=== PATIENT | female | born 1945 | race Caucasian/White ===

== ENCOUNTER 2018-01-05 14:46 | Inpatient (IN) | payer OTHER ==
[~2018-01-05] VITALS: Ht 167.6 cm; Wt 100.5 kg
[~2018-01-05 14:46] MED LIST: AMLO-110 PO; CARV25TA2 PO; CLX20 PO; CMD5 PO; CRD200 PO; HYDC25 PO; LISI40TA PO; MGNO400 PO; POTA-639 PO; ZCR40 PO
[2018-01-05] MEDS ORDERED: MoRPHine SULFATE 4 MG/ML 1 ML CARP\\VIAL IV STA (15:12)
[2018-01-05] MEDS ORDERED: ONDANSETRON INJ 2 MG/ML 2 ML VIAL IV STA (15:12)
--- NOTE | 2018-01-05 15:23 | EMERGENCY ROOM VISIT NOTE ---
History Report prepared by Anthony: Rajinder Salazar Under the Supervision of: Dr. Mak Sylvester M.D. First contact with patient: 15:00 Chief Complaint: FALL Stated Complaint: FALL,HIT HEAD, BACK PAIN History of Present Illness The patient is a 72 year old white female with a past medical history of CVA, A- Fib, CHF, depression, dyslipidemia, GERD, HTN, cataract surgery, and migraines who presents to the ED with a cc of a sudden fall occurring an hour and a half ago. She hit the back of her head on concrete after losing her balance. Positive back pain that is worse with breathing that comes and goes. Negative abdominal pain and neck pain. She is on Coumadin for strokes and A-fib. Source of History: patient Onset: an hour and half ago Position: back, other (generalized) Timing: other (sudden) Modifying Factors (Worsening): breathing Associated Symptoms: + back pain, No neck pain, No abdominal pain Review of Systems See HPI for pertinent positives and negatives. A total of ten systems were reviewed and were otherwise negative. Past Medical & Surgical Medical Problems: (1) CHF exacerbation (2) Depression (3) Dyslipidemia (4) GERD (gastroesophageal reflux disease) (5) Hypertension (6) Hypoxia (7) Migraine headache Surgical Problems: (1) H/O total knee replacement Family History FH: coronary artery disease FH: diabetes mellitus FH: stroke Social History Smoking Status: Former Smoker Alcohol Use: occasionally Marital Status: Housing Status: lives with family Current/Historical Medications Scheduled Amiodarone HCl (Amiodarone HCl), 200 MG PO BID Amlodipine (Norvasc), 5 MG PO DAILY Carvedilol (Coreg), 1 TAB PO BID Citalopram Hydrobromide (Celexa), 20 MG PO DAILY Lisinopril (Zestril), 40 MG PO DAILY Magnesium Oxide (Magnesium-Oxide), 400 MG PO BID Potassium Chloride (Micro-K Ext Rel), 10 MEQ PO BID Simvastatin (Zocor), 80 MG PO QPM Warfarin Sod (Coumadin), 2.5 MG PO DAILY Allergies Coded Allergies: Penicillins (Verified Allergy, Unknown, unknown, 01/05/18) Sulfa Antibiotics (Verified Allergy, Unknown, UNKNOWN, 01/05/18) Physical Exam Vital Signs Date Time Temp Pulse Resp B/P (MAP) Pulse Ox O2 Delivery O2 Flow Rate FiO2 4/25/18 19:07 65 16 149/81 97 Room Air 01/05/18 18:19 97 Nasal Cannula 2.0 01/05/18 18:16 67 13 95 01/05/18 18:13 146/81 01/05/18 18:11 69 19 93 01/05/18 18:06 68 19 94 01/05/18 18:01 68 13 146/81 89 01/05/18 17:56 70 17 90 01/05/18 17:51 68 16 93 01/05/18 17:46 68 17 92 01/05/18 17:41 68 20 90 01/05/18 17:36 67 16 88 01/05/18 17:31 64 16 168/84 90 01/05/18 17:26 67 15 92 01/05/18 17:21 70 11 91 01/05/18 17:16 66 92 01/05/18 17:11 69 92 01/05/18 17:01 182/86 01/05/18 16:56 70 20 96 01/05/18 16:51 65 13 93 01/05/18 16:46 69 22 94 01/05/18 16:41 67 20 91 01/05/18 16:36 67 23 90 01/05/18 16:32 68 01/05/18 16:31 68 29 181/94 94 01/05/18 16:28 190/89 01/05/18 16:01 58 10 160/67 93 01/05/18 15:56 63 13 100 01/05/18 15:51 95 Room Air 01/05/18 15:51 64 15 95 01/05/18 15:46 64 13 93 01/05/18 15:41 61 16 97 01/05/18 15:39 145/75 01/05/18 15:31 170/79 01/05/18 14:50 36.4 57 20 172/79 97 Room Air Physical Exam GENERAL: Awake, alert, well-appearing, NAD HENT: Normocephalic. Mild posterior occipital head pain. Mild erythema. No bleeding. EYES: Normal conjunctiva. Sclera non-icteric. PERRL. No anisocoria. NECK: Supple. No nuchal rigidity. FROM. No midline C-spine TTP RESPIRATORY: CTAB, no rhonchi, wheezing, crackles CARDIAC: RRR, no MRG ABDOMEN: Soft, NTND, BS+ MSK: Some midline mid thoracic T-spine TTP. No step offs. Posterior left rib pain. No crepitus. No ecchymosis. No chest wall TTP, no LE edema. No BLE or BUE pain NEURO: GCS 15, CN 2-12 intact, moves all 4s on command SKIN: No rash or jaundice noted. Medical Decision & Procedures ER Provider Diagnostic Interpretation: Radiology results as stated below per my review and radiologist interpretation: CT HEAD WITHOUT CONTRAST (CT) CLINICAL HISTORY: Head pain status post trauma COMPARISON STUDY: No previous studies for comparison. TECHNIQUE: Axial CT of the brain is performed from the vertex to the skull base. IV contrast was not administered for this examination. A dose lowering technique was utilized adhering to the principles of ALARA. CT DOSE: 638.56 mGycm FINDINGS: No intra or extra-axial mass lesions are visualized. There is no CT evidence of acute cortical infarction. There is no evidence of midline shift. There is no acute hemorrhage. No calvarial fractures are visualized. There are patchy white matter hypodensities likely on a small vessel basis. There is a lacunar infarct within the right centrum semiovale. There is no evidence of pathologic ventricular dilatation. There is no evidence of acute sinusitis IMPRESSION: No acute intracranial findings Electronically signed by: Phan Henderson M.D. 01/05/2018 4:30 PM Dictated Date/Time: 01/05/2018 4:[address] OF THE CHEST WITH IV CONTRAST CLINICAL HISTORY: Fall. COMPARISON STUDY: Chest radiograph September 07, 2015. TECHNIQUE: Following IV administration of 93 mL of Optiray-320, helical axial images of the chest were obtained. Sagittal and coronal reconstructions were viewed as well as maximal intensity projections on an independent 3-D workstation. A dose lowering technique was utilized adhering to the principles of ALARA. CT DOSE: 557.51 mGycm FINDINGS: There is no evidence of traumatic injury to the thoracic aorta. The heart is moderately enlarged. There is no pericardial effusion. Stents of atherosclerotic plaque of the coronary arteries is noted. There is thinning of the left ventricular apex with bulging. No pneumothorax is noted. There are multifocal groundglass opacities throughout the lungs. There is no pleural effusion. No acute rib or thoracic spine fractures identified. Moderate bilateral renal cortical thinning is noted. 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 There is no thoracic lymphadenopathy. IMPRESSION: 1. No definite acute traumatic findings within the chest. 2. Multifocal groundglass opacities throughout the lungs. Multifocal pneumonia is favored. Pulmonary contusions could appear similar although are considered less likely. A follow-up chest CT in 3 months to ensure resolution is recommended to exclude the much less likely possibility of a neoplastic process. 3. Moderate cardiomegaly and extensive coronary artery calcification. Electronically signed by: Giovanni Dixon M.D. 01/05/2018 4:45 PM Dictated Date/Time: 01/05/2018 4:[address] OF THE CERVICAL SPINE CLINICAL HISTORY: Neck pain status post trauma COMPARISON STUDY: No previous studies for comparison. CT DOSE: 432.03 mGycm TECHNIQUE: CT scan of the cervical spine was performed from the skull base to the thoracic inlet. Images are reviewed in the axial, sagittal, and coronal planes. IV contrast was not administered for this examination. A dose lowering technique was utilized adhering to the principles of ALARA. FINDINGS: There is a left mastoid effusion. There is no evidence for an apical pneumothorax. There is a 7 x 3 mm right apical pulmonary nodule. The prevertebral soft tissues are normal. No fractures or subluxations are visualized. There are multilevel degenerative changes. There is a developmentally incomplete posterior C1 arch IMPRESSION: No evidence of acute fracture or traumatic subluxation. Electronically signed by: Phan Henderson M.D. 01/05/2018 4:35 PM Dictated Date/Time: 01/05/2018 4:31 PM Laboratory Results 01/05/18 15:20 Red Blood Count 4.07, Mean Corpuscular Volume 98.5, Mean Corpuscular Hemoglobin 32.4, Mean Corpuscular Hemoglobin Concent 32.9, Mean Platelet Volume 9.5 01/05/18 15:20 Test 01/05/18 15:20 White Blood Count 24.57 K/uL (4.8-10.8) Red Blood Count 4.07 M/uL (4.2-5.4) Hemoglobin 13.2 g/dL (12.0-16.0) Hematocrit 40.1 % (37-47) Mean Corpuscular Volume 98.5 fL (80-100) Mean Corpuscular Hemoglobin 32.4 pg (25-34) Mean Corpuscular Hemoglobin Concent 32.9 g/dl (32-36) Platelet Count 223 K/uL (130-400) Mean Platelet Volume 9.5 fL (7.4-10.4) RDW Standard Deviation 52.2 fL (36.4-46.3) RDW Coefficient of Variation 14.6 % (11.5-14.5) Neutrophils % (Manual) 15.0 % Lymphocytes % (Manual) 84.1 % Monocytes % (Manual) 0.9 % Neutrophils # (Manual) 3.69 K/uL (1.4-6.5) Total Absolute Neutrophils 3.69 K/uL (1.4-6.5) Lymphocytes # (Manual) 20.66 K/uL (1.2-3.4) Total Absolute Lymphocytes 20.66 K/uL (1.2-3.4) Monocytes # (Manual) 0.22 K/uL (0.11-0.59) Smudge Cells PRESENT Prothrombin Time 32.1 SECONDS (9.0-12.0) Prothromb Time International Ratio 3.1 (0.9-1.1) Activated Partial Thromboplast Time 39.1 SECONDS (21.0-31.0) Partial Thromboplastin Ratio 1.5 Anion Gap 5.0 mmol/L (3-11) Est Creatinine Clear Calc Drug Dose 62.0 ml/min Estimated GFR () 66.7 Estimated GFR (Non- 57.5 BUN/Creatinine Ratio 18.9 (10-20) Calcium Level 9.2 mg/dl (8.5-10.1) Total Bilirubin 0.7 mg/dl (0.2-1) Direct Bilirubin 0.2 mg/dl (0-0.2) Aspartate Amino Transf (AST/SGOT) 24 U/L (15-37) Alanine Aminotransferase (ALT/SGPT) 42 U/L (12-78) Alkaline Phosphatase 144 U/L (45-117) Total Protein 7.2 gm/dl (6.4-8.2) Albumin 3.5 gm/dl (3.4-5.0) Laboratory results reviewed by me Medications Administered Medications (Trade) Dose Ordered Sig/Kurt Route Start Time Stop Time Status Last Admin Dose Admin Ondansetron HCl (Zofran Inj) 4 mg NOW STAT IV 01/05/18 15:12 01/05/18 15:18 DC 01/05/18 15:37 4 MG Morphine Sulfate (MoRPHine SULFATE INJ) 4 mg NOW STAT IV 01/05/18 15:12 01/05/18 15:18 DC 01/05/18 15:38 4 MG Tramadol HCl (Ultram Tab) 50 mg NOW STAT PO 01/05/18 16:28 01/05/18 16:29 DC 01/05/18 16:52 50 MG Morphine Sulfate (MoRPHine SULFATE INJ) 8 mg NOW STAT IV 01/05/18 17:43 01/05/18 17:44 DC 01/05/18 18:08 8 MG Ceftriaxone Sodium (Rocephin Inj) 1 gm NOW STAT IV 01/05/18 18:19 01/05/18 18:21 DC 01/05/18 18:27 1 GM Doxycycline Hyclate (Vibramycin Cap) 100 mg NOW STAT PO 01/05/18 18:20 01/05/18 18:21 DC 01/05/18 18:28 100 MG Cyclobenzaprine HCl (Flexeril Tab) 5 mg ONE STAT PO 01/05/18 18:54 01/05/18 18:55 DC 01/05/18 19:05 5 MG ECG Per My Interpretation Indication: back/shoulder pain, other (fall) Rate (beats per minute): 65 Rhythm: normal sinus Findings: other (Prolonged QT, normal axis, no overt STS changes or TWI) ED Course 1500: The patient was evaluated in room B11. A complete history and physical exam was performed. 1603: I reevaluated the patient, and she was doing well. 1653: I reassessed the patient, and she told me that she has a history of chronic leukemia. 1743: The patient was in pain, and her family is concerned about her well being at home. We are going to try to ambulate her again, then if they are still concerned, then we will talk about hospitalist evaluation. 1843: Upon reexamination, the patient was doing okay. I discussed the test results and treatment plan with her. The patient will be evaluated for further management. 194: The patient notes that her pain has improved. 1950: Discussed the patient's case with Dr. Nadia Coreas [facility] Hospitalist. The patient will be evaluated for further treatment and disposition. Medical Decision Nursing notes reviewed. Ancillary studies and prior records reviewed. The patient is a 72 year old white female with a past medical history of CVA, A- Fib, CHF, depression, dyslipidemia, GERD, HTN, cataract surgery, CLL and migraines who presents to the ED with a cc of a sudden fall occurring an hour and a half ago. Differential diagnosis: Etiologies such as fracture, dislocation, intra-abdominal, pneumothorax, intrathoracic , intracranial, neurologic, as well as other traumatic pathologies were entertained. Patient was seen and evaluated the bedside. Patient reportedly had a mechanical fall approximately one half hours prior to arrival. It occurred around 1:30 PM. Patient fallen backward struck her head. Patient did complain of some midline thoracic as well as posterior rib pain. Patient does take Coumadin for history of A. fib and PE. Patient does have a history of prior stroke. Patient had blood work completed along with a CT of the head C-spine and chest. Patient CTs were negative for any acute traumatic injury. There was concern for possible pneumonia. Patient does have a white blood cell count greater than 20,000. It is lymphocytic predominant the patient does relate that she does have a history of CLL. Not currently being treated. Patient otherwise is fairly well-appearing. Pain is mildly improved. Patient was given some Levaquin given her pneumonia. Patient was informed of this finding and told to continue her medications and to follow-up as an outpatient. Patient was able to ambulate to the bathroom without difficulty. Patient has a curb 65 score of 1 given the patient's age. Also the white count may be more related to her CLL and infection. There was a comment that this may be related to pulmonary contusion but this was deemed less likely. Patient was having some persistent pain. She was given additional pain medications. There is a concern from family that she may not be safe for home or even at the daughter's house. Plan was to reassess her after her pain medication and see if she would be suitable for outpatient follow-up and treatment versus pain control and possible rehab. Patient did have some mild hypoxia. The patient's sat on room air was 88%. Given the patient's pneumonia and white count along with her intractable pain did page the hospitalist to further discuss the patient. Medication Reconcilliation Current Medication List: was personally reviewed by me Blood Pressure Screening Patient's blood pressure: Elevated blood pressure Monitored by the hospitalist Consults Time Called: 1914 Consulting Physician: Dr. Piper BECERRIL Hospitalist Returned Call: 1949 Discussed the patient's case with Dr. Nadia BECERRIL Hospitalist. The patient will be evaluated for further treatment and disposition. Impression Primary Impression: Fall Additional Impressions: Contusion of multiple sites PNA (pneumonia) Scribe Attestation The scribe's documentation has been prepared under my direction and personally reviewed by me in its entirety. I confirm that the note above accurately reflects all work, treatment, procedures, and medical decision making performed by me. Departure Information Dispostion Being Evaluated By Hospitalist Referrals Rigo Robison M.D. (PCP) Problem Qualifiers Primary Impression: Fall Encounter type: initial encounter Qualified Codes: W19.XXXA - Unspecified fall, initial encounter Additional Impressions: PNA (pneumonia) Pneumonia type: due to unspecified organism Laterality: left Lung location : lower lobe of lung Qualified Codes: J18.1 - Lobar pneumonia, unspecified organism
[2018-01-05 15:29] LABS: HEMATOCRIT 40.1 % (37-47); HEMOGLOBIN 13.2 g/dL (12.0-16.0); MEAN CELL VOLUME 98.5 fL (80-100); MEAN CORPUSCULAR HEMOGLOBIN 32.4 pg (25-34); MEAN CORPUSCULAR HGB CONC 32.9 g/dl (32-36); MEAN PLATELET VOLUME 9.5 fL (7.4-10.4); PLATELET COUNT 223 K/uL (130-400); RED CELL DISTRIBUTION WIDTH CV 14.6 % (11.5-14.5); RED CELL DISTRIBUTION WIDTH SD 52.2 fL (36.4-46.3); WHITE BLOOD COUNT 24.57 K/uL (4.8-10.8)
[2018-01-05] MEDS ORDERED: OPTIRAY 320 IV PRN (15:30)
[2018-01-05 15:45] LABS: INR 3.1 (0.9-1.1); PTT PATIENT 39.1 SECONDS (21.0-31.0)
[2018-01-05 15:52] LABS: ALBUMIN 3.5 gm/dl (3.4-5.0); CALCIUM 9.2 mg/dl (8.5-10.1); CREATININE 0.97 mg/dl (0.60-1.20)
[2018-01-05 15:54] LABS: TOTAL PROTEIN 7.2 gm/dl (6.4-8.2)
[2018-01-05] MEDS ORDERED: TRAMADOL HCL 50 MG TAB PO STA (16:28)
--- NOTE | 2018-01-05 16:31 | DIAGNOSTIC IMAGING REPORT ---
CT HEAD WITHOUT CONTRAST (CT) CLINICAL HISTORY: Head pain status post trauma COMPARISON STUDY: No previous studies for comparison. TECHNIQUE: Axial CT of the brain is performed from the vertex to the skull base. IV contrast was not administered for this examination. A dose lowering technique was utilized adhering to the principles of ALARA. CT DOSE: 638.56 mGycm FINDINGS: No intra or extra-axial mass lesions are visualized. There is no CT evidence of acute cortical infarction. There is no evidence of midline shift. There is no acute hemorrhage. No calvarial fractures are visualized. There are patchy white matter hypodensities likely on a small vessel basis. There is a lacunar infarct within the right centrum semiovale. There is no evidence of pathologic ventricular dilatation. There is no evidence of acute sinusitis IMPRESSION: No acute intracranial findings Electronically signed by: Phan Henderson M.D. 01/05/2018 4:30 PM Dictated Date/Time: 01/05/2018 4:26 PM
--- NOTE | 2018-01-05 16:36 | DIAGNOSTIC IMAGING REPORT ---
CT OF THE CERVICAL SPINE CLINICAL HISTORY: Neck pain status post trauma COMPARISON STUDY: No previous studies for comparison. CT DOSE: 432.03 mGycm TECHNIQUE: CT scan of the cervical spine was performed from the skull base to the thoracic inlet. Images are reviewed in the axial, sagittal, and coronal planes. IV contrast was not administered for this examination. A dose lowering technique was utilized adhering to the principles of ALARA. FINDINGS: There is a left mastoid effusion. There is no evidence for an apical pneumothorax. There is a 7 x 3 mm right apical pulmonary nodule. The prevertebral soft tissues are normal. No fractures or subluxations are visualized. There are multilevel degenerative changes. There is a developmentally incomplete posterior C1 arch IMPRESSION: No evidence of acute fracture or traumatic subluxation. Electronically signed by: Phan Henderson M.D. 01/05/2018 4:35 PM Dictated Date/Time: 01/05/2018 4:31 PM
--- NOTE | 2018-01-05 16:47 | DIAGNOSTIC IMAGING REPORT ---
CT OF THE CHEST WITH IV CONTRAST CLINICAL HISTORY: Fall. COMPARISON STUDY: Chest radiograph September 07, 2015. TECHNIQUE: Following IV administration of 93 mL of Optiray-320, helical axial images of the chest were obtained. Sagittal and coronal reconstructions were viewed as well as maximal intensity projections on an independent 3-D workstation. A dose lowering technique was utilized adhering to the principles of ALARA. CT DOSE: 557.51 mGycm FINDINGS: There is no evidence of traumatic injury to the thoracic aorta. The heart is moderately enlarged. There is no pericardial effusion. Stents of atherosclerotic plaque of the coronary arteries is noted. There is thinning of the left ventricular apex with bulging. No pneumothorax is noted. There are multifocal groundglass opacities throughout the lungs. There is no pleural effusion. No acute rib or thoracic spine fractures identified. Moderate bilateral renal cortical thinning is noted. 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 There is no thoracic lymphadenopathy. IMPRESSION: 1. No definite acute traumatic findings within the chest. 2. Multifocal groundglass opacities throughout the lungs. Multifocal pneumonia is favored. Pulmonary contusions could appear similar although are considered less likely. A follow-up chest CT in 3 months to ensure resolution is recommended to exclude the much less likely possibility of a neoplastic process. 3. Moderate cardiomegaly and extensive coronary artery calcification. Electronically signed by: Giovanni Dixon M.D. 01/05/2018 4:45 PM Dictated Date/Time: 01/05/2018 4:35 PM
[2018-01-05] MEDS ORDERED: LEVAQUIN 750MG / 150ML D5W IV ONE (17:15)
[2018-01-05] MEDS ORDERED: MoRPHine SULFATE 10 MG/ML CARP/VIAL IV STA (17:43)
[2018-01-05] MEDS ORDERED: SIMV80TA2 PO (17:59)
[2018-01-05] MEDS ORDERED: CITA20TA9 PO (17:59)
[2018-01-05] MEDS ORDERED: CMD/25 PO (17:59)
[2018-01-05] MEDS ORDERED: POTA10CA28 PO (17:59)
[2018-01-05] MEDS ORDERED: CEFTRIAXONE SOD INJ 1 GM ADDVIAL IV STA (18:19)
[2018-01-05] MEDS ORDERED: DOXYCYCLINE HYCLATE 100 MG CAP PO STA (18:20)
[2018-01-05] MEDS ORDERED: CYCLOBENZAPRINE HCL 5 MG TAB PO STA (18:54)
--- NOTE | 2018-01-05 19:32 | History and Physical ---
History & Physical Date & Time of Service: Jan 05, 2018 at 19:26 Chief Complaint: Fall,Hit Head, Back Pain Primary Care Physician: Mary Jane Cruz D.O. History of Present Illness Source: patient, family, hospital records 72 y/o F Hx CLL, PAF, CVA x 2, CAD/NE, HTN, HPL, obese, GERD, depression, combined CHF. She takes Coumadin for her AF and suffered a mechanical fall with trauma to her back and the back of her head. She primarily complained of lower thoracic back pain on arrival to the ER. It was noted that her oxygen saturation was in the mid to high 80s, although she had not complained of SOB, a cough or a fever. A skeletal survey and a head CT did not support any significant trauma. A CT of the chest however, was consistent with a BL pneumonia. Past Medical/Surgical History 1) Combined CHF - diastolic dysfunction, EF 40% - echo 2014 2) Paroxysmal AF 3) CAD - history of NE - ischemia in distribution of LAD suspected on echo 4) HTN 5) HPL 6) Obese 7) CLL - leukocytosis in mid 20s at baseline 8) GERD 9) Depression 10 History of CVA x 2 Family History FH: coronary artery disease FH: diabetes mellitus FH: stroke Social History Smoking Status: Former Smoker Marital Status: Immunizations History of Influenza Vaccine: Yes Influenza Vaccine Date: Jun 13, 2011 History of Tetanus Vaccine?: No History of Pneumococcal: Yes Pneumococcal Date: Jun 13, 2011 History of Hepatitis B Vaccine: No Allergies Coded Allergies: Penicillins (Verified Allergy, Unknown, unknown, 01/05/18) Sulfa Antibiotics (Verified Allergy, Unknown, UNKNOWN, 01/05/18) Home Medications Scheduled Amiodarone HCl (Amiodarone HCl), 200 MG PO BID Amlodipine (Norvasc), 5 MG PO DAILY Carvedilol (Coreg), 1 TAB PO BID Citalopram Hydrobromide (Celexa), 20 MG PO DAILY Lisinopril (Zestril), 40 MG PO DAILY Magnesium Oxide (Magnesium-Oxide), 400 MG PO BID Potassium Chloride (Micro-K Ext Rel), 10 MEQ PO BID Simvastatin (Zocor), 80 MG PO QPM Warfarin Sod (Coumadin), 2.5 MG PO DAILY Review of Systems Constitutional: No fever, No chills, No sweats Eyes: No worsening of vision ENT: No hearing loss, No nasal symptoms Respiratory: No cough, No sputum, No wheezing, No shortness of breath Cardiovascular: No chest pain, No orthopnea, No PND Abdomen: No pain Musculoskeletal: + problem reported (PAin in mid back after fall) Genitourinary - Female: No dysuria, No urinary frequency, No urinary urgency Neurologic: + balance problems (Chronic unsteady gate per daughter), No paralysis, No numbness/tingling, No vertigo Endocrine: No fatigue Hematologic / Lymphatic: No abnormal bleeding/bruising Integumentary: No rash Allergic / Immunologic: No environmental allergies Physical Exam Vital Signs Date Time Temp Pulse Resp B/P (MAP) Pulse Ox O2 Delivery O2 Flow Rate FiO2 01/05/18 19:07 65 16 149/81 97 Room Air 01/05/18 18:19 97 Nasal Cannula 2.0 01/05/18 18:16 67 13 95 01/05/18 18:13 146/81 01/05/18 18:11 69 19 93 01/05/18 18:06 68 19 94 01/05/18 18:01 68 13 146/81 89 01/05/18 17:56 70 17 90 01/05/18 17:51 68 16 93 01/05/18 17:46 68 17 92 01/05/18 17:41 68 20 90 01/05/18 17:36 67 16 88 01/05/18 17:31 64 16 168/84 90 01/05/18 17:26 67 15 92 01/05/18 17:21 70 11 91 01/05/18 17:16 66 92 01/05/18 17:11 69 92 01/05/18 17:01 182/86 01/05/18 16:56 70 20 96 01/05/18 16:51 65 13 93 01/05/18 16:46 69 22 94 01/05/18 16:41 67 20 91 01/05/18 16:36 67 23 90 01/05/18 16:32 68 01/05/18 16:31 68 29 181/94 94 01/05/18 16:28 190/89 01/05/18 16:01 58 10 160/67 93 01/05/18 15:56 63 13 100 01/05/18 15:51 95 Room Air 01/05/18 15:51 64 15 95 01/05/18 15:46 64 13 93 01/05/18 15:41 61 16 97 01/05/18 15:39 145/75 01/05/18 15:31 170/79 01/05/18 14:50 36.4 57 20 172/79 97 Room Air General Appearance: WD/WN, no apparent distress Head: normocephalic, + pertinent finding (Erythmea without significant hematoma at back of head) Eyes: normal inspection, EOMI ENT: normal ENT inspection, pharynx normal Neck: supple, no JVD Respiratory/Chest: chest non-tender, lungs clear, + pertinent finding (NO audible crackle or wheezing) Cardiovascular: regular rate, rhythm, + systolic murmur, + abnormal rhythm (LE edema - L > R due to previous fracture) Abdomen/GI: normal bowel sounds, non tender, soft Back: normal inspection, no CVA tenderness, + pertinent finding (There is some tenderness to palpation of the mid back) Extremities/Musculoskelatal: + pertinent finding (LE edema - L > R due to previous fracture) Neurologic/Psych: inside meter tester II-XII nml as tested, no motor/sensory deficits, alert Skin: normal color Diagnostics Laboratory Results Results Past 24 Hours Test 01/05/18 15:20 Range/Units White Blood Count 24.57 4.8-10.8 K/uL Red Blood Count 4.07 4.2-5.4 M/uL Hemoglobin 13.2 12.0-16.0 g/dL Hematocrit 40.1 37-47 % Mean Corpuscular Volume 98.5 80-100 fL Mean Corpuscular Hemoglobin 32.4 25-34 pg Mean Corpuscular Hemoglobin Concent 32.9 32-36 g/dl Platelet Count 223 130-400 K/uL Mean Platelet Volume 9.5 7.4-10.4 fL RDW Standard Deviation 52.2 36.4-46.3 fL RDW Coefficient of Variation 14.6 11.5-14.5 % Neutrophils % (Manual) 15.0 % Lymphocytes % (Manual) 84.1 % Monocytes % (Manual) 0.9 % Neutrophils # (Manual) 3.69 1.4-6.5 K/uL Total Absolute Neutrophils 3.69 1.4-6.5 K/uL Lymphocytes # (Manual) 20.66 1.2-3.4 K/uL Total Absolute Lymphocytes 20.66 1.2-3.4 K/uL Monocytes # (Manual) 0.22 0.11-0.59 K/uL Smudge Cells PRESENT Prothrombin Time 32.1 9.0-12.0 SECONDS Prothromb Time International Ratio 3.1 0.9-1.1 Activated Partial Thromboplast Time 39.1 21.0-31.0 SECONDS Partial Thromboplastin Ratio 1.5 Sodium Level 141 136-145 mmol/L Potassium Level 4.0 3.5-5.1 mmol/L Chloride Level 111 98-107 mmol/L Carbon Dioxide Level 25 21-32 mmol/L Anion Gap 5.0 3-11 mmol/L Blood Urea Nitrogen 18 7-18 mg/dl Creatinine 0.97 0.60-1.20 mg/dl Est Creatinine Clear Calc Drug Dose 62.0 ml/min Estimated GFR () 66.7 Estimated GFR (Non- 57.5 BUN/Creatinine Ratio 18.9 10-20 Random Glucose 117 70-99 mg/dl Calcium Level 9.2 8.5-10.1 mg/dl Total Bilirubin 0.7 0.2-1 mg/dl Direct Bilirubin 0.2 0-0.2 mg/dl Aspartate Amino Transf (AST/SGOT) 24 15-37 U/L Alanine Aminotransferase (ALT/SGPT) 42 12-78 U/L Alkaline Phosphatase 144 45-117 U/L Total Protein 7.2 6.4-8.2 gm/dl Albumin 3.5 3.4-5.0 gm/dl Diagnostic Radiology CT: 1. No definite acute traumatic findings within the chest. 2. Multifocal groundglass opacities throughout the lungs. Multifocal pneumonia is favored. Pulmonary contusions could appear similar although are considered less likely. A follow-up chest CT in 3 months to ensure resolution is recommended to exclude the much less likely possibility of a neoplastic process. 3. Moderate cardiomegaly and extensive coronary artery calcification. EKG Sinus - borderline QT at 500 Impression Assessment and Plan 72 y/o F Hx CLL, PAF, CVA x 2, CAD/NE, HTN, HPL, obese, GERD, depression, combined CHF. She takes Coumadin for her AF and suffered a mechanical fall with trauma to her back and the back of her head. She primarily complained of lower thoracic back pain on arrival to the ER. It was noted that her oxygen saturation was in the mid to high 80s, although she had not complained of SOB, a cough or a fever. A skeletal survey and a head CT did not support any significant trauma. A CT of the chest however, was consistent with a BL pneumonia. 1) Fall with head trauma on Coumadin - initial CT negative - nonfocal neuro exam - will repeat imaging AM - Coumadin held 2) PNM - clinical picture is unimpressive although her 02 was low and I suppose there may have been a degree of weakness which lead to her fall. It may be that her sat is chronically low due to obesity as well. We are treating largely due to the CT reading. She will be treated with BID Doxy as her QT is borderline and we would need atypical coverage. We will need to assess for 02 requirements AM. 3) Combined CHF - euvolemic at present - cont Lisinopril - does not normally need diuretics. 4) PAF - sinus at present - cont Amio - Coumadin held - IR is currently therapeutic. 5) HTN - cont Lisinopril, Norvasc 6) CAD - no evidence of ACS - cont Statin - does not take ASA or a B earl presently Full code - Prophylaxis held - INR is high Total time for this admit including review of labs, meds, imaging, records - discussion with pt, daughter, ER attending - 39 min' Resuscitation Status VTE Prophylaxis Will order VTE Prophylaxis: No Reason for no VTE drug order: Contraindicated Reason no Mechanical VTE Order: Contraindicated
[2018-01-05] MEDS ORDERED: ALBUT/IPRATROP 3MG/0.5MG NEB 3 ML VIAL INH PRN (19:45)
[2018-01-05] MEDS ORDERED: ALUMINUM/MAGNESIUM/SIMETH (MAALOX MAX) 30 ML UDC PO PRN (20:00)
[2018-01-05] MEDS ORDERED: POLYETHYLENE (MIRALAX) 17 GM PACK PO PRN (20:00)
[2018-01-05] MEDS ORDERED: MAGNESIUM HYDROXIDE SUSP 30 ML UDC PO PRN (20:00)
[2018-01-05] MEDS: SIMVASTATIN 80 MG TAB PO SCH (22:46)
[2018-01-05] MEDS: MAGNESIUM OXIDE 400 MG TAB PO SCH (22:47)
[2018-01-05] MEDS: POTASSIUM CHLORIDE 10 MEQ TABCR PO SCH (22:47)
[2018-01-05] MEDS: CARVEDILOL 25 MG TAB PO SCH (22:48)
[2018-01-05] MEDS: AMIODARONE 200 MG TAB PO SCH (22:49)
[2018-01-06] VITALS (7 sets, daily range): BP systolic 118–171; BP diastolic 65–81; PULSE 52–62; TEMP 36.4–36.7; O2SAT 91–97; Ht 167.6 cm; Wt 100.5 kg
[2018-01-06] MEDS: ACETAMINOPHEN 325 MG TAB PO PRN ×4 (03:48→22:05)
[2018-01-06] MEDS: DOXYCYCLINE IV 100 MG in DEXTROSE 5% 100ML 100 ML IV SCH ×2 (06:38→17:47)
[2018-01-06 07:34] LABS: HEMATOCRIT 39.1 % (37-47); HEMOGLOBIN 12.6 g/dL (12.0-16.0); MEAN CELL VOLUME 99.7 fL (80-100); MEAN CORPUSCULAR HEMOGLOBIN 32.1 pg (25-34); MEAN CORPUSCULAR HGB CONC 32.2 g/dl (32-36); MEAN PLATELET VOLUME 9.7 fL (7.4-10.4); PLATELET COUNT 217 K/uL (130-400); RED CELL DISTRIBUTION WIDTH CV 14.7 % (11.5-14.5); RED CELL DISTRIBUTION WIDTH SD 53.4 fL (36.4-46.3); WHITE BLOOD COUNT 21.49 K/uL (4.8-10.8)
[2018-01-06] MEDS: CARVEDILOL 25 MG TAB PO SCH ×2 (07:55→21:27)
[2018-01-06] MEDS: CITALOPRAM 20 MG TAB PO SCH (07:55)
[2018-01-06] MEDS: AMIODARONE 200 MG TAB PO SCH ×2 (07:55→21:26)
[2018-01-06] MEDS: AMLODIPINE BESYLATE 5 MG TAB PO SCH (07:56)
[2018-01-06] MEDS: MAGNESIUM OXIDE 400 MG TAB PO SCH ×2 (07:56→21:27)
[2018-01-06] MEDS: LISINOPRIL 40 MG TAB PO SCH (07:56)
[2018-01-06] MEDS: POTASSIUM CHLORIDE 10 MEQ TABCR PO SCH ×2 (07:56→21:27)
[2018-01-06 08:13] LABS: CALCIUM 8.7 mg/dl (8.5-10.1); CREATININE 0.67 mg/dl (0.60-1.20)
[2018-01-06 09:00] LABS: INR 2.8 (0.9-1.1)
[2018-01-06 09:11] LABS: POTASSIUM 3.9 mmol/L (3.5-5.1)
[2018-01-06] MEDS ORDERED: FUROSEMIDE 20 MG TAB PO STA (14:17)
--- NOTE | 2018-01-06 17:05 | Family Medicine Progress Note ---
Progress Note Date of Service Jan 06, 2018. Subjective Pt evaluation today including: conversation w/ patient, physical exam, chart review, lab review Pain: mild back pain PO Intake: tolerating Voiding: no voiding problems Pt reports falling backwards while on the porch step and hitting back of her head and her back on the sidewalk after losing balance as her R knee gave out ( needs knee replacement). Also broke L ankle 12 weeks ago which is still healing. Her scalp and back are sore. No BORJAS/dizziness, sob, cp. Lives with her . Last BM was yesterday Constitutional: No fever Respiratory: No shortness of breath Cardiovascular: No chest pain Abdomen: No pain, No nausea, No vomiting Musculoskeletal: + problem reported (thoracic back pain) Female : No dysuria Medications Current Inpatient Medications Medications (Trade) Dose Ordered Sig/Kurt Route Start Time Stop Time Status Last Admin Dose Admin Ioversol (Optiray 320) 100 ml UD PRN IV 01/05/18 15:30 01/09/18 15:29 Amiodarone HCl (Cordarone Tab) 200 mg BID PO 01/05/18 21:00 02/04/18 20:59 01/06/18 07:55 200 MG Amlodipine Besylate (Norvasc Tab) 5 mg DAILY PO 01/06/18 08:00 02/05/18 08:59 01/06/18 07:56 5 MG Carvedilol (Coreg Tab) 25 mg BID PO 01/05/18 21:00 02/04/18 20:59 01/06/18 07:55 25 MG Citalopram Hydrobromide (celeXA TAB) 20 mg DAILY PO 01/06/18 08:00 02/05/18 08:59 01/06/18 07:55 20 MG Lisinopril (Zestril Tab) 40 mg DAILY PO 01/06/18 08:00 02/05/18 08:59 01/06/18 07:56 40 MG Magnesium Oxide (Mag-Ox Tab) 400 mg BID PO 01/05/18 21:00 02/04/18 20:59 01/06/18 07:56 400 MG Potassium Chloride (Klor-Con M10) 10 meq BID PO 01/05/18 21:00 02/04/18 20:59 01/06/18 07:56 10 MEQ Simvastatin (Zocor Tab) 80 mg QPM PO 01/05/18 21:00 02/04/18 20:59 01/05/18 22:46 80 MG Albuterol/ Ipratropium (Duoneb) 3 ml Q6H PRN INH 01/05/18 19:45 02/04/18 19:44 Doxycycline Hyclate 100 mg/ Dextrose 110 ml @ 50 mls/hr Q12H IV 01/06/18 06:00 01/13/18 05:59 01/06/18 06:38 50 MLS/HR Acetaminophen (Tylenol Tab) 650 mg Q4H PRN PO 01/05/18 20:00 02/04/18 19:59 01/06/18 16:34 650 MG Al Hydrox/Mg Hydrox/Simethicone (Maalox Max Susp) 15 ml Q4H PRN PO 01/05/18 20:00 02/04/18 19:59 Magnesium Hydroxide (Milk Of Magnesia Susp) 30 ml Q6H PRN PO 01/05/18 20:00 02/04/18 19:59 Polyethylene (Miralax Powder Packet) 17 gm DAILY PRN PO 01/05/18 20:00 02/04/18 19:59 Furosemide (Lasix Tab) 20 mg QAM PO 01/07/18 08:00 02/06/18 07:59 Objective Vital Signs Date Time Temp Pulse Resp B/P (MAP) Pulse Ox O2 Delivery O2 Flow Rate FiO2 01/06/18 16:04 Room Air 01/06/18 15:21 52 97 01/06/18 08:30 91 Nasal Cannula 2.0 01/06/18 08:00 36.4 57 16 171/68 (102) 91 Nasal Cannula 2.0 01/06/18 03:49 36.4 18 168/81 Nasal Cannula 2.0 01/05/18 20:47 63 18 143/71 96 Nasal Cannula 2.5 01/05/18 20:42 63 01/05/18 19:07 65 16 149/81 97 Room Air 01/05/18 18:19 97 Nasal Cannula 2.0 01/05/18 18:16 67 13 95 01/05/18 18:13 146/81 01/05/18 18:11 69 19 93 01/05/18 18:06 68 19 94 01/05/18 18:01 68 13 146/81 89 01/05/18 17:56 70 17 90 01/05/18 17:51 68 16 93 01/05/18 17:46 68 17 92 01/05/18 17:41 68 20 90 01/05/18 17:36 67 16 88 01/05/18 17:31 64 16 168/84 90 01/05/18 17:26 67 15 92 01/05/18 17:21 70 11 91 01/05/18 17:16 66 92 01/05/18 17:11 69 92 01/05/18 17:01 182/86 01/05/18 16:56 70 20 96 01/05/18 16:51 65 13 93 Physical Exam General Appearance: no apparent distress Eyes: normal inspection Neck: supple Respiratory/Chest: lungs clear, normal breath sounds, + pertinent finding (no crackles or wheezing appreciated; mildly decreased BS likely due to body habitus ) Cardiovascular: regular rate, rhythm, no murmur Abdomen: normal bowel sounds, non tender, soft Extremities: + swelling (2+ b/l LE edema), + pertinent finding (L ankle wrapped ) Skin: + pertinent finding (bruise on posterior scalp region) Notes: Back: thoracic region mild TTP with L paraspinal TTP Laboratory Results 01/06/18 06:59 01/06/18 06:59 01/06/18 08:39 Test 01/06/18 06:59 01/06/18 08:39 Red Blood Count 3.92 M/uL (4.2-5.4) Mean Corpuscular Volume 99.7 fL (80-100) Mean Corpuscular Hemoglobin 32.1 pg (25-34) Mean Corpuscular Hemoglobin Concent 32.2 g/dl (32-36) RDW Standard Deviation 53.4 fL (36.4-46.3) RDW Coefficient of Variation 14.7 % (11.5-14.5) Mean Platelet Volume 9.7 fL (7.4-10.4) Anion Gap 3.0 mmol/L (3-11) Est Creatinine Clear Calc Drug Dose 87.4 ml/min Estimated GFR () 100.4 Estimated GFR (Non- 86.6 BUN/Creatinine Ratio 21.0 (10-20) Calcium Level 8.7 mg/dl (8.5-10.1) Prothrombin Time 28.4 SECONDS (9.0-12.0) Prothromb Time International Ratio 2.8 (0.9-1.1) Magnesium Level 2.0 mg/dl (1.8-2.4) Assessment and Plan 72 y/o F Hx CLL, PAF, CVA x 2, CAD/MD, HTN, HLD, obesity, GERD, depression, combined CHF. Was on Coumadin for her AF and suffered a mechanical fall with trauma to her back and posterior head. Presented wth lower thoracic back pain to the ED. Her oxygen saturation was found to be in the mid to high 80s, but she did not complain of SOB, cough or fever. Skeletal survey and head CT ruled out significant trauma. CT chest however was concerning for bilateral pneumonia. Fall/Trauma on Coumadin - Initial and repeat head CT negative - no acute IC pathology - C-spine CT - no fracture, or traumatic subluxation - nonfocal neuro exam - received Flexeril 5mg and morphine 8mg once for pain - Continue Tylenol 650mg Q4H PRN for pain B/l Pneumonia based on CT with unimpressive clinical picture except low O2 sat and weakness leading to fall - CT chest - multifocal ground glass opacities consistent with multifocal pneumonia vs. pulmonary contusions which is less likely - f/u in 3 months to ensure resolved - Supplemental O2 for Sat > 92% - wean as tolerated - On Doxycycline 100mg IV BID given QT borderline for atypical coverage Combined CHF - Euvolemic at present - Continue Lasix 20mg daily - Continue Lisinopril 40mg daily PAD - sinus at present - Continue Amiodarone 200mg BID - Held Coumadin IR - therapeutic today 2.8 HTN - Continue Lisinopril 40mg daily - Continue Norvac 5mg daily CAD - no evidence of ACS - continue Simvastatin 80mg QPM CLL - baseline WBC is in the 20s Full code DVT Prophylaxis: Coumadin held for elevated INR Resident Physician Supervision Note: I was present with Dr. Goddard during the history and exam. I discussed the case with the resident and agree with the findings and plan as documented in the note. Any exceptions or clarifications are listed here: Clinically, she looks well this afternoon. Her CT findings do not fit with pneumonia clinically (she is afebrile, no real cough). She notes some fatigue, although it does not sound as if it was profound enough to be associated with an illness nor cause her fall. Her elevated WBC is attributable to her underlying CLL. Doxycycline is reasonable, since it will cover atypicals, and will not prolong her QT (like Zithromax). I'd avoid Levaquin given her recent orthopedic injuries. PLAN 1) CXR in AM 2) Wean O2. 3) Likely discharge in AM. Will need to follow up with PCP regarding chest CT abnormalities. Documented By: Peyman Lyles Resident Involvement: Resident Care Provided Care Provided: Adult Hospital Medicine
[2018-01-06] MEDS: SIMVASTATIN 80 MG TAB PO SCH (21:27)
[2018-01-07] MEDS: ACETAMINOPHEN 325 MG TAB PO PRN (05:21)
[2018-01-07] MEDS: DOXYCYCLINE IV 100 MG in DEXTROSE 5% 100ML 100 ML IV SCH (05:21)
[2018-01-07 06:14] LABS: HEMOGLOBIN 11.4 g/dL (12.0-16.0); MEAN CORPUSCULAR HEMOGLOBIN 32.6 pg (25-34); MEAN CORPUSCULAR HGB CONC 32.6 g/dl (32-36); MEAN PLATELET VOLUME 9.3 fL (7.4-10.4); PLATELET COUNT 186 K/uL (130-400); RED CELL DISTRIBUTION WIDTH CV 14.7 % (11.5-14.5); RED CELL DISTRIBUTION WIDTH SD 53.2 fL (36.4-46.3); WHITE BLOOD COUNT 16.85 K/uL (4.8-10.8)
[2018-01-07 06:33] LABS: INR 2.7 (0.9-1.1)
[2018-01-07 06:49] LABS: ALBUMIN 2.7 gm/dl (3.4-5.0); CALCIUM 8.6 mg/dl (8.5-10.1); CREATININE 0.8 mg/dl (0.60-1.20); POTASSIUM 4.1 mmol/L (3.5-5.1)
[2018-01-07 06:58] LABS: TOTAL PROTEIN 5.9 gm/dl (6.4-8.2)
--- NOTE | 2018-01-07 07:38 | DIAGNOSTIC IMAGING REPORT ---
CT HEAD WITHOUT CONTRAST (CT) CLINICAL HISTORY: Head trauma. Patient on Coumadin. COMPARISON STUDY: 01/05/2018 TECHNIQUE: Axial CT of the brain is performed from the vertex to the skull base. IV contrast was not administered for this examination. A dose lowering technique was utilized adhering to the principles of ALARA. CT DOSE: 690.05 mGycm FINDINGS: No intra or extra-axial mass lesions are visualized. There is no CT evidence of acute cortical infarction. There is no evidence of midline shift. There is no acute hemorrhage. No calvarial fractures are visualized. There are patchy white matter hypodensities likely on a small vessel basis. There is a lacunar infarct in the right centrum semiovale There is no evidence of pathologic ventricular dilatation. There is no evidence of acute sinusitis IMPRESSION: No acute intracranial findings Electronically signed by: Phan Henderson M.D. 01/06/2018 8:12 AM Dictated Date/Time: 01/06/2018 8:11 AM
[2018-01-07 07:40] LABS: BASO % 0.2 %; BASO ABS # 0.03 K/uL (0-0.2); EOS % 1.4 %; EOS ABS # 0.24 K/uL (0-0.5); IG# 0.04 K/uL (0.00-0.02); LYMPH ABS # 10.45 K/uL (1.2-3.4); MONO % 5.2 %; MONO ABS # 0.88 K/uL (0.11-0.59); NEUT ABS # 5.21 K/uL (1.4-6.5)
[2018-01-07 07:55] VITALS: BP 148/77; PULSE 57; TEMP 36.8; O2SAT 94
--- NOTE | 2018-01-07 08:11 | Discharge Instructions ---
Discharge Instructions Date of Service Jan 07, 2018. Admission Reason for Admission: Fall, Pna Discharge Discharge Diagnosis / Problem: Pneumonia Discharge Goals Goal(s): Decrease discomfort, Diagnostic testing, Therapeutic intervention Activity Recommendations Activity Limitations: resume your previous activity . Instructions / Follow-Up Instructions / Follow-Up Ms. Diaz you presented after a fall. We obtained images of your head, and neck which were reassuring. We also got pictures of your lung because you were short of breath and you were found to have pneumonia. We treated you with an antibiotic called doxycycline which we are sending you home with as well. You were discharged once you were doing better and off the oxygen. Please follow the following instructions. -Please take Doxycycline twice a day for another 8 days -Please take Tylenol as needed for back pain -Please continue your remaining home medications as prescribed -Please follow up with your doctor in 3-4 days -Please go to your doctor or to the nearest emergency room if you are feeling short of breath, having chest pain, headache, dizziness or worsening back pain Current Hospital Diet Patient's current hospital diet: AHA Diet (Heart Healthy) Discharge Diet Recommended Diet: AHA Diet (Heart Healthy) Pending Studies Studies pending at discharge: no Medical Emergencies . Who to Call and When: Medical Emergencies: If at any time you feel your situation is an emergency, please call 911 immediately. . Non-Emergent Contact Non-Emergency issues call your: Primary Care Provider Call Non-Emergent contact if: temperature is above 101 . . "Provider Documentation" section prepared by Martinez Goddard. .
--- NOTE | 2018-01-07 08:47 | DIAGNOSTIC IMAGING REPORT ---
CHEST ONE VIEW PORTABLE CLINICAL HISTORY: Pneumonia. Shortness of breath. COMPARISON STUDY: Chest CT January 05, 2018 FINDINGS: There is no pneumothorax or pleural effusion. Moderate cardiomegaly is noted. There is pulmonary vascular congestion without overt edema. Mild bilateral airspace opacities are noted. IMPRESSION: 1. No significant change in mild interstitial thickening and scattered bilateral airspace opacities since prior chest CT. 2. Moderate cardiomegaly. Electronically signed by: Giovanni Dixon M.D. 01/07/2018 8:45 AM Dictated Date/Time: 01/07/2018 8:38 AM
[2018-01-07] MEDS: MAGNESIUM OXIDE 400 MG TAB PO SCH (09:00)
[2018-01-07] MEDS: CARVEDILOL 25 MG TAB PO SCH (09:00)
[2018-01-07] MEDS: FUROSEMIDE 20 MG TAB PO SCH ×2 (09:00→09:08)
[2018-01-07] MEDS: POTASSIUM CHLORIDE 10 MEQ TABCR PO SCH (09:00)
[2018-01-07] MEDS: AMLODIPINE BESYLATE 5 MG TAB PO SCH (09:00)
[2018-01-07] MEDS: CITALOPRAM 20 MG TAB PO SCH (09:00)
[2018-01-07] MEDS: AMIODARONE 200 MG TAB PO SCH (09:01)
[2018-01-07] MEDS: LISINOPRIL 40 MG TAB PO SCH (09:01)
[2018-01-07 09:43] VITALS: PULSE 64
[2018-01-07] MEDS ORDERED: DOXY100C76 PO (11:55)
[2018-01-07 13:03] VITALS: BP 148/77; PULSE 64; TEMP 36.8; O2SAT 94
[2018-01-07] MEDS ORDERED: WARFARIN SOD 2.5 MG TAB PO SCH (16:00)
--- NOTE | 2018-01-07 17:04 | Discharge Summary ---
Discharge Summary Date of Service Jan 07, 2018. Discharge Summary Admission Date: Jan 05, 2018 at 20:21 Discharge Date: Jan 07, 2018 Principal Diagnosis: Bilateral pneumonia Problems/Secondary Diagnoses: Back pain and scalp ecchymosis 2/2 mechanical fall CLL Combined CHF PAF HTN CAD/ND CVAx2 HTN HLD GERD depression obesity (1) H/O total knee replacement Status: Chronic Immunizations: Have You Had Influenza Vaccine: Yes Influenza Vaccine Date: Jun 13, 2011 History of Tetanus Vaccine?: No History of Pneumococcal: Yes Pneumococcal Date: Jun 13, 2011 History of Hepatitis B Vaccine: No Procedures: CT HEAD WITHOUT CONTRAST (CT) CLINICAL HISTORY: Head trauma. Patient on Coumadin. COMPARISON STUDY: 01/05/2018 TECHNIQUE: Axial CT of the brain is performed from the vertex to the skull base. IV contrast was not administered for this examination. A dose lowering technique was utilized adhering to the principles of ALARA. CT DOSE: 690.05 mGycm FINDINGS: No intra or extra-axial mass lesions are visualized. There is no CT evidence of acute cortical infarction. There is no evidence of midline shift. There is no acute hemorrhage. No calvarial fractures are visualized. There are patchy white matter hypodensities likely on a small vessel basis. There is a lacunar infarct in the right centrum semiovale There is no evidence of pathologic ventricular dilatation. There is no evidence of acute sinusitis IMPRESSION: No acute intracranial findings CT OF THE CERVICAL SPINE CLINICAL HISTORY: Neck pain status post trauma COMPARISON STUDY: No previous studies for comparison. CT DOSE: 432.03 mGycm TECHNIQUE: CT scan of the cervical spine was performed from the skull base to the thoracic inlet. Images are reviewed in the axial, sagittal, and coronal planes. IV contrast was not administered for this examination. A dose lowering technique was utilized adhering to the principles of ALARA. FINDINGS: There is a left mastoid effusion. There is no evidence for an apical pneumothorax. There is a 7 x 3 mm right apical pulmonary nodule. The prevertebral soft tissues are normal. No fractures or subluxations are visualized. There are multilevel degenerative changes. There is a developmentally incomplete posterior C1 arch IMPRESSION: No evidence of acute fracture or traumatic subluxation. CT OF THE CHEST WITH IV CONTRAST CLINICAL HISTORY: Fall. COMPARISON STUDY: Chest radiograph September 07, 2015. TECHNIQUE: Following IV administration of 93 mL of Optiray-320, helical axial images of the chest were obtained. Sagittal and coronal reconstructions were viewed as well as maximal intensity projections on an independent 3-D workstation. A dose lowering technique was utilized adhering to the principles of ALARA. CT DOSE: 557.51 mGycm FINDINGS: There is no evidence of traumatic injury to the thoracic aorta. The heart is moderately enlarged. There is no pericardial effusion. Stents of atherosclerotic plaque of the coronary arteries is noted. There is thinning of the left ventricular apex with bulging. No pneumothorax is noted. There are multifocal groundglass opacities throughout the lungs. There is no pleural effusion. No acute rib or thoracic spine fractures identified. Moderate bilateral renal cortical thinning is noted. 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 There is no thoracic lymphadenopathy. IMPRESSION: 1. No definite acute traumatic findings within the chest. 2. Multifocal groundglass opacities throughout the lungs. Multifocal pneumonia is favored. Pulmonary contusions could appear similar although are considered less likely. A follow-up chest CT in 3 months to ensure resolution is recommended to exclude the much less likely possibility of a neoplastic process. 3. Moderate cardiomegaly and extensive coronary artery calcification. CHEST ONE VIEW PORTABLE CLINICAL HISTORY: Pneumonia. Shortness of breath. COMPARISON STUDY: Chest CT January 05, 2018 FINDINGS: There is no pneumothorax or pleural effusion. Moderate cardiomegaly is noted. There is pulmonary vascular congestion without overt edema. Mild bilateral airspace opacities are noted. IMPRESSION: 1. No significant change in mild interstitial thickening and scattered bilateral airspace opacities since prior chest CT. 2. Moderate cardiomegaly. Consultations: none Medication Reconciliation New Medications: Doxycycline Monohydrate (Monodox) 100 Mg Cap 100 MG PO BID for 8 Days, #17 CAP Continued Medications: Amiodarone HCl (Amiodarone HCl) 200 Mg Tab 200 MG PO BID for 30 Days, TAB Amlodipine (Norvasc) 5 Mg Tab 5 MG PO DAILY, TAB Carvedilol (Coreg) 25 Mg Tab 1 TAB PO BID for 90 Days, #180 TAB 1 Refill Citalopram Hydrobromide (Celexa) 20 Mg Tab 20 MG PO DAILY Lisinopril (Zestril) 40 Mg Tab 40 MG PO DAILY, TAB Magnesium Oxide (Magnesium-Oxide) 400 Mg Tab 400 MG PO BID for 7 Days, TAB Potassium Chloride (Micro-K Ext Rel) 10 Meq Capcr 10 MEQ PO BID Simvastatin (Zocor) 80 Mg Tab 80 MG PO QPM Warfarin Sod (Coumadin) 2.5 Mg Tab 2.5 MG PO DAILY Discharge Exam Back R sided thoracic region ecchymosis without TTP; thoracic region L sided paraspinal TTP Review of Systems: Constitutional: No fever Respiratory: No shortness of breath Cardiovascular: No chest pain Abdomen: No pain, No nausea, No vomiting Musculoskeletal: + problem reported (Back pain mild ) Genitourinary - Female: No dysuria Neurologic: No weakness, No numbness/tingling Physical Exam: General Appearance: no apparent distress Eyes: normal inspection Neck: supple Respiratory/Chest: lungs clear, normal breath sounds Cardiovascular: regular rate, rhythm, no murmur Abdomen / GI: normal bowel sounds, non tender, soft Extremities: no calf tenderness, + swelling (1+ b/l LE edema), + pertinent finding (L ankle wrapped (recent fracture)) Neurologic/Psychiatric: alert, oriented x 3 Skin: + pertinent finding (scalp healing ecchymosis ) Hospital Course 72 y/o F Hx CLL, PAF, CVA x 2, CAD/ND, HTN, HLD, obesity, GERD, depression, combined CHF. Was on Coumadin for her AF and suffered a mechanical fall with trauma to her back and posterior head. Presented with lower thoracic back pain to the ED. Her oxygen saturation was found to be in the mid to high 80s, but she did not complain of SOB, cough or fever. Skeletal survey and head CT ruled out significant trauma. CT chest however was concerning for bilateral pneumonia. Received doxycycline IV, and supplemental O2 which was weaned off > 12hrs prior to discharge. Repeat CXR was unchanged prior to discharge home with an additional 8 day course of doxycycline. Fall/Trauma on Coumadin - Initial and repeat head CT negative - no acute IC pathology - C-spine CT - no fracture, or traumatic subluxation - nonfocal findings on neuro exam - received Flexeril 5mg and morphine 8mg once for pain - Received Tylenol 650mg Q4H PRN for pain B/l Pneumonia based on CT with unimpressive clinical picture except low O2 sat and weakness leading to fall - CT chest - multifocal ground glass opacities consistent with multifocal pneumonia vs. pulmonary contusions which is less likely - f/u in 3 months to ensure resolved - Supplemental O2 for Sat > 92% - weaned off prior to discharge - Received Doxycycline 100mg IV BID given QT borderline for atypical coverage; levofloxacin avoided given recent orthopedic injury - discharged with remaining 8.5 day course of doxycycline 100mg BID to complete 10 day treatment course Combined CHF - Remained Euvolemic - Continued Lasix 20mg daily - Continued Lisinopril 40mg daily PAD - Remained sinus - Continued Amiodarone 200mg BID - Continued Coumadin IR - therapeutic today 2.7 HTN - Continued Lisinopril 40mg daily - Continued Norvac 5mg daily CAD - no evidence of ACS - continued Simvastatin 80mg QPM CLL - baseline WBC is in the 20s - WBC 24.6 initially downtrended to 16.8 Full code DVT Prophylaxis: Coumadin Total Time Spent: Less than 30 minutes This includes examination of the patient, discharge planning, medication reconciliation, and communication with other providers. Discharge Instructions Please refer to the electronic Patient Visit Report (Discharge Instructions) for additional information. Additional Copies To Mary Jane Cruz D.O. Assessment/Plan Resident Physician Supervision Note: I was present with Dr. Goddard during the history and exam. I discussed the case with the resident and agree with the findings and plan as documented in the note. Any exceptions or clarifications are listed here: Pt resting comfortably in bed on examination without overt pain in the head/neck. Neurological examination without atypical findings at present. Lungs are CTAB - would complete course of treatment for doxycycline and follow closely with primary care physician.
== END 2018-01-07 13:39 | disposition home or self-care (01) | DRG 913 ==
LOC: C.EDB 14:48 → C.4E 20:21 → ENRESERV 20:45
PROVIDERS: ADMIT Internal Medicine; ATTEND Family Medicine
DX: S09.90XA Unspecified injury of head, initial encounter (principal); J18.9 Pneumonia, unspecified organism; I50.40 Unspecified combined systolic (congestive) and diastolic (congestive) heart failure; C91.90 Lymphoid leukemia, unspecified not having achieved remission; S20.221A Contusion of right back wall of thorax, initial encounter; S20.222A Contusion of left back wall of thorax, initial encounter; W17.89XA Other fall from one level to another, initial encounter; S82.892D Other fracture of left lower leg, subsequent encounter for closed fracture with routine healing; X58.XXXD Exposure to other specified factors, subsequent encounter; I48.0 Paroxysmal atrial fibrillation; I11.0 Hypertensive heart disease with heart failure; I73.9 Peripheral vascular disease, unspecified; I25.10 Atherosclerotic heart disease of native coronary artery without angina pectoris; E78.5 Hyperlipidemia, unspecified; K21.9 Gastro-esophageal reflux disease without esophagitis; F32.9 Major depressive disorder, single episode, unspecified; E66.9 Obesity, unspecified; Z68.35 Body mass index [BMI] 35.0-35.9, adult; Y92.008 Other place in unspecified non-institutional (private) residence as the place of occurrence of the external cause; Z86.73 Personal history of transient ischemic attack (TIA), and cerebral infarction without residual deficits; I25.2 Old myocardial infarction; Z87.891 Personal history of nicotine dependence; Z79.01 Long term (current) use of anticoagulants; Z79.899 Other long term (current) drug therapy; Z88.0 Allergy status to penicillin; Z88.2 Allergy status to sulfonamides; Z82.49 Family history of ischemic heart disease and other diseases of the circulatory system; Z83.3 Family history of diabetes mellitus; Z82.3 Family history of stroke

== ENCOUNTER 2019-05-12 18:00 | Inpatient (IN) ==
[2019-05-12] MEDS ORDERED: NITROGLYCERIN SL 0.4 MG/TAB TAB SL PRN (20:39)
[2019-05-12] MEDS ORDERED: LORazepam 1 MG TAB PO PRN (20:39)
[2019-05-12] MEDS ORDERED: ALBUTEROL HFA 8 GM INHALER INH PRN (20:39)
[2019-05-12] MEDS ORDERED: ACETAMINOPHEN 325 MG TAB PO PRN (20:39)
--- NOTE | 2019-05-12 20:40 | History & Physical Report ---
Date of Service May 12, 2019 Assessment & Plan (1) Acute respiratory failure: Admit to ICU, telemetry Vital signs per ICU team BiPAP as needed Lasix drip Continue heparin drip started a [place] [facility] Hold warfarin CBC, CMP every 6, troponin every 6--> trend down troponins, , EKG every 6, BMP, blood cultures, PTT Consult family helper Consult cardiology Dr. Robison Keep n.p.o. except for ice chips and sips Replenish potassium as needed Duo nebs every 4 as needed ABGs Continue ceftriaxone 2 g IV daily (premedicate with Benadryl 25 IV to prevent allergic reaction)And doxycycline 100 mg IV twice daily Solu-Medrol 40 IV twice daily Aspirin 381 Full code Present on Admission?: Yes (2) CHF exacerbation: Continue home medicine carvedilol 25 mg p.o. twice daily hold if blood pressure less than 120/80 and if heart rate less than 60. Continue amiodarone 200 mg p.o. every morning Continue telmisartan 160 mg p.o. every morning, hold if blood pressure less than 120/80 Present on Admission?: Yes (3) Pneumonia: Duo nebs every 4 as needed Solu-Medrol 40 twice daily IV Breo Ellipta twice daily Ceftriaxone 2 g IV, doxycycline 100 mg IV twice daily Follow-up blood cultures Follow sputum cultures Lactic acidosis- repeat lactic acid ABGs BiPAP as needed Present on Admission?: Yes (4) Dyslipidemia: Continue atorvastatin 80 mg p.o. daily. Check lipid panel in a.m. Present on Admission?: Yes (5) Hypertension: As the above, hold home agents if blood pressure was 120/80 Present on Admission?: Yes History of Present Illness Chief Complaint: Shortness of breath Primary Care Provider: Mary Jane Cruz DO Patient is a 73 years old female with past medical history of hypertension, dyslipidemia, coronary artery disease ,congestive heart failure, COPD, GERD, dep ression, migraine headache who was directly admitted transferred from the emergency room at [facility] to [facility] ICU, for elevated troponin of 0.95, shortness of breath and needs to use BiPAP, lactic acidosis with lactic acid of 3.7, elevated white blood cell count 38,700. Inderal came in the ER EKG showed sinus rhythm 90 bpm. There is nonspecific anterior ventricular conduction delay. Poor R wave progression across the precordial leads suggestive of old anterior wall IN. Diffuse ST segment depression seen in lateral precordial and inferior leads abnormal tracing compared to previous tracing on April 22, 2019. ST segment depression is new. EKG repeated 2 hours later again showed normal sinus rhythm and rate of 67. Sinus rhythm with occasional PACs. Nonspecific ventricular conduction delay. Previously seen ST segment depression in a.m. and lateral inferior leads is now resolved. Abnormal tracing improved from tracing performed earlier today. Chest x-ray showed diffuse cephalization of pulmonary vessels. There is a right lower lobe infiltrate and possible left lower lobe infiltrate suggesting pneumonia. Cardiomegaly and extensive interstitial edema has developed since previous exam 07/01. Urine analysis negative. At [facility] ER patient was given aspirin 81 mg p.o., IV bolus 500 mils over 30 minutes, nitroglycerin paste 1 inch, Lopressor 2.5 mg IV, albuterol 10 mg neb, Lasix 40 mg IV, another normal saline bolus of thousand, Rocephin 1 g, another bolus of normal saline 500 mils, vancomycin 1 g, heparin 4000 units IVP, albuterol Atrovent dose, heparin drip 12 units/mg/kg, potassium chloride 40 mg p.o. patient needed to be on BiPAP which improved her breathing and when she left [place] when ER she was on 4 L of nasal cannula oxygen. On physical exam patient denies fever chills, headache, reports some congestion in her chest but denies chest pain, denies abdominal pain frequency urgency hematuria hemoptysis melena. Patient speaks in full voice she is alert and oriented x3. Patient arrived in critical condition and accepted to the intensive care unit for further evaluation and treatment. Allergies Allergy/AdvReac Type Severity Reaction Status Date / Time bee venom protein (honey bee) Allergy Severe Anaphylaxis Verified 05/11/19 12:26 Penicillins Allergy Mild Rash Verified 05/11/19 12:26 Sulfa (Sulfonamide Allergy Mild Rash Verified 05/11/19 12:26 Antibiotics) Home Medications Home Medications Medication Instructions Recorded Confirmed Type albuterol sulfate 1 puff INHALATION Q6H PRN 03/10/19 05/11/19 History amiodarone 200 mg PO QAM 03/10/19 05/11/19 History atorvastatin [Lipitor] 80 mg PO HS 03/10/19 05/11/19 History citalopram 10 mg PO QAM 03/10/19 05/11/19 History metformin 500 mg PO QAM 03/10/19 05/11/19 History potassium chloride 10 meq PO BID 03/10/19 05/11/19 History telmisartan 160 mg PO QAM 03/10/19 05/11/19 History torsemide 20 mg PO QAM 03/10/19 05/11/19 History warfarin [Coumadin] 2.5 mg PO QPM 03/10/19 05/11/19 History Past Med/Surg History Medical History Anxiety Asthma inhaler daily/prn Atrial fibrillation Depression Diabetes mellitus, type 2 Hearing deficit History of colon polyps Hyperlipidemia Hypertension Leukemia just monitoring Myocardial Infarction 2010 Nausea and vomiting after administration of anesthetic agent On anticoagulant therapy coumadin daily Osteoarthritis Spinal stenosis Stroke x3 ?----no neurologist, left arm weakness, uses cane to ambulate Surgical History History of bilateral breast reduction surgery History of colonoscopy History of dilatation and curettage x3 History of laparoscopy History of phacoemulsification of cataract of both eyes with intraocular lens implantation History of right breast biopsy x3--benign History of total left knee replacement (TKR) Family History Mother Family history of diabetes mellitus Family/Other Family history of diabetes mellitus cousin Other No family history of adverse response to anesthesia Social History Preferred Language: Mexican Communication Ability: Effective Optimization Engineer Required: No Beliefs That Will Affect Care: None Current Living Situation: Spouse Other Information That Helps Us Care for You: No Feels Safe at Home: Yes Safety Concerns: Feels Safe At This Time Smoking Status: Current some day smoker Second Hand Exposure: No ; Tobacco Cessation Education Requested by Patient: No Hx Alcohol Use: Yes Alcohol type: wine Hx Substance Use: No Review of Systems Review of Systems: All systems reviewed & are unremarkable except as noted in HPI & below Physical Exam Constitutional: WD/WN, vitals as above well developed, + ill appearing and + obese Eyes: PERRL, conjunctivae normal, anicteric sclerae ENMT: external ear and nose normal, oropharynx normal Neck: trachea midline, no thyromegaly Respiratory: + respiratory distress, + dullness to percussion, + cough, able to speak in complete sentences and + prolonged expiratory phase Auscultation: + crackles and + wheezes Cardiovascular: Heart Sounds: normal S1, normal S2 and + murmur Palpation: + palpable S3 Vessels: + JVD Extremities: normal capillary refill and + edema (1+ bilateral edema lower extremities nonpitting) Chest (Breasts): normal inspection/palpation of breasts Gastrointestinal (Abdomen): normal bowel sounds, soft, nontender, no hepatosplenomegaly Musculoskeletal: no cyanosis or clubbing, extremities motor strength 5/5 Skin: + dry skin Neurologic: patellar DTR's 2+ bilat, sensation intact Psychiatric: A+Ox3, euthymic affect Genitourinary: no vaginal lesions, no adnexal mass Lymphatic: no cervical or axillary lymphadenopathy Code Status & VTE Plan Code Status Full code VTE Prophylaxis Plan VTE Prophylaxis will be ordered: Yes PG Care Time/CCT Total # of Minutes Spent Total Time Spent with Patient: Total time spent is greater than 50% in coordination of care (as documented) at patient's floor/unit and/or counseling patient:
[2019-05-12] MEDS ORDERED: ALBUT/IPRATROP 3MG/0.5MG NEB 3 ML VIAL NEB PRN (20:58)
[2019-05-12] MEDS ORDERED: CARVEDILOL 25 MG TAB PO SCH (21:00)
[2019-05-12] MEDS ORDERED: GLUCOSE 40% GEL 15 GM TUBE PO PRN (21:07)
[2019-05-12] MEDS ORDERED: DC ALL PREVIOUSLY ORDERED DIABETES MEDS ONE (21:07)
[2019-05-12] MEDS ORDERED: GLUCOSE 10 TABS/TUBE PO PRN (21:07)
[2019-05-12] MEDS ORDERED: DEXTROSE 50% 50 ML SYRINGE IV PRN (21:07)
[2019-05-12] MEDS ORDERED: CARBOHYDRATES FOR HYPOGLYCEMIA PO PRN (21:07)
[2019-05-12] MEDS ORDERED: GLUCAGON FOR INJ 1 MG VIAL SQ PRN (21:07)
[2019-05-12] MEDS ORDERED: PHARMACY GLYCEMIC MGMT CONSULT PRN (21:13)
[2019-05-12 21:18] LABS: Hematocrit (blood only) 34.9 % (37-47); Hemoglobin 11.3 g/dL (12.0-16.0); Mean Corpuscular Hemoglobin 32.9 pg (25-34); Mean Corpuscular Hgb Conc 32.4 g/dL (32-36); Mean Corpuscular Volume 101.7 fL (80-100); Mean Platelet Volume 9.8 fL (7.4-10.4); Platelet Count 237 K/uL (130-400); RDW Coefficient of Variation 14.5 % (11.5-14.5); RDW Standard Deviation 53.3 fL (36.4-46.3); Red Blood Count 3.43 M/uL (4.2-5.4); White Blood Count 29.01 K/uL (4.8-10.8)
[2019-05-12] MEDS ORDERED: FUROSEMIDE 100 MG in DEXTROSE 5% 90 ML IV SCH (21:30)
[2019-05-12] MEDS: HEPARIN SODIUM/DEXTROSE 25,000 UNITS/500 ML BAG IV SCH (21:30)
[2019-05-12] MEDS: DOXYCYCLINE HYCLATE 100 MG CAP PO SCH (21:31)
[2019-05-12] MEDS: ATORVASTATIN 40 MG TAB PO SCH (21:31)
[2019-05-12 21:37] LABS: Albumin Level 3.2 gm/dl (3.4-5.0); BUN Creatinine Ratio 20.5 (10-20); Calcium 8.9 mg/dl (8.5-10.1); Creatinine Clr Calc Pharmacy 62.1 ml/min; Est GFR (African American) 69.7; Est GFR (Non-African American) 60.1; Potassium 3.9 mmol/L (3.5-5.1)
[2019-05-12 21:47] LABS: Albumin Globulin Ratio 0.9 (0.9-2); Bilirubin,Total 0.8 mg/dl (0.2-1); Globulin 3.5 gm/dl (2.5-4.0); Total Protein 6.7 gm/dl (6.4-8.2); Troponin I 5.03 ng/ml (0-0.045)
[2019-05-12] MEDS: methylPREDNISolone 30 MG in SYRINGE 0 ML IV SCH (21:52)
[2019-05-12] MEDS: INSULIN ASPART 100 UNITS/ML 3 ML PEN SC SCH (21:54)
[2019-05-12 21:57] LABS: Basophils # (auto) 0.02 K/uL (0-0.2); Basophils % (auto) 0.1 %; Immature Granulocytes % (auto) 0.3 %; Lymphocytes % (auto) 54.1 %; Monocytes # (auto) 0.21 K/uL (0.11-0.59); Monocytes % (auto) 0.7 %; Neutrophils # (auto) 12.98 K/uL (1.4-6.5); Neutrophils % (auto) 44.8 %
[2019-05-12 22:37] LABS: Partial Thromboplastin Ratio 1.3; Partial Thromboplastin Time 34.9 Seconds (21.0-31.0)
[2019-05-12 22:47] LABS: iSTAT Allen Test Pass; iSTAT Art Bld Gas pCO2 Correct 35 mmHg (35-46); iSTAT Art Bld Gas pH Corrected 7.411 (7.35-7.45); iSTAT Arterial Blood Gas HCO3 22 meg/L (19-24); iSTAT Arterial Blood Gas pCO2 35 mmHg (35-46); iSTAT Arterial Blood Gas pH 7.41 (7.35-7.45); iSTAT Arterial Blood Gas pO2 95 mmHg (80-95); iSTAT Arterial Blood Gas pO2 C 94; iSTAT Carbon Dioxide 23 mEq/l (24-31); iSTAT FiO2 40 %; iSTAT Site L Radial
[2019-05-12] MEDS ORDERED: HEPARIN IV BOLUS 6,000 UNITS in SYRINGE 0 ML IV ONE (23:15)
[2019-05-13] MEDS ORDERED: ASPIRIN 81 MG CHEW PO STA (00:12)
[2019-05-13] MEDS: INSULIN ASPART 100 UNITS/ML 3 ML PEN SC SCH ×6 (01:10→20:17)
[2019-05-13 03:19] LABS: Calcium 8.2 mg/dl (8.5-10.1); Creatinine Clr Calc Pharmacy 68.7 ml/min; Est GFR (African American) 78.8; Potassium 3.6 mmol/L (3.5-5.1)
[2019-05-13 03:26] LABS: Bilirubin,Total 0.7 mg/dl (0.2-1); Globulin 2.9 gm/dl (2.5-4.0); Total Protein 5.9 gm/dl (6.4-8.2); Troponin I 6.46 ng/ml (0-0.045)
[2019-05-13 04:44] LABS: Hematocrit (blood only) 31.8 % (37-47); Hemoglobin 10.4 g/dL (12.0-16.0); Mean Corpuscular Hemoglobin 32.9 pg (25-34); Mean Corpuscular Hgb Conc 32.7 g/dL (32-36); Mean Corpuscular Volume 100.6 fL (80-100); Mean Platelet Volume 9.9 fL (7.4-10.4); Platelet Count 206 K/uL (130-400); RDW Coefficient of Variation 14.3 % (11.5-14.5); RDW Standard Deviation 52.4 fL (36.4-46.3); Red Blood Count 3.16 M/uL (4.2-5.4); White Blood Count 29.26 K/uL (4.8-10.8)
[2019-05-13 06:08] LABS: INR 1.5 (0.9-1.1); Prothrombin Time 14.5 Seconds (9.0-12.0)
[2019-05-13 06:15] LABS: Partial Thromboplastin Ratio > 5.1
[2019-05-13 06:16] LABS: Partial Thromboplastin Time > 139.0 Seconds (21.0-31.0)
[2019-05-13 06:29] LABS: Basophils # (auto) 0.01 K/uL (0-0.2); Immature Granulocytes % (auto) 0.3 %; Lymphocytes # (auto) 15.27 K/uL (1.2-3.4); Lymphocytes % (auto) 52.2 %; Monocytes # (auto) 0.38 K/uL (0.11-0.59); Monocytes % (auto) 1.3 %; Neutrophils % (auto) 46.2 %
[2019-05-13 07:00] LABS: Estimated Average Glucose 120 mg/dl; Hemoglobin A1C 5.8 % (4.5-5.6)
--- NOTE | 2019-05-13 07:09 | XRay Report ---
XR chest 1V portable CLINICAL HISTORY: 73 years-old Female presenting with PNA, AHRF. TECHNIQUE: Portable upright AP view of the chest was obtained. COMPARISON: 01/07/2018. FINDINGS: Atherosclerosis of the aortic arch. Cardiac silhouette enlarged. Pulmonary vascular prominence and in terlobular septal thickening. Lungs may be hyperinflated. Added density of the lungs primarily in the mid to lower zones right greater than left. Trace right pleural effusion may be present. No large pn eumothorax. Degenerative changes of the left glenohumeral joint. Upper abdomen normal. IMPRESSION: 1. Cardiomegaly with volume overload, congestive change, and mild pulmonary edema. 2. Slight asymmetry of infiltrates greater in the right lung makes exclusion of an underlying pneumo lisa difficult. PA and lateral views are recommended for better assessment. Electronically signed by: Aaron Mooney M.D. 05/13/2019 7:08 AM
[2019-05-13 07:50] LABS: Partial Thromboplastin Ratio > 5.1
[2019-05-13 07:53] LABS: Partial Thromboplastin Time > 139.0 Seconds (21.0-31.0)
[2019-05-13] MEDS: DiphenhydrAMINE HCL 50 MG/ML VIAL IV SCH (08:16)
[2019-05-13] MEDS: CITALOPRAM 20 MG TAB PO SCH (08:30)
[2019-05-13] MEDS: CARVEDILOL 25 MG TAB PO SCH ×2 (08:30→20:16)
[2019-05-13] MEDS: DOXYCYCLINE HYCLATE 100 MG CAP PO SCH ×2 (08:30→20:16)
[2019-05-13] MEDS: AMIODARONE 200 MG TAB PO SCH (08:30)
--- NOTE | 2019-05-13 08:35 | Critical Care Consultation ---
Date of Consultation May 13, 2019 Assessment & Plan (1) Acute respiratory failure with hypoxia: Reason Critically Ill: Kaylie is a 73-year-old female with a past medical history of hypertension, Afib on Amiodarone and warfarin, T2DM, CHF, COPD, GERD, CLL, migraine, and depression who presented to [facility] with acute hypoxic respiratory failure secondary to right lower lobe pneumonia and he was transferred to [facility] for an increased level of care. Neuro - [facility] ICU: Negative Depression Continue citalopram 20 mg p.o. daily Analgesia: Pain well controlled at this time Cardiac - Type II myocardial infarction She has a history of congestive heart failure was found to have a elevated BNP on admission Reportedly with ST depressions in leads II, III, aVF on admission to [facility] which resolved with BiPAP and nebulizer treatments Troponin increased to 5.0 on admission, up trended to 6.4 overnight with repeat pending. Heparin GTT - Cardiology consulted Acute on chronic congestive heart failure - BNP 18K on admit Continue Lasix diuresis with 100 mg IV every 24 hours, holding torsemide at this time Continue GEOLOGY TECHNICIAN telmisartan Cardiology consulted as above. Atrial fibrillation Rate and rhythm adequately controlled at time of visit Continue amiodarone 200 mg p.o. every morning Continue carvedilol 6.25 mg p.o. 3 times daily GEOLOGY TECHNICIAN warfarin held in the setting of heparin GTT Respiratory - Acute hypoxic respiratory failure 2/2 right lower lobe pneumonia and acute on chronic CHF Sputum sent for culture Chest x-ray shows cardiomegaly with volume overload, congestive change in pulmonary edema, and a greater density of infiltrates on the right lower compared to the left lower lung ABG on admit with pH 7.4, CO2 35, O2 95, HCO3 22 Continue Lasix diuresis On revisit has weaned from BiPAP to nasal cannula and is tolerating well without increased work of breathing or hypoxia History of COPD Continue oxygen support as above Albuterol nebulizer every 4 hours as needed Adequate bedside swallow Started clear liquid diet, advance diet as tolerated RENAL/LYTES - Creatinine normal, no sodium or potassium derangements BMP daily Replace electrolyte as indicated by ICU protocol - No concerns at this time. ENDO - Type 2 diabetes mellitus Hold GEOLOGY TECHNICIAN metformin ICU hyperglycemia protocol HEME - CLL Stable, in remission per patient. She reports she has never been on a chemotherapeutic agent. Leukocytosis to 29.26 today. Difficult to interpret this as background CLL versus in the setting of acute pneumonia, however she is responding well to antibiotic therapy and respiratory support as above. Macrocytic anemia Hemoglobin stable 10.4 Recommend folate/B12 levels and supplementation Clinically stable at this time ID - Right lower lobe pneumonia On Rocephin 2 g IV every 24 hours plus doxycycline 100 mg p.o. twice daily Continue antibiotics above for total course of 7 days Added one-time additional loading dose of doxycycline 100 mg p.o. Continue to trend fever curve INTEGUMENTARY - No acute concerns LINES/IV ACCESS - PIVs intact. DVT PROPHYLAXIS - Heparin GTT as above CODE STATUS: Full code Thank you for allowing us to be part of this patient's care. Please refer to Dr. Ford's documentation for any further recommendations. (2) Acute respiratory failure: (3) Pneumonia: (4) CHF exacerbation: (5) Dyslipidemia: (6) GERD (gastroesophageal reflux disease): (7) Hypoxia: (8) Hypertension: (9) Depression: (10) Admitted to intensive care unit: Supervising Physician Co-Signing Physician Notes Dr. Santillan was resident physician during care of patient. I separately evaluated patient for martin portions of the history and the exam. I was present during the critical portion of medical decision making, and I discussed the case with the resident. I generally agree with the findings and plan. Patient improved from reported condition at admission. Continued aggressive diuresis, Continue antibiotics for possible community-acquired pneumonia, there is not appear to be aspects of sepsis at this time procalcitonin not profoundly elevated I think this is cardiogenic in origin.Supplemental potassium given aggressive diuresis.Patient does not have oxygen requirement at baseline.Repeat echocardiogram ordered, proceeding with doxycycline for atypical coverage as patient's QTC is greater than 500. Patient reports that she feels she took extra fluid for a colonoscopy prep however she also admits to adding salt to some foods such as eggs and she does eat soups, for several days she felt increasing swelling in her ankle which was previously injured. She started wearing her 's oxygen, she is not prescribed oxygen as well as using his nebulizer. I advised that is not the best thing to do and it is better to call the office immediately when she feels short of breath as this likely decreased her functional reserve. Patient is stable for downgrade out of the ICU. History of Present Illness Reason for Consultation: Sepsis, lactic acidosis, NSTEMI, CHF Requesting Physician: Christen Christian MD Attending Physician: Christen Christian MD History of Present Illness Kaylie Castro is a 73-year-old female with a past medical history of CLL in remission and never on chemotherapy per patient, CHF, COPD not on home oxygen, GERD, depression, migraine who presented to [facility] emergency department with severe shortness of breath limiting her ability to speak. At [facility] her O2 sats were found to be in the 70s and improved with DuoNeb, methylprednisolone, and BiPAP 18/8. Her chest x-ray showed right lower lung pneumonia, she is noted to have an increased BNP, and EKG showed ST depressions in 2, 3, aVF with a troponin of 0.95. She had a endoscopy at our facility 2 days ago. She had no creatinine elevation and no history of kidney disease. She is found to have a lactic acid of 3.7 and a white blood cell count of 38,000 in the setting of CLL. Following BiPAP and DuoNeb treatments at [facility] her EKG changes and ST depressions resolved prior to time of transfer. She received aspirin 81 mg, IV fluid boluses totaling 2 L crystalloid, vancomycin, heparin IV push followed by heparin drip, potassium supplementation, and DuoNeb/albuterol as noted above she is able to be weaned to 4 L nasal cannula around time of transfer. On exam this morning patient is resting comfortably in bed breathing on BiPAP 18/8 with O2 sats greater than 95%. She reports she feels "a ton "better than when she arrived yesterday. She reports she could barely speak, and felt func tionally at approximately 50% when she arrived to [facility]. This morning she says she feels close to 100% of her normal healthy baseline. She denies chest pain, chest pressure, lightheadedness, dizziness, fatigue, nausea, abdominal pain, diarrhea, constipation, palpitations, lightheadedness, dizziness. She endorses a feeling of phlegm in her throat and a cough productive for white/yellow sputum. She is hungry this morning. She endorses chronic back, and right knee pain at her normal baseline today. Tolerable to her at this time. She reports that she has CLL, but has never been on chemotherapy. She has been told by her oncologist she is in remission, and has a follow-up appointment next month. She is aware that her white blood cell count is normally high at baseline. Social history: Former social smoker, no consistent use but was around heavy smokers with secondhand smoke frequently. No recent tobacco use. Occasional drinker, wine a few times a month not regularly no more than 1-2 and a setting. 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 Reports she is occasionally limited move around the house by right knee pain and arthritis, but has not passed out or had cardiac symptoms. Family history: She reports an extensive family history of coronary artery disease and stroke. She reports her father had heart surgery, and ID. She reports her mother had a stroke and had carotid surgery. Denies family history of diabetes. Allergies Allergy/AdvReac Type Severity Reaction Status Date / Time bee venom protein (honey bee) Allergy Severe Anaphylaxis Verified 05/11/19 12:26 Penicillins Allergy Mild Rash Verified 05/11/19 12:26 Sulfa (Sulfonamide Allergy Mild Rash Verified 05/11/19 12:26 Antibiotics) Home Medications Home Medications Medication Instructions Recorded Confirmed Type albuterol sulfate 1 puff INHALATION Q6H PRN 03/10/19 05/12/19 History amiodarone 200 mg PO QAM 03/10/19 05/12/19 History atorvastatin [Lipitor] 80 mg PO HS 03/10/19 05/12/19 History potassium chloride 10 meq PO BID 03/10/19 05/12/19 History telmisartan 80 mg PO QAM 03/10/19 05/12/19 History torsemide 20 mg PO QAM 03/10/19 05/12/19 History Breo Ellipta 1 inh INHALATION DAILY 05/12/19 05/12/19 History carvedilol 6.25 mg PO TID 05/12/19 05/12/19 History citalopram 20 mg PO DAILY 05/12/19 05/12/19 History fluticasone propionate 1 spray INTRANASAL DAILY 05/12/19 05/12/19 History lorazepam 0.5 mg BUCCAL BID PRN 05/12/19 05/12/19 History metformin 500 mg PO QAM 05/12/19 05/12/19 History warfarin [Jantoven] 2.5 mg PO DAILY 05/12/19 05/12/19 History Patient History Medical History Anxiety Asthma inhaler daily/prn Atrial fibrillation Depression Diabetes mellitus, type 2 Hearing deficit History of colon polyps Hyperlipidemia Hypertension Leukemia just monitoring Myocardial Infarction 2010 Nausea and vomiting after administration of anesthetic agent On anticoagulant therapy coumadin daily Osteoarthritis Spinal stenosis Stroke x3 ?----no neurologist, left arm weakness, uses cane to ambulate Surgical History History of bilateral breast reduction surgery History of colonoscopy History of dilatation and curettage x3 History of laparoscopy History of phacoemulsification of cataract of both eyes with intraocular lens implantation History of right breast biopsy x3--benign History of total left knee replacement (TKR) Family History Mother Family history of diabetes mellitus Family/Other Family history of diabetes mellitus cousin Other No family history of adverse response to anesthesia Social History Preferred Language: Serbian Communication Ability: Effective Sports Internship Required: No Beliefs That Will Affect Care: None Current Living Situation: Spouse Other Information That Helps Us Care for You: No Feels Safe at Home: Yes Safety Concerns: Feels Safe At This Time Smoking Status: Current some day smoker Second Hand Exposure: No ; Tobacco Cessation Education Requested by Patient: No Hx Alcohol Use: Yes Alcohol type: wine Hx Substance Use: No Review of Systems Review of Systems: Constitutional: Denies fever, chills, malaise this morning Eyes: Denies double vision, vision change, eye pain ENT: Denies ear pain, sore throat, sinus pain Cardiovascular: Denies Chest pain, chest pressure, palpitations, extremity swelling Respiratory: Denies shortness of breath, difficulty breathing. Endorses cough with clear/white/light yellow mucus production. Gastrointestinal: Denies abdominal pain, nausea, vomiting, constipation, diarrhea this morning Genitourinary: Denies pain with urination, urinary urgency, urinary frequency Musculoskeletal: Denies weakness. Endorses chronic low back pain and right knee pain at baseline. Otherwise denies pain. Integumentary:Denies rash, lesions, bruising Neurological: Denies headache, numbness, tingling, focal weakness Physical Exam Physical Exam: General: A&Ox3. NAD. Cooperative. On BiPAP at time of visit, on recheck has been converted to 4 L nasal cannula and is breathing comfortably. No respiratory distress. HEENT: Atraumatic, normocephalic. Mucous membranes moist. Pulm: Bilateral rales, right greater than the left and dependent lobes. Upper lung mustafa clear. Symmetrical chest rise. No increased work of breathing. No respiratory distress. Cardiac: RRR, -mrg. Radial pulses intact and symmetrical. Abdominal: Nontender, nondistended, soft. BS present. Extremities: Warm, dry. Radial and PT pulses intact and symmetrical bilatera lly. Physician Specialist strength, finger flexion/extension, elbow flexion/extension, shoulder internal rotation/external rotation, hip flexion, ankle dorsiflexion/plantar flexion 5 out of 5 with mild knee and back discomfort on right knee flexion and hip flexion. Sensation intact in all extremities without deficit or asymmetry. Results & Data Vital Signs (Past 12 Hours) Vital Signs Temp Pulse Resp BP BP Pulse Ox 05/13/19 05:30 59 L 20 95 05/13/19 05:00 59 L 16 139/71 95 05/13/19 04:53 58 L 16 145/76 H 95 05/13/19 04:30 64 17 98 05/13/19 04:00 37.8 C H 61 16 148/74 H 95 05/13/19 03:30 58 L 22 141/70 H 95 05/13/19 03:00 61 17 163/93 H 98 05/13/19 02:30 60 19 149/77 H 96 05/13/19 02:00 61 17 143/77 H 96 05/13/19 01:30 60 19 157/87 H 97 05/13/19 01:00 65 21 119/97 98 05/13/19 00:30 36.8 C 60 15 147/73 H 95 05/13/19 00:00 61 16 140/73 95 05/12/19 23:30 63 18 157/89 H 98 05/12/19 23:00 64 18 161/100 H 96 05/12/19 22:47 68 16 99 05/12/19 22:24 71 05/12/19 22:00 71 24 161/90 H 96 05/12/19 21:30 70 20 160/89 H 97 05/12/19 21:23 71 20 163/87 H 97 05/12/19 21:00 72 98 05/12/19 20:50 72 18 98 05/12/19 20:40 74 17 97 05/12/19 20:38 71 21 98 05/12/19 20:35 36.8 C 22 163/87 H 98 05/12/19 20:30 37.3 C 69 18 163/87 H 98 05/12/19 20:25 74 18 98 PG Care Time/CCT Total # of Minutes Spent Total Time Spent with Patient: Total time spent is greater than 50% in coordination of care (as documented) at patient's floor/unit and/or counseling patient: Resident Activity Tracking Resident Involvement: Resident Care Provided Care Provided: Adult Hospital Medicine
[2019-05-13] MEDS: TELMISARTAN 40 MG TAB PO SCH (08:36)
[2019-05-13] MEDS ORDERED: cefTRIAXone SODIUM 2,000 MG in DEXTROSE 5% 50 ML IV SCH (09:00)
[2019-05-13] MEDS ORDERED: POTASSIUM CHLORIDE 20 MEQ TABCR PO SCH (09:00)
[2019-05-13 09:10] LABS: Partial Thromboplastin Ratio 3.5
[2019-05-13 09:13] LABS: Partial Thromboplastin Time 94.2 Seconds (21.0-31.0)
[2019-05-13] MEDS ORDERED: DOXYCYCLINE HYCLATE 100 MG CAP PO STA (09:22)
[2019-05-13] MEDS: FUROSEMIDE 100 MG in DEXTROSE 5% 90 ML IV SCH ×2 (10:09→16:48)
[2019-05-13] MEDS: methylPREDNISolone 30 MG in SYRINGE 0 ML IV SCH ×2 (10:09→22:09)
[2019-05-13] MEDS ORDERED: DICLOFENAC SOD 1% GEL 100 GM TUBE EXT PRN (10:19)
--- NOTE | 2019-05-13 10:41 | Pharmacy Report ---
Glycemic Control Consultation - Date of Service May 13, 2019 - Scope Scope: Glycemic Pharmacist consulted by Dr Christian on 05/12/19 for glycemic control and to write orders per [facility] inpatient glycemic control protocol - Objective Weight: 106 kg Accuchecks BSG (last 24hrs): 05/12/19 05/12/19 05/13/19 21:08 21:20 01:00 Glucose 186 H POC Glucose 187 H 192 H 05/13/19 05/13/19 05/13/19 02:51 04:14 07:48 Glucose 180 H POC Glucose 176 H 168 H Laboratory Data (last 24hrs): 05/12/19 05/13/19 21:08 02:51 Potassium 3.9 3.6 Carbon Dioxide 27 25 Anion Gap 5.0 8.0 Creatinine 0.93 0.84 Est Cr Clr Drug Dosing 62.1 68.7 HbA1c: Hemoglobin A1c 5.8 % (4.5-5.6) H 05/13/19 04:30 - Recent Pertinent Medications Outpatient Anti-diabetic Regimen: * metformin 500 mg po qAM * A1c = 5.8 % 05/13/19 The patient is currently receiving: * Basal insulin: none * Correctional Insulin: Novolog Correction per scale ACHS Goal Range: Low 140 mg/dL - High 180 mg/dL Correction Factor: 15 mg/dL/unit * Prandial insulin: none * Oral Agents: on hold Risk Factors for Insulin Resistance: * Steroids: solu medrol 30 mg IV q12 * Infection: pneumonia -> doxycycline + ceftriaxone * IVF: heparin infusion, furosemide drip * Diet: clear liquids/T2DM - Assessment & Plan Assessment & Plan: ASSESSMENT: * Jere is a 73 yr old T2DM female admitted to the ICU for acute respiratory failure with hypoxia secondary to right lower lobe pneumonia * A1c indicates good outpatient glycemic control managed with metformin * BSG elevation is likely due to infection and administration of IV steroids * Pt had decent glycemic control overnight with an elevated fasting BSG. Low dose Lantus will be initiated today. * She was started on a clear liquid diet this morning, therefore a carb ratio will be added to her novolog. PLAN FOR INPATIENT GLYCEMIC CONTROL: * Holding outpatient oral diabetes medications * Basal insulin * Lantus per scale SQ BID * 0 units for BSG less than 140 mg/dL * 5 units for BSG 140 - 180 mg/dL * 10 units for BSG greater than 180 mg/dL * Bolus insulin * NovoLog per scale ACHS or Q6hrs while NPO * Goal Range: Low 120 mg/dL - High 160 mg/dL * Correction Factor: 25 mg/dL/unit * Nutritional / Prandial insulin per carb ratio of 1 unit per 12 grams CHO consumed * Please note that the plan above was derived based on current level of insulin resistance and hospital stress. These recommendations are appropriate for inpatient admission only. Plan of care upon discharge will need to be reassessed to avoid potential outpatient hypo/hyperglycemia. Thank you.
[2019-05-13] MEDS: INSULIN GLARGINE SOLOSTAR 100 UNITS/ML 3 ML PEN SC SCH ×2 (12:41→20:17)
[2019-05-13] MEDS: POTASSIUM CHLORIDE 10 MEQ TABCR PO SCH ×2 (13:40→20:16)
[2019-05-13] MEDS ORDERED: PERFLUTREN LIPID MICROSPHERE (DEFINITY) IV ONE (14:19)
[2019-05-13 15:43] LABS: Partial Thromboplastin Ratio 1.9
[2019-05-13 15:46] LABS: Partial Thromboplastin Time 50.6 Seconds (21.0-31.0)
[2019-05-13] MEDS: HEPARIN SODIUM/DEXTROSE 25,000 UNITS/500 ML BAG IV SCH (16:51)
--- NOTE | 2019-05-13 18:19 | Cardiology Consultation ---
Date of Consultation May 13, 2019 Assessment & Plan (1) NSTEMI (non-ST elevated myocardial infarction): Suspect the patient experienced iatrogenic hypervolemia which may have precipitated her non ST elevation UT. Would likely discontinue heparin tomorrow. Continue carvedilol and telmisartan. She may eventually require an implantable defibrillator. (2) Acute on chronic systolic (congestive) heart failure: The patient is responding well to intravenous diuretics. Continue carvedilol and telmisartan. (3) Ischemic cardiomyopathy: Unfortunately, her ejection fraction is now down to 30-35 percent. She has significant wall motion abnormalities. As above, she may eventually require an implantable defibrillator. (4) PAF (paroxysmal atrial fibrillation): It appears that her warfarin has been placed on hold. We could consider change to 1 of the newer agents. History of Present Illness Attending Physician: Tello Brooks History of Present Illness Mrs. Diaz is a 73-year-old female transferred from [facility] to our institution yesterday because of decompensated CHF and an elevated troponin level. Of note, patient is well known to me from the outpatient setting. Patient was in her usual state of health until last Wednesday. She started preparation for both an upper and lower endoscopy. She underwent her procedure on and received intravenous hydration. After returning home on following the procedure, the patient began to note some exertional dyspnea. She experience PND and orthopnea that evening, and then presented to [facility] emergency room on Wednesday. She was noted to be in decompensated CHF and her troponin was mildly elevated at 0.9. The patient was transferred to our institution for further care. On arrival here, the patient received diuretics and oxygen via a BiPAP mask. She improved rapidly.Her troponin increased to 7.99. The patient's cardiac history began in June 2011 when she suffered an anteroapical myocardial infarction. She developed an ischemic cardiomyopathy with an ejection fraction of 40%. Unfortunately, she has not been compliant with office visits. Currently, patient is resting comfortably in bed without complaints. Past medical and surgical history 1. Coronary artery disease 2. Anteroapical UT-June 2011 3. Ischemic cardiomyopathy-40 percent, anteroapical wall motion abnormality 4. Chronic systolic CHF 5. Hypertension 6. Hypercholesterolemia 7. Paroxysmal atrial fibrillation 8. cerebral artery occlusion Social history and lives with her No tobacco Social alcohol Family history Noncontributory Review of systems A 10 point review of systems was negative except for that described above. Allergies Allergy/AdvReac Type Severity Reaction Status Date / Time bee venom protein (honey bee) Allergy Severe Anaphylaxis Verified 05/11/19 12:26 Penicillins Allergy Mild Rash Verified 05/11/19 12:26 Sulfa (Sulfonamide Allergy Mild Rash Verified 05/11/19 12:26 Antibiotics) Home Medications Home Medications Medication Instructions Recorded Confirmed Type albuterol sulfate 1 puff INHALATION Q6H PRN 03/10/19 05/12/19 History amiodarone 200 mg PO QAM 03/10/19 05/12/19 History atorvastatin [Lipitor] 80 mg PO HS 03/10/19 05/12/19 History potassium chloride 10 meq PO BID 03/10/19 05/12/19 History telmisartan 80 mg PO QAM 03/10/19 05/12/19 History torsemide 20 mg PO QAM 03/10/19 05/12/19 History Breo Ellipta 1 inh INHALATION DAILY 05/12/19 05/12/19 History carvedilol 6.25 mg PO TID 05/12/19 05/12/19 History citalopram 20 mg PO DAILY 05/12/19 05/12/19 History fluticasone propionate 1 spray INTRANASAL DAILY 05/12/19 05/12/19 History lorazepam 0.5 mg BUCCAL BID PRN 05/12/19 05/12/19 History metformin 500 mg PO QAM 05/12/19 05/12/19 History warfarin [Jantoven] 2.5 mg PO DAILY 05/12/19 05/12/19 History Patient History Medical History Anxiety Asthma inhaler daily/prn Atrial fibrillation Depression Diabetes mellitus, type 2 Hearing deficit History of colon polyps Hyperlipidemia Hypertension Leukemia just monitoring Myocardial Infarction 2010 Nausea and vomiting after administration of anesthetic agent On anticoagulant therapy coumadin daily Osteoarthritis Spinal stenosis Stroke x3 ?----no neurologist, left arm weakness, uses cane to ambulate Surgical History History of bilateral breast reduction surgery History of colonoscopy History of dilatation and curettage x3 History of laparoscopy History of phacoemulsification of cataract of both eyes with intraocular lens implantation History of right breast biopsy x3--benign History of total left knee replacement (TKR) Family History Mother Family history of diabetes mellitus Family/Other Family history of diabetes mellitus cousin Other No family history of adverse response to anesthesia Social History Preferred Language: Irish Communication Ability: Effective Client Evaluator Required: No Beliefs That Will Affect Care: None Current Living Situation: Spouse Other Information That Helps Us Care for You: No Feels Safe at Home: Yes Safety Concerns: Feels Safe At This Time Smoking Status: Current some day smoker Second Hand Exposure: No ; Tobacco Cessation Education Requested by Patient: No Hx Alcohol Use: Yes Alcohol type: wine Hx Substance Use: No Physical Exam 2 Physical Exam: In general is well-developed well-nourished white female no acute distress. HEENT exam is negative. Neck is supple with full carotid upstrokes. No carotid bruits. Jugular is pressure is flat at 90 degrees. No thyromegaly. Cardiovascular exam reveals a regular rhythm with distant heart sounds. No obvious murmurs. No S3. Lungs no decreased breath sounds at the bases but no rales. Abdomen is obese without bruits. Extremities reveal intact radial artery pulses bilaterally. Trace pretibial edema is noted. Results & Data Vital Signs (Past 12 Hours) Vital Signs Temp Pulse Pulse Resp BP BP Pulse Ox 05/13/19 14:51 36.5 C 62 18 142/73 H 96 05/13/19 13:43 36.5 C 64 22 137/85 95 05/13/19 11:00 67 18 145/81 H 96 05/13/19 10:00 76 24 160/80 H 94 05/13/19 09:38 73 15 143/80 H 96 05/13/19 09:00 69 18 165/104 H 94 05/13/19 08:00 36.7 C 66 15 149/82 H 95 05/13/19 07:00 61 15 158/83 H 97 05/13/19 06:30 60 16 141/72 H 95 Laboratory Results CBC notes a hemoglobin of 10.4, crit 31.8, white count 29.26, platelet count of [id number].Noted sodium 143, potassium 3.6, chloride 110, bicarb 25, BUN 17, creatinine 0.84, and a glucose of 180. Troponin was 5.03 with follow-up values of 6.46, 6.5, and 7.99. Diagnostic Findings EKG notes normal sinus rhythm with a nonspecific ST and T-wave abnormality. Echocardiogram notes moderately reduced left ventricular systolic performance with ejection fraction of 30 35 percent. The apex is akinetic and aneurysmal. The inferior wall is akinetic. PG Care Time/CCT Total # of Minutes Spent Total Time Spent with Patient: Total time spent is greater than 50% in coordination of care (as documented) at patient's floor/unit and/or counseling patient:
[2019-05-13] MEDS: ATORVASTATIN 40 MG TAB PO SCH (20:16)
[2019-05-13] MEDS ORDERED: Nursing to Pharmacy Communication ONE (22:13)
--- NOTE | 2019-05-13 23:44 | Hospitalist Progress Note ---
Date of Service May 13, 2019 Assessment & Plan (1) Acute respiratory failure: Admitted to ICU, telemetry Will transfer patient out of ICU as patient no longer requires BIPAP And responded to diuretics. D/W slot tag inserter, and appears problem is mainly fluid and not infection Continue heparin drip started a [facility] Hold warfarin Replenish potassium as needed Duo nebs every 4 as needed ABGs Continue ceftriaxone and doxy Solu-Medrol 40 IV twice daily Full code (2) CHF exacerbation: Continue home medicine carvedilol 25 mg p.o. twice daily hold if blood pressure less than 120/80 and if heart rate less than 60. Continue amiodarone 200 mg p.o. every morning Continue telmisartan 160 mg p.o. every morning, hold if blood pressure less than 120/80 (3) Pneumonia: as noted above. will continue ceftriaxone and doxy, however likely main culprit is fluid overload. (4) Dyslipidemia: Continue atorvastatin 80 mg p.o. daily. Check lipid panel in a.m. (5) Hypertension: As the above, hold home agents if blood pressure was 120/80 spent 35 min in management of patient Subjective 73 yo female reports feeling better today as compared to when she was admitted. She reports her SOB at rest has improved. She denies any fever, chills, nausea, vomiting. Review of Systems Review of Systems: All systems reviewed & are unremarkable except as noted in HPI & below Physical Exam Physical Exam: Constitutional: WD/WN, vitals as above well developed, + ill appearing and + obese Eyes: PERRL, conjunctivae normal, anicteric sclerae ENMT: external ear and nose normal, oropharynx normal Neck: trachea midline, no thyromegaly Respiratory: no wheezing, mild bibasilar rales heard Cardiovascular: Heart Sounds: normal S1, normal S2 and + murmur Palpation: + palpable S3 Vessels: + JVD Extremities: normal capillary refill and + edema (1+ bilateral edema lower extremities nonpitting) Chest (Breasts): normal inspection/palpation of breasts Gastrointestinal (Abdomen): normal bowel sounds, soft, nontender, no hepatosplenomegaly Musculoskeletal: no cyanosis or clubbing, extremities motor strength 5/5 Skin: + dry skin Neurologic: patellar DTR's 2+ bilat, sensation intact Psychiatric: A+Ox3, euthymic affect Genitourinary: no vaginal lesions, no adnexal mass Lymphatic: no cervical or axillary lymphadenopathy Results & Data Vital Signs (Past 12 Hours) Vital Signs Temp Pulse Resp BP Pulse Ox 05/13/19 23:12 36.9 C 99 H 18 142/92 H 98 05/13/19 22:18 65 16 97 05/13/19 19:00 36.6 C 65 18 146/71 H 96 05/13/19 14:51 36.5 C 62 18 142/73 H 96 05/13/19 13:43 36.5 C 64 22 137/85 95 PG Care Time/CCT Total # of Minutes Spent Total Time Spent with Patient: Total time spent is greater than 50% in coordination of care (as documented) at patient's floor/unit and/or counseling patient:
[2019-05-13] MEDS ORDERED: METOPROLOL TARTRATE 1 MG/ML VIAL IV STA (23:48)
[2019-05-14 00:02] LABS: BUN Creatinine Ratio 22.5 (10-20); Calcium 8.6 mg/dl (8.5-10.1); Creatinine Clr Calc Pharmacy 51.1 ml/min; Est GFR (African American) 55.1; Est GFR (Non-African American) 47.5; Magnesium 1.8 mg/dl (1.8-2.4); Potassium 3.8 mmol/L (3.5-5.1)
[2019-05-14] MEDS: INSULIN ASPART 100 UNITS/ML 3 ML PEN SC SCH ×6 (00:16→20:23)
[2019-05-14] MEDS ORDERED: MAGNESIUM SULFATE / D5W 1 GM/100 ML BAG IV ONE (00:30)
[2019-05-14] MEDS: POTASSIUM CHLORIDE / WTR 10 MEQ/100 ML PLCT IV SCH ×2 (00:50→02:19)
[2019-05-14] MEDS: FUROSEMIDE 100 MG in DEXTROSE 5% 90 ML IV SCH ×2 (02:16→12:02)
[2019-05-14 06:03] LABS: Hematocrit (blood only) 31.8 % (37-47); Hemoglobin 10.4 g/dL (12.0-16.0); Mean Corpuscular Hgb Conc 32.7 g/dL (32-36); Mean Platelet Volume 10.2 fL (7.4-10.4); Platelet Count 215 K/uL (130-400); RDW Coefficient of Variation 14.8 % (11.5-14.5); RDW Standard Deviation 53.3 fL (36.4-46.3); Red Blood Count 3.15 M/uL (4.2-5.4)
--- NOTE | 2019-05-14 06:06 | Progress Note ---
Date of Service May 14, 2019 Subjective pt had episode of Afib with RVR at midnight with HR in 120s BMP checked K and Mag repleted/optimized Given lopressor 5mg IV x 1 Results & Data Vital Signs (Past 12 Hours) Vital Signs Temp Pulse Pulse Resp BP BP Pulse Ox 05/14/19 03:03 36.4 C L 64 16 131/64 96 05/14/19 00:03 120 H 142/92 H 05/13/19 23:12 36.9 C 99 H 18 142/92 H 98 05/13/19 22:18 65 16 97 05/13/19 20:00 70 05/13/19 19:00 36.6 C 65 18 146/71 H 96 PG Care Time/CCT Total # of Minutes Spent Total Time Spent with Patient: Total time spent is greater than 50% in coordination of care (as documented) at patient's floor/unit and/or counseling patient:
[2019-05-14 06:21] LABS: Albumin Level 2.9 gm/dl (3.4-5.0); BUN Creatinine Ratio 25.3 (10-20); Calcium 8.5 mg/dl (8.5-10.1); Est GFR (African American) 61.6; Est GFR (Non-African American) 53.1; Potassium 3.8 mmol/L (3.5-5.1)
[2019-05-14 06:22] LABS: INR 1.6 (0.9-1.1); Partial Thromboplastin Ratio 3.6; Prothrombin Time 15.6 Seconds (9.0-12.0)
[2019-05-14 06:27] LABS: Albumin Globulin Ratio 0.9 (0.9-2); Bilirubin,Total 0.6 mg/dl (0.2-1); Globulin 3.1 gm/dl (2.5-4.0)
[2019-05-14 06:31] LABS: Partial Thromboplastin Time 96.3 Seconds (21.0-31.0)
[2019-05-14 06:37] LABS: Basophils # (auto) 0.02 K/uL (0-0.2); Basophils % (auto) 0.1 %; Immature Granulocytes # (auto) 0.13 K/uL (0.00-0.02); Immature Granulocytes % (auto) 0.4 %; Lymphocytes % (auto) 47.9 %; Neutrophils # (auto) 15.65 K/uL (1.4-6.5); Neutrophils % (auto) 47.6 %; RBC Morphology Unremarkable
[2019-05-14] MEDS: INSULIN GLARGINE SOLOSTAR 100 UNITS/ML 3 ML PEN SC SCH ×2 (07:36→20:23)
[2019-05-14] MEDS: CITALOPRAM 20 MG TAB PO SCH (09:15)
[2019-05-14] MEDS: TELMISARTAN 40 MG TAB PO SCH (09:15)
[2019-05-14] MEDS: AMIODARONE 200 MG TAB PO SCH (09:15)
[2019-05-14] MEDS: methylPREDNISolone 30 MG in SYRINGE 0 ML IV SCH ×2 (09:15→22:14)
[2019-05-14] MEDS: POTASSIUM CHLORIDE 10 MEQ TABCR PO SCH ×3 (09:15→19:58)
[2019-05-14] MEDS: DOXYCYCLINE HYCLATE 100 MG CAP PO SCH ×2 (09:16→19:59)
[2019-05-14] MEDS: CARVEDILOL 25 MG TAB PO SCH ×2 (09:16→19:58)
[2019-05-14] MEDS: DiphenhydrAMINE HCL 50 MG/ML VIAL IV SCH (09:17)
[2019-05-14] MEDS: cefTRIAXone SODIUM 2,000 MG in DEXTROSE 5% 50 ML IV SCH (09:27)
[2019-05-14] MEDS: HEPARIN SODIUM/DEXTROSE 25,000 UNITS/500 ML BAG IV SCH (12:00)
--- NOTE | 2019-05-14 13:33 | Pharmacy Report ---
Pharmacy Glycemic Short Note 2 - Date of Service May 14, 2019 - Glycemic Short BSG Results (Last 24 hours): 05/13/19 05/13/19 05/13/19 16:20 20:09 23:29 Glucose 174 H POC Glucose 184 H 185 H 05/14/19 05/14/19 05/14/19 05:30 06:58 11:06 Glucose 155 H POC Glucose 163 H 140 H Outpatient Anti-diabetic Regimen: * metformin 500 mg po qAM * A1c = 5.8 % 05/13/19 The patient is currently receiving: * Basal insulin: Lantus 5-10 units SQ BID * Correctional Insulin: Novolog Correction per scale ACHS Goal Range: Low 140 mg/dL - High 180 mg/dL Correction Factor: 20 mg/dL/unit * Prandial insulin: 1 unit for every 6 grams CHO * Oral Agents: on hold Risk Factors for Insulin Resistance: * Steroids: solu medrol 30 mg IV q12 * Infection: pneumonia -> doxycycline + ceftriaxone * IVF: heparin infusion, furosemide drip * Diet: T2DM ASSESSMENT: 05/14 * Jere received 35 units of insulin yesterday (20 units of basal and 15 units of bolus). * Pt remains on solu medrol 30 mg IV q12h. * BSGs have greatly improved but majority of post prandials remain above 185 mg/dL , therefore novolog parameters have been tightened. I will also increase basal insulin scale for fasting BSG of 163 mg/dL. 05/13: * Jere is a 73 yr old T2DM female admitted to the ICU for acute respiratory failure with hypoxia secondary to right lower lobe pneumonia * A1c indicates good outpatient glycemic control managed with metformin * BSG elevation is likely due to infection and administration of IV steroids * Pt had decent glycemic control overnight with an elevated fasting BSG. Low dose Lantus will be initiated today. * She was started on a clear liquid diet this morning, therefore a carb ratio will be added to her novolog. PLAN FOR INPATIENT GLYCEMIC CONTROL: * Holding outpatient oral diabetes medications * Basal insulin - increase * Lantus per scale SQ BID * 0 units for BSG less than 140 mg/dL * 8 units for BSG 140 - 180 mg/dL * 15 units for BSG greater than 180 mg/dL * Bolus insulin - tighten * NovoLog per scale ACHS or Q6hrs while NPO * Goal Range: Low 120 mg/dL - High 160 mg/dL * Correction Factor: 20 mg/dL/unit * Nutritional / Prandial insulin per carb ratio of 1 unit per 6 grams CHO consumed PLAN FOR DISCHARGE: * A1c of 5.8% from 05/13/19 indicates excellent glycemic control * Recommend continuation of home regimen, metformin 500 mg po daily, on d ischarge. * Please note that the plan above was derived based on current level of insulin resistance and hospital stress. These recommendations are appropriate for inpatient admission only. Plan of care upon discharge will need to be reassessed to avoid potential outpatient hypo/hyperglycemia. Thank you.
--- NOTE | 2019-05-14 14:05 | Cardiology Progress Note ---
Date of Service May 14, 2019 Assessment & Plan (1) NSTEMI (non-ST elevated myocardial infarction): Suspect iatrogenic hypervolemia which may have precipitated her non ST elevation [place]. Would discontinue heparin today. Continue carvedilol and telmisartan. She may eventually require an implantable defibrillator. (2) Acute on chronic systolic (congestive) heart failure: Would continue intravenous diuretics, carvedilol, and telmisartan. (3) Ischemic cardiomyopathy: Ejection fraction is down to 30-35% with inferior and apical wall motion abnormalities. She may eventually require an implantable defibrillator. (4) PAF (paroxysmal atrial fibrillation): Warfarin has been placed on hold. We could consider change to one of the newer agents prior to discharge. Subjective The patient is resting comfortably in bed without complaints of chest pain, dyspnea, or palpitations. She did note palpitations at the time of atrial fibrillation last evening. Physical Exam Physical Exam: In general is well-developed well-nourished white female no acute distress. HEENT exam is negative. Neck is supple with full carotid upstrokes. No carotid bruits. Jugular is pressure is flat at 90 degrees. No thyromegaly. Cardiovascular exam reveals a regular rhythm with distant heart sounds. No obvious murmurs. No S3. Lungs no decreased breath sounds at the bases but no rales. Abdomen is obese without bruits. Extremities reveal intact radial artery pulses bilaterally. Trace pretibial edema is noted. Results & Data Vital Signs (Past 12 Hours) Vital Signs Temp Pulse Pulse Resp BP BP Pulse Ox 05/14/19 11:00 36.6 C 53 L 16 125/75 97 05/14/19 07:26 55 L 05/14/19 07:00 36.5 C 57 L 16 132/72 97 05/14/19 03:03 36.4 C L 64 16 131/64 96 Diagnostic Findings Echocardiogram performed yesterday noted moderate left ventricular dysfunction with an ejection fraction of 30-35%. There was inferior akinesis and apical akinesis with aneurysmal formation. Moderate mitral regurgitation seen. balloon artist notes paroxysms of atrial fibrillation in several brief episodes of nonsustained ventricular tachycardia. PG Care Time/CCT Total # of Minutes Spent Total Time Spent with Patient: Total time spent is greater than 50% in coordination of care (as documented) at patient's floor/unit and/or counseling patient:
[2019-05-14 14:51] LABS: Partial Thromboplastin Ratio 2.4
[2019-05-14 14:58] LABS: Partial Thromboplastin Time 64.1 Seconds (21.0-31.0)
[2019-05-14] MEDS: ATORVASTATIN 40 MG TAB PO SCH (19:58)
[2019-05-14] MEDS: APIXABAN 5 MG TABLET PO SCH (19:58)
--- NOTE | 2019-05-14 23:07 | Hospitalist Progress Note ---
Date of Service May 14, 2019 Assessment & Plan (1) Acute respiratory failure: Admitted to ICU, telemetry Will transfer patient out of ICU as patient no longer requires BIPAP And responded to diuretics. will switch from drip to twice daily dose. D/W paper grader, and appears problem is mainly fluid and not infection Cardio stopped heparin. Hold warfarin Replenish potassium as needed Duo nebs every 4 as needed ABGs Continue ceftriaxone and doxy Solu-Medrol 40 IV twice daily Full code (2) CHF exacerbation: Continue home medicine carvedilol 25 mg p.o. twice daily hold if blood pressure less than 120/80 and if heart rate less than 60. Continue amiodarone 200 mg p.o. every morning Continue telmisartan 160 mg p.o. every morning, hold if blood pressure less than 120/80 (3) Pneumonia: as noted above. will continue ceftriaxone and doxy, however likely main culprit is fluid overload. (4) Dyslipidemia: Continue atorvastatin 80 mg p.o. daily. Check lipid panel in a.m. (5) Hypertension: As the above, hold home agents if blood pressure was 120/80 (6) NSTEMI (non-ST elevated myocardial infarction): was on heparin. This was stopped today. Trop increased to 9, pending. Echo shows worsening EF. (7) Acute on chronic systolic (congestive) heart failure: As noted above. EF is 35% Will continue ramiro inhibitor and diuretic Updated family. Spent 60 minutes in management of patient. Subjective Patient reports being back to her baseline. She states she wants to be discharge. Family feels patient is not rerady for discharge. Patient denies any SOB, nausea, vomting chest pain. She reports swelling has improved. Review of Systems Review of Systems: All systems reviewed & are unremarkable except as noted in HPI & below Physical Exam Physical Exam: Constitutional: WD/WN, vitals as above well developed, + ill appearing and + obese Eyes: PERRL, conjunctivae normal, anicteric sclerae ENMT: external ear and nose normal, oropharynx normal Neck: trachea midline, no thyromegaly Respiratory: no wheezing, mild bibasilar rales heard Cardiovascular: Heart Sounds: normal S1, normal S2 and + murmur Palpation: + palpable S3 Extremities: normal capillary refill and + edema (decreased bilateral edema lower extremities nonpitting) Chest (Breasts): normal inspection/palpation of breasts Gastrointestinal (Abdomen): normal bowel sounds, soft, nontender, no hepatosplenomegaly Musculoskeletal: no cyanosis or clubbing, extremities motor strength 5/5 Skin: + dry skin Neurologic: patellar DTR's 2+ bilat, sensation intact Psychiatric: A+Ox3, euthymic affect Lymphatic: no cervical or axillary lymphadenopathy Results & Data Vital Signs (Past 12 Hours) Vital Signs Temp Pulse Pulse Resp BP Pulse Ox 05/14/19 18:55 36.6 C 59 L 18 131/74 94 05/14/19 15:05 36.6 C 56 L 18 122/52 L 98 05/14/19 15:01 52 L PG Care Time/CCT Total # of Minutes Spent Total Time Spent with Patient: Total time spent is greater than 50% in coordination of care (as documented) at patient's floor/unit and/or counseling patient:
[2019-05-15 06:38] LABS: Hematocrit (blood only) 31.9 % (37-47); Hemoglobin 10.3 g/dL (12.0-16.0); Mean Corpuscular Hemoglobin 32.8 pg (25-34); Mean Corpuscular Hgb Conc 32.3 g/dL (32-36); Mean Corpuscular Volume 101.6 fL (80-100); Mean Platelet Volume 10.1 fL (7.4-10.4); Platelet Count 215 K/uL (130-400); RDW Coefficient of Variation 14.7 % (11.5-14.5); Red Blood Count 3.14 M/uL (4.2-5.4); White Blood Count 27.01 K/uL (4.8-10.8)
[2019-05-15 06:51] LABS: INR 1.4 (0.9-1.1); Partial Thromboplastin Ratio 0.9; Partial Thromboplastin Time 24.4 Seconds (21.0-31.0); Prothrombin Time 13.8 Seconds (9.0-12.0)
[2019-05-15 07:40] LABS: Basophils # (auto) 0.02 K/uL (0-0.2); Basophils % (auto) 0.1 %; Immature Granulocytes # (auto) 0.07 K/uL (0.00-0.02); Immature Granulocytes % (auto) 0.3 %; Lymphocytes # (auto) 14.45 K/uL (1.2-3.4); Lymphocytes % (auto) 53.5 %; Monocytes % (auto) 1.9 %; Neutrophils # (auto) 11.97 K/uL (1.4-6.5); Neutrophils % (auto) 44.2 %; Smudge Cells Present
[2019-05-15] MEDS: CARVEDILOL 25 MG TAB PO SCH ×2 (07:49→20:36)
[2019-05-15] MEDS: CITALOPRAM 20 MG TAB PO SCH (07:49)
[2019-05-15] MEDS: DOXYCYCLINE HYCLATE 100 MG CAP PO SCH ×2 (07:50→20:35)
[2019-05-15] MEDS: APIXABAN 5 MG TABLET PO SCH ×2 (07:50→20:35)
[2019-05-15] MEDS: AMIODARONE 200 MG TAB PO SCH (07:50)
[2019-05-15] MEDS: TELMISARTAN 40 MG TAB PO SCH (07:50)
[2019-05-15] MEDS: INSULIN GLARGINE SOLOSTAR 100 UNITS/ML 3 ML PEN SC SCH ×2 (07:51→21:10)
[2019-05-15] MEDS: FUROSEMIDE 40 MG in SYRINGE 0 ML IV SCH ×2 (07:51→20:35)
[2019-05-15 07:53] LABS: Albumin Globulin Ratio 0.9 (0.9-2); Albumin Level 2.7 gm/dl (3.4-5.0); BUN Creatinine Ratio 31.5 (10-20); Bilirubin,Total 0.4 mg/dl (0.2-1); Calcium 9.3 mg/dl (8.5-10.1); Creatinine Clr Calc Pharmacy 48.1 ml/min; Est GFR (African American) 54.5; Globulin 3.2 gm/dl (2.5-4.0); Total Protein 5.9 gm/dl (6.4-8.2)
[2019-05-15] MEDS: POTASSIUM CHLORIDE 10 MEQ TABCR PO SCH ×3 (07:53→20:35)
[2019-05-15] MEDS: DiphenhydrAMINE HCL 50 MG/ML VIAL IV SCH (07:57)
[2019-05-15] MEDS: INSULIN ASPART 100 UNITS/ML 3 ML PEN SC SCH ×4 (07:58→21:10)
[2019-05-15] MEDS: cefTRIAXone SODIUM 2,000 MG in DEXTROSE 5% 50 ML IV SCH (08:09)
[2019-05-15 08:12] LABS: Potassium 4.4 mmol/L (3.5-5.1)
[2019-05-15] MEDS: methylPREDNISolone 30 MG in SYRINGE 0 ML IV SCH ×2 (10:52→21:13)
--- NOTE | 2019-05-15 13:23 | Cardiology Progress Note ---
Date of Service May 15, 2019 Assessment & Plan (1) NSTEMI (non-ST elevated myocardial infarction): Suspect iatrogenic hypervolemia may have precipitated her NSTEMI. Continue carvedilol and telmisartan. She may eventually require an implantable defibrillator. (2) Acute on chronic systolic (congestive) heart failure: Would continue intravenous diuretics, carvedilol, and telmisartan. (3) Ischemic cardiomyopathy: Ejection fraction is down to 30-35% with inferior and apical wall motion abnormalities. Will recheck an echocardiogram in 2-3 months. She may eventually require an implantable defibrillator. (4) PAF (paroxysmal atrial fibrillation): Warfarin has been discontinued. We could consider a change to Eliquis prior to discharge. Subjective The patient is resting comfortably in bed without complaints of chest pain or dyspnea. Her daughter is at the bedside. Physical Exam Physical Exam: In general is well-developed well-nourished white female no acute distress. HEENT exam is negative. Neck is supple with full carotid upstrokes. No carotid bruits. Jugular is pressure is flat at 90 degrees. No thyromegaly. Cardiovascular exam reveals a regular rhythm with distant heart sounds. No obvious murmurs. No S3. Lungs no decreased breath sounds at the bases but no rales. Abdomen is obese without bruits. Extremities reveal intact radial artery pulses bilaterally. Trace pretibial edema is noted. Results & Data Vital Signs (Past 12 Hours) Vital Signs Temp Pulse Pulse Resp BP BP Pulse Ox 05/15/19 11:54 36.5 C 60 18 94/77 L 94 05/15/19 09:43 55 L 05/15/19 07:00 36.4 C L 57 L 16 154/81 H 95 05/15/19 03:41 36.5 C 56 L 16 158/99 H 97 Diagnostic Findings hall monitor notes sinus rhythm with occasional PACs and PVCs. No atrial fibrillation. PG Care Time/CCT Total # of Minutes Spent Total Time Spent with Patient: Total time spent is greater than 50% in coordination of care (as documented) at patient's floor/unit and/or counseling patient:
--- NOTE | 2019-05-15 15:28 | Hospitalist Progress Note ---
Date of Service May 15, 2019 Assessment & Plan (1) Acute respiratory failure: Continue PCU on telemetry, patient transfer from the ICU Patient does not longer requires BIPAP Responding well to diuretics. Continue diuretics twice a day. Cardio stopped heparin and she was started yesterday By Dr. Brooks on Apixaban 5 mg BID for Afibs Warfarin discontinued before arrival to the ICU due to elevated troponin and need for heparin gtt. Replenish potassium as needed Duo nebs every 4 as needed Continue ceftriaxone and doxy Solu-Medrol 30 IV twice daily. Pt is still on 4 L, consider tapering down in 1-2 days. DVT ppx -Apixaban Appreciate cardiac recommendations: For NSTEMI due to volume overload continue carvedilol and telmisartan for now patient will require implantable defibrillator. Continue IV diuretics carvedilol and telmisartan.. Repeat echocardiogram in 2 to 3 months. Cardiology recommended to start Eliquis prior to discharge. Full code (2) CHF exacerbation: Continue home medicine carvedilol 25 mg p.o. twice daily hold if blood pressure less than 120/80 and if heart rate less than 60. Continue amiodarone 200 mg p.o. every morning Continue telmisartan 160 mg p.o. every morning, hold if blood pressure less than 120/80 (3) Pneumonia: as noted above. will continue ceftriaxone and doxy, however likely main culprit is fluid overload. (4) Dyslipidemia: Continue atorvastatin 80 mg p.o. daily. Lipid panel:pending (5) Hypertension: As the above, hold home agents if blood pressure was 120/80 (6) NSTEMI (non-ST elevated myocardial infarction): resolved (7) Acute on chronic systolic (congestive) heart failure: As noted above. EF is 35% Will continue ramiro inhibitor and diuretic Meet with family , all questions answered. Spent 60 minutes in management of patient. Subjective Seen and examined at the bedside. No acute event overnight. Slowly improving she is still on 4 L of oxygen. Patient is afebrile. Denies fever chills chest pain shortness of breath abdominal pain frequency urgency hematemesis hematuria dysuria. P.o. intake slowly improving. Review of Systems Review of Systems: All systems reviewed & are unremarkable except as noted in HPI & below Physical Exam Constitutional: WD/WN, vitals as above well developed, + ill appearing and + obese Eyes: PERRL, conjunctivae normal, anicteric sclerae ENMT: external ear and nose normal, oropharynx normal Neck: trachea midline, no thyromegaly Respiratory: + respiratory distress, + dullness to percussion, + cough, able to speak in complete sentences and + prolonged expiratory phase Auscultation: + crackles and + wheezes Cardiovascular: Heart Sounds: normal S1, normal S2 and + murmur Palpation: + palpable S3 Vessels: + JVD Extremities: normal capillary refill and + edema (1+ bilateral edema lower extremities nonpitting) Chest (Breasts): normal inspection/palpation of breasts Gastrointestinal (Abdomen): normal bowel sounds, soft, nontender, no hepatosplenomegaly Musculoskeletal: no cyanosis or clubbing, extremities motor strength 5/5 Skin: + dry skin Neurologic: patellar DTR's 2+ bilat, sensation intact Psychiatric: A+Ox3, euthymic affect Genitourinary: no vaginal lesions, no adnexal mass Lymphatic: no cervical or axillary lymphadenopathy Results & Data Vital Signs (Past 12 Hours) Vital Signs Temp Pulse Pulse Resp BP BP Pulse Ox 05/15/19 14:46 36.6 C 59 L 18 136/71 94 05/15/19 11:54 36.5 C 60 18 94/77 L 94 05/15/19 09:43 55 L 05/15/19 07:00 36.4 C L 57 L 16 154/81 H 95 05/15/19 03:41 36.5 C 56 L 16 158/99 H 97 PG Care Time/CCT Total # of Minutes Spent Total Time Spent with Patient: Total time spent is greater than 50% in coordination of care (as documented) at patient's floor/unit and/or counseling patient:
[2019-05-15] MEDS: ATORVASTATIN 40 MG TAB PO SCH (20:36)
[2019-05-16 06:06] LABS: INR 1.3 (0.9-1.1); Partial Thromboplastin Ratio 0.9; Partial Thromboplastin Time 23.9 Seconds (21.0-31.0); Prothrombin Time 12.7 Seconds (9.0-12.0)
[2019-05-16 06:15] LABS: Albumin Level 2.7 gm/dl (3.4-5.0); BUN Creatinine Ratio 33.8 (10-20); Calcium 9.1 mg/dl (8.5-10.1); Creatinine Clr Calc Pharmacy 45.7 ml/min; Est GFR (African American) 51.2; Est GFR (Non-African American) 44.2; Potassium 4.4 mmol/L (3.5-5.1)
[2019-05-16 06:19] LABS: Albumin Globulin Ratio 0.9 (0.9-2); Bilirubin,Total 0.3 mg/dl (0.2-1); Globulin 3.1 gm/dl (2.5-4.0); Total Protein 5.8 gm/dl (6.4-8.2)
[2019-05-16 06:34] LABS: Hematocrit (blood only) 33.4 % (37-47); Hemoglobin 10.7 g/dL (12.0-16.0); Mean Corpuscular Hemoglobin 32.4 pg (25-34); Mean Corpuscular Volume 101.2 fL (80-100); Mean Platelet Volume 10.2 fL (7.4-10.4); Platelet Count 223 K/uL (130-400); RDW Coefficient of Variation 14.3 % (11.5-14.5); RDW Standard Deviation 52.6 fL (36.4-46.3)
[2019-05-16 07:00] LABS: Basophils # (auto) 0.02 K/uL (0-0.2); Basophils % (auto) 0.1 %; Immature Granulocytes % (auto) 0.3 %; Monocytes # (auto) 0.92 K/uL (0.11-0.59); Monocytes % (auto) 2.8 %; Neutrophils # (auto) 11.26 K/uL (1.4-6.5); Neutrophils % (auto) 34.8 %; Smudge Cells Present
[2019-05-16] MEDS ORDERED: INSULIN GLARGINE SOLOSTAR 100 UNITS/ML 3 ML PEN SC SCH (09:00)
[2019-05-16] MEDS: FUROSEMIDE 40 MG in SYRINGE 0 ML IV SCH (09:28)
[2019-05-16] MEDS: INSULIN ASPART 100 UNITS/ML 3 ML PEN SC SCH ×2 (09:29→12:00)
[2019-05-16] MEDS: TELMISARTAN 40 MG TAB PO SCH (09:31)
[2019-05-16] MEDS: methylPREDNISolone 30 MG in SYRINGE 0 ML IV SCH (09:31)
[2019-05-16] MEDS: CITALOPRAM 20 MG TAB PO SCH (09:31)
[2019-05-16] MEDS: DOXYCYCLINE HYCLATE 100 MG CAP PO SCH (09:31)
[2019-05-16] MEDS: POTASSIUM CHLORIDE 10 MEQ TABCR PO SCH ×2 (09:32→14:19)
[2019-05-16] MEDS: APIXABAN 5 MG TABLET PO SCH (09:32)
[2019-05-16] MEDS: CARVEDILOL 25 MG TAB PO SCH (09:32)
[2019-05-16] MEDS: AMIODARONE 200 MG TAB PO SCH (09:32)
[2019-05-16] MEDS: DiphenhydrAMINE HCL 50 MG/ML VIAL IV SCH (09:37)
[2019-05-16] MEDS: cefTRIAXone SODIUM 2,000 MG in DEXTROSE 5% 50 ML IV SCH (10:08)
--- NOTE | 2019-05-16 10:11 | Cardiology Progress Note ---
Date of Service May 16, 2019 Assessment & Plan (1) NSTEMI (non-ST elevated myocardial infarction): Suspect iatrogenic hypervolemia precipitated her NSTEMI. Continue carvedilol and telmisartan. Would discharge on the daily dose of furosemide 40 mg. She may eventually require an implantable defibrillator. (2) Acute on chronic systolic (congestive) heart failure: Would continue furosemide, carvedilol, and telmisartan. (3) Ischemic cardiomyopathy: Ejection fraction is 30-35% with inferior and apical wall motion abnormalities. Will recheck an echocardiogram in 2-3 months. She may eventually require an implantable defibrillator. (4) PAF (paroxysmal atrial fibrillation): Tolerating Eliquis 5 mg b.i.d.. Subjective The patient is resting comfortably in bed without complaints of chest pain or dyspnea. She is anxious for hospital discharge. Physical Exam Physical Exam: In general is well-developed well-nourished white female no acute distress. HEENT exam is negative. Neck is supple with full carotid u pstrokes. No carotid bruits. Jugular is pressure is flat at 90 degrees. No thyromegaly. Cardiovascular exam reveals a regular rhythm with distant heart sounds. No obvious murmurs. No S3. Lungs no decreased breath sounds at the bases but no rales. Abdomen is obese without bruits. Extremities reveal intact radial artery pulses bilaterally. Trace pretibial edema is noted. Results & Data Vital Signs (Past 12 Hours) Vital Signs Temp Pulse Pulse Resp BP BP Pulse Ox 05/16/19 08:00 57 L 14 05/16/19 07:36 36.5 C 56 L 18 155/86 H 96 05/16/19 03:13 36.5 C 60 19 130/76 96 05/15/19 23:38 62 05/15/19 23:08 36.7 C 64 18 147/79 H 96 PG Care Time/CCT Total # of Minutes Spent Total Time Spent with Patient: Total time spent is greater than 50% in coord ination of care (as documented) at patient's floor/unit and/or counseling patient:
--- NOTE | 2019-05-16 12:53 | Pharmacy Report ---
Pharmacy Glycemic Short Note 2 - Date of Service May 16, 2019 - Glycemic Short BSG Results (Last 24 hours): 05/15/19 05/15/19 05/16/19 16:15 20:46 05:24 Glucose 156 H POC Glucose 163 H 192 H 05/16/19 05/16/19 07:32 11:26 Glucose POC Glucose 140 H 144 H Outpatient Anti-diabetic Regimen: * metformin 500 mg po qAM * A1c = 5.8 % 05/13/19 The patient is currently receiving: * Basal insulin: Lantus 5-10 units SQ BID * Correctional Insulin: Novolog Correction per scale ACHS Goal Range: Low 140 mg/dL - High 180 mg/dL Correction Factor: 20 mg/dL/unit * Prandial insulin: 1 unit for every 6 grams CHO * Oral Agents: on hold Risk Factors for Insulin Resistance: * Steroids: solu medrol 30 mg IV q12 * Infection: pneumonia -> doxycycline + ceftriaxone * IVF: heparin infusion, furosemide drip * Diet: T2DM ASSESSMENT: 05/16 * Jere received 46 units of insulin yesterday (23 units of basal;23 units of bolus) * Pt reamins on solu-medrol 30 mg q12H * BSGs adequately controlled, did have 1 bsg >180 yesterday at bedtime- will continue current novolog parameters, split lantus to 12 units BID 05/14 * Jere received 35 units of insulin yesterday (20 units of basal and 15 units of bolus). * Pt remains on solu medrol 30 mg IV q12h. * BSGs have greatly improved but majority of post prandials remain above 185 mg/dL , therefore novolog parameters have been tightened. I will also increase basal insulin scale for fasting BSG of 163 mg/dL. 05/13: * Jere is a 73 yr old T2DM female admitted to the ICU for acute respiratory failure with hypoxia secondary to right lower lobe pneumonia * A1c indicates good outpatient glycemic control managed with metformin * BSG elevation is likely due to infection and administration of IV steroids * Pt had decent glycemic control overnight with an elevated fasting BSG. Low dose Lantus will be initiated today. * She was started on a clear liquid diet this morning, therefore a carb ratio will be added to her novolog. PLAN FOR INPATIENT GLYCEMIC CONTROL: * Holding outpatient oral diabetes medications * Basal insulin - * Lantus 12 units SQ BID * * Bolus insulin - no change * NovoLog per scale ACHS or Q6hrs while NPO * Goal Range: Low 120 mg/dL - High 160 mg/dL * Correction Factor: 20 mg/dL/unit * Nutritional / Prandial insulin per carb ratio of 1 unit per 6 grams CHO consumed PLAN FOR DISCHARGE: * A1c of 5.8% from 05/13/19 indicates excellent glycemic control * Recommend continuation of home regimen, metformin 500 mg po daily, on discharge. * Please note that the plan above was derived based on current level of insulin resistance and hospital stress. These recommendations are appropriate for inpatient admission only. Plan of care upon discharge will need to be reassessed to avoid potential outpatient hypo/hyperglycemia. Thank you.
--- NOTE | 2019-05-16 15:16 | Med Student Discharge Summary ---
Date of Service May 16, 2019 Admission HPI Per Admitting Provider Patient is a 73 years old female with past medical history of hypertension, dyslipidemia, coronary artery disease ,congestive heart failure, COPD, GERD, depression, migraine headache who was directly admitted transferred from the emergency room at [facility] to [facility] ICU, for elevated troponin of 0.95, shortness of breath and needs to use BiPAP, lactic acidosis with lactic acid of 3.7, elevated white blood cell count 38,700. Inderal came in the ER EKG showed sinus rhythm 90 bpm. There is nonspecific anterior ventricular conduction delay. Poor R wave progression across the precordial l garrett suggestive of old anterior wall NC. Diffuse ST segment depression seen in lateral precordial and inferior leads abnormal tracing compared to previous tracing on April 22, 2019. ST segment depression is new. EKG repeated 2 hours later again showed normal sinus rhythm and rate of 67. Sinus rhythm with occasional PACs. Nonspecific ventricular conduction delay. Previously seen ST segment depression in a.m. and lateral inferior leads is now resolved. Abnormal tracing improved from tracing performed earlier today. Chest x-ray showed diffuse cephalization of pulmonary vessels. There is a right lower lobe infiltrate and possible left lower lobe infiltrate suggesting pneumonia. Cardiomegaly and extensive interstitial edema has developed since previous exam 07/01. Urine analysis negative. At [facility] ER patient was given aspirin 81 mg p.o., IV bolus 500 mils over 30 minutes, nitroglycerin paste 1 inch, Lopressor 2.5 mg IV, albuterol 10 mg neb, Lasix 40 mg IV, another normal saline bolus of thousand, Rocephin 1 g, another bolus of normal saline 500 mils, vancomycin 1 g, heparin 4000 units IVP, albuterol Atrovent dose, heparin drip 12 units/mg/kg, potassium chloride 40 mg p.o. patient needed to be on BiPAP which improved her breathing and when she left okay when ER she was on 4 L of nasal cannula oxygen. On physical exam patient denies fever chills, headache, reports some congestion in her chest but denies chest pain, denies abdominal pain frequency urgency hematuria hemoptysis melena. Patient speaks in full voice she is alert and oriented x3. Patient arrived in critical condition and accepted to the intensive care unit for further evaluation and treatment. Admission Exam (Per Admitting) Constitutional WD/WN, vitals as above well developed, well nourished, + morbidly obese and comfortable; no acute distress Eyes PERRL, conjunctivae normal, anicteric sclerae no fundoscopic abnormality and no optic disc abnormality Respiratory normal respiratory effort, lungs clear to auscultation + dullness to percussion, able to speak in complete sentences and + prolonged expiratory phase Auscultation: lungs clear to auscultation bilaterally; no egophony Cardiovascular RRR, no murmur, no edema Vessels: no JVD and no carotid bruit Extremities: normal capillary refill; no pedal edema and no edema Gastrointestinal (Abdomen) normal bowel sounds, soft, nontender, no hepatosplenomegaly Percussion/Palpation: abdomen nontender and no hepatosplenomegaly Musculoskeletal Head/Neck/Chest: normocephalic and head atraumatic Extremities: no cyanosis and no clubbing Skin no rashes, warm and dry Neurologic patellar DTR's 2+ bilat, sensation intact and PERRL, EOMI, accommodation nl, no face palsy, no dysarthria Psychiatric A+Ox3, euthymic affect Discharge Data Consultations 05/12/19 20:39 Consult Cardiology Routine Consult Digital Assistant Routine Patient is a 73 y/o female who presented to the [facility] ER on May 12 via [facility] ER for complaints of shortness of breath. She required BiPAP to sustain breathing and had a lactic acidosis (lactic acid: 3.7) upon admission. Her WBC was elevated at 38.7K. Urinalysis was negative and EKG initially showed ST depressions in the lateral inferior leads, which then resolved. Two hours later, she was in sinus rhythm with some PACs. Chest X-ray showed right lower lobe infiltrate, indicating pneumonia, and also showed cardiomegaly and interstitial edema. On May 16, the patient appears well enough for discharge. She is no longer short of breath, able to speak in complete sentences, her PO intake and appetite is close to baseline, and states, "I am 100% better." The patient was assessed for the following throughout her stay: 1. Acute Respiratory Failure Patient no longer requires BiPap and has been responding well to diuretics. She will be discharged with furosemide 40 mg PO BID and KCl 10 mEq PO BID. Repeat BMP should be completed in 1 week. Patient was also taking DuoNeb as needed. She will be discharged with advisement to use her home inhalers, Albuterol Sulfate and Breo Ellipta, as indicated. Coumadin was discontinued and patient was started on Apixaban (Eliquis) 5 mg BID for atrial fibrillation. Solumedrol will be tapered down upon discharge. Patient should take 40 mg (Day 1), then 30 mg (Day 2), then 20 mg (Day 3), then 10 mg (Day 4), then 5 mg (Day 5 - final dose). 2. CHF Exacerbation Lungs were clear to auscultation, there was no JVD, pedal or calf edema present bilaterally. Patient's heart had regular rate and rhythm, no rubs, murmurs, or gallops upon auscultation. No carotid bruits were auscultated. Discharged with carvedilol (25 mg PO BID), amiodarone (200 mg PO qAM), and telmisartan (40 mg PO qAM). 3. Community-Acquired Pneumonia Patient is no longer short of breath and her lungs were clear to auscultation with no rales, wheezes, rhonchi, or stridor. No egophony or whispered pectroliloquy were present. Tactile fremitus was normal. There was slight dullness to percussion in the right lower lobe and a slightly prolonged expiratory phase. Discharged with Cefnidir (300 mg PO BID) for 5 days and Doxycycline (100 mg PO BID) for 4 days. She will also be prescribed a probiotic, Lactobacillus Acidophilus (2 capsules PO QID), to be taken for 60 days. 4. Hyperlipidemia Patient's lipid profile is well managed. Continue atorvastatin 80 mg PO. 5. Hypertension Patient will be discharged with carvedilol and telmisartan (see #2 above for dosing). 6. NSTEMI This has resolved and was likely due to fluid overload. Follow-up with outpatient cardiology and repeat echocardiogram is recommended in 2-3 months. Continue carvedilol and telmisartan. Patient may eventually require an implantable defibrillator. 7. Acute/Chronic Systolic Congestive Heart Failure Patient's ejection fraction is 30-35% with inferior and apical wall motion abnormalities. Continue with furoseminde, carvedilol, and telmisartan. Patient will also be discharged with the following medications: -Nitroglycerin [Nitrostat] 0.4 mg tablet, sublingual, PRN - chest pain; -Diclofenac sodium [Voltaren] 1% gel QID PRN - pain; -Citalopram [Celexa] 20 mg tablet PO daily; -Lorazepam [Ativan] 0.5 tablet PO BID PRN; -Fluticasone propionate 1 spray intranasal daily; -Metformin 500 mg tablet PO qAM The following medications are discontinued and should not be taken: -Torsemide 20 mg PO qAM -Telmisartan 80 mg PO qAM -Carvedilol 6.25 mg PO TID -Warfarin 2.5 mg PO Discharge Plan Discharge Items Patient Disposition: Home - Self-Care Reason For Visit: PNEUMONIA,CLL,CHF Discharge Diagnosis: Acute shortness of breath with hypoxemia below Community-acquired pneumonia Acute on chronic systolic congestive heart failure, resolved Suspected obstructive sleep apnea COPD exacerbation Condition: Good Discharge Goals: Decrease discomfort and Improve function Activity: Resume your previous activity Lifting: Gradually increase as tolerated Bathing: No limitations Sexual Activity: When tolerated Exercise/Sports: Wait until after follow-up appointment Driving/Machine Use: Resume 3 days after discharge Weightbearing: Full weightbearing Non-emergency contact: Primary Care Provider Call non-emergency contact if: you have any medication questions, your symptoms worsen and your temperature is above 100.5 Follow-up/Referrals: Tatiana Ch PA-C [Physician Thread Spooler] - 05/19/19 10:30 am (Please, follow up at [facility] Cardiology Office / CHF Clinic with Kortney Ch PA-C on WednesdayMay 19 at 10:30 am. *The office is located in [address] of [facility] [address] [facility]. This is the big building next to this [facility]. If you need to change this appointment, call the office at [phone].) Mary Jane Cruz DO [Primary Care Provider] - 05/22/19 11:20 am (Persistent leukocytosis, consider follow-up with heating technician Please, follow up with Dr. Mary Jane Cruz on WednesdayMay 22 at 11:20 am. *If you need to change this appointment, call the office at [phone].) Diet: Low Sodium (2gm) Fluids: 1500ml (6 cups) Addtl Provider Instructions: You have suspected obstructive sleep apnea Please do sleep study as an outpatient Follow-up with your heating technician on your elevated white blood cell count as it is slightly higher than baseline. Prescriptions: New carvedilol 25 mg Tablet 25 mg PO BID Qty: 60 RF: 1 doxycycline hyclate 100 mg Capsule 100 mg PO BID 4 Days Qty: 8 RF: 0 telmisartan 40 mg Tablet 40 mg PO QAM Qty: 30 RF: 1 nitroglycerin [Nitrostat] 0.4 mg Tablet, Sublingual 0.4 mg sublingual UD PRN (Reason: Chest Pain) Qty: 25 RF: 0 diclofenac sodium [Voltaren] 1 % Gel 1 applic topical QID PRN (Reason: Pain) 10 Days Qty: 60 RF: 0 Eliquis 5 mg Tablet 5 mg PO BID Qty: 60 RF: 2 furosemide 40 mg tablet 40 mg PO BID PRN (Reason: edema) Qty: 60 RF: 0 cefdinir 250 mg/5 mL suspension for reconstitution 300 mg PO BID 5 Days Qty: 60 RF: 0 Lactobacillus acidophilus capsule 2 cap PO QID Qty: 60 RF: 0 prednisone 10 mg tablet 10 mg PO DIRECTED Qty: 11 RF: 0 Continued atorvastatin [Lipitor] 80 mg Tablet 80 mg PO HS RF: 0 amiodarone 200 mg Tablet 200 mg PO QAM RF: 0 potassium chloride 10 mEq Tablet Extended Release 10 meq PO BID RF: 0 albuterol sulfate 90 mcg/actuation Hfa Aerosol Inhaler 1 puff INHALATION Q6H PRN (Reason: Shortness Of Breath) RF: 0 Breo Ellipta inhaler 1 inh inhalation DAILY RF: 0 citalopram 20 mg Tablet 20 mg PO DAILY RF: 0 lorazepam 0.5 mg Tablet 0.5 mg BUCCAL BID PRN (Reason: Anxiety) RF: 0 fluticasone propionate 50 mcg/actuation spray,suspension 1 spray intranasal DAILY RF: 0 metformin 500 mg tablet extended release 24 hr 500 mg PO QAM RF: 0 Discontinued torsemide 20 mg Tablet 20 mg PO QAM RF: 0 telmisartan 80 mg Tablet 80 mg PO QAM RF: 0 carvedilol 6.25 mg Tablet 6.25 mg PO TID RF: 0 warfarin [Jantoven] 2.5 mg tablet 2.5 mg PO DAILY RF: 0 Stand-Alone Forms: My [facility] Discharge Orders: Discharge Order (Routine); Ordered 05/16/19 Ordered By: Constance Hart Admission Data Admit Date/Time: 05/12/19 20:13 Attending Provider: Constance Marshall Admit Provider: Christen Christian Primary Care Provider: Mary Jane Cruz Other Providers: Rigo Robison ; Jarod Ford Service: Intensive Care Unit Other Interventions: Discharge Summary Assessment (RN) Last Done: 05/16/19 15:31 DC Date/Time DO NOT enter until pt leaves facility: 05/16/19 16:23 Supervising Attestation I personally interviewed and examined the patient. I agree with history of present illness and physical exam mentioned above, I also performed my own history taking and examination. Past medical history and review of system has been obtained by myself I reviewed all pertinent labs and studies Reviewed current medications I discussed and formulated of the assessment and plan mentioned above. Please refer to the Summary mentioned below. History of present illness and admission, as above Final discharge diagnoses Acute respiratory failure with hypoxemia secondary to below Systolic CHF acute on chronic exacerbation Community-acquired pneumonia Atrial fibrillation with adequate rate control, discharged on Eliquis Dyslipidemia Essential hypertension Morbid obesity CLL with white blood cell count slightly above baseline Non-STEMI Clinically suspected obstructive sleep apnea Review of system Constitutional: No fever / no chills / no sweats / no weakness / no fatigue Eyes: no blurring of vision / no eye pain / no discharge / no redness ENT: no hearing loss / no epistaxis /no swallowing problems Respiratory: no cough / no wheezing / no SOB / no hemoptysis Cardiovascular: no Chest pain / no lower extremity edema / no palpitation Abdomen: no pain / no nausea / no vomiting / no constipation Musculoskeletal: no joint pain / no muscle pain / no joint swelling Genitourinary: no dysuria / no incontinence / no urinary retention Neurologic: no focal weakness / no numbness/tingling / no ataxia Psychiatric: no depression symptoms / no anxiety / no insomnia Endocrine: no excessive thirst / no excessive urination Hematologic: no abnormal bleeding / no bruising / no LN swelling Skin: No rash / no pallor General Appearance: not in acute distress Eyes: normal Sclerae, extraocular muscle intact ENT: hearing grossly normal Neck: supple Respiratory/Chest: normal air entry bilateral ,no respiratory distress, no accessory muscle use Cardiovascular: regular rate, rhythm, no murmur Abdomen: non tender, soft, no masses Extremities: no edema musculoskeletal: no significant swelling or inflammation in any joint Neurologic/Psychiatric: Awake alert oriented times place and person moves all extremities sensation intact cranial nerves II-12 appear to be intact Skin: normal color, warm/dry, no rash Hospital course Patient presented to the ED on 05/12/2019 with severe shortness of breath, she was found to have hypoxemia required BiPAP machine support, initially admitted to ICU, patient shortness of breath and hypoxemia was attributed to acute chronic systolic congestive heart failure, ejection fraction was 30 to 35%, four corner former machine operator consult appreciated, patient was started on Lasix 40 mg IV twice daily, slowly improved and Lasix was switched to oral 40 mg p.o. twice daily, patient will follow up with four corner former machine operator and primary care physician as an outpatient, during this time her carvedilol dose was increased from 6.5 twice daily to 25 mg p.o. twice daily, her her telmisartan dose was also changed, it was decreased from 80 mg p.o. daily to 40 mg p.o. daily, Patient also was found to have community-acquired pneumonia contributing to her hypoxemia, she was started on ceftriaxone IV that was switched to cefdinir upon discharge to continue 7 days total, also was started on doxycycline to cover atypical bacteria that was continued for 7 days total. W patient also was prescribed lactobacillus to prevent C. difficile upon discharge. Patient also was treated with nebulizer bronchodilators, and IV steroids that was switched to short 4 days tapering dose of oral prednisone. Patient warfarin was discontinued, she was started on Eliquis instead and tolerated it well. Her heart rate was controlled S with amiodarone and carvedilol. a her hemoglobin A1c was 5.8, hence her metformin upon discharge was restarted 500 mg p.o. daily without change. Patient with above-mentioned management significantly improve, today she is on room air, able to speak full sentences without shortness of breath, patient was walked by nursing staff and her O2 sat did not drop without any oxygen support. Patient was instructed to have sleep study as an outpatient Also instructed to follow-up with heating technician as her white blood cell count slightly higher than her baseline, although it could be attributed to her current stress, infection, steroids. Kelsey Hart MD, [facility]
[2019-05-16 15:22] VITALS: BP 160/75; PULSE 60; TEMP 97.9; O2SAT 96
--- NOTE | 2019-05-19 08:39 | Discharge Summary ---
Date of Service May 16, 2019 This note was placed for billing purposes, it is an extension to my previous note. Please refer to the full note that was generated by me and the medical student for the same day for clinical information. Admission HPI Per Admitting Provider Patient is a 73 years old female with past medical history of hypertension, dyslipidemia, coronary artery disease ,congestive heart failure, COPD, GERD, depression, migraine headache who was directly admitted transferred from the emergency room at [facility] to [facility], for elevated troponin of 0.95, shortness of breath and needs to use BiPAP, lactic acidosis with lactic acid of 3.7, elevated white blood cell count 38,700. Inderal came in the ER EKG showed sinus rhythm 90 bpm. There is nonspecific anterior ventricular conduction delay. Poor R wave progression across the precordial leads suggestive of old anterior wall [place]. Diffuse ST segment depression seen in lateral precordial and inferior leads abnormal tracing compared to previous tracing on April 22, 2019. ST segment depression is new. EKG repeated 2 hours later again showed normal sinus rhythm and rate of 67. Sinus rhythm with occasional PACs. Nonspecific ventricular conduction delay. Previously seen ST segment depression in a.m. and lateral inferior leads is now resolved. Abnormal tracing improved from tracing performed earlier today. Chest x-ray showed diffuse cephalization of pulmonary vessels. There is a right lower lobe infiltrate and possible left lower lobe infiltrate suggesting pneumonia. Cardiomegaly and extensive interstitial edema has developed since previous exam 07/01. Urine analysis negative. At [facility] ER patient was given aspirin 81 mg p.o., IV bolus 500 mils over 30 minutes, nitroglycerin paste 1 inch, Lopressor 2.5 mg IV, albuterol 10 mg neb, Lasix 40 mg IV, another normal saline bolus of thousand, Rocephin 1 g, another bolus of normal saline 500 mils, vancomycin 1 g, heparin 4000 units IVP, albuterol Atrovent dose, heparin drip 12 units/mg/kg, potassium chloride 40 mg p.o. patient needed to be on BiPAP which improved her breathing and when she left okay when ER she was on 4 L of nasal cannula oxygen. On physical exam patient denies fever chills, headache, reports some congestion in her chest but denies chest pain, denies abdominal pain frequency urgency hematuria hemoptysis melena. Patient speaks in full voice she is alert and oriented x3. Patient arrived in critical condition and accepted to the intensive care unit for further evaluation and treatment. Principal Diagnosis This note was placed for billing purposes, it is an extension to my previous note. Please refer to the full note that was generated by me and the medical student for the same day for clinical information. Discharge Data Allergies Allergy/AdvReac Type Severity Reaction Status Date / Time bee venom protein (honey bee) Allergy Severe Anaphylaxis Verified 05/11/19 12:26 Penicillins Allergy Mild Rash Verified 05/11/19 12:26 Sulfa (Sulfonamide Allergy Mild Rash Verified 05/11/19 12:26 Antibiotics) Consultations 05/12/19 20:39 Consult Cardiology Routine Consult Draw String Knotter Routine Hospital Course (1) Acute respiratory failure: Continue PCU on telemetry, patient transfer from the ICU Patient does not longer requires BIPAP Responding well to diuretics. Continue diuretics twice a day. Cardio stopped heparin and she was started yesterday By Dr. [facility] on Apixaban 5 mg BID for Afibs Warfarin discontinued before arrival to the ICU due to elevated troponin and need for heparin gtt. Replenish potassium as needed Duo nebs every 4 as needed Continue ceftriaxone and doxy Solu-Medrol 30 IV twice daily. Pt is still on 4 L, consider tapering down in 1-2 days. DVT ppx -Apixaban Appreciate cardiac recommendations: For NSTEMI due to volume overload continue carvedilol and telmisartan for now patient will require implantable defibrillator. Continue IV diuretics carvedilol and telmisartan.. Repeat echocardiogram in 2 to 3 months. Cardiology recommended to start Eliquis prior to discharge. Full code (2) CHF exacerbation: Continue home medicine carvedilol 25 mg p.o. twice daily hold if blood pressure less than 120/80 and if heart rate less than 60. Continue amiodarone 200 mg p.o. every morning Continue telmisartan 160 mg p.o. every morning, hold if blood pressure less than 120/80 (3) Pneumonia: as noted above. will continue ceftriaxone and doxy, however likely main culprit is fluid overload. (4) Dyslipidemia: Continue atorvastatin 80 mg p.o. daily. Lipid panel:pending (5) Hypertension: As the above, hold home agents if blood pressure was 120/80 (6) NSTEMI (non-ST elevated myocardial infarction): resolved (7) Acute on chronic systolic (congestive) heart failure: As noted above. EF is 35% Will continue ramiro inhibitor and diuretic Meet with family , all questions answered. Spent 60 minutes in management of patient. Total Time Total Time Spent Total Time Spent (In Minutes): 35 minutes total time spent is greater than 50% in coordination of care (as documented) at patient's floor/unit and/or counseling patient/family discussion of care with nursing staff Discharge Plan Discharge Items Patient Disposition: Home - Self-Care Reason For Visit: PNEUMONIA,CLL,CHF Discharge Diagnosis: Acute shortness of breath with hypoxemia below Community-acquired pneumonia Acute on chronic systolic congestive heart failure, resolved Suspected obstructive sleep apnea COPD exacerbation Condition: Good Discharge Goals: Decrease discomfort and Improve function Activity: Resume your previous activity Lifting: Gradually increase as tolerated Bathing: No limitations Sexual Activity: When tolerated Exercise/Sports: Wait until after follow-up appointment Driving/Machine Use: Resume 3 days after discharge Weightbearing: Full weightbearing Non-emergency contact: Primary Care Provider Call non-emergency contact if: you have any medication questions, your symptoms worsen and your temperature is above 100.5 Follow-up/Referrals: Tatiana Ch PA-C [Physician Steam Press Tender] - 05/19/19 10:30 am (Please, follow up at [facility] Cardiology Office / CHF Clinic with Kortney Ch PA-C on WednesdayMay 19 at 10:30 am. *The office is located in [address] of [facility]. This is the big [facility]. If you need to change this appointment, call the office at [phone].) Mary Jane Cruz DO [Primary Care Provider] - 05/22/19 11:20 am (Persistent leukocytosis, consider follow-up with vehicle body sander Please, follow up with Dr. Mary Jane Cruz on WednesdayMay 22 at 11:20 am. *If you need to change this appointment, call the office at [phone].) Diet: Low Sodium (2gm) Fluids: 1500ml (6 cups) Addtl Provider Instructions: You have suspected obstructive sleep apnea Please do sleep study as an outpatient Follow-up with your vehicle body sander on your elevated white blood cell count as it is slightly higher than baseline. Prescriptions: New carvedilol 25 mg Tablet 25 mg PO BID Qty: 60 RF: 1 doxycycline hyclate 100 mg Capsule 100 mg PO BID 4 Days Qty: 8 RF: 0 telmisartan 40 mg Tablet 40 mg PO QAM Qty: 30 RF: 1 nitroglycerin [Nitrostat] 0.4 mg Tablet, Sublingual 0.4 mg sublingual UD PRN (Reason: Chest Pain) Qty: 25 RF: 0 diclofenac sodium [Voltaren] 1 % Gel 1 applic topical QID PRN (Reason: Pain) 10 Days Qty: 60 RF: 0 Eliquis 5 mg Tablet 5 mg PO BID Qty: 60 RF: 2 furosemide 40 mg tablet 40 mg PO BID PRN (Reason: edema) Qty: 60 RF: 0 cefdinir 250 mg/5 mL suspension for reconstitution 300 mg PO BID 5 Days Qty: 60 RF: 0 Lactobacillus acidophilus capsule 2 cap PO QID Qty: 60 RF: 0 prednisone 10 mg tablet 10 mg PO DIRECTED Qty: 11 RF: 0 Continued atorvastatin [Lipitor] 80 mg Tablet 80 mg PO HS RF: 0 amiodarone 200 mg Tablet 200 mg PO QAM RF: 0 potassium chloride 10 mEq Tablet Extended Release 10 meq PO BID RF: 0 albuterol sulfate 90 mcg/actuation Hfa Aerosol Inhaler 1 puff INHALATION Q6H PRN (Reason: Shortness Of Breath) RF: 0 Breo Ellipta inhaler 1 inh inhalation DAILY RF: 0 citalopram 20 mg Tablet 20 mg PO DAILY RF: 0 lorazepam 0.5 mg Tablet 0.5 mg BUCCAL BID PRN (Reason: Anxiety) RF: 0 fluticasone propionate 50 mcg/actuation spray,suspension 1 spray intranasal DAILY RF: 0 metformin 500 mg tablet extended release 24 hr 500 mg PO QAM RF: 0 Discontinued torsemide 20 mg Tablet 20 mg PO QAM RF: 0 telmisartan 80 mg Tablet 80 mg PO QAM RF: 0 carvedilol 6.25 mg Tablet 6.25 mg PO TID RF: 0 warfarin [Jantoven] 2.5 mg tablet 2.5 mg PO DAILY RF: 0 Stand-Alone Forms: [facility] Discharge Orders: Discharge Order (Routine); Ordered 05/16/19 Ordered By: Constance Hart Admission Data Admit Date/Time: 05/12/19 20:13 Attending Provider: Constance Marshall Admit Provider: Christen Christian Primary Care Provider: Mary Jane Cruz Other Providers: Rigo Robison ; Jarod Ford Service: Intensive Care Unit Other Interventions: Discharge Summary Assessment (RN) Last Done: 05/16/19 15:31 DC Date/Time DO NOT enter until pt leaves facility: 05/16/19 16:23
== END 2019-05-16 16:23 | disposition home or self-care (01) | DRG 280 ==
LOC: SUATTDRO 20:13 → 1E 20:13 → 2E 05-13 14:02

== ENCOUNTER 2019-05-23 09:09 | Inpatient (IN) ==
[2019-05-23 10:04] LABS: INR 1.2 (0.9-1.1); Prothrombin Time 11.8 Seconds (9.0-12.0)
[2019-05-23 10:06] LABS: Hematocrit (blood only) 33.5 % (37-47); Hemoglobin 10.4 g/dL (12.0-16.0); Mean Platelet Volume 10.9 fL (7.4-10.4); Platelet Count 255 K/uL (130-400); RDW Coefficient of Variation 14.5 % (11.5-14.5); Red Blood Count 3.22 M/uL (4.2-5.4); White Blood Count 48.02 K/uL (4.8-10.8)
[2019-05-23 10:08] LABS: Albumin Level 3.1 gm/dl (3.4-5.0); BUN Creatinine Ratio 20.4 (10-20); Bilirubin Direct 0.2 mg/dl (0-0.2); Calcium 8.6 mg/dl (8.5-10.1); Creatinine Clr Calc Pharmacy 51.7 ml/min; Est GFR (African American) 54.5; Magnesium 1.8 mg/dl (1.8-2.4); Potassium 3.6 mmol/L (3.5-5.1)
[2019-05-23 10:20] LABS: Albumin Globulin Ratio 0.9 (0.9-2); Bilirubin,Total 1.1 mg/dl (0.2-1); Globulin 3.5 gm/dl (2.5-4.0); Phosphorus 2.9 mg/dl (2.5-4.9); Total Protein 6.6 gm/dl (6.4-8.2); Troponin I 0.185 ng/ml (0-0.045)
--- NOTE | 2019-05-23 10:37 | XRay Report ---
XR chest 1V portable CLINICAL HISTORY: Chest pain. COMPARISON STUDY: Chest CT January 05, 2018. Chest radiograph May 13, 2019. FINDINGS: Severe osteoarthritis of the left glenohumeral joint is incidentally noted. There is no pne umothorax. Bibasilar opacities are noted. There is interstitial thickening. Cardiomegaly is unchanged . No definite pleural effusion is identified. IMPRESSION: 1. Interstitial thickening suggestive of mild pulmonary edema. 2. Hazy bibasilar opacities which may reflect pneumonia, atelectasis or overlying soft tissue artifac t. Radiographic follow up is recommended. Electronically signed by: Giovanni Dixon M.D. 05/23/2019 10:36 AM
[2019-05-23] MEDS ORDERED: FUROSEMIDE 40 MG/4 ML VIAL IV STA (10:57)
[2019-05-23] MEDS ORDERED: POTASSIUM CHLORIDE 20 MEQ TABCR PO STA (10:57)
[2019-05-23 11:16] LABS: Basophils # (auto) 0.05 K/uL (0-0.2); Basophils % (auto) 0.1 %; Eosinophils # (auto) 0.21 K/uL (0-0.5); Eosinophils % (auto) 0.4 %; Immature Granulocytes # (auto) 0.21 K/uL (0.00-0.02); Immature Granulocytes % (auto) 0.4 %; Lymphocytes # (auto) 33.42 K/uL (1.2-3.4); Lymphocytes % (auto) 69.6 %; Monocytes # (auto) 1.25 K/uL (0.11-0.59); Monocytes % (auto) 2.6 %; Neutrophils # (auto) 12.88 K/uL (1.4-6.5); Neutrophils % (auto) 26.9 %; Smudge Cells Present
[2019-05-23 12:12] LABS: Appearance Urine Clear (Clear); Bacteria Urine Automated Negative (Negative); Bilirubin Urine Negative (Negative); Blood Urine Negative (Negative); Color Urine Yellow; Glucose Urine UA Negative (Negative); Ketones Urine Negative (Negative); Leukocyte Esterase Urine Trace (Negative); Nitrite Urine Negative (Negative); Protein Urine Negative (Negative); RBC Urine Automated 0-4 /hpf (0-4); Specific Gravity Urine 1.017 (1.000-1.030); Urobilinogen Urine Negative (Negative)
--- NOTE | 2019-05-23 14:51 | History & Physical Report ---
Date of Service May 23, 2019 Assessment & Plan (1) Acute on chronic systolic (congestive) heart failure: -Admit to PCU -IV Lasix administered in the ER, 40 mg IV, will re-dose with a second 40 mg IV at 2000 -Strict I's and O's, daily weights, place echeverria catheter, fluid restriction of 1500 mL -Likely secondary to increased water consumption with taking doxycycline QID and drinking 16 oz water with each dose. -Last echo completed during previous admission with EF of 30% -Deconditioning likely adding to her hypoxia from the previous hospital stay -PT/OT consults (2) Ischemic cardiomyopathy: -Continue telmisartan 40 mg QAM, carvedilol 25 mg BID, atorvastatin 80 mg HS, amiodarone 200 mg QAM (3) PAF (paroxysmal atrial fibrillation): - Cont Eliquis 5 mg BID (4) NSTEMI (non-ST elevated myocardial infarction): - hx of such during last admission - continue medical management - Outpt echo to be obtained in 2-3 months for continued management - follows with [facility] cardiology (5) Acute respiratory failure with hypoxia: - Secondary to acute CHF exacerbation - O2 sats drop at bedside with speaking, actively diuresing (6) Pneumonia: - Continue doxycycline IV for now as pt reports still has 2-3 days of this left at home - Continue probiotic - Recently finished cefdinir and prednisone taper. - Unlikely the cause of her hypoxia at this time, as likely fluid overload as she has diuresed well since getting initial dose of IV lasix. (7) Hypertension: - BP stable, continue antihypertensives as above. (8) Dyslipidemia: - Cont statin therapy (9) GERD (gastroesophageal reflux disease): - Continue (10) Migraine headache: - Stable (11) Depression: - Continue citalopram (12) CLL (chronic lymphocytic leukemia): - Chronic, diagnosed 8 years ago - Follows with [facility] - continue as outpatient - This would explain elevated WBC of 48K and increased lymphocytes on cbc diff. - Pt was on prednisone taper recently for pna which may have elevated this slightly as well. Monitor with cbc (13) DVT prophylaxis: - teds, eliquis Dispo: From home, PT.OT, likely to be in the hospital for 1-2 days. History of Present Illness Primary Care Provider: Mary Jane L Nancy, DO This is a 73 yo F with PMHx of HTN, HLD, CAD, A. fib on Eliquis, acute on chronic systolic CHF, history of NSTEMI, COPD, GERD, depression, migraine headache who was recently admitted to our facility from 05/12/2019 to 05/16/19 as a direct transfer from [facility] for acute on chronic CHF exacerbation, pneumonia and developed an NSTEMI secondary to those during her stay. Patient notes that she has been at home for approximately 1 week. She has been taking all her medications as instructed. Patient states that she has been taking doxycycline and Cefdinir to finish course of antibiotic for pneumonia, however requires drinking 16 ounces of water for each dose of doxycycline which is 4 times daily. She has been taking her Lasix 40 mg daily as prescribed. Patient notes this morning she developed worsening shortness of breath with speaking, progressive orthopnea although she never lies flat to sleep and uses a recliner, and dyspnea with minimal exertion. She admits to having intermittent chills but denies fevers. She states that because her keeps the air conditioner on all the time. She also notes that she had diarrhea for the past 3 days, but got a yogurt with probiotic in it and reports this seems to help things. Otherwise patient denies any acute complaints. Her daughter and grandson are present at bedside. Allergies Allergy/AdvReac Type Severity Reaction Status Date / Time bee venom protein (honey bee) Allergy Severe Anaphylaxis Verified 05/23/19 09:44 Penicillins Allergy Mild Rash Verified 05/23/19 09:44 Sulfa (Sulfonamide Allergy Mild Rash Verified 05/23/19 09:44 Antibiotics) Home Medications Home Medications Medication Instructions Recorded Confirmed Type albuterol sulfate 1 puff INHALATION Q6H PRN 03/10/19 05/23/19 History amiodarone 200 mg PO QAM 03/10/19 05/23/19 History atorvastatin [Lipitor] 80 mg PO HS 03/10/19 05/23/19 History potassium chloride 10 meq PO BID 03/10/19 05/23/19 History citalopram 20 mg PO QAM 05/12/19 05/23/19 History fluticasone propionate 1 spray INTRANASAL QAM 05/12/19 05/23/19 History lorazepam 0.5 mg BUCCAL BID PRN 05/12/19 05/23/19 History metformin 500 mg PO QAM 05/12/19 05/23/19 History Lactobacillus acidophilus 2 cap PO QID #60 cap 05/16/19 05/23/19 Rx apixaban [Eliquis] 5 mg PO BID #60 tab 05/16/19 05/23/19 Rx carvedilol 25 mg PO BID #60 tab 05/16/19 05/23/19 Rx furosemide 40 mg PO BID PRN #60 tab 05/16/19 05/23/19 Rx nitroglycerin [Nitrostat] 0.4 mg SUBLINGUAL UD PRN #25 tab 05/16/19 05/23/19 Rx telmisartan 40 mg PO QAM #30 tab 05/16/19 05/23/19 Rx fluticasone furoate-vilanterol 1 inh INHALATION DAILY 05/23/19 05/23/19 History [Codey Bermeo] Past Med/Surg History Medical History Anxiety Asthma inhaler daily/prn Atrial fibrillation Depression Diabetes mellitus, type 2 Hearing deficit History of colon polyps Hyperlipidemia Hypertension Leukemia just monitoring Myocardial Infarction 2010 Nausea and vomiting after administration of anesthetic agent On anticoagulant therapy coumadin daily Osteoarthritis Spinal stenosis Stroke x3 ?----no neurologist, left arm weakness, uses cane to ambulate Surgical History History of bilateral breast reduction surgery History of colonoscopy History of dilatation and curettage x3 History of laparoscopy History of phacoemulsification of cataract of both eyes with intraocular lens implantation History of right breast biopsy x3--benign History of total left knee replacement (TKR) Family History Mother Family history of diabetes mellitus Family/Other Family history of diabetes mellitus cousin Other No family history of adverse response to anesthesia Social History Preferred Language: Martiniquais Communication Ability: Effective Waste Machine Tender Required: No Beliefs That Will Affect Care: None Current Living Situation: Spouse Current Living Situation Comment: house Feels Safe at Home: No Is there a partner from a previous relationship who is making you feel unsafe now?: No Any Concerns about Your Family Situation: Yes Would You Like to Speak to Someone About Your Situation: No Safety Concerns: Feels Safe At This Time Smoking Status: Unknown if ever smoked Hx Alcohol Use: Yes Alcohol type: wine Hx Substance Use: No Review of Systems Review of Systems: Constitutional: No fever, sweats or chills Eyes: No diplopia, no worsening or blurred vision ENT: normal hearing, no trouble swallowing Respiratory: As per HPI. + minimal dry cough, no sputum. Cardiovascular: No chest pain, tightness. Patient admits to palpitations upon walking in the ER. Abdomen: No pain, +nausea ealier today but now resolve, no constipation Musculoskeletal: No joint pain, calf pain, swelling Neurologic: + generalized weakness, numbness/tingling, or balance problems Psychiatric: No anxiety or depression Skin: No rash or itch Physical Exam Physical Exam: General: awake, alert, no apparent distress, + obese Head: Normocephalic, atraumatic ENT: PERRL, EOMI, no pharyngeal exudate, mucous membranes moist Chest: Diffuse crackles at bases, working to breathe with long sentences, O2 sats dropped to 90% while speaking on room air, no wheeze Cardiac: Regular rate and rhythm, soft DEBRA, no JVD, normal peripheral pulses, good capillary refill Abdominal: NABS x 4 quadrants, soft, nontender to palpation, no rebound, guarding or tenderness Extremities: + Peripheral edema BLE 1+ up to the middle of the shins bilaterally, + chronic venous stasis changes, no erythema, calfs nontender to palpation Psych: Normal mood and affect Neuro: AAO x 3, no motor deficits, speech is clear Results & Data Vital Signs (Past 12 Hours) Vital Signs Temp Pulse Resp Resp BP BP Pulse Ox 05/23/19 14:06 24 05/23/19 12:00 100 H 23 98 05/23/19 11:54 73 25 H 94 05/23/19 11:40 62 21 98 05/23/19 11:30 61 20 141/77 H 98 05/23/19 11:20 67 26 H 96 05/23/19 11:10 69 20 97 05/23/19 11:00 60 18 136/73 98 05/23/19 10:50 60 17 96 05/23/19 10:40 60 21 97 05/23/19 10:30 66 17 136/91 96 05/23/19 10:20 57 L 27 H 97 05/23/19 10:13 98 05/23/19 10:11 26 H 130/60 98 05/23/19 10:10 57 L 19 98 05/23/19 10:00 57 L 18 130/66 100 05/23/19 09:50 57 L 23 97 05/23/19 09:40 57 L 23 96 05/23/19 09:30 57 L 21 118/64 98 05/23/19 09:21 37.3 C 67 24 115/66 92 05/23/19 09:20 66 23 98 05/23/19 09:18 74 26 H 115/66 97 Pulse Ox 05/23/19 14:06 98 05/23/19 12:00 05/23/19 11:54 05/23/19 11:40 05/23/19 11:30 05/23/19 11:20 05/23/19 11:10 05/23/19 11:00 05/23/19 10:50 05/23/19 10:40 05/23/19 10:30 05/23/19 10:20 05/23/19 10:13 05/23/19 10:11 05/23/19 10:10 05/23/19 10:00 05/23/19 09:50 05/23/19 09:40 05/23/19 09:30 05/23/19 09:21 05/23/19 09:20 05/23/19 09:18 Diagnostic Findings XR chest 1V portable CLINICAL HISTORY: Chest pain. COMPARISON STUDY: Chest CT January 05, 2018. Chest radiograph May 13, 2019. FINDINGS: Severe osteoarthritis of the left glenohumeral joint is incidentally noted. There is no pneumothorax. Bibasilar opacities are noted. There is interstitial thickening. Cardiomegaly is unchanged. No definite pleural effusion is identified. IMPRESSION: 1. Interstitial thickening suggestive of mild pulmonary edema. 2. Hazy bibasilar opacities which may reflect pneumonia, atelectasis or ove rlying soft tissue artifact. Radiographic follow up is recommended. ECG Additional Comments: 23-MAY-2019 09:17:10 [facility]-EDSTAT ROUTINE RETRIEVAL Poor data quality, interpretation may be adversely affected Normal sinus rhythm ST & T wave abnormality, consider lateral ischemia Abnormal ECG Confirmed by Edgardo Sanders ([id number]) on 05/23/2019 1:55:05 PM 25mm/s 10mm/mV 150Hz 9.0.9 12SL 241 TABITHA: 13 Confirmed By: Edgardo Sanders Vent. rate 60 BPM VT interval 186 ms QRS duration 106 ms QT/QTc 444/444 ms P-R-T axes 38 27 145 Code Status & VTE Plan Code Status Full code-discussed with patient and family at bedside Supervising Physician Co-Signing Physician Notes Patient seen and examined, chart reviewed, case discussed with CARRIE Romero and I agree with her assessment and plan as documented above. Briefly, patient is a 73yo C female presenting with SOB, weight gain 213# --> 217#. Patient with known CHF, last EF of 35%. Patient was recently hospitalized with PNA and NSTEMI. She was sent home on antibiotics which she has been taking as prescribed. She has increased her fluid intake recently with her new medications. On exam she is afebrile, HD stable, NAD. Mildly tachypneic with conversational dyspnea HEENT - NC/AT, PERRL, EOMI, MMM, neck supple Heart - +S1/S2, regular Lungs - diminished in bases, faint crackles Abd - +BS, soft, NT/ND Ext - warm, 1+ pitting edema with chronic venous stasis skin changes present Assessment/Plan: 73yo C female presenting with SOB, weight gain, presumed exacerbation of CHF -Lasix 40mg IV given in ER. Will closely monitor I/Os, redose if needed. Goal negative 1.5L -Remainder of plan as above PG Care Time/CCT Total # of Minutes Spent Total Time Spent with Patient: Total time spent is greater than 50% in coordination of care (as documented) at patient's floor/unit and/or counseling patient:
[2019-05-23] MEDS ORDERED: ACETAMINOPHEN 325 MG TAB PO PRN (15:18)
[2019-05-23] MEDS ORDERED: ONDANSETRON INJ 2 MG/ML 2 ML VIAL IV PRN (15:18)
--- NOTE | 2019-05-23 16:25 | Emergency Department Note ---
Entered by Renato Cruz acting as a scribe for History of Present Illness General Chief complaint: Shortness of Breath/Dyspnea Stated complaint: sob Time Seen by Provider: 05/23/19 09:39 Source: patient History of Present Illness Provider complaint: shortness of breath Onset (ago): hour(s) 3 Location: chest Pain Consistency: + intermittent Maximum Pain Intensity: 4 Relieved By: + none Exacerbated By: + movement Associated symptoms: + denies other symptoms The patient is a 73 y/o female with a history of heart attack, CHF, and pneumonia,, who presents to the emergency department for evaluation of an intermittent shortness of breath that began three hours ago. The patient states that she does not usually use oxygen though she has been using her husbands oxygen at home. She states that she was not feeling well last night but this morning began the breathing issues. The patient reports that she was released from the hospital one week ago for a heart attack, pneumonia, and CHF. She denies any other symptoms. Home Medications Home Medications Medication Instructions Recorded Confirmed Type albuterol sulfate 1 puff INHALATION Q6H PRN 03/10/19 05/23/19 History amiodarone 200 mg PO QAM 03/10/19 05/23/19 History atorvastatin [Lipitor] 80 mg PO HS 03/10/19 05/23/19 History potassium chloride 10 meq PO BID 03/10/19 05/23/19 History citalopram 20 mg PO QAM 05/12/19 05/23/19 History fluticasone propionate 1 spray INTRANASAL QAM 05/12/19 05/23/19 History lorazepam 0.5 mg BUCCAL BID PRN 05/12/19 05/23/19 History metformin 500 mg PO QAM 05/12/19 05/23/19 History Lactobacillus acidophilus 2 cap PO QID #60 cap 05/16/19 05/23/19 Rx apixaban [Eliquis] 5 mg PO BID #60 tab 05/16/19 05/23/19 Rx carvedilol 25 mg PO BID #60 tab 05/16/19 05/23/19 Rx furosemide 40 mg PO BID PRN #60 tab 05/16/19 05/23/19 Rx nitroglycerin [Nitrostat] 0.4 mg SUBLINGUAL UD PRN #25 tab 05/16/19 05/23/19 Rx telmisartan 40 mg PO QAM #30 tab 05/16/19 05/23/19 Rx fluticasone furoate-vilanterol 1 inh INHALATION DAILY 05/23/19 05/23/19 History [Breo Najmata] Allergies Allergy/AdvReac Type Severity Reaction Status Date / Time bee venom protein (honey bee) Allergy Severe Anaphylaxis Verified 05/23/19 09:44 Penicillins Allergy Mild Rash Verified 05/23/19 09:44 Sulfa (Sulfonamide Allergy Mild Rash Verified 05/23/19 09:44 Antibiotics) Past Med/Surg History Medical History Anxiety Asthma inhaler daily/prn Atrial fibrillation Depression Diabetes mellitus, type 2 Hearing deficit History of colon polyps Hyperlipidemia Hypertension Leukemia just monitoring Myocardial Infarction 2010 Nausea and vomiting after administration of anesthetic agent On anticoagulant therapy coumadin daily Osteoarthritis Spinal stenosis Stroke x3 ?--2010/2011--no neurologist, left arm weakness, uses cane to ambulate Surgical History History of bilateral breast reduction surgery History of colonoscopy History of dilatation and curettage x3 History of laparoscopy History of phacoemulsification of cataract of both eyes with intraocular lens implantation History of right breast biopsy x3--benign History of total left knee replacement (TKR) Family History Mother Family history of diabetes mellitus Family/Other Family history of diabetes mellitus cousin Other No family history of adverse response to anesthesia Social History Preferred Language: Guinean Communication Ability: Effective 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 and A total of 10 systems reviewed and were otherwise negative Physical Exam Vital Signs Vital Signs - 24 hr 05/23/19 09:18 05/23/19 09:20 05/23/19 09:21 Temperature 37.3 C Temperature Source Oral Sepsis Recent Fever Within 48 Hours No Sepsis Action Taken by Nursing No Action Required Pulse Rate 74 66 67 Pulse Rate from SpO2 Sensor 63 61 Pulse Rhythm Regular Respiratory Rate 26 H 23 24 Respiratory Rate [Exercises] Respiratory Effort / Characteristics Non-Labored Respiratory Depth Normal Blood Pressure 115/66 115/66 Blood Pressure [Right Arm] Blood Pressure Mean 82 82 Blood Pressure Mean [Right Arm] Pulse Oximetry 97 98 92 Pulse Oximetry [Exercises] Oxygen Delivery Method Room Air Oxygen Flow Rate 05/23/19 09:30 05/23/19 09:40 05/23/19 09:50 Temperature Temperature Source Sepsis Recent Fever Within 48 Hours Sepsis Action Taken by Nursing Pulse Rate 57 L 57 L 57 L Pulse Rate from SpO2 Sensor 57 L 57 L 57 L Pulse Rhythm Respiratory Rate 21 23 23 Respiratory Rate [Exercises] Respiratory Effort / Characteristics Respiratory Depth Blood Pressure 118/64 Blood Pressure [Right Arm] Blood Pressure Mean 82 Blood Pressure Mean [Right Arm] Pulse Oximetry 98 96 97 Pulse Oximetry [Exercises] Oxygen Delivery Method Nasal Cannula Oxygen Flow Rate 2 05/23/19 10:00 05/23/19 10:10 05/23/19 10:11 Temperature Temperature Source Sepsis Recent Fever Within 48 Hours Sepsis Action Taken by Nursing Pulse Rate 57 L 57 L Pulse Rate from SpO2 Sensor 57 L 57 L Pulse Rhythm Respiratory Rate 18 19 26 H Respiratory Rate [Exercises] Respiratory Effort / Characteristics Respiratory Depth Normal Blood Pressure 130/66 Blood Pressure [Right Arm] 130/60 Blood Pressure Mean 87 Blood Pressure Mean [Right Arm] 83 Pulse Oximetry 100 98 98 Pulse Oximetry [Exercises] Oxygen Delivery Method Nasal Cannula Oxygen Flow Rate 2 05/23/19 10:13 05/23/19 10:20 05/23/19 10:30 Temperature Temperature Source Sepsis Recent Fever Within 48 Hours Sepsis Action Taken by Nursing Pulse Rate 57 L 66 Pulse Rate from SpO2 Sensor 57 L 58 L Pulse Rhythm Respiratory Rate 27 H 17 Respiratory Rate [Exercises] Respiratory Effort / Characteristics Respiratory Depth Blood Pressure 136/91 Blood Pressure [Right Arm] Blood Pressure Mean 106 Blood Pressure Mean [Right Arm] Pulse Oximetry 98 97 96 Pulse Oximetry [Exercises] Oxygen Delivery Method Nasal Cannula Oxygen Flow Rate 2 05/23/19 10:40 05/23/19 10:50 05/23/19 11:00 Temperature Temperature Source Sepsis Recent Fever Within 48 Hours Sepsis Action Taken by Nursing Pulse Rate 60 60 60 Pulse Rate from SpO2 Sensor 60 59 L 59 L Pulse Rhythm Respiratory Rate 21 17 18 Respiratory Rate [Exercises] Respiratory Effort / Characteristics Respiratory Depth Blood Pressure 136/73 Blood Pressure [Right Arm] Blood Pressure Mean 94 Blood Pressure Mean [Right Arm] Pulse Oximetry 97 96 98 Pulse Oximetry [Exercises] Oxygen Delivery Method Oxygen Flow Rate 05/23/19 11:10 05/23/19 11:20 05/23/19 11:30 Temperature Temperature Source Sepsis Recent Fever Within 48 Hours Sepsis Action Taken by Nursing Pulse Rate 69 67 61 Pulse Rate from SpO2 Sensor 70 67 60 Pulse Rhythm Respiratory Rate 20 26 H 20 Respiratory Rate [Exercises] Respiratory Effort / Characteristics Respiratory Depth Blood Pressure 141/77 H Blood Pressure [Right Arm] Blood Pressure Mean 98 Blood Pressure Mean [Right Arm] Pulse Oximetry 97 96 98 Pulse Oximetry [Exercises] Oxygen Delivery Method Oxygen Flow Rate 05/23/19 11:40 05/23/19 11:54 05/23/19 12:00 Temperature Temperature Source Sepsis Recent Fever Within 48 Hours Sepsis Action Taken by Nursing Pulse Rate 62 73 100 H Pulse Rate from SpO2 Sensor 61 73 106 H Pulse Rhythm Respiratory Rate 21 25 H 23 Respiratory Rate [Exercises] Respiratory Effort / Characteristics Respiratory Depth Blood Pressure Blood Pressure [Right Arm] Blood Pressure Mean Blood Pressure Mean [Right Arm] Pulse Oximetry 98 94 98 Pulse Oximetry [Exercises] Oxygen Delivery Method Oxygen Flow Rate 05/23/19 14:06 Temperature Temperature Source Sepsis Recent Fever Within 48 Hours Sepsis Action Taken by Nursing Pulse Rate Pulse Rate from SpO2 Sensor Pulse Rhythm Respiratory Rate Respiratory Rate [Exercises] 24 Respiratory Effort / Characteristics Respiratory Depth Blood Pressure Blood Pressure [Right Arm] Blood Pressure Mean Blood Pressure Mean [Right Arm] Pulse Oximetry Pulse Oximetry [Exercises] 98 Oxygen Delivery Method Room Air Oxygen Flow Rate GENERAL: Awake, alert, chronically ill appearing, in no distress HENT: Normocephalic, atraumatic. Oropharynx with dry mucous membranes and otherwise unremarkable. EYES: Normal conjunctiva. Sclera non-icteric. NECK: Supple. No nuchal rigidity. FROM. Mild JVD. RESPIRATORY: Diminished breath sounds at base with intermittent wheeze, otherwise clear. CARDIAC: Regular rate, normal rhythm. Extremities warm and well perfused. Pulses equal. ABDOMEN: Soft, non-distended. No tenderness to palpation. No rebound or guarding. No masses. RECTAL: Deferred. MUSCULOSKELETAL: Chest examination reveals no tenderness. The back is symmetrical on inspection without obvious abnormality. There is no CVA tenderness to palpation. No joint edema. LOWER EXTREMITIES: Calves are equal size bilaterally and non-tender. 1+ bilat eral edema. No discoloration. NEURO: Normal sensorium. No sensory or motor deficits noted. SKIN: No rash or jaundice noted. Course 0950: Past medical records reviewed. The patient was evaluated in room B03. A complete history and physical exam was performed. 1151: I checked on the patient. 1428: I checked on the patient and she states that she is weak and is not feeling very well. 1435: [facility] She will evaluate for further management. Administered Medications Apixaban (Eliquis) 5 mg PO BID VINAYAK Stop: 06/22/19 20:59 Last Admin: 05/23/19 20:38 Dose: 5 mg Documented by: [id number] Atorvastatin Calcium (Lipitor) 80 mg PO HS VINAYAK Stop: 06/22/19 20:59 Last Admin: 05/23/19 20:38 Dose: 80 mg Documented by: [id number] Carvedilol (Coreg) 25 mg PO BID VINAYAK Stop: 06/22/19 20:59 Last Admin: 05/23/19 20:38 Dose: 25 mg Documented by: [id number] Doxycycline Hyclate 100 mg/ (Dextrose) 110 mls @ 50 mls/hr IV BID VINAYAK; Protocol Stop: 05/30/19 20:59 Last Infusion: 05/23/19 22:50 Dose: 0 mls/hr Documented by: [id number] Admin: 05/23/19 20:38 Dose: 50 mls/hr Documented by: [id number] Insulin Aspart (Novolog Flexpen) 0 units SC ACHS VINAYAK Stop: 06/22/19 20:59 Last Admin: 05/23/19 20:57 Dose: 4 units Documented by: [id number] Cosigned by: [id number] Insulin Glargine (Lantus Solostar Pen) 7 units SC BID VINAYAK Stop: 06/22/19 20:59 Last Admin: 05/23/19 20:58 Dose: 7 units Documented by: [id number] Cosigned by: [id number] Lorazepam (Ativan) 0.5 mg SL BID PRN PRN Reason: Anxiety Stop: 06/22/19 17:15 Last Admin: 05/23/19 21:01 Dose: 0.5 mg Documented by: [id number] Miscellaneous (Order Awaiting Action) 1 ea N/A QS VINAYAK Stop: 06/23/19 00:00 Last Admin: 05/24/19 00:19 Dose: Not Given Documented by: [id number] Potassium Chloride (Klor-Con M10) 10 meq PO BID VINAYAK Stop: 06/22/19 20:59 Last Admin: 05/23/19 20:38 Dose: 10 meq Documented by: [id number] Discontinued Medications Furosemide (Lasix) 40 mg IV NOW STA Stop: 05/23/19 10:58 Last Admin: 05/23/19 11:02 Dose: 40 mg Documented by: [id number] Furosemide 40 mg/ Syringe 4 mls @ 4 mls/min IV ONE ONE Stop: 05/23/19 20:01 Last Admin: 05/23/19 20:34 Dose: 4 mls/min Documented by: [id number] Potassium Chloride (Klor-Con M20) 40 meq PO NOW STA Stop: 05/23/19 10:58 Last Admin: 05/23/19 11:02 Dose: 40 meq Documented by: [id number] Medical Decision Making Differential Diagnosis Differential diagnosis: Etiologies such as infections, reactive airway disease, COPD, pneumonia, pleural effusion, pulmonary edema, ARDS, pneumothorax, CHF, cardiac ischemia, cardiac tamponade, dysrhythmia, anemia, pulmonary embolism, musculoskeletal, gastrointestinal process, as well as others were entertained. Medical Records Attestation: I reviewed the patient's medical records. Home Medications Current Medication List: was personally reviewed by me Laboratory Data Attestation: I reviewed the patient's lab results. Result diagrams: 05/23/19 09:10 05/23/19 09:10 Lab Results 05/23/19 05/23/19 05/23/19 Range/Units 09: 09: 09:10 WBC 48.02 H* (4.8-10.8) K/uL RBC 3.22 L (4.2-5.4) M/uL Hgb 10.4 L (12.0-16.0) g/dL Hct 33.5 L (37-47) % MCV 104.0 H (80-100) fL MCH 32.3 (25-34) pg MCHC 31.0 L (32-36) g/dL RDW Std Deviation 55.0 H (36.4-46.3) fL RDW Coeff of Nino 14.5 (11.5-14.5) % Plt Count 255 (130-400) K/uL MPV 10.9 H (7.4-10.4) fL Immature Gran % (Auto) 0.4 % Neut % (Auto) 26.9 % Lymph % (Auto) 69.6 % Sumner % (Auto) 2.6 % Eos % (Auto) 0.4 % Baso % (Auto) 0.1 % Immature Gran # (Auto) 0.21 H (0.00-0.02) K/uL Neut # (Auto) 12.88 H (1.4-6.5) K/uL Lymph # (Auto) 33.42 H (1.2-3.4) K/uL Sumner # (Auto) 1.25 H (0.11-0.59) K/uL Eos # (Auto) 0.21 (0-0.5) K/uL Baso # (Auto) 0.05 (0-0.2) K/uL Smudge Cells Present PT 11.8 (9.0-12.0) Seconds INR 1.2 H (0.9-1.1) Sodium 141 (136-145) mmol/L Potassium 3.6 (3.5-5.1) mmol/L Chloride 105 (98-107) mmol/L Carbon Dioxide 27 (21-32) mmol/L Anion Gap 9.0 (3-11) BUN 23 H (7-18) mg/dl Creatinine 1.14 (0.6-1.2) mg/dl Est Cr Clr Drug Dosing 51.7 ml/min Est GFR ( Amer) 54.5 Est GFR (Non-Af Amer) 47.0 BUN/Creatinine Ratio 20.4 H (10-20) Glucose 211 H (70-99) mg/dl Calcium 8.6 (8.5-10.1) mg/dl Phosphorus 2.9 (2.5-4.9) mg/dl Magnesium 1.8 (1.8-2.4) mg/dl Total Bilirubin 1.1 H (0.2-1) mg/dl Direct Bilirubin 0.2 (0-0.2) mg/dl AST 17 (15-37) U/L ALT 54 (12-78) U/L Alkaline Phosphatase 100 (45-117) U/L Troponin I 0.185 H* (0-0.045) ng/ml NT-Pro-B Natriuret Pep 9502 H (0-900) pg/ml Total Protein 6.6 (6.4-8.2) gm/dl Albumin 3.1 L (3.4-5.0) gm/dl Globulin 3.5 (2.5-4.0) gm/dl Albumin/Globulin Ratio 0.9 (0.9-2) Lipase 224 (73-393) U/L TSH 2.250 (0.300-4.500) uIu/ml Urine Color Urine Appearance (Clear) Urine pH (4.5-7.5) Ur Specific [place] (1.000-1.030) Urine Protein (Negative) Urine Glucose (UA) (Negative) Urine Ketones (Negative) Urine Blood (Negative) Urine Nitrite (Negative) Urine Bilirubin (Negative) Urine Urobilinogen (Negative) Ur Leukocyte Esterase (Negative) Urine WBC (Auto) (0-5) /hpf Urine RBC (Auto) (0-4) /hpf U Hyaline Cast (Auto) (0-5) /lpf U Epithel Cells (Auto) (0-5) /lpf Urine Bacteria (Auto) (Negative) 05/23/19 05/23/19 Range/Units 11:50 11:55 WBC (4.8-10.8) K/uL RBC (4.2-5.4) M/uL Hgb (12.0-16.0) g/dL Hct (37-47) % MCV (80-100) fL MCH (25-34) pg MCHC (32-36) g/dL RDW Std Deviation (36.4-46.3) fL RDW Coeff of Nino (11.5-14.5) % Plt Count (130-400) K/uL MPV (7.4-10.4) fL Immature Gran % (Auto) % Neut % (Auto) % Lymph % (Auto) % Sumner % (Auto) % Eos % (Auto) % Baso % (Auto) % Immature Gran # (Auto) (0.00-0.02) K/uL Neut # (Auto) (1.4-6.5) K/uL Lymph # (Auto) (1.2-3.4) K/uL Sumner # (Auto) (0.11-0.59) K/uL Eos # (Auto) (0-0.5) K/uL Baso # (Auto) (0-0.2) K/uL Smudge Cells PT (9.0-12.0) Seconds INR (0.9-1.1) Sodium (136-145) mmol/L Potassium (3.5-5.1) mmol/L Chloride (98-107) mmol/L Carbon Dioxide (21-32) mmol/L Anion Gap (3-11) BUN (7-18) mg/dl Creatinine (0.6-1.2) mg/dl Est Cr Clr Drug Dosing ml/min Est GFR ( Amer) Est GFR (Non-Af Amer) BUN/Creatinine Ratio (10-20) Glucose (70-99) mg/dl Calcium (8.5-10.1) mg/dl Phosphorus (2.5-4.9) mg/dl Magnesium (1.8-2.4) mg/dl Total Bilirubin (0.2-1) mg/dl Direct Bilirubin (0-0.2) mg/dl AST (15-37) U/L ALT (12-78) U/L Alkaline Phosphatase (45-117) U/L Troponin I 0.194 H* (0-0.045) ng/ml NT-Pro-B Natriuret Pep (0-900) pg/ml Total Protein (6.4-8.2) gm/dl Albumin (3.4-5.0) gm/dl Globulin (2.5-4.0) gm/dl Albumin/Globulin Ratio (0.9-2) Lipase (73-393) U/L TSH (0.300-4.500) uIu/ml Urine Color Yellow Urine Appearance Clear (Clear) Urine pH 5.0 (4.5-7.5) Ur Specific [place] 1.017 (1.000-1.030) Urine Protein Negative (Negative) Urine Glucose (UA) Negative (Negative) Urine Ketones Negative (Negative) Urine Blood Negative (Negative) Urine Nitrite Negative (Negative) Urine Bilirubin Negative (Negative) Urine Urobilinogen Negative (Negative) Ur Leukocyte Esterase Trace H (Negative) Urine WBC (Auto) 1-5 (0-5) /hpf Urine RBC (Auto) 0-4 (0-4) /hpf U Hyaline Cast (Auto) 1-5 (0-5) /lpf U Epithel Cells (Auto) 10-20 H (0-5) /lpf Urine Bacteria (Auto) Negative (Negative) Imaging Data Radiologist's Impression: Radiology results as stated below per my review and the radiologist's interpretation: XR chest 1V portable CLINICAL HISTORY: Chest pain. COMPARISON STUDY: Chest CT January 05, 2018. Chest radiograph May 13, 2019. FINDINGS: Severe osteoarthritis of the left glenohumeral joint is incidentally noted. There is no pneumothorax. Bibasilar opacities are noted. There is interstitial thickening. Cardiomegaly is unchanged. No definite pleural effusion is identified. IMPRESSION: 1. Interstitial thickening suggestive of mild pulmonary edema. 2. Hazy bibasilar opacities which may reflect pneumonia, atelectasis or overlying soft tissue artifact. Radiographic follow up is recommended. Electronically signed by: Giovanni Dixon M.D. 05/23/2019 10:36 AM ECG Data Attestation: I personally reviewed and interpreted this ECG as follows: Indication: SOB/dyspnea Rate (beats per minute): 60 Rhythm: sinus rhythm Findings: + other (normal axis, nonspecific ST and T wave abnormalities laterally); no acute ischemic change (laterally) Blood Pressure Blood Pressure Findings: Elevated blood pressure Blood Pressure Disposition: Referred to patients primary care provider BARBARA Lama The pateint is a pleasant 73-year-old woman with a past medical history of CLL, recent NSTEMI with associated systolic ischemic cardiomyopathy, paroxysmal A. fib who presents emergency department approximately a week after her discharge with worsening shortness of breath in the setting of increased weight gain and fluid retention per hpi. On arrival patient is chronically ill-appearing but in no acute distress, afebrile with stable vital signs. EKG without overt acute ischemia. Chest x-ray demonstrates mild pulmonary edema. WBC is elevated at 48K however in the setting of the patient's CLL and similarly recent values likely increased in the setting of recent course of steroids. H/H 10.4/33.5 similar to prior values. Platelets within normal limits. Chemistry without acidosis. Initial troponin 0 0.185 which is decreased from her prior values. Delta 3-hour troponin essentially unchanged at 0.194. BNP elevated at 9k which is increased from 1 week ago at 6K though patient was as high as 18K during her last admission. She was given 40 mg of IV Lasix with subsequent diuresis and improvement in her symptoms. However upon amatory trial with pulse ox while she did not desaturate she did become weak and dyspneic which the patient and family report was worse than when she was discharged. Thus, given the patient's fluid overload and continued symptoms reasonable to admit the patient for further management. Case was discussed with Dr. Baires, [facility] hospitalist, who will evaluate the patient for admission. Impression & Plan CHF (congestive heart failure), Volume overload, Elevated troponin Discharge Plan Visit Data *Final* Discharge Date/Time: 05/23/19 15:48 Chief Complaint: Shortness of Breath/Dyspnea Stated Complaint: sob ED Provider: Joshua Dumont Discharge Problem: CHF (congestive heart failure), Volume overload, Elevated troponin Patient Disposition: Admitted As Inpatient Discharge Instructions Interventions: ED Discharge Assessment Last Done: 05/23/19 15:48 Discharge Problem: CHF (congestive heart failure) Qualifiers: Heart failure type: systolic Heart failure chronicity: acute on chronic Qualified Code(s): I50.23 - Acute on chronic systolic (congestive) heart failure The scribe's documentation has been prepared under my direction and personally reviewed by me in its entirety. I confirm that the note above accurately reflects all work, treatment, procedures, and medical decision making performed by me.
[2019-05-23] MEDS ORDERED: LACTOBACILLUS ACIDOPHILUS PO SCH (17:16)
[2019-05-23] MEDS ORDERED: ALBUTEROL HFA 8 GM INHALER INH PRN (17:16)
[2019-05-23] MEDS ORDERED: LORazepam 0.5 MG TAB SL PRN (17:16)
[2019-05-23] MEDS ORDERED: predniSONE 10 MG TABLET PO SCH (17:16)
[2019-05-23] MEDS ORDERED: DEXTROSE 50% 50 ML SYRINGE IV PRN (19:01)
[2019-05-23] MEDS ORDERED: GLUCOSE 10 TABS/TUBE PO PRN (19:01)
[2019-05-23] MEDS ORDERED: GLUCOSE 40% GEL 15 GM TUBE PO PRN (19:01)
[2019-05-23] MEDS ORDERED: CARBOHYDRATES FOR HYPOGLYCEMIA PO PRN (19:01)
[2019-05-23] MEDS ORDERED: GLUCAGON FOR INJ 1 MG VIAL SQ PRN (19:01)
[2019-05-23] MEDS ORDERED: FUROSEMIDE 40 MG in SYRINGE 0 ML IV ONE (20:00)
[2019-05-23] MEDS: POTASSIUM CHLORIDE 10 MEQ TABCR PO SCH (20:38)
[2019-05-23] MEDS: CARVEDILOL 25 MG TAB PO SCH (20:38)
[2019-05-23] MEDS: ATORVASTATIN 40 MG TAB PO SCH (20:38)
[2019-05-23] MEDS: APIXABAN 5 MG TABLET PO SCH (20:38)
[2019-05-23] MEDS: DOXYCYCLINE HYCLATE 100 MG in DEXTROSE 5% 100 ML IV SCH (20:38)
[2019-05-23] MEDS: INSULIN ASPART 100 UNITS/ML 3 ML PEN SC SCH (20:57)
[2019-05-23] MEDS: INSULIN GLARGINE SOLOSTAR 100 UNITS/ML 3 ML PEN SC SCH (20:58)
[2019-05-24] MEDS: BREO ELLIPTA: ORDER AWAITING ACTION SCH ×4 (00:19→23:24)
[2019-05-24 05:19] LABS: Hematocrit (blood only) 30.2 % (37-47); Hemoglobin 9.5 g/dL (12.0-16.0); Mean Corpuscular Hgb Conc 31.5 g/dL (32-36); Mean Platelet Volume 10.3 fL (7.4-10.4); Platelet Count 200 K/uL (130-400); RDW Coefficient of Variation 14.2 % (11.5-14.5); RDW Standard Deviation 52.7 fL (36.4-46.3); Red Blood Count 2.96 M/uL (4.2-5.4); White Blood Count 40.68 K/uL (4.8-10.8)
[2019-05-24 05:28] LABS: Albumin Globulin Ratio 0.9 (0.9-2); Albumin Level 2.8 gm/dl (3.4-5.0); BUN Creatinine Ratio 20.6 (10-20); Bilirubin,Total 0.8 mg/dl (0.2-1); Calcium 8.9 mg/dl (8.5-10.1); Creatinine Clr Calc Pharmacy 46.3 ml/min; Est GFR (African American) 52.2; Est GFR (Non-African American) 45.1; Globulin 3.1 gm/dl (2.5-4.0); Potassium 4.3 mmol/L (3.5-5.1); Total Protein 5.9 gm/dl (6.4-8.2)
[2019-05-24] MEDS: INSULIN ASPART 100 UNITS/ML 3 ML PEN SC SCH ×4 (08:04→20:49)
[2019-05-24] MEDS: INSULIN GLARGINE SOLOSTAR 100 UNITS/ML 3 ML PEN SC SCH ×2 (08:05→20:49)
[2019-05-24] MEDS: POTASSIUM CHLORIDE 10 MEQ TABCR PO SCH ×2 (08:08→20:48)
[2019-05-24] MEDS: TELMISARTAN 40 MG TAB PO SCH (08:08)
[2019-05-24] MEDS: AMIODARONE 200 MG TAB PO SCH ×2 (08:08→09:26)
[2019-05-24] MEDS: CARVEDILOL 25 MG TAB PO SCH ×2 (08:08→20:47)
[2019-05-24] MEDS: APIXABAN 5 MG TABLET PO SCH ×2 (08:08→20:48)
[2019-05-24] MEDS: CITALOPRAM 20 MG TAB PO SCH (08:08)
[2019-05-24] MEDS: FLUTICASONE PROPIONATE NA SPR 16 GM BTL SCH (08:09)
[2019-05-24] MEDS: DOXYCYCLINE HYCLATE 100 MG in DEXTROSE 5% 100 ML IV SCH ×2 (08:18→21:46)
[2019-05-24] MEDS ORDERED: FUROSEMIDE 40 MG in SYRINGE 0 ML IV SCH (17:00)
[2019-05-24] MEDS: ATORVASTATIN 40 MG TAB PO SCH (20:47)
--- NOTE | 2019-05-24 22:35 | Hospitalist Progress Note ---
Date of Service May 24, 2019 Assessment & Plan (1) Acute on chronic systolic (congestive) heart failure: Presented with increased SOB, orthopnea, weight is up slightly. Was drinking excessive amounts of water since previous discharge Now diuresing, clinically much improved, weaned of O2 -continue IV lasix 40mg bid through this evening and then convert to lasix 40mg po bid tomorrow -Strict I's and O's, daily weights, fluid restriction of 1500 mL -Last echo completed during previous admission with EF of 30% -dc Jeong in the AM -follow BMP, Mg in AM Cardiology consulted -needs CHF clinic follow up (2) Ischemic cardiomyopathy: EF 30-35% on recent ECHO -Continue telmisartan 40 mg QAM, carvedilol 25 mg BID -diuresis as above (3) PAF (paroxysmal atrial fibrillation): Is in NSR here - Cont Eliquis 5 mg BID, amiodarone, Coreg for rate control (4) NSTEMI (non-ST elevated myocardial infarction): NSTEMI on 05/13/19 NSTEMI occurring within the past four weeks. - hx of such during last admission - continue medical management - Outpt echo to be obtained in 2-3 months for continued management - follows with [facility] cardiology -continue Eliquis, statin, Coreg (5) Acute respiratory failure with hypoxia: - Secondary to acute CHF exacerbation Now resolved, weaned off supplemental O2 (6) Pneumonia: Diagnosed during previous admission -finishing last day of doxycycline, already finished Cefdinir at home -should follow CXR to resolution as outpt (7) Hypertension: - BP stable, continue antihypertensives as above. (8) Dyslipidemia: - Cont statin therapy (9) Depression: - Continue citalopram (10) CLL (chronic lymphocytic leukemia): - Chronic, diagnosed 8 years ago - Follows with [facility] - continue as outpatient - This would explain elevated WBC of 48K and increased lymphocytes on cbc diff. - Pt was on prednisone taper recently for pna which may have elevated this slightly as well. Monitor with cbc WBC count down to baseline Anemia stable (11) DVT prophylaxis: - kamilah salmon Dispo: From home, PT.OT, hopeful for dc to home tomorrow Subjective Pt feeling much improved, is asking when she can be discharged. SOB is significantly improved, is weaned off O2. Denies any chest pain. She is making plenty of urine. No nausea or abd pain. Tele with NSR, SB rates 50s-60s Review of Systems Review of Systems: All systems reviewed & are unremarkable except as noted in HPI & below Physical Exam Constitutional: WD/WN, vitals as above Eyes: + anicteric sclerae Neck: trachea midline, no thyromegaly Respiratory: normal respiratory effort, lungs clear to auscultation Cardiovascular: Rate/Rhythm: regular rate and regular rhythm Heart Sounds: no murmur Extremities: + pedal edema (trace bilat) Gastrointestinal (Abdomen): normal bowel sounds, soft, nontender, no hep atosplenomegaly Musculoskeletal: Extremities: extremities normal to inspection; no cyanosis and no clubbing Skin: no rashes, warm and dry Neurologic: moves all extremities and awake; no focal motor deficits Psychiatric: A+Ox3, euthymic affect Results & Data Vital Signs (Past 12 Hours) Vital Signs Temp Pulse Resp BP Pulse Ox 05/24/19 19:34 36.5 C 59 L 19 131/79 98 05/24/19 15:32 36.4 C L 57 L 18 121/78 97 05/24/19 11:47 36.3 C L 60 19 119/69 96 Laboratory Results 05/24/19 05/24/19 05/24/19 Range/Units 20:49 16:15 11:15 WBC (4.8-10.8) K/uL RBC (4.2-5.4) M/uL Hgb (12.0-16.0) g/dL Hct (37-47) % MCV (80-100) fL MCH (25-34) pg MCHC (32-36) g/dL RDW Std Deviation (36.4-46.3) fL RDW Coeff of Nino (11.5-14.5) % Plt Count (130-400) K/uL MPV (7.4-10.4) fL Sodium (136-145) mmol/L Potassium (3.5-5.1) mmol/L Chloride (98-107) mmol/L Carbon Dioxide (21-32) mmol/L Anion Gap (3-11) BUN (7-18) mg/dl Creatinine (0.6-1.2) mg/dl Est Cr Clr Drug Dosing ml/min Est GFR ( Amer) Est GFR (Non-Af Amer) BUN/Creatinine Ratio (10-20) Glucose (70-99) mg/dl POC Glucose 132 H 146 H 157 H (70-99) Calcium (8.5-10.1) mg/dl Total Bilirubin (0.2-1) mg/dl AST (15-37) U/L ALT (12-78) U/L Alkaline Phosphatase (45-117) U/L Total Protein (6.4-8.2) gm/dl Albumin (3.4-5.0) gm/dl Globulin (2.5-4.0) gm/dl Albumin/Globulin Ratio (0.9-2) 05/24/19 05/24/19 05/24/19 Range/Units 07:22 04:38 04:38 WBC 40.68 H* (4.8-10.8) K/uL RBC 2.96 L (4.2-5.4) M/uL Hgb 9.5 L (12.0-16.0) g/dL Hct 30.2 L (37-47) % MCV 102.0 H (80-100) fL MCH 32.1 (25-34) pg MCHC 31.5 L (32-36) g/dL RDW Std Deviation 52.7 H (36.4-46.3) fL RDW Coeff of Nino 14.2 (11.5-14.5) % Plt Count 200 (130-400) K/uL MPV 10.3 (7.4-10.4) fL Sodium 142 (136-145) mmol/L Potassium 4.3 D (3.5-5.1) mmol/L Chloride 107 (98-107) mmol/L Carbon Dioxide 31 (21-32) mmol/L Anion Gap 4.0 (3-11) BUN 24 H (7-18) mg/dl Creatinine 1.18 (0.6-1.2) mg/dl Est Cr Clr Drug Dosing 46.3 ml/min Est GFR ( Amer) 52.2 Est GFR (Non-Af Amer) 45.1 BUN/Creatinine Ratio 20.6 H (10-20) Glucose 171 H (70-99) mg/dl POC Glucose 162 H (70-99) Calcium 8.9 (8.5-10.1) mg/dl Total Bilirubin 0.8 (0.2-1) mg/dl AST 11 L (15-37) U/L ALT 42 (12-78) U/L Alkaline Phosphatase 89 (45-117) U/L Total Protein 5.9 L (6.4-8.2) gm/dl Albumin 2.8 L (3.4-5.0) gm/dl Globulin 3.1 (2.5-4.0) gm/dl Albumin/Globulin Ratio 0.9 (0.9-2) Diagnostic Findings 05/24/19 05/24/19 05/24/19 Range/Units 20:49 16:15 11:15 WBC (4.8-10.8) K/uL RBC (4.2-5.4) M/uL Hgb (12.0-16.0) g/dL Hct (37-47) % MCV (80-100) fL MCH (25-34) pg MCHC (32-36) g/dL RDW Std Deviation (36.4-46.3) fL RDW Coeff of Nino (11.5-14.5) % Plt Count (130-400) K/uL MPV (7.4-10.4) fL Sodium (136-145) mmol/L Potassium (3.5-5.1) mmol/L Chloride (98-107) mmol/L Carbon Dioxide (21-32) mmol/L Anion Gap (3-11) BUN (7-18) mg/dl Creatinine (0.6-1.2) mg/dl Est Cr Clr Drug Dosing ml/min Est GFR ( Amer) Est GFR (Non-Af Amer) BUN/Creatinine Ratio (10-20) Glucose (70-99) mg/dl POC Glucose 132 H 146 H 157 H (70-99) Calcium (8.5-10.1) mg/dl Total Bilirubin (0.2-1) mg/dl AST (15-37) U/L ALT (12-78) U/L Alkaline Phosphatase (45-117) U/L Total Protein (6.4-8.2) gm/dl Albumin (3.4-5.0) gm/dl Globulin (2.5-4.0) gm/dl Albumin/Globulin Ratio (0.9-2) 09/08/0105/24/19 05/24/19 Range/Units 07:22 04:38 04:38 WBC 40.68 H* (4.8-10.8) K/uL RBC 2.96 L (4.2-5.4) M/uL Hgb 9.5 L (12.0-16.0) g/dL Hct 30.2 L (37-47) % MCV 102.0 H (80-100) fL MCH 32.1 (25-34) pg MCHC 31.5 L (32-36) g/dL RDW Std Deviation 52.7 H (36.4-46.3) fL RDW Coeff of Nino 14.2 (11.5-14.5) % Plt Count 200 (130-400) K/uL MPV 10.3 (7.4-10.4) fL Sodium 142 (136-145) mmol/L Potassium 4.3 D (3.5-5.1) mmol/L Chloride 107 (98-107) mmol/L Carbon Dioxide 31 (21-32) mmol/L Anion Gap 4.0 (3-11) BUN 24 H (7-18) mg/dl Creatinine 1.18 (0.6-1.2) mg/dl Est Cr Clr Drug Dosing 46.3 ml/min Est GFR ( Amer) 52.2 Est GFR (Non-Af Amer) 45.1 BUN/Creatinine Ratio 20.6 H (10-20) Glucose 171 H (70-99) mg/dl POC Glucose 162 H (70-99) Calcium 8.9 (8.5-10.1) mg/dl Total Bilirubin 0.8 (0.2-1) mg/dl AST 11 L (15-37) U/L ALT 42 (12-78) U/L Alkaline Phosphatase 89 (45-117) U/L Total Protein 5.9 L (6.4-8.2) gm/dl Albumin 2.8 L (3.4-5.0) gm/dl Globulin 3.1 (2.5-4.0) gm/dl Albumin/Globulin Ratio 0.9 (0.9-2) PG Care Time/CCT Total # of Minutes Spent Total Time Spent with Patient: Total time spent is greater than 50% in coordination of care (as documented) at patient's floor/unit and/or counseling patient:
[2019-05-25 07:54] LABS: Hematocrit (blood only) 29.9 % (37-47); Hemoglobin 9.6 g/dL (12.0-16.0); Mean Corpuscular Hgb Conc 32.1 g/dL (32-36); Mean Corpuscular Volume 102.4 fL (80-100); Mean Platelet Volume 9.9 fL (7.4-10.4); Platelet Count 201 K/uL (130-400); RDW Coefficient of Variation 14.5 % (11.5-14.5); RDW Standard Deviation 53.6 fL (36.4-46.3); Red Blood Count 2.92 M/uL (4.2-5.4); White Blood Count 31.85 K/uL (4.8-10.8)
[2019-05-25] MEDS: APIXABAN 5 MG TABLET PO SCH (08:06)
[2019-05-25] MEDS: CARVEDILOL 25 MG TAB PO SCH (08:07)
[2019-05-25] MEDS: CITALOPRAM 20 MG TAB PO SCH (08:07)
[2019-05-25] MEDS: TELMISARTAN 40 MG TAB PO SCH (08:07)
[2019-05-25] MEDS: INSULIN ASPART 100 UNITS/ML 3 ML PEN SC SCH ×2 (08:10→12:46)
[2019-05-25] MEDS: AMIODARONE 200 MG TAB PO SCH (08:11)
[2019-05-25] MEDS: POTASSIUM CHLORIDE 10 MEQ TABCR PO SCH (08:11)
[2019-05-25] MEDS: FLUTICASONE PROPIONATE NA SPR 16 GM BTL SCH (08:11)
[2019-05-25] MEDS: INSULIN GLARGINE SOLOSTAR 100 UNITS/ML 3 ML PEN SC SCH (08:16)
[2019-05-25 08:18] LABS: Albumin Level 2.6 gm/dl (3.4-5.0); BUN Creatinine Ratio 29.1 (10-20); Creatinine Clr Calc Pharmacy 45.3 ml/min; Est GFR (African American) 50.7; Est GFR (Non-African American) 43.7; Magnesium 2.2 mg/dl (1.8-2.4); Potassium 4.1 mmol/L (3.5-5.1)
[2019-05-25 08:21] LABS: Albumin Globulin Ratio 0.8 (0.9-2); Bilirubin,Total 0.5 mg/dl (0.2-1); Globulin 3.2 gm/dl (2.5-4.0); Total Protein 5.8 gm/dl (6.4-8.2)
[2019-05-25] MEDS ORDERED: FUROSEMIDE 40 MG TAB PO SCH (09:00)
[2019-05-25] MEDS: BREO ELLIPTA: ORDER AWAITING ACTION SCH (12:46)
--- NOTE | 2019-05-25 13:04 | Cardiology Progress Note ---
Date of Service May 25, 2019 Assessment & Plan (1) Acute on chronic systolic (congestive) heart failure: Suspect her decompensation was related to dietary indiscretion with salt along with excessive hydration related to her antibiotic administration. Her BUN and creatinine have increased today suggesting she is likely down to her dry weight. She knows to use tomorrow morning's weight at home as her dry weight. She will take Lasix 40 mg daily as an outpatient. She notes admi nistered an additional 40 mg should she gain 3 or more lb. We have again discussed importance of a salt and fluid restricted diet. (2) Ischemic cardiomyopathy: Echocardiogram performed May 13 noted an ejection fraction of 30-35% with an akinetic an aneurysmal apex, and inferior wall akinesis. Continue carvedilol and telmisartan. (3) PAF (paroxysmal atrial fibrillation): Remains in normal sinus rhythm on amiodarone. Tolerating Eliquis as her anticoagulant. (4) Hypertension: Adequate control on current regimen. (5) Dyslipidemia: Continue atorvastatin. Subjective The patient is resting comfortably in bed without complaints of chest pain or dyspnea. She has axis rests with discharge. We have had a long discussion regarding importance of daily weights, sliding-scale diuretics, fluid restriction, and a low-salt diet. Physical Exam Physical Exam: In general is well-developed well-nourished white female no acute distress. HEENT exam is negative. Neck is supple with full carotid upstrokes. No carotid bruits. Jugular is pressure is flat at 90 degrees. No thyromegaly. Cardiovascular exam reveals a regular rhythm with distant heart sounds. No obvious murmurs. No S3. Lungs no decreased breath sounds at the bases but no rales. Abdomen is obese without bruits. Extremities reveal intact radial artery pulses bilaterally. Trace pretibial edema is noted. Results & Data Vital Signs (Past 12 Hours) Vital Signs Temp Pulse Resp BP Pulse Ox 05/25/19 11:50 36.6 C 84 20 129/73 92 05/25/19 07:06 36.5 C 52 L 18 124/77 95 05/25/19 04:20 36.7 C 55 L 18 132/69 96 Laboratory Results BUN and creatinine are increasing. Diagnostic Findings surveillance system monitor notes sinus rhythm. PG Care Time/CCT Total # of Minutes Spent Total Time Spent with Patient: Total time spent is greater than 50% in coordination of care (as documented) at patient's floor/unit and/or counseling patient:
--- NOTE | 2019-05-25 13:54 | Heart Failure Progress Note ---
Date of Service May 25, 2019 Assessment & Plan (1) Acute on chronic systolic (congestive) heart failure: (2) Ischemic cardiomyopathy: Patient appears near euvolemic today. Anticipate Lasix 40 mg daily with an extra 40 mg as needed for symptoms or weight gain. Patient has a scale at home and is agreeable to daily weights. She was instructed to notify the CHF team for 2+ lb weight gain overnight or 5+ lb weight gain in 1 week. We discussed fluid restriction, less than 1500 mL per day. We discussed low-sodium diet, less than 2000 mg per day. We discussed other reasons to call the Heart failure program including worsening shortness of breath, swelling, or orthopnea. Patient has been scheduled to follow up on 06/01 at 2:00 p.m. Subjective Patient initially referred to the CHF program following her previous discharge. Follow up on 05/19/19 was cancelled and rescheduled for 05/23/19 but she was admitted instead. She reports today she is feeling improved. Her breathing has returned to baseline. Her weight was 211 this am, which she reports is her dry weight at home. Her lower extremity edema has resolved. She has no other complaints and is anxious for discharge. Results & Data Vital Signs (Past 12 Hours) Vital Signs Temp Pulse Resp BP Pulse Ox 05/25/19 11:50 97.9 F 84 20 129/73 92 05/25/19 07:06 97.7 F 52 L 18 124/77 95 05/25/19 04:20 98.1 F 55 L 18 132/69 96
--- NOTE | 2019-05-25 14:32 | Discharge Summary ---
Date of Service May 25, 2019 Admission HPI Per Admitting Provider This is a 73 yo F with PMHx of HTN, HLD, CAD, A. fib on Eliquis, acute on chronic systolic CHF, history of NSTEMI, COPD, GERD, depression, migraine headache who was recently admitted to our facility from 05/12/2019 to 05/16/19 as a direct transfer from [facility] for acute on chronic CHF exacerbation, pneumonia and developed an NSTEMI secondary to those during her stay. Patient notes that she has been at home for approximately 1 week. She has been taking all her medications as instructed. Patient states that she has been taking doxycycline and Cefdinir to finish course of antibiotic for pneumonia, however requires drinking 16 ounces of water for each dose of doxycycline which is 4 times daily. She has been taking her Lasix 40 mg daily as prescribed. Patient notes this morning she developed worsening shortness of breath with speaking, progressive orthopnea although she never lies flat to sleep and uses a recliner, and dyspnea with minimal exertion. She admits to having intermittent chills but denies fevers. She states that because her keeps the air conditioner on all the time. She also notes that she had diarrhea for the past 3 days, but got a yogurt with probiotic in it and reports this seems to help things. Otherwise patient denies any acute complaints. Her daughter and grandson are present at bedside. Principal Diagnosis Acute on chronic systolic CHF Discharge Exam Constitutional WD/WN, vitals as above Eyes + anicteric sclerae Neck trachea midline, no thyromegaly Respiratory normal respiratory effort, lungs clear to auscultation Cardiovascular Rate/Rhythm: regular rate and regular rhythm Heart Sounds: + murmur (2/6 DEBRA at LLSB) Gastrointestinal (Abdomen) normal bowel sounds, soft, nontender, no hepatosplenomegaly Musculoskeletal Extremities: extremities normal to inspection; no cyanosis and no clubbing Skin no rashes, warm and dry Neurologic moves all extremities and awake; no focal motor deficits Psychiatric A+Ox3, euthymic affect Discharge Data Allergies Allergy/AdvReac Type Severity Reaction Status Date / Time bee venom protein (honey bee) Allergy Severe Anaphylaxis Verified 05/23/19 09:44 Penicillins Allergy Mild Rash Verified 05/23/19 09:44 Sulfa (Sulfonamide Allergy Mild Rash Verified 05/23/19 09:44 Antibiotics) Consultations 05/23/19 14:31 ED Decision to Admit Stat 05/23/19 15:19 Consult Case Management - Discharge Planning Routine 05/24/19 10:32 Consult Cardiology Routine 05/24/19 22:44 [facility] CHF Program Referral Routine Ordered Studies CXR Hospital Course (1) Acute on chronic systolic (congestive) heart failure: Presented with increased SOB, orthopnea, weight is up slightly. Was drinking excessive amounts of water since previous discharge Now diuresing, clinically much improved, weaned off O2 No further dyspnea -received IV lasix 40mg bid then converted to lasix 40mg po daily with a prn dose in the afternoon upon discharge -discussed daily weights, fluid restriction of 1800 mL -Last echo completed during previous admission with EF of 30-35%, with [facility] Cardiology consulted -appreciate recommendations -needs CHF clinic follow up -continue Coreg 25 bid -continue telmisartan and will likely be switched to Entresto with Cardio as outpt (2) Ischemic cardiomyopathy: EF 30-35% on recent ECHO -Continue telmisartan 40 mg QAM, carvedilol 25 mg BID -diuresis as above (3) PAF (paroxysmal atrial fibrillation): Is in NSR here - Cont Eliquis 5 mg BID, amiodarone, Coreg for rate control (4) NSTEMI (non-ST elevated myocardial infarction): NSTEMI on 05/13/19 NSTEMI occurring within the past four weeks. - hx of such during last admission - continue medical management - Outpt echo to be obtained in 2-3 months for continued management - follows with [facility] cardiology -continue Eliquis, statin, Coreg (5) Acute respiratory failure with hypoxia: - Secondary to acute CHF exacerbation Now resolved, weaned off supplemental O2 (6) Pneumonia: Diagnosed during previous admission -finished last day of doxycycline, already finished Cefdinir at home -should follow CXR to resolution as outpt (7) Hypertension: - BP stable, continue antihypertensives as above. (8) Dyslipidemia: - Cont statin therapy (9) Depression: - Continue citalopram (10) CLL (chronic lymphocytic leukemia): - Chronic, diagnosed 8 years ago - Follows with [facility] - continue as outpatient - This would explain elevated WBC of 48K and increased lymphocytes on cbc diff. - Pt was on prednisone taper recently for pna which may have elevated this slightly as well. Monitor with cbc WBC count down to baseline Anemia stable (11) DVT prophylaxis: - kamilah salmon Dispo: stable for dc to home Total Time Total Time Spent Total Time Spent (In Minutes): >30 min Total Time Includes: Examination of the Patient, Discharge Planning and Medication Reconciliation Discharge Plan Discharge Items Patient Disposition: Home - Self-Care Reason For Visit: SOB Discharge Diagnosis: Acute systolic CHF exacerbation Condition on Discharge: Good Activity: Resume your previous activity Bathing: No limitations Driving/Machine Use: No limitations Non-emergency contact: Primary Care Provider and Associate Account Executive Call non-emergency contact if: you have any medication questions and your symptoms worsen Follow-up/Referrals: Tatiana Ch PA-C [Physician Desizing Pad Operator] - 06/01/19 2:00 pm (Please, follow up at [facility] Cardiology Office with Kortney Ch PA-C on June 01 at 2:00 pm. *The office is located in [address] of [facility]. This is the big building next to the [facility]. If you need to change this appointment, call the office at [phone].) Mary Jane Cruz DO [Primary Care Provider] - 05/30/19 11:20 am (Please, follow up with Dr. Cruz on WednesdayMay 30 at 11:20 am. *If you need to change this appointment, call the office at [phone].) Diet: Low Sodium (2gm) Fluids: 1800ml (7 cups) Addtl Attending Provider Instructions: Call your Primary Care doctor if any of the following symptoms or problems start or get worse: * Shortness of breath or difficulty breathing * Wake up at night short of breath * Chest pain * Cough * Swelling of your hands, feet, or legs * More fatigued or tired with your normal activity * Palpitations - sudden fast heart beats WEIGHT * Weigh yourself every morning after using the bathroom. * Use the same scale. * Wear the same amount of clothing. * Write your weight down on a chart. * Call your Primary Care doctor if you gain more than 2-3 pounds in 1-2 days. MEDICATIONS * Use this discharge instruction sheet for medication instructions. * Take your medications at the time your doctor ordered. * Do not skip a dose of your medicines. * If you miss a dose of medicine, take it as soon as possible, but DO NOT DOUBLE A DOSE. * Read your medicine information when you get home. * Know all of the side effects of your medicine. If in doubt, ask your pharmacist * Call your Primary Care doctor's office if you have any side effects. * Be sure all of your doctors know what medicine and herbs you take (including cold, flu, and herbal medicine). Take the following with you to your follow-up doctor appointments: * Weight Chart * Medication List * List of questions Do not drink excessive alcohol, beer or wine. Pending Studies at Discharge: No Stand-Alone Forms: My [facility] Medications and DC Order Prescriptions: Continued atorvastatin [Lipitor] 80 mg Tablet 80 mg PO HS RF: 0 amiodarone 200 mg Tablet 200 mg PO QAM RF: 0 potassium chloride 10 mEq Tablet Extended Release 10 meq PO BID RF: 0 albuterol sulfate 90 mcg/actuation Hfa Aerosol Inhaler 1 puff INHALATION Q6H PRN (Reason: Shortness Of Breath) RF: 0 Breo Ellipta 100-25 mcg/dose Blister With Device 1 inh INHALATION DAILY RF: 0 citalopram 20 mg Tablet 20 mg PO QAM RF: 0 lorazepam 0.5 mg Tablet 0.5 mg BUCCAL BID PRN (Reason: Anxiety) RF: 0 fluticasone propionate 50 mcg/actuation spray,suspension 1 spray intranasal QAM RF: 0 metformin 500 mg tablet extended release 24 hr 500 mg PO QAM RF: 0 carvedilol 25 mg Tablet 25 mg PO BID Qty: 60 RF: 1 telmisartan 40 mg Tablet 40 mg PO QAM Qty: 30 RF: 1 nitroglycerin [Nitrostat] 0.4 mg Tablet, Sublingual 0.4 mg sublingual UD PRN (Reason: Chest Pain) Qty: 25 RF: 0 Eliquis 5 mg Tablet 5 mg PO BID Qty: 60 RF: 2 Changed furosemide 40 mg tablet 40 mg PO QAM Qty: 60 RF: 0 Discontinued Lactobacillus acidophilus capsule 2 cap PO QID Qty: 60 RF: 0 Discharge Orders: Discharge Order (Routine); Ordered 05/25/19 Ordered By: Danielle Huitron Admission Data Admit Date/Time: 05/23/19 15:32 Attending Provider: Danielle Huitron Admit Provider: Nikki Baires Primary Care Provider: Mary Jane Cruz Other Providers: Rigo Robison ; Nikki Baires ; Tatiana Ch
== END 2019-05-25 16:30 | disposition home or self-care (01) | DRG 280 ==
LOC: ED 09:09 → 2S 15:32 → SUATTDRO 15:32 → 2S 15:48
DX: G43.909 Migraine, unspecified, not intractable, without status migrainosus; C91.11 Chronic lymphocytic leukemia of B-cell type in remission; F32.9 Major depressive disorder, single episode, unspecified; Z88.0 Allergy status to penicillin; Z79.84 Long term (current) use of oral hypoglycemic drugs; Z91.030 Bee allergy status; I11.0 Hypertensive heart disease with heart failure; J96.01 Acute respiratory failure with hypoxia; I50.23 Acute on chronic systolic (congestive) heart failure; E78.5 Hyperlipidemia, unspecified; I25.5 Ischemic cardiomyopathy; J18.9 Pneumonia, unspecified organism; K21.9 Gastro-esophageal reflux disease without esophagitis; I25.2 Old myocardial infarction; Z88.2 Allergy status to sulfonamides; I48.0 Paroxysmal atrial fibrillation; I21.4 Non-ST elevation (NSTEMI) myocardial infarction; Z83.3 Family history of diabetes mellitus; Z96.652 Presence of left artificial knee joint

== ENCOUNTER 2019-06-18 13:33 | Inpatient (IN) ==
--- NOTE | 2019-06-18 15:49 | History & Physical Report ---
Date of Service June 18, 2019 Assessment & Plan (1) CHF (congestive heart failure): Admit patient to [facility] on telemetry for acute exacerbation of systolic congestive heart failure, pulmonary edema with right pleural effusion and hospital-acquired pneumonia. Patient is a transfer from [facility] for cardiac catheterization in a.m. by Dr. Driver Primary painter apprentice Dr. Robison Vital signs every 4 hours Hold morning of apixaban for the procedure per recommendation of Dr. Driver Continue IV Lasix 40 mg p.o. twice daily Continue carvedilol 25 mg p.o. twice daily and hold if blood pressure Continue Entresto 24 mg26 oral tablet 1 tablet daily. Strict in and out Daily weight Monitor potassium and replenish as needed P.o. free water restriction to 1200 mils Low-sodium diet TTE pending Full code Present on Admission?: Yes (2) Ischemic cardiomyopathy: As the above Present on Admission?: Yes (3) PAF (paroxysmal atrial fibrillation): Hold apixaban in the morning 2.5 mg twice daily for the cardiac cath. Continue apixaban thereafter catheterization as per schedule for paroxysmal A. fib's. Present on Admission?: Yes (4) Depression: Stable, continue citalopram 20 mg p.o. every morning Present on Admission?: Yes (5) Dyslipidemia: Continue atorvastatin 80 mg nightly Present on Admission?: Yes (6) Diabetes mellitus type 2 in obese: Hold metformin while patient kidney function is decreased. Consider starting another agent less toxic to kidneys. Sliding scale insulin before meals and at bedtime. Glycemic control per pharmacy Present on Admission?: Yes (7) COPD (chronic obstructive pulmonary disease): Stable now, continue Breo Ellipta 1 puff once a day, continue fluticasone 0.05% 1 puff once a day, continue duo nebs every 6 hours. (8) Pulmonary edema: Continued diuresis with furosemide 40 mg IV twice daily Monitor closely potassium and magnesium. Present on Admission?: Yes (9) Pneumonia: Continue cefepime for hospital-acquired pneumonia and vancomycin switched to a nasal lead since patient has kidney failure. Present on Admission?: Yes (10) Hypertension: Monitor closely blood pressure for hypotension. Present on Admission?: Yes (11) CLL (chronic lymphocytic leukemia): Chronic continue-monitoring, white blood cell count stable 12.06. Present on Admission?: Yes History of Present Illness Chief Complaint: Acute CHF exacerbation and pneumonia Primary Care Provider: Mary Jane Cruz DO Patient is a 73 years old female with past medical history of chronic systolic congestive heart failure, chronic lymphocytic leukemia, ischemic cardiomyopathy, paroxysmal atrial fibrillation on Apixaban, hypertension, depression, GERD, dyslipidemia, COPD, history of CVA, hypertension, diabetes mellitus type 2 who is direct admit from [facility] per painter apprentice Dr. Robison for acute CHF exacerbation, pulmonary edema, pneumonia and to have cardiac catheterization tomorrow by Dr. Edgardo Driver-cardiology. Patient was admitted to [facility] since June for 2019. On arrival to [facility] patient is in stable condition, oxygenating 97% on room air. Transferred note of Dr. Richie Rodas MD reviewed and pertinent for hospital diagnosis of acute pulmonary edema with acute CHF, acute hypoxemic respiratory failure as well as possible underlining pneumonia. Patient was treated with IV Lasix 40 mg twice a day. For pneumonia patient was treated with IV vancomycin managed by pharmacy and IV cefepime 2 g every 12 hours. Patient potassium level was monitored closely. Patient was taken off supplemental oxygen because her oxygenation was 97% on room air. Patient was continued on Eliquis 2.5 twice daily for paroxysmal A. fib's and for DVT prophylaxis. For hyperlipidemia patient was treated with atorvastatin 80 mg daily. For diabetes mellitus patient was treated with Metformin 500 mg twice a day, carb controlled diet and Accu-Cheks with sliding scale coverage. For atrial fibrillation patient was treated with Eliquis 2.5 mg twice a day, amiodarone 200 mg twice daily and Coreg 25 mg daily. For COPD patient was treated with Breo 1puff twice a day, duo nebs every 6 hours. There was a concern that patient needs cardiac catheterization because of her history of coronary artery disease and recent non-ST elevation myocardial infarction and recent admission to the hospital with acute congestive heart failure history of hypertension, diabetic diabetes mellitus, cardiomyopathy with ejection fraction 35 to 40% and chronic kidney disease stage III as well as hyperlipidemia. Patient remained in the sinus rhythm on telemetry. He is directly admitted to [facility] telemetry for acute exacerbation of congestive heart failure, pulmonary edema, IV diuresis, pneumonia, IV antibiotics and cardiac catheterization in a.m. Labs reviewed:WBC 12.06, hemoglobin 9.7, hematocrit 31, platelet 214, PT 11.2, INR 1.1, APTT 30.2, sodium 141, potassium 4, chloride 107, anion gap 8 BUN 27, creatinine 1.4 GFR 36.7,Glucose 134, lactate 1.3, calcium 8.9, magnesium pending, BNP 8350, troponin 0.0 37. Procalcitonin pending, TSH 2.87, urine trace leukocyte esterase otherwise negative. Chest x-rays show interval improvement in the pulmonary edema and trace right pleural effusion. Allergies Allergy/AdvReac Type Severity Reaction Status Date / Time bee venom protein (honey bee) Allergy Severe Anaphylaxis Verified 06/07/19 13:40 Penicillins Allergy Mild Rash Verified 06/07/19 13:40 Sulfa (Sulfonamide Allergy Mild Rash Verified 06/07/19 13:40 Antibiotics) Home Medications Home Medications Medication Instructions Recorded Confirmed Type albuterol sulfate 1 puff INHALATION Q6H PRN 03/10/19 06/07/19 History amiodarone 200 mg PO QAM 03/10/19 06/07/19 History atorvastatin [Lipitor] 80 mg PO HS 03/10/19 06/07/19 History potassium chloride 10 meq PO BID 03/10/19 06/07/19 History citalopram 20 mg PO QAM 05/12/19 06/07/19 History fluticasone propionate 1 spray INTRANASAL QAM 05/12/19 06/07/19 History lorazepam 0.5 mg BUCCAL BID PRN 05/12/19 06/07/19 History metformin 500 mg PO QAM 05/12/19 06/07/19 History Eliquis 5 mg PO BID #60 tab 05/16/19 06/07/19 Rx carvedilol 25 mg PO BID #60 tab 05/16/19 06/07/19 Rx nitroglycerin [Nitrostat] 0.4 mg SUBLINGUAL UD PRN #25 tab 05/16/19 06/07/19 Rx Breo Ellipta 1 inh INHALATION DAILY 05/23/19 06/07/19 History furosemide 40 mg PO QAM #60 tab 05/25/19 06/07/19 Rx sacubitril 24 mg-valsartan 26 mg 1 tab PO BID #60 tab 06/07/19 06/07/19 Rx tablet Past Med/Surg History Medical History Anxiety Asthma inhaler daily/prn Atrial fibrillation Depression Diabetes mellitus, type 2 Hearing deficit History of colon polyps Hyperlipidemia Hypertension Leukemia just monitoring Myocardial Infarction 2010 Nausea and vomiting after administration of anesthetic agent On anticoagulant therapy coumadin daily Osteoarthritis Spinal stenosis Stroke x3 ?----no neurologist, left arm weakness, uses cane to ambulate Surgical History History of bilateral breast reduction surgery History of colonoscopy History of dilatation and curettage x3 History of laparoscopy History of phacoemulsification of cataract of both eyes with intraocular lens implantation History of right breast biopsy x3--benign History of total left knee replacement (TKR) Family History Mother Family history of diabetes mellitus Family/Other Family history of diabetes mellitus cousin Other No family history of adverse response to anesthesia Social History Preferred Language: [place] Communication Ability: Effective Rough Rounder Required: No Beliefs That Will Affect Care: None marital status: Current Living Situation: Spouse Current Living Situation Comment: house Feels Safe at Home: Yes Safety Concerns: Feels Safe At This Time Smoking Status: Never smoker Second Hand Exposure: No ; Hx Alcohol Use: Yes Alcohol type: wine Hx Substance Use: No Review of Systems Review of Systems: All systems reviewed & are unremarkable except as noted in HPI & below Physical Exam Constitutional: WD/WN, vitals as above well developed and + frail appearing Eyes: PERRL, conjunctivae normal, anicteric sclerae ENMT: external ear and nose normal, oropharynx normal Neck: trachea midline, no thyromegaly Respiratory: Auscultation: + wheezes and + bronchovesicular breath sounds (On the right) Cardiovascular: Heart Sounds: normal S1 and normal S2 Palpation: + palpable S3 Vessels: + JVD and dorsalis pedis pulses present Extremities: + pedal edema (Trace pedal edema, bilateral) Gastrointestinal (Abdomen): normal bowel sounds, soft, nontender, no hepatosplenomegaly Musculoskeletal: no cyanosis or clubbing, extremities motor strength 5/5 Skin: no rashes, warm and dry Neurologic: patellar DTR's 2+ bilat, sensation intact Psychiatric: A+Ox3, euthymic affect Lymphatic: no cervical or axillary lymphadenopathy Code Status & VTE Plan Code Status Full code VTE Prophylaxis Plan VTE Prophylaxis will be ordered: Yes PG Care Time/CCT Total # of Minutes Spent Total Time Spent with Patient: Total time spent is greater than 50% in coordination of care (as documented) at patient's floor/unit and/or counseling patient: (1) CHF (congestive heart failure) Heart failure chronicity: acute on chronic Heart failure type: systolic Qualified Code(s): I50.23 - Acute on chronic systolic (congestive) heart failure
--- NOTE | 2019-06-18 16:04 | XRay Report ---
XR chest 1V portable HISTORY: Shortness of breath. Congestive heart failure. COMPARISON: Chest 05/23/2019. FINDINGS: The heart remains enlarged. Mild interstitial pulmonary edema and a trace right pleural eff usion have improved. No pneumothorax. No new focal lung consolidations. IMPRESSION: Interval improvement in the pulmonary edema and trace right pleural effusion. Electronically signed by: Arnel Cortés M.D. 06/18/2019 4:03 PM
[2019-06-18 16:20] LABS: Hemoglobin 9.7 g/dL (12.0-16.0); Mean Corpuscular Hemoglobin 31.3 pg (25-34); Mean Platelet Volume 9.9 fL (7.4-10.4); Platelet Count 214 K/uL (130-400); RDW Standard Deviation 54.3 fL (36.4-46.3); White Blood Count 12.06 K/uL (4.8-10.8)
[2019-06-18] MEDS ORDERED: GLUCOSE 10 TABS/TUBE PO PRN (16:28)
[2019-06-18] MEDS ORDERED: POLYETHYLENE (MIRALAX) 17 GM PACK PO PRN (16:28)
[2019-06-18] MEDS ORDERED: ALBUTEROL HFA 8 GM INHALER INH PRN (16:28)
[2019-06-18] MEDS ORDERED: NON-FORMULARY MEDICATION (Fluticasone Furoate-Vilanterol [Breo Ellipta] 1 PUFFS) INH SCH (16:28)
[2019-06-18] MEDS ORDERED: DEXTROSE 50% 50 ML SYRINGE IV PRN (16:28)
[2019-06-18] MEDS ORDERED: MAGNESIUM HYDROXIDE SUSP 30 ML UDC PO PRN (16:28)
[2019-06-18] MEDS ORDERED: GLUCOSE 40% GEL 15 GM TUBE PO PRN (16:28)
[2019-06-18] MEDS ORDERED: CARBOHYDRATES FOR HYPOGLYCEMIA PO PRN (16:28)
[2019-06-18] MEDS ORDERED: ALUMINUM/MAGNESIUM SUSP 30 ML UDC PO PRN (16:28)
[2019-06-18] MEDS ORDERED: NITROGLYCERIN SL 0.4 MG/TAB TAB SL PRN (16:28)
[2019-06-18] MEDS ORDERED: GLUCAGON FOR INJ 1 MG VIAL SQ PRN (16:28)
[2019-06-18] MEDS ORDERED: ZOLPIDEM TARTRATE 5 MG TAB PO PRN (16:28)
[2019-06-18 16:37] LABS: Albumin Level 2.7 gm/dl (3.4-5.0); BUN Creatinine Ratio 19.6 (10-20); Calcium 8.9 mg/dl (8.5-10.1); Creatinine Clr Calc Pharmacy 38.8 ml/min; Est GFR (African American) 42.5; Est GFR (Non-African American) 36.7
[2019-06-18] MEDS ORDERED: PHARMACY GLYCEMIC MGMT CONSULT PRN (16:39)
[2019-06-18 16:42] LABS: INR 1.1 (0.9-1.1); Partial Thromboplastin Ratio 1.1; Partial Thromboplastin Time 30.2 Seconds (21.0-31.0); Prothrombin Time 11.2 Seconds (9.0-12.0)
[2019-06-18 16:48] LABS: Albumin Globulin Ratio 0.8 (0.9-2); Bilirubin,Total 0.8 mg/dl (0.2-1); Globulin 3.4 gm/dl (2.5-4.0); Thyroid Stimulating Hormone 2.87 uIu/ml (0.300-4.500); Total Protein 6.1 gm/dl (6.4-8.2); Troponin I 0.037 ng/ml (0-0.045)
[2019-06-18 17:14] LABS: ALC (manual) 6.62 K/uL (1.2-3.4); Basophils # (manual) 0.11 K/uL (0-0.2); Basophils % (manual) 0.9 %; Eosinophils # (manual) 0.42 K/uL (0-0.5); Eosinophils % (manual) 3.5 %; Lymphocytes # (manual) 6.62 K/uL (1.2-3.4); Lymphocytes % (manual) 54.9 %; Mean Corpuscular Hgb Conc 31.3 g/dL (32-36); Monocytes # (manual) 0.11 K/uL (0.11-0.59); Monocytes % (manual) 0.9 %; Neutrophils % (manual) 39.8 %; RBC Morphology Unremarkable
[2019-06-18] MEDS ORDERED: DiphenhydrAMINE HCL 50 MG/ML VIAL IV PRN (17:45)
[2019-06-18] MEDS: ACETAMINOPHEN 325 MG TAB PO PRN ×2 (17:53→22:34)
[2019-06-18] MEDS: INSULIN ASPART 100 UNITS/ML 3 ML PEN SC SCH ×2 (18:13→20:20)
[2019-06-18] MEDS: LORazepam 0.5 MG TAB PO PRN (20:15)
[2019-06-18] MEDS: LINEZOLID 600 MG TAB PO SCH (20:18)
--- NOTE | 2019-06-18 20:18 | Pharmacy Report ---
Glycemic Control Consultation - Date of Service June 18, 2019 - Scope Scope: Glycemic Pharmacist consulted by Dr. Christian on 06/18/19 for glycemic control and to write orders per [facility] inpatient glycemic control protocol - Objective Weight: 95.1 kg Accuchecks BSG (last 24hrs): 06/18/19 06/18/19 16:09 16:51 Glucose 134 H POC Glucose 134 H Laboratory Data (last 24hrs): 06/18/19 16:09 Potassium 4.0 Carbon Dioxide 26 Anion Gap 8.0 Creatinine 1.40 H Est Cr Clr Drug Dosing 38.8 HbA1c: - Ordered with AM labs for 06/19/19 - Most recent A1c = 5.8% on 05/13/19 - Recent Pertinent Medications Outpatient Anti-diabetic Regimen: * Metformin 500 mg PO QAM * A1c = 5.8 % (05/13/19) The patient is currently receiving: * No antihyperglycemic medications have been ordered prior to consult Risk Factors for Insulin Resistance: * Infection: Possible pneumonia - Cefepime 2 g IV every 12 hours, Linezolid 600 mg PO BID * Upcoming Surgery: Patient scheduled for cardiac catheterization on morning of 06/19/19 * Diet: Heart Healthy, Low Na (Will be NPO on 06/19/19 @ 0000 for surgery) - Assessment & Plan Assessment & Plan: ASSESSMENT: * 73 year old F who is a direct admit from [facility] to undergo cardiac catheterization on the morning of 06/19/19 * Type 2 Diabetes Mellitus is well-controlled at home on low-dose Metformin PLAN FOR INPATIENT GLYCEMIC CONTROL: * Holding outpatient oral diabetes medications * Basal Insulin * None given well controlled diabetes with oral metformin alone * Bolus insulin * NovoLog per scale ACHS or Q6hrs while NPO * Goal Range: Low 120 mg/dL - High 160 mg/dL given patient's age and well- controlled diabetes * Correction Factor: 25 mg/dL/unit * No carb ratio for now as patient will be NPO after midnight for her surgery * Please note that the plan above was derived based on current level of insulin resistance and hospital stress. These recommendations are appropriate for inpatient admission only. Plan of care upon discharge will need to be reassessed to avoid potential outpatient hypo/hyperglycemia. Thank you.
[2019-06-18] MEDS: ATORVASTATIN 40 MG TAB PO SCH (20:19)
[2019-06-18] MEDS: carvediloL 25 MG TAB PO SCH (20:20)
[2019-06-18] MEDS: SACUBITRIL-VALSARTAN 24-26 MG TAB PO SCH (20:21)
[2019-06-18] MEDS: CEFEPIME 2,000 MG in SYRINGE 7.5 ML IV SCH (20:22)
[2019-06-18] MEDS ORDERED: APIXABAN 5 MG TABLET PO SCH ×2 (21:00)
[2019-06-18] MEDS ORDERED: INSULIN ASPART 100 UNITS/ML 3 ML PEN SC SCH (21:00)
[2019-06-19 06:32] LABS: Basophils # (auto) 0.04 K/uL (0-0.2); Basophils % (auto) 0.4 %; Eosinophils # (auto) 0.23 K/uL (0-0.5); Eosinophils % (auto) 2.2 %; Hematocrit (blood only) 28.7 % (37-47); Hemoglobin 9.1 g/dL (12.0-16.0); Immature Granulocytes # (auto) 0.04 K/uL (0.00-0.02); Immature Granulocytes % (auto) 0.4 %; Lymphocytes # (auto) 4.31 K/uL (1.2-3.4); Lymphocytes % (auto) 40.6 %; Mean Corpuscular Hemoglobin 31.4 pg (25-34); Mean Corpuscular Hgb Conc 31.7 g/dL (32-36); Monocytes # (auto) 0.86 K/uL (0.11-0.59); Monocytes % (auto) 8.1 %; Neutrophils # (auto) 5.14 K/uL (1.4-6.5); Neutrophils % (auto) 48.3 %; Platelet Count 203 K/uL (130-400); RDW Coefficient of Variation 14.8 % (11.5-14.5); RDW Standard Deviation 53.8 fL (36.4-46.3); White Blood Count 10.62 K/uL (4.8-10.8)
[2019-06-19 06:58] LABS: Albumin Level 2.3 gm/dl (3.4-5.0); BUN Creatinine Ratio 21.6 (10-20); Calcium 8.8 mg/dl (8.5-10.1); Creatinine Clr Calc Pharmacy 41.7 ml/min; Est GFR (African American) 46.5; Est GFR (Non-African American) 40.1; Potassium 4.1 mmol/L (3.5-5.1)
[2019-06-19 06:59] LABS: Estimated Average Glucose 120 mg/dl; Hemoglobin A1C 5.8 % (4.5-5.6)
[2019-06-19 07:00] LABS: Albumin Globulin Ratio 0.7 (0.9-2); Bilirubin,Total 0.9 mg/dl (0.2-1); Globulin 3.2 gm/dl (2.5-4.0); Total Protein 5.5 gm/dl (6.4-8.2)
[2019-06-19] MEDS ORDERED: PERFLUTREN LIPID MICROSPHERE (DEFINITY) IV ONE (07:04)
[2019-06-19] MEDS: LINEZOLID 600 MG TAB PO SCH ×2 (07:42→20:26)
[2019-06-19] MEDS: FLUTICASONE PROPIONATE NA SPR 16 GM BTL NAE SCH (07:43)
[2019-06-19] MEDS: SACUBITRIL-VALSARTAN 24-26 MG TAB PO SCH ×2 (07:43→20:25)
[2019-06-19] MEDS: carvediloL 25 MG TAB PO SCH ×2 (07:44→20:25)
[2019-06-19] MEDS: AMIODARONE 200 MG TAB PO SCH (07:46)
[2019-06-19] MEDS: CEFEPIME 2,000 MG in SYRINGE 7.5 ML IV SCH ×2 (07:54→20:28)
[2019-06-19] MEDS: FLUTICASONE/VILANTEROL INHALER INH SCH (07:54)
[2019-06-19] MEDS ORDERED: MIDAZOLAM HCL 1 MG/ML 2ML VIAL ONE (08:51)
[2019-06-19] MEDS ORDERED: NiCARDipine HCL INJ 2.5 MG/ML 10 ML AMP ONE (08:51)
[2019-06-19] MEDS ORDERED: fentaNYL citrate 100 MCG/2 ML VIAL ONE (08:51)
[2019-06-19] MEDS ORDERED: HEPARIN (PORCINE) 1000 UNIT/ML 10 ML (CATH LAB USE ONLY) ONE (08:51)
[2019-06-19] MEDS ORDERED: NITROGLYCERIN/D5W 100MCG/ML 20ML SYR ONE (08:52)
[2019-06-19] MEDS: INSULIN ASPART 100 UNITS/ML 3 ML PEN SC SCH ×4 (08:54→20:51)
[2019-06-19] MEDS ORDERED: CITALOPRAM 20 MG TAB PO SCH (09:00)
--- NOTE | 2019-06-19 09:24 | Pre Anesthesia Assessment ---
Date of Service June 19, 2019 Pre Sedation Assessment Vital Signs Temp Pulse Resp BP Pulse Ox 06/19/19 07:30 36.3 C L 56 L 20 138/74 96 06/19/19 03:03 36.7 C 76 18 138/75 93 06/18/19 23:14 36.7 C 77 20 133/72 94 06/18/19 20:19 36.7 C 75 20 153/85 H 93 06/18/19 16:30 36.6 C 16 122/74 93 Cardiovascular + regular rate Respiratory + respiratory effort normal Pre-Sedation Airway Assessment Smoking Status: Never smoker Hx Sleep Apnea: No Hx Difficult Intubation: No Short, Thick Neck: No Thyromental Distance: > or= 3.5 Finger Breadths Oral Cavity: + WNL Mallampati Class: III ASA: ASA3 Procedure Planning Contraindications for Sedation: none Current Medications Reviewed: Yes Notes The planned sedation has been discussed with the patient. Informed Consent was obtained. I have identified the patient, determined the appropriateness of sedation and have assessed the patient immediately prior to the procedure. All medicine(s) and interventions are by my order.
--- NOTE | 2019-06-19 09:28 | Cardiology Progress Note ---
Date of Service June 19, 2019 Assessment & Plan (1) CHF (congestive heart failure): The patient presented to [facility] with acute on chronic systolic CHF and pneumonia. She has done well with intravenous diuretics and now appears euvolemic. This hospitalization represents her 3rd episode of CHF in less than 6 weeks. Proceed with a cardiac catheterization to rule out myocardial ischemia as a cause of her decompensation. (2) Ischemic cardiomyopathy: Echocardiogram performed during her last hospitalization noted an ejection fraction 30-35% with an akinetic and aneurysmal apex, and akinesis of the inferior wall. Continue carvedilol and Entresto. (3) PAF (paroxysmal atrial fibrillation): Remains in sinus rhythm on oral amiodarone. Zaina remains on hold for her cardiac catheterization. (4) Hypertension: Adequate control on current regimen. (5) Dyslipidemia: Continue atorvastatin. Subjective The patient is resting comfortably in bed without complaints of chest pain or dyspnea. Her daughter and son are at the bedside. We have had a long d iscussion regarding the need for cardiac catheterization. The patient voices an understanding and agrees to proceed. Physical Exam Physical Exam: In general is well-developed well-nourished white female no acute distress. HEENT exam is negative. Neck is supple with full carotid upstrokes. No carotid bruits. Jugular is pressure is flat at 90 degrees. No thyromegaly. Cardiovascular exam reveals a regular rhythm with distant heart sounds. No obvious murmurs. No S3. Lungs are clear without rales, rhonchi, or wheezes.. Abdomen is obese without bruits. Extremities reveal intact radial artery pulses bilaterally. Trace pretibial edema is noted. Results & Data Vital Signs (Past 12 Hours) Vital Signs Temp Pulse Resp BP Pulse Ox 06/19/19 07:30 36.3 C L 56 L 20 138/74 96 06/19/19 03:03 36.7 C 76 18 138/75 93 06/18/19 23:14 36.7 C 77 20 133/72 94 Laboratory Results CBC notes hemoglobin 9.1, hematocrit 28.7, white count 10.6, platelet count of [id number].Electrolytes note sodium 141, potassium 4.1, chloride 109, bicarb 24, BUN 20, creatinine 1.3, glucose of 124. Diagnostic Findings EKG notes sinus rhythm with occasional PVCs. There is an old anteroseptal OR pattern. ekg monitor tech is benign. PG Care Time/CCT Total # of Minutes Spent Total Time Spent with Patient: Total time spent is greater than 50% in coordination of care (as documented) at patient's floor/unit and/or counseling patient: (1) CHF (congestive heart failure) Heart failure chronicity: acute on chronic Heart failure type: systolic Qualified Code(s): I50.23 - Acute on chronic systolic (congestive) heart failure
--- NOTE | 2019-06-19 09:55 | Post Operative Brief Note ---
Cardiology Brief Post Op Date of Surgery June 19, 2019 Pre & Post Diagnosis Operation Date: 06/19/19 09:00 <No data on this case meets the specified criteria> Procedure LHC, coronaries Chronic total LAD and RCA, ostial Lcx and D1 Elevated LVEDP Plan: CABG Carton Gluing Machine Operator Edgardo Sanders MD Branding Machine Operator none Estimated Blood Loss 5 Findings See Below [facility] Cardiac Procedure Charge CV Invasive Imaging Procedure 1: CV Invasive Monitoring: Cath Placement Coronary Artery W/Left
[2019-06-19] MEDS ORDERED: ONDANSETRON INJ 2 MG/ML 2 ML VIAL IV PRN (11:24)
--- NOTE | 2019-06-19 11:32 | Pharmacy Report ---
Pharmacy Glycemic Sign Off Nt - Date of Service June 19, 2019 - Assessment & Plan ASSESSMENT: * Excellent outpatient control (HbA1c remains 5.8% on 06/19/19) on metformin monotherapy * BSG's ranged 109-134 mg/dL thus far with no insulin administered * Novolog parameters at weight-based moderate stress estimate * CHO ratio active for when patient is ordered a diet * No Lantus ordered/needed as AM fasting BSG 124 mg/dL * Dr. Edwards is aware and on board with pharmacy signing off glycemic management at this time PLAN FOR INPATIENT GLYCEMIC CONTROL: * Continue NovoLog per scale ACHS/Q6hrs while NPO * Goal range = 110-140 mg/dl * CF = 25 mg/dl/unit * CR = 1 unit for ever 8 g CHO consumed * Pharmacy is signing off of glycemic consult and will no longer be making adjustments to inpatient regimen. Please feel free to re-consult if needed. Thank you. DISCHARGE RECOMMENDATIONS: * Resume home metformin
[2019-06-19] MEDS ORDERED: FUROSEMIDE 40 MG TAB PO SCH (14:45)
[2019-06-19] MEDS: ATORVASTATIN 40 MG TAB PO SCH (20:26)
[2019-06-19] MEDS: ACETAMINOPHEN 325 MG TAB PO PRN (20:30)
[2019-06-19] MEDS: LORazepam 0.5 MG TAB PO PRN (20:30)
--- NOTE | 2019-06-19 20:46 | Hospitalist Progress Note ---
Date of Service June 19, 2019 Assessment & Plan (1) Acute on chronic systolic heart failure: Volume status improving. Echo today with EF 30-35%; EF unchanged from prior echo. s/p diuresis at [facility] and here at [facility] During heart cath today her LVEDP was elevated at 30. Will continue diuresis with lasix and repeat labs in am. Cont coreg BID, entresto, I's and O's, daily weights, etc. Systolic CHF is due to ischemic cardiomyopathy. (2) CAD (coronary artery disease): Triple-vessel as seen on heart cath today by Dr Sanders. Consideration for CABG advised. Patient opting to transfer to [place] for CT surgery evaluation. Troponin mildly elevated at [facility] prior to transfer here. Troponin normalized here on 06/18. No ischemic symptoms today. Cont statin (LDL was low 100s in May). Consider adding zetia. Cont beta earl. Add aspirin 81mg daily. (3) Ischemic cardiomyopathy: See systolic CHF above Echo w/ multiple wall motion abnormalities c/w her heart cath results today (4) PAF (paroxysmal atrial fibrillation): Cont amiodarone. Cont eliquis. Cont coreg. Tele stable; NSR. (5) Depression: Cont SSRI (6) Dyslipidemia: Continue atorvastatin 80 mg nightly Consider zetia as LDL is not at goal and in light of severe CAD (7) Diabetes mellitus type 2 in obese: Glycemic control per pharmacy but since control is excellent they will sign off. Last a1c 5.8% c/w pre-DM state rather than full-blown T2DM. (8) COPD (chronic obstructive pulmonary disease): No exacerbation at this time. Cough is likely due to pulm edema rather than COPD. Continue Breo Ellipta 1 puff once a day. Continue combivent prn. (9) Pneumonia: Currently on cefepime/zyvox. Received Rx for hospital-acquired pneumonia at [place]. I am not convinced her pulmonary symptoms are due to pneumonia. This all may be due to pulmonary edema. Strongly consider d/c of abx. (10) Hypertension: Controlled on current regimen of meds (11) CLL (chronic lymphocytic leukemia): Stable CBC acceptable (12) Chronic kidney disease, stage 3a: Cr stable today BMP am (13) DVT prophylaxis: was on systemic heparin drip this has been d/c family updated at bedside today will make arrangements for transfer to [place] in am (Dr Sanders to assist with such) Subjective patient is s/p heart cath today by Dr Sanders. this demonstrated severe triple-vessel CAD and he is recommending transferring to tertiary care for consideration of CABG. I saw the patient post-cath and she was resting comfortably. She complained of cough with sputum production but no dyspnea or orthopnea. She and her family were busy trying to decide where to transfer to have the CABG done. She was leaning towards [facility] since it is close to her home. Tele stable overnight. Review of Systems Constitutional: no fever and no chills Respiratory: + cough and + sputum production Cardiovascular: no chest pain, no orthopnea, no paroxysmal nocturnal dyspnea and no edema Gastrointestinal: no abdominal pain, no nausea and no vomiting Physical Exam Constitutional: + obese and comfortable; no acute distress and no altered mental status ENMT: external ear and nose normal, oropharynx normal Respiratory: no respiratory distress Auscultation: + diminished lung sounds (bases) and + rales (bases); no wheezes Cardiovascular: Rate/Rhythm: regular rate and regular rhythm Heart Sounds: normal S1 and normal S2; no murmur Vessels: + JVD (mild), posterior tibial pulses present and dorsalis pedis pulses present Extremities: no edema Gastrointestinal (Abdomen): normal bowel sounds, soft, nontender, no hepatosplenomegaly Skin: cath site right wrist w/o hematoma Psychiatric: A+Ox3, euthymic affect Results & Data Vital Signs (Past 12 Hours) Vital Signs Temp Pulse Pulse Resp BP Pulse Ox 06/19/19 18:58 36.6 C 66 18 122/72 91 06/19/19 15:34 36.5 C 61 20 119/64 96 06/19/19 14:36 59 L 127/68 100 06/19/19 13:36 58 L 112/61 91 06/19/19 12:36 57 L 127/68 93 06/19/19 12:06 57 L 125/64 90 06/19/19 11:36 57 L 135/68 90 06/19/19 11:06 58 L 143/75 H 88 L 06/19/19 10:51 59 L 143/75 H 91 06/19/19 10:36 58 L 126/74 92 10/07/19 10:28 59 L 06/19/19 10:25 36.3 C L 58 L 17 125/71 92 06/19/19 10:18 36.7 C 59 L 17 122/70 92 Laboratory Results Laboratory Results - last 24 hr 06/19/19 06/19/19 06/19/19 06:17 06:17 06:17 WBC 10.62 RBC 2.90 L Hgb 9.1 L Hct 28.7 L MCV 99.0 MCH 31.4 MCHC 31.7 L RDW Std Deviation 53.8 H RDW Coeff of Nino 14.8 H Plt Count 203 MPV 10.0 Immature Gran % (Auto) 0.4 Neut % (Auto) 48.3 Lymph % (Auto) 40.6 [place] % (Auto) 8.1 Eos % (Auto) 2.2 Baso % (Auto) 0.4 Immature Gran # (Auto) 0.04 H Neut # (Auto) 5.14 Lymph # (Auto) 4.31 H [place] # (Auto) 0.86 H Eos # (Auto) 0.23 Baso # (Auto) 0.04 Sodium 141 Potassium 4.1 Chloride 109 H Carbon Dioxide 24 Anion Gap 8.0 BUN 28 H Creatinine 1.30 H Est Cr Clr Drug Dosing 41.7 Est GFR ( Amer) 46.5 Est GFR (Non-Af Amer) 40.1 BUN/Creatinine Ratio 21.6 H Glucose 124 H POC Glucose Estimat Average Glucose 120 Hemoglobin A1c 5.8 H Calcium 8.8 Total Bilirubin 0.9 AST 18 ALT 22 Alkaline Phosphatase 85 Total Protein 5.5 L Albumin 2.3 L Globulin 3.2 Albumin/Globulin Ratio 0.7 L 06/19/19 06/19/19 06/19/19 07:52 10:53 16:48 WBC RBC Hgb Hct MCV MCH MCHC RDW Std Deviation RDW Coeff of Nino Plt Count MPV Immature Gran % (Auto) Neut % (Auto) Lymph % (Auto) [place] % (Auto) Eos % (Auto) Baso % (Auto) Immature Gran # (Auto) Neut # (Auto) Lymph # (Auto) [place] # (Auto) Eos # (Auto) Baso # (Auto) Sodium Potassium Chloride Carbon Dioxide Anion Gap BUN Creatinine Est Cr Clr Drug Dosing Est GFR ( Amer) Est GFR (Non-Af Amer) BUN/Creatinine Ratio Glucose POC Glucose 124 H 130 H 107 H Estimat Average Glucose Hemoglobin A1c Calcium Total Bilirubin AST ALT Alkaline Phosphatase Total Protein Albumin Globulin Albumin/Globulin Ratio 06/19/19 20:32 WBC RBC Hgb Hct MCV MCH MCHC RDW Std Deviation RDW Coeff of Nino Plt Count MPV Immature Gran % (Auto) Neut % (Auto) Lymph % (Auto) [place] % (Auto) Eos % (Auto) Baso % (Auto) Immature Gran # (Auto) Neut # (Auto) Lymph # (Auto) [place] # (Auto) Eos # (Auto) Baso # (Auto) Sodium Potassium Chloride Carbon Dioxide Anion Gap BUN Creatinine Est Cr Clr Drug Dosing Est GFR ( Amer) Est GFR (Non-Af Amer) BUN/Creatinine Ratio Glucose POC Glucose 122 H Estimat Average Glucose Hemoglobin A1c Calcium Total Bilirubin AST ALT Alkaline Phosphatase Total Protein Albumin Globulin Albumin/Globulin Ratio PG Care Time/CCT Total # of Minutes Spent Total Time Spent with Patient: Total time spent is greater than 50% in coordination of care (as documented) at patient's floor/unit and/or counseling patient: (1) Depression Depression Type: other depression Qualified Code(s): F32.89 - Other specified depressive episodes (2) COPD (chronic obstructive pulmonary disease) COPD type: unspecified COPD Qualified Code(s): J44.9 - Chronic obstructive pulmonary disease, unspecified (3) Pneumonia Pneumonia type: due to unspecified organism Laterality: bilateral Lung location: lower lobe of lung Qualified Code(s): J18.1 - Lobar pneumonia, unspecified organism (4) Hypertension Hypertension type: essential hypertension Qualified Code(s): I10 - Essential (primary) hypertension (5) CAD (coronary artery disease) Coronary Disease-Associated Artery/Lesion type: [place] artery [place] vs. transplanted heart: [place] heart Associated angina: without angina Qualified Code(s): I25.10 - Atherosclerotic heart disease of [place] coronary artery without angina pectoris
[2019-06-19] MEDS ORDERED: APIXABAN 5 MG TABLET PO SCH (21:00)
--- NOTE | 2019-06-19 21:01 | Post Anesthesia Assessment ---
Date of Service June 19, 2019 Post Sedation Assessment Vital Signs Temp Pulse Pulse Resp BP Pulse Ox 06/19/19 18:58 36.6 C 66 18 122/72 91 06/19/19 15:34 36.5 C 61 20 119/64 96 06/19/19 14:36 59 L 127/68 100 06/19/19 13:36 58 L 112/61 91 06/19/19 12:36 57 L 127/68 93 06/19/19 12:06 57 L 125/64 90 06/19/19 11:36 57 L 135/68 90 06/19/19 11:06 58 L 143/75 H 88 L 06/19/19 10:51 59 L 143/75 H 91 06/19/19 10:36 58 L 126/74 92 06/19/19 10:28 59 L 06/19/19 10:25 36.3 C L 58 L 17 125/71 92 06/19/19 10:18 36.7 C 59 L 17 122/70 92 06/19/19 07:30 36.3 C L 56 L 20 138/74 96 06/19/19 03:03 36.7 C 76 18 138/75 93 06/18/19 23:14 36.7 C 77 20 133/72 94 Recovery Score Activity: Moves 4 extremities Respiration: Deep Breath/Cough Circulation: +/-20% PreAnes Value Consciousness: Fully Awake Oxygen Saturation: > 92% On Room Air Post Sedation Plan On clinical assessment, the patient appears to have tolerated the sedation without complications. Patient is recovering as anticipated. Patient will continue to be monitored by nursing and may be discharged when sedation discharge criteria are met per below protocol. Upon Completions of procedure and additional 15 minutes continue every 5 minute vital signs and the P.A.R. score; then discharge to a Phase I or Fast Track to Phase II per the following guidelines: * Discharge Patient to appropriate Phase II area if PAR is 8 or greater or return to pre- procedure baseline. The post - procedure orders will be as directed. * If PAR score is less than 8 or not return to pre-procedure baseline then patient will follow Phase I monitoring till PAR is reached for Phase II. The Phase I may be done in procedure room or may call to secure a Phase I area. * If naloxone or flumazenil are used for reversal, hold in Phase I for continued monitoring from when last reversal dose was given for a minimum of 60 minutes or longer pending the nurse and/or physician discretion of patient condition before discharge to Phase II. Please call the Sedation Physician to re-evaluate and complete post-note for discharge to Phase II area. Do NOT discharge from procedure sedation or Phase 1 until post- sedation evaluation note is complete by procedure /sedation MD Sedation Discharge Instructions to be given to the patient at discharge to home.
--- NOTE | 2019-06-19 21:06 | Cardiac Catheterization ---
ACC Data: Cloud Architect Cardiac Status Clinical evaluation leading to the procedure CAD Presenation: Non STEMI Diagnostic Physicians Name: Edgardo Sanders MD Closure Device Recommendations: CABG Cardiac Cath Procedure Full Procedure Date June 19, 2019 Pre-Procedure Diagnosis Pre-Procedure Diagnosis: CHF AUC Score AUC Score: 7 Post-Procedure Diagnosis Post-Procedure Diagnosis: Severe CAD Procedure(s) Performed Procedure(s) Performed: Coronary Angiography and Left Heart Cath Production Operator Edgardo Sanders MD Glass Grinder(s) none Estimated Blood Loss Estimated Blood Loss: 5cc Medication(s) Medication(s): Fentanyl, Heparin, Nicardipine, Nitroglycerin and Versed Summary of Findings Coronaries: Left Main: Normal in size. Bifurcates into the LAD and Circumflex Left anterior descending: Large, transapical. Sub-total occlusion in the mid vessel after D1. Minimal flow to distal vessel. D1 is large with a 99% ostial stenosis. Left circumflex: Non-dominant. 99% ostial stenosis with additional 70% stenosis in the mid-vessel of a large 1st OM Right coronary: Dominant. Subtotal occlusion with some distal filling from left- right collaterals. Multiple severe stenosis throughout the course of the proximal vessel without filling of the distal segments antegrade. Hemodynamics Rest Ao:: 124/64 mmHg Final Ao: 138/59 mmHg LV: 135/13 mmHg LVEDP 30 mmHg Recommendations Recommendations: CABG Radiation Exposure (mGy) q Contrast (mls) q I attest to the content of the Intraoperative Record and any orders documented therein. Any exceptions are noted below.
[2019-06-20 06:03] LABS: Hematocrit (blood only) 30.2 % (37-47); Hemoglobin 9.7 g/dL (12.0-16.0); Mean Corpuscular Hemoglobin 31.4 pg (25-34); Mean Corpuscular Hgb Conc 32.1 g/dL (32-36); Mean Corpuscular Volume 97.7 fL (80-100); Mean Platelet Volume 9.8 fL (7.4-10.4); Platelet Count 211 K/uL (130-400); RDW Coefficient of Variation 14.6 % (11.5-14.5); RDW Standard Deviation 52.2 fL (36.4-46.3); Red Blood Count 3.09 M/uL (4.2-5.4); White Blood Count 10.23 K/uL (4.8-10.8)
[2019-06-20 06:36] LABS: Albumin Level 2.4 gm/dl (3.4-5.0); BUN Creatinine Ratio 21.1 (10-20); Calcium 9.1 mg/dl (8.5-10.1); Creatinine Clr Calc Pharmacy 48.8 ml/min; Est GFR (African American) 55.6
[2019-06-20 06:39] LABS: Albumin Globulin Ratio 0.7 (0.9-2); Bilirubin,Total 0.7 mg/dl (0.2-1); Globulin 3.3 gm/dl (2.5-4.0); Total Protein 5.7 gm/dl (6.4-8.2)
[2019-06-20 06:46] LABS: Appearance Urine Cloudy (Clear); Bilirubin Urine Negative (Negative); Blood Urine Negative (Negative); Color Urine Yellow; Epithelial Cell Urine Auto >30 /lpf (0-5); Glucose Urine UA Negative (Negative); Ketones Urine Trace (Negative); Leukocyte Esterase Urine 2+ (Negative); Nitrite Urine Negative (Negative); Protein Urine 1+ (Negative); Specific Gravity Urine 1.032 (1.000-1.030); Urobilinogen Urine Negative (Negative); WBC Urine Automated >30 /hpf (0-5)
[2019-06-20 07:02] LABS: Basophils # (auto) 0.04 K/uL (0-0.2); Basophils % (auto) 0.4 %; Eosinophils # (auto) 0.27 K/uL (0-0.5); Eosinophils % (auto) 2.6 %; Immature Granulocytes # (auto) 0.04 K/uL (0.00-0.02); Immature Granulocytes % (auto) 0.4 %; Lymphocytes # (auto) 5.17 K/uL (1.2-3.4); Lymphocytes % (auto) 50.5 %; Monocytes # (auto) 0.93 K/uL (0.11-0.59); Monocytes % (auto) 9.1 %; Neutrophils # (auto) 3.78 K/uL (1.4-6.5); Smudge Cells Present
[2019-06-20 07:04] LABS: RBC Urine Automated 0-4 /hpf (0-4)
[2019-06-20 07:05] LABS: Bacteria Urine Automated 1+ (Negative)
[2019-06-20] MEDS: carvediloL 25 MG TAB PO SCH (08:02)
[2019-06-20] MEDS: FLUTICASONE/VILANTEROL INHALER INH SCH (08:04)
[2019-06-20] MEDS: SACUBITRIL-VALSARTAN 24-26 MG TAB PO SCH (08:04)
[2019-06-20] MEDS: AMIODARONE 200 MG TAB PO SCH (08:04)
[2019-06-20] MEDS: FLUTICASONE PROPIONATE NA SPR 16 GM BTL NAE SCH (08:05)
[2019-06-20] MEDS ORDERED: APIXABAN 5 MG TABLET PO SCH (09:00)
[2019-06-20] MEDS ORDERED: ASPIRIN 81 MG ECTAB PO SCH (09:00)
[2019-06-20] MEDS ORDERED: FUROSEMIDE 40 MG TAB PO SCH (09:00)
[2019-06-20] MEDS: LORazepam 0.5 MG TAB PO PRN ×2 (09:12→14:16)
[2019-06-20] MEDS: INSULIN ASPART 100 UNITS/ML 3 ML PEN SC SCH ×2 (09:13→12:00)
--- NOTE | 2019-06-20 11:04 | Cardiology Progress Note ---
Date of Service June 20, 2019 Assessment & Plan (1) CAD (coronary artery disease): Cardiac catheterization performed yesterday noted a subtotaled mid LAD stenosis, a 99% D1 stenosis, 99% ostial LCx, and a subtotaled proximal RCA. Dr. Driver reviewed the films with Dr. Pike and they both agreed that bypass surgery would be the best approach. The patient has chosen [place] for her surgery. I discussed the case with Dr. Morales, a actuarial technician in [place], and left a message for Dr. Alarcon, a CT surgeon at that same institution. (2) Ischemic cardiomyopathy: Echocardiogram notes an ejection fraction 30-35% with a dyskinetic apex, and akinesis of the inferoposterior wall. Continue carvedilol and Entresto. (3) CHF (congestive heart failure): The patient presented to [facility] with acute on chronic systolic CHF and pneumonia. She has done well with intravenous diuretics and is now euvolemic. This hospitalization represents her 3rd episode of CHF in less than 5 weeks. Suspect her severe coronary artery disease is the etiology of her recent events. (4) PAF (paroxysmal atrial fibrillation): Remains in sinus rhythm on oral amiodarone. Eliquis on hold for her cardiac surgery. (5) Hypertension: Adequate control. (6) Dyslipidemia: Continue atorvastatin. Subjective The patient is resting comfortably in bed without complaints of chest pain or dyspnea. Her daughter is at the bedside. Decision has been made to proceed with bypass surgery at [facility]. Physical Exam Physical Exam: In general is well-developed well-nourished white female no acute distress. HEENT exam is negative. Neck is supple with full carotid upstrokes. No carotid bruits. Jugular is pressure is flat at 90 degrees. No thyromegaly. Cardiovascular exam reveals a regular rhythm with distant heart sounds. No obvious murmurs. No S3. Lungs are clear without rales, rhonchi, or wheezes.. Abdomen is obese without bruits. Extremities reveal a try dressing across the right radial artery. Trace pretibial edema is noted. Results & Data Vital Signs (Past 12 Hours) Vital Signs Temp Pulse Pulse Resp BP Pulse Ox 06/20/19 07:33 36.6 C 57 L 18 134/73 94 06/20/19 03:41 36.7 C 57 L 18 130/69 93 06/20/19 00:02 55 L 06/19/19 23:40 36.5 C 55 L 18 105/57 L 92 PG Care Time/CCT Total # of Minutes Spent Total Time Spent with Patient: Total time spent is greater than 50% in coordination of care (as documented) at patient's floor/unit and/or counseling patient: (1) CAD (coronary artery disease) Associated angina: without angina Coronary Disease-Associated Artery/Lesion type: [place] artery [place] vs. transplanted heart: [place] heart Qualified Code(s): I25.10 - Atherosclerotic heart disease of [place] coronary artery without angina pectoris (2) CHF (congestive heart failure) Heart failure chronicity: acute on chronic Heart failure type: systolic Qualified Code(s): I50.23 - Acute on chronic systolic (congestive) heart failure (3) Hypertension Hypertension type: essential hypertension Qualified Code(s): I10 - Essential (primary) hypertension
--- NOTE | 2019-06-20 11:21 | Discharge Summary ---
Date of Service date of admission: June 18, 2019 date of discharge: June 20, 2019 Admission HPI Per Admitting Provider Patient is a 73 year old female with past medical history of chronic systolic congestive heart failure, chronic lymphocytic leukemia, ischemic cardiomyopathy, paroxysmal atrial fibrillation on Apixaban and amiodarone, hypertension, depression, GERD, dyslipidemia, COPD, history of CVA, hypertension, diabetes mellitus type 2 who is a direct admit from [facility] per system admin Dr. Robison for acute CHF exacerbation and possible pneumonia. She had a minimal NSTEMI at [place] with mild troponin elevation. She was also transferred for consideration of cardiac catheterization tomorrow by [facility] cardiology. Patient was admitted to [facility] on 06/16/2019. Per records she was treated for acute/chronic systolic CHF as well as possible underlining pneumonia (RUL/RLL per CT chest report from [place]). Patient was treated with IV Lasix 40 mg twice a day. For pneumonia patient was treated with IV vancomycin and IV cefepime 2 g every 12 hours. She clinically improved while at [facility] and upon transfer to [facility] had stable O2 sats in room air. Of note - patient was admitted to [facility] from 05/12/19 to 05/16/19 for suspected pneumonia and acute/chronic systolic CHF. Unfortunately she was readmitted on 05/23 to 05/25 for recurrent decompensated CHF as well. Principal Diagnosis acute/chronic systolic CHF severe, triple-vessel CAD Discharge Exam Constitutional + obese and comfortable; no acute distress and no altered mental status ENMT external ear and nose normal, oropharynx normal Respiratory no respiratory distress Auscultation: + diminished lung sounds (bases); no crackles and no wheezes Cardiovascular Rate/Rhythm: regular rate and regular rhythm Heart Sounds: normal S1 and normal S2; no murmur Vessels: posterior tibial pulses present and dorsalis pedis pulses present; no JVD Extremities: no edema Gastrointestinal (Abdomen) normal bowel sounds, soft, nontender, no hepatosplenomegaly Skin right wrist without hematoma (former cath site) Psychiatric A+Ox3, euthymic affect Discharge Data Allergies Allergy/AdvReac Type Severity Reaction Status Date / Time bee venom protein (honey bee) Allergy Severe Anaphylaxis Verified 06/07/19 13:40 Penicillins Allergy Mild Rash Verified 06/07/19 13:40 Sulfa (Sulfonamide Allergy Mild Rash Verified 06/07/19 13:40 Antibiotics) Consultations [facility] Cardiology - Edgardo Sanders MD Procedures Performed Operation Date: 06/19/19 09:00 Left Heart Catheterization - Edgardo Sanders MD Summary of Findings Coronaries: Left Main: Normal in size. Bifurcates into the LAD and Circumflex Left anterior descending: Large, transapical. Sub-total occlusion in the mid vessel after D1. Minimal flow to distal vessel. D1 is large with a 99% ostial stenosis. Left circumflex: Non-dominant. 99% ostial stenosis with additional 70% stenosis in the mid-vessel. Right coronary: Dominant. Subtotal occlusion with some distal filling from left- right collaterals. Multiple areas of severe stenosis throughout the course of the proximal vessel without filling of the distal segments antegrade. Hemodynamics: Rest Ao:: 124/64 mmHg Final Ao: 138/59 mmHg LV: 135/13 mmHg LVEDP 30 mmHg Ordered Studies Echocardiogram: * EF 30-35% * mild MR * aortic sclerosis without aortic stenosis * apical dyskinesis with akinesis of mid-distal inferior and posterior clarke * remaining segments with mild hypokinesis Chest x-ray: IMPRESSION: Interval improvement in the pulmonary edema and trace right pleural effusion. Hospital Course (1) Acute on chronic systolic heart failure: The patient's volume status was already improving upon transfer from [facility] to [facility]. By report she had been in acute hypoxic respiratory failure requiring BIPAP upon initial presentation to [place]. With aggressive diuresis her pulmonary symptoms improved and her O2 requirement was weaned off. She was given additional IV diuresis and then transitioned back to oral lasix while here at [facility]. Repeat Echo on 06/19/19 demonstrated an EF 30-35%; EF was unchanged from prior echo dated 05/13/19. She was maintained on coreg BID, entresto, and her diuretics. Systolic CHF is due to ischemic cardiomyopathy. [facility] her volume status was significantly improved/approaching euvolemia. (2) CAD (coronary artery disease): By history the patient had an anterior wall GA in June 2011. She was treated medically at that time. Exact details of that event are otherwise not known. Records indicate, however, that over the last 5-10 years there has been compliance issues. The patient underwent diagnostic heart catheterization on 06/19/[address] Edgardo Sanders. Triple-vessel CAD was found. See full report above. Consideration for CABG was advised. Patient requested transfer to [facility] for CT surgery evaluation. Troponin was mildly elevated at [facility] prior to transfer here. Troponin was normal at [facility] on 06/18/19. She has not reported ischemic symptoms during this stay. She remains on statin agent (LDL was low 100s in May 2019 -- consider adding zetia to her lipitor). Cont beta earl. Added aspirin 81mg daily during this admission. On 06/20/19 I spoke with CARRIE Lamb, CT surgery at [facility], who accepted Mrs Diaz in transfer on behalf of surgeon Dr Jon Suero. In light of the severe CAD found it is highly suspected that the patient has had ongoing ischemia which has contributed significantly to her bcilgxzko-vs-epnfxce systolic CHF and her ongoing pulmonary symptoms. (3) Ischemic cardiomyopathy: See systolic CHF above Echo w/ multiple wall motion abnormalities c/w her heart cath results. (4) PAF (paroxysmal atrial fibrillation): Cont amiodarone. Eliquis has been continued during her hospitalization at [facility]. Cont coreg. Tele stable while hospitalized; remained in NSR her entire stay. (5) Depression: Cont SSRI (6) Dyslipidemia: Continue atorvastatin 80 mg nightly Consider zetia as LDL is not at goal and in light of severe CAD (7) Diabetes mellitus type 2 in obese: Last a1c 5.8% c/w pre-DM state rather than full-blown T2DM. She was taking metformin at home prior to admission. This has been held in light of contrast use, etc. (8) COPD (chronic obstructive pulmonary disease): No exacerbation during the hospital stay. Cough is likely due to pulmonary edema rather than COPD. Continue Breo Ellipta 1 puff once a day. Continue combivent prn. (9) Pneumonia: Was initiated on broad-spectrum IV antibiotics on 06/16/19 at [facility] for suspected right-sided multifocal pneumonia. It is uncertain if the CT findings at [place] represented pulmonary edema vs pulmonary edema w/ concomitant pneumonia. She was continued on IV antibiotics at [facility] as a precautionary measure. She received, in total, about 5 days of IV antibiotics between [facility] and [facility]. The antibiotics were discontinued on the AM of 06/20/19. At time of transfer to [facility] she has little in the way of symptoms/signs of pneumonia. She had no fever during her stay. (10) Hypertension: Controlled on current regimen of meds (11) CLL (chronic lymphocytic leukemia): Stable with acceptable CBCs while hospitalized (12) Chronic kidney disease, stage 3a: Cr stable at 1.1 to 1.4 while at [facility] I would like to thank CARRIE Flowers, and Dr Jon Suero at [facility] for accepting Mrs Diaz in transfer for ongoing care. Total Time Total Time Spent Total Time Spent (In Minutes): 60 Total Time Includes: Examination of the Patient, Discharge Planning, Medication Reconciliation and Communication With Other Providers Discharge Plan Discharge Items Patient Disposition: Transfer Acute Care Hospital Reason For Visit: ACUTE ON CHRONIC HEART FAILURE Discharge Diagnosis: 1. acute/chronic systolic CHF 2. severe, triple-vessel CAD - in need of consideration of CABG Goals: 1. relieve pulmonary congestion/shortness of breath 2. diagnose and treat coronary disease Activity: Per Instructions section Bathing: Keep incision dry Bathing Comment: right wrist Non-emergency contact: Primary Care Provider and Industrial Editor Call non-emergency contact if: you have any medication questions, your symptoms worsen, your pain is not controlled and you have a fever Follow-up/Referrals: Mary Jane Cruz, [Primary Care Provider] - Diet: Carb Consistent or DM2 and Heart Healthy Fluids: 1500ml (6 cups) Addtl Attending Provider Instructions: You were treated for congestive heart failure +/- question of pneumonia. You received diuretics for the congestive heart and antibiotics. Dr Edgardo Sanders performed your heart catheterization on 06/19/19 and this revealed severe, triple-vessel coronary artery disease. The best plan of action per Dr Sanders was to transfer to a larger hospital with CT surgery to be evaluated for potential open heart surgery ("CABG", or bypass). Dr Jon Suero and CARRIE Hunt at [facility] have graciously accepted you in transfer to the CT surgery service. New medications - aspirin 81mg daily (started because of the coronary artery disease). Follow-up -- will be determined after your stay at [facility] [place] Pending Studies at Discharge: No Stand-Alone Forms: My [facility] Skilled Items Patient informed of condition?: Yes DNR: No Discharge Level of Care: Other Communicable Disease: No Discharge Prognosis: Stable Lines: Peripheral IV Urinary Catheter: No Medications and DC Order Prescriptions: New aspirin [Ecotrin Low Strength] 81 mg Tablet,Delayed Release (Dr/Ec) 81 mg PO QAM Qty: 90 RF: 3 Continued Entresto 24-26 mg tablet 1 tab PO BID Qty: 60 RF: 0 atorvastatin [Lipitor] 80 mg Tablet 80 mg PO HS RF: 0 amiodarone 200 mg Tablet 200 mg PO QAM RF: 0 potassium chloride 10 mEq Tablet Extended Release 10 meq PO BID RF: 0 albuterol sulfate 90 mcg/actuation Hfa Aerosol Inhaler 1 puff INHALATION Q6H PRN (Reason: Shortness Of Breath) RF: 0 Breo Ellipta 100-25 mcg/dose Blister With Device 1 inh INHALATION DAILY RF: 0 furosemide 40 mg tablet 40 mg PO QAM Qty: 60 RF: 0 citalopram 20 mg Tablet 20 mg PO QAM RF: 0 lorazepam 0.5 mg Tablet 0.5 mg BUCCAL BID PRN (Reason: Anxiety) RF: 0 fluticasone propionate 50 mcg/actuation spray,suspension 1 spray intranasal QAM RF: 0 carvedilol 25 mg Tablet 25 mg PO BID Qty: 60 RF: 1 nitroglycerin [Nitrostat] 0.4 mg Tablet, Sublingual 0.4 mg sublingual UD PRN (Reason: Chest Pain) Qty: 25 RF: 0 Eliquis 5 mg Tablet 5 mg PO BID Qty: 60 RF: 2 Discontinued metformin 500 mg tablet extended release 24 hr 500 mg PO QAM RF: 0 Discharge Orders: Discharge Order (Routine); Ordered 06/20/19 Ordered By: José Edwards Admission Data Admit Date/Time: 06/18/19 15:24 Attending Provider: José Edwards Admit Provider: Christen Christian Primary Care Provider: Mary Jane Cruz Other Providers: Adelfo Driver
[2019-06-20] MEDS ORDERED: NYSTATIN SUSP 500,000 U/5 ML UDC PO SCH (13:00)
== END 2019-06-20 14:34 | disposition short-term general hospital (02) | DRG 286 ==
LOC: SUATTDRO 15:24 → 2N 15:24 → 2S 06-19 10:44

== ENCOUNTER 2023-12-13 09:53 | Observation (INO) ==
--- NOTE | 2023-12-13 11:18 | Emergency Department Note ---
Impression & Plan Acute pain of left lower extremity, 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 custodial 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 ED Provider Note Provider: Theodore Garrett MD DATE OF SERVICE: 12/13/2023 CHIEF COMPLAINT: Leg pain HISTORY OF PRESENT ILLNESS: Patient is a 78-year-old female history of CKD, hypertension, lumbar compression fractures, diabetes, CLL, CAD and CHF presenting here today via ambulance from home. Utilizes walker and wheelchair frequently at home and lives with daughter. Daughter present at bedside. Reports she has had long issues with arthritis in the shoulders, right knee, and left hip. Was able to get up and shower this morning and then made back to her bedroom. Was sitting on the bed putting on her pants when she felt something pull or pop in her left hip and had severe pain here. Was able to ambulate out to eat and complained of the severe pain. Utilizes Tylenol regularly with minimal effect for her chronic pain. Does report chronic ongoing issues in her right knee and right shoulder but no falls. No significant new numbness or tingling reported. States she has had injections in joints before without real improvement and was talking with her doctor about a pain management referral. Cannot have surgery to replace her right knee due to risk factors for surgery. Did have her morning meds according to daughter. Has had constipation issues with narcotics in the past but no allergic reactions. Denies significant abdominal pain at this time. Again denies any trauma or falls. PAST MEDICAL HISTORY: As noted above MEDICATIONS: Reviewed home medication list SOCIAL HISTORY: Lives at home with daughter generally uses wheeled walker PHYSICAL EXAM: GENERAL: alert and oriented in no acute distress Head: normocephalic and atraumatic EYES: No injection, discharge or icterus. NECK: Trachea midline. ENT: Mucous membranes pink and moist. LUNGS: Airway patent. No retractions. Breath sounds clear with good air entry bilaterally. HEART: Regular rate and rhythm. No chest wall tenderness ABDOMEN: Soft and non-tender, without guarding or rebound. SKIN: Acyanotic, warm, dry, without rashes EXTREMITIES: Without swelling, tenderness or deformity all of her chronic pain with movement of the right shoulder as well as some to the right knee. No significant swelling appreciated here with trace 1+ bilateral lower extremity edema. Patient with significant pain with flexion or extension of the left hip laterally in the left greater trochanteric area. NEUROLOGICAL: No focal deficits. No aphasia. No facial droop or slurred speech. Sensation to gross touch normal. PDMP was checked without noted issue. Patient's imaging reviewed. Differential includes Fracture, dislocation, neurovascular compromise, compartment syndrome, soft tissue injury, as well as other pathologies. IMPRESSION/MEDICAL DECISION MAKING: Patient with chronic joint musculoskeletal issues exacerbated today after a movement. Pain primarily in the left hip and lateral hip region. Denying significant abdominal or new significant right knee or shoulder pain. No trauma or falls reported. Anticoagulated doubt DVT. No significant pain noted in the left knee lower leg or foot. No significant numbness or weakness newly appreciated/reported. Given oxycodone here and discussed bowel regimen given her history of constipation with the use that she is exhausted options given her history of CKD and already use of Tylenol. Discussed precautions with her and her daughter regarding fall risk. Will obtain x-rays of the left hip and pelvic region to look for possible orthopedic injury such as occult fracture but seems less likely given the minimal mechanism. Does not appear significantly shortened and doubt dislocation. Again has had some chronic worsening with issues and has open referral to pain management being worked on by daughter. Patient's pain doing a bit better but patient's daughter as well as the patient have concerns about her to function at home and complete ADLs basically bathroom with her Lasix use and pain and in light of her long-term 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 usage. In shared decision-making with the patient she was to stay in the hospital for her safety and pain control. Hospitalist team was contacted. DIAGNOSIS: Left hip pain, long-term 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 DISPOSITION: Hospitalist will evaluate Patient was agreeable with this plan. Past Med/Surg History Medical History (Updated 12/13/23 @ 14:21 by Theodore Garrett M.D.) CKD (chronic kidney disease) stage 3, GFR 30-59 ml/min Seasonal allergies Cerebral artery occlusion History of CHF (congestive heart failure) Osteoarthritis of right knee GEL SHOT, MOST RECENT INJECTION FEBRUARY 2021 DM2 (diabetes mellitus, type 2) History of colon polyps Nausea and vomiting after administration of anesthetic agent Osteoarthritis Leukemia just monitoring On anticoagulant therapy Hearing deficit Depression Anxiety Spinal stenosis Stroke x3 ?----no neurologist, left arm weakness, uses cane to ambulate Hypertension Hyperlipidemia Atrial fibrillation DX 2018 ? DR KENNEDY - NO HX CARDIOVERSION Myocardial Infarction 2010 & 2019...STENT X 1 Asthma LAST USE LAST WEEK Surgical History Hx of cataract surgery B/L H/O heart artery stent HX [place] , STENT X1 2019 History of phacoemulsification of cataract of both eyes with intraocular lens implantation History of dilatation and curettage x3 History of total left knee replacement (TKR) History of right breast biopsy x3--benign History of laparoscopy History of bilateral breast reduction surgery History of colonoscopy Family History Mother Family history of diabetes mellitus Myocardial infarction Family/Other Family history of diabetes mellitus cousin Aunt Breast cancer Father Myocardial infarction Stroke Other No family history of adverse response to anesthesia Denies family history of Ovarian cancer Prostate cancer Colorectal cancer Uterine cancer Social History Smoking Status: Former smoker Tobacco Type: Cigarettes Age Started Using Tobacco: 53; Age Quit Using Tobacco: 62; Cigarettes Per Day: HX OCCASSIONAL CIGARETTE 15 YRS AGO; Smoking End Date: "Years ago"; Second Hand Exposure: No; Do You Dip or Chew Tobacco: No; Tobacco Cessation Education Requested by Patient: No Hx Alcohol Use: Yes Alcohol type: wine Alcohol Intake Frequency: 2-4 x/Month Hx Substance Use: No Preferred Language: Niuean Communication Ability: Effective Visual Impairment: No Limitations Hearing Ability: Use of Hearing Aid Review Nurse Required: No Beliefs That Will Affect Care: Anglican Anglican Beliefs: RESTORATIONISM marital status: / Current Living Situation: Other Current Living Situation Comment: Lives with daughter, Lita Prater. current occupational status: retired current occupation: worked for [employer] Other Information That Helps Us Care for You: No Feels Safe at Home: Yes Safety Concerns: Feels Safe At This Time Childhood Exposure to Second-Hand Smoke: Yes Diet: low salt Diet Comment: low sodium Dental Care, Regularly: Yes Physical Activity Frequency: Does not Exercise Seatbelt Use: always Sunscreen Use: No Assistive Devices: Walker Allergies Allergies Allergy/AdvReac Type Severity Reaction Status Date / Time bee venom protein (honey bee) Allergy Severe Anaphylaxis Verified 11/29/23 13:01 Penicillins Allergy Severe Rash, Verified 11/29/23 13:01 anaphylaxis Sulfa (Sulfonamide Allergy Severe Rash, Verified 11/29/23 13:01 Antibiotics) anaphylaxis Home Meds Home Medications Medication Instructions Recorded Confirmed guaifenesin 600 mg tablet, 600 mg PO UD PRN Congestion 07/29/21 12/13/23 extended release 12 hr (Mucinex) abaloparatide (Tymlos) 80 mcg subcut QAM 06/19/23 12/13/23 Previous Rx's Medication Instructions Recorded albuterol sulfate 90 mcg/actuation 1 puff inhalation Q6H PRN 08/25/23 aerosol inhaler Shortness Of Breath #8.5 grams amiodarone 200 mg tablet 200 mg PO QAM #90 tabs 08/25/23 apixaban 5 mg tablet (Eliquis) 5 mg PO BID #180 tabs 08/25/23 atorvastatin 80 mg tablet (Lipitor) 80 mg PO HS #90 tabs 08/25/23 carvedilol 6.25 mg tablet 6.25 mg PO BID #180 tabs 08/25/23 cholecalciferol (vitamin D3) 50 2,000 unit PO QAM #90 tabs 08/25/23 mcg (2,000 unit) tablet clopidogrel 75 mg tablet 75 mg PO DAILY #90 tabs 08/25/23 folic acid 1 mg tablet 1 mg PO DAILY #90 tabs 08/25/23 lancets 31 gauge (Comfort Touch #100 ea 08/25/23 Ultra Thin Lancets) nitroglycerin 0.4 mg sublingual 0.4 mg sublingual UD PRN Chest 08/25/23 tablet (Nitrostat) Pain #25 tabs sacubitril 97 mg-valsartan 103 mg 1 tab PO BID #120 tabs 08/25/23 tablet (Entresto) sertraline 100 mg tablet (Zoloft) 100 mg PO DAILY #90 tabs 08/25/23 spironolactone 25 mg tablet 25 mg PO DAILY #90 tabs 08/25/23 blood sugar diagnostic (OneTouch #100 ea 09/01/23 Verio test strips) ferrous sulfate 325 mg (65 mg 325 mg PO Q OTHER DAY #45 tabs 10/06/23 iron) tablet furosemide 20 mg tablet 20 mg PO QAM #90 tabs 11/10/23 mecobalamin (vitamin B12) 1,000 1,000 mcg PO DAILY #90 tabs 11/12/23 mcg chewable tablet pregabalin 75 mg capsule 75 mg PO Q12H #60 caps 11/12/23 fexofenadine 180 mg tablet 180 mg PO Q24H #90 tabs 11/24/23 fluticasone propionate 50 1 spray intranasal QAM #48 mL 12/02/23 mcg/actuation nasal spray,suspension Results & Data (ED) Vital Signs Vital Signs - 24 hr 12/13/23 09:41 12/13/23 10:08 Temperature 36.5 C Temperature Source Oral Pulse Rate 67 70 Pulse Rhythm Regular Pulse Strength Normal Respiratory Rate 20 Respiratory Effort / Characteristics Non-Labored Spontaneous Respiratory Depth Normal Respiratory Pattern Regular Blood Pressure 165/83 H Blood Pressure Mean 110 Blood Pressure Position Sitting Pulse Oximetry 99 Oxygen Delivery Method Room Air Sepsis Recent Fever Within 48 Hours No Sepsis New/Unexplained Change in Mental Status No Sepsis Action Taken by Nursing No Action Required Laboratory Data 12/13/23 Unknown 12/13/23 Unknown Administered Medications Acetaminophen (Acetaminophen 325 Mg Tab) 650 mg PO Q6H [facility] Stop: 01/12/24 15:59 Last Admin: 12/13/23 15:18 Dose: 650 mg Documented By: NACHO Hydromorphone HCl (Hydromorphone Inj 0.5 Mg/0.5 Ml Syr) 0.5 mg IV Q6H PRN PRN Reason: Pain(6+) Stop: 12/27/23 18:23 Last Admin: 12/13/23 18:31 Dose: 0.5 mg Documented By: MARCIN Insulin Aspart (Insulin Aspart Per Unit Charge) 0 units SC ACHS [facility] Stop: 01/12/24 16:29 Last Admin: 12/13/23 17:13 Dose: Not Given Documented By: MARCIN Discontinued Medications Cyclobenzaprine HCl (Cyclobenzaprine Hcl 5 Mg Tab) 5 mg PO NOW STA Stop: 12/13/23 13:52 Last Admin: 12/13/23 14:50 Dose: 5 mg Documented By: LUIS MANUEL Lidocaine (Lidocaine 5% 1 Patch) 1 patch TD NOW STA Stop: 12/13/23 13:54 Last Admin: 12/13/23 15:18 Dose: 1 patch Documented By: NACHO Oxycodone/Acetaminophen (Oxycodone/Acetaminophen 5mg/325mg Tab) 1 tab PO NOW STA Stop: 12/13/23 11:01 Last Admin: 12/13/23 11:37 Dose: 1 tab Documented By: LUIS MANUEL Imaging Data Radiologist's Impression: Hip/Pelvis X-Ray 12/13/23 11:00 XR hip LT 2V w pelvis CLINICAL HISTORY: pain TECHNIQUE: 2 views of the left hip and single frontal view of the pelvis were obtained. Comparison: None available at the time of this dictation. FINDINGS: There is no evidence of an acute fracture. Degenerative changes are seen in the hip joint. Vascular calcifications are noted. IMPRESSION: Degenerative changes without evidence of acute abnormality. ACT 112: Negative or not required by law. Electronically signed by: Emre Dennis M.D. 12/13/2023 12:17 PM Discharge Plan Visit Data Chief Complaint: Leg Injury/Pain ED Provider: Theodore Garrett Discharge Problem: Acute pain of left lower extremity, 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 custodial 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 Patient Disposition: Admitted As Inpatient Discharge Instructions Interventions: ED Discharge Assessment Last Done: 12/13/23 16:50
[2023-12-13] MEDS: oxyCODONE/ACETAMINOPHEN 5mg/325mg TAB PO STA (11:37)
--- NOTE | 2023-12-13 12:18 | XRay Report ---
XR hip LT 2V w pelvis CLINICAL HISTORY: pain TECHNIQUE: 2 views of the left hip and single frontal view of the pelvis were obtained. Comparison: None available at the time of this dictation. FINDINGS: There is no evidence of an acute fracture. Degenerative changes are seen in the hip joint. Vascular c alcifications are noted. IMPRESSION: Degenerative changes without evidence of acute abnormality. ACT 112: Negative or not required by law. Electronically signed by: Emre Dennis M.D. 12/13/2023 12:17 PM
--- NOTE | 2023-12-13 13:36 | History & Physical Report ---
Date of Service December 13, 2023 Assessment & Plan (1) Radicular low back pain: Plan: -Admit to med/surge -Currently stable with pain under control at rest -At this time it appears that the patient's low back pain with radiation down the lateral left LE is most likely due to possible lumbar disc herniation causing nerve root compression and muscle spasms -Symptoms first occurred while patient was seated and bending forward to put her pants on yesterday -Denies red flag symptoms or paresthesias, symmetrical strength and reflexes in the BL LE's -Xrap of the pelvis was negative for trauma -S/P one dose of 5 mg Oxycodone/325 mg Tylenol without improvement in symptoms -We will obtain stat CT of the lumbar spine wo con first -If needed will obtain MRI of the lumbar spine -Will give 5 mg PO Flexeril now to see if this improves her symptoms more than oxy/tylenol -Start lidocaine patch and heat -Continue home Lyrica -Will follow CBC and BMP ordered on admission -PT/OT consults -Fall/aspiration precautions -Home Eliquis for DVT PPX -HH/DMII diet with 2gm sodium and 1800 mL fluid restriction -AM CBC, BMP, mag, PT/INR (2) Acute pain of left lower extremity: Plan: -See radicular low back pain (3) Hypertension: Plan: -Stable -Continue Carvedilol, (4) Depression: Plan: -Continue sertraline (5) Diabetes mellitus, type 2: Plan: -Has been diet controlled -Will start BSG checks ACHS with goal of 110-160 -Start CF 50 ACHS for now -Adjust regimen as needed (6) PAF (paroxysmal atrial fibrillation): Plan: -Continue Elqiuis -Continue amiodarone, Carvedilol, (7) Ischemic cardiomyopathy: Plan: -Currently euvolemic on exam -Continue Entresto, lasix, and spironolactone (8) CLL (chronic lymphocytic leukemia): Plan: -Will follow CBC ordered on admission Plan The patient was discussed with Dr. Santillan at the time of the admission History of Present Illness Chief Complaint: Low back pain with radiation into LLE Primary Care Provider: Arlen Frederick MD Jere Diaz is a 78yo female with PMH of chronic low back pain, HFpEF, CAD s/p anteroapical MS in 2010, HTN, paroxysmal a fib, Diet controlled T2DM, CKD, CLL, anxiety, and severe OA of the left hip and right knee, who presented to the [facility] ED on 12/13/23 with complaints of low back pain with radiation into the LLE. She remained stable in the ED. Labs were not obtained prior to the time of admission. Xray of the pelvis was negative for acute findings. Her pain was mildly improved with a dose of Oxycodone/Acetaminophen in the ED. We were asked to admit to the patient for ongoing pain control and possible placement. At the time of the exam the patient was lying in bed in no acute distress with her Daughter/POA bedside, history was obtained from both. Patient has been living with her Daughter due to chronic OA of the BL LE and low back pain which causes baseline ambulatory dysfunction. She had been in her normal state of health until yesterday afternoon. She was sitting on her bed after getting a shower. She bent forward to put her pants on and had a sudden onset of severe low back pain with radiation down the lateral LLE. The patient is usually tolerable at rest but significant exacerbated with any movement. States it feels like sharp/stabbing pain with associated muscle cramps; 10/10 at it's most severe. Is currently unable to safely ambulate due to her pain. Denies saddle anesthesia, loss of bowel or bladder function, or recent falls. Denies new paresthesias in the BL LE since the incident yesterday. Denies recent fever, chills, chest pain, SOB, cough, nausea, vomiting, abd pain, dysuria, hematuria, melena, and LE swelling. She is a full code and her Daughter is her POA. Please refer to Dr. Santillan's attestation for any changes to the treatment plan Allergies Allergy/AdvReac Type Severity Reaction Status Date / Time bee venom protein (honey bee) Allergy Severe Anaphylaxis Verified 11/29/23 13:01 Penicillins Allergy Severe Rash, Verified 11/29/23 13:01 anaphylaxis Sulfa (Sulfonamide Allergy Severe Rash, Verified 11/29/23 13:01 Antibiotics) anaphylaxis Home Medications Medication Instructions Recorded Confirmed Type guaifenesin 600 mg tablet, 600 mg PO UD PRN Congestion 07/29/21 12/13/23 History extended release 12 hr (Mucinex) abaloparatide (Tymlos) 80 mcg subcut QAM 06/19/23 12/13/23 History albuterol sulfate 90 mcg/actuation 1 puff inhalation Q6H PRN 08/25/23 12/13/23 Rx aerosol inhaler Shortness Of Breath #8.5 grams amiodarone 200 mg tablet 200 mg PO QAM #90 tabs 08/25/23 12/13/23 Rx apixaban 5 mg tablet (Eliquis) 5 mg PO BID #180 tabs 08/25/23 12/13/23 Rx atorvastatin 80 mg tablet (Lipitor) 80 mg PO HS #90 tabs 08/25/23 12/13/23 Rx carvedilol 6.25 mg tablet 6.25 mg PO BID #180 tabs 08/25/23 12/13/23 Rx cholecalciferol (vitamin D3) 50 2,000 unit PO QAM #90 tabs 08/25/23 12/13/23 Rx mcg (2,000 unit) tablet clopidogrel 75 mg tablet 75 mg PO DAILY #90 tabs 08/25/23 12/13/23 Rx folic acid 1 mg tablet 1 mg PO DAILY #90 tabs 08/25/23 12/13/23 Rx lancets 31 gauge (Comfort Touch #100 ea 08/25/23 11/29/23 Rx Ultra Thin Lancets) nitroglycerin 0.4 mg sublingual 0.4 mg sublingual UD PRN Chest 08/25/23 12/13/23 Rx tablet (Nitrostat) Pain #25 tabs sacubitril 97 mg-valsartan 103 mg 1 tab PO BID #120 tabs 08/25/23 12/13/23 Rx tablet (Entresto) sertraline 100 mg tablet (Zoloft) 100 mg PO DAILY #90 tabs 08/25/23 12/13/23 Rx spironolactone 25 mg tablet 25 mg PO DAILY #90 tabs 08/25/23 12/13/23 Rx blood sugar diagnostic (OneTouch #100 ea 09/01/23 11/29/23 Rx Verio test strips) ferrous sulfate 325 mg (65 mg 325 mg PO Q OTHER DAY #45 tabs 10/06/23 12/13/23 Rx iron) tablet furosemide 20 mg tablet 20 mg PO QAM #90 tabs 11/10/23 12/13/23 Rx mecobalamin (vitamin B12) 1,000 1,000 mcg PO DAILY #90 tabs 11/12/23 12/13/23 Rx mcg chewable tablet pregabalin 75 mg capsule 75 mg PO Q12H #60 caps 11/12/23 12/13/23 Rx fexofenadine 180 mg tablet 180 mg PO Q24H #90 tabs 11/24/23 12/13/23 Rx fluticasone propionate 50 1 spray intranasal QAM #48 mL 12/02/23 12/13/23 Rx mcg/actuation nasal spray,suspension Past Med/Surg History Medical History (Updated 12/13/23 @ 14:21 by Theodore Garrett M.D.) CKD (chronic kidney disease) stage 3, GFR 30-59 ml/min Seasonal allergies Cerebral artery occlusion History of CHF (congestive heart failure) Osteoarthritis of right knee GEL SHOT, MOST RECENT INJECTION FEBRUARY 2021 DM2 (diabetes mellitus, type 2) History of colon polyps Nausea and vomiting after administration of anesthetic agent Osteoarthritis Leukemia just monitoring On anticoagulant therapy Hearing deficit Depression Anxiety Spinal stenosis Stroke x3 ?--2010/2011--no neurologist, left arm weakness, uses cane to ambulate Hypertension Hyperlipidemia Atrial fibrillation DX 2018 ? DR KENNEDY - NO HX CARDIOVERSION Myocardial Infarction 2010 & 2019...STENT X 1 Asthma LAST USE LAST WEEK Surgical History Hx of cataract surgery B/L H/O heart artery stent HX MS , STENT X1 2019 History of phacoemulsification of cataract of both eyes with intraocular lens implantation History of dilatation and curettage x3 History of total left knee replacement (TKR) History of right breast biopsy x3--benign History of laparoscopy History of bilateral breast reduction surgery History of colonoscopy Family History Mother Family history of diabetes mellitus Myocardial infarction Family/Other Family history of diabetes mellitus cousin Aunt Breast cancer Father Myocardial infarction Stroke Other No family history of adverse response to anesthesia Denies family history of Ovarian cancer Prostate cancer Colorectal cancer Uterine cancer Social History Smoking Status: Former smoker Tobacco Type: Cigarettes Age Started Using Tobacco: 53; Age Quit Using Tobacco: 62; Cigarettes Per Day: HX OCCASSIONAL CIGARETTE 15 YRS AGO; Smoking End Date: "Years ago"; Second Hand Exposure: No; Do You Dip or Chew Tobacco: No; Tobacco Cessation Education Requested by Patient: No Hx Alcohol Use: Yes Alcohol type: wine Alcohol Intake Frequency: 2-4 x/Month Hx Substance Use: No Preferred Language: Iraqi Communication Ability: Effective Visual Impairment: No Limitations Hearing Ability: Use of Hearing Aid Trailer Chief Required: No Beliefs That Will Affect Care: Mormonism Mormonism Beliefs: [employer] marital status: / Current Living Situation: Other Current Living Situation Comment: Lives with daughter, Lita Prater. current occupational status: retired current occupation: worked for [employer] Other Information That Helps Us Care for You: No Feels Safe at Home: Yes Safety Concerns: Feels Safe At This Time Childhood Exposure to Second-Hand Smoke: Yes Diet: low salt Diet Comment: low sodium Dental Care, Regularly: Yes Physical Activity Frequency: Does not Exercise Seatbelt Use: always Sunscreen Use: No Assistive Devices: Walker Physical Exam Physical Exam: Physical Exam: General: In no acute distress, stated age, well-nourished, good hygiene HEENT: Normocephalic, atraumatic, no scleral icterus, pupils around round, symmetrical, and reactive to light, moist mucus membranes, trachea midline, no thyromegaly Chest/Pulm: No respiratory distress, symmetrical chest expansion, clear breath sounds throughout Cardiac: RRR, no murmurs noted Abdomen: Negative for ascites and bruising, normoactive bowel sounds, soft, non-tender to palpation throughout Musculoskeletal: Patient without signs of acute trauma on inspection, patient with muscle spasms and tenderness to palpation of the lateral left thigh and lower lumbar spine, no crepitus or step off's noted, no acute trauma on palpation or active ROM of the RLE, patient with increased pain in the lower back and LLE on straight leg raise of the LLE Extremities: Radial, dorsalis pedis, and posterior tibial pulses are intact and symmetrical, no edema noted in the BL LE's Skin: Warm, dry, no rashes , lesions, or scars noted Neuro: Alert and oriented to person, place, month, year, and president, no focal defects, intact sensation and symmetrical strength in the BL LE's, 2+ patellar and Achilles reflex in the BL LE's, no tremors noted Psych: No acute distress at rest, calm and cooperative during the exam Results & Data Results & Data Vital Signs (Past 12 Hours) Vital Signs Temp Pulse Resp BP Pulse Ox O2 Del Method 12/13/23 10:08 70 12/13/23 09:41 36.5 C 67 20 165/83 H 99 Room Air Diagnostic Findings Hip/Pelvis X-Ray 12/13/23 11:00 XR hip LT 2V w pelvis CLINICAL HISTORY: pain TECHNIQUE: 2 views of the left hip and single frontal view of the pelvis were obtained. Comparison: None available at the time of this dictation. FINDINGS: There is no evidence of an acute fracture. Degenerative changes are seen in the hip joint. Vascular calcifications are noted. IMPRESSION: Degenerative changes without evidence of acute abnormality. ACT 112: Negative or not required by law. Electronically signed by: Emre Dennis M.D. 12/13/2023 12:17 PM ECG Additional Comments: Will obtain at the time of admission Code Status & VTE Plan Code Status Full code VTE Prophylaxis Plan VTE Prophylaxis will be ordered: Yes Supervising Physician Co-Signing Physician Notes Patient seen and examined, chart reviewed, case discussed with Osvaldo Conroy PA-C and I agree with the assessment and plan as above except as otherwise noted Labs and images reviewed Seen briefly in the ER prior to transfer. Significant pain of the lower back after bending 1 day prior, radiates into the lower extremity 10/10 in intensity. No focal weakness or sensory loss. No signs of cauda equina. CT of the lumbar spine degenerative change without fracture. Agree with multimodal symptom control as above. Due to severity of pain with radicular symptoms and inability to ambulate due to symptoms, lumbar MRI has been ordered to R/O critical compression. Agree with assessment plan as above PG Care Time/CCT Total # of Minutes Spent Total Time Spent with Patient: Total time spent is greater than 50% in coordination of care (as documented) at patient's floor/unit and/or counseling patient: Coding [place] [address] INT INP/OBS CARE 3/75MIN Patient Type Established Medical Decision Making High Complexity Diagnoses Radicular low back pain M54.10 Acute pain of left lower extremity M79.605 Essential hypertension I10 Hypertension type: essential hypertension Other depression F32.89 Depression Type: other depression Diabetes mellitus, type 2 E11.9 PAF (paroxysmal atrial fibrillation) I48.0 Ischemic cardiomyopathy I25.5 CLL (chronic lymphocytic leukemia) C91.90 (3) Hypertension Hypertension type: essential hypertension Qualified Code(s): I10 - Essential (primary) hypertension (4) Depression Depression Type: other depression Qualified Code(s): F32.89 - Other specified depressive episodes
[2023-12-13] MEDS ORDERED: GLUCOSE 40% GEL 15 GM TUBE PO PRN (13:37)
[2023-12-13] MEDS ORDERED: GLUCAGON FOR INJ 1 MG VIAL SQ PRN (13:37)
[2023-12-13] MEDS ORDERED: DEXTROSE 50% 50 ML SYRINGE IV PRN (13:37)
[2023-12-13] MEDS ORDERED: CARBOHYDRATES FOR HYPOGLYCEMIA PO PRN (13:37)
[2023-12-13] MEDS ORDERED: GLUCOSE 10 TAB/TUBE PO PRN (13:37)
[2023-12-13] MEDS: CYCLOBENZAPRINE HCL 5 MG TAB PO STA (14:50)
[2023-12-13] MEDS: ACETAMINOPHEN 325 MG TAB PO SCH (15:18)
[2023-12-13] MEDS: LIDOCAINE 5% 1 PATCH TD STA (15:18)
[2023-12-13 15:19] LABS: Hematocrit (blood only) 35.7 % (37.0-47.0); Hemoglobin 11.6 g/dl (12.0-16.0); Mean Corpuscular Hemoglobin 32.3 pg (25.0-34.0); Mean Corpuscular Hgb Conc 32.5 g/dL (32.0-36.0); Mean Corpuscular Volume 99.4 fL (80.0-100.0); Mean Platelet Volume 10.1 fL (9.4-12.4); Platelet Count 228 K/uL (130-400); RDW Coefficient of Variation 13.5 % (11.5-14.5); RDW Standard Deviation 49.6 fL (36.4-46.3); Red Blood Count 3.59 M/uL (4.20-5.40); White Blood Count 25.23 K/ul (4.8-10.8)
[2023-12-13 15:39] LABS: BUN Creatinine Ratio 26.5 (10-20); Calcium 9.4 mg/dl (8.6-10.3); Creatinine Clr Calc Pharmacy 33.3 ml/min; Est GFR (African American) 36.3 ml/min; Est GFR (Non-African American) 31.3 ml/min; Potassium 4.3 mmol/L (3.5-5.1)
[2023-12-13 16:00] LABS: Appearance Urine Clear (Clear); Bilirubin Urine Negative (Negative); Blood Urine Negative (Negative); Color Urine Yellow; Glucose Urine UA Negative (Negative); Ketones Urine Negative (Negative); Leukocyte Esterase Urine Negative (Negative); Nitrite Urine Negative (Negative); Protein Urine Negative (Negative); Specific Gravity Urine 1.023 (1.000-1.030); Urobilinogen Urine Negative (Negative); pH Urine 6.5 (4.5-7.5)
[2023-12-13 16:23] LABS: Basophils # (auto) 0.08 K/uL (0.00-0.20); Basophils % (auto) 0.3 %; Eosinophils % (auto) 1.2 %; Immature Granulocytes # (auto) 0.09 K/uL (0.01-0.20); Immature Granulocytes % (auto) 0.4 %; Monocytes # (auto) 0.91 K/uL (0.11-0.59); Monocytes % (auto) 3.6 %; Neutrophils # (auto) 8.45 K/uL (1.40-6.50); Neutrophils % (auto) 33.5 %; Smudge Cells Present
[2023-12-13] MEDS ORDERED: ALBUTEROL HFA 8 GM INHALER INH PRN (16:33)
--- NOTE | 2023-12-13 16:47 | CT Scan Report ---
CT lumbar spine wo con CLINICAL HISTORY: severe low back pain w/radiation to LLE TECHNIQUE: Multidetector row helical CT of the lumbar spine was performed without administration of i ntravenous contrast. Coronal and sagittal reformations were obtained. Automated dose lowering techniq ues and/or adjustment according to patient size were utilized for this exam. CT DOSE: 1407.08 mGy.cm Comparison: Comparison is made to lumbar spine radiographs 06/18/2022 FINDINGS: For counting purposes, the last complete intervertebral disc space is considered L5-S1. No acute fractures are identified. Degenerative changes are noted in the visualized spine. Stable los s of height at L3. Vertebral body alignment is within normal limits. Aortic calcifications are seen. IMPRESSION: Degenerative changes without evidence of acute bony injury. ACT 112: Negative or not required by law. Electronically signed by: Emre Dennis M.D. 12/13/2023 4:46 PM
[2023-12-13] MEDS: INSULIN ASPART PER UNIT CHARGE SC SCH (17:13)
[2023-12-13] MEDS: HYDROmorphone INJ 0.5 MG/0.5 ML SYR IV PRN (18:31)
[2023-12-13] MEDS: ATORVASTATIN 40 MG TAB PO SCH (21:40)
[2023-12-13] MEDS: APIXABAN 5 MG TABLET PO SCH (21:40)
[2023-12-13] MEDS: carvediloL 6.25 MG TAB PO SCH (21:41)
[2023-12-13] MEDS: CYCLOBENZAPRINE HCL 5 MG TAB PO SCH (21:43)
[2023-12-13] MEDS: DOCUSATE SODIUM SYRUP 100 MG/10 ML UDC PO SCH (21:44)
[2023-12-13] MEDS: VALSARTAN/SACUBITRIL 103/97MG TAB PO SCH (21:44)
[2023-12-13] MEDS: PREGABALIN 75 MG CAP PO SCH (21:47)
--- NOTE | 2023-12-14 00:33 | Magnetic Resonance Report ---
Exam(s): MRI L SPINE Without Contrast EXAM: MR Lumbar Spine Without Intravenous Contrast CLINICAL HISTORY: Reason for exam: radicular low back pain. TECHNIQUE: Magnetic resonance images of the lumbar spine without intravenous contrast in multiple planes. COMPARISON: CT 12/13/2023 FINDINGS: No acute fracture. Chronic superior endplate compression deformity at L2. The conus terminates at L1-L2. There is partial ankylosis at L5-S1. No epidural collection. No discitis osteomyelitis. Multilevel disc desiccation with endplate degenerative related marrow signal abnormalities. Paraspinous soft tissues are unremarkable. T12-L1: Diffuse disc bulge. Mild canal stenosis. Mild to moderate bilateral foraminal stenosis. L1-L2: Trace diffuse disc bulge and facet arthropathy. Mild canal stenosis. Moderate right and mild left foraminal stenosis. L2-L3: Diffuse disc bulge. Facet arthropathy. Moderate canal stenosis. Severe right and mild to moderate left foraminal stenosis. L3-L4: Disc osteophyte with facet arthropathy. Mild canal stenosis. Moderate right and moderate left foraminal stenosis. L4-L5: Trace anterolisthesis with disc osteophyte and facet arthropathy. Mild canal stenosis. Mild right and severe left foraminal stenosis. L5-S1: No canal stenosis. Facet arthropathy. Mild right and mild left foraminal stenosis. IMPRESSION: No acute abnormality. Degenerative spondylosis as described. Electronically signed by: Reynaldo Ferro MD 12/14/23 00:32 AM
--- NOTE | 2023-12-14 07:20 | XRay Report ---
XR chest 1V portable CLINICAL HISTORY: elevated WBC TECHNIQUE: Single frontal radiograph of the chest was obtained. Comparison: Comparison is made to chest radiograph 06/21/2023 FINDINGS: No lines and tubes are seen. Cardiomegaly is noted. The aortic arch is calcified. The lungs are clear . No evidence of pleural effusion or pneumothorax. IMPRESSION: No acute chest disease. Cardiomegaly is noted. ACT 112: Negative or not required by law. Electronically signed by: Emre Dennis M.D. 12/14/2023 7:19 AM
[2023-12-14 07:43] LABS: Hematocrit (blood only) 33.5 % (37.0-47.0); Hemoglobin 10.7 g/dl (12.0-16.0); Mean Corpuscular Hemoglobin 32.4 pg (25.0-34.0); Mean Corpuscular Hgb Conc 31.9 g/dL (32.0-36.0); Mean Corpuscular Volume 101.5 fL (80.0-100.0); Mean Platelet Volume 10.1 fL (9.4-12.4); Platelet Count 197 K/uL (130-400); RDW Coefficient of Variation 13.7 % (11.5-14.5); RDW Standard Deviation 50.9 fL (36.4-46.3); White Blood Count 24.13 K/ul (4.8-10.8)
[2023-12-14 07:59] LABS: INR 1.1 (0.9-1.1); Prothrombin Time 11.9 Seconds (9.0-12.0)
[2023-12-14 08:29] LABS: BUN Creatinine Ratio 24.8 (10-20); Creatinine Clr Calc Pharmacy 32.1 ml/min; Est GFR (African American) 35.7 ml/min; Est GFR (Non-African American) 30.8 ml/min; Potassium 4.6 mmol/L (3.5-5.1)
[2023-12-14] MEDS ORDERED: methylPREDNISolone 10 mg/mL (For Ped Dose < 7mg) IV SCH (08:30)
[2023-12-14] MEDS: AMIODARONE 200 MG TAB PO SCH (09:46)
[2023-12-14] MEDS: CLOPIDOGREL BISULFATE 75 MG TAB PO SCH (09:48)
[2023-12-14] MEDS: FUROSEMIDE 20 MG TAB PO SCH (09:49)
[2023-12-14] MEDS: FOLIC ACID 1 MG TAB PO SCH (09:49)
[2023-12-14] MEDS: FERROUS SULFATE 325 MG TAB PO SCH (09:49)
[2023-12-14] MEDS: SPIRONOLACTONE 25 MG TAB PO SCH (09:49)
[2023-12-14] MEDS: SERTRALINE HCL 100 MG TABLET PO SCH (09:49)
[2023-12-14] MEDS: methylPREDNISolone 40 MG in SYRINGE 0 ML IV SCH (10:35)
--- NOTE | 2023-12-14 13:43 | Hospitalist Progress Note ---
Date of Service December 14, 2023 Assessment & Plan (1) Radicular low back pain: Plan: Parenteral steroid therapy. Lyrica has been discontinued due to side effects. Supportive care. Multilevel foraminal stenosis noted on lumbar CT scan and MRI (2) Hypertension: Plan: Stable. Continue Carvedilol, (3) Depression: Plan: Stable. Continue sertraline (4) Diabetes mellitus, type 2: Plan: ADA diet. Sliding scale coverage. Parenteral steroid therapy will likely cause hyperglycemia. (5) PAF (paroxysmal atrial fibrillation): Plan: Stable. Continue Elqiuis, amiodarone, Carvedilol, (6) Ischemic cardiomyopathy: Plan: Stable. Continue current medical management (7) CLL (chronic lymphocytic leukemia): Plan: Leukocytosis noted as expected. Serial labs Plan Hopeful discharge to home soon on a prednisone tapering dose Admission and Anticipated Discharge Date Admission Date: December 13, 2023 Subjective Somewhat lethargic probably from Lyrica given on admission which she does not take at home. This medication has been discontinued. She is now on parenteral steroid therapy. This probably will make her glucose jump up at we can deal with that with insulin as needed. I informed her daughter, Lita Prater, by phone. Will obtain OT and PT assessments when appropriate. Review of Systems 2 Review of Systems: Constitutional-no fever or chills. Lethargy developed after Lyrica dosage ENT-no blurred vision, no double vision, no epistaxis, no sore throat Respiratory-no cough, no wheezing, no shortness of breath Cardiac-no palpitations, no chest pain, no syncope GI-no nausea, vomiting, diarrhea, melena, hematochezia -no urinary retention, no urinary incontinence, no dysuria, no hematuria Musculoskeletal-lumbar discomfort radiating to the left leg, no muscle tenderness Skin-no bruising, no rashes, no pruritus Neuro-no isolated weakness, no paresthesia Psych-no depression, no anxiety Physical Exam 2 Physical Exam: General-somewhat lethargic and mildly dysarthric from medication side effect. No fever, no chills HEENT-head atraumatic and normocephalic, pupils equal and reactive to light, extraocular muscles intact Neck-no lymphadenopathy or thyromegaly, trachea midline Chest-clear to auscultation. No rales, wheezing or rhonchi Cardiac-regular rate and rhythm, normal S1 and S2 Abdomen-normal bowel sounds, nontender, no hepatosplenomegaly Extremities-no cyanosis, clubbing, or edema Neuro-cranial nerves II through XII intact, motor and sensory function within normal limits, strength symmetrical, no focal deficits Psych-normal affect, normal mood Results & Data Results & Data Vital Signs (Past 12 Hours) Vital Signs Temp Pulse Resp BP Pulse Ox O2 Del Method 12/14/23 07:15 36.5 C 59 L 16 117/66 93 Room Air Laboratory Results 12/14/23 06:35 12/14/23 06:35 PG Care Time/CCT Total # of Minutes Spent Total Time Spent with Patient: Total time spent is greater than 50% in coordination of care (as documented) at patient's floor/unit and/or counseling patient: Coding Level of Care Code 55634 SUB INP/OBS CARE 3/50MIN Diagnoses Radicular low back pain M54.10 Essential hypertension I10 Hypertension type: essential hypertension Other depression F32.89 Depression Type: other depression Diabetes mellitus, type 2 E11.9 PAF (paroxysmal atrial fibrillation) I48.0 Ischemic cardiomyopathy I25.5 CLL (chronic lymphocytic leukemia) C91.90 (2) Hypertension Hypertension type: essential hypertension Qualified Code(s): I10 - Essential (primary) hypertension (3) Depression Depression Type: other depression Qualified Code(s): F32.89 - Other specified depressive episodes
[2023-12-14] MEDS: TYMLOS SC SCH (15:24)
[2023-12-14] MEDS: bisacodyL 5 MG TABEC PO ONE (16:16)
[2023-12-14] MEDS: CALCIUM CARBONATE 500 MG CHEWABLE TAB PO PRN (16:16)
[2023-12-15 06:41] LABS: INR 1.1 (0.9-1.1); Prothrombin Time 11.7 Seconds (9.0-12.0)
[2023-12-15 06:50] LABS: Hematocrit (blood only) 34.5 % (37.0-47.0); Hemoglobin 11.5 g/dl (12.0-16.0); Mean Corpuscular Hemoglobin 32.8 pg (25.0-34.0); Mean Corpuscular Hgb Conc 33.3 g/dL (32.0-36.0); Mean Corpuscular Volume 98.3 fL (80.0-100.0); Mean Platelet Volume 10.1 fL (9.4-12.4); Platelet Count 254 K/uL (130-400); RDW Coefficient of Variation 13.5 % (11.5-14.5); Red Blood Count 3.51 M/uL (4.20-5.40); White Blood Count 44.11 K/ul (4.8-10.8)
[2023-12-15 07:15] LABS: BUN Creatinine Ratio 24.9 (10-20); Calcium 9.5 mg/dl (8.6-10.3); Creatinine Clr Calc Pharmacy 24.6 ml/min; Est GFR (African American) 25.9 ml/min; Est GFR (Non-African American) 22.3 ml/min; Potassium 4.8 mmol/L (3.5-5.1)
--- NOTE | 2023-12-15 12:16 | Hospitalist Progress Note ---
Date of Service December 15, 2023 Assessment & Plan (1) Radicular low back pain: Plan: Parenteral steroid therapy has helped considerably. She states her back pain is at least 50% better. She will be switched to a short course of oral prednisone taper at discharge. Lyrica has been discontinued due to side effects. Supportive care. Multilevel foraminal stenosis noted on lumbar CT scan and MRI (2) Hypertension: Plan: Stable. Continue Carvedilol, Entresto (3) Depression: Plan: Stable. Continue sertraline (4) Diabetes mellitus, type 2: Plan: ADA diet. Sliding scale coverage. Parenteral steroid therapy has caused mild hyperglycemia. Will follow. (5) PAF (paroxysmal atrial fibrillation): Plan: Stable. Continue Elqiuis, amiodarone, Carvedilol (6) Ischemic cardiomyopathy: Plan: Stable. Continue current medical management (7) CLL (chronic lymphocytic leukemia): Plan: Leukocytosis noted as expected. White blood cell count has risen with steroid therapy as expected. Serial labs Plan Hopeful discharge to home tomorrow, December 15, on a prednisone tapering dose Admission and Anticipated Discharge Date Admission Date: December 13, 2023 Subjective Much improved today, December 14. Mental status has improved to baseline once the Lyrica was discontinued. She states her back is at least 50% better with the parenteral steroid therapy. Glucose has risen to 197 with parenteral steroids as expected. She will be switched to a short course of prednisone taper at discharge. Her daughter, Lita cárdenas has been updated and understands she probably will go home tomorrow, December 15. The patient is able to ambulate independently now. Creatinine is up slightly to 2.0 but she does not appear to have any volume depletion and this will be repeated tomorrow. Her baseline white blood cell count is elevated due to CLL and has gone slightly higher due to steroid therapy. This will eventually return to her baseline. Review of Systems 2 Review of Systems: Constitutional-no fever or chills. Lethargy has resolved ENT-no blurred vision, no double vision, no epistaxis, no sore throat Respiratory-no cough, no wheezing, no shortness of breath Cardiac-no palpitations, no chest pain, no syncope GI-no nausea, vomiting, diarrhea, melena, hematochezia -no urinary retention, no urinary incontinence, no dysuria, no hematuria Musculoskeletal-lumbar discomfort radiating to the left leg, no muscle tenderness Skin-no bruising, no rashes, no pruritus Neuro-no isolated weakness, no paresthesia Psych-no depression, no anxiety Physical Exam 2 Physical Exam: General-alert and oriented. No fever, no chills HEENT-head atraumatic and normocephalic, pupils equal and reactive to light, extraocular muscles intact Neck-no lymphadenopathy or thyromegaly, trachea midline Chest-clear to auscultation. No rales, wheezing or rhonchi Cardiac-regular rate and rhythm, normal S1 and S2 Abdomen-normal bowel sounds, nontender, no hepatosplenomegaly Extremities-no cyanosis, clubbing, or edema Neuro-cranial nerves II through XII intact, motor and sensory function within normal limits, strength symmetrical, no focal deficits Psych-normal affect, normal mood Results & Data Results & Data Vital Signs (Past 12 Hours) Vital Signs Temp Pulse Resp BP Pulse Ox O2 Del Method 12/15/23 07:43 36.8 C 71 16 123/74 94 Room Air Laboratory Results 12/15/23 06:05 12/15/23 06:05 PG Care Time/CCT Total # of Minutes Spent Total Time Spent with Patient: Total time spent is greater than 50% in coordination of care (as documented) at patient's floor/unit and/or counseling patient: Coding Level of Care Code 50891 SUB INP/OBS CARE 2/35MIN Diagnoses Radicular low back pain M54.10 Essential hypertension I10 Hypertension type: essential hypertension Other depression F32.89 Depression Type: other depression Diabetes mellitus, type 2 E11.9 PAF (paroxysmal atrial fibrillation) I48.0 Ischemic cardiomyopathy I25.5 CLL (chronic lymphocytic leukemia) C91.90 (2) Hypertension Hypertension type: essential hypertension Qualified Code(s): I10 - Essential (primary) hypertension (3) Depression Depression Type: other depression Qualified Code(s): F32.89 - Other specified depressive episodes
[2023-12-15] MEDS ORDERED: Nursing to Pharmacy Communication SCH (23:15)
--- NOTE | 2023-12-16 07:07 | Electrocardiogram Report ---
Test Reason : Blood Pressure : / mmHG Vent. Rate : 058 BPM Atrial Rate : 058 BPM P-R Int : 226 ms QRS Dur : 106 ms QT Int : 478 ms P-R-T Axes : 061 011 094 degrees QTc Int : 469 ms Sinus bradycardia with 1st degree A-V block Left ventricular hypertrophy with repolarization abnormality Possible Inferior infarct , age undetermined Abnormal ECG When compared with ECG of 19-JUN-2023 07:46, Criteria for Anteroseptal infarct are no longer Present Borderline criteria for Inferior infarct are now Present Confirmed by Joseph Mims ([id number]) on 12/16/2023 7:07:34 AM Referred By: REFERRED SELF Confirmed By:Joseph Mims
[2023-12-16 10:42] LABS: BUN Creatinine Ratio 36.9 (10-20); Calcium 9.3 mg/dl (8.6-10.3); Creatinine Clr Calc Pharmacy 24.9 ml/min; Est GFR (African American) 26.2 ml/min; Est GFR (Non-African American) 22.6 ml/min; Potassium 4.8 mmol/L (3.5-5.1)
[2023-12-16 10:45] LABS: INR 1.1 (0.9-1.1); Prothrombin Time 11.8 Seconds (9.0-12.0)
[2023-12-16 10:49] LABS: Hematocrit (blood only) 33.9 % (37.0-47.0); Hemoglobin 11.2 g/dl (12.0-16.0); Mean Corpuscular Hemoglobin 32.8 pg (25.0-34.0); Mean Corpuscular Volume 99.4 fL (80.0-100.0); Mean Platelet Volume 10.5 fL (9.4-12.4); Platelet Count 258 K/uL (130-400); RDW Coefficient of Variation 13.5 % (11.5-14.5); RDW Standard Deviation 49.5 fL (36.4-46.3); Red Blood Count 3.41 M/uL (4.20-5.40); White Blood Count 44.63 K/ul (4.8-10.8)
--- NOTE | 2023-12-16 12:01 | Discharge Summary ---
Date of Service December 16, 2023 Admission HPI Per Admitting Provider Jere Diaz is a 78yo female with PMH of chronic low back pain, HFpEF, CAD s/p anteroapical CT in 2010, HTN, paroxysmal a fib, Diet controlled T2DM, CKD, CLL, anxiety, and severe OA of the left hip and right knee, who presented to the [facility] ED on 12/13/23 with complaints of low back pain with radiation into the LLE. She remained stable in the ED. Labs were not obtained prior to the time of admission. Xray of the pelvis was negative for acute findings. Her pain was mildly improved with a dose of Oxycodone/Acetaminophen in the ED. We were asked to admit to the patient for ongoing pain control and possible placement. At the time of the exam the patient was lying in bed in no acute distress with her Daughter/POA bedside, history was obtained from both. Patient has been living with her Daughter due to chronic OA of the BL LE and low back pain which causes baseline ambulatory dysfunction. She had been in her normal state of health until yesterday afternoon. She was sitting on her bed after getting a shower. She bent forward to put her pants on and had a sudden onset of severe low back pain with radiation down the lateral LLE. The patient is usually tolerable at rest but significant exacerbated with any movement. States it feels like sharp/stabbing pain with associated muscle cramps; 10/10 at it's most severe. Is currently unable to safely ambulate due to her pain. Denies saddle anesthesia, loss of bowel or bladder function, or recent falls. Denies new paresthesias in the BL LE since the incident yesterday. Denies recent fever, chills, chest pain, SOB, cough, nausea, vomiting, abd pain, dysuria, hematuria, melena, and LE swelling. She is a full code and her Daughter is her POA. Please refer to Dr. Santillan's attestation for any changes to the treatment plan Principal Diagnosis Left lumbar radiculopathy, lumbar foraminal stenosis, acute toxic encephalopathy due to Lyrica Discharge Exam General-alert and oriented. No fever, no chills HEENT-head atraumatic and normocephalic, pupils equal and reactive to light, extraocular muscles intact Neck-no lymphadenopathy or thyromegaly, trachea midline Chest-clear to auscultation. No rales, wheezing or rhonchi Cardiac-regular rate and rhythm, normal S1 and S2 Abdomen-normal bowel sounds, nontender, no hepatosplenomegaly Extremities-no cyanosis, clubbing, or edema Neuro-cranial nerves II through XII intact, motor and sensory function within normal limits, strength symmetrical, no focal deficits Psych-normal affect, normal mood Discharge Data Allergies Allergy/AdvReac Type Severity Reaction Status Date / Time bee venom protein (honey bee) Allergy Severe Anaphylaxis Verified 11/29/23 13:01 Penicillins Allergy Severe Rash, Verified 11/29/23 13:01 anaphylaxis Sulfa (Sulfonamide Allergy Severe Rash, Verified 11/29/23 13:01 Antibiotics) anaphylaxis Consultations 12/13/23 13:35 ED Decision to Admit Stat Ordered Studies 12/13/23 15:45 CT lumbar spine wo con Stat 12/13/23 17:58 MRI Lumbar Spine [MR lumbar spine wo con] Urgent Hospital Course (1) Radicular low back pain: Parenteral steroid therapy has helped considerably. She states her back pain is at least 50% better. She will be switched to a short course of oral prednisone taper at discharge. Lyrica has been discontinued due to side effects. Supportive care. Multilevel foraminal stenosis noted on lumbar CT scan and MRI (2) Hypertension: Stable. Continue Carvedilol, Entresto (3) Depression: Stable. Continue sertraline (4) Diabetes mellitus, type 2: ADA diet. Sliding scale coverage. Parenteral steroid therapy has caused mild hyperglycemia. Will follow. (5) PAF (paroxysmal atrial fibrillation): Stable. Continue Elqiuis, amiodarone, Carvedilol (6) Ischemic cardiomyopathy: Stable. Continue current medical management (7) CLL (chronic lymphocytic leukemia): Leukocytosis noted as expected. White blood cell count has risen with steroid therapy as expected. Serial labs (8) Toxic encephalopathy: Due to Lyrica which has been discontinued. Now resolved Plan Home today, December 15, on prednisone tapering dose Total Time Total Time Spent Total Time Spent (In Minutes): 45-minute Discharge Plan Discharge Items Patient Disposition: Home - Home Health Services Reason For Visit: BL LE PAIN, AMBULATORY DYSFUNCTION Discharge Diagnosis: Lumbar foraminal stenosis with left lumbar radiculopathy, acute toxic encephalopathy Activity: Resume your previous activity Non-emergency contact: Primary Care Provider Call non-emergency contact if: your symptoms worsen Follow-up/Referrals: Arlen Frederick MD [Primary Care Provider] - Diet: Carb Consistent or DM2 and Heart Healthy Addtl Attending Provider Instructions: Take prednisone in a tapering dose fashion as directed. All other medications remain the same Pending Studies at Discharge: No Stand-Alone Forms: My [facility] [place], Smoking Cessation Medications and DC Order Prescriptions: New prednisone 10 mg Tablet See Rx Instructions .ROUTE .COMPLEX Qty: 12 0RF Rx Instructions: 10 mg orally 3 times a day for 2 days, then 10 mg twice a day for 2 days, then 10 mg once a day for 2 days, then stop Continued Eliquis 5 mg tablet 5 mg PO BID Qty: 180 1RF Rx Instructions: TAKE 1 TABLET BY MOUTH TWICE A DAY Entresto 97-103 mg tablet 1 tab PO BID Qty: 120 3RF albuterol sulfate 90 mcg/actuation HFA aerosol inhaler 1 puff inhalation Q6H PRN (Reason: Shortness Of Breath) Qty: 8.5 1RF Rx Instructions: INHALE 1 PUFF BY MOUTH EVERY 6 HOURS NEEDED FOR SHORTNESS OF BREATH amiodarone 200 mg tablet 200 mg PO QAM Qty: 90 1RF atorvastatin [Lipitor] 80 mg tablet 80 mg PO HS Qty: 90 3RF carvedilol 6.25 mg tablet 6.25 mg PO BID Qty: 180 3RF cholecalciferol (vitamin D3) 50 mcg (2,000 unit) tablet 2,000 unit PO QAM Qty: 90 0RF clopidogrel 75 mg tablet 75 mg PO DAILY Qty: 90 3RF folic acid 1 mg tablet 1 mg PO DAILY Qty: 90 0RF (DME) Comfort Touch Ult Thin Lancets 31 gauge misc See Rx Instructions .Route Qty: 100 3RF Rx Instructions: pt tests every other day nitroglycerin [Nitrostat] 0.4 mg tablet, sublingual 0.4 mg sublingual UD PRN (Reason: Chest Pain) Qty: 25 1RF sertraline [Zoloft] 100 mg tablet 100 mg PO DAILY Qty: 90 1RF spironolactone 25 mg tablet 25 mg PO DAILY Qty: 90 0RF Rx Instructions: TAKE 1 TABLET BY MOUTH EVERY DAY (DME) OneTouch Verio test strips Strip See Rx Instructions .ROUTE .MEDSUPPLY Qty: 100 1RF Rx Instructions: check once daily Dx code: E11.9 furosemide 20 mg tablet 20 mg PO QAM Qty: 90 3RF Rx Instructions: Can take and additional 20mg tablet as needed for weight gain, swelling or edema. fexofenadine 180 mg tablet 180 mg PO Q24H Qty: 90 3RF fluticasone propionate 50 mcg/actuation spray,suspension 1 spray intranasal QAM Qty: 48 1RF mecobalamin (vitamin B12) 1,000 mcg tablet,chewable 1,000 mcg PO DAILY Qty: 90 1RF guaifenesin [Mucinex] 600 mg Tablet Extended Release 12hr 600 mg PO UD PRN (Reason: Congestion) Tymlos 80 mcg (3,120 mcg/1.56 mL) pen injector 80 mcg SUBCUT QAM Patient Comments: Daughter wants to know if she needs to bring the medication in Discharge Orders: Discharge Order (Routine); Ordered 12/16/23 Ordered By: Emeterio Dacosta Admission Data Admit Date/Time: 12/13/23 13:36 Attending Provider: Emeterio Dacosta Admit Provider: Aaron Santillan Primary Care Provider: Arlen Frederick Other Providers: Aaron Santillan; [facility] Fax Coding Level of Care Code 36878 INP/OBS DISCH >30 MIN Diagnoses Radicular low back pain M54.10 Essential hypertension I10 Hypertension type: essential hypertension Other depression F32.89 Depression Type: other depression Diabetes mellitus, type 2 E11.9 PAF (paroxysmal atrial fibrillation) I48.0 Ischemic cardiomyopathy I25.5 CLL (chronic lymphocytic leukemia) C91.90 Toxic encephalopathy G92.9
[2023-12-16] MEDS: predniSONE 10 MG TABLET PO SCH (13:43)
== END 2023-12-16 14:00 | disposition home health service (06) | DRG 551 ==
LOC: ED 09:53 → SUATTDRO 13:36 → INTOOBSV 13:36 → 3N 13:36

== ENCOUNTER 2023-12-27 08:49 | Observation (INO) ==
--- NOTE | 2023-12-27 09:00 | Emergency Department Note ---
Impression & Plan CHF (congestive heart failure), Elevated troponin I level ED Provider Note NAME: WALE POLLARD AGE: 78 SEX: F : 1945 ARRIVES VIA: Ambulance INFORMANT: Patient, ED PROVIDER(S): Rigo Holden DO CHIEF COMPLAINT: Shortness of breath HPI: The patient is an 78-year-old female who presented to the emergency department for shortness of breath. The patient has a history of CHF. She states that she has been compliant with her outpatient medication except this morning she did not take her fluid pill. She been having problems over the course of the last 3 to 4 months. She has been in our facility multiple times with similar complaints. The patient states that she has been using her inhaler as well. The patient had a recent back injury. She has not been as active. She called her family doctor this morning to be seen today because of ongoing symptoms but did not get a return call so she called 911. The patient denies having any chest pain. She denies having any abdominal pain or fever. ROS: See above HPI for pertinent positives & negatives. A total of 10 systems reviewed and were otherwise negative. PAST MEDICAL HISTORY: See Below PAST SURGICAL HISTORY: See Below FAMILY HISTORY: See Below SOCIAL HISTORY: See Below HOME MEDICATIONS: See Below ALLERGIES: See Below VITALS: See Below PHYSICAL EXAMINATION: GENERAL: Patient is awake alert in no acute distress patient is resting comfortably and showing no signs of anxiety EYES: The conjunctivae are clear. The pupils are round and reactive. EARS, NOSE, MOUTH AND THROAT: The nose is without any evidence of any deformity. NECK: The neck is nontender and supple. RESPIRATORY: Diminished breath sounds are noted throughout. There were rales in both lower lung mustafa. Slight wheezing was noted in the upper lung mustafa. There is no tachypnea or conversational dyspnea. CARDIOVASCULAR: Regular rate and rhythm noted there no murmurs rubs or gallops normal S1 normal S2. GASTROINTESTINAL: The abdomen is soft. Abdomen is nontender. MUSCULOSKELETAL/EXTREMITIES: There is no evidence of gross deformity full range of motion is noted in the hips and shoulders. SKIN: There is no obvious evidence of any rash. There are no petechiae, pallor or cyanosis noted. NEUROLOGIC: Patient is awake alert and oriented x3 MEDICAL DECISION MAKING: The patient is an 78-year-old female who has a history of congestive heart failure who presented to the emergency department for an evaluation of difficulty breathing. The patient's history and physical exam appear to be consistent with pulmonary edema CHF. The patient was also found have an elevated troponin. EKG shows no specific change compared to previous tracing. I discussed the patient's laboratory and radiographic studies with her and her daughter. Given her elevated troponin I did discuss her condition with the on- call hospitalist team. They have agreed to evaluate the patient in the emergency department for further management and disposition. The patient was treated with aspirin and Lasix. Triage Nursing notes reviewed. Prior medical records reviewed Vital Signs: reviewed and remarkable for bradycardia and elevated blood pressure. Differential diagnosis: Reactive airway disease, pneumonia, pneumothorax, COPD, CHF, infections, cardiac ischemia, pulmonary embolism, musculoskeletal, gastrointestinal, as well as other pathologies. ER treatment provided: See below Diagnostics interpreted by me: ECG: EKG was obtained in the emergency department. My interpretation is normal sinus rhythm at 61 bpm. There is no ectopy. Inferior Q waves were noted. LVH was noted by voltage criteria. There was lateral ST segment depressions noted. This was compared to a tracing from December 13, 2023. No specific changes were noted. A prehospital EKG was evaluated. My interpretation is poor baseline, sinus rhythm at 67 bpm. PACs were noted. ST segment abnormalities were noted in the lateral leads. This compares similar to the EKG obtained in the emergency department. Cardiac Monitoring: An order was placed for continuous cardiac monitoring. The monitor shows a rate of 56 bpm with sinus bradycardia. Laboratory studies: As stated above and show below. Imaging studies: See below. Radiographic imaging was reviewed by myself Consultation(s): I discussed this case with Dr. Cardona who is on-call for the [facility] hospitalist group. Past Med/Surg History Medical History CKD (chronic kidney disease) stage 3, GFR 30-59 ml/min Seasonal allergies Cerebral artery occlusion History of CHF (congestive heart failure) Osteoarthritis of right knee GEL SHOT, MOST RECENT INJECTION FEBRUARY 2021 DM2 (diabetes mellitus, type 2) History of colon polyps Nausea and vomiting after administration of anesthetic agent Osteoarthritis Leukemia just monitoring On anticoagulant therapy Hearing deficit Depression Anxiety Spinal stenosis Stroke x3 ?----no neurologist, left arm weakness, uses cane to ambulate Hypertension Hyperlipidemia Atrial fibrillation DX 2018 ? DR KENNEDY - NO HX CARDIOVERSION Myocardial Infarction 2011 & 2019...STENT X 1 Asthma LAST USE LAST WEEK Surgical History Hx of cataract surgery B/L H/O heart artery stent HX MD , STENT X1 2019 History of phacoemulsification of cataract of both eyes with intraocular lens implantation History of dilatation and curettage x3 History of total left knee replacement (TKR) History of right breast biopsy x3--benign History of laparoscopy History of bilateral breast reduction surgery History of colonoscopy Family History Mother Family history of diabetes mellitus Myocardial infarction Family/Other Family history of diabetes mellitus cousin Aunt Breast cancer Father Myocardial infarction Stroke Other No family history of adverse response to anesthesia Denies family history of Ovarian cancer Prostate cancer Colorectal cancer Uterine cancer Social History Smoking Status: Never smoker Tobacco Type: Cigarettes Age Started Using Tobacco: 53; Age Quit Using Tobacco: 62; Cigarettes Per Day: HX OCCASSIONAL CIGARETTE 15 YRS AGO; Second Hand Exposure: No; Do You Dip or Chew Tobacco: No; Hx Alcohol Use: Yes Alcohol type: wine Alcohol Intake Frequency: 2-4 x/Month Hx Substance Use: No Preferred Language: Frisian Communication Ability: Effective Visual Impairment: No Limitations Hearing Ability: Use of Hearing Aid Die Maintenance Technician Required: No Beliefs That Will Affect Care: Jew Jew Beliefs: FAITH marital status: / Current Living Situation: Other Current Living Situation Comment: Lives with daughter, Lita Prater. current occupational status: retired current occupation: worked for [employer] Feels Safe at Home: Yes Childhood Exposure to Second-Hand Smoke: Yes Diet: low salt Diet Comment: low sodium Dental Care, Regularly: Yes Physical Activity Frequency: Does not Exercise Seatbelt Use: always Sunscreen Use: No Assistive Devices: Cane, Walker, Wheelchair and Other Allergies Allergies Allergy/AdvReac Type Severity Reaction Status Date / Time bee venom protein (honey bee) Allergy Severe Anaphylaxis Verified 12/20/23 09:57 Penicillins Allergy Severe Rash, Verified 12/20/23 09:57 anaphylaxis Sulfa (Sulfonamide Allergy Severe Rash, Verified 12/20/23 09:57 Antibiotics) anaphylaxis Home Meds Home Medications Medication Instructions Recorded Confirmed abaloparatide (Tymlos) 80 mcg subcut QAM 06/19/23 12/27/23 Previous Rx's Medication Instructions Recorded albuterol sulfate 90 mcg/actuation 1 puff inhalation Q6H PRN 08/25/23 aerosol inhaler Shortness Of Breath #8.5 grams amiodarone 200 mg tablet 200 mg PO QAM #90 tabs 08/25/23 apixaban 5 mg tablet (Eliquis) 5 mg PO BID #180 tabs 08/25/23 atorvastatin 80 mg tablet (Lipitor) 80 mg PO HS #90 tabs 08/25/23 carvedilol 6.25 mg tablet 6.25 mg PO BID #180 tabs 08/25/23 cholecalciferol (vitamin D3) 50 2,000 unit PO QAM #90 tabs 08/25/23 mcg (2,000 unit) tablet clopidogrel 75 mg tablet 75 mg PO DAILY #90 tabs 08/25/23 folic acid 1 mg tablet 1 mg PO DAILY #90 tabs 08/25/23 lancets 31 gauge (Comfort Touch #100 ea 08/25/23 Ultra Thin Lancets) nitroglycerin 0.4 mg sublingual 0.4 mg sublingual UD PRN Chest 08/25/23 tablet (Nitrostat) Pain #25 tabs sacubitril 97 mg-valsartan 103 mg 1 tab PO BID #120 tabs 08/25/23 tablet (Entresto) sertraline 100 mg tablet (Zoloft) 100 mg PO DAILY #90 tabs 08/25/23 spironolactone 25 mg tablet 25 mg PO DAILY #90 tabs 08/25/23 blood sugar diagnostic (OneTouch #100 ea 09/01/23 Verio test strips) furosemide 20 mg tablet 20 mg PO QAM #90 tabs 11/10/23 mecobalamin (vitamin B12) 1,000 1,000 mcg PO DAILY #90 tabs 11/12/23 mcg chewable tablet fexofenadine 180 mg tablet 180 mg PO Q24H #90 tabs 11/24/23 fluticasone propionate 50 1 spray intranasal QAM #48 mL 12/02/23 mcg/actuation nasal spray,suspension polyethylene glycol 3350 17 17 g PO DAILY #119 grams 12/20/23 gram/dose oral powder (Miralax) tramadol 50 mg tablet 50 mg PO BID PRN pain #60 tabs 12/20/23 Results & Data (ED) Vital Signs Vital Signs - 24 hr 12/27/23 08:55 12/27/23 08:57 12/27/23 09:01 Temperature 37.0 C Temperature Source Oral Pulse Rate 62 Respiratory Rate 18 Respiratory Effort / Characteristics Non-Labored Spontaneous Respiratory Depth Normal Respiratory Pattern Blood Pressure 150/72 H Blood Pressure Mean 98 Pulse Oximetry 99 Oxygen Delivery Method Room Air Room Air Room Air Sepsis Recent Fever Within 48 Hours No Sepsis New/Unexplained Change in Mental Status No Sepsis Action Taken by Nursing No Action Required 12/27/23 09:02 12/27/23 09:16 Temperature Temperature Source Pulse Rate 56 L Respiratory Rate Respiratory Effort / Characteristics Respiratory Depth Normal Respiratory Pattern Regular Blood Pressure Blood Pressure Mean Pulse Oximetry Oxygen Delivery Method Sepsis Recent Fever Within 48 Hours Sepsis New/Unexplained Change in Mental Status Sepsis Action Taken by Longterm Medications Current Medication List: was personally reviewed by me Laboratory Data Attestation: I reviewed the patient's lab results. 12/27/23 08:12 12/27/23 08:12 Lab Results 12/27/23 12/27/23 Range/Units 08:12 08:18 WBC 30.41 H* (4.8-10.8) K/ul RBC 3.25 L (4.20-5.40) M/uL Hgb 10.4 L (12.0-16.0) g/dl Hct 33.4 L (37.0-47.0) % MCV 102.8 H (80.0-100.0) fL MCH 32.0 (25.0-34.0) pg MCHC 31.1 L (32.0-36.0) g/dL RDW Std Deviation 54.0 H (36.4-46.3) fL RDW Coeff of Nino 14.3 (11.5-14.5) % Plt Count 218 (130-400) K/uL MPV 10.0 (9.4-12.4) fL PT 12.3 H (9.0-12.0) Seconds INR 1.1 (0.9-1.1) APTT 34 H (21-31) Seconds PTT Ratio 1.2 Sodium 137 (136-145) mmol/L Potassium 4.8 (3.5-5.1) mmol/L Chloride 107 (98-107) mmol/L Carbon Dioxide 22 (21-32) mmol/L Anion Gap 8 (3-11) BUN 34 H (6-23) mg/dl Creatinine 1.42 H (0.6-1.2) mg/dl Est Cr Clr Drug Dosing 37.0 ml/min Est GFR ( Amer) 40.3 ml/min Est GFR (Non-Af Amer) 34.8 ml/min BUN/Creatinine Ratio 23.9 H (10-20) Glucose 167 H (70-99(Fasting)) mg/dl Calcium 9.3 (8.6-10.3) mg/dl Magnesium 1.9 (1.7-2.4) mg/dl Total Bilirubin 0.6 (0.2-1.0) mg/dl AST 13 (13-39) U/L ALT 16 (7-52) U/L Alkaline Phosphatase 85 (34-104) U/L Troponin I High Sens 70.7 H* (0-14) pg/ml B-Natriuretic Peptide 1303 H (0-100) pg/ml Total Protein 6.2 (6.0-8.3) gm/dl Albumin 3.5 (3.4-5.0) gm/dl Globulin 2.7 (2.5-4.0) gm/dl Albumin/Globulin Ratio 1.3 (0.9-2) SARS-CoV-2 (PCR) NEGATIVE (Negative) Influenza Type A (PCR) Negative (Neg) Influenza Type B (PCR) Negative (Neg) RSV (RT-PCR) Negative (Neg) Imaging Data Attestation: I personally reviewed and interpreted this imaging study as follows: My Impression: 1 view chest x-ray was obtained in the emergency department. My interpretation is atelectasis at the right base, no definite filtrate, final report below Radiologist's Impression: Chest X-Ray 12/27/23 08:57 XR chest 1V portable HISTORY: Dyspnea COMPARISON: Chest 12/13/2023. FINDINGS: No pneumothorax. No pleural effusions. The cardiac silhouette remains mildly enlarged. Mild interstitial thickening again noted. This is likely chronic. No new focal lung consolidations to suggest a pneumonia. No evidence for pulmonary edema. There are calcifications within the aortic knob. Scoliosis, unchanged. Degenerative changes within the shoulders most pronounced on the left. IMPRESSION: No significant change compared to the prior study. No acute process. ACT 112: Negative or not required by law. Electronically signed by: Arnel Cortés M.D. 12/27/2023 10:25 AM Discharge Plan Visit Data Chief Complaint: Shortness of Breath/Dyspnea ED Provider: Rigo Holden Discharge Problem: CHF (congestive heart failure), Elevated troponin I level Patient Disposition: Being Evaluated by Hospitalist Forms Stand Alone Forms: My [facility] Prescriptions Prescriptions: No Action Eliquis 5 mg tablet 5 mg PO BID Qty: 180 1RF Rx Instructions: TAKE 1 TABLET BY MOUTH TWICE A DAY Entresto 97-103 mg tablet 1 tab PO BID Qty: 120 3RF albuterol sulfate 90 mcg/actuation HFA aerosol inhaler 1 puff inhalation Q6H PRN (Reason: Shortness Of Breath) Qty: 8.5 1RF Rx Instructions: INHALE 1 PUFF BY MOUTH EVERY 6 HOURS NEEDED FOR SHORTNESS OF BREATH amiodarone 200 mg tablet 200 mg PO QAM Qty: 90 1RF atorvastatin [Lipitor] 80 mg tablet 80 mg PO HS Qty: 90 3RF carvedilol 6.25 mg tablet 6.25 mg PO BID Qty: 180 3RF cholecalciferol (vitamin D3) 50 mcg (2,000 unit) tablet 2,000 unit PO QAM Qty: 90 0RF clopidogrel 75 mg tablet 75 mg PO DAILY Qty: 90 3RF folic acid 1 mg tablet 1 mg PO DAILY Qty: 90 0RF (DME) Comfort Touch Ult Thin Lancets 31 gauge misc See Rx Instructions .Route Qty: 100 3RF Rx Instructions: pt tests every other day nitroglycerin [Nitrostat] 0.4 mg tablet, sublingual 0.4 mg sublingual UD PRN (Reason: Chest Pain) Qty: 25 1RF sertraline [Zoloft] 100 mg tablet 100 mg PO DAILY Qty: 90 1RF spironolactone 25 mg tablet 25 mg PO DAILY Qty: 90 0RF Rx Instructions: TAKE 1 TABLET BY MOUTH EVERY DAY (DME) OneTouch Verio test strips Strip See Rx Instructions .ROUTE .MEDSUPPLY Qty: 100 1RF Rx Instructions: check once daily Dx code: E11.9 furosemide 20 mg tablet 20 mg PO QAM Qty: 90 3RF Rx Instructions: Can take and additional 20mg tablet as needed for weight gain, swelling or edema. fexofenadine 180 mg tablet 180 mg PO Q24H Qty: 90 3RF fluticasone propionate 50 mcg/actuation spray,suspension 1 spray intranasal QAM Qty: 48 1RF mecobalamin (vitamin B12) 1,000 mcg tablet,chewable 1,000 mcg PO DAILY Qty: 90 1RF tramadol 50 mg tablet 50 mg PO BID PRN (Reason: pain) Qty: 60 0RF polyethylene glycol 3350 [Miralax] 17 gram/dose powder 17 g PO DAILY Qty: 119 5RF Tymlos 80 mcg (3,120 mcg/1.56 mL) pen injector 80 mcg SUBCUT QAM Patient Comments: Daughter wants to know if she needs to bring the medication in Referrals Referrals: Arlen Frederick MD [Primary Care Provider] - Discharge Problem: CHF (congestive heart failure) Qualifiers: Heart failure type: unspecified Heart failure chronicity: acute on chronic Q ualified Code(s): I50.9 - Heart failure, unspecified
--- NOTE | 2023-12-27 09:02 | Electrocardiogram Report ---
Test Reason : Blood Pressure : / mmHG Vent. Rate : 061 BPM Atrial Rate : 061 BPM P-R Int : 192 ms QRS Dur : 096 ms QT Int : 424 ms P-R-T Axes : 051 030 065 degrees QTc Int : 426 ms Normal sinus rhythm Left ventricular hypertrophy with repolarization abnormality Anterior infarct , age undetermined Abnormal ECG When compared with ECG of 13-DEC-2023 18:05, [place] interval has decreased Anterior infarct is now Present Borderline criteria for Inferior infarct are no longer Present Nonspecific T wave abnormality now evident in Inferior leads T wave inversion no longer evident in Lateral leads Confirmed by Edgardo Sanders ([id number]) on 12/27/2023 9:02:06 AM Referred By: Confirmed By:Michael Sanders
[2023-12-27 09:44] LABS: Hematocrit (blood only) 33.4 % (37.0-47.0); Hemoglobin 10.4 g/dl (12.0-16.0); Mean Corpuscular Hgb Conc 31.1 g/dL (32.0-36.0); Mean Corpuscular Volume 102.8 fL (80.0-100.0); Platelet Count 218 K/uL (130-400); RDW Coefficient of Variation 14.3 % (11.5-14.5); Red Blood Count 3.25 M/uL (4.20-5.40); White Blood Count 30.41 K/ul (4.8-10.8)
[2023-12-27 10:01] LABS: Albumin Globulin Ratio 1.3 (0.9-2); Albumin Level 3.5 gm/dl (3.4-5.0); BUN Creatinine Ratio 23.9 (10-20); Bilirubin,Total 0.6 mg/dl (0.2-1.0); Calcium 9.3 mg/dl (8.6-10.3); Est GFR (African American) 40.3 ml/min; Est GFR (Non-African American) 34.8 ml/min; Globulin 2.7 gm/dl (2.5-4.0); Magnesium 1.9 mg/dl (1.7-2.4); Potassium 4.8 mmol/L (3.5-5.1); Total Protein 6.2 gm/dl (6.0-8.3)
[2023-12-27 10:07] LABS: Troponin I High Sensitivity 70.7 pg/ml (0-14)
[2023-12-27 10:08] LABS: INR 1.1 (0.9-1.1); Partial Thromboplastin Ratio 1.2; Partial Thromboplastin Time 34 Seconds (21-31); Prothrombin Time 12.3 Seconds (9.0-12.0)
[2023-12-27 10:20] LABS: Influenza A virus by PCR Negative (Neg); Influenza B virus by PCR Negative (Neg); RSV by PCR Negative (Neg); SARS CoV2 RNA(COVID-19) Ceph NEGATIVE (Negative)
--- NOTE | 2023-12-27 10:26 | XRay Report ---
XR chest 1V portable HISTORY: Dyspnea COMPARISON: Chest 12/13/2023. FINDINGS: No pneumothorax. No pleural effusions. The cardiac silhouette remains mildly enlarged. Mild interstitial thickening again noted. This is likely chronic. No new focal lung consolidations to sug gest a pneumonia. No evidence for pulmonary edema. There are calcifications within the aortic knob. S coliosis, unchanged. Degenerative changes within the shoulders most pronounced on the left. IMPRESSION: No significant change compared to the prior study. No acute process. ACT 112: Negative or not required by law. Electronically signed by: Arnel Cortés M.D. 12/27/2023 10:25 AM
[2023-12-27] MEDS: FUROSEMIDE 40 MG/4 ML VIAL IV ONE (10:29)
[2023-12-27 10:31] LABS: Basophils # (auto) 0.09 K/uL (0.00-0.20); Basophils % (auto) 0.3 %; Eosinophils # (auto) 0.33 K/uL (0.00-0.50); Eosinophils % (auto) 1.1 %; Immature Granulocytes # (auto) 0.14 K/uL (0.01-0.20); Immature Granulocytes % (auto) 0.5 %; Lymphocytes # (auto) 18.72 K/uL (1.20-3.40); Lymphocytes % (auto) 61.6 %; Monocytes # (auto) 0.97 K/uL (0.11-0.59); Monocytes % (auto) 3.2 %; Neutrophils # (auto) 10.16 K/uL (1.40-6.50); Neutrophils % (auto) 33.3 %; Polychromasia 1+; Smudge Cells Present
[2023-12-27] MEDS: ASPIRIN CHEW 324 MG PO STA (10:48)
[2023-12-27] MEDS: NITROGLYCERIN 2% OINTMENT 30GM TUBE EXT SCH (10:48)
--- NOTE | 2023-12-27 10:56 | History & Physical Report ---
Date of Service December 27, 2023 Assessment & Plan (1) Chronic combined systolic and diastolic CHF (congestive heart failure): Plan: Shortness of breath, suspect acute on chronic CHF 45-50%. DDx includes viral URI Chart review shows recent dry weight of around 93-94 kg; admitting weight 103.6 kg Chest x-ray: Similar to prior no acute pulmonary edema? Small right pleural effusion BNP elevated to 1303, last 790 on 07/18 Baseline EKG sinus bradycardia with first-degree AV block, EKG on admission sinus rhythm without territorial ST changes. V3 T wave inversion is present compared to prior Patient denies significant leg swelling, orthopnea. Does have some JVD about 2 cm above the clavicle with HJR up to the mandible Missed her morning Lasix dose. She is not severely and overtly fluid overloaded, however shows some signs of mild CHF. Will convert to IV 40 mg daily. Her dyspnea may due to this, or multifactorial with superimposed URI especially given sputum change and that her daughter had a viral URI last week Her white count is markedly elevated in the setting of CLL and this is not a reliable marker, she has not had fever/sweats/chills/night sweats; although has had a cough with change in sputum production from green-yellow. No signs of lobar pneumonia on chest x-ray. Procalcitonin added. Antibiotics not indicated at time of admission. He is not septic at time of admission Daughter did recently have a viral URI which was negative on flu/RSV/COVID testing. Panel expanded to Endorse. No indication for antibiotics at time of admission; will follow fever curve. If clinically worsening obtain CTchest. Patient is anticoagulated and compliant with her Eliquis, low suspicion for PE Chest pain Single episode of chest pain 2 days ago which resolved after couple of minutes with 1 nitro tab. No chest pain since. No acute ischemic EKG changes. Patient with recent Trop elevation of around 29/35 baseline; admitting Trop 70.7. Repeat troponin pending Suspect demand ischemia Follow on medical telemetry, chest pain-free on admission. If chest pain develops will give nitro tab and start 1 inch of Nitropaste, repeat EKG (2) CKD (chronic kidney disease) stage 3, GFR 30-59 ml/min: Plan: - baseline cr ~1.55 - Admit Cr 1.42, no ALLAN - BMP daily (3) CLL (chronic lymphocytic leukemia): Plan: History of CLL Follows with [facility] hematology oncology; has not received CLL treatment thus far Admitting leukocyte count 30.41, last on 12/14 and 12/15 were 44 No fevers, chills. No weight loss. (4) Diabetes mellitus, type 2: Plan: Last A1c 6.5% Goal BSG [id number] DM 2, heart healthy, low-salt, fluid restricted diet Basal bolus insulin while admitted 9 units twice daily, CF 40, carb ratio 15 (5) PAF (paroxysmal atrial fibrillation): Plan: Admitting EKG NSR, amiodarone, carvedilol, Eliquis continued (6) Radicular low back pain: Plan: Radicular low back pain And improved with prior admission with IV steroids and was discharged on prednisone taper. Limited treatment options, and patient did not tolerate Lyrica Unable to tolerate NSAIDs due to 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 Is on tramadol as outpatient, pending follow-up with pain management Plan DVT prophylaxis: Anticoagulated Diet: Heart healthy, low-salt, fluid restricted, DM2 Disposition: Medical telemetry CODE STATUS: Full code History of Present Illness Primary Care Provider: Arlen Frederick MD Kaylie is an 78-year-old female with past medical history of ischemic CHF with systolic and diastolic heart failure, type II DM, GERD, hypertension, dep ression, CKD 3, A-fib on apixaban and amiodarone recently discharged 12/13/23- 12/16/23 after an admission for radicular back pain improved on IV steroids and discharged to home on a prednisone taper who presents with shortness of breath. Patient was seen with her daughter at bedside. She reports that she actually was doing well after getting out of the hospital and her back pain improved and remains adequately controlled. Unfortunately she has become progressively short of breath over the last few days. She was last normal on , approximately 5 days ago. 4 days ago she had an increased cough and green sputum production. She had progressive shortness of breath over the next 2 days and had a brief episode of chest pain in the center of her chest which resolved with 1 dose of nitro and has had no chest pain since. She notes she has a history of GERD and bad reflux and takes a significant number of Tums which usually help, did not help on Wednesday but the nitro did. She does feel her reflux-like symptoms have been worse and is not sure if these are associated with dyspnea. She denies shortness of breath, chest pain, chest pressure, GERD, and sternal burning at time of admission. She does endorse continued cough with green sputum production. She denies lower extremity swelling and orthopnea, is not sure if she has gained weight as she has not weighed herself. Denies salt indiscretion. She has been taking her Lasix as directed except for this morning, took all medications other than Lasix this morning. She endorses that she has been wheezing in the last 2 to 3 days, and does not have a history of asthma or COPD. Denies tobacco use. Her daughter had a viral URI last week. Medical History: Reviewed Medications: Reviewed Surgical History: Reviewed Family history: Reviewed Allergies: Reviewed Social History: Reviewed Code Status: Full Allergies Allergy/AdvReac Type Severity Reaction Status Date / Time bee venom protein (honey bee) Allergy Severe Anaphylaxis Verified 12/20/23 09:57 Penicillins Allergy Severe Rash, Verified 12/20/23 09:57 anaphylaxis Sulfa (Sulfonamide Allergy Severe Rash, Verified 12/20/23 09:57 Antibiotics) anaphylaxis Home Medications Medication Instructions Recorded Confirmed Type abaloparatide (Tymlos) 80 mcg subcut QAM 06/19/23 12/27/23 History albuterol sulfate 90 mcg/actuation 1 puff inhalation Q6H PRN 08/25/23 12/27/23 Rx aerosol inhaler Shortness Of Breath #8.5 grams amiodarone 200 mg tablet 200 mg PO QAM #90 tabs 08/25/23 12/27/23 Rx apixaban 5 mg tablet (Eliquis) 5 mg PO BID #180 tabs 08/25/23 12/27/23 Rx atorvastatin 80 mg tablet (Lipitor) 80 mg PO HS #90 tabs 08/25/23 12/27/23 Rx carvedilol 6.25 mg tablet 6.25 mg PO BID #180 tabs 08/25/23 12/27/23 Rx cholecalciferol (vitamin D3) 50 2,000 unit PO QAM #90 tabs 08/25/23 12/27/23 Rx mcg (2,000 unit) tablet clopidogrel 75 mg tablet 75 mg PO DAILY #90 tabs 08/25/23 12/27/23 Rx folic acid 1 mg tablet 1 mg PO DAILY #90 tabs 08/25/23 12/27/23 Rx lancets 31 gauge (Comfort Touch #100 ea 08/25/23 12/20/23 Rx Ultra Thin Lancets) nitroglycerin 0.4 mg sublingual 0.4 mg sublingual UD PRN Chest 08/25/23 12/27/23 Rx tablet (Nitrostat) Pain #25 tabs sacubitril 97 mg-valsartan 103 mg 1 tab PO BID #120 tabs 08/25/23 12/27/23 Rx tablet (Entresto) sertraline 100 mg tablet (Zoloft) 100 mg PO DAILY #90 tabs 08/25/23 12/27/23 Rx spironolactone 25 mg tablet 25 mg PO DAILY #90 tabs 08/25/23 12/27/23 Rx blood sugar diagnostic (OneTouch #100 ea 09/01/23 12/20/23 Rx Verio test strips) furosemide 20 mg tablet 20 mg PO QAM #90 tabs 11/10/23 12/27/23 Rx mecobalamin (vitamin B12) 1,000 1,000 mcg PO DAILY #90 tabs 11/12/23 12/27/23 Rx mcg chewable tablet fexofenadine 180 mg tablet 180 mg PO Q24H #90 tabs 11/24/23 12/27/23 Rx fluticasone propionate 50 1 spray intranasal QAM #48 mL 12/02/23 12/27/23 Rx mcg/actuation nasal spray,suspension polyethylene glycol 3350 17 17 g PO DAILY #119 grams 12/20/23 12/27/23 Rx gram/dose oral powder (Miralax) tramadol 50 mg tablet 50 mg PO BID PRN pain #60 tabs 12/20/23 12/27/23 Rx Past Med/Surg History Medical History CKD (chronic kidney disease) stage 3, GFR 30-59 ml/min Seasonal allergies Cerebral artery occlusion History of CHF (congestive heart failure) Osteoarthritis of right knee GEL SHOT, MOST RECENT INJECTION FEBRUARY 2021 DM2 (diabetes mellitus, type 2) History of colon polyps Nausea and vomiting after administration of anesthetic agent Osteoarthritis Leukemia just monitoring On anticoagulant therapy Hearing deficit Depression Anxiety Spinal stenosis Stroke x3 ?--2010/2011--no neurologist, left arm weakness, uses cane to ambulate Hypertension Hyperlipidemia Atrial fibrillation DX 2018 ? DR KENNEDY - NO HX CARDIOVERSION Myocardial Infarction 2010 & 2019...STENT X 1 Asthma LAST USE LAST WEEK Surgical History Hx of cataract surgery B/L H/O heart artery stent HX [place] , STENT X1 2019 History of phacoemulsification of cataract of both eyes with intraocular lens implantation History of dilatation and curettage x3 History of total left knee replacement (TKR) History of right breast biopsy x3--benign History of laparoscopy History of bilateral breast reduction surgery History of colonoscopy Family History Mother Family history of diabetes mellitus Myocardial infarction Family/Other Family history of diabetes mellitus cousin Aunt Breast cancer Father Myocardial infarction Stroke Other No family history of adverse response to anesthesia Denies family history of Ovarian cancer Prostate cancer Colorectal cancer Uterine cancer Social History Smoking Status: Never smoker Tobacco Type: Cigarettes Age Started Using Tobacco: 53; Age Quit Using Tobacco: 62; Cigarettes Per Day: HX OCCASSIONAL CIGARETTE 15 YRS AGO; Second Hand Exposure: No; Do You Dip or Chew Tobacco: No; Hx Alcohol Use: Yes Alcohol type: wine Alcohol Intake Frequency: 2-4 x/Month Hx Substance Use: No Preferred Language: Australian Communication Ability: Effective Visual Impairment: No Limitations Hearing Ability: Use of Hearing Aid Drophammer Operator Required: No Beliefs That Will Affect Care: Episcopalian Episcopalian Beliefs: SABIANIST marital status: / Current Living Situation: Other Current Living Situation Comment: Lives with daughter, Lita Prater. current occupational status: retired current occupation: worked for [employer] Feels Safe at Home: Yes Childhood Exposure to Second-Hand Smoke: Yes Diet: low salt Diet Comment: low sodium Dental Care, Regularly: Yes Physical Activity Frequency: Does not Exercise Seatbelt Use: always Sunscreen Use: No Assistive Devices: Cane, Walker, Wheelchair and Other Results & Data Results & Data Vital Signs (Past 12 Hours) Vital Signs Temp Pulse Resp BP Pulse Ox O2 Del Method 12/27/23 09:16 56 L 04/15/24 09:01 Room Air 12/27/23 08:57 Room Air 12/27/23 08:55 37.0 C 62 18 150/72 H 99 Room Air PG Care Time/CCT Total # of Minutes Spent Total Time Spent with Patient: Total time spent is greater than 50% in coordination of care (as documented) at patient's floor/unit and/or counseling patient: Coding Level of Care Code 58236 INT INP/OBS CARE 3/75MIN Diagnoses Chronic combined systolic and diastolic CHF (congestive heart failure) I50.42 CKD (chronic kidney disease) stage 3, GFR 30-59 ml/min N18.30 CLL (chronic lymphocytic leukemia) C91.90 Diabetes mellitus, type 2 E11.9 PAF (paroxysmal atrial fibrillation) I48.0 Radicular low back pain M54.10
--- OUTSIDE RECORDS SUMMARY | 2023-12-27 11:01 | External Medical Summary | Continuity of Care Document ---
Author Name Unknown Organization [id number] Address [address] [place] [id number] Care Team Providers Care Batch Trucker Name Role Phone Arlen Frederick Primary Care Physician [phone] Encounter [facility] [id number] Date(s): 12/22/23 - 12/22/23 [facility] [address] [place], [place] [id number] [facility] Medicine [address] [place] [id number] Encounter Diagnosis Callus(Discharge Diagnosis) - 12/22/23 Diabetes(Discharge Diagnosis) - 12/22/23 Hallux valgus of left foot(Discharge Diagnosis) - 12/22/23 Tinea unguium(Discharge Diagnosis) - 12/22/23 Discharge Disposition: Home or Self Care Attending Physician: JOSEPHINE Carlin Christina L Referring Physician: MD Frederick Tania S Allergies, Adverse Reactions, Alerts Substance Reaction Severity Status amlodipine unknown Active pseudoephedrine N&V Active penicillins Swelling Active sulfa drugs unknown Active Bee sting unknown Active Assessment and Plan Extracted from: Title:Follow Up Visit Author:JOSEPHINE Carlin, Brenton Gao Date:12/22/23 1.Callus Area debrided with #15 blade to tolerance, no bleeding or cellulitis noted verbal consent obtained for debridement Recommend moisturizing lotion to feet daily Recommend offloading pads over the area for pressure relief 2.Diabetes 3.Hallux valgus of left foot 4.Tinea unguium -Patient unable to provide self care to toenails due todiabetes - verbal consent obtained for debridement -Recommend toenail debridement -Patient had toenails of bilateral digits 1-5 debrided using nail nippers to tolerance, no bleeding noted -Patient instructed to use emery board to nails once per week -Patient had no ingrown toenails or infection noted -Patient is to follow up in4-5 months for treatment if needed in the future Medications acetaminophen-HYDROcodone 300 mg-5 mg oral tablet Start: 06/23/22 11:04:00 EDT, 1 tab, PO, q8h, Disp# 90 tab, Refills: 0, Hold for sedation, PRN: as needed for pain, Pharmacy: [facility]/pharmacy #[id number] Start Date: 06/23/22 Stop Date: 07/23/22 Status: Ordered amiodarone 200 mg oral tablet TAKE 1 TABLET BY MOUTH EVERY DAY Start Date: 11/25/20 Status: Ordered atorvastatin 80 mg oral tablet Start: 05/19/23 15:00:00 EDT, 1 tab, PO, Daily Start Date: 05/19/23 Status: Ordered carvedilol 6.25 mg oral tablet Start: 11/25/20 11:15:00 EDT, 1 tab, PO, bid Start Date: 11/25/20 Status: Ordered citalopram 20 mg oral tablet Start: 11/25/20 11:15:00 EDT, 1 tab, PO, Daily Start Date: 11/25/20 Status: Ordered clopidogrel 75 mg oral tablet TAKE 1 TABLET BY MOUTH EVERY DAY Start Date: 11/25/20 Status: Ordered [facility] VIT B-12 TR 1,000 MCG TAB TAKE 1 TABLET BY MOUTH EVERY DAY Start Date: 11/25/20 Status: Ordered Eliquis 5 mg oral tablet TAKE 1 TABLET BY MOUTH TWICE A DAY Start Date: 11/25/20 Status: Ordered Entresto 97 mg-103 mg oral tablet Start: 11/25/20 11:14:00 EDT, 1 tab, PO, bid Start Date: 11/25/20 Status: Ordered Euflexxa 10 mg/mL intra-articular solution Start: 05/27/22 16:02:00 EDT, 20 mg =, intra-articular, q7days, Disp# 6 mL, Refills: 0, R knee DJD M17.11 Please ship to physician's office: Kim Garza. [address] [place] [address], Note to Pharmacy: 3 syringes for R knee, Pharmacy: [facility]... Start Date: 05/27/22 Stop Date: 06/17/22 Status: Ordered ferrous sulfate 325 mg (65 mg elemental iron) oral tablet TAKE 1 TABLET BY MOUTH EVERY OTHER DAY Start Date: 11/25/20 Status: Ordered folic acid 1 mg oral tablet TAKE 1 TABLET BY MOUTH EVERY DAY Start Date: 11/25/20 Status: Ordered Monovisc 88 mg/4 mL intra-articular solution Start: 12/23/20 14:25:00 EDT, 88 mg =, intra-articular, ONCE, Disp# 4 mL, Right knee Start Date: 12/23/20 Status: Ordered pantoprazole 40 mg oral delayed release tablet TAKE 1 TABLET BY MOUTH EVERY DAY Start Date: 11/25/20 Status: Ordered sertraline 100 mg oral tablet Start: 11/20/22 13:56:00 EST Start Date: 11/20/22 Status: Ordered spironolactone 25 mg oral tablet Start: 11/25/20 11:14:00 EDT, 1 tab, PO, Daily Start Date: 11/25/20 Status: Ordered Tymlos Pen 3120 mcg/1.56 mL SQ solution Start: 08/21/22 15:43:00 EST, See Instructions, mL, INJECT 80 MCG UNDER THE SKIN EVERY DAY. PEN GOOD FOR 30 DAYS. Start Date: 08/21/22 Status: Ordered Mental Status 12/22/23 Barriers to Learning one year None evide nt Mandatory Health Literacy Documentation Yes Health Literacy Communication Barriers N ever Primary Language Romansh Problem List Condition Confirmation Course Effective Dates Status H ealth Status Informant Arthritis Confirmed Active Atrial fibrillation Confirmed Active Benign neoplasm of skin Confirmed Active Bursitis Confirmed Active Olecranon bursitis of right elbow Confirmed Active Callus Confirmed Active Chronic leukemia Confirmed Active Diabetes Confirmed Active Ex-smoker Confirmed Active Gout Confirmed Active H/O: CVA Confirmed Active Hallux valgus of left foot Confirmed Active Hallux valgus Confirmed Active History of - myocardial infarction Confirmed Active Inflamed seborrheic keratosis Confirmed Active Intertrigo Confirmed Active Right knee pain Confirmed Active Androgenetic alopecia Confirmed Active Milia Confirmed Active Tinea unguium Confirmed Active Right knee DJD Confirmed Active Peripheral vascular disease Confirmed Active Physical deconditioning Confirmed Active Seborrhea Confirmed Active Keratosis, seborrheic Confirmed Active Lumbar spinal stenosis Confirmed Active Foot ulcer, left Confirmed Active Diagnosis Diagnosis Type Effective Dates Health Status Cl inical Service Informant Callus Discharge Diagnosis 12/22/23 Diabetes Discharge Diagnosis 12/22/23 Hallux valgus of left foot Discharge Diagnosis 12/22/23 Tinea unguium Discharge Diagnosis 12/22/23 Procedures Procedure Date Related Diagnosis Body Site Status Colonoscopy 1, 2 05/11/19 Complete d Upper GI endoscopy 3 05/11/19 Comp leted Breast biopsy sample 2011 Comp leted Upper GI endoscopy 05/13/10 Comple luz maria Colonoscopy 10/10/09 Completed Arthroscopy of knee--left 07/18/08 Completed Breast reduction, bilateral 1980 Completed Cataract surgery Complete d Procedure--multiple lumbar s pine surgeries Completed 1Pathology: Colon, Ascending, polypectomy: Tubular adenoma 2Repeat in 5 years. 3Z-line regular, 38 cm from the incisors. Non-obstructing Schatzki ring. Normal stomach. Normal examined duodenum. No specimens collected. Social History Social History Type Response Smoking Status Never smoked cigaret jessica Sex Female Ortho Outpt Note * JOSEPHINE Carlin, Jacki Gao: PERFORM Event Display: Ortho Outpt Note Authored Date: [id number] Chief Complaint nail care Primary Care Provider MD Otoniel, Arlen Singh Subjective Patient is a very pleasant 78-year-old female presenting today for carelast seen August 20, 2023,moderate risk diabetic history of previous ulcersecondary to hallux valgus deformity which has remained healed -All ulcers remain healed patient is stablehas bilateralcallus present third toe Review of Systems High blood pressure heart disease heart attack stroke diabetes canceratrial fibrillation chronic leukemiahistory of a CVA history of myocardial infarct Objective Physical Exam Problem focusedbilateral feet: Dorsalis pedis pulse isnot readily palpablehistory ofstrokevaricosities present posterior tibial pulse nonpalpablepedal hair is noted to be absent skin turgor is good to distal extremitiescapillary refill time is less than 3 secondsABI showed normal circulation Gross sensation intact all digits of both feet. Hallux valgus deformity left foot history of an ulcer at the medial aspect of the first metatarsal head that has remained healed no callus tissueno open wound to measure. History of gout,stable DEIDRA previously and show normal circulation X-rays 3 views left foot: Taken at April 01, 2021 visit MRI reviewed today and shows no osteomyelitis Toenails of digits 1 through 5 of bilateral feet with elongation, thickening greater than 1 mm, dystrophy, subungual bleeding, pain recommend treatment Callus present right foot third toe recommend debridement Callus presentleft foot third toe recommend debridement Assessment/Plan 1.Callus Area debrided with #15 blade to tolerance, no bleeding or cellulitis noted verbal consent obtained for debridement Recommend moisturizing lotion to feet daily Recommend offloading pads over the area for pressure relief 2.Diabetes 3.Hallux valgus of left foot 4.Tinea unguium -Patient unable to provide self care to toenails due todiabetes - verbal consent obtained for debridement -Recommend toenail debridement -Patient had toenails of bilateral digits 1-5 debrided using nail nippers to tolerance, no bleedingnoted -Patient instructed to use emery board to nails once per week -Patient had no ingrown toenails or infection noted -Patient is to follow up in4-5 months for treatment if needed in the future Electronic Signature on File Electronically Reviewed/Signed by: Jacki Carlin DPM Author Signature Dt/Tm:12/22/2023 02:46 PM Division of Sports Medicine CLR Patient Care team information Care Team Personnel Name: JOSEPHINE Carlin, Jacki Gao Position: Physician - Podiatry Member Role: Lifetime Relationship Address: Address: [address] [place] [id number] [place] Name: MD Otoniel, Arlen Singh Position: Referring Member Role: Primary Care Provider Address: Address: [address] [place] [address] Care Team Related Persons Name: LATRICE KIAH Address: home [address] [place], [place] [id number] Name: LEVI VERDUZCO
[2023-12-27] MEDS ORDERED: GLUCAGON FOR INJ 1 MG VIAL SQ PRN (11:04)
[2023-12-27] MEDS ORDERED: GLUCOSE 10 TAB/TUBE PO PRN (11:04)
[2023-12-27] MEDS ORDERED: DEXTROSE 50% 50 ML SYRINGE IV PRN (11:04)
[2023-12-27] MEDS ORDERED: GLUCOSE 40% GEL 15 GM TUBE PO PRN (11:04)
[2023-12-27] MEDS ORDERED: CARBOHYDRATES FOR HYPOGLYCEMIA PO PRN (11:04)
[2023-12-27 11:46] LABS: Adenovirus PCR Not Detected (NotDetected); Bordetella parapertussis PCR Not Detected (NotDetected); Bordetella pertussis PCR Not Detected (NotDetected); Chlamydia pneumoniae PCR Not Detected (NotDetected); Coronavirus 229E PCR Not Detected (NotDetected); Coronavirus CoV-2 (COVID19)PCR Not Detected (NotDetected); Coronavirus HKU1 PCR Not Detected (NotDetected); Coronavirus NL63 PCR Not Detected (NotDetected); Coronavirus OC43PCR Not Detected (NotDetected); Human Metapneumovirus PCR Not Detected (NotDetected); Influenza A PCR Not Detected (NotDetected); Influenza B PCR Not Detected (NotDetected); Mycoplasma pneumoniae PCR Not Detected (NotDetected); Parainfluenza Virus 1 PCR Not Detected (NotDetected); Parainfluenza Virus 2 PCR Not Detected (NotDetected); Parainfluenza Virus 3 PCR DETECTED (NotDetected); Parainfluenza Virus 4 PCR Not Detected (NotDetected); Respiratory Syncytial VirusPCR Not Detected (NotDetected); Rhinovirus/Enterovirus PCR Not Detected (NotDetected)
[2023-12-27] MEDS: INSULIN ASPART PER UNIT CHARGE SC SCH (14:49)
[2023-12-27] MEDS ORDERED: ALBUTEROL HFA 8 GM INHALER INH PRN (15:14)
[2023-12-27] MEDS ORDERED: NITROGLYCERIN SL 0.4 MG/TAB TAB SL PRN (15:14)
[2023-12-27 15:22] LABS: Appearance Urine Clear (Clear); Bilirubin Urine Negative (Negative); Blood Urine Negative (Negative); Color Urine Yellow; Glucose Urine UA Negative (Negative); Ketones Urine Negative (Negative); Leukocyte Esterase Urine Negative (Negative); Nitrite Urine Negative (Negative); Protein Urine Negative (Negative); Specific Gravity Urine 1.008 (1.000-1.030); Urobilinogen Urine Negative (Negative)
[2023-12-27] MEDS: traMADol HCL 50 MG TABLET PO PRN (16:19)
[2023-12-27] MEDS: carvediloL 6.25 MG TAB PO SCH (16:23)
[2023-12-27] MEDS: FEXOFENADINE HCL 180 MG TAB PO SCH (16:23)
[2023-12-27] MEDS: LANTUS PER UNIT CHARGE SQ SCH (20:21)
[2023-12-27] MEDS: ATORVASTATIN 40 MG TAB PO SCH (20:23)
[2023-12-27] MEDS: APIXABAN 5 MG TABLET PO SCH (20:23)
[2023-12-27] MEDS: ACETAMINOPHEN 325 MG TAB PO PRN (20:23)
[2023-12-27] MEDS: VALSARTAN/SACUBITRIL 103/97MG TAB PO SCH (20:23)
[2023-12-28 07:58] LABS: Hematocrit (blood only) 33.2 % (37.0-47.0); Hemoglobin 10.4 g/dl (12.0-16.0); Mean Corpuscular Hemoglobin 31.7 pg (25.0-34.0); Mean Corpuscular Hgb Conc 31.3 g/dL (32.0-36.0); Mean Corpuscular Volume 101.2 fL (80.0-100.0); Mean Platelet Volume 10.2 fL (9.4-12.4); Platelet Count 195 K/uL (130-400); RDW Coefficient of Variation 14.2 % (11.5-14.5); Red Blood Count 3.28 M/uL (4.20-5.40); White Blood Count 26.63 K/ul (4.8-10.8)
[2023-12-28] MEDS: CHOLECALCIFEROL 25 MCG (1000 UNITS) TAB PO SCH (08:15)
[2023-12-28] MEDS: FOLIC ACID 1 MG TAB PO SCH (08:15)
[2023-12-28] MEDS: AMIODARONE 200 MG TAB PO SCH (08:15)
[2023-12-28] MEDS: CLOPIDOGREL BISULFATE 75 MG TAB PO SCH (08:15)
[2023-12-28] MEDS: SERTRALINE HCL 100 MG TABLET PO SCH (08:15)
[2023-12-28] MEDS: SPIRONOLACTONE 25 MG TAB PO SCH (08:15)
[2023-12-28 08:16] LABS: BUN Creatinine Ratio 19.9 (10-20); Calcium 8.9 mg/dl (8.6-10.3); Creatinine Clr Calc Pharmacy 29.9 ml/min; Est GFR (African American) 31.1 ml/min; Est GFR (Non-African American) 26.8 ml/min; Potassium 4.6 mmol/L (3.5-5.1)
[2023-12-28] MEDS: CYANOCOBALAMIN (B-12) 500 MCG TABLET PO SCH (08:16)
[2023-12-28] MEDS: FUROSEMIDE 40 MG/4 ML VIAL IV SCH (08:16)
[2023-12-28] MEDS: POLYETHYLENE (MIRALAX) 17 GM PACK PO SCH (08:16)
[2023-12-28 09:23] LABS: Basophils # (auto) 0.08 K/uL (0.00-0.20); Basophils % (auto) 0.3 %; Eosinophils % (auto) 1.5 %; Immature Granulocytes # (auto) 0.12 K/uL (0.01-0.20); Immature Granulocytes % (auto) 0.5 %; Lymphocytes # (auto) 16.01 K/uL (1.20-3.40); Lymphocytes % (auto) 60.1 %; Monocytes # (auto) 1.26 K/uL (0.11-0.59); Monocytes % (auto) 4.7 %; Neutrophils # (auto) 8.76 K/uL (1.40-6.50); Neutrophils % (auto) 32.9 %; Polychromasia 1+; Smudge Cells Present
[2023-12-28] MEDS: CIPROFLOXACIN / D5W 400 MG/200 ML BAG IV SCH (12:51)
--- NOTE | 2023-12-28 13:45 | Electrocardiogram Report ---
Test Reason : Blood Pressure : / mmHG Vent. Rate : 060 BPM Atrial Rate : 060 BPM P-R Int : 200 ms QRS Dur : 100 ms QT Int : 486 ms P-R-T Axes : 053 030 089 degrees QTc Int : 486 ms Normal sinus rhythm Possible Inferior infarct , age undetermined Abnormal ECG When compared with ECG of 27-DEC-2023 08:54, Criteria for Anterior infarct are no longer Present Borderline criteria for Inferior infarct are now Present Nonspecific T wave abnormality no longer evident in Inferior leads QT has lengthened Confirmed by Edgardo Sanders ([id number]) on 12/28/2023 1:45:40 PM Referred By: REFERRED SELF Confirmed By:Michael Sanders
--- NOTE | 2023-12-28 14:32 | Hospitalist Progress Note ---
Date of Service December 28, 2023 Assessment & Plan (1) Acute bronchitis: Plan: Sputum culture requested. Ciprofloxacin started. (2) Chronic combined systolic and diastolic CHF (congestive heart failure): Plan: Stable. No current evidence of CHF on clinical exam or chest x-ray. Monitor intake and output. Most recent cardiac echo reveals ejection fraction of 45 to 50%. (3) CKD (chronic kidney disease) stage 3, GFR 30-59 ml/min: Plan: Monitor intake and output. Serial labs. Stable (4) CLL (chronic lymphocytic leukemia): Plan: This accounts for her chronic leukocytosis. Serial labs. No intervention necessary at this time. (5) Diabetes mellitus, type 2: Plan: ADA diet. Sliding scale coverage. Basal insulin for now (6) PAF (paroxysmal atrial fibrillation): Plan: Stable. Currently in normal sinus rhythm. Continue amiodarone, carvedilol, Eliquis (7) Radicular low back pain: Plan: Chronic. Pain control measures. Supportive care. Plan Hopeful discharge tomorrow, December 28, on oral antibiotic Admission and Anticipated Discharge Date Admission Date: December 27, 2023 Subjective Alert and oriented. No distress. Chest x-ray is negative for CHF or pneumonia. She does have a productive cough and I suspect she has some acute bronchitis. She is on room air. Sputum culture has been requested and intravenous Cipro started, day 1. I spoke to her daughter Lita by phone. Hopefully she can go home tomorrow, December 28, on oral ciprofloxacin. Repeat EKG is negative for any acute changes and troponin is mildly elevated but not trending. Creatinine 1.7 with baseline 2.0. White blood cell count is elevated chronically due to CLL. Review of Systems 2 Review of Systems: Constitutional-no fever or chills ENT-no blurred vision, no double vision, no epistaxis, no sore throat Respiratory-productive cough. Shortness of breath. No wheezing. No hemoptysis Cardiac-no palpitations, no chest pain, no syncope GI-no nausea, vomiting, diarrhea, melena, hematochezia -no urinary retention, no urinary incontinence, no dysuria, no hematuria Musculoskeletal-no joint pain, no muscle tenderness Skin-no bruising, no rashes, no pruritus Neuro-no isolated weakness, no paresthesia, no weakness Psych-no depression, no anxiety Physical Exam 2 Physical Exam: General-alert and oriented x3, no fevers, no chills HEENT-head atraumatic and normocephalic, pupils equal and reactive to light, extraocular muscles intact Neck-no lymphadenopathy or thyromegaly, trachea midline Chest-midline rhonchi audible with forced coughing. No inspiratory rales. No wheezing. No dullness to percussion. Cardiac-regular rate and rhythm, normal S1 and S2 Abdomen-normal bowel sounds, nontender, no hepatosplenomegaly Extremities-no cyanosis, clubbing, or edema Neuro-cranial nerves II through XII intact, motor and sensory function within normal limits, strength symmetrical, no focal deficits Psych-normal affect, normal mood Results & Data Results & Data Vital Signs (Past 12 Hours) Vital Signs Temp Pulse Pulse Resp BP Pulse Ox O2 Del Method 12/28/23 10:39 59 L 12/28/23 08:06 Room Air 12/28/23 07:55 36.5 C 62 18 152/83 H 93 Room Air 12/28/23 03:56 36.6 C 62 18 152/89 H 92 Room Air Laboratory Results 12/28/23 06:53 12/28/23 06:53 PG Care Time/CCT Total # of Minutes Spent Total Time Spent with Patient: Total time spent is greater than 50% in coordination of care (as documented) at patient's floor/unit and/or counseling patient: Coding Level of Care Code 82542 SUB INP/OBS CARE 3/50MIN Diagnoses Acute bronchitis J20.9 Chronic combined systolic and diastolic CHF (congestive heart failure) I50.42 CKD (chronic kidney disease) stage 3, GFR 30-59 ml/min N18.30 CLL (chronic lymphocytic leukemia) C91.90 Diabetes mellitus, type 2 E11.9 PAF (paroxysmal atrial fibrillation) I48.0 Radicular low back pain M54.10
[2023-12-29 06:37] LABS: Hemoglobin 10.9 g/dl (12.0-16.0); Mean Corpuscular Hemoglobin 32.5 pg (25.0-34.0); Mean Corpuscular Volume 98.5 fL (80.0-100.0); Mean Platelet Volume 10.1 fL (9.4-12.4); Platelet Count 207 K/uL (130-400); RDW Coefficient of Variation 14.1 % (11.5-14.5); RDW Standard Deviation 50.4 fL (36.4-46.3); Red Blood Count 3.35 M/uL (4.20-5.40)
[2023-12-29 06:43] LABS: Potassium 4.4 mmol/L (3.5-5.1)
[2023-12-29 06:49] LABS: Creatinine Clr Calc Pharmacy 24.5 ml/min; Est GFR (African American) 25.9 ml/min; Est GFR (Non-African American) 22.3 ml/min
[2023-12-29 07:58] LABS: Basophils # (auto) 0.09 K/uL (0.00-0.20); Basophils % (auto) 0.3 %; Eosinophils # (auto) 0.45 K/uL (0.00-0.50); Eosinophils % (auto) 1.6 %; Immature Granulocytes # (auto) 0.09 K/uL (0.01-0.20); Immature Granulocytes % (auto) 0.3 %; Lymphocytes # (auto) 18.13 K/uL (1.20-3.40); Lymphocytes % (auto) 66.4 %; Monocytes # (auto) 1.37 K/uL (0.11-0.59); Neutrophils # (auto) 7.17 K/uL (1.40-6.50); Neutrophils % (auto) 26.4 %; Polychromasia 1+; Smudge Cells Present
--- NOTE | 2023-12-29 10:41 | Discharge Summary ---
Date of Service December 29, 2023 Admission HPI Per Admitting Provider Kaylie is an 78-year-old female with past medical history of ischemic CHF with systolic and diastolic heart failure, type II DM, GERD, hypertension, depression, CKD 3, A-fib on apixaban and amiodarone recently discharged 12/13/23- 12/16/23 after an admission for radicular back pain improved on IV steroids and discharged to home on a prednisone taper who presents with shortness of breath. Patient was seen with her daughter at bedside. She reports that she actually was doing well after getting out of the hospital and her back pain improved and remains adequately controlled. Unfortunately she has become progressively short of breath over the last few days. She was last normal on , approximately 5 days ago. 4 days ago she had an increased cough and green sputum production. She had progressive shortness of breath over the next 2 days and had a brief episode of chest pain in the center of her chest which resolved with 1 dose of nitro and has had no chest pain since. She notes she has a history of GERD and bad reflux and takes a significant number of Tums which usually help, did not help on Wednesday but the nitro did. She does feel her reflux-like symptoms have been worse and is not sure if these are associated with dyspnea. She denies shortness of breath, chest pain, chest pressure, GERD, and sternal burning at time of admission. She does endorse continued cough with green sputum production. She denies lower extremity swelling and orthopnea, is not sure if she has gained weight as she has not weighed herself. Denies salt indiscretion. She has been taking her Lasix as directed except for this morning, took all medications other than Lasix this morning. She endorses that she has been wheezing in the last 2 to 3 days, and does not have a history of asthma or COPD. Denies tobacco use. Her daughter had a viral URI last week. Medical History: Reviewed Medications: Reviewed Surgical History: Reviewed Family history: Reviewed Allergies: Reviewed Social History: Reviewed Code Status: Full Principal Diagnosis Acute bronchitis with shortness of breath, elevated troponin without acute coronary syndrome Discharge Exam General-alert and oriented x3, no fevers, no chills HEENT-head atraumatic and normocephalic, pupils equal and reactive to light, extraocular muscles intact Neck-no lymphadenopathy or thyromegaly, trachea midline Chest-midline rhonchi audible with forced coughing. No inspiratory rales. No wheezing. No dullness to percussion. Cardiac-regular rate and rhythm, normal S1 and S2 Abdomen-normal bowel sounds, nontender, no hepatosplenomegaly Extremities-no cyanosis, clubbing, or edema Neuro-cranial nerves II through XII intact, motor and sensory function within normal limits, strength symmetrical, no focal deficits Psych-normal affect, normal mood Discharge Data Allergies Allergy/AdvReac Type Severity Reaction Status Date / Time bee venom protein (honey bee) Allergy Severe Anaphylaxis Verified 12/20/23 09:57 Penicillins Allergy Severe Rash, Verified 12/20/23 09:57 anaphylaxis Sulfa (Sulfonamide Allergy Severe Rash, Verified 12/20/23 09:57 Antibiotics) anaphylaxis Consultations 12/27/23 10:27 ED Decision to Admit Stat Hospital Course (1) Acute bronchitis: Sputum culture nondiagnostic. Cipro day 2. She will be discharged home on a short course of oral ciprofloxacin. Will also discharge on a short course of prednisone taper (2) Chronic combined systolic and diastolic CHF (congestive heart failure): Stable. No current evidence of CHF on clinical exam or chest x-ray. Monitor intake and output. Most recent cardiac echo reveals ejection fraction of 45 to 50%. (3) CKD (chronic kidney disease) stage 3, GFR 30-59 ml/min: Monitor intake and output. Serial labs. Stable (4) CLL (chronic lymphocytic leukemia): This accounts for her chronic leukocytosis. Serial labs. No intervention necessary at this time. (5) Diabetes mellitus, type 2: ADA diet. Sliding scale coverage. Basal insulin for now (6) PAF (paroxysmal atrial fibrillation): Stable. Currently in normal sinus rhythm. Continue amiodarone, carvedilol, Eliquis (7) Radicular low back pain: Chronic. Pain control measures. Supportive care. Plan Home today, December 28, on ciprofloxacin and a prednisone tapering dose Total Time Total Time Spent Total Time Spent (In Minutes): 45-minute Discharge Plan Discharge Items Patient Disposition: Home - Self-Care Reason For Visit: DYSPNEA Discharge Diagnosis: Acute bronchitis with shortness of breath, elevated troponin without acute coronary syndrome Activity: Resume your previous activity Non-emergency contact: Primary Care Provider Call non-emergency contact if: you have any medication questions and your symptoms worsen Follow-up/Referrals: Arlen Frederick MD [Primary Care Provider] - Diet: Regular and Heart Healthy Addtl Attending Provider Instructions: Take Cipro antibiotic for 5 more days. Take prednisone in a tapering dose fashion as directed Pending Studies at Discharge: No Stand-Alone Forms: My [facility], Smoking Cessation Medications and DC Order Prescriptions: New ciprofloxacin HCl [Cipro] 500 mg tablet 500 mg PO BID Qty: 10 0RF prednisone 10 mg tablet See Rx Instructions .ROUTE .COMPLEX Qty: 12 0RF Rx Instructions: 10 mg orally 3 times a day for 2 days, then 10 mg twice a day for 2 days, then 10 mg once a day for 2 days, then stop Continued Eliquis 5 mg tablet 5 mg PO BID Qty: 180 1RF Rx Instructions: TAKE 1 TABLET BY MOUTH TWICE A DAY Entresto 97-103 mg tablet 1 tab PO BID Qty: 120 3RF albuterol sulfate 90 mcg/actuation HFA aerosol inhaler 1 puff inhalation Q6H PRN (Reason: Shortness Of Breath) Qty: 8.5 1RF Rx Instructions: INHALE 1 PUFF BY MOUTH EVERY 6 HOURS NEEDED FOR SHORTNESS OF BREATH amiodarone 200 mg tablet 200 mg PO QAM Qty: 90 1RF atorvastatin [Lipitor] 80 mg tablet 80 mg PO HS Qty: 90 3RF carvedilol 6.25 mg tablet 6.25 mg PO BID Qty: 180 3RF cholecalciferol (vitamin D3) 50 mcg (2,000 unit) tablet 2,000 unit PO QAM Qty: 90 0RF clopidogrel 75 mg tablet 75 mg PO DAILY Qty: 90 3RF folic acid 1 mg tablet 1 mg PO DAILY Qty: 90 0RF (DME) Comfort Touch Ult Thin Lancets 31 gauge misc See Rx Instructions .Route Qty: 100 3RF Rx Instructions: pt tests every other day nitroglycerin [Nitrostat] 0.4 mg tablet, sublingual 0.4 mg sublingual UD PRN (Reason: Chest Pain) Qty: 25 1RF sertraline [Zoloft] 100 mg tablet 100 mg PO DAILY Qty: 90 1RF spironolactone 25 mg tablet 25 mg PO DAILY Qty: 90 0RF Rx Instructions: TAKE 1 TABLET BY MOUTH EVERY DAY (DME) OneTouch Verio test strips Strip See Rx Instructions .ROUTE .MEDSUPPLY Qty: 100 1RF Rx Instructions: check once daily Dx code: E11.9 furosemide 20 mg tablet 20 mg PO QAM Qty: 90 3RF Rx Instructions: Can take and additional 20mg tablet as needed for weight gain, swelling or edema. fexofenadine 180 mg tablet 180 mg PO Q24H Qty: 90 3RF fluticasone propionate 50 mcg/actuation spray,suspension 1 spray intranasal QAM Qty: 48 1RF mecobalamin (vitamin B12) 1,000 mcg tablet,chewable 1,000 mcg PO DAILY Qty: 90 1RF tramadol 50 mg tablet 50 mg PO BID PRN (Reason: pain) Qty: 60 0RF polyethylene glycol 3350 [Miralax] 17 gram/dose powder 17 g PO DAILY Qty: 119 5RF Tymlos 80 mcg (3,120 mcg/1.56 mL) pen injector 80 mcg SUBCUT QAM Patient Comments: Daughter wants to know if she needs to bring the medication in Discharge Orders: Discharge Order (Routine); Ordered 12/29/23 Ordered By: Emeterio Dacosta Admission Data Admit Date/Time: 12/27/23 11:00 Attending Provider: Emeterio Dacosta Admit Provider: Aaron Santillan Primary Care Provider: Arlen Frederick Other Providers: Aaron Santillan Coding Level of Care Code 09729 INP/OBS DISCH >30 MIN Diagnoses Acute bronchitis J20.9 Chronic combined systolic and diastolic CHF (congestive heart failure) I50.42 CKD (chronic kidney disease) stage 3, GFR 30-59 ml/min N18.30 CLL (chronic lymphocytic leukemia) C91.90 Diabetes mellitus, type 2 E11.9 PAF (paroxysmal atrial fibrillation) I48.0 Radicular low back pain M54.10
== END 2023-12-29 11:30 | disposition home health service (06) ==
LOC: ED 08:49 → EDINP 08:49 → SUATTDRO 11:00 → 2W 14:39

== ENCOUNTER 2024-05-02 10:04 | Inpatient (IN) ==
--- NOTE | 2024-05-02 10:39 | Emergency Department Note ---
History of Present Illness General Chief complaint: Illness Stated complaint: ILLNESS Time Seen by Provider: 05/02/24 10:25 Source: patient, family (Daughter who is at the bedside), RN notes reviewed, old records reviewed (04/21/2024-discharge summary for CHF) and other (Caregiver who is at the bedside) Mode of arrival: ambulatory Limitations: no limitations History of Present Illness Maximum Pain Intensity: 3 This patient 78-year-old female who comes in after not feeling well for several days to week. She is tells me this is her fifth visit this year she does have history of CHF. She has been feeling weak over about the last week although on Wednesday into Wednesday she had nausea she had diarrhea yesterday without blood or melena she felt a little dizzy. She has had a chronic cough for 3-1/2 years has been unchanged. CHF her weights been stable and she does have chronic CLL as well and had labs done 2 days ago. Denies any fall or trauma recently show most fell today because she was weak she has had no focal numbness or weakness .no abdominal pain at present or any shortness of breath. Home Medications Medication Instructions Recorded Confirmed Type abaloparatide (Tymlos) 80 mcg subcut QAM 06/19/23 05/02/24 History apixaban 5 mg tablet (Eliquis) 5 mg PO BID #180 tabs 08/25/23 05/02/24 Rx atorvastatin 80 mg tablet (Lipitor) 80 mg PO HS #90 tabs 08/25/23 05/02/24 Rx clopidogrel 75 mg tablet 75 mg PO DAILY #90 tabs 08/25/23 05/02/24 Rx folic acid 1 mg tablet 1 mg PO DAILY #90 tabs 08/25/23 05/02/24 Rx lancets 31 gauge (Comfort Touch #100 ea 08/25/23 04/27/24 Rx Ultra Thin Lancets) nitroglycerin 0.4 mg sublingual 0.4 mg sublingual UD PRN Chest 08/25/23 05/02/24 Rx tablet (Nitrostat) Pain #25 tabs sacubitril 97 mg-valsartan 103 mg 1 tab PO BID #120 tabs 08/25/23 05/02/24 Rx tablet (Entresto) sertraline 100 mg tablet (Zoloft) 100 mg PO DAILY #90 tabs 08/25/23 05/02/24 Rx blood sugar diagnostic (OneTouch #100 ea 09/01/23 04/27/24 Rx Verio test strips) furosemide 20 mg tablet 20 mg PO QAM #90 tabs 11/10/23 05/02/24 Rx fexofenadine 180 mg tablet 180 mg PO Q24H #90 tabs 11/24/23 05/02/24 Rx fluticasone propionate 50 1 spray intranasal QAM #48 mL 12/02/23 05/02/24 Rx mcg/actuation nasal spray,suspension polyethylene glycol 3350 17 17 g PO DAILY #119 grams 12/20/23 05/02/24 Rx gram/dose oral powder (Miralax) pantoprazole 40 mg tablet,delayed 40 mg PO DAILY #90 tabs 01/18/24 05/02/24 Rx release amiodarone 200 mg tablet 200 mg PO QAM #90 tabs 03/07/24 05/02/24 Rx spironolactone 25 mg tablet 25 mg PO DAILY #90 tabs 03/07/24 05/02/24 Rx mecobalamin (vitamin B12) 1,000 1,000 mcg sublingual DAILY #90 tabs 03/10/24 05/02/24 Rx mcg disintegrating tablet,sublingual albuterol sulfate 90 mcg/actuation 1 puff inhalation Q6H PRN 03/21/24 05/02/24 Rx aerosol inhaler Shortness Of Breath #8.5 grams cholecalciferol (vitamin D3) 50 2,000 unit PO QAM #90 tabs 03/27/24 05/02/24 Rx mcg (2,000 unit) tablet triamcinolone acetonide 0.5 % 1 applic topical BID #15 grams 04/21/24 05/02/24 Rx topical ointment carvedilol 6.25 mg tablet 3.125 mg (1/2 x 6.25 mg) PO BID 04/27/24 05/02/24 Rx #180 tabs prednisone 10 mg tablet 10 mg PO UD 05/02/24 05/02/24 History Allergies Allergy/AdvReac Type Severity Reaction Status Date / Time bee venom protein (honey bee) Allergy Severe Anaphylaxis Verified 04/27/24 15:19 Penicillins Allergy Severe Rash, Verified 04/27/24 15:19 anaphylaxis Sulfa (Sulfonamide Allergy Severe Rash, Verified 04/27/24 15:19 Antibiotics) anaphylaxis Past Med/Surg History Problem List (Updated 05/02/24 @ 15:00 by Jarod Han MD) Nausea (Acute) Diarrhea (Acute) Chronic kidney insufficiency (Acute) CHF (congestive heart failure) (Acute) Weakness (Acute) Cough PND (post-nasal drip) DNS (deviated nasal septum) Otalgia of both ears Acute bronchitis Toxic encephalopathy Radicular low back pain Spinal stenosis Pulmonary edema (Acute) Anxiety Chronic cough Physician orders for life-sustaining treatment (POLST) form indicates patient wish for full code resuscitation status CKD (chronic kidney disease) stage 3, GFR 30-59 ml/min Compression fracture GERD (gastroesophageal reflux disease) (Chronic) Dyslipidemia (Chronic) CAD (coronary artery disease) Chronic combined systolic and diastolic CHF (congestive heart failure) Left ventricular dysfunction Medical History 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 halfway 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 CLL (chronic lymphocytic leukemia) Ischemic cardiomyopathy PAF (paroxysmal atrial fibrillation) Diabetes mellitus, type 2 Depression Hypertension Seasonal allergies Cerebral artery occlusion History of CHF (congestive heart failure) Osteoarthritis of right knee GEL SHOT, MOST RECENT INJECTION FEBRUARY 2021 DM2 (diabetes mellitus, type 2) History of colon polyps Nausea and vomiting after administration of anesthetic agent Osteoarthritis Leukemia just monitoring On anticoagulant therapy Hearing deficit Stroke x3 ?--2010/2011--no neurologist, left arm weakness, uses cane to ambulate Hyperlipidemia Atrial fibrillation DX 2018 ? DR KENNEDY - NO HX CARDIOVERSION Myocardial Infarction 2010 & 2019...STENT X 1 Asthma LAST USE LAST WEEK Surgical History Hx of cataract surgery B/L H/O heart artery stent HX [place] , STENT X1 2019 History of phacoemulsification of cataract of both eyes with intraocular lens implantation History of dilatation and curettage x3 History of total left knee replacement (TKR) History of right breast biopsy x3--benign History of laparoscopy History of bilateral breast reduction surgery History of colonoscopy Family History Mother Family history of diabetes mellitus Myocardial infarction Family/Other Family history of diabetes mellitus cousin Aunt Breast cancer Father Myocardial infarction Stroke Other No family history of adverse response to anesthesia Denies family history of Ovarian cancer Prostate cancer Colorectal cancer Uterine cancer Social History Smoking Status: Never smoker Tobacco Type: Cigarettes Age Started Using Tobacco: 53; Age Quit Using Tobacco: 62; Cigarettes Per Day: HX OCCASSIONAL CIGARETTE 15 YRS AGO; Second Hand Exposure: No; Do You Dip or Chew Tobacco: No; Hx Alcohol Use: No Hx Substance Use: No Preferred Language: Vietnamese Communication Ability: Effective Visual Impairment: No Limitations Hearing Ability: Use of Hearing Aid Gang Boss Required: No Beliefs That Will Affect Care: None marital status: / Current Living Situation: Family Current Living Situation Comment: lives with daughter current occupational status: retired current occupation: worked for [employer] Feels Safe at Home: Yes Childhood Exposure to Second-Hand Smoke: Yes Diet: low salt Diet Comment: low sodium Dental Care, Regularly: Yes Physical Activity Frequency: Does not Exercise Seatbelt Use: always Sunscreen Use: No Assistive Devices: Cane, Walker and Wheelchair Review of Systems A total of 10 systems reviewed and were otherwise negative Physical Exam Vital Signs Vital Signs - 24 hr 05/02/24 10:00 05/02/24 10:08 05/02/24 10:08 Temperature 36.5 C Temperature Source Oral Pulse Rate 77 Pulse Rate [Apical] Pulse Rate from SpO2 Sensor Respiratory Rate 24 Respiratory Effort / Characteristics Non-Labored Spontaneous Respiratory Depth Normal Blood Pressure 115/70 115/70 115/70 Blood Pressure [Right Arm] Blood Pressure Mean 85 85 85 Blood Pressure Mean [Right Arm] Blood Pressure Position [Right Arm] Pulse Oximetry 91 Oxygen Delivery Method Room Air Oxygen Flow Rate Sepsis Recent Fever Within 48 Hours No Sepsis New/Unexplained Change in Mental Status No Sepsis Action Taken by Nursing No Action Required 05/02/24 10:12 05/02/24 10:13 05/02/24 10:27 Temperature Temperature Source Pulse Rate 73 72 68 Pulse Rate [Apical] Pulse Rate from SpO2 Sensor 71 68 Respiratory Rate 20 24 Respiratory Effort / Characteristics Respiratory Depth Blood Pressure Blood Pressure [Right Arm] Blood Pressure Mean Blood Pressure Mean [Right Arm] Blood Pressure Position [Right Arm] Pulse Oximetry 92 91 Oxygen Delivery Method Oxygen Flow Rate Sepsis Recent Fever Within 48 Hours Sepsis New/Unexplained Change in Mental Status Sepsis Action Taken by Nursing 05/02/24 10:33 05/02/24 10:42 05/02/24 11:01 Temperature Temperature Source Pulse Rate 70 67 Pulse Rate [Apical] 66 Pulse Rate from SpO2 Sensor 70 67 Respiratory Rate 22 29 H 21 Respiratory Effort / Characteristics Respiratory Depth Blood Pressure Blood Pressure [Right Arm] 115/70 Blood Pressure Mean Blood Pressure Mean [Right Arm] 85 Blood Pressure Position [Right Arm] Semi-fowlers Pulse Oximetry 90 93 93 Oxygen Delivery Method Room Air Oxygen Flow Rate Sepsis Recent Fever Within 48 Hours Sepsis New/Unexplained Change in Mental Status Sepsis Action Taken by Nursing 05/02/24 11:01 05/02/24 11:06 05/02/24 11:18 Temperature Temperature Source Pulse Rate 64 59 L 62 Pulse Rate [Apical] Pulse Rate from SpO2 Sensor 61 62 Respiratory Rate 21 20 29 H Respiratory Effort / Characteristics Respiratory Depth Blood Pressure Blood Pressure [Right Arm] Blood Pressure Mean Blood Pressure Mean [Right Arm] Blood Pressure Position [Right Arm] Pulse Oximetry 93 95 96 Oxygen Delivery Method Room Air Oxygen Flow Rate Sepsis Recent Fever Within 48 Hours Sepsis New/Unexplained Change in Mental Status Sepsis Action Taken by Nursing 05/02/24 11:33 05/02/24 11:51 05/02/24 12:18 Temperature Temperature Source Pulse Rate 58 L 58 L 63 Pulse Rate [Apical] Pulse Rate from SpO2 Sensor 58 L 59 L 63 Respiratory Rate 15 23 20 Respiratory Effort / Characteristics Respiratory Depth Blood Pressure Blood Pressure [Right Arm] Blood Pressure Mean Blood Pressure Mean [Right Arm] Blood Pressure Position [Right Arm] Pulse Oximetry 99 97 98 Oxygen Delivery Method Oxygen Flow Rate Sepsis Recent Fever Within 48 Hours Sepsis New/Unexplained Change in Mental Status Sepsis Action Taken by Nursing 05/02/24 12:42 05/02/24 13:12 05/02/24 13:31 Temperature Temperature Source Pulse Rate 63 67 Pulse Rate [Apical] 78 Pulse Rate from SpO2 Sensor 64 67 Respiratory Rate 17 29 H 20 Respiratory Effort / Characteristics Respiratory Depth Blood Pressure Blood Pressure [Right Arm] 164/129 H Blood Pressure Mean Blood Pressure Mean [Right Arm] 140 Blood Pressure Position [Right Arm] Pulse Oximetry 95 99 94 Oxygen Delivery Method Nasal Cannula Oxygen Flow Rate Sepsis Recent Fever Within 48 Hours Sepsis New/Unexplained Change in Mental Status Sepsis Action Taken by Nursing 05/02/24 14:36 Temperature Temperature Source Pulse Rate Pulse Rate [Apical] 61 Pulse Rate from SpO2 Sensor Respiratory Rate 20 Respiratory Effort / Characteristics Respiratory Depth Blood Pressure Blood Pressure [Right Arm] 141/80 H Blood Pressure Mean Blood Pressure Mean [Right Arm] 100 Blood Pressure Position [Right Arm] Pulse Oximetry 93 Oxygen Delivery Method Nasal Cannula Oxygen Flow Rate 2 Sepsis Recent Fever Within 48 Hours Sepsis New/Unexplained Change in Mental Status Sepsis Action Taken by Nursing General: Well developed well nourished older female who is mildly hard of hearing but answers all questions appropriately and appears in no acute distress, breathing comfortably on room air. Normal speech HEENT: Normal cephalic atraumatic. Pupils are equal round and reactive to light. Extraocular movements are intact. Oropharynx is pink with moist mucous membranes. No swelling of the mouth lips or tongue. There are some mild asymmetry and swelling left upper eyelid above the eye. It is not red or warm Neck: Supple with a midline trachea. No meningeal signs or stiffness, no JVD or bruits. No Stridor. Chest: Clear to auscultation bilaterally. No wheezes or rhonchi. No increased work of breathing. Heart: Regular rate and rhythm without murmurs or gallops. Abdomen: Soft nontender, nondistended without rebound guarding or rigidity. Extremities: No cyanosis clubbing or edema. No calf tenderness or assymetry Spine/Back. Non tender to palpation. No CVA tenderness Skin: Good turgor without rashes. Neurologic exam: Cranial nerves two through 12 are intact. Motor and sensation are intact and symmetrical throughout. No tremor Course Administered Medications Discontinued Medications Furosemide (Furosemide Inj 20 Mg/2 Ml Vial) 20 mg IV ONE ONE Stop: 05/02/24 13:13 Last Admin: 05/02/24 14:36 Dose: 20 mg Documented By: ML Ondansetron HCl (Ondansetron Inj 2 Mg/Ml 2 Ml Vial) 4 mg IV NOW STA Stop: 05/02/24 10:52 Last Admin: 05/02/24 11:04 Dose: 4 mg Documented By: MMF Medical Decision Making Differential Diagnosis Weakness, dehydration, CHF, electrolyte or metabolic abnormality, infection, cardiac disease, pulmonary disease, anemia, complication related to leukemia Medical Records Attestation: I reviewed the patient's medical records. Home Medications Current Medication List: was personally reviewed by me Laboratory Data Attestation: I reviewed the patient's lab results. 05/02/24 10:21 05/02/24 10:21 Lab Results 05/02/24 05/02/2405/02/24 Range/Units 10:21 10:24 12:37 WBC 14.05 H (4.8-10.8) K/ul RBC 3.08 L (4.20-5.40) M/uL Hgb 9.5 L (12.0-16.0) g/dl Hct 30.4 L (37.0-47.0) % MCV 98.7 (80.0-100.0) fL MCH 30.8 (25.0-34.0) pg MCHC 31.3 L (32.0-36.0) g/dL RDW Std Deviation 54.4 H (36.4-46.3) fL RDW Coeff of Nino 15.1 H (11.5-14.5) % Plt Count 248 (130-400) K/uL MPV 9.7 (9.4-12.4) fL Immature Gran % (Auto) 0.5 % Neut % (Auto) 66.4 % Lymph % (Auto) 26.0 % [place] % (Auto) 5.6 % Eos % (Auto) 1.0 % Baso % (Auto) 0.5 % Neut # (Auto) 9.33 H (1.40-6.50) K/uL Lymph # (Auto) 3.65 H (1.20-3.40) K/uL [place] # (Auto) 0.79 H (0.11-0.59) K/uL Eos # (Auto) 0.14 (0.00-0.50) K/uL Baso # (Auto) 0.07 (0.00-0.20) K/uL Immature Gran # (Auto) 0.07 (0.01-0.20) K/uL Sodium 139 (136-145) mmol/L Potassium 4.4 (3.5-5.1) mmol/L Chloride 111 H (98-107) mmol/L Carbon Dioxide 19 L (21-32) mmol/L Anion Gap 9 (3-11) BUN 51 H (6-23) mg/dl Creatinine 1.76 H (0.6-1.2) mg/dl Est Cr Clr Drug Dosing 29.3 ml/min Est GFR ( Amer) 31.1 ml/min Est GFR (Non-Af Amer) 26.8 ml/min BUN/Creatinine Ratio 29.0 H (10-20) Glucose 167 H (70-99(Fasting)) mg/dl POC Glucose (70-99) mg/dl Calcium 9.6 (8.6-10.3) mg/dl Phosphorus (2.5-4.9) mg/dl Magnesium (1.7-2.4) mg/dl Iron (35-150) mcg/dl TIBC (250-450) mcg/dl Unsaturated IBC (155-355) mcg/dl Transferrin % Sat (15-50) % Total Bilirubin 0.7 (0.2-1.0) mg/dl AST 14 (13-39) U/L ALT 18 (7-52) U/L Alkaline Phosphatase 109 H (34-104) U/L Troponin I High Sens 28.2 H (0-14) pg/ml B-Natriuretic Peptide > 4700 H (0-100) pg/ml Total Protein 6.4 (6.0-8.3) gm/dl Albumin 4.1 (3.4-5.0) gm/dl Globulin 2.3 L (2.5-4.0) gm/dl Albumin/Globulin Ratio 1.8 (0.9-2) Procalcitonin (0-0.5) ng/ml TSH 5.937 H (0.300-4.500) uIu/ml Free T4 1.35 (0.61-1.60) ng/dl Urine Color Yellow Urine Appearance Clear (Clear) Urine pH 5.0 (4.5-7.5) Ur Specific [place] 1.012 (1.000-1.030) Urine Protein Negative (Negative) Urine Glucose (UA) Negative (Negative) Urine Ketones Negative (Negative) Urine Blood Negative (Negative) Urine Nitrite Negative (Negative) Urine Bilirubin Negative (Negative) Urine Urobilinogen Negative (Negative) Ur Leukocyte Esterase Negative (Negative) Adenovirus (PCR) Not Detected (NotDetected) B. pertussis DNA (PCR) Not Detected (NotDetected) B.parapertussis DNA PCR Not Detected (NotDetected) C. pneumoniae DNA (PCR) Not Detected (NotDetected) Coronavirus OC43 (PCR) Not Detected (NotDetected) Coronavirus HKU1 (PCR) Not Detected (NotDetected) Coronavirus 229E (PCR) Not Detected (NotDetected) SARS-CoV-2 (PCR) Not Detected (NotDetected) Coronavirus NL63 (PCR) Not Detected (NotDetected) Human Metapneumovir PCR Not Detected (NotDetected) Influenza Type A (PCR) Not Detected (NotDetected) Influenza Type B (PCR) Not Detected (NotDetected) M. pneumoniae (PCR) Not Detected (NotDetected) Parainfluenza 1 (PCR) Not Detected (NotDetected) Parainfluenza 2 (PCR) Not Detected (NotDetected) Parainfluenza 3 (PCR) Not Detected (NotDetected) Parainfluenza 4 (PCR) Not Detected (NotDetected) RSV (PCR) Not Detected (NotDetected) Entero/Rhino (PCR) Not Detected (NotDetected) 05/02/24 05/02/24 05/02/24 Range/Units 12:40 13:20 14:01 WBC (4.8-10.8) K/ul RBC (4.20-5.40) M/uL Hgb (12.0-16.0) g/dl Hct (37.0-47.0) % MCV (80.0-100.0) fL MCH (25.0-34.0) pg MCHC (32.0-36.0) g/dL RDW Std Deviation (36.4-46.3) fL RDW Coeff of Nino (11.5-14.5) % Plt Count (130-400) K/uL MPV (9.4-12.4) fL Immature Gran % (Auto) % Neut % (Auto) % Lymph % (Auto) % [place] % (Auto) % Eos % (Auto) % Baso % (Auto) % Neut # (Auto) (1.40-6.50) K/uL Lymph # (Auto) (1.20-3.40) K/uL [place] # (Auto) (0.11-0.59) K/uL Eos # (Auto) (0.00-0.50) K/uL Baso # (Auto) (0.00-0.20) K/uL Immature Gran # (Auto) (0.01-0.20) K/uL Sodium (136-145) mmol/L Potassium (3.5-5.1) mmol/L Chloride (98-107) mmol/L Carbon Dioxide (21-32) mmol/L Anion Gap (3-11) BUN (6-23) mg/dl Creatinine (0.6-1.2) mg/dl Est Cr Clr Drug Dosing ml/min Est GFR ( Amer) ml/min Est GFR (Non-Af Amer) ml/min BUN/Creatinine Ratio (10-20) Glucose (70-99(Fasting)) mg/dl POC Glucose 142 H (70-99) mg/dl Calcium (8.6-10.3) mg/dl Phosphorus 3.9 (2.5-4.9) mg/dl Magnesium 2.1 (1.7-2.4) mg/dl Iron 31 L (35-150) mcg/dl TIBC 429 (250-450) mcg/dl Unsaturated IBC 398 H (155-355) mcg/dl Transferrin % Sat 7 L (15-50) % Total Bilirubin (0.2-1.0) mg/dl AST (13-39) U/L ALT (7-52) U/L Alkaline Phosphatase (34-104) U/L Troponin I High Sens 31.6 H (0-14) pg/ml B-Natriuretic Peptide (0-100) pg/ml Total Protein (6.0-8.3) gm/dl Albumin (3.4-5.0) gm/dl Globulin (2.5-4.0) gm/dl Albumin/Globulin Ratio (0.9-2) Procalcitonin 0.18 (0-0.5) ng/ml TSH (0.300-4.500) uIu/ml Free T4 (0.61-1.60) ng/dl Urine Color Urine Appearance (Clear) Urine pH (4.5-7.5) Ur Specific [place] (1.000-1.030) Urine Protein (Negative) Urine Glucose (UA) (Negative) Urine Ketones (Negative) Urine Blood (Negative) Urine Nitrite (Negative) Urine Bilirubin (Negative) Urine Urobilinogen (Negative) Ur Leukocyte Esterase (Negative) Adenovirus (PCR) (NotDetected) B. pertussis DNA (PCR) (NotDetected) B.parapertussis DNA PCR (NotDetected) C. pneumoniae DNA (PCR) (NotDetected) Coronavirus OC43 (PCR) (NotDetected) Coronavirus HKU1 (PCR) (NotDetected) Coronavirus 229E (PCR) (NotDetected) SARS-CoV-2 (PCR) (NotDetected) Coronavirus NL63 (PCR) (NotDetected) Human Metapneumovir PCR (NotDetected) Influenza Type A (PCR) (NotDetected) Influenza Type B (PCR) (NotDetected) M. pneumoniae (PCR) (NotDetected) Parainfluenza 1 (PCR) (NotDetected) Parainfluenza 2 (PCR) (NotDetected) Parainfluenza 3 (PCR) (NotDetected) Parainfluenza 4 (PCR) (NotDetected) RSV (PCR) (NotDetected) Entero/Rhino (PCR) (NotDetected) Imaging Data Attestation: I personally reviewed and interpreted this imaging study as follows: My Impression: Chest x-raycardiomegaly with congestive changes. Radiologist's Impression: Chest X-Ray 05/02/24 10:35 XR chest 1V portable HISTORY: weakness COMPARISON: Chest 12/27/2023. FINDINGS: Scoliosis again noted. Degenerative changes within the left shoulder, unchanged. No pneumothorax. No pleural effusions. The heart remains enlarged. Diffuse interstitial thickening which is likely chronic. No evidence for pulmonary edema. Patchy densities at the right lung base have slightly progressed. This favors subsegmental atelectasis. A pneumonia would be difficult to exclude by imaging. Emphysema is noted. IMPRESSION: 1. Patchy right basilar densities have progressed and favor subsegmental atelectasis. A pneumonia would be difficult to exclude by imaging. 2. Cardiomegaly and chronic interstitial thickening again noted. ACT 112: Negative or not required by law. Electronically signed by: Arnel Cortés M.D. 05/02/2024 11:[address] 05/02/24 12:14 CT SCAN OF THE BRAIN WITHOUT IV CONTRAST CLINICAL HISTORY: Generalized weakness COMPARISON STUDY: CT of the brain dated 02/12/2024. MRI of the brain dated 06/12/2011. TECHNIQUE: Unenhanced axial CT scan of the brain is performed from the vertex to the skull base. A dose lowering technique was utilized adhering to the principles of ALARA. CT DOSE: 625.8 mGy.cm FINDINGS: Brain parenchyma: There is age-related involutional change noting moderate subcortical and periventricular microangiopathic disease. There is no hemorrhage, mass effect, or evidence of acute territorial ischemia by CT criteria. There is a 1.8 cm extra-axial nodule along the left convexity seen on axial image #24. Ott-white matter differentiation is preserved. No extra-axial fluid collection is seen. Ventricles, sulci, cisterns: Prominent secondary to involutional change. Intracranial vasculature: There is atherosclerotic calcification of the cavernous carotid and vertebral arteries. Calvarium: Unremarkable. Sinuses and mastoids: The paranasal sinuses are clear. The mastoid air cells are well pneumatized. Orbits: The bony orbits are grossly intact. There are bilateral ocular lens implants. IMPRESSION: 1. There is no hemorrhage, mass effect, or evidence of acute territorial ischemia by CT criteria. 2. There is a 1.8 cm extra-axial lesion along the left convexity, which is typical for a meningioma. There is no associated mass effect. A nonemergent contrast-enhanced MRI of the brain is recommended for further assessment. ACT 112: Negative or not required by law. Electronically signed by: Piter Joy M.D. 05/02/2024 1:24 PM ECG Data Attestation: I personally reviewed and interpreted this ECG as follows: Indication: + weakness Rate (beats per minute): 73 Rhythm: + normal sinus ECG Intervals/blocks: + First degree AV block, + Normal QRS and + Normal QT ECG [place]: + Normal ECG ST segments: + Normal ST segments ECG Findings: no PACs or no PVCs Comparison ECG Date: from (12/28/2023) Change: no significant change MDM Narrative This patient comes in as described above. She was placed in room A4 she has a complex medical history with CHF she has been feeling generally weak and had GI symptoms for the last several days her abdomen is nontender on my exam clinically her lungs are clear and she has no weight gain at home or lower extremity edema and does not appear to be fluid overloaded significantly. EKG was obtained and shows no ischemic changes. IV access was established. chest x- ray and blood work were ordered as well as COVID testing. she was reassessed frequently. Chest x-ray does suggest CHF and she has elevated BNP. She has chronic renal insufficiency. She has chronic elevation of white count however down compared to baseline. She has chronic anemia. Urinalysis was unremarkable. She has been feeling weak and I do think needs to come in it may be multifactorial at this point it could be related to CHF among other medical issues. I have discussed the case with Dr. Celestin, the [facility] hospitalist, in consultation and they will see her in the ER for admission/observation. Continuous cardiac monitoring: Orders placed in EMR for continuous property assessment monitor: Upon my evaluation patient noted to be normal sinus rhythm rate of rate of 60 Impression & Plan Weakness, CHF (congestive heart failure), Chronic kidney insufficiency, Diarrhea, Nausea Discharge Plan Visit Data Chief Complaint: Illness Stated Complaint: ILLNESS ED Provider: Jarod Han Discharge Problem: Weakness, CHF (congestive heart failure), Chronic kidney insufficiency, Diarrhea, Nausea Patient Disposition: Admitted As Inpatient Discharge Instructions Interventions: ED Discharge Assessment Last Done: 05/02/24 14:39 Forms Stand Alone Forms: My [facility] Prescriptions Prescriptions: No Action Eliquis 5 mg tablet 5 mg PO BID Qty: 180 1RF Rx Instructions: TAKE 1 TABLET BY MOUTH TWICE A DAY Entresto 97-103 mg tablet 1 tab PO BID Qty: 120 3RF atorvastatin [Lipitor] 80 mg tablet 80 mg PO HS Qty: 90 3RF clopidogrel 75 mg tablet 75 mg PO DAILY Qty: 90 3RF folic acid 1 mg tablet 1 mg PO DAILY Qty: 90 0RF (DME) Comfort Touch Ult Thin Lancets 31 gauge misc See Rx Instructions .Route Qty: 100 3RF Rx Instructions: pt tests every other day nitroglycerin [Nitrostat] 0.4 mg tablet, sublingual 0.4 mg sublingual UD PRN (Reason: Chest Pain) Qty: 25 1RF sertraline [Zoloft] 100 mg tablet 100 mg PO DAILY Qty: 90 1RF (DME) OneTouch Verio test strips Strip See Rx Instructions .ROUTE .MEDSUPPLY Qty: 100 1RF Rx Instructions: check once daily Dx code: E11.9 furosemide 20 mg tablet 20 mg PO QAM Qty: 90 3RF Rx Instructions: Can take and additional 20mg tablet as needed for weight gain, swelling or edema. fexofenadine 180 mg tablet 180 mg PO Q24H Qty: 90 3RF fluticasone propionate 50 mcg/actuation spray,suspension 1 spray intranasal QAM Qty: 48 1RF pantoprazole 40 mg tablet,delayed release (DR/EC) 40 mg PO DAILY Qty: 90 3RF amiodarone 200 mg tablet 200 mg PO QAM Qty: 90 1RF spironolactone 25 mg tablet 25 mg PO DAILY Qty: 90 0RF Rx Instructions: TAKE 1 TABLET BY MOUTH EVERY DAY mecobalamin (vitamin B12) 1,000 mcg tablet,disintegrating 1,000 mcg sublingual DAILY Qty: 90 1RF Rx Instructions: place tablet under tongue and allow to dissolve for at least30 secs before swallowing albuterol sulfate 90 mcg/actuation HFA aerosol inhaler 1 puff inhalation Q6H PRN (Reason: Shortness Of Breath) Qty: 8.5 1RF Rx Instructions: INHALE 1 PUFF BY MOUTH EVERY 6 HOURS NEEDED FOR SHORTNESS OF BREATH cholecalciferol (vitamin D3) 50 mcg (2,000 unit) tablet 2,000 unit PO QAM Qty: 90 3RF polyethylene glycol 3350 [Miralax] 17 gram/dose powder 17 g PO DAILY Qty: 119 5RF triamcinolone acetonide 0.5 % ointment 1 applic topical BID Qty: 15 0RF carvedilol 6.25 mg tablet 3.125 mg PO BID Qty: 180 3RF Tymlos 80 mcg (3,120 mcg/1.56 mL) pen injector 80 mcg SUBCUT QAM prednisone 10 mg tablet 10 mg PO UD Rx Instructions: tapering end date around 3 PO daily x 3 d, then 2 PO daily x 3 d, then 1 PO DAILY; Referrals Referrals: Arlen Frederick MD [Primary Care Provider] - Discharge Problem: CHF (congestive heart failure) Qualifiers: Heart failure type: unspecified Heart failure chronicity: unspecified Qualified Code(s): I50.9 - Heart failure, unspecified Chronic kidney insufficiency Qualifiers: Chronic kidney disease stage: unspecified stage Qualified Code(s): N18.9 - Chronic kidney disease, unspecified Diarrhea Qualifiers: Diarrhea type: unspecified type Qualified Code(s): R19.7 - Diarrhea, unspecified
[2024-05-02 11:01] LABS: Basophils # (auto) 0.07 K/uL (0.00-0.20); Basophils % (auto) 0.5 %; Eosinophils # (auto) 0.14 K/uL (0.00-0.50); Hematocrit (blood only) 30.4 % (37.0-47.0); Hemoglobin 9.5 g/dl (12.0-16.0); Immature Granulocytes # (auto) 0.07 K/uL (0.01-0.20); Immature Granulocytes % (auto) 0.5 %; Lymphocytes # (auto) 3.65 K/uL (1.20-3.40); Mean Corpuscular Hemoglobin 30.8 pg (25.0-34.0); Mean Corpuscular Hgb Conc 31.3 g/dL (32.0-36.0); Mean Corpuscular Volume 98.7 fL (80.0-100.0); Mean Platelet Volume 9.7 fL (9.4-12.4); Monocytes # (auto) 0.79 K/uL (0.11-0.59); Monocytes % (auto) 5.6 %; Neutrophils # (auto) 9.33 K/uL (1.40-6.50); Neutrophils % (auto) 66.4 %; Platelet Count 248 K/uL (130-400); RDW Coefficient of Variation 15.1 % (11.5-14.5); RDW Standard Deviation 54.4 fL (36.4-46.3); Red Blood Count 3.08 M/uL (4.20-5.40); White Blood Count 14.05 K/ul (4.8-10.8)
--- NOTE | 2024-05-02 11:03 | XRay Report ---
XR chest 1V portable HISTORY: weakness COMPARISON: Chest 12/27/2023. FINDINGS: Scoliosis again noted. Degenerative changes within the left shoulder, unchanged. No pneumot horax. No pleural effusions. The heart remains enlarged. Diffuse interstitial thickening which is lik nicko chronic. No evidence for pulmonary edema. Patchy densities at the right lung base have slightly p rogressed. This favors subsegmental atelectasis. A pneumonia would be difficult to exclude by imaging . Emphysema is noted. IMPRESSION: 1. Patchy right basilar densities have progressed and favor subsegmental atelectasis. A pneumonia wou ld be difficult to exclude by imaging. 2. Cardiomegaly and chronic interstitial thickening again noted. ACT 112: Negative or not required by law. Electronically signed by: Arnel Cortés M.D. 05/02/2024 11:02 AM
[2024-05-02] MEDS: ONDANSETRON INJ 2 MG/ML 2 ML VIAL IV STA (11:04)
[2024-05-02 11:16] LABS: Albumin Globulin Ratio 1.8 (0.9-2); Albumin Level 4.1 gm/dl (3.4-5.0); Bilirubin,Total 0.7 mg/dl (0.2-1.0); Calcium 9.6 mg/dl (8.6-10.3); Creatinine Clr Calc Pharmacy 29.3 ml/min; Est GFR (African American) 31.1 ml/min; Est GFR (Non-African American) 26.8 ml/min; Globulin 2.3 gm/dl (2.5-4.0); Potassium 4.4 mmol/L (3.5-5.1); Total Protein 6.4 gm/dl (6.0-8.3)
[2024-05-02 11:23] LABS: Troponin I High Sensitivity 28.2 pg/ml (0-14)
[2024-05-02 11:32] LABS: Thyroid Stimulating Hormone 5.937 uIu/ml (0.300-4.500)
[2024-05-02 11:52] LABS: Adenovirus PCR Not Detected (NotDetected); Bordetella parapertussis PCR Not Detected (NotDetected); Bordetella pertussis PCR Not Detected (NotDetected); Chlamydia pneumoniae PCR Not Detected (NotDetected); Coronavirus 229E PCR Not Detected (NotDetected); Coronavirus CoV-2 (COVID19)PCR Not Detected (NotDetected); Coronavirus HKU1 PCR Not Detected (NotDetected); Coronavirus NL63 PCR Not Detected (NotDetected); Coronavirus OC43PCR Not Detected (NotDetected); Human Metapneumovirus PCR Not Detected (NotDetected); Influenza A PCR Not Detected (NotDetected); Influenza B PCR Not Detected (NotDetected); Mycoplasma pneumoniae PCR Not Detected (NotDetected); Parainfluenza Virus 1 PCR Not Detected (NotDetected); Parainfluenza Virus 2 PCR Not Detected (NotDetected); Parainfluenza Virus 3 PCR Not Detected (NotDetected); Parainfluenza Virus 4 PCR Not Detected (NotDetected); Respiratory Syncytial VirusPCR Not Detected (NotDetected); Rhinovirus/Enterovirus PCR Not Detected (NotDetected)
[2024-05-02 12:10] LABS: T4 Free Thyroxine 1.35 ng/dl (0.61-1.60)
--- NOTE | 2024-05-02 12:23 | History & Physical Report ---
Date of Service May 02, 2024 Assessment & Plan (1) Weakness: Plan: Admit to med/tele on pulse oximetry Currently stable and nontoxic-appearing Presented to the ED today with family due to concerns for progressive generalized weakness, poor oral intake, and multiple episodes of nausea with nonbloody emesis and nonbloody diarrhea 04/30/2024 Patient has had a steady clinical decline over the past 6 months requiring multiple hospitalizations Her chronic leukocytosis is improving compared to previous admission, will add on Pro-Garrett and follow-up with UA to monitor for possible infection Will obtain mag and Phos levels along with anemia labs A component of patient's weakness is likely due to deconditioning as rehab has been recommended on the last few admissions but patient has been reluctant and has chose to go home with family instead Will follow-up CT of the head and brain without contrast which was ordered in the ED but not yet obtained at the time of the admission Fall/aspiration precautions PT/OT consults Heart healthy/DM type II diet with 2 g sodium 1800 mL fluid restriction AM CBC, CMP, mag, PT/INR (2) Cough: Plan: Patient has had a nonproductive cough over the past few weeks Has a known history of heart failure with moderately reduced ejection fraction with LVEF of 45-50% Was recently seen by Tatiana Ch in the CHF clinic, dry weight should be around 208 LB's, currently 212 LBS today Compared to previous chest x-ray. Chest x-ray today shows increased pulmonary vascular congestion Patient likely has a component of acute heart failure with reduced ejection fraction Will add on procalcitonin rule out possible pneumonia For now we will give 20 mg IV Lasix and continue with 20 mg IV twice daily Monitor intake output every shift, daily weights, Will obtain repeat echocardiogram to monitor for changes (3) CAD (coronary artery disease): Plan: Initial high-sensitivity troponin was mildly elevated at 28 Patient denies recent chest pain, no concerning ST segment or T wave changes on ECG today Mild troponin elevation likely due to demand from volume overload, will follow-up with repeat 2-hour high-sensitivity troponin currently in process Follow echocardiogram ordered on admission Continue monitor on telemetry for now Continue statin (4) CLL (chronic lymphocytic leukemia): Plan: Chronic leukocytosis continues to improve, currently 14 today (down from 18 as of 03/30/2024) [facility] on [facility] (5) Diabetes mellitus, type 2: Plan: Monitor BSG ACHS, goal is [id number] Will start conservative management due to poor oral intake recently with holding basal insulin Start CF of 50 and CR of 15 ACHS for now - Adjust regimen as needed (6) PAF (paroxysmal atrial fibrillation): Plan: Currently stable Continue Eliquis, amiodarone, carvedilol (7) Ischemic cardiomyopathy: Plan: Follow echocardiogram ordered on admission Continue Entresto Will hold spironolactone for now while on IV Lasix to avoid overdiuresis Plan That the patient was discussed with Dr. Santillan at the time of the admission History of Present Illness Chief Complaint: Generalized weakness, nausea, vomiting Primary Care Provider: Arlen Frederick MD Jere Diaz is an 78yo female with PMH of chronic low back pain, HFrEF (LVEF of 45-50%), CAD s/p anteroapical [place] in 2010, HTN, paroxysmal a fib, Diet controlled T2DM, CKD, CLL, and anxiety who presented to the [facility] ED on 05/02/2024 with multiple complaints including generalized weakness, nausea with nonbloody emesis, and diarrhea. She remained stable in the ED. Labs were significant for an improving white blood cell count of 14, with neutrophil predominance of 9, hemoglobin of 9.5 (down from 10 as of 03/30/2024), stable renal function with bicarb of 19 and anion gap within normal limits, initial high-sensitivity troponin 28 with BNP greater than 4700, and full respiratory BioFire negative. Chest x-ray was read as patchy right basilar densities have progressed in favor of subsegmental atelectasis. The superior imposed pneumonia would be difficult to exclude by imaging. Cardiomegaly and chronic interstitial thickening again noted. ECG shows sinus rhythm with first- degree AV block. Prior to admission the patient was given 4 mg IV Zofran. We are asked to admit the patient for generalized weakness and possible rehab placement. Patient was sitting in bed in no acute distress at time of exam with her daughter at bedside, history is obtained from both. Patient has been experiencing progressive generalized weakness over the past few weeks with associated dyspnea on exertion causing limited mobility. Diet has been poor as she has little appetite at this time. Has been having a nonproductive cough throughout the day. No recent urinary symptoms. Started develop nausea with nonbloody emesis and nonbloody diarrhea after eating hotdogs for dinner on 04/30/2024 however the symptoms have essentially resolved. Denies any diarrhea today has had mild nausea with dry heaves but no emesis. Has been taking her medications as prescribed. Almost had another fall today but likely family was there to stabilize her before she actually fell to the ground. Family is concerned she is getting too weak for them to safely care for her and she may need rehab and/or SNF placement. We discussed CODE STATUS, at this time the patient wishes to be a conditional code. She would not want CPR or defibrillation in the event of cardiac arrest. In the event of respiratory failure she would want a trial of intubation and mechanical ventilation but wo uld not want to be on a ventilator permanently. She would want her daughter to make medical decisions for her if she cannot make them herself. Please refer to Dr. Santillan's attestation for any changes to treatment plan Allergies Allergy/AdvReac Type Severity Reaction Status Date / Time bee venom protein (honey bee) Allergy Severe Anaphylaxis Verified 04/27/24 15:19 Penicillins Allergy Severe Rash, Verified 04/27/24 15:19 anaphylaxis Sulfa (Sulfonamide Allergy Severe Rash, Verified 04/27/24 15:19 Antibiotics) anaphylaxis Home Medications Medication Instructions Recorded Confirmed Type abaloparatide (Tymlos) 80 mcg subcut QAM 06/19/23 04/27/24 History apixaban 5 mg tablet (Eliquis) 5 mg PO BID #180 tabs 08/25/23 04/27/24 Rx atorvastatin 80 mg tablet (Lipitor) 80 mg PO HS #90 tabs 08/25/23 04/27/24 Rx clopidogrel 75 mg tablet 75 mg PO DAILY #90 tabs 08/25/23 04/27/24 Rx folic acid 1 mg tablet 1 mg PO DAILY #90 tabs 08/25/23 04/27/24 Rx lancets 31 gauge (Comfort Touch #100 ea 08/25/23 04/27/24 Rx Ultra Thin Lancets) nitroglycerin 0.4 mg sublingual 0.4 mg sublingual UD PRN Chest 08/25/23 04/27/24 Rx tablet (Nitrostat) Pain #25 tabs sacubitril 97 mg-valsartan 103 mg 1 tab PO BID #120 tabs 08/25/23 04/27/24 Rx tablet (Entresto) sertraline 100 mg tablet (Zoloft) 100 mg PO DAILY #90 tabs 08/25/23 04/27/24 Rx blood sugar diagnostic (OneTouch #100 ea 09/01/23 04/27/24 Rx Verio test strips) furosemide 20 mg tablet 20 mg PO QAM #90 tabs 11/10/23 04/27/24 Rx fexofenadine 180 mg tablet 180 mg PO Q24H #90 tabs 11/24/23 04/27/24 Rx fluticasone propionate 50 1 spray intranasal QAM #48 mL 12/02/23 04/27/24 Rx mcg/actuation nasal spray,suspension polyethylene glycol 3350 17 17 g PO DAILY #119 grams 12/20/23 04/27/24 Rx gram/dose oral powder (Miralax) pantoprazole 40 mg tablet,delayed 40 mg PO DAILY #90 tabs 01/18/24 04/27/24 Rx release amiodarone 200 mg tablet 200 mg PO QAM #90 tabs 03/07/24 04/27/24 Rx spironolactone 25 mg tablet 25 mg PO DAILY #90 tabs 03/07/24 04/27/24 Rx mecobalamin (vitamin B12) 1,000 1,000 mcg sublingual DAILY #90 tabs 03/10/24 04/27/24 Rx mcg disintegrating tablet,sublingual albuterol sulfate 90 mcg/actuation 1 puff inhalation Q6H PRN 03/21/24 04/27/24 Rx aerosol inhaler Shortness Of Breath #8.5 grams cholecalciferol (vitamin D3) 50 2,000 unit PO QAM #90 tabs 03/27/24 04/27/24 Rx mcg (2,000 unit) tablet prednisone 10 mg tablet See Rx Instructions PO DAILY #18 04/21/24 04/27/24 Rx tabs triamcinolone acetonide 0.5 % 1 applic topical BID #15 grams 04/21/24 04/27/24 Rx topical ointment carvedilol 6.25 mg tablet 3.125 mg (1/2 x 6.25 mg) PO BID 04/27/24 04/27/24 Rx #180 tabs Past Med/Surg History Problem List (Updated 05/02/24 @ 10:51 by Jarod Han MD) Weakness (Acute) Cough PND (post-nasal drip) DNS (deviated nasal septum) Otalgia of both ears Acute bronchitis Toxic encephalopathy Radicular low back pain Spinal stenosis Pulmonary edema (Acute) Anxiety Chronic cough Physician orders for life-sustaining treatment (POLST) form indicates patient wish for full code resuscitation status CKD (chronic kidney disease) stage 3, GFR 30-59 ml/min Compression fracture GERD (gastroesophageal reflux disease) (Chronic) Dyslipidemia (Chronic) CAD (coronary artery disease) Chronic combined systolic and diastolic CHF (congestive heart failure) Left ventricular dysfunction Medical History 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 [facility] 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 CLL (chronic lymphocytic leukemia) Ischemic cardiomyopathy PAF (paroxysmal atrial fibrillation) Diabetes mellitus, type 2 Depression Hypertension Seasonal allergies Cerebral artery occlusion History of CHF (congestive heart failure) Osteoarthritis of right knee GEL SHOT, MOST RECENT INJECTION FEBRUARY 2021 DM2 (diabetes mellitus, type 2) History of colon polyps Nausea and vomiting after administration of anesthetic agent Osteoarthritis Leukemia just monitoring On anticoagulant therapy Hearing deficit Stroke x3 ?--2010/2011--no neurologist, left arm weakness, uses cane to ambulate Hyperlipidemia Atrial fibrillation DX 2018 ? DR KENNEDY - NO HX CARDIOVERSION Myocardial Infarction 2010 & 2019...STENT X 1 Asthma LAST USE LAST WEEK Surgical History Hx of cataract surgery B/L H/O heart artery stent HX [place] , STENT X1 2019 History of phacoemulsification of cataract of both eyes with intraocular lens implantation History of dilatation and curettage x3 History of total left knee replacement (TKR) History of right breast biopsy x3--benign History of laparoscopy History of bilateral breast reduction surgery History of colonoscopy Family History Mother Family history of diabetes mellitus Myocardial infarction Family/Other Family history of diabetes mellitus cousin Aunt Breast cancer Father Myocardial infarction Stroke Other No family history of adverse response to anesthesia Denies family history of Ovarian cancer Prostate cancer Colorectal cancer Uterine cancer Social History Smoking Status: Never smoker Tobacco Type: Cigarettes Age Started Using Tobacco: 53; Age Quit Using Tobacco: 62; Cigarettes Per Day: HX OCCASSIONAL CIGARETTE 15 YRS AGO; Second Hand Exposure: No; Do You Dip or Chew Tobacco: No; Hx Alcohol Use: No Hx Substance Use: No Preferred Language: Macedonian Communication Ability: Effective Visual Impairment: No Limitations Hearing Ability: Use of Hearing Aid Digital Strategy Manager Required: No Beliefs That Will Affect Care: None marital status: / Current Living Situation: Family Current Living Situation Comment: lives with daughter current occupational status: retired current occupation: worked for [employer] Feels Safe at Home: Yes Childhood Exposure to Second-Hand Smoke: Yes Diet: low salt Diet Comment: low sodium Dental Care, Regularly: Yes Physical Activity Frequency: Does not Exercise Seatbelt Use: always Sunscreen Use: No Assistive Devices: Cane, Walker and Wheelchair Physical Exam Physical Exam: Physical Exam: General: In no acute distress, stated age, chronically ill-appearing but nontoxic HEENT: Normocephalic, atraumatic, no scleral icterus, pupils around round, symmetrical, and reactive to light, moist mucus membranes, no significant JVD, trachea midline, no thyromegaly Chest/Pulm: No respiratory distress, symmetrical chest expansion, scattered crackles in the bilateral lower mid lung mustafa Cardiac: RRR, 3/6 murmur noted Abdomen: Negative for ascites and bruising, normoactive bowel sounds, soft, non-tender to palpation throughout Musculoskeletal: Symmetrical and without signs of acute trauma, upper and lower extremities with full ROM, no atrophy, spasticity, or flaccidity Extremities: Radial, dorsalis pedis, and posterior tibial pulses are intact and symmetrical, 1+ edema noted in the BL LE's Skin: Warm, dry, no rashes , lesions, or scars noted Neuro: Alert and oriented to person, place, month, year, and president, no focal defects, no tremors noted Psych: No acute distress, calm and cooperative during the exam Results & Data Results & Data Vital Signs (Past 12 Hours) Vital Signs Temp Pulse Pulse Resp BP BP Pulse Ox 05/02/24 11:01 64 21 93 05/02/24 11:01 66 21 115/70 93 05/02/24 10:13 72 05/02/24 10:00 36.5 C 77 24 115/70 91 O2 Del Method 05/02/24 11:01 Room Air 05/02/24 11:01 Room Air 05/02/24 10:13 05/02/24 10:00 Room Air Laboratory Results Abnormal lab results 05/02/24 Range/Units 10:21 WBC 14.05 H (4.8-10.8) K/ul RBC 3.08 L (4.20-5.40) M/uL Hgb 9.5 L (12.0-16.0) g/dl Hct 30.4 L (37.0-47.0) % MCHC 31.3 L (32.0-36.0) g/dL RDW Std Deviation 54.4 H (36.4-46.3) fL RDW Coeff of Nino 15.1 H (11.5-14.5) % Neut # (Auto) 9.33 H (1.40-6.50) K/uL Lymph # (Auto) 3.65 H (1.20-3.40) K/uL Mccracken # (Auto) 0.79 H (0.11-0.59) K/uL Chloride 111 H (98-107) mmol/L Carbon Dioxide 19 L (21-32) mmol/L BUN 51 H (6-23) mg/dl Creatinine 1.76 H (0.6-1.2) mg/dl BUN/Creatinine Ratio 29.0 H (10-20) Glucose 167 H (70-99(Fasting)) mg/dl Alkaline Phosphatase 109 H (34-104) U/L Troponin I High Sens 28.2 H (0-14) pg/ml B-Natriuretic Peptide > 4700 H (0-100) pg/ml Globulin 2.3 L (2.5-4.0) gm/dl TSH 5.937 H (0.300-4.500) uIu/ml Diagnostic Findings Chest X-Ray 05/02/24 10:35 XR chest 1V portable HISTORY: weakness COMPARISON: Chest 12/27/2023. FINDINGS: Scoliosis again noted. Degenerative changes within the left shoulder, unchanged. No pneumothorax. No pleural effusions. The heart remains enlarged. Diffuse interstitial thickening which is likely chronic. No evidence for pulmonary edema. Patchy densities at the right lung base have slightly progressed. This favors subsegmental atelectasis. A pneumonia would be difficult to exclude by imaging. Emphysema is noted. IMPRESSION: 1. Patchy right basilar densities have progressed and favor subsegmental atelectasis. A pneumonia would be difficult to exclude by imaging. 2. Cardiomegaly and chronic interstitial thickening again noted. ACT 112: Negative or not required by law. Electronically signed by: Arnel Cortés M.D. 05/02/2024 11:02 AM Code Status & VTE Plan Code Status Conditional code, see HPI VTE Prophylaxis Plan VTE Prophylaxis will be ordered: Yes Supervising Physician Co-Signing Physician Notes Patient seen and examined, chart reviewed, case discussed with Osvaldo oCnroy PA-C and I agree with the assessment and plan as above except as otherwise noted Labs and images reviewed Patient is an 78-year-old female with a past medical history of heart failure with EF 45 to 50%, CAD, hypertension, paroxysmal A-fib, type II DM, CLL, CKD, anxiety presents with worsening generalized weakness, nausea, diarrhea. Chest x-ray shows right basilar densities? Atelectasis versus pneumonia. BNP is markedly elevated above the limits of detection greater than 4700. She is with lower extremity edema. Increased weakness and would also like placement. She has follow-up heart failure clinic and is noted of multifactorial weakness including deconditioning. She has been on Lasix 20 with spironolactone. Dry weight approximately 208 pounds. Currently to 212 pounds on admission. Agree with admission, diuresis, PT OT, strict ins and outs, low-sodium/fluid restricted diet. She is normotensive, she is not tachycardic, oxygen levels are lower limits of normal on room air 9093. Agree with above PG Care Time/CCT Total # of Minutes Spent Total Time Spent with Patient: Total time spent is greater than 50% in coordination of care (as documented) at patient's floor/unit and/or counseling patient: [place]oding [place] [id number] INT INP/OBS CARE 2/55MIN Patient Type Established History Comprehensive Exam Comprehensive Medical Decision Making Moderate Complexity Diagnoses Weakness R53.1 Chronic cough R05.3 Cough type: chronic CAD (coronary artery disease) I25.10 CLL (chronic lymphocytic leukemia) C91.90 Diabetes mellitus, type 2 E11.9 PAF (paroxysmal atrial fibrillation) I48.0 Ischemic cardiomyopathy I25.5 (2) Cough Cough type: chronic Qualified Code(s): R05.3 - Chronic cough
[2024-05-02] MEDS ORDERED: CARBOHYDRATES FOR HYPOGLYCEMIA PO PRN (12:58)
[2024-05-02] MEDS ORDERED: GLUCAGON FOR INJ 1 MG VIAL SQ PRN (12:58)
[2024-05-02] MEDS ORDERED: DEXTROSE 50% 50 ML SYRINGE IV PRN (12:58)
[2024-05-02] MEDS ORDERED: GLUCOSE 10 TAB/TUBE PO PRN (12:58)
[2024-05-02] MEDS ORDERED: GLUCOSE 40% GEL 15 GM TUBE PO PRN (12:58)
[2024-05-02 13:22] LABS: Appearance Urine Clear (Clear); Bilirubin Urine Negative (Negative); Blood Urine Negative (Negative); Color Urine Yellow; Glucose Urine UA Negative (Negative); Ketones Urine Negative (Negative); Leukocyte Esterase Urine Negative (Negative); Nitrite Urine Negative (Negative); Protein Urine Negative (Negative); Specific Gravity Urine 1.012 (1.000-1.030); Urobilinogen Urine Negative (Negative)
[2024-05-02 13:25] LABS: Magnesium 2.1 mg/dl (1.7-2.4); Phosphorus 3.9 mg/dl (2.5-4.9)
--- NOTE | 2024-05-02 13:26 | CT Scan Report ---
CT SCAN OF THE BRAIN WITHOUT IV CONTRAST CLINICAL HISTORY: Generalized weakness COMPARISON STUDY: CT of the brain dated 02/12/2024. MRI of the brain dated 06/12/2011. TECHNIQUE: Unenhanced axial CT scan of the brain is performed from the vertex to the skull base. A do se lowering technique was utilized adhering to the principles of ALARA. CT DOSE: 625.8 mGy.cm FINDINGS: Brain parenchyma: There is age-related involutional change noting moderate subcortical and periventri cular microangiopathic disease. There is no hemorrhage, mass effect, or evidence of acute territorial ischemia by CT criteria. There is a 1.8 cm extra-axial nodule along the left convexity seen on axial image #24. Ott-white matter differentiation is preserved. No extra-axial fluid collection is seen. Ventricles, sulci, cisterns: Prominent secondary to involutional change. Intracranial vasculature: There is atherosclerotic calcification of the cavernous carotid and vertebr al arteries. Calvarium: Unremarkable. Sinuses and mastoids: The paranasal sinuses are clear. The mastoid air cells are well pneumatized. Orbits: The bony orbits are grossly intact. There are bilateral ocular lens implants. IMPRESSION: 1. There is no hemorrhage, mass effect, or evidence of acute territorial ischemia by CT criteria. 2. There is a 1.8 cm extra-axial lesion along the left convexity, which is typical for a meningioma. There is no associated mass effect. A nonemergent contrast-enhanced MRI of the brain is recommended f or further assessment. ACT 112: Negative or not required by law. Electronically signed by: Piter Joy M.D. 05/02/2024 1:24 PM
[2024-05-02 13:30] LABS: Troponin I High Sensitivity 31.6 pg/ml (0-14)
[2024-05-02] MEDS ORDERED: ALBUTEROL HFA 8 GM INHALER INH PRN (14:01)
--- OUTSIDE RECORDS SUMMARY | 2024-05-02 14:15 | External Medical Summary | Summary of Care ---
Author Name Unknown Organization [facility] Address [address] [place] [address] Phone [phone] Care Team Providers Care Broadcasting Equipment Mechanic Name Role Phone Arlen Frederick MD Primary Care Provider Reason for Visit * Reason Onset Date Comments Information 05/01/2024 Encounter Details Date Type Department Care Team (Late st Contact Info) Description 05/01/2024 Telephone Hematology/Oncology Treatment, [place] [address] [place] [address] Bo Castillo MD [address] [place] [address] Information Allergies Active Allergy Reactions Criticality Noted Date Comments Amlodipine Besylate 11/05/2004 palpitation, headache Bee Venom 04/09/2004 Penicillins 10/19/2001 Pseudoephedrine 03/25/2001 Sulfa Antibiotics 03/25/2001 documented as of this encounter (statuses as of 05/01/2024) Medications Medication Sig Dispensed Refills Start Date End Date Status FLONASE 50 MCG/ACT NA SUSPIndications:Chano rgic purpura (HCC) Two sprays each nostril once daily 1 Bottle 11 05/12/2012 Active nitroglycerin (NITROSTAT) 0.4 MG SUBL 0.4 mg every 5 minutes as needed for Pain, Chest. 05/16/2019 Active amiodarone (CORDARONE) 200 MG Tablet Take 1 Tab by mouth 2 times a day. 60 Tab 07/14/2019 Active apixaban (ELIQUIS) 5 MG Tablet Take 1 Tab by mouth 2 times a day. 60 Tab 07/14/2019 Active atorvaSTATin (LIPITOR) 80 MG Tablet Take 1 Tab by mouth daily. 30 Tab 07/14/2019 Active fluticasone furoate-vilanterol (BREO ELLIPTA) 100-25 MCG/INH AEPB Inhale 1 Puff by mouth daily. 1 Each 07/14/2019 Active carvedilol (COREG) 6.25 MG Tablet Take 1 Tab by mouth 2 times a day. 60 Tab 07/14/2019 Active citalopram (CELEXA) 20 MG Tablet Take 1 Tab by mouth daily. 30 Tab 07/14/2019 Active Additional Information Patient not taking.Reported on 11/05/2021 sacubitril-valsartan 24-26 mg per tab (ENTRESTO) 24-26 MG TABS Take 1 Tab by mouth 2 times a day. 60 Tab 07/14/2019 Active furosemide (LASIX) 40 MG Tablet Take 1 Tab by mouth daily. 30 Tab 07/14/2019 Active pantoprazole (PROTONIX) 40 MG TBEC Take 1 Tab by mouth daily. 30 Tab 07/14/2019 Active potassium chloride ER 10 MEQ CPCR Take 1 Cap by mouth daily. 30 Cap 07/14/2019 Active spironolactone (ALDACTONE) 25 MG Tablet Take 1 Tab by mouth daily. 30 Tab 07/14/2019 Active Clopidogrel Bisulfate 75 MG Oral Tablet (pLAVix) Take 75 mg by mouth daily. Active metFORMIN HCl ER (MOD) 500 MG Oral Tablet Extended Release 24 Hour Take 500 mg by mouth daily with dinner. Active Ferrous Sulfate 325 (65 Fe) MG Oral Tablet (Feosol)Indications: Other iron deficiency anemia 1 tablet every other day 15 Tab 11 10/08/2020 Active Sertraline HCl 100 MG Oral Tablet (Zoloft) Take by mouth 100 mg in the morning. Active Tymlos 3120 MCG/1.56ML Subcutaneous Solution Pen-injector (Abaloparatide) Inject 80 mcg under the skin in the morning. Active [facility] Vitamin B12 1000 MCG Oral Tablet Extended Release (Cyanocobalamin ER)Indications:B12 deficiency TAKE 1 TABLET BY MOUTH EVERY DAY IN THE MORNING 90 Tablet 3 08/19/2023 Active Albuterol Sulfate HFA 108 (90 Base) MCG/ACT Inhalation Aerosol Solution 2 puff(s) (of 108 (90 base) mcg/act) Aerosol, solution Inhalation daily Active Folic Acid 1 MG Oral TabletIndications:Fo lic acid deficiency,Encounter for long-term (current) use of medications,Other iron deficiency anemia TAKE 1 TABLET BY MOUTH EVERY DAY IN THE MORNING 90 Tablet 2 01/02/2024 Active documented as of this encounter (statuses as of 05/01/2024) Active Problems Problem Noted Date Diagnosed Date Other iron deficiency anemias 11/05/2021 Type 2 diabetes mellitus wit h stage 3 chronic kidney disease, without long-term current use of insulin 07/08/2019 CLL (chronic lymphocytic leukemia) 06/16/2012 Hemiplegia, post-stroke 07/03/2011 Cerebrovascular disease, arteriosclerotic, post- stroke 07/01/2011 BMI 35-39 ISOLATED (SEE ACTUAL BMI) 02/24/2010 Overview: Per Obesity Protocol, #19 DYSLIPIDEMIA, GOAL TO BE DETERMINED 08/27/2009 Overview: Per Lipid Taxonomy. Menopause 04/13/2006 Overview: 1994 ADVANCE DIRECTIVE INFORMATION 06/08/2005 Overview: No, Advance Directive brochure given to patient at prior appointment. ABN FIND-STOOL CONTENTS 12/31/2003 Palpitations 07/05/2002 HTN, goal below 140/90 Anxiety state Other allergic rhinitis Overview: ICD-10 update of inactive term Reflux esophagitis Major depressive disorder Overview: 10/19/01 ICD-10 update of inactive term Aortic valve disorder Overview: ECHO 02/14, needs pre-op ABx prophylasis documented as of this encounter (statuses as of 05/01/2024) Resolved Problems Problem Noted Date Diagnosed Date Resolved Date Syncope and collapse 07/05/2002 006 Hemoptysis 06/20/2002 04/13/2006 Overview: ICD-10 update of inactive term PURE HYPERCHOLESTEROLEM 08/13 Overview: Per Lipid Taxonomy. documented as of this encounter (statuses as of 05/01/2024) Immunizations Name Administration Dates Next Due H1N1 2009 Influenza, IM 09/24/2009 Influenza, Whole Virus 07/26/2001 Pneumococcal Conjugate Vacci ne, 7 Valent 01/17/2003 Pneumococcal Polysaccharide PPV23 (Pneumovax) 06/03/2009 Seasonal Influenza, Quadriva lent Hd (Fluzone Hd) 05/14/2023 Seasonal Influenza, Split, I IV3, With Preserve, Inj 06/07/2012,06/11/2011,06/04/2010,06/03,07/09/2008,07/08/2007,06/23/2006 ,06/23/2004,06/26/2003 TDAP, Age 7 and older, IM (Adacel) 05/05/2007 documented as of this encounter Social History Tobacco Use Types Packs/Day Years Used Date Smoking Tobacco: Former Cigarettes Q uit: 09/13/1961 Smokeless Tobacco: Never Alcohol Use Standard Drinks/Week Comments Yes 0 (1 standard drink = 0.6 oz pur e alcohol) Occasional Sex and Gender Information Value Date Recorded Sex Assigned at Not on file Gender Identity Female 11/12/2023 8:19 AM EST Sexual Orientation Not on file Job Start Date Occupation Industry Not on file Not on file Not on file documented as of this encounter Miscellaneous Notes * Telephone Encounter - Giselle Ryan OSA - 05/01/2024 12:27 PM EDT Apt is scheduled for Wednesday as pt stated that she now has diarrhea * Telephone Encounter - Arnel Emerson RN - 05/01/2024 11:56 AM EDT Scheduling- Vikt[facility]ya has a 3P opening today if we would like to offer this to the patient's daughter. If they can't do this she can be seen by Kaylie on Wednesday. * Telephone Encounter - Bo Castillo MD - 05/01/2024 11:27 AM EDT She should be seen in the clinic soon. Viktoriya can see her. * Telephone Encounter - Arnel Emerson RN - 05/01/2024 10:52 AM EDT Pt daughter also sent the following [employer] message: "I spoke with Melani this morning regarding my mothers symptoms but thought it may help if I sent a message as well. She is extremely tired to the point that she is falling asleep sitting up. I was just talking to her and she drifted off. She isn't sleeping well at night, out of breath walking less than 50 feet, ulcer on her tongue, colder than normal with her blood thinners, she has been nauseous for weeks, and doesn't have much of an appetite. Our appointment is a little over a month away and I was hoping that we can do something in the meantime. We have been to her tie carrier and heart failure doctor twice now, have contacted her PCP. Other than her consistent problems, they cannot find anything wrong. After seeing her labs I thought maybe the low iron was the contributing factor. I look forward to hearing from you soon. Lita Prater [phone] " * Telephone Encounter - Melani Hanna RN - 05/01/2024 9:13 AM EDT Received call from Lita. She states that for about 6 weeks now her mom has been extremely exhausted, can't stay awake, weak, cold, SOB, nauseous. She has taken her to PCP and tie carrier several times and they cannot figure out what is causing it. She saw her mom's lab results on portal and is wondering if this can be contributing. Advised her that we will review with Dr Castillo and follow up with her. Dr Castillo: please review/ advise. Thanks! documented in this encounter Plan of Treatment Upcoming Encounters Date Type Department Care Team (Late st Contact Info) Description 05/03/2024 3:30 PM EDT Office Visit Hematology/Oncology [facility] [address] [facility] [place] [phone] Kaylie Nicole CRNP [address] [place] [address] 06/06/2024 4:00 PM EDT Office Visit Hematology/Oncology [facility] [address] [facility] [place] [address] Viktoriya Sosa CRNP [address] [place] [address] Health Maintenance Due Date Last Done Comments Depression Monitoring 1955 Albumin/Creatinine Ratio 1961 Diabetic Eye Exam 1961 Diabetic Foot Exam 1961 Zoster Vaccines (1 of 2) 04/17/2010 02/20/2010, 11/2009 Colonoscopy 2012 2009, 11/2005, 02/19/2005 DTaP,Tdap,and Td Vaccines (2 - Td or Tdap) 05/05/2017 05/05/2007 CKD PHOS USE SMARTSET 94704 06/20/2020 06/20/2019 HbA1c 12/02/2020 06/04/2020, 10/14, 06/21/2019, Additional history exists COVID-19 Vaccine ( season) 2023 06/05/2022, 06/19/2021, 12/06/2020, Additional history exists Influenza Vaccine (FLU shot) (#1) 2024 05/14/2023, 04/13/2022, 06/13/2020, Additional history exists DXA Scan 07/29/2024 07/29/2017, 08/14, 05/07/2009, Additional history exists GFR 10/29/2024 04/28/2024, 10/14, 05/05/2023, Additional history exists CKD HGB USE SMARTSET 84072 04/28/202504/28, 04/28/2024, 10/28/2023, Additional history exists Pneumococcal Vaccine: 65+ Years Completed 06/29/2019, 09/14/2014, 06/03/2009, Additional history exists HPV (Gardasil) Vaccine Aged Out No lo nger eligible based on patient's age to complete this topic Hepatitis B Vaccine Aged Out No longe r eligible based on patient's age to complete this topic MENINGOCOCCAL (MENACTRA/MENVEO) Aged Out No longer eligible based on patient's age to complete this topic documented as of this encounter Medical Devices Not on filedocumented as of this encounter Care Teams Broadcasting Equipment Mechanic Relationship Specialty Start Date End Date Arlen Frederick MD [address] [place] [address] PCP - General Family Medicine 01/24/21 documented as of this encounter
--- OUTSIDE RECORDS SUMMARY | 2024-05-02 14:16 | External Medical Summary ---
Author Name Unknown Address Unknown Organization K09:[facility] [place] [address] Laboratory Report Ordering Provider Test Date Status KO VERMA 04/28/2024 12:55:52 Final Observation Date Value Abnormality Reference (Units ) Status SYNC LEUKOCYTES IN BLOOD BY AUTOMATED COUNT 04/28/2024 12:55:52 12.44 Above high normal 4.00-10.80 (K/uL) Final Segs 04/28/2024 12:55:52 52.0 40.0-75.0 (%) Final Lymphs % 04/28/2024 12:55:52 39.3 18.0-42.0 (%) Final Monos 04/28/2024 12:55:52 5.9 1.0-11.0 (%) Final Eosinophils 04/28/2024 12:55:52 2.6 0.0-6.0 (%) Final Basos 04/28/2024 12:55:52 0.2 0.0-2.0 (%) Final Absolute Segs 04/28/2024 12:55:52 6.48 1.80-7.70 (K/uL) Final Lymphs, absolute 04/28/2024 12:55:52 4.89 Above high normal 1.00-4.80 (K/ul) Final Monos, Abs 04/28/2024 12:55:52 0.73 0.00-1.10 (K/uL) Final Eos, Abs 04/28/2024 12:55:52 0.32 0.00-0.70 (K/uL) Final Basos, Abs 04/28/2024 12:55:52 0.02 0.00-0.20 (K/uL) Final Performing Location [facility] [place] [address]
--- OUTSIDE RECORDS SUMMARY | 2024-05-02 14:16 | External Medical Summary ---
Author Name Unknown Address Unknown Organization K01[facility] [place] [address] [place] [address] Laboratory Report Ordering Provider Test Date Status KO VERMA 04/28/2024 12:55:52 Final Observation Date Value Abnormality Reference (Units ) Status Vitamin B12 04/28/2024 12:55:52 1631 Above high normal 232-1245 (pg/mL) Final Performing Location [facility] - [address] [place] [address]
--- OUTSIDE RECORDS SUMMARY | 2024-05-02 14:16 | External Medical Summary | Summary of Care ---
Author Name Unknown Organization [facility] Address [address] [place] [address] Phone [phone] Care Team Providers Care Co Founder And Director Name Role Phone Arlen Frederick MD Primary Care Provider Reason for Visit * Reason Onset Date Comments Information 05/01/2024 Encounter Details Date Type Department Care Team (Late st Contact Info) Description 05/01/2024 Telephone Hematology/Oncology Treatment, [place] [address] [place] [address] Bo Castillo MD [address] [place] [address] Information Allergies Active Allergy Reactions Criticality Noted [...] encounter Miscellaneous Notes * Telephone Encounter - Bo Castillo MD - 05/01/2024 11:27 AM EDT She should be seen in the clinic soon. Viktoriya can see her. * Telephone Encounter - Arnel Emerson RN - 05/01/2024 10:52 AM EDT Pt daughter also sent the following [employer] message: "I spoke with Melani this morning [...] the meantime. We have been to her station inspector and heart failure doctor twice now, have contacted her PCP. Other than her consistent problems, they cannot find anything wrong. After seeing her labs I thought maybe the low iron was the contributing factor. I look forward to hearing from you soon. Lita Prater [phone] " * Telephone Encounter - Melani Hanna RN - 05/01/2024 9:13 AM EDT Received call from Lita. She states that for about 6 weeks now her mom has been extremely exhausted, can't stay awake, weak, cold, SOB, nauseous. She has taken her to PCP and station inspector several times and they cannot figure out [...] Care Team (Late st Contact Info) Description 06/06/2024 4:00 PM EDT Office Visit Hematology/Oncology [place] [address] [place] [phone] Viktoriya Sosa CRNP [address] [place] [address] Health Maintenance Due Date Last Done Comments Depression Monitoring 1955 Albumin/Creatinine Ratio 1961 Diabetic Eye Exam 1961 Diabetic Foot Exam 1961 Zoster Vaccines (1 of 2) 04/17/2010 02/20/2010, 11/2009 Colonoscopy 2012 2009, 11/2005, 02/19/2005 DTaP,Tdap,and Td Vaccines (2 - Td or Tdap) 05/05/2017 05/05/2007 CKD PHOS USE SMARTSET 20540 06/20/2020 06/20/2019 HbA1c 12/02/2020 06/04/2020, 10/14, 06/21/2019, Additional history exists COVID-19 Vaccine ( season) 2023 06/05/2022, 06/19/2021, 12/06/2020, Additional history exists Influenza Vaccine (FLU shot) (#1) 2024 05/14/2023, 04/13/2022, 06/13/2020, Additional history exists DXA Scan 07/29/2024 07/29/2017, 08/14, 05/07/2009, Additional history exists GFR 10/29/2024 04/28/2024, 10/14, 05/05/2023, Additional history exists CKD HGB USE SMARTSET 80472 04/28/202504/28, 04/28/2024, 10/28/2023, Additional history exists Pneumococcal [...] filedocumented as of this encounter Care Teams Co Founder And Director Relationship Specialty Start Date End Date Alren Frederick MD [address] [place] [address] PCP - General Family Medicine 01/24/21 documented as of this encounter
--- OUTSIDE RECORDS SUMMARY | 2024-05-02 14:16 | External Medical Summary | Summary of Care ---
Author Name Unknown Organization [facility] Address [address] [place] [address] Phone [phone] Care Team Providers Care Internal Medicine Nurse Practitioner Name Role Phone Arlen Frederick MD Primary Care Provider Reason for Visit * Reason Onset Date Comments Information 05/01/2024 Encounter Details Date Type Department Care Team (Late st Contact Info) Description 05/01/2024 Telephone Hematology/Oncology Treatment, [place] [address] [place] [address] Bo Castillo MD [address] [place] [address] Information Allergies Active Allergy Reactions Criticality Noted [...] encounter Miscellaneous Notes * Telephone Encounter - Arnel Emerson RN [...] EDT Pt daughter also sent the following [employer] message: "I spoke with Melani this morning [...] the meantime. We have been to her boxer operator and heart failure doctor twice now, have contacted her PCP. Other than her consistent problems, they cannot find anything wrong. After seeing her labs I thought maybe the low iron was the contributing factor. I look forward to hearing from you soon. Lita Moi [phone] " * Telephone Encounter - Melani Hanna RN - 05/01/2024 9:13 AM EDT Received call from Lita. She states that for about 6 weeks now her mom has been extremely exhausted, can't stay awake, weak, cold, SOB, nauseous. She has taken her to PCP and boxer operator several times and they cannot figure out [...] Office Visit Hematology/Oncology [place] [address] [facility] [place] [address] Viktoriya Sosa CRNP [address] [place] [address] Health Maintenance Due Date Last Done Comments Depression Monitoring 1955 Albumin/Creatinine Ratio 1961 Diabetic Eye Exam 1961 Diabetic Foot Exam 1961 Zoster Vaccines (1 of 2) 04/17/2010 02/20/2010, 11/2009 Colonoscopy 2012 2009, 11/2005, 02/19/2005 DTaP,Tdap,and Td Vaccines (2 - Td or Tdap) 05/05/2017 05/05/2007 CKD PHOS USE SMARTSET 51465 06/20/2020 06/20/2019 HbA1c 12/02/2020 06/04/2020, 10/14, 06/21/2019, Additional history exists COVID-19 Vaccine ( season) 2023 06/05/2022, 06/19/2021, 12/06/2020, Additional history exists Influenza Vaccine (FLU shot) (#1) 2024 05/14/2023, 04/13/2022, 06/13/2020, Additional history exists DXA Scan 07/29/2024 07/29/2017, 08/14, 05/07/2009, Additional history exists GFR 10/29/2024 04/28/2024, 10/14, 05/05/2023, Additional history exists CKD HGB USE SMARTSET 44223 04/28/202504/28, 04/28/2024, 10/28/2023, Additional history exists Pneumococcal [...] filedocumented as of this encounter Care Teams Internal Medicine Nurse Practitioner Relationship Specialty Start Date End Date Arlen Frederick MD [address] [place] [address] PCP - General Family Medicine 01/24/21 documented as of this encounter
--- OUTSIDE RECORDS SUMMARY | 2024-05-02 14:16 | External Medical Summary | Summary of Care ---
Author Name Unknown Organization [facility] Address [address] [place] [address] Phone [phone] Care Team Providers Care Cadmium Burner Name Role Phone Arlen Frederick MD Primary Care Provider Reason for Visit * Reason Onset Date Comments Information 05/01/2024 Encounter Details Date Type Department Care Team (Late st Contact Info) Description 05/01/2024 Telephone Hematology/Oncology Treatment, [place] [address] [place] [address] Bo Castillo MD [address] [place] [address] Information Allergies Active Allergy Reactions Criticality Noted [...] EDT Pt daughter also sent the following [employer] message: "I spoke with Melani this morning [...] the meantime. We have been to her management liaison and heart failure doctor twice now, have contacted her PCP. Other than her consistent problems, they cannot find anything wrong. After seeing her labs I thought maybe the low iron was the contributing factor. I look forward to hearing from you soon. Lita Prater [phone] " * Telephone Encounter - Melani Hanna RN - 05/01/2024 9:13 AM EDT Received call from Lita. She states that for about 6 weeks now her mom has been extremely exhausted, can't stay awake, weak, cold, SOB, nauseous. She has taken her to PCP and management liaison several times and they cannot figure out [...] 06/06/2024 4:00 PM EDT Office Visit Hematology/Oncology [facility] [place] [address] [facility] [place] [address] Viktoriya Sosa CRNP [address] [facility] [place] [address] Health Maintenance Due Date Last Done Comments Depression Monitoring 1955 Albumin/Creatinine Ratio 1961 Diabetic Eye Exam 1961 Diabetic Foot Exam 1961 Zoster Vaccines (1 of 2) 04/17/2010 02/20/2010, 11/2009 Colonoscopy 2012 2009, 11/2005, 02/19/2005 DTaP,Tdap,and Td Vaccines (2 - Td or Tdap) 05/05/2017 05/05/2007 CKD PHOS USE SMARTSET 07545 06/20/2020 06/20/2019 HbA1c 12/02/2020 06/04/2020, 10/14, 06/21/2019, Additional history exists COVID-19 Vaccine (2022- season) 2023 06/05/2022, 06/19/2021, 12/06/2020, Additional history exists Influenza Vaccine (FLU shot) (#1) 2024 05/14/2023, 04/13/2022, 06/13/2020, Additional history exists DXA Scan 07/29/2024 07/29/2017, 08/14, 05/07/2009, Additional history exists GFR 10/29/2024 04/28/2024, 10/14, 05/05/2023, Additional history exists CKD HGB USE SMARTSET 78087 04/28/202504/28, 04/28/2024, 10/28/2023, Additional history exists Pneumococcal [...] filedocumented as of this encounter Care Teams Cadmium Burner Relationship Specialty Start Date End Date Arlen Frederick MD [address] [place] [address] PCP - General Family Medicine 01/24/21 documented as of this encounter
--- OUTSIDE RECORDS SUMMARY | 2024-05-02 14:16 | External Medical Summary ---
Author Name Unknown Address Unknown Organization K01:[facility] - [address] [facility] [address] Laboratory Report Ordering Provider Test Date Status KO VERMA 04/28/2024 12:55:52 Final Observation Date Value Abnormality Reference (Units ) Status Ferritin 04/28/2024 12:55:52 62 13-150 (ng /mL) Final Postmenopausal women have hi gher ferritin levels than pre-menopausal women. The above reference interval is based on pre-menopausal women. Performing Location [facility] - [address] [place] [address]
--- OUTSIDE RECORDS SUMMARY | 2024-05-02 14:16 | External Medical Summary | Summary of Care ---
Author Name Unknown Organization [facility] Address [address] [place] [address] Phone [phone] Care Team Providers Care Enzyme Chemist Name Role Phone Arlen Frederick MD Primary Care Provider Reason for Visit * Reason Onset Date Comments Information 05/01/2024 Encounter Details Date Type Department Care Team (Late st Contact Info) Description 05/01/2024 Telephone Hematology/Oncology Treatment, [place] [address] [place] [address] Bo Castillo MD [address] [place] [address] Information Allergies Active Allergy Reactions Criticality Noted [...] EDT Pt daughter also sent the following [employer] message: "I spoke with Melani this morning [...] the meantime. We have been to her power electronics engineer and heart failure doctor twice now, have contacted her PCP. Other than her consistent problems, they cannot find anything wrong. After seeing her labs I thought maybe the low iron was the contributing factor. I look forward to hearing from you soon. Lita Prater [phone] " * Telephone Encounter - Melani Hanna RN - 05/01/2024 9:13 AM EDT Received call from Lita. She states that for about 6 weeks now her mom has been extremely exhausted, can't stay awake, weak, cold, SOB, nauseous. She has taken her to PCP and power electronics engineer several times and they cannot figure out [...] 05/03/2024 3:30 PM EDT Office Visit Hematology/Oncology [facility] 200 [facility] [place] [phone] Kaylie Nicole CRNP [address] [place] [address] 06/06/2024 4:00 PM EDT Office Visit Hematology/Oncology [facility] [address] [facility] [place] [address] Viktoriya Sosa CRNP [address] [place] [address] Health Maintenance Due Date Last Done Comments Depression Monitoring 1955 Albumin/Creatinine Ratio 1961 Diabetic Eye Exam 1961 Diabetic Foot Exam 1961 Zoster Vaccines (1 of 2) 04/17/2010 02/20/2010, 11/2009 Colonoscopy 2012 2009, 11/2005, 02/19/2005 DTaP,Tdap,and Td Vaccines (2 - Td or Tdap) 05/05/2017 05/05/2007 CKD PHOS USE SMARTSET 27930 06/20/2020 06/20/2019 HbA1c 12/02/2020 06/04/2020, 10/14, 06/21/2019, Additional history exists COVID-19 Vaccine ( season) 2023 06/05/2022, 06/19/2021, 12/06/2020, Additional history exists Influenza Vaccine (FLU shot) (#1) 2024 05/14/2023, 04/13/2022, 06/13/2020, Additional history exists DXA Scan 07/29/2024 07/29/2017, 08/14, 05/07/2009, Additional history exists GFR 10/29/2024 04/28/2024, 10/14, 05/05/2023, Additional history exists CKD HGB USE SMARTSET 40475 04/28/202504/28, 04/28/2024, 10/28/2023, Additional history exists Pneumococcal [...] filedocumented as of this encounter Care Teams Enzyme Chemist Relationship Specialty Start Date End Date Arlen Frederick MD [address] [place] [address] PCP - General Family Medicine 01/24/21 documented as of this encounter
--- OUTSIDE RECORDS SUMMARY | 2024-05-02 14:16 | External Medical Summary | Summary of Care ---
Author Name Unknown Organization [facility] Address [address] [place] [address] Phone [phone] Care Team Providers Care Php Lamp Developer Name Role Phone Arlen Frederick MD Primary Care Provider Reason for Visit * Reason Onset Date Comments Information 05/01/2024 Encounter Details Date Type Department Care Team (Late st Contact Info) Description 05/01/2024 Telephone Hematology/Oncology Treatment, [place] [address] [place] [address] Bo Castillo MD [address] [place] [address] Information Allergies Active Allergy Reactions Criticality Noted [...] 05/01/2024 12:27 PM EDT Apt is scheduled * Telephone Encounter - Arnel Emerson RN [...] EDT Pt daughter also sent the following [employer] message: "I spoke with Melani this morning [...] the meantime. We have been to her tap out operator and heart failure doctor twice now, have contacted her PCP. Other than her consistent problems, they cannot find anything wrong. After seeing her labs I thought maybe the low iron was the contributing factor. I look forward to hearing from you soon. Lita Prater [phone] " * Telephone Encounter - Melani Hanna RN - 05/01/2024 9:13 AM EDT Received call from Lita. She states that for about 6 weeks now her mom has been extremely exhausted, can't stay awake, weak, cold, SOB, nauseous. She has taken her to PCP and tap out operator several times and they cannot figure [...] 05/03/2024 3:30 PM EDT Office Visit Hematology/Oncology [facility] [address] [facility] [place] [phone] Kaylie Nicole CRNP [address] [place] [id number] 06/06/2024 4:00 PM EDT Office Visit Hematology/Oncology [facility] [address] [facility] [place] [phone] Viktoriya Sosa CRNP [address] [place] [address] Health Maintenance Due Date Last Done Comments Depression Monitoring 1955 Albumin/Creatinine Ratio 1961 Diabetic Eye Exam 1961 Diabetic Foot Exam 1961 Zoster Vaccines (1 of 2) 04/17/2010 02/20/2010, 11/2009 Colonoscopy 2012 2009, 11/2005, 02/19/2005 DTaP,Tdap,and Td Vaccines (2 - Td or Tdap) 05/05/2017 05/05/2007 CKD PHOS USE SMARTSET 15867 06/20/2020 06/20/2019 HbA1c 12/02/2020 06/04/2020, 10/14, 06/21/2019, Additional history exists COVID-19 Vaccine (2022- season) 2023 06/05/2022, 06/19/2021, 12/06/2020, Additional history exists Influenza Vaccine (FLU shot) (#1) 2024 05/14/2023, 04/13/2022, 06/13/2020, Additional history exists DXA Scan 07/29/2024 07/29/2017, 08/14, 05/07/2009, Additional history exists GFR 10/29/2024 04/28/2024, 10/14, 05/05/2023, Additional history exists CKD HGB USE SMARTSET 97816 04/28/202504/28, 04/28/2024, 10/28/2023, Additional history exists Pneumococcal [...] filedocumented as of this encounter Care Teams Php Lamp Developer Relationship Specialty Start Date End Date Arlen Frederick MD [facility] [place] [address] PCP - General Family Medicine 01/24/21 documented as of this encounter
--- OUTSIDE RECORDS SUMMARY | 2024-05-02 14:16 | External Medical Summary | Summary of Care ---
Author Name Unknown Organization [facility] Address [address] [place] [address] Phone [phone] Care Team Providers Care Power Plant Assistant Name Role Phone Arlen Frederick MD Primary Care Provider Reason for Visit * Reason Onset Date Comments Information 05/01/2024 Encounter Details Date Type Department Care Team (Late st Contact Info) Description 05/01/2024 Telephone Hematology/Oncology Treatment, [place] [address] [place] [address] Bo Castillo MD [address] [place] [address] Information Allergies Active Allergy Reactions Criticality Noted [...] Next Due H1N1 2009 Influenza, IM 09/24/2009 Pneumococcal Polysaccharide PPV23 (Pneumovax) 06/03/2009 Seasonal Influenza, Quadriva lent Hd (Fluzone Hd) 05/14/2023 Seasonal Influenza, Split, I IV3, With Preserve, Inj 06/07/2012,06/11/2011,06/04/2010,06/03,07/09/2008,07/08/2007,06/23/2006 TDAP, Age 7 and older, IM (Adacel) [...] encounter Miscellaneous Notes * Telephone Encounter - Melani Hanna RN - 05/01/2024 9:13 AM EDT Received call from Lita. She states that for about 6 weeks now her mom has been extremely exhausted, can't stay awake, weak, cold, SOB, nauseous. She has taken her to PCP and processing spec several times and they cannot figure out [...] Office Visit Hematology/Oncology [place] [address] [place] [address] Viktoriya Sosa, FAB [address] [place] [address] Health Maintenance Due Date Last Done Comments Depression Monitoring 1955 Albumin/Creatinine Ratio 1961 Diabetic Eye Exam 1961 Diabetic Foot Exam 1961 Zoster Vaccines (1 of 2) 04/17/2010 02/20/2010, 11/2009 Colonoscopy 2012 2009, 11/2005, 02/19/2005 DTaP,Tdap,and Td Vaccines (2 - Td or Tdap) 05/05/2017 05/05/2007 CKD PHOS USE SMARTSET 35457 06/20/2020 06/20/2019 HbA1c 12/02/2020 06/04/2020, 10/14, 06/21/2019, Additional history exists COVID-19 Vaccine ( season) 2023 06/05/2022, 06/19/2021, 12/06/2020, Additional history exists Influenza Vaccine (FLU shot) (#1) 2024 05/14/2023, 04/13/2022, 06/13/2020, Additional history exists DXA Scan 07/29/2024 07/29/2017, 08/14, 05/07/2009, Additional history exists GFR 10/29/2024 04/28/2024, 10/14, 05/05/2023, Additional history exists CKD HGB USE SMARTSET 37486 04/28/202504/28, 04/28/2024, 10/28/2023, Additional history exists Pneumococcal [...] filedocumented as of this encounter Care Teams Power Plant Assistant Relationship Specialty Start Date End Date Arlen Frederick MD [address] [facility] [address] [facility] [place] [address] PCP - General Family Medicine 01/24/21 documented as of this encounter
--- OUTSIDE RECORDS SUMMARY | 2024-05-02 14:16 | External Medical Summary ---
Author Name Unknown Address Unknown Organization K[facility] [address] [place] [address] Laboratory Report Ordering Provider Test Date Status KO VERMA 04/28/2024 12:55:52 Final Observation Date Value Abnormality Reference (Units ) Status Iron 04/28/2024 12:55:52 26 Below low normal 33-151 (ug/dL) Final Iron-binding capacity 04/28/2024 12:55:52 416 250-425 (ug/dL) Final Transferrin Sat % 04/28/2024 12:55:52 6 Below low normal 15-55 (%) Final Performing Location [facility] [address] [place] [address]
--- OUTSIDE RECORDS SUMMARY | 2024-05-02 14:16 | External Medical Summary ---
Author Name Unknown Address Unknown Organization K09[facility]- - [address] [place] [address] Laboratory Report Ordering Provider Test Date Status KO VERMA 04/28/2024 12:55:52 Final Observation Date Value Abnormality Reference (Units ) Status BUN 04/28/2024 12:55:52 65 Above high normal 6-20 (mg/dL) Final Creatinine 04/28/2024 12:55:52 1.8 Above high normal 0.5-1.0 (mg/dL) Final Glomerular filtration rate/1.73 sq M.predicted [Volume Rate/Area] in Serum, Plasma or Blood by Creatinine-based formula (CKD-EPI) 04/28/2024 12:55:52 28 Below low normal >=60 (mL/min) Final eGFR is calculated based on the CKD-EPI 2020 equation. Sodium 04/28/2024 12:55:52 143 135-146 (m mol/L) Final Potassium 04/28/2024 12:55:52 4.7 3.5-5.1 (m mol/L) Final Cl 04/28/2024 12:55:52 109 Above high normal 98 -107 (mmol/L) Final CO2 04/28/2024 12:55:52 19 Below low normal 22- 32 (mmol/L) Final Anion gap 04/28/2024 12:55:52 15 7-15 (mmol /L) Final Glucose 04/28/2024 12:55:52 142 Above high normal 70 -120 (mg/dL) Final Albumin 04/28/2024 12:55:52 4.0 3.8-5.0 (g /dL) Final AST (Aspartate aminotransferase) 04/28/2024 12:55:52 11 10-35 (U/L) Fin al Alk Phos 04/28/2024 12:55:52 110 35-130 (U/ L) Final Bilirubin, Total 04/28/2024 12:55:52 0.4 <=1 .2 (mg/dL) Final Calcium 04/28/2024 12:55:52 9.6 8.4-10.2 ( mg/dL) Final Protein 04/28/2024 12:55:52 6.3 6.0-8.3 (g /dL) Final ALT (Alanine aminotransferase) 04/28/2024 12:55:52 22 10-35 (U/L) Lobito goss Performing Location [facility] [address] [place] [address]
--- OUTSIDE RECORDS SUMMARY | 2024-05-02 14:16 | External Medical Summary | Summary of Care ---
Author Name Unknown Organization [facility] Address [address] [place] [address] Phone [phone] Care Team Providers Care Building Principal Name Role Phone Arlen Frederick MD Primary Care Provider Reason for Visit * Reason Comments Outpatient Testing Encounter Details Date Type Department Care Team (Late st Contact Info) Description 04/28/2024 12:50 PM EDT Laboratory Laboratory [facility] [place] [address] [place] [phone] [place], [facility] [address] [place] [address] B12 deficiency; CLL (chronic lymphocytic leukemia) ([facility]) Allergies Active Allergy Reactions Criticality Noted Date Comments Amlodipine Besylate 11/05/2004 palpitation, headache Bee Venom 04/09/2004 Penicillins 10/19/2001 Pseudoephedrine 03/25/2001 Sulfa Antibiotics 03/25/2001 documented as of this encounter (statuses as of 04/28/2024) Medications Medication Sig Dispensed Refills Start Date [...] as of this encounter (statuses as of 04/28/2024) Active Problems Problem Noted Date Diagnosed Date [...] as of this encounter (statuses as of 04/28/2024) Resolved Problems Problem Noted Date Diagnosed Date Resolved Date Syncope and collapse 07/05/2002 006 Hemoptysis 06/20/2002 04/13/2006 Overview: ICD-10 update of inactive term PURE HYPERCHOLESTEROLEM 08/13 Overview: Per Lipid Taxonomy. documented as of this encounter (statuses as of 04/28/2024) Immunizations Name Administration Dates Next Due H1N1 [...] on file documented as of this encounter Plan of Treatment Upcoming Encounters Date Type Department Care Team (Late st Contact Info) Description 06/06/2024 4:00 PM EDT Office Visit Hematology/Oncology [facility] [address] [facility] [place] [address] Viktoriya Sosa CRNP [address] [place] [address] [place] [address] Pending Results Name Type Priority Associated Diagnoses Date /Time IRON SCREEN, INCLUDING TIBC Lab Routine B12 deficiency CLL (chronic lymphocytic leukemia) ([facility]) 04/28/2024 12:55 PM EDT VITAMIN B12 Lab Routine B12 deficiency CLL (chronic lymphocytic leukemia) ([facility]) 04/28/2024 12:55 PM EDT FERRITIN Lab Routine B12 deficiency CLL (chronic lymphocytic leukemia) ([facility]) 04/28/2024 12:55 PM EDT Health Maintenance Due Date Last Done Comments Depression Monitoring 1955 Albumin/Creatinine Ratio 1961 Diabetic Eye Exam 1961 Diabetic Foot Exam 1961 Zoster Vaccines (1 of 2) 04/17/2010 02/20/2010, 11/2009 Colonoscopy 2012 2009, 11/2005, 02/19/2005 DTaP,Tdap,and Td Vaccines (2 - Td or Tdap) 05/05/2017 05/05/2007 CKD PHOS USE SMARTSET 89403 06/20/2020 06/20/2019 HbA1c 12/02/2020 06/04/2020, 10/14, 06/21/2019, Additional history exists COVID-19 Vaccine ( season) 2023 06/05/2022, 06/19/2021, 12/06/2020, Additional history exists GFR 04/27/2024 10/28/2023, 04/14, 11/05/2022, Additional history exists Influenza Vaccine (FLU shot) (#1) 2024 05/14/2023, 04/13/2022, 06/13/2020, Additional history exists DXA Scan 07/29/2024 07/29/2017, 08/14, 05/07/2009, Additional history exists CKD HGB USE SMARTSET 90107 04/28/202504/28, 04/28/2024, 10/28/2023, Additional history exists Pneumococcal [...] Not on filedocumented as of this encounter Procedures Procedure Name Priority Date/Time Associated Diagnosis Comments DIFFERENTIAL, AUTOMATED STAT 04/28/2024 12:55 PM EDT B12 deficiency CLL (chronic lymphocytic leukemia) (HCC) CBC STAT 04/28/2024 12:55 PM EDT B12 deficiency CLL (chronic lymphocytic leukemia) (HCC) CBC STAT 04/28/2024 12:55 PM EDT B12 deficiency CLL (chronic lymphocytic leukemia) (HCC) documented in this encounter Results * (ABNORMAL) DIFFERENTIAL, AUTOMATED (04/28/2024 12:55 PM EDT) WBC 12.44(H) 4.00 - 10.80 K/uL 04/28/2024 1:00 PM EDT [facility] 56-02 Neutrophils % 52.0 40.0 - 75.0 % 04/28/2024 1:00 PM EDT [facility] 56-02 Lymphocytes % 39.3 18.0 - 42.0 % 04/28/2024 1:00 PM EDT [facility] 56-02 Monocytes % 5.9 1.0 - 11.0 % 04/28/2024 1:00 PM EDT [facility] 56-02 Eosinophils % 2.6 0.0 - 6.0 % 04/28/2024 1:00 PM EDT [facility] 56-02 Basophils % 0.2 0.0 - 2.0 % 04/28/2024 1:00 PM EDT [facility] 56-02 Absolute Neutrophils 6.48 1.80 - 7.70 K/uL 04/28/2024 1:00 PM EDT [facility] 56-02 Absolute Lymphocytes 4.89(H) 1.00 - 4.80 K/ul 04/28/2024 1:00 PM EDT [facility] 56-02 Absolute Monocytes 0.73 0.00 - 1.10 K/uL 04/28/2024 1:00 PM EDT [facility] 56-02 Absolute Eosinophils 0.32 0.00 - 0.70 K/uL 04/28/2024 1:00 PM EDT [facility] 56-02 Absolute Basophils 0.02 0.00 - 0.20 K/uL 04/28/2024 1:00 PM EDT [facility] 56-02 Blood Venous blood specimen / Unknown Venipuncture / Unknown 04/28/2024 12:55 PM EDT 04/28/2024 12:55 PM EDT Bo Castillo MD LAB BLOOD ORDERABLES [facility] [address] [place] [address] * (ABNORMAL) CBC (04/28/2024 12:55 PM EDT) WBC 12.44(H) 4.00 - 10.80 K/uL 04/28/2024 1:00 PM EDT [facility] 56 RBC 3.07 3.85 - 5.15 M/uL 04/28/2024 1:00 PM EDT [facility] HGB 9.7(L) 12.0 - 15.3 g/dL 04/28/2024 1:00 PM EDT [facility] 56 HCT 31.5(L) 36.0 - 45.2 % 04/28/2024 1:00 PM EDT [facility] 56 MCV 102.6 81.5 - 97.5 fL 04/28/2024 1:00 PM EDT [facility] 56 MCH 31.6 27.0 - 34.0 pg 04/28/2024 1:00 PM EDT [facility] 56 MCHC 30.8 32.0 - 36.0 g/dL 04/28/2024 1:00 PM EDT [facility] 56 RDW 15.2 11.5 - 15.5 % 04/28/2024 1:00 PM EDT [facility] 56 PLT 232 140 - 400 K/uL 04/28/2024 1:00 PM EDT [facility] 56 MPV 8.8 6.6 - 11.1 fL 04/28/2024 1:00 PM EDT [facility] 56 Blood Venous blood specimen / Unknown Venipuncture / Unknown 04/28/2024 12:55 PM EDT 04/28/2024 12:55 PM EDT Bo Castillo MD LAB BLOOD ORDERABLES [facility] [address] [place] [address] documented in this encounter Visit Diagnoses Diagnosis B12 deficiency Other B-complex deficiencies CLL (chronic lymphocytic leukemia) (HCC) Chronic lymphoid leukemia, without mention of having achieved remission documented in this encounter Care Teams Building Principal Relationship Specialty Start Date End Date Arlen Frederick MD [address] [facility] [place] [address] PCP - General Family Medicine 01/24/21 documented as of this encounter
--- OUTSIDE RECORDS SUMMARY | 2024-05-02 14:16 | External Medical Summary ---
Author Name Unknown Address Unknown Organization K09:[facility] [place] [address] Laboratory Report Ordering Provider Test Date Status KO VERMA 04/28/2024 12:55:52 Final Observation Date Value Abnormality Reference (Units ) Status WBC, Total 04/28/2024 12:55:52 12.44 Above high normal 4 .00-10.80 (K/uL) Final RBC 04/28/2024 12:55:52 3.07 3.85-5.15 (M/uL) Final Hemoglobin 04/28/2024 12:55:52 9.7 Below low normal 12 .0-15.3 (g/dL) Final HCT 04/28/2024 12:55:52 31.5 Below low normal 36. 0-45.2 (%) Final MCV 04/28/2024 12:55:52 102.6 81.5-97.5 (fL) Final MCH 04/28/2024 12:55:52 31.6 27.0-34.0 (pg) Final MCHC 04/28/2024 12:55:52 30.8 32.0-36.0 (g/dL) Final RDW 04/28/2024 12:55:52 15.2 11.5-15.5 (%) Final Platelets 04/28/2024 12:55:52 232 140-400 (K /uL) Final MPV 04/28/2024 12:55:52 8.8 6.6-11.1 ( fL) Final Performing Location [facility] [place] [address]
[2024-05-02] MEDS: FUROSEMIDE INJ 20 MG/2 ML VIAL IV ONE (14:36)
--- NOTE | 2024-05-02 14:45 | Electrocardiogram Report ---
Test Reason : Blood Pressure : */* mmHG Vent. Rate : 73 BPM Atrial Rate : 73 BPM P-R Int : 244 ms QRS Dur : 100 ms QT Int : 434 ms P-R-T Axes : 57 61 57 degrees QTcB Int : 478 ms Sinus rhythm with 1st degree A-V block Left atrial enlargement Possible Anterior infarct , age undetermined Abnormal ECG When compared with ECG of 12-Feb-2024 11:56, Criteria for Inferior infarct no longer present Criteria for Anterior infarct now present Confirmed by Khai Truong ([id number]) on 05/02/2024 2:45:15 PM Referred By: REFERRED SELF Confirmed By: Khai Truong
[2024-05-02 14:54] LABS: Ferritin 36.4 ng/ml (8-388)
[2024-05-02 15:00] LABS: Folate (Folic Acid),Ser orPlas > 22.30 ng/ml (>5.38)
[2024-05-02 15:01] LABS: Vitamin B12 1232 pg/ml (180-914)
--- NOTE | 2024-05-02 16:48 | XCELERA ---
[id number] \\[id number]\[id number]
[2024-05-02] MEDS: carvediloL 3.125 MG TAB PO SCH (17:09)
[2024-05-02] MEDS: FEXOFENADINE HCL 180 MG TAB PO SCH (17:09)
[2024-05-02] MEDS: FUROSEMIDE INJ 20 MG/2 ML VIAL IV SCH (17:59)
[2024-05-02] MEDS: INSULIN ASPART PER UNIT CHARGE SC SCH (18:04)
[2024-05-02] MEDS: APIXABAN 2.5 MG TAB PO SCH (20:55)
[2024-05-02] MEDS: VALSARTAN/SACUBITRIL 103/97MG TAB PO SCH (20:55)
[2024-05-02] MEDS: ATORVASTATIN 40 MG TAB PO SCH (20:55)
[2024-05-02] MEDS ORDERED: HEPARIN SOD 5,000 UNIT/0.5 ML VIAL SQ SCH (21:00)
--- NOTE | 2024-05-03 01:35 | Magnetic Resonance Report ---
Exam(s): MRI HEAD Without Contrast EXAM: MR Head Without Intravenous Contrast CLINICAL HISTORY: Reason for exam: 1.8 cm extra-axial lesion along the left convexity. TECHNIQUE: Magnetic resonance images of the head/brain without intravenous contrast in multiple planes. COMPARISON: 05/02/2024 FINDINGS: Brain: Focal area of restricted diffusion overlying the high left frontal lobe best appreciated on axial image 18 series 4 T2/flair signal hyperintensity consistent with moderate ischemic microangiopathy. No hemorrhage. Ventricles: Unremarkable. No ventriculomegaly. Bones/joints: Unremarkable. No acute fracture. Sinuses: Unremarkable as visualized. No acute sinusitis. Mastoid air cells: Unremarkable as visualized. No mastoid effusion. Orbits: Unremarkable as visualized. IMPRESSION: No acute infarct Left frontal lobe meningioma Electronically signed by: Jairon Randall MD 05/03/24 01:35 AM
[2024-05-03 06:44] LABS: Basophils # (auto) 0.05 K/uL (0.00-0.20); Basophils % (auto) 0.4 %; Eosinophils # (auto) 0.31 K/uL (0.00-0.50); Eosinophils % (auto) 2.8 %; Hematocrit (blood only) 28.5 % (37.0-47.0); Hemoglobin 8.9 g/dl (12.0-16.0); Immature Granulocytes # (auto) 0.03 K/uL (0.01-0.20); Immature Granulocytes % (auto) 0.3 %; Lymphocytes # (auto) 4.17 K/uL (1.20-3.40); Lymphocytes % (auto) 37.4 %; Mean Corpuscular Hemoglobin 30.7 pg (25.0-34.0); Mean Corpuscular Hgb Conc 31.2 g/dL (32.0-36.0); Mean Corpuscular Volume 98.3 fL (80.0-100.0); Monocytes # (auto) 0.81 K/uL (0.11-0.59); Monocytes % (auto) 7.3 %; Neutrophils # (auto) 5.79 K/uL (1.40-6.50); Neutrophils % (auto) 51.8 %; Platelet Count 217 K/uL (130-400); RDW Coefficient of Variation 14.8 % (11.5-14.5); RDW Standard Deviation 54.2 fL (36.4-46.3); White Blood Count 11.16 K/ul (4.8-10.8)
[2024-05-03 06:53] LABS: Albumin Globulin Ratio 1.6 (0.9-2); Albumin Level 3.7 gm/dl (3.4-5.0); Bilirubin,Total 0.6 mg/dl (0.2-1.0); Calcium 8.9 mg/dl (8.6-10.3); Creatinine Clr Calc Pharmacy 27.4 ml/min; Est GFR (African American) 29.1 ml/min; Est GFR (Non-African American) 25.1 ml/min; Globulin 2.3 gm/dl (2.5-4.0); Potassium 4.9 mmol/L (3.5-5.1)
[2024-05-03 07:08] LABS: INR 1.2 (0.9-1.1); Prothrombin Time 12.4 Seconds (9.0-12.0)
[2024-05-03] MEDS: SERTRALINE HCL 100 MG TABLET PO SCH (09:07)
[2024-05-03] MEDS: CLOPIDOGREL BISULFATE 75 MG TAB PO SCH (09:07)
[2024-05-03] MEDS: PANTOprazole 40 MG TAB PO SCH (09:07)
[2024-05-03] MEDS: AMIODARONE 200 MG TAB PO SCH (09:08)
[2024-05-03] MEDS: IRON SUCROSE 200 MG in 0.9 % SODIUM CHLORIDE 100 ML IV ONE (10:01)
[2024-05-03] MEDS: FUROSEMIDE 40 MG/4 ML VIAL IV SCH (10:11)
--- NOTE | 2024-05-03 14:58 | Hospitalist Progress Note ---
Date of Service May 03, 2024 Assessment & Plan (1) Acute on chronic systolic (congestive) heart failure: Plan: Telemetry. Parenteral Lasix diuresis. Monitor intake and output. Serial chest x-ray (2) Demand ischemia: Plan: Troponin mildly elevated without chest pain or acute EKG changes. No evidence of acute coronary syndrome (3) Weakness: Plan: OT and PT while hospitalized. Treat underlying CHF Admit to med/tele on pulse oximetry (4) CAD (coronary artery disease): Plan: Stable. Continue current medical manage. No evidence of acute coronary syndrome (5) CLL (chronic lymphocytic leukemia): Plan: Stable. Serial labs. Outpatient oncology follow-up as scheduled (6) Diabetes mellitus, type 2: Plan: ADA diet. Sliding scale coverage. No basal insulin at this time (7) PAF (paroxysmal atrial fibrillation): Plan: Currently in normal sinus rhythm. Continue current medical management with Eliquis, amiodarone, carvedilol (8) Ischemic cardiomyopathy: Plan: Stable. Continue current medical management. Hold spironolactone while on IV Lasix Plan Hopeful discharge to SNF or rehab within the next 48 to 72 hours Admission and Anticipated Discharge Date Admission Date: May 02, 2024 Subjective Alert. She appears to have acute on chronic systolic congestive heart failure again and is now on intravenous Lasix. She also has evidence of iron deficiency anemia and intravenous Venofer has been started. She is requiring supplemental oxygen at 3 L/min per nasal cannula for acute hypoxic respiratory failure. Troponin is mildly elevated but no evidence of acute coronary syndrome. I spoke to her daughter, Lita Prater, by phone. It appears that she will need placement at the time of discharge. Her daughter states that the patient is now agreeable to placement Review of Systems 2 Review of Systems: Constitutionalno fever or chills ENTno blurred vision, no double vision, no epistaxis, no sore throat Respiratoryno cough, no wheezing. Shortness of breath with minimal exertion Cardiacno palpitations, no chest pain, no syncope Humble nausea, vomiting, diarrhea, melena, hematochezia GUno urinary retention, no urinary incontinence, no dysuria, no hematuria Musculoskeletalno joint pain, no muscle tenderness Skinno bruising, no rashes, no pruritus Neurono isolated weakness, no paresthesia. Generalized weakness with frequent falls Psychno depression, no anxiety Physical Exam 2 Physical Exam: General-alert. No fever HEENT-head atraumatic and normocephalic, pupils equal and reactive to light, extraocular muscles intact Neck-no lymphadenopathy or thyromegaly, trachea midline Chest-bibasilar inspiratory rales. No wheezing. No rhonchi Cardiac-regular rate and rhythm, normal S1 and S2 Abdomen-normal bowel sounds, no hepatosplenomegaly [id number]-4-6+ pitting edema bilateral lower extremities below the knees Neuro-cranial nerves II through XII intact, motor and sensory function within normal limits, strength symmetrical with generalized weakness, no focal deficits Psych-normal affect, normal mood Results & Data Results & Data Vital Signs (Past 12 Hours) Vital Signs Temp Pulse Pulse Resp BP Pulse Ox O2 Del Method 05/03/24 12:09 36.3 C L 62 16 132/77 98 Nasal Cannula 05/03/24 08:12 36.8 C 73 18 139/87 98 Nasal Cannula 05/03/24 07:41 55 L 05/03/24 02:57 36.4 C L 59 L 16 125/81 99 Nasal Cannula O2 Flow Rate 05/03/24 12:09 3 05/03/24 08:12 3 05/03/24 07:41 05/03/24 02:57 2 Laboratory Results 05/03/24 05:32 05/03/24 05:32 PG Care Time/CCT Total # of Minutes Spent Total Time Spent with Patient: Total time spent is greater than 50% in coordination of care (as documented) at patient's floor/unit and/or counseling patient: Coding Level of Care Code 13970 SUB INP/OBS CARE 3/50MIN Diagnoses Acute on chronic systolic (congestive) heart failure I50.23 Demand ischemia I24.89 Weakness R53.1 CAD (coronary artery disease) I25.10 CLL (chronic lymphocytic leukemia) C91.90 Diabetes mellitus, type 2 E11.9 PAF (paroxysmal atrial fibrillation) I48.0 Ischemic cardiomyopathy I25.5
[2024-05-03] MEDS: FUROSEMIDE INJ 20 MG/2 ML VIAL IV SCH (18:54)
[2024-05-04 06:23] LABS: Hematocrit (blood only) 28.1 % (37.0-47.0); Mean Corpuscular Hemoglobin 30.9 pg (25.0-34.0); Mean Corpuscular Volume 96.6 fL (80.0-100.0); Mean Platelet Volume 9.5 fL (9.4-12.4); Platelet Count 228 K/uL (130-400); RDW Coefficient of Variation 14.7 % (11.5-14.5); RDW Standard Deviation 52.8 fL (36.4-46.3); Red Blood Count 2.91 M/uL (4.20-5.40); White Blood Count 12.36 K/ul (4.8-10.8)
[2024-05-04 06:43] LABS: BUN Creatinine Ratio 29.3 (10-20); Calcium 8.7 mg/dl (8.6-10.3); Creatinine Clr Calc Pharmacy 24.9 ml/min; Est GFR (African American) 25.9 ml/min; Est GFR (Non-African American) 22.3 ml/min; Potassium 4.6 mmol/L (3.5-5.1)
[2024-05-04 07:18] LABS: Basophils # (auto) 0.07 K/uL (0.00-0.20); Basophils % (auto) 0.6 %; Eosinophils # (auto) 0.44 K/uL (0.00-0.50); Eosinophils % (auto) 3.6 %; Immature Granulocytes # (auto) 0.04 K/uL (0.01-0.20); Immature Granulocytes % (auto) 0.3 %; Lymphocytes % (auto) 42.9 %; Monocytes # (auto) 0.86 K/uL (0.11-0.59); Neutrophils # (auto) 5.65 K/uL (1.40-6.50); Neutrophils % (auto) 45.6 %
--- NOTE | 2024-05-04 07:30 | XRay Report ---
XR chest 1V portable CLINICAL HISTORY: CHF TECHNIQUE: Single frontal radiograph of the chest was obtained. Comparison: Comparison is made to chest radiograph 05/02/2024 FINDINGS: No lines and tubes are seen. Cardiomegaly is noted. The aortic arch is calcified. Prominence and ceph alization of the vasculature is seen. Small bilateral pleural effusions are seen. IMPRESSION: 1. Cardiomegaly and mild pulmonary edema. 2. Small bilateral pleural effusions. ACT 112: Negative or not required by law. Electronically signed by: Emre Dennis M.D. 05/04/2024 7:29 AM
[2024-05-04] MEDS: CALCIUM CARBONATE 500 MG CHEWABLE TAB PO PRN (10:30)
[2024-05-04] MEDS: FUROSEMIDE 40 MG/4 ML VIAL IV SCH (10:30)
[2024-05-04] MEDS: ACETAMINOPHEN 500 MG TAB PO PRN (10:41)
[2024-05-04] MEDS: metOLazone 5 MG TABLET PO ONE (10:42)
[2024-05-04] MEDS: IRON SUCROSE 200 MG in 0.9 % SODIUM CHLORIDE 100 ML IV ONE (14:53)
--- NOTE | 2024-05-04 15:00 | Hospitalist Progress Note ---
Date of Service May 04, 2024 Assessment & Plan (1) Acute on chronic systolic (congestive) heart failure: Plan: Telemetry. Parenteral Lasix dosage was uptitrated today, May 04. Metolazone x 1 today. Monitor intake and output. Chest x-ray done today, May 04, looked about the same (2) Demand ischemia: Plan: Troponin mildly elevated without chest pain or acute EKG changes. No evidence of acute coronary syndrome (3) Weakness: Plan: OT and PT while hospitalized. Treat underlying CHF (4) CAD (coronary artery disease): Plan: Stable. Continue current medical manage. No evidence of acute coronary syndrome (5) CLL (chronic lymphocytic leukemia): Plan: Stable. Serial labs. Outpatient oncology follow-up as scheduled (6) Diabetes mellitus, type 2: Plan: ADA diet. Sliding scale coverage. No basal insulin at this time (7) PAF (paroxysmal atrial fibrillation): Plan: Currently in normal sinus rhythm. Continue current medical management with Eliquis, amiodarone, carvedilol (8) Ischemic cardiomyopathy: Plan: Stable. Continue current medical management. Hold spironolactone while on IV Lasix Plan [facility]ful discharge to [facility] within the next 48 to 72 hours Admission and Anticipated Discharge Date Admission Date: May 02, 2024 Subjective Awake and alert. No significant diuresis yesterday. Lasix dosage uptitrated and will administer 1 dose of metolazone today, May 04. Day 2 of parenteral Venofer therapy for iron deficiency. Hopefully she will be discharged to [facility] within the next 48 to 72 hours. She needs to participate with physical therapy so evaluations can be turned in to insurance for SNF approval. Review of Systems 2 Review of Systems: Constitutionalno fever or chills ENTno blurred vision, no double vision, no epistaxis, no sore throat Respiratoryno cough, no wheezing. Shortness of breath with minimal exertion Cardiacno palpitations, no chest pain, no syncope Humble nausea, vomiting, diarrhea, melena, hematochezia GUno urinary retention, no urinary incontinence, no dysuria, no hematuria Musculoskeletalno joint pain, no muscle tenderness Skinno bruising, no rashes, no pruritus Neurono isolated weakness, no paresthesia. Generalized weakness with frequent falls Psychno depression, no anxiety Physical Exam 2 Physical Exam: General-alert. No fever HEENT-head atraumatic and normocephalic, pupils equal and reactive to light, extraocular muscles intact Neck-no lymphadenopathy or thyromegaly, trachea midline Chest-bibasilar inspiratory rales. No wheezing. No rhonchi Cardiac-regular rate and rhythm, normal S1 and S2 Abdomen-normal bowel sounds, no hepatosplenomegaly Zyldwlqcmev-7-7+ pitting edema bilateral lower extremities below the knees Neuro-cranial nerves II through XII intact, motor and sensory function within normal limits, strength symmetrical with generalized weakness, no focal deficits Psych-normal affect, normal mood Results & Data Results & Data Vital Signs (Past 12 Hours) Vital Signs Temp Pulse Pulse Resp BP Pulse Ox O2 Del Method 05/04/24 12:03 36.5 C 99 H 16 101/61 100 Nasal Cannula 05/04/24 10:30 Nasal Cannula 05/04/24 08:00 52 L 05/04/24 08:00 36.4 C L 55 L 18 109/71 95 Nasal Cannula 05/04/24 03:26 36.6 C 57 L 18 120/66 99 Nasal Cannula O2 Flow Rate 05/04/24 12:03 3.5 05/04/24 10:30 3.5 05/04/24 08:00 05/04/24 08:00 3.5 05/04/24 03:26 2 Laboratory Results 05/04/24 06:00 05/04/24 06:00 PG Care Time/CCT Total # of Minutes Spent Total Time Spent with Patient: Total time spent is greater than 50% in coordination of care (as documented) at patient's floor/unit and/or counseling patient: Coding Level of Care Code 09101 SUB INP/OBS CARE 3/50MIN Diagnoses Acute on chronic systolic (congestive) heart failure I50.23 Demand ischemia I24.89 Weakness R53.1 CAD (coronary artery disease) I25.10 CLL (chronic lymphocytic leukemia) C91.90 Diabetes mellitus, type 2 E11.9 PAF (paroxysmal atrial fibrillation) I48.0 Ischemic cardiomyopathy I25.5
[2024-05-04] MEDS: bisacodyL 5 MG TABEC PO PRN (17:51)
[2024-05-05 06:24] LABS: Basophils # (auto) 0.06 K/uL (0.00-0.20); Basophils % (auto) 0.4 %; Eosinophils # (auto) 0.47 K/uL (0.00-0.50); Eosinophils % (auto) 3.5 %; Hematocrit (blood only) 31.4 % (37.0-47.0); Hemoglobin 9.9 g/dl (12.0-16.0); Immature Granulocytes # (auto) 0.06 K/uL (0.01-0.20); Immature Granulocytes % (auto) 0.4 %; Lymphocytes # (auto) 4.83 K/uL (1.20-3.40); Lymphocytes % (auto) 35.7 %; Mean Corpuscular Hemoglobin 30.4 pg (25.0-34.0); Mean Corpuscular Hgb Conc 31.5 g/dL (32.0-36.0); Mean Corpuscular Volume 96.3 fL (80.0-100.0); Mean Platelet Volume 9.8 fL (9.4-12.4); Monocytes # (auto) 1.04 K/uL (0.11-0.59); Monocytes % (auto) 7.7 %; Neutrophils # (auto) 7.06 K/uL (1.40-6.50); Neutrophils % (auto) 52.3 %; Platelet Count 240 K/uL (130-400); RDW Coefficient of Variation 14.7 % (11.5-14.5); RDW Standard Deviation 51.2 fL (36.4-46.3); Red Blood Count 3.26 M/uL (4.20-5.40); White Blood Count 13.52 K/ul (4.8-10.8)
[2024-05-05 06:58] LABS: Calcium 8.9 mg/dl (8.6-10.3); Potassium 4.3 mmol/L (3.5-5.1)
[2024-05-05 07:03] LABS: BUN Creatinine Ratio 28.9 (10-20); Est GFR (African American) 20.1 ml/min; Est GFR (Non-African American) 17.3 ml/min
[2024-05-05] MEDS: VALSARTAN/SACUBITRIL 51/49 MG TAB PO SCH (09:19)
[2024-05-05] MEDS: IRON SUCROSE 200 MG in 0.9 % SODIUM CHLORIDE 100 ML IV ONE (11:46)
--- NOTE | 2024-05-05 14:38 | Hospitalist Progress Note ---
Date of Service May 05, 2024 Assessment & Plan (1) Acute on chronic systolic (congestive) heart failure: Plan: Telemetry. Parenteral Lasix dosage was uptitrated on May 04. Metolazone was also administered on May 04. Brisk diuresis ensued. Monitor intake and output. Chest x-ray done on May 04 looked about the same. Will repeat chest x-ray again tomorrow, May 06 (2) Demand ischemia: Plan: Troponin mildly elevated without chest pain or acute EKG changes. No evidence of acute coronary syndrome (3) Weakness: Plan: OT and PT while hospitalized. Treat underlying CHF (4) CAD (coronary artery disease): Plan: Stable. Continue current medical manage. No evidence of acute coronary syndrome (5) CLL (chronic lymphocytic leukemia): Plan: Stable. Serial labs. Outpatient oncology follow-up as scheduled. She is receiving parenteral iron replacement while hospitalized. Currently Venofer day 3 of 3 (6) Diabetes mellitus, type 2: Plan: ADA diet. Sliding scale coverage. No basal insulin at this time (7) PAF (paroxysmal atrial fibrillation): Plan: Currently in normal sinus rhythm. Continue current medical management with Eliquis, amiodarone, carvedilol (8) Ischemic cardiomyopathy: Plan: Stable. Continue current medical management. Hold spironolactone while on IV Lasix (9) Chronic kidney disease, stage IV (severe): Plan: Unfortunately, creatinine is rising with diuresis. Currently 2.5. Entresto may need to be discontinued due to ARB component. Entresto dosage was down titrated on May 04. Plan [facility]ful discharge to [facility] on Wednesday. Admission and Anticipated Discharge Date Admission Date: May 02, 2024 Subjective She is feeling weak and washed out from diuresis. However she is alert and without complaint. She feels weak but only physical therapy will resolved and her strength returning. She remains on parenteral iron replacement, day 3. Will repeat chest x-ray again tomorrow, May 06. Unfortunately, her creatinine is increasing with diuresis as expected. Now up to 2.5. Will follow. Entresto dosage decreased yesterday, May 04, due to low blood pressure. She is now on room air. Review of Systems 2 Review of Systems: Constitutionalno fever or chills. Feeling weak and washed out ENTno blurred vision, no double vision, no epistaxis, no sore throat Respiratoryno cough, no wheezing. Shortness of breath with minimal exertion Cardiacno palpitations, no chest pain, no syncope Humble nausea, vomiting, diarrhea, melena, hematochezia GUno urinary retention, no urinary incontinence, no dysuria, no hematuria Musculoskeletalno joint pain, no muscle tenderness Skinno bruising, no rashes, no pruritus. She looks pale Neurono isolated weakness, no paresthesia. Generalized weakness with frequent falls Psychno depression, no anxiety Physical Exam 2 Physical Exam: General-alert. Oriented. No fever HEENT-head atraumatic and normocephalic, pupils equal and reactive to light, extraocular muscles intact Neck-no lymphadenopathy or thyromegaly, trachea midline Chest-bibasilar inspiratory rales. No wheezing. No rhonchi Cardiac-regular rate and rhythm, normal S1 and S2 Abdomen-normal bowel sounds, no hepatosplenomegaly Qfbcvevnidv-0-1+ pitting edema bilateral lower extremities below the knees has lessened Neuro-cranial nerves II through XII intact, motor and sensory function within normal limits, strength symmetrical with generalized weakness, no focal deficits Psych-normal affect, normal mood Results & Data Results & Data Vital Signs (Past 12 Hours) Vital Signs Temp Pulse Resp BP Pulse Ox O2 Del Method 05/05/24 07:20 36.4 C L 113 H 18 120/75 90 Room Air 05/05/24 03:38 72 18 119/72 94 Room Air 05/05/24 03:04 36.5 C 111 H 18 94/64 L 92 Room Air Laboratory Results 05/05/24 05:44 05/05/24 05:44 PG Care Time/CCT Total # of Minutes Spent Total Time Spent with Patient: Total time spent is greater than 50% in coordination of care (as documented) at patient's floor/unit and/or counseling patient: Coding Level of Care Code 76028 SUB INP/OBS CARE 3/50MIN Diagnoses Acute on chronic systolic (congestive) heart failure I50.23 Demand ischemia I24.89 Weakness R53.1 CAD (coronary artery disease) I25.10 CLL (chronic lymphocytic leukemia) C91.90 Diabetes mellitus, type 2 E11.9 PAF (paroxysmal atrial fibrillation) I48.0 Ischemic cardiomyopathy I25.5 Chronic kidney disease, stage IV (severe) N18.4
[2024-05-06 06:02] LABS: Creatinine Clr Calc Pharmacy 17.5 ml/min; Est GFR (Non-African American) 14.7 ml/min; Potassium 3.8 mmol/L (3.5-5.1)
--- NOTE | 2024-05-06 07:39 | XRay Report ---
SINGLE VIEW CHEST CLINICAL HISTORY: Congestive heart failure FINDINGS: An AP, portable, upright chest radiograph is compared to study dated 05/04/2024 and correlat ed with chest CT dated 02/12/2024. The heart is enlarged noting atherosclerotic calcification of the th oracic aorta. The pulmonary vasculature is noncongested. Chronic interstitial thickening is similar t o previous. Scarring/atelectasis is noted at the lung bases. No airspace consolidation or large pleur al effusion is identified. No pneumothorax is seen. The skeletal structures are osteopenic. The bony thorax is grossly intact. Severe arthritic changes seen in the left shoulder. Degenerative change and scoliosis is seen in the spine. IMPRESSION: 1. Cardiomegaly without radiographic evidence of congestive failure. 2. Chronic interstitial thickening with no airspace consolidation or large pleural effusion identifie d. ACT 112: Negative or not required by law. Electronically signed by: Piter Joy M.D. 05/06/2024 7:37 AM
[2024-05-06] MEDS: FUROSEMIDE 80 MG TAB PO SCH (10:18)
[2024-05-06] MEDS: SPIRONOLACTONE 25 MG TAB PO SCH (10:18)
--- NOTE | 2024-05-06 12:24 | Hospitalist Progress Note ---
Date of Service May 06, 2024 Assessment & Plan (1) Acute on chronic systolic (congestive) heart failure: Plan: Telemetry. Parenteral Lasix has been switched back to oral dosing today, May 06, at 80 mg daily. She was only taking 20 mg daily previously which is obviously not enough considering her chronic kidney disease. Metolazone was also administered once on May 04. Brisk diuresis ensued. Monitor intake and output. Chest x-ray done on again today, May 06, looks better to me. (2) Demand ischemia: Plan: Troponin mildly elevated without chest pain or acute EKG changes. No evidence of acute coronary syndrome (3) Weakness: Plan: OT and PT while hospitalized. Treat underlying CHF (4) CAD (coronary artery disease): Plan: Stable. Continue current medical manage. No evidence of acute coronary syndrome (5) CLL (chronic lymphocytic leukemia): Plan: Stable. Serial labs. Outpatient oncology follow-up as scheduled. She is receiving parenteral iron replacement while hospitalized. Currently Venofer day 3 of 3 (6) Diabetes mellitus, type 2: Plan: ADA diet. Sliding scale coverage. No basal insulin at this time (7) PAF (paroxysmal atrial fibrillation): Plan: Currently in normal sinus rhythm. Continue current medical management with Eliquis, amiodarone, carvedilol (8) Ischemic cardiomyopathy: Plan: Stable. Continue current medical management. Hold spironolactone while on IV Lasix (9) Chronic kidney disease, stage IV (severe): Plan: Unfortunately, creatinine has risen with diuresis. Now up to 2.9. Entresto has been discontinued to eliminate the ARB. The dosage was previously down titrated on May 04 but will be discontinued today, May 06. Spironolactone has been restarted. Potassium and renal function will need to be monitored closely Plan [facility]ful discharge to [facility] on Wednesday. Admission and Anticipated Discharge Date Admission Date: May 02, 2024 Subjective Alert and oriented. I explained to her the need to stop the Entresto due to her chronic kidney disease. She understands. Spironolactone has been restarted. Intravenous Lasix has been switched to oral dosing at a higher dose than her usual 20 mg daily. Her chest x-ray done today, May 06, looks better to me. Creatinine has continued to trend upward to 2.9. She has completed her parenteral Venofer series of 3 days. Intake and output is negative for another 800 cc. Hopefully she can go to [facility] on May 08. I will try to reach her daughter, Lita would today, and bring her up-to-date Review of Systems 2 Review of Systems: Constitutionalno fever or chills. Feeling weak and washed out ENTno blurred vision, no double vision, no epistaxis, no sore throat Respiratoryno cough, no wheezing. Shortness of breath with minimal exertion Cardiacno palpitations, no chest pain, no syncope Humble nausea, vomiting, diarrhea, melena, hematochezia GUno urinary retention, no urinary incontinence, no dysuria, no hematuria Musculoskeletalno joint pain, no muscle tenderness Skinno bruising, no rashes, no pruritus. She looks pale Neurono isolated weakness, no paresthesia. Generalized weakness with frequent falls Psychno depression, no anxiety Physical Exam 2 Physical Exam: General-alert. Oriented. No fever HEENT-head atraumatic and normocephalic, pupils equal and reactive to light, extraocular muscles intact Neck-no lymphadenopathy or thyromegaly, trachea midline Chest-bibasilar inspiratory rales. No wheezing. No rhonchi Cardiac-regular rate and rhythm, normal S1 and S2 Abdomen-normal bowel sounds, no hepatosplenomegaly Hzvniktwwru-1-3+ pitting edema bilateral lower extremities below the knees has lessened Neuro-cranial nerves II through XII intact, motor and sensory function within normal limits, strength symmetrical with generalized weakness, no focal deficits Psych-normal affect, normal mood Results & Data Results & Data Vital Signs (Past 12 Hours) Vital Signs Temp Pulse Pulse Resp BP Pulse Ox Pulse Ox 05/06/24 10:09 05/06/24 09:56 92 05/06/24 07:58 36.7 C 98 H 18 108/83 92 05/06/24 05:45 107 H 05/06/24 03:11 36.4 C L 99 H 20 96/64 L 95 O2 Del Method O2 Del Method 05/06/24 10:09 Room Air 05/06/24 09:56 Room Air 05/06/24 07:58 Room Air 05/06/24 05:45 05/06/24 03:11 Room Air Laboratory Results 05/05/24 05:44 05/06/24 05:17 PG Care Time/CCT Total # of Minutes Spent Total Time Spent with Patient: Total time spent is greater than 50% in coordination of care (as documented) at patient's floor/unit and/or counseling patient: Coding Level of Care Code 31873 SUB INP/OBS CARE 3/50MIN Diagnoses Acute on chronic systolic (congestive) heart failure I50.23 Demand ischemia I24.89 Weakness R53.1 CAD (coronary artery disease) I25.10 CLL (chronic lymphocytic leukemia) C91.90 Diabetes mellitus, type 2 E11.9 PAF (paroxysmal atrial fibrillation) I48.0 Ischemic cardiomyopathy I25.5 Chronic kidney disease, stage IV (severe) N18.4
[2024-05-07 10:57] LABS: BUN Creatinine Ratio 33.3 (10-20); Calcium 9.2 mg/dl (8.6-10.3); Creatinine Clr Calc Pharmacy 18.6 ml/min; Est GFR (African American) 18.5 ml/min; Potassium 3.5 mmol/L (3.5-5.1)
--- NOTE | 2024-05-07 15:02 | Hospitalist Progress Note ---
Date of Service May 07, 2024 Assessment & Plan (1) Acute on chronic systolic (congestive) heart failure: Plan: Telemetry. Parenteral Lasix has been switched back to oral dosing on May 06 at 80 mg daily. She was only taking 20 mg daily previously which is obviously not enough considering her chronic kidney disease. Metolazone was also administered once on May 04. Brisk diuresis ensued. Monitor intake and output. Chest x-ray will be repeated again tomorrow, May 08 (2) Demand ischemia: Plan: Troponin mildly elevated without chest pain or acute EKG changes. No evidence of acute coronary syndrome (3) Weakness: Plan: OT and PT while hospitalized. Treat underlying CHF (4) CAD (coronary artery disease): Plan: Stable. Continue current medical manage. No evidence of acute coronary syndrome (5) CLL (chronic lymphocytic leukemia): Plan: Stable. Serial labs. Outpatient oncology follow-up as scheduled. She is receiving parenteral iron replacement while hospitalized. She received 3 days of parenteral Venofer iron replacement therapy. (6) Diabetes mellitus, type 2: Plan: ADA diet. Sliding scale coverage. No basal insulin at this time (7) PAF (paroxysmal atrial fibrillation): Plan: Currently in normal sinus rhythm. Continue current medical management with Eliquis, amiodarone, carvedilol (8) Ischemic cardiomyopathy: Plan: Stable. Continue current medical management. She is now on oral Lasix and spironolactone has been restarted. (9) Chronic kidney disease, stage IV (severe): Plan: Creatinine is now downtrending to 2.7 since Entresto was discontinued. Entresto has been discontinued to eliminate the ARB. May 06. Spironolactone has been restarted. Potassium and renal function will need to be monitored closely Plan Hopeful discharge to [facility] on Wednesday. I spoke to her daughter, Lita Prater, by phone today, May 07 Admission and Anticipated Discharge Date Admission Date: May 02, 2024 Subjective Alert and oriented. Creatinine has improved from 2.9 down to 2.7 since Entresto was discontinued. She remains on room air. Hopefully the higher dose of Lasix at 80 mg daily will prevent recurrence of overt systolic CHF. Only time will tell. Will repeat chest x-ray again tomorrow, May 08. Hopefully she can go to [facility] tomorrow, May 08. Review of Systems 2 Review of Systems: Constitutionalno fever or chills. Feeling weak and washed out ENTno blurred vision, no double vision, no epistaxis, no sore throat Respiratoryno cough, no wheezing. Shortness of breath with minimal exertion Cardiacno palpitations, no chest pain, no syncope Humble nausea, vomiting, diarrhea, melena, hematochezia GUno urinary retention, no urinary incontinence, no dysuria, no hematuria Musculoskeletalno joint pain, no muscle tenderness Skinno bruising, no rashes, no pruritus. She looks pale Neurono isolated weakness, no paresthesia. Generalized weakness with frequent falls Psychno depression, no anxiety Physical Exam 2 Physical Exam: General-alert. Oriented. No fever HEENT-head atraumatic and normocephalic, pupils equal and reactive to light, extraocular muscles intact Neck-no lymphadenopathy or thyromegaly, trachea midline Chest-bibasilar inspiratory rales. No wheezing. No rhonchi Cardiac-regular rate and rhythm, normal S1 and S2 Abdomen-normal bowel sounds, no hepatosplenomegaly Gmffnhtavve-5-6+ pitting edema bilateral lower extremities below the knees has lessened Neuro-cranial nerves II through XII intact, motor and sensory function within normal limits, strength symmetrical with generalized weakness, no focal deficits Psych-normal affect, normal mood Results & Data Results & Data Vital Signs (Past 12 Hours) Vital Signs Temp Pulse Pulse Resp BP Pulse Ox Pulse Ox 05/07/24 11:22 36.4 C L 102 H 19 96/62 L 97 05/07/24 08:07 05/07/24 08:03 93 05/07/24 07:59 36.7 C 109 H 19 101/68 95 05/07/24 07:33 105 H 05/07/24 07:30 36.6 C 114 H 18 117/82 93 O2 Del Method O2 Del Method 05/07/24 11:22 Room Air 05/07/24 08:07 Room Air 05/07/24 08:03 Room Air 05/07/24 07:59 Room Air 05/07/24 07:33 05/07/24 07:30 Room Air Laboratory Results 05/05/24 05:44 05/07/24 10:13 PG Care Time/CCT Total # of Minutes Spent Total Time Spent with Patient: Total time spent is greater than 50% in coordination of care (as documented) at patient's floor/unit and/or counseling patient: Coding Level of Care Code 83337 SUB INP/OBS CARE 50MIN Diagnoses Acute on chronic systolic (congestive) heart failure I50.23 Demand ischemia I24.89 Weakness R53.1 CAD (coronary artery disease) I25.10 CLL (chronic lymphocytic leukemia) C91.90 Diabetes mellitus, type 2 E11.9 PAF (paroxysmal atrial fibrillation) I48.0 Ischemic cardiomyopathy I25.5 Chronic kidney disease, stage IV (severe) N18.4
[2024-05-08 06:32] LABS: BUN Creatinine Ratio 35.1 (10-20); Calcium 8.8 mg/dl (8.6-10.3); Est GFR (African American) 19.2 ml/min; Est GFR (Non-African American) 16.6 ml/min; Magnesium 2.1 mg/dl (1.7-2.4); Potassium 3.4 mmol/L (3.5-5.1)
--- NOTE | 2024-05-08 07:57 | XRay Report ---
XR chest 1V portable HISTORY: CHF COMPARISON: Chest 05/06/2024. FINDINGS: No pneumothorax. No pleural effusions. The heart remains enlarged. There is diffuse interst itial/vascular thickening suggestive of mild pulmonary edema. Bibasilar linear densities favor subseg mental atelectasis. Degenerative changes noted within the shoulders. IMPRESSION: Cardiomegaly with mild interstitial pulmonary edema. ACT 112: Negative or not required by law. Electronically signed by: Arnel Cortés M.D. 05/08/2024 7:56 AM
[2024-05-08] MEDS: POTASSIUM CHLORIDE CRTAB 20 MEQ TABCR PO STA (08:28)
[2024-05-08] MEDS: CHLORASEPTIC (PHENOL) 1.4% SOLN 180 ML BTL MT PRN (09:28)
[2024-05-08] MEDS: POTASSIUM CHLORIDE / WTR 10 MEQ/100 ML PLCT IV SCH (10:34)
--- NOTE | 2024-05-08 11:51 | Nephrology Consultation ---
Date of Consultation May 08, 2024 Assessment & Plan (1) Acute kidney injury: * ALLAN/CKD due to CHF. Patient is symptomatically improved following diuresis * Entresto has been held due to relative hypotension, creatinine is now trending down * 05/02/24 urinalysis was negative for blood or protein * Consider renal US if renal recovery stalls * If transferred to [facility] recommend that BMP be monitored weekly until kidney function recovers * Defer outpatient follow up to long term MD and CHF clinic (2) Chronic kidney disease, stage IV (severe): * CKD stage G4 (advanced impairment). Baseline Cr has been 1.8-2.0 w/ EGFR 26 cc/min (3) CHF (congestive heart failure): * 05/06 echocardiogram: LVEF 30-35% * Entresto being held due to relative hypotension * Recommend reducing Furosemide back to 20 mg po daily * Monitor daily weight, BP, volume status * Will need close outpatient follow up w/ [facility] CHF clinic History of Present Illness Reason for Consultation: ALLAN/CKD Attending Physician: Michele Fuentes DO History of Present Illness Ms. Diaz is an 78 year old white female who is seen at the request of the [facility] hospitalist service for evaluation of ALLAN/CKD. Information for the HPI is obtained from direct patient interview and review of the EMR. HPI is summarized as follows: Ms. Diaz has CKD stage G4 (advanced impairment). Baseline Cr has been 1.8-2.0 w/ EGFR 26 cc/min. She has not undergone nephrology evaluation in the past. Her medical history is significant for ASCVD status post a AMI 2010, CHF, hypertension, paroxysmal atrial fibrillation, AODM, CLL and anxiety. Ms. Diaz presented to [facility] 05/02/24 for evaluation of generalized weakness, CHF req uiring O2 therapy. Echocardiogram revealed that LVEF has dropped to 30-35%. Since admission she has diuresed 5 L, weight is down 6 kg, peripheral edema has resolved. Creatinine peaked at 2.9 and patient has become relatively hypotensive w/ SBP in the 's. Primary service has held Entresto. Creatinine is now improved to 2.6. Ms. Diaz informs me that she is to be transferred to [facility] this afternoon. Allergies Allergy/AdvReac Type Severity Reaction Status Date / Time bee venom protein (honey bee) Allergy Severe Anaphylaxis Verified 04/27/24 15:19 Penicillins Allergy Severe Rash, Verified 04/27/24 15:19 anaphylaxis Sulfa (Sulfonamide Allergy Severe Rash, Verified 04/27/24 15:19 Antibiotics) anaphylaxis Home Medications Medication Instructions Recorded Confirmed Type abaloparatide (Tymlos) 80 mcg subcut QAM 06/19/23 05/02/24 History apixaban 5 mg tablet (Eliquis) 5 mg PO BID #180 tabs 08/25/23 05/02/24 Rx atorvastatin 80 mg tablet (Lipitor) 80 mg PO HS #90 tabs 08/25/23 05/02/24 Rx clopidogrel 75 mg tablet 75 mg PO DAILY #90 tabs 08/25/23 05/02/24 Rx folic acid 1 mg tablet 1 mg PO DAILY #90 tabs 08/25/23 05/02/24 Rx lancets 31 gauge (Comfort Touch #100 ea 08/25/23 04/27/24 Rx Ultra Thin Lancets) nitroglycerin 0.4 mg sublingual 0.4 mg sublingual UD PRN Chest 08/25/23 05/02/24 Rx tablet (Nitrostat) Pain #25 tabs sacubitril 97 mg-valsartan 103 mg 1 tab PO BID #120 tabs 08/25/23 05/02/24 Rx tablet (Entresto) sertraline 100 mg tablet (Zoloft) 100 mg PO DAILY #90 tabs 08/25/23 05/02/24 Rx blood sugar diagnostic (OneTouch #100 ea 09/01/23 04/27/24 Rx Verio test strips) furosemide 20 mg tablet 20 mg PO QAM #90 tabs 11/10/23 05/02/24 Rx fexofenadine 180 mg tablet 180 mg PO Q24H #90 tabs 11/24/23 05/02/24 Rx fluticasone propionate 50 1 spray intranasal QAM #48 mL 12/02/23 05/02/24 Rx mcg/actuation nasal spray,suspension polyethylene glycol 3350 17 17 g PO DAILY #119 grams 12/20/23 05/02/24 Rx gram/dose oral powder (Miralax) pantoprazole 40 mg tablet,delayed 40 mg PO DAILY #90 tabs 01/18/24 05/02/24 Rx release amiodarone 200 mg tablet 200 mg PO QAM #90 tabs 03/07/24 05/02/24 Rx spironolactone 25 mg tablet 25 mg PO DAILY #90 tabs 03/07/24 05/02/24 Rx mecobalamin (vitamin B12) 1,000 1,000 mcg sublingual DAILY #90 tabs 03/10/24 05/02/24 Rx mcg disintegrating tablet,sublingual albuterol sulfate 90 mcg/actuation 1 puff inhalation Q6H PRN 03/21/24 05/02/24 Rx aerosol inhaler Shortness Of Breath #8.5 grams cholecalciferol (vitamin D3) 50 2,000 unit PO QAM #90 tabs 03/27/24 05/02/24 Rx mcg (2,000 unit) tablet triamcinolone acetonide 0.5 % 1 applic topical BID #15 grams 04/21/24 05/02/24 Rx topical ointment carvedilol 6.25 mg tablet 3.125 mg (1/2 x 6.25 mg) PO BID 04/27/24 05/02/24 Rx #180 tabs prednisone 10 mg tablet 10 mg PO UD 05/02/24 05/02/24 History Patient History Medical History 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 CLL (chronic lymphocytic leukemia) Ischemic cardiomyopathy PAF (paroxysmal atrial fibrillation) Diabetes mellitus, type 2 Depression Hypertension Seasonal allergies Cerebral artery occlusion History of CHF (congestive heart failure) Osteoarthritis of right knee GEL SHOT, MOST RECENT INJECTION FEBRUARY 2021 DM2 (diabetes mellitus, type 2) History of colon polyps Nausea and vomiting after administration of anesthetic agent Osteoarthritis Leukemia just monitoring On anticoagulant therapy Hearing deficit Stroke x3 ?--2010/2011--no neurologist, left arm weakness, uses cane to ambulate Hyperlipidemia Atrial fibrillation DX 2018 ? DR KENNEDY - NO HX CARDIOVERSION Myocardial Infarction 2010 & 2019...STENT X 1 Asthma LAST USE LAST WEEK Surgical History Hx of cataract surgery B/L H/O heart artery stent HX NH , STENT X1 2019 History of phacoemulsification of cataract of both eyes with intraocular lens implantation History of dilatation and curettage x3 History of total left knee replacement (TKR) History of right breast biopsy x3--benign History of laparoscopy History of bilateral breast reduction surgery History of colonoscopy Family History Mother Family history of diabetes mellitus Myocardial infarction Family/Other Family history of diabetes mellitus cousin Aunt Breast cancer Father Myocardial infarction Stroke Other No family history of adverse response to anesthesia Denies family history of Ovarian cancer Prostate cancer Colorectal cancer Uterine cancer Social History Smoking Status: Never smoker Tobacco Type: Cigarettes Age Started Using Tobacco: 53; Age Quit Using Tobacco: 62; Cigarettes Per Day: HX OCCASSIONAL CIGARETTE 15 YRS AGO; Second Hand Exposure: No; Do You Dip or Chew Tobacco: No; Hx Alcohol Use: No Hx Substance Use: Yes (MEDICAL MARIJUANA) Preferred Language: Mohawk Communication Ability: Effective Visual Impairment: No Limitations Hearing Ability: Use of Hearing Aid New Client Banking Services Clerk Required: No Beliefs That Will Affect Care: None marital status: / Current Living Situation: Family Current Living Situation Comment: lives with daughter current occupational status: retired current occupation: worked for [employer] Feels Safe at Home: Yes Safety Concerns: Feels Safe At This Time Childhood Exposure to Second-Hand Smoke: Yes Diet: low salt Diet Comment: low sodium Dental Care, Regularly: Yes Physical Activity Frequency: Does not Exercise Seatbelt Use: always Sunscreen Use: No Assistive Devices: Walker and Wheelchair Review of Systems Constitutional: no fever Eyes: no problem reported Ear, Nose, Mouth, Throat: no problem reported Respiratory: no cough and no dyspnea Cardiovascular: no chest pain Gastrointestinal: no abdominal pain, no nausea, no vomiting and no diarrhea/loose stools Genitourinary: no dysuria Integumentary: no rash Physical Exam Constitutional: not in distress Eyes: PERRL, conjunctivae normal, anicteric sclerae ENMT: external ear and nose normal, oropharynx normal Neck: trachea midline, no thyromegaly Respiratory: normal respiratory effort, lungs clear to auscultation Cardiovascular: Rate/Rhythm: + tachycardic Gastrointestinal (Abdomen): normal bowel sounds, soft, nontender, no hepatosplenomegaly Skin: no rashes, warm and dry Neurologic: Speech / Cognition: normal speech and normal cognition Results & Data Vital Signs (Past 12 Hours) Vital Signs Temp Pulse Resp BP Pulse Ox O2 Del Method 05/08/24 08:21 36.6 C 107 H 18 96/65 L 95 Room Air 05/08/24 03:46 36.3 C L 102 H 20 90/64 L 97 Room Air 05/07/24 23:45 Room Air Laboratory Results Laboratory Results WBC 13.52 K/ul (4.8-10.8) H 05/05/24 05:44 RBC 3.26 M/uL (4.20-5.40) L 05/05/24 05:44 Hgb 9.9 g/dl (12.0-16.0) L 05/05/24 05:44 Hct 31.4 % (37.0-47.0) L 05/05/24 05:44 MCV 96.3 fL (80.0-100.0) 05/05/24 05:44 MCH 30.4 pg (25.0-34.0) 05/05/24 05:44 MCHC 31.5 g/dL (32.0-36.0) L 05/05/24 05:44 RDW Std Deviation 51.2 fL (36.4-46.3) H 05/05/24 05:44 RDW Coeff of Nino 14.7 % (11.5-14.5) H 05/05/24 05:44 Plt Count 240 K/uL (130-400) 05/05/24 05:44 MPV 9.8 fL (9.4-12.4) 05/05/24 05:44 Immature Gran % (Auto) 0.4 % 05/05/24 05:44 Neut % (Auto) 52.3 % 05/05/24 05:44 Lymph % (Auto) 35.7 % 05/05/24 05:44 Stewart % (Auto) 7.7 % 05/05/24 05:44 Eos % (Auto) 3.5 % 05/05/24 05:44 Baso % (Auto) 0.4 % 05/05/24 05:44 Neut # (Auto) 7.06 K/uL (1.40-6.50) H 05/05/24 05:44 Lymph # (Auto) 4.83 K/uL (1.20-3.40) H 05/05/24 05:44 Stewart # (Auto) 1.04 K/uL (0.11-0.59) H 05/05/24 05:44 Eos # (Auto) 0.47 K/uL (0.00-0.50) 05/05/24 05:44 Baso # (Auto) 0.06 K/uL (0.00-0.20) 05/05/24 05:44 Immature Gran # (Auto) 0.06 K/uL (0.01-0.20) 05/05/24 05:44 PT 12.4 Seconds (9.0-12.0) H 05/03/24 05:32 INR 1.2 (0.9-1.1) H 05/03/24 05:32 Sodium 135 mmol/L (136-145) L 05/08/24 05:23 Potassium 3.4 mmol/L (3.5-5.1) L 05/08/24 05:23 Chloride 99 mmol/L (98-107) 05/08/24 05:23 Carbon Dioxide 26 mmol/L (21-32) 05/08/24 05:23 Anion Gap 10 (3-11) 05/08/24 05:23 BUN 92 mg/dl (6-23) H 05/08/24 05:23 Creatinine 2.62 mg/dl (0.6-1.2) H 05/08/24 05:23 Est Cr Clr Drug Dosing 19.0 ml/min 05/08/24 05:23 Est GFR ( Amer) 19.2 ml/min 05/08/24 05:23 Est GFR (Non-Af Amer) 16.6 ml/min 05/08/24 05:23 BUN/Creatinine Ratio 35.1 (10-20) H 05/08/24 05:23 Glucose 139 mg/dl (70-99(Fasting)) H 05/08/24 05:23 POC Glucose 139 mg/dl (70-99) H 05/03/24 11:59 Calcium 8.8 mg/dl (8.6-10.3) 05/08/24 05:23 Phosphorus 3.9 mg/dl (2.5-4.9) 05/02/24 12:40 Magnesium 2.1 mg/dl (1.7-2.4) 05/08/24 05:23 Iron 31 mcg/dl (35-150) L 05/02/24 14:01 TIBC 429 mcg/dl (250-450) 05/02/24 14:01 Unsaturated IBC 398 mcg/dl (155-355) H 05/02/24 14:01 Transferrin % Sat 7 % (15-50) L 05/02/24 14:01 Ferritin 36.4 ng/ml (8-388) 05/02/24 14:01 Total Bilirubin 0.6 mg/dl (0.2-1.0) 05/03/24 05:32 AST 11 U/L (13-39) L 05/03/24 05:32 ALT 16 U/L (7-52) 05/03/24 05:32 Alkaline Phosphatase 90 U/L (34-104) 05/03/24 05:32 Troponin I High Sens 31.6 pg/ml (0-14) H 05/02/24 12:40 B-Natriuretic Peptide > 4700 pg/ml (0-100) H 05/02/24 10:21 Total Protein 6.0 gm/dl (6.0-8.3) 05/03/24 05:32 Albumin 3.7 gm/dl (3.4-5.0) 05/03/24 05:32 Globulin 2.3 gm/dl (2.5-4.0) L 05/03/24 05:32 Albumin/Globulin Ratio 1.6 (0.9-2) 05/03/24 05:32 Vitamin B12 1232 pg/ml (180-914) H 05/02/24 14:01 Folate > 22.30 ng/ml (>5.38) 05/02/24 14:01 Procalcitonin 0.18 ng/ml (0-0.5) 05/02/24 12:40 TSH 5.937 uIu/ml (0.300-4.500) H 05/02/24 10:21 Free T4 1.35 ng/dl (0.61-1.60) 05/02/24 10:21 Urine Color Yellow 05/02/24 12:37 Urine Appearance Clear (Clear) 05/02/24 12:37 Urine pH 5.0 (4.5-7.5) 05/02/24 12:37 Ur Specific [place] 1.012 (1.000-1.030) 05/02/24 12:37 Urine Protein Negative (Negative) 05/02/24 12:37 Urine Glucose (UA) Negative (Negative) 05/02/24 12:37 Urine Ketones Negative (Negative) 05/02/24 12:37 Urine Blood Negative (Negative) 05/02/24 12:37 Urine Nitrite Negative (Negative) 05/02/24 12:37 Urine Bilirubin Negative (Negative) 05/02/24 12:37 Urine Urobilinogen Negative (Negative) 05/02/24 12:37 Ur Leukocyte Esterase Negative (Negative) 05/02/24 12:37 Adenovirus (PCR) Not Detected (NotDetected) 05/02/24 10:24 B. pertussis DNA (PCR) Not Detected (NotDetected) 05/02/24 10:24 B.parapertussis DNA PCR Not Detected (NotDetected) 05/02/24 10:24 C. pneumoniae DNA (PCR) Not Detected (NotDetected) 05/02/24 10:24 Coronavirus OC43 (PCR) Not Detected (NotDetected) 05/02/24 10:24 Coronavirus HKU1 (PCR) Not Detected (NotDetected) 05/02/24 10:24 Coronavirus 229E (PCR) Not Detected (NotDetected) 05/02/24 10:24 SARS-CoV-2 (PCR) Not Detected (NotDetected) 05/02/24 10:24 Coronavirus NL63 (PCR) Not Detected (NotDetected) 05/02/24 10:24 Human Metapneumovir PCR Not Detected (NotDetected) 05/02/24 10:24 Influenza Type A (PCR) Not Detected (NotDetected) 05/02/24 10:24 Influenza Type B (PCR) Not Detected (NotDetected) 05/02/24 10:24 M. pneumoniae (PCR) Not Detected (NotDetected) 05/02/24 10:24 Parainfluenza 1 (PCR) Not Detected (NotDetected) 05/02/24 10:24 Parainfluenza 2 (PCR) Not Detected (NotDetected) 05/02/24 10:24 Parainfluenza 3 (PCR) Not Detected (NotDetected) 05/02/24 10:24 Parainfluenza 4 (PCR) Not Detected (NotDetected) 05/02/24 10:24 RSV (PCR) Not Detected (NotDetected) 05/02/24 10:24 Entero/Rhino (PCR) Not Detected (NotDetected) 05/02/24 10:[address] 05/02/24 12:14 CT SCAN OF THE BRAIN WITHOUT IV CONTRAST CLINICAL HISTORY: Generalized weakness COMPARISON STUDY: CT of the brain dated 02/12/2024. MRI of the brain dated 06/12/2011. TECHNIQUE: Unenhanced axial CT scan of the brain is performed from the vertex to the skull base. A dose lowering technique was utilized adhering to the principles of ALARA. CT DOSE: 625.8 mGy.cm FINDINGS: Brain parenchyma: There is age-related involutional change noting moderate subcortical and periventricular microangiopathic disease. There is no hemorrhage, mass effect, or evidence of acute territorial ischemia by CT criteria. There is a 1.8 cm extra-axial nodule along the left convexity seen on axial image #24. Ott-white matter differentiation is preserved. No extra-axial fluid collection is seen. Ventricles, sulci, cisterns: Prominent secondary to involutional change. Intracranial vasculature: There is atherosclerotic calcification of the cavernous carotid and vertebral arteries. Calvarium: Unremarkable. Sinuses and mastoids: The paranasal sinuses are clear. The mastoid air cells are well pneumatized. Orbits: The bony orbits are grossly intact. There are bilateral ocular lens implants. IMPRESSION: 1. There is no hemorrhage, mass effect, or evidence of acute territorial ischemia by CT criteria. 2. There is a 1.8 cm extra-axial lesion along the left convexity, which is typical for a meningioma. There is no associated mass effect. A nonemergent contrast-enhanced MRI of the brain is recommended for further assessment. ACT 112: Negative or not required by law. Electronically signed by: Piter Joy M.D. 05/02/2024 1:24 PM Brain MRI 05/03/24 00:14 Exam(s): MRI HEAD Without Contrast EXAM: MR Head Without Intravenous Contrast CLINICAL HISTORY: Reason for exam: 1.8 cm extra-axial lesion along the left convexity. TECHNIQUE: Magnetic resonance images of the head/brain without intravenous contrast in multiple planes. COMPARISON: 05/02/2024 FINDINGS: Brain: Focal area of restricted diffusion overlying the high left frontal lobe best appreciated on axial image 18 series 4 T2/flair signal hyperintensity consistent with moderate ischemic microangiopathy. No hemorrhage. Ventricles: Unremarkable. No ventriculomegaly. Bones/joints: Unremarkable. No acute fracture. Sinuses: Unremarkable as visualized. No acute sinusitis. Mastoid air cells: Unremarkable as visualized. No mastoid effusion. Orbits: Unremarkable as visualized. IMPRESSION: No acute infarct Left frontal lobe meningioma Electronically signed by: Jairon Randall MD 05/03/24 01:35 AM Chest X-Ray 05/08/24 07:30 XR chest 1V portable HISTORY: CHF COMPARISON: Chest 05/06/2024. FINDINGS: No pneumothorax. No pleural effusions. The heart remains enlarged. There is diffuse interstitial/vascular thickening suggestive of mild pulmonary edema. Bibasilar linear densities favor subsegmental atelectasis. Degenerative changes noted within the shoulders. IMPRESSION: Cardiomegaly with mild interstitial pulmonary edema. ACT 112: Negative or not required by law. Electronically signed by: Arnel Cortés M.D. 05/08/2024 7:56 AM PG Care Time/CCT Total # of Minutes Spent Total Time Spent with Patient: Total time spent is greater than 50% in coordination of care (as documented) at patient's floor/unit and/or counseling patient: Coding Level of Care Code 88234 IN/OBS CONSULT LVL 5,80M Diagnoses Acute kidney injury N17.9 Chronic kidney disease, stage IV (severe) N18.4 CHF (congestive heart failure) I50.9 Heart failure chronicity: unspecified Heart failure type: unspecified (3) CHF (congestive heart failure) Heart failure chronicity: unspecified Heart failure type: unspecified Qualified Code(s): I50.9 - Heart failure, unspecified
--- NOTE | 2024-05-08 15:24 | Hospitalist Progress Note ---
Date of Service May 08, 2024 Assessment & Plan (1) Acute on chronic systolic (congestive) heart failure: Plan: -Patient's lasix dosing was increased initially to 80 mg daily- this is now to be decreased back to 20 mg daily per nephrology recommendations -Cardiology consulted:Follow up recommendations -Monitor daily weights -Monitor strict I's and O's -CXR 05/08: mild interstitial pulmonary edema -Of note: Metolazone was also administered once on May 04. Brisk diuresis ensued. -Echo 05/02: LVEF decreased to 30-35% -Will obtain cardiology evaluation (2) Demand ischemia: Plan: -Troponin mildly elevated on admission without chest pain or acute EKG changes. -Cardiology consulted: Follow up recommendations (3) PAF (paroxysmal atrial fibrillation): Plan: -Currently in normal sinus rhythm. -At times noted tachycardia <110- patient anxious at time of exam -Continue current medical management with Eliquis, amiodarone, carvedilol -May need to switch carvedilol to metoprolol for permissive BP purposes to better control HR if persists -Cardiology consulted (4) Weakness: Plan: -OT and PT while hospitalized. Rehab recommended- working on auth (5) CAD (coronary artery disease): Plan: -Continue current regimen -Cardiology consulted for further evaluation -Reduced EF noted on echo but without focal regional wall abnormalities (6) CLL (chronic lymphocytic leukemia): Plan: -Stable. Serial labs. -Outpatient oncology follow-up as scheduled. -She is receiving parenteral iron replacement while hospitalized. -She received 3 days of parenteral Venofer iron replacement therapy. (7) Diabetes mellitus, type 2: Plan: -Pre-dm- patient and family declined insulin -Educated on diet and lifestyle modifications (8) Chronic kidney disease, stage IV (severe): Plan: -Creatinine is now downtrending -Nephro consulted -Entresto on hold- will discuss with nephrology and cardiology -Per prior team Entresto has been discontinued to eliminate the ARB. Spironolactone has been restarted. -Monitor renal function closely Plan Called and updated daughter over the phone Admission and Anticipated Discharge Date Admission Date: May 02, 2024 Subjective Patient seen and evaluated bedside Patient is currently in NAD Cr continues to slowly improve since Entresto was held Patient does not want to take insulin- we discussed pre-DM status and explained risks and benefits Daughter was updated over the phone Patient and family are aware that a prior authorization is required prior to rehab Review of Systems Review of Systems: As per HPI Physical Exam Physical Exam: General-alert. Oriented. No fever HEENT-head atraumatic and normocephalic, extraocular muscles intact Neck-no lymphadenopathy or thyromegaly, trachea midline Chest-bibasilar inspiratory rales. No wheezing. No rhonchi Cardiac-regular rate and rhythm, normal S1 and S2 Abdomen-normal bowel sounds, no hepatosplenomegaly [id number]+ pitting edema bilateral lower extremities below the knees has lessened Neuro-cranial nerves II through XII intact, motor and sensory function within normal limits, strength symmetrical with generalized weakness, no focal deficits Psych-normal affect, normal mood Results & Data Results & Data Vital Signs (Past 12 Hours) Vital Signs Temp Pulse Resp BP Pulse Ox O2 Del Method 05/08/24 11:49 36.7 C 116 H 18 116/79 93 Room Air 05/08/24 08:21 36.6 C 107 H 18 96/65 L 95 Room Air 05/08/24 08:00 Room Air 05/08/24 03:46 36.3 C L 102 H 20 90/64 L 97 Room Air PG Care Time/CCT Total # of Minutes Spent Total Time Spent with Patient: Total time spent is greater than 50% in coordination of care (as documented) at patient's floor/unit and/or counseling patient: Coding Level of Care Code 85156 SUB INP/OBS CARE 2/35MIN Diagnoses Acute on chronic systolic (congestive) heart failure I50.23 Demand ischemia I24.89 PAF (paroxysmal atrial fibrillation) I48.0 Weakness R53.1 CAD (coronary artery disease) I25.10 CLL (chronic lymphocytic leukemia) C91.90 Diabetes mellitus, type 2 E11.9 Chronic kidney disease, stage IV (severe) N18.4
--- NOTE | 2024-05-08 21:41 | Cardiology Consultation ---
Date of Consultation May 08, 2024 Assessment & Plan (1) HFrEF (heart failure with reduced ejection fraction): (2) Aortic stenosis: (3) Mitral regurgitation: (4) PAF (paroxysmal atrial fibrillation): (5) CAD (coronary artery disease): (6) Hyperlipidemia: (7) Ischemic cardiomyopathy: (8) S/P coronary artery stent placement: (9) Paroxysmal ventricular tachycardia: Plan ASSESSMENT/PLAN: 1. Aortic stenosis: Appears severe on echo imaging but likely lower gradient gi annie reduced LV systolic function. Peak velocity on personal review near 3.3 m/s and aortic valve area of approximately 0.8 cm. Discussed diagnosis with patient at the bedside and then via telephone with her daughter as per patient request. Already deemed not to be a surgical candidate in 2019 for multivessel CAD. Consider TAVR evaluation if patient agreeable. Dr. Robison, her primary lead nitrate processor, can have ongoing conversations as he will assume her care tomorrow. 2. Paroxysmal atrial fibrillation: Has been in atrial fibrillation since 05/04/24 AM, mostly with rapid ventricular response. Seems to be asymptomatic. Increase amiodarone to 200 mg twice daily for now. Will try to reestablish sinus rhythm, especially in light of her aortic stenosis and heart failure. Continue 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 for stroke risk reduction. Monitor CBC. 3. Mitral regurgitation: Appeared to be nonsevere on echo during this hospital stay. Continue to monitor. 4. CAD s/p OM PCI (2019): Had residual diagonal and circumflex severe CAD with subtotaled RCA in 2019 and was not felt to be surgical candidate at outside facility. No angina. Continue medical therapy, including antiplatelet therapy, beta-earl, high intensity statin therapy. 5. Heart failure with reduced EF: Chronic issue. She appears euvolemic on exam and based on labs, likely hypovolemic during this hospital stay with more aggre ssive diuretic. Agree with reduction in diuretic. Has received Lasix 80 mg daily for the past 3 days and metolazone approximately 4 days ago. Can resume out patient Lasix dose of 20 mg daily for now with close monitoring of her renal function and electrolytes. Entresto currently held but would resume Entresto when renal function near baseline. Continue carvedilol for which titration was limited by relative bradycardia according to records. Continue spironolactone. If renal function remains stable, consider SGLT2 inhibitor. No SGLT2 inhibitor currently given acute on chronic renal insufficiency. Given otherwise optimal therapy, would qualify for ICD for primary prevention. Recommend EP evaluation after conversation with her primary lead nitrate processor, Dr. Robison, if patient/daughter agreeable. 6. Elevated troponin: Likely demand ischemia given known underlying multivessel CAD, significant aortic stenosis. 7. Cardiomyopathy: Consider ICD for primary prevention if patient/family ag reeable as noted above. Medical therapy as noted. 8. Ventricular tachycardia: Nonsustained runs of ventricular tachycardia. Increasing amiodarone as above to hopefully reestablish sinus rhythm. While on amiodarone, monitor transaminase levels and TSH, with periodic monitoring of QT. 9. Disposition: Dr. Robison, her primary lead nitrate processor, will resume her cardiology care tomorrow. He was made aware of her hospitalization. Continue to follow in the heart failure program. As per patient request, contacted her daughter, Lita, via telephone earlier this evening where we discussed her atrial fibrillation and aortic stenosis. Highly complex medical issues. Thank you for allowing me to participate in the care of your patient. Please call for any other questions or concerns. Sincerely, Brian Roach M.D. History of Present Illness Reason for Consultation: Heart failure Requesting Physician: Michele Fuentes DO Attending Physician: Michele Fuentes DO History of Present Illness Ms. Diaz is a pleasant 78-year-old female with a history significant for heart failure with improved EF, ischemic cardiomyopathy, multivessel CAD s/p OM PCI (2.5 x 38 Resolute FRANKO EFFIE), anteroapical ME (2010), paroxysmal atrial fibrillation, aortic stenosis, mitral regurgitation, hypertension, dyslipidemia, CLL, stroke, and CKD. Her primary lead nitrate processor is Dr. Robison. She is also followed in the heart failure program with Tatiana Ch PA-C. In April 2019, she was noted to have an LV EF of 30 to 35% with inferior wall akinesis and akinetic/aneurysmal apex, after presenting with NSTEMI and heart failure symptoms. She was hospitalized in June 2019 and underwent cardiac catheterization, demonstrating severe multivessel CAD including large D1 ostial 99%, ostial circumflex 99%, large OM1 mid 70% and subtotal dominant RCA with [id number] collaterals. She was referred for CT surgery but deemed not to be surgical candidate according to records and underwent OM PCI. Outside echo on 06/21/2019 reported LVEF of 25 to 30%. Over time her LV systolic function reportedly improved and she has been followed in the heart failure program, most recently on 04/27/2024 at which point carvedilol was reduced to 3.125 mg due to fatigue. Beta-earl was not further titrated due to concerns of bradycardia. She was hospitalized on 05/02/2024 with weakness, nausea, and vomiting. She was reportedly 4 pounds above her baseline weight and hospitalist service administered intravenous diuretics for concern of heart failure. Her creatinine on presentation was 1.76 but ty to 2.9 on 05/06/2024. In addition to intravenous diuretic, she received metolazone on 05/04/2024. She apparently had significant diuresis and at the time of this consult on 05/08/2024, her net negative fluid balance is -5 L. Lasix was changed to 80 milligrams on 05/06/2024 p.o. and has been continued for the past 3 days. She denies shortness of breath, orthopnea, edema, or chest pain. She still feels nauseated. She has occasional palpitations. She denies melena, hematochezia, or hematuria. Review of systems: As above. Review of systems otherwise negative/unremarkable. Family history: Father had CAD. Social history: She denies tobacco abuse. Occasional alcohol. She lives with her daughter, Lita. She has 1 son, Jon, in [place]. She was alone in her hospital room. Allergies Allergy/AdvReac Type Severity Reaction Status Date / Time bee venom protein (honey bee) Allergy Severe Anaphylaxis Verified 04/27/24 15:19 Penicillins Allergy Severe Rash, Verified 04/27/24 15:19 anaphylaxis Sulfa (Sulfonamide Allergy Severe Rash, Verified 04/27/24 15:19 Antibiotics) anaphylaxis Home Medications Medication Instructions Recorded Confirmed Type abaloparatide (Tymlos) 80 mcg subcut QAM 06/19/23 05/02/24 History apixaban 5 mg tablet (Eliquis) 5 mg PO BID #180 tabs 08/25/23 05/02/24 Rx atorvastatin 80 mg tablet (Lipitor) 80 mg PO HS #90 tabs 12/13/23 08/20/24 Rx clopidogrel 75 mg tablet 75 mg PO DAILY #90 tabs 08/25/23 05/02/24 Rx folic acid 1 mg tablet 1 mg PO DAILY #90 tabs 08/25/23 05/02/24 Rx lancets 31 gauge (Comfort Touch #100 ea 08/25/23 04/27/24 Rx Ultra Thin Lancets) nitroglycerin 0.4 mg sublingual 0.4 mg sublingual UD PRN Chest 08/25/23 05/02/24 Rx tablet (Nitrostat) Pain #25 tabs sacubitril 97 mg-valsartan 103 mg 1 tab PO BID #120 tabs 08/25/23 05/02/24 Rx tablet (Entresto) sertraline 100 mg tablet (Zoloft) 100 mg PO DAILY #90 tabs 08/25/23 05/02/24 Rx blood sugar diagnostic (OneTouch #100 ea 09/01/23 04/27/24 Rx Verio test strips) furosemide 20 mg tablet 20 mg PO QAM #90 tabs 11/10/23 05/02/24 Rx fexofenadine 180 mg tablet 180 mg PO Q24H #90 tabs 11/24/23 05/02/24 Rx fluticasone propionate 50 1 spray intranasal QAM #48 mL 12/02/23 05/02/24 Rx mcg/actuation nasal spray,suspension polyethylene glycol 3350 17 17 g PO DAILY #119 grams 12/20/23 05/02/24 Rx gram/dose oral powder (Miralax) pantoprazole 40 mg tablet,delayed 40 mg PO DAILY #90 tabs 01/18/24 05/02/24 Rx release amiodarone 200 mg tablet 200 mg PO QAM #90 tabs 03/07/24 05/02/24 Rx spironolactone 25 mg tablet 25 mg PO DAILY #90 tabs 03/07/24 05/02/24 Rx mecobalamin (vitamin B12) 1,000 1,000 mcg sublingual DAILY #90 tabs 03/10/24 05/02/24 Rx mcg disintegrating tablet,sublingual albuterol sulfate 90 mcg/actuation 1 puff inhalation Q6H PRN 03/21/24 05/02/24 Rx aerosol inhaler Shortness Of Breath #8.5 grams cholecalciferol (vitamin D3) 50 2,000 unit PO QAM #90 tabs 03/27/24 05/02/24 Rx mcg (2,000 unit) tablet triamcinolone acetonide 0.5 % 1 applic topical BID #15 grams 04/21/24 05/02/24 Rx topical ointment carvedilol 6.25 mg tablet 3.125 mg (1/2 x 6.25 mg) PO BID 04/27/24 05/02/24 Rx #180 tabs prednisone 10 mg tablet 10 mg PO UD 05/02/24 05/02/24 History Problem List (Updated 05/08/24 @ 21:57 by Zack Roach MD) Paroxysmal ventricular tachycardia S/P coronary artery stent placement Mitral regurgitation Aortic stenosis HFrEF (heart failure with reduced ejection fraction) Acute kidney injury Chronic kidney disease, stage IV (severe) Demand ischemia Acute on chronic systolic (congestive) heart failure Nausea (Acute) Diarrhea (Acute) Chronic kidney insufficiency (Acute) CHF (congestive heart failure) (Acute) Weakness (Acute) Cough PND (post-nasal drip) DNS (deviated nasal septum) Otalgia of both ears Acute bronchitis Toxic encephalopathy Radicular low back pain Spinal stenosis Pulmonary edema (Acute) Anxiety Chronic cough Physician orders for life-sustaining treatment (POLST) form indicates patient wish for full code resuscitation status CKD (chronic kidney disease) stage 3, GFR 30-59 ml/min Compression fracture GERD (gastroesophageal reflux disease) (Chronic) Dyslipidemia (Chronic) CAD (coronary artery disease) Chronic combined systolic and diastolic CHF (congestive heart failure) Left ventricular dysfunction Patient History Medical History 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 fpc 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 CLL (chronic lymphocytic leukemia) Ischemic cardiomyopathy PAF (paroxysmal atrial fibrillation) Diabetes mellitus, type 2 Depression Hypertension Seasonal allergies Cerebral artery occlusion History of CHF (congestive heart failure) Osteoarthritis of right knee GEL SHOT, MOST RECENT INJECTION FEBRUARY 2021 DM2 (diabetes mellitus, type 2) History of colon polyps Nausea and vomiting after administration of anesthetic agent Osteoarthritis Leukemia just monitoring On anticoagulant therapy Hearing deficit Stroke x3 ?----no neurologist, left arm weakness, uses cane to ambulate Hyperlipidemia Atrial fibrillation DX 2018 ? DR ROBISON - NO HX CARDIOVERSION Myocardial Infarction 2010 & 2019...STENT X 1 Asthma LAST USE LAST WEEK Surgical History Hx of cataract surgery B/L H/O heart artery stent HX ME , STENT X1 2019 History of phacoemulsification of cataract of both eyes with intraocular lens implantation History of dilatation and curettage x3 History of total left knee replacement (TKR) History of right breast biopsy x3--benign History of laparoscopy History of bilateral breast reduction surgery History of colonoscopy Family History Mother Family history of diabetes mellitus Myocardial infarction Family/Other Family history of diabetes mellitus cousin Aunt Breast cancer Father Myocardial infarction Stroke Other No family history of adverse response to anesthesia Denies family history of Ovarian cancer Prostate cancer Colorectal cancer Uterine cancer Social History Smoking Status: Never smoker Tobacco Type: Cigarettes Age Started Using Tobacco: 53; Age Quit Using Tobacco: 62; Cigarettes Per Day: HX OCCASSIONAL CIGARETTE 15 YRS AGO; Second Hand Exposure: No; Do You Dip or Chew Tobacco: No; Hx Alcohol Use: No Hx Substance Use: Yes (MEDICAL MARIJUANA) Preferred Language: Serbian Communication Ability: Effective Visual Impairment: No Limitations Hearing Ability: Use of Hearing Aid Travel Journalist Required: No Beliefs That Will Affect Care: None marital status: / Current Living Situation: Family Current Living Situation Comment: lives with daughter current occupational status: retired current occupation: worked for [employer] Feels Safe at Home: Yes Safety Concerns: Feels Safe At This Time Childhood Exposure to Second-Hand Smoke: Yes Diet: low salt Diet Comment: low sodium Dental Care, Regularly: Yes Physical Activity Frequency: Does not Exercise Seatbelt Use: always Sunscreen Use: No Assistive Devices: Walker and Wheelchair Physical Exam Physical Exam: Gen.: No acute distress. Alert. HEENT: Anicteric sclera. Neck: No JVD. No hepatojugular reflux. Normal carotid upstrokes bilaterally. Cardiac: Irregularly irregular. Tachycardic. Normal S1-S2. 2/6 mid-to-late peaking systolic ejection murmur. Pulmonary: Clear to auscultation bilaterally without wheezes, rales, or rhonchi. Abdomen: Soft, nontender, nondistended, with normoactive bowel sounds. No bruits noted. Extremities: 2+ radial pulses bilaterally. 1+ posterior tibialis pulses bilaterally. No edema or cyanosis. Results & Data Vital Signs (Past 12 Hours) Vital Signs Temp Pulse Resp BP Pulse Ox O2 Del Method 05/08/24 19:39 36.6 C 113 H 18 107/71 95 Room Air 05/08/24 16:26 36.7 C 112 H 17 106/67 93 Room Air 05/08/24 11:49 36.7 C 116 H 18 116/79 93 Room Air Laboratory Results Laboratory Results - last 24 hr 05/08/24 05:23 Sodium 135 L Potassium 3.4 L Chloride 99 Carbon Dioxide 26 Anion Gap 10 BUN 92 H Creatinine 2.62 H Est Cr Clr Drug Dosing 19.0 Est GFR ( Amer) 19.2 Est GFR (Non-Af Amer) 16.6 BUN/Creatinine Ratio 35.1 H Glucose 139 H Calcium 8.8 Magnesium 2.1 Diagnostic Findings Labs reviewed and notable for elevated BNP on 05/02/2024, elevated high- sensitivity troponin (31), abnormal renal function trending down, hypokalemia, mild hyponatremia, nonelevated transaminase levels, stable but chronically abnormal TSH, chronic anemia, chronic leukocytosis. Outside cardiac catheterization report reviewed from 2019 as summarized in HPI. Cardiac cath 06/19/2019 report reviewed as noted above in HPI. Echo images personally reviewed from 05/02/2024, demonstrating reduced LV systolic function with EF <35%. RCA and anteroseptal wall motion abnormalities otherwise, global hypokinesis. Moderate MR. Significant aortic stenosis with aortic valve area of approximately 0.8 cm and peak velocity on personal review of approximately 3.3 m/s. Dimensionless index < 0.25. ECG 05/07/2024 personally reviewed: Atrial fibrillation 93 bpm. Inferior infarct. Anteroseptal infarct. PVC versus aberrantly conducted complexes. RBBB. History and physical report reviewed. Nephrology note reviewed. Heart failure clinic notes reviewed. Chest x-ray 05/08/2024: Diffuse interstitial/vascular thickening per radiology. Telemetry personally reviewed: Initially sinus rhythm which converted to atrial fibrillation on 05/04/2024 at 8:18 AM. Mostly A-fib with RVR since then with very brief nonsustained ventricular tachycardia episodes. Medications Administered Current Inpatient Medications Acetaminophen (Acetaminophen 500 Mg Tab) 1,000 mg PO Q8H PRN PRN Reason: Pain Stop: 06/03/24 10:13 Last Admin: 05/08/24 08:28 Dose: 1,000 mg Albuterol (Albuterol Hfa 8 Gm Inhaler) 1 puffs INH Q6R PRN PRN Reason: Shortness Of Breath Stop: 06/01/24 14:00 Amiodarone HCl (Amiodarone 200 Mg Tab) 200 mg PO BIDM [facility] Stop: 06/07/24 18:59 Apixaban (Apixaban 2.5 Mg Tab) 2.5 mg PO BID VINAYAK Stop: 06/01/24 20:59 Last Admin: 05/08/24 08:29 Dose: 2.5 mg Atorvastatin Calcium (Atorvastatin 40 Mg Tab) 80 mg PO HS [facility] Stop: 06/01/24 20:59 Last Admin: 05/07/24 19:56 Dose: 80 mg Bisacodyl (Bisacodyl 5 Mg Tabec) 5 mg PO DAILY PRN PRN Reason: Constipation Stop: 06/03/24 14:59 Last Admin: 05/05/24 09:19 Dose: 5 mg Calcium Carbonate (Calcium Carbonate 500 Mg Chewable Tab) 1,000 mg PO TID PRN PRN Reason: Indigestion Stop: 06/03/24 10:10 Last Admin: 05/04/24 10:30 Dose: 1,000 mg Carvedilol (Carvedilol 3.125 Mg Tab) 3.125 mg PO BIDM [facility] Stop: 06/01/24 16:59 Last Admin: 05/08/24 17:49 Dose: 3.125 mg Clopidogrel Bisulfate (Clopidogrel Bisulfate 75 Mg Tab) 75 mg PO DAILY [facility] Stop: 06/02/24 08:59 Last Admin: 05/08/24 08:30 Dose: 75 mg Dextrose (Dextrose 50% 50 Ml Syringe) 25 - 50 ml IV UD PRN; Protocol PRN Reason: Hypoglycemia Protocol Stop: 06/01/24 12:57 Fexofenadine HCl (Fexofenadine Hcl 180 Mg Tab) 180 mg PO DAILY [facility] Stop: 06/01/24 16:14 Last Admin: 05/08/24 08:30 Dose: 180 mg Furosemide (Furosemide 20 Mg Tab) 20 mg PO QAM [facility] Stop: 06/08/24 08:59 Glucagon (Glucagon For Inj 1 Mg Vial) 1 mg SQ UD PRN; Protocol PRN Reason: Hypoglycemia Protocol Stop: 06/01/24 12:57 Glucose (Glucose 40% Gel 15 Gm Tube) 15 - 30 gm PO UD PRN; Protocol PRN Reason: Hypoglycemia Protocol Stop: 06/01/24 12:57 Glucose (Glucose 10 Tab/Tube) 4 - 8 tab PO UD PRN; Protocol PRN Reason: Hypoglycemia Treatment Stop: 06/01/24 12:57 Miscellaneous (Carbohydrates For Hypoglycemia ) 15 - 30 gm PO UD PRN PRN Reason: Hypoglycemia Protocol Stop: 06/01/24 12:57 Ondansetron HCl (Ondansetron Inj 2 Mg/Ml 2 Ml Vial) 4 mg IV Q6H PRN PRN Reason: Nausea Stop: 06/07/24 16:49 Pantoprazole Sodium (Pantoprazole 40 Mg Tab) 40 mg PO DAILY [facility] Stop: 06/02/24 08:59 Last Admin: 05/08/24 08:31 Dose: 40 mg Phenol (Chloraseptic (Phenol) 1.4% Soln 180 Ml Btl) 1 sprays MT Q3HWA PRN PRN Reason: Sore Throat Stop: 05/24/24 10:07 Last Admin: 05/08/24 09:28 Dose: 1 sprays Sertraline HCl (Sertraline Hcl 100 Mg Tablet) 100 mg PO DAILY [facility] Stop: 06/02/24 08:59 Last Admin: 05/08/24 08:31 Dose: 100 mg Spironolactone (Spironolactone 25 Mg Tab) 25 mg PO QAM [facility]INAYAK Stop: 06/05/24 09:59 Last Admin: 05/08/24 08:31 Dose: 25 mg PG Care Time/CCT Total # of Minutes Spent Total Time Spent with Patient: Total time spent is greater than 50% in coordination of care (as documented) at patient's floor/unit and/or counseling patient: Coding Level of Care Code 98731 INT INP/OBS CARE 3/75MIN Diagnoses HFrEF (heart failure with reduced ejection fraction) I50.20 Aortic stenosis I35.0 Mitral regurgitation I34.0 PAF (paroxysmal atrial fibrillation) I48.0 CAD (coronary artery disease) I25.10 Hyperlipidemia E78.5 Ischemic cardiomyopathy I25.5 S/P coronary artery stent placement Z95.5 Paroxysmal ventricular tachycardia I47.29
[2024-05-08] MEDS: AMIODARONE 200 MG TAB PO SCH (22:01)
--- NOTE | 2024-05-09 05:52 | Electrocardiogram Report ---
Test Reason : Blood Pressure : */* mmHG Vent. Rate : 93 BPM Atrial Rate : 163 BPM P-R Int : * ms QRS Dur : 128 ms QT Int : 384 ms P-R-T Axes : * 82 267 degrees QTcB Int : 477 ms Atrial fibrillation with premature ventricular or aberrantly conducted complexes Right bundle branch block Moderate voltage criteria for LVH, may be normal variant Inferior infarct , age undetermined Anteroseptal infarct (cited on or before 13-May-2019) When compared with ECG of 02-May-2024 10:14, Atrial fibrillation has replaced Sinus rhythm Right bundle branch block is now Present Inferior infarct is now Present Anteroseptal infarct is now Present Confirmed by Zack Roach ([id number]) on 05/09/2024 5:51:37 AM Referred By: REFERRED SELF Confirmed By: Zack Roach
[2024-05-09 08:28] LABS: BUN Creatinine Ratio 38.5 (10-20); Calcium 9.1 mg/dl (8.6-10.3); Creatinine Clr Calc Pharmacy 19.6 ml/min; Est GFR (African American) 20.2 ml/min; Est GFR (Non-African American) 17.4 ml/min; Magnesium 2.1 mg/dl (1.7-2.4); Potassium 3.5 mmol/L (3.5-5.1)
--- NOTE | 2024-05-09 08:53 | Nephrology Progress Note ---
Date of Service May 09, 2024 Assessment & Plan (1) Acute kidney injury: Plan: * ALLAN/CKD due to CHF. Patient is symptomatically improved following diuresis * Entresto has been held due to relative hypotension, creatinine is now trending down (2.5 today) * 05/02/24 urinalysis was negative for blood or protein * Consider renal US if renal recovery stalls * If transferred to [facility] recommend that BMP be monitored weekly until kidney function recovers * Defer outpatient follow up to fpc MD and CHF clinic (2) Chronic kidney disease, stage IV (severe): Plan: * CKD stage G4 (advanced impairment). Baseline Cr has been 1.8-2.0 w/ EGFR 26 cc/min (3) CHF (congestive heart failure): Plan: * 05/06 echocardiogram: LVEF 30-35% * Entresto being held due to relative hypotension * Continue Furosemide 20 mg po daily * Monitor daily weight, BP, volume status * Will need close outpatient follow up w/ [facility] CHF clinic. May need repeat echo once HR controlled. Continue discussions regarding possible AICD, TAVR. Admission and Anticipated Discharge Date Admission Date: May 02, 2024 Subjective Ms. Diaz was evaluated in her hospital room this morning. She denied dyspnea, angina or uremic symptoms. She hopes to transfer to [facility] soon Review of Systems Constitutional: no fever Eyes: no problem reported Ear, Nose, Mouth, Throat: no problem reported Respiratory: no cough and no dyspnea Cardiovascular: no chest pain Gastrointestinal: no abdominal pain, no nausea, no vomiting and no diarrhea/loose stools Genitourinary: no dysuria Integumentary: no rash Physical Exam Constitutional: not in distress Eyes: PERRL, conjunctivae normal, anicteric sclerae ENMT: external ear and nose normal, oropharynx normal Neck: trachea midline, no thyromegaly Respiratory: normal respiratory effort, lungs clear to auscultation Cardiovascular: Rate/Rhythm: + tachycardic Gastrointestinal (Abdomen): normal bowel sounds, soft, nontender, no hepatosplenomegaly Skin: no rashes, warm and dry Neurologic: Speech / Cognition: normal speech and normal cognition Results & Data Vital Signs (Past 12 Hours) Vital Signs Temp Pulse Pulse Resp BP Pulse Ox O2 Del Method 05/09/24 08:27 36.5 C 105 H 17 107/74 95 Room Air 05/09/24 07:29 110 H 05/09/24 02:57 36.5 C 111 H 18 114/79 97 Room Air 05/08/24 22:10 106 H 18 116/75 95 Room Air 05/08/24 21:59 107 H Laboratory Results Laboratory Results - last 24 hr 05/09/24 07:17 Sodium 135 L Potassium 3.5 Chloride 101 Carbon Dioxide 22 Anion Gap 12 H BUN 97 H Creatinine 2.52 H Est Cr Clr Drug Dosing 19.6 Est GFR ( Amer) 20.2 Est GFR (Non-Af Amer) 17.4 BUN/Creatinine Ratio 38.5 H Glucose 167 H Calcium 9.1 Magnesium 2.1 PG Care Time/CCT Total # of Minutes Spent Total Time Spent with Patient: Total time spent is greater than 50% in coordination of care (as documented) at patient's floor/unit and/or counseling patient: Coding Level of Care Code 23651 SUB INP/OBS CARE 3/50MIN Diagnoses Acute kidney injury N17.9 Chronic kidney disease, stage IV (severe) N18.4 CHF (congestive heart failure) I50.9 Heart failure chronicity: unspecified Heart failure type: unspecified (3) CHF (congestive heart failure) Heart failure chronicity: unspecified Heart failure type: unspecified Qualified Code(s): I50.9 - Heart failure, unspecified
[2024-05-09] MEDS: FUROSEMIDE 20 MG TAB PO SCH (08:59)
--- NOTE | 2024-05-09 10:01 | Cardiology Progress Note ---
Date of Service May 09, 2024 Assessment & Plan (1) HFrEF (heart failure with reduced ejection fraction): Plan: -Seems euvolemic and compensated at this time. -Back on Lasix 20 mg daily -Continue spironolactone and carvedilol. -Entresto on hold due to acute on chronic renal failure. (2) Aortic stenosis: Plan: -Likely severe. -Will consider TAVR as an outpatient. (3) PAF (paroxysmal atrial fibrillation): Plan: -Amiodarone has been increased to 200 mg twice daily. -Ventricular sponsor at rest approxione 100 bpm. -Could consider dose of intravenous digoxin, however, would hold at this time realizing her renal dysfunction. -Continue adjusted dose Eliquis. (4) CAD (coronary artery disease): Plan: -Quiescent on medical management. -Deemed inoperable when [facility], June 2019. (5) Ischemic cardiomyopathy: Plan: -LVEF currently 30 to 35%. -Question if reduced systolic function related to rapid ventricular response. -Will reassess systolic function once ventricular response controlled, or if she obtains sinus rhythm. -Will continue discussions regarding a possible ICD. (6) Paroxysmal ventricular tachycardia: Plan: -Brief episodes noted on telemetry. Admission and Anticipated Discharge Date Admission Date: May 02, 2024 Subjective The patient is resting comfortably in bed without complaints of chest pain, dyspnea, or palpitations. We have reviewed her left ventricular dysfunction, CHF, aortic stenosis, and atrial fibrillation. Her daughter, Lita, was u pdated by telephone. Physical Exam Physical Exam: In general this is a well-developed, well-nourished, white female no acute distress. HEENT is negative. Neck is supple with delayed carotid upstrokes. There are no carotid bruits. No jugular venous distention. There is no thyromegaly. Cardiovascular exam reveals an irregular rhythm with distant heart sounds. A 2/6 basal systolic murmur is noted. No S3 or S4. Lungs are clear without rales, rhonchi, or wheezes. Abdomen is soft without bruits. Extremities reveal intact radial artery pulses bilaterally. There is no peripheral edema. Results & Data Vital Signs (Past 12 Hours) Vital Signs Temp Pulse Pulse Resp BP Pulse Ox O2 Del Method 05/09/24 09:02 Room Air 05/09/24 08:27 36.5 C 105 H 17 107/74 95 Room Air 08/27/24 07:29 110 H 05/09/24 02:57 36.5 C 111 H 18 114/79 97 Room Air 05/08/24 22:10 106 H 18 116/75 95 Room Air 05/08/24 21:59 107 H Diagnostic Findings athletic monitor notes atrial fibrillation with a ventricular sponsor of approximately 100 bpm. Ventricular response increases with activity. PG Care Time/CCT Total # of Minutes Spent Total Time Spent with Patient: Total time spent is greater than 50% in coordination of care (as documented) at patient's floor/unit and/or counseling patient: Coding Level of Care Code 45675 SUB INP/OBS CARE 3/50MIN Diagnoses HFrEF (heart failure with reduced ejection fraction) I50.20 Aortic stenosis I35.0 PAF (paroxysmal atrial fibrillation) I48.0 CAD (coronary artery disease) I25.10 Ischemic cardiomyopathy I25.5 Paroxysmal ventricular tachycardia I47.29
[2024-05-09] MEDS: POTASSIUM CHLORIDE CRTAB 20 MEQ TABCR PO STA (12:37)
--- NOTE | 2024-05-09 16:01 | Hospitalist Progress Note ---
Date of Service May 09, 2024 Assessment & Plan (1) Acute on chronic systolic (congestive) heart failure: Plan: -Patient's Lasix dosing was increased initially to 80 mg daily- now decreased back to 20 mg daily per nephrology/Cardio recommendations -Cardiology consulted:Recommendations appreciated -Monitor daily weights -Monitor strict I's and O's -CXR 05/08: mild interstitial pulmonary edema -Of note: Metolazone was also administered once on May 04. Brisk diuresis ensued. -Echo 05/02: LVEF decreased to 30-35% -HR control with plans to reevaluate EF once tachycardia improves (2) Demand ischemia: Plan: -Troponin mildly elevated on admission without chest pain or acute EKG changes. -Cardiology consulted: Continuing to improve HR and reevaluate EF. May need ICD eval if persistent (3) PAF (paroxysmal atrial fibrillation): Plan: -Currently in a fib -Noted tachycardia <110 -Cardiology consulted: Increased amiodarone to BID dosing with hopes of converting to sinus -Continue Carvedilol- dose limited by BP and weakness outpatient. Will discuss possible switching to metoprolol. -AC: Continue Eliquis (4) Weakness: Plan: -OT and PT while hospitalized. Rehab recommended upon DC (5) CAD (coronary artery disease): Plan: -Continue current regimen -Cardiology consulted: Recommendations appreciated- will try to slow heart rate down to better evaluate EF. -Reduced EF noted on echo- will try to slow heart rate down to better evaluate. -May need ICD in the future (6) CLL (chronic lymphocytic leukemia): Plan: -Stable. Serial labs. -Outpatient oncology follow-up as scheduled. -She is receiving parenteral iron replacement while hospitalized. -She received 3 days of parenteral Venofer iron replacement therapy. (7) Diabetes mellitus, type 2: Plan: -Pre-dm- patient and family declined insulin -Educated on diet and lifestyle modifications (8) Chronic kidney disease, stage IV (severe): Plan: -Creatinine is now downtrending -Nephro consulted: recommendations appreciated -Entresto on hold- continue to hold per nephrology and cardiology- add back when indicated -Per prior team Entresto has been discontinued to eliminate the ARB. Spironolactone has been restarted. -Monitor renal function closely Plan Called and updated daughter over the phone Admission and Anticipated Discharge Date Admission Date: May 02, 2024 Subjective Patient seen and evaluated bedside Patient is currently in NAD HR still remains slightly elevated- afib rate around 100 Denies any acute complaints at present Review of Systems Review of Systems: As indicated in HPI Physical Exam Physical Exam: General-alert. Oriented. No fever HEENT-head atraumatic and normocephalic, extraocular muscles intact Neck-no lymphadenopathy or thyromegaly, trachea midline Chest-bibasilar inspiratory rales. No wheezing. No rhonchi Cardiac-regular rate and rhythm, normal S1 and S2 Abdomen-normal bowel sounds, no hepatosplenomegaly Tqvwvyohwoh-5-3+ pitting edema bilateral lower extremities below the knees has lessened Neuro-cranial nerves II through XII intact, motor and sensory function within normal limits, strength symmetrical with generalized weakness, no focal deficits Psych-normal affect, normal mood Results & Data Results & Data Vital Signs (Past 12 Hours) Vital Signs Temp Pulse Pulse Resp BP BP Pulse Ox 05/09/24 14:04 102 H 05/09/24 11:41 36.3 C L 90 17 102/70 95 05/09/24 09:02 05/09/24 08:27 36.5 C 105 H 17 107/74 95 05/09/24 07:29 110 H O2 Del Method 05/09/24 14:04 05/09/24 11:41 Room Air 05/09/24 09:02 Room Air 05/09/24 08:27 Room Air 05/09/24 07:29 PG Care Time/CCT Total # of Minutes Spent Total Time Spent with Patient: Total time spent is greater than 50% in coordination of care (as documented) at patient's floor/unit and/or counseling patient: Coding Level of Care Code 87312 SUB INP/OBS CARE 2/35MIN Diagnoses Acute on chronic systolic (congestive) heart failure I50.23 Demand ischemia I24.89 PAF (paroxysmal atrial fibrillation) I48.0 Weakness R53.1 CAD (coronary artery disease) I25.10 CLL (chronic lymphocytic leukemia) C91.90 Diabetes mellitus, type 2 E11.9 Chronic kidney disease, stage IV (severe) N18.4
[2024-05-10 07:15] LABS: BUN Creatinine Ratio 41.4 (10-20); Calcium 9.3 mg/dl (8.6-10.3); Est GFR (African American) 23.5 ml/min; Est GFR (Non-African American) 20.3 ml/min; Potassium 3.4 mmol/L (3.5-5.1)
[2024-05-10] MEDS: POTASSIUM CHLORIDE CRTAB 20 MEQ TABCR PO STA ×2 (08:40→18:14)
--- NOTE | 2024-05-10 09:00 | Nephrology Progress Note ---
Date of Service May 10, 2024 Assessment & Plan (1) Acute kidney injury: Plan: * ALLAN/CKD due to CHF. Patient is symptomatically improved following diuresis * Entresto has been held due to relative hypotension, creatinine is now trending down (2.2 today) * 05/02/24 urinalysis was negative for blood or protein * If transferred to [facility] recommend that BMP be monitored weekly until kidney function recovers * Def[facility] outpatient follow up [facility]F [facility] * No further nephrology evaluation indicated at this time. Will sign off. Please call if further assistance is needed (2) Chronic kidney disease, stage IV (severe): Plan: * CKD stage G4 (advanced impairment). Baseline Cr has been 1.8-2.0 w/ EGFR 26 cc/min (3) CHF (congestive heart failure): Plan: * 05/06 echocardiogram: LVEF 30-35% * Entresto being held due to relative hypotension * Continue Furosemide 20 mg po daily * Monitor daily weight, BP, volume status * Will need close outpatient follow up w/ [facility] CHF clinic. May need repeat echo once HR controlled. Cardiology will continue discussions regarding possible AICD, TAVR as outpatient. Admission and Anticipated Discharge Date Admission Date: May 02, 2024 Subjective Ms. Diaz was evaluated in her hospital room this morning. She denied dyspnea, angina or uremic symptoms. She hopes to transfer to [facility] soon Review of Systems Constitutional: no fever Eyes: no problem reported Ear, Nose, Mouth, Throat: no problem reported Respiratory: no cough and no dyspnea Cardiovascular: no chest pain Gastrointestinal: no abdominal pain, no nausea, no vomiting and no diarrhea/loose stools Genitourinary: no dysuria Integumentary: no rash Physical Exam Constitutional: not in distress Eyes: PERRL, conjunctivae normal, anicteric sclerae ENMT: external ear and nose normal, oropharynx normal Neck: trachea midline, no thyromegaly Respiratory: normal respiratory effort, lungs clear to auscultation Cardiovascular: Rate/Rhythm: + tachycardic Gastrointestinal (Abdomen): normal bowel sounds, soft, nontender, no hepatosplenomegaly Skin: no rashes, warm and dry Neurologic: Speech / Cognition: normal speech and normal cognition Results & Data Vital Signs (Past 12 Hours) Vital Signs Temp Pulse Pulse Resp BP Pulse Ox O2 Del Method 05/10/24 07:57 108 H 08/28/24 07:51 36.4 C L 133 H 16 110/70 94 Room Air 05/10/24 07:34 106 H 05/10/24 02:38 36.4 C L 109 H 18 109/68 94 Room Air 05/09/24 23:10 36.5 C 99 H 16 98/67 L 95 Room Air 05/09/24 21:46 103 H Laboratory Results Laboratory Results - last 24 hr 05/10/24 05:27 Sodium 137 Potassium 3.4 L Chloride 102 Carbon Dioxide 24 Anion Gap 11 BUN 92 H Creatinine 2.22 H D Est Cr Clr Drug Dosing 22.0 Est GFR ( Amer) 23.5 Est GFR (Non-Af Amer) 20.3 BUN/Creatinine Ratio 41.4 H Glucose 133 H Calcium 9.3 PG Care Time/CCT Total # of Minutes Spent Total Time Spent with Patient: Total time spent is greater than 50% in coordination of care (as documented) at patient's floor/unit and/or counseling patient: Coding Level of Care Code 55994 SUB INP/OBS CARE 3/50MIN Diagnoses Acute kidney injury N17.9 Chronic kidney disease, stage IV (severe) N18.4 CHF (congestive heart failure) I50.9 Heart failure chronicity: unspecified Heart failure type: unspecified (3) CHF (congestive heart failure) Heart failure chronicity: unspecified Heart failure type: unspecified Qualified Code(s): I50.9 - Heart failure, unspecified
--- NOTE | 2024-05-10 10:00 | Cardiology Progress Note ---
Date of Service May 10, 2024 Assessment & Plan (1) HFrEF (heart failure with reduced ejection fraction): Plan: -Euvolemic and compensated at this time. -Continue Lasix 20 mg daily. -Continue spironolactone and carvedilol. -Entresto on hold due to acute on chronic renal failure. (2) Aortic stenosis: Plan: -Likely severe. -Will consider TAVR as an outpatient. (3) PAF (paroxysmal atrial fibrillation): Plan: -Amiodarone has been increased to 200 mg twice daily. -Ventricular response still elevated. -Would try IV digoxin 0.125 mg this morning, repeat x 1 in 4 hours if necessary. -Continue adjusted dose Eliquis. (4) CAD (coronary artery disease): Plan: -Quiescent on medical management. -Deemed inoperable when [facility], June 2019. (5) Ischemic cardiomyopathy: Plan: -LVEF currently 30 to 35%. -Question if reduced systolic function related to rapid ventricular response. -Will reassess systolic function once ventricular response controlled, or if she obtains sinus rhythm. -Will continue discussions regarding a possible ICD. (6) Paroxysmal ventricular tachycardia: Plan: -Brief episodes noted on telemetry. Admission and Anticipated Discharge Date Admission Date: May 02, 2024 Subjective The patient is resting comfortably in the bedside chair without complaints of chest pain, dyspnea, or palpitations. Physical Exam Physical Exam: In general this is a well-developed, well-nourished, white female no acute distress. HEENT is negative. Neck is supple with delayed carotid upstrokes. There are no carotid bruits. No jugular venous distention. There is no thyrome amrit. Cardiovascular exam reveals an irregular rhythm with distant heart sounds. A 2/6 basal systolic murmur is noted. No S3 or S4. Lungs are clear without rales, rhonchi, or wheezes. Abdomen is soft without bruits. Extremities reveal intact radial artery pulses bilaterally. There is no peripheral edema. 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
[2024-05-10] MEDS: DIGOXIN 125 MCG in SYRINGE 9.5 ML IV ONE ×2 (10:04→16:26)
--- NOTE | 2024-05-10 16:49 | Hospitalist Progress Note ---
Date of Service May 10, 2024 Assessment & Plan (1) Acute on chronic systolic (congestive) heart failure: Plan: -Patient's Lasix dosing was increased initially to 80 mg daily- now decreased back to 20 mg daily per nephrology/Cardio recommendations -Cardiology consulted:Recommendations appreciated -Monitor daily weights -Monitor strict I's and O's -CXR 05/08: mild interstitial pulmonary edema -Of note: Metolazone was also administered once on May 04. Brisk diuresis ensued. -Echo 05/02: LVEF decreased to 30-35% -HR control with plans to reevaluate EF once tachycardia improves- trialing IV digoxin today for better rate control (2) PAF (paroxysmal atrial fibrillation): Plan: -Currently in a fib -Noted tachycardia -Cardiology consulted: Cardiology increased amiodarone to BID dosing with hopes of converting to sinus -Discussed with Cardiology- Trial dose of IV digoxin 0.125 mcg- will repeat dose after 4 hours if needed -Continue Carvedilol- dose limited by BP and weakness outpatient. May consider switching to Metoprolol due to BP constraints if digoxin fails and further heart rate control needed. -AC: Continue Eliquis (3) Demand ischemia: Plan: -Troponin mildly elevated on admission without chest pain or acute EKG changes. -Cardiology consulted: Continuing to improve HR and reevaluate EF. May need ICD eval if persistent (4) Weakness: Plan: -OT and PT while hospitalized. Rehab recommended upon DC (5) CAD (coronary artery disease): Plan: -Continue current regimen -Cardiology consulted: Recommendations appreciated- will try to slow heart rate down to better evaluate EF. -Reduced EF noted on echo- will try to slow heart rate down to better evaluate. -May need ICD in the future (6) CLL (chronic lymphocytic leukemia): Plan: -Stable. Serial labs. -Outpatient oncology follow-up as scheduled. -She is receiving parenteral iron replacement while hospitalized. -She received 3 days of parenteral Venofer iron replacement therapy. (7) Diabetes mellitus, type 2: Plan: -Pre-dm- patient and family declined insulin -Educated on diet and lifestyle modifications (8) Chronic kidney disease, stage IV (severe): Plan: -Creatinine is now downtrending- continues to improve -Nephro consulted: recommendations appreciated -Entresto on hold- continue to hold per nephrology and cardiology- add back when indicated -Spironolactone has been restarted. -Monitor renal function closely Plan Addendum: In the afternoon had a run of 73 beats of V tach- discussed with cardiology STAT. Plan to switch po amiodarone to IV infusion, Transfer orders to PCU. On examination remains hemodynamically stable -Discussed with RN close hemodynamic monitoring Admission and Anticipated Discharge Date Admission Date: May 02, 2024 Subjective Patient seen and evaluated bedside Patient is currently in NAD HR still tachycardic this AM Denies chest pain, palpitations, SOB, fevers, chills, nausea or vomiting Review of Systems Review of Systems: As indicated in HPI Physical Exam Physical Exam: General-alert. Oriented. No fever HEENT-head atraumatic and normocephalic, extraocular muscles intact Neck-no lymphadenopathy or thyromegaly, trachea midline Chest-bibasilar inspiratory rales. No wheezing. No rhonchi Cardiac-tachycardic rate, and irregular rhythm, normal S1 and S2 Abdomen-normal bowel sounds, no hepatosplenomegaly [id number]-[id number]+ pitting edema bilateral lower extremities below the knees has lessened Neuro-cranial nerves II through XII intact, motor and sensory function within normal limits, strength symmetrical with generalized weakness, no focal deficits Psych-normal affect, normal mood Results & Data Results & Data Vital Signs (Past 12 Hours) Vital Signs Temp Pulse Pulse Resp BP Pulse Ox O2 Del Method 05/10/24 16:26 111 H 05/10/24 16:24 111 H 112/75 05/10/24 15:38 36.5 C 97 H 16 96/68 L 94 Room Air 05/10/24 15:22 120 H 05/10/24 14:10 Room Air 05/10/24 10:04 109 H 05/10/24 07:57 108 H 05/10/24 07:51 36.4 C L 133 H 16 110/70 94 Room Air 05/10/24 07:34 106 H PG Care Time/CCT Total # of Minutes Spent Total Time Spent with Patient: Total time spent is greater than 50% in coordination of care (as documented) at patient's floor/unit and/or counseling patient: Coding Level of Care Code 81006 SUB INP/OBS CARE 2/35MIN Diagnoses Acute on chronic systolic (congestive) heart failure I50.23 PAF (paroxysmal atrial fibrillation) I48.0 Demand ischemia I24.89 Weakness R53.1 CAD (coronary artery disease) I25.10 CLL (chronic lymphocytic leukemia) C91.90 Diabetes mellitus, type 2 E11.9 Chronic kidney disease, stage IV (severe) N18.4
[2024-05-10] MEDS ORDERED: 0.2 MICRON FILTER SET 1 EACH IV ONE (19:01)
[2024-05-10] MEDS: AMIODARONE / D5W 360 MG/200 ML BAG IV SCH (19:34)
[2024-05-11] MEDS: ONDANSETRON INJ 2 MG/ML 2 ML VIAL IV PRN (09:11)
--- NOTE | 2024-05-11 09:41 | Hospitalist Progress Note ---
Date of Service May 11, 2024 Assessment & Plan (1) HFrEF (heart failure with reduced ejection fraction): Plan: Presented with acute on chronic HFrEF and a gradual decline in weakness. Chest x-ray on admission with patchy right basilar densities favoring subsegmental atelectasis. Subsequent chest x-ray with small bilateral pleural effusions and pulmonary edema with cardiomegaly. Was diuresed aggressively initially with higher doses of Lasix and 1 dose of metolazone, with rising creatinine/ALLAN Lasix now decreased back to 20 mg p.o. daily per nephrology/Cardio recommendations Echocardiogram now with severe aortic stenosis, moderate to severe MR, EF 30- 35%, positive wall motion abnormalities. Has a known history of CAD and was not a candidate for CABG when evaluated several years ago Now with V. tach/torsades on amiodarone drip Cardiology consulted:Recommendations appreciated Monitor daily weights-weight is down 8 kg Monitor strict I's and O's-net -6.9 L Continue rate control of A-fib-was given 1 dose of IV digoxin, continues on carvedilol. Entresto has been held for renal function and continues on spironolactone. Not a candidate for SGLT2 due to renal function HR control with plans to reevaluate EF once tachycardia improves- trialing IV digoxin today for better rate control (2) Paroxysmal ventricular tachycardia: Plan: With an episode of 78 beats of V. tach/torsades on 05/10, now on amiodarone drip Appreciate cardiology consultation-plan for ICD placement tomorrow Keep electrolytes replete (3) Aortic stenosis: Plan: Moderate to severe but more severe likely due to low flow from poor EF as per cardiology Needs outpatient evaluation for TAVR which will be arranged by her primary manager of environmental services Avoid overdiuresis (4) Chronic kidney disease, stage IV (severe): Plan: -Creatinine baseline over the last year has been 1.4-2.0, with acute kidney injury here now improving with creatinine back to 2.1 -Nephro consulted: recommendations appreciated -Continue to hold Entresto but remains on low-dose Lasix and spironolactone -Monitor renal function closely (5) PAF (paroxysmal atrial fibrillation): Plan: -With ongoing atrial fibrillation while hospitalized with uncontrolled rates -Cardiology consulted: Cardiology increased amiodarone to BID dosing with hopes of converting to sinus and now on amiodarone drip due to torsades Received 1 dose of IV digoxin on 05/10 -Continue Carvedilol- dose limited by BP and weakness outpatient. May consider switching to Metoprolol due to BP constraints if digoxin fails and further heart rate control needed. -AC: Continue Eliquis but placed on hold for ICD placement tomorrow (6) Demand ischemia: Plan: -Troponin mildly elevated on admission without chest pain or acute EKG changes. Has a known history of CAD with stents and was referred for CABG eval but deemed not a candidate several years ago at [facility] -Cardiology consulted Continue Plavix, Eliquis, carvedilol (7) Weakness: Plan: -OT and PT while hospitalized. Rehab recommended upon DC (8) CAD (coronary artery disease): Plan: As noted above (9) CLL (chronic lymphocytic leukemia): Plan: -Stable. Serial labs. -Outpatient oncology follow-up as scheduled. -She received parenteral iron replacement while hospitalized. For anemia, check B12, folate, iron studies in the morning (10) Diabetes mellitus, type 2: Plan: -Pre-dm- patient and family declined insulin -Educated on diet and lifestyle modifications (11) Stroke: Plan: With a history of such Continue Plavix, Eliquis Plan Anemia-stable at 9-10, received IV iron Allergies-continue Sho GERD-continue PPI Anxiety/depression-add on lorazepam as needed for anxiety, continue sertraline Meningioma-noted on brain MRI-chronic and follow as an outpatient Abnormal TSH-TSH recently elevated at 5, is on amiodarone-follow as an outpatient DVT prophylaxis-Eliquis Disposition-continued stay in PCU, with eventual discharge to rehab after ICD placement and recovery Admission and Anticipated Discharge Date Admission Date: May 02, 2024 Subjective Patient feels tired and weak but denies chest pains or shortness of breath. I discussed her care with cardiology. The patient later in the day was feeling anxious about having a procedure and requested something for anxiety. Telemetry with atrial fibrillation and PVCs with rates in the 90s to 100s, no further torsades or V. tach Physical Exam Constitutional: WD/WN, vitals as above Respiratory: normal respiratory effort, lungs clear to auscultation Cardiovascular: Rate/Rhythm: regular rate and + irregularly irregular Heart Sounds: + murmur (3/6 DEBRA at the RUSB) Extremities: no edema Gastrointestinal (Abdomen): normal bowel sounds, soft, nontender, no hepatosplenomegaly Psychiatric: A+Ox3, euthymic affect Results & Data Results & Data Vital Signs (Past 12 Hours) Vital Signs Temp Pulse Resp BP Pulse Ox O2 Del Method 05/11/24 08:09 36.7 C 105 H 18 112/70 95 Room Air 05/11/24 04:19 36.7 C 101 H 18 110/82 97 Room Air 05/10/24 23:57 36.8 C 110 H 18 133/97 96 Room Air Laboratory Results CBC, BMP, magnesium reviewed PG Care Time/CCT Total # of Minutes Spent Total Time Spent with Patient: Total time spent is greater than 50% in coordination of care (as documented) at patient's floor/unit and/or counseling patient: Coding Level of Care Code 51467 SUB INP/OBS CARE 3/50MIN Diagnoses HFrEF (heart failure with reduced ejection fraction) I50.20 Paroxysmal ventricular tachycardia I47.29 Aortic stenosis I35.0 Chronic kidney disease, stage IV (severe) N18.4 PAF (paroxysmal atrial fibrillation) I48.0 Demand ischemia I24.89 Weakness R53.1 CAD (coronary artery disease) I25.10 CLL (chronic lymphocytic leukemia) C91.90 Diabetes mellitus, type 2 E11.9 Stroke I63.9
[2024-05-11 09:46] LABS: Basophils # (auto) 0.05 K/uL (0.00-0.20); Basophils % (auto) 0.4 %; Eosinophils # (auto) 0.39 K/uL (0.00-0.50); Eosinophils % (auto) 3.2 %; Hematocrit (blood only) 31.5 % (37.0-47.0); Immature Granulocytes # (auto) 0.03 K/uL (0.01-0.20); Immature Granulocytes % (auto) 0.2 %; Lymphocytes % (auto) 32.8 %; Mean Corpuscular Hemoglobin 30.4 pg (25.0-34.0); Mean Corpuscular Hgb Conc 31.7 g/dL (32.0-36.0); Mean Corpuscular Volume 95.7 fL (80.0-100.0); Mean Platelet Volume 10.2 fL (9.4-12.4); Monocytes # (auto) 0.83 K/uL (0.11-0.59); Monocytes % (auto) 6.8 %; Neutrophils # (auto) 6.88 K/uL (1.40-6.50); Neutrophils % (auto) 56.6 %; Platelet Count 254 K/uL (130-400); RDW Coefficient of Variation 15.3 % (11.5-14.5); RDW Standard Deviation 53.5 fL (36.4-46.3); Red Blood Count 3.29 M/uL (4.20-5.40); White Blood Count 12.18 K/ul (4.8-10.8)
[2024-05-11 10:36] LABS: BUN Creatinine Ratio 40.6 (10-20); Calcium 9.5 mg/dl (8.6-10.3); Creatinine Clr Calc Pharmacy 22.5 ml/min; Est GFR (African American) 24.2 ml/min; Est GFR (Non-African American) 20.8 ml/min; Magnesium 2.1 mg/dl (1.7-2.4); Potassium 4.1 mmol/L (3.5-5.1)
[2024-05-11] MEDS: LORazepam 0.5 MG TAB PO PRN (17:07)
--- NOTE | 2024-05-11 21:22 | Cardiology Consultation ---
Date of Consultation May 11, 2024 Assessment & Plan (1) HFrEF (heart failure with reduced ejection fraction): (2) Aortic stenosis: This is newly discovered during this admission. Severity and question due to possible low output heart failure. This can be evaluated further in the outpatient setting (3) PAF (paroxysmal atrial fibrillation): She continues to have some elevated heart rates. I think we will convert her amiodarone back to oral formulation. Will attempt some uptitration of her medical regimen for better rate control. Not a great candidate for cardioversion in her current state with severely reduced LV function and severe aortic stenosis. (4) CAD (coronary artery disease): -Quiescent on medical management. -Deemed inoperable when [facility], June 2019. (5) Ischemic cardiomyopathy: Her medical therapy was de-escalated based on declining renal function. Currently only on carvedilol and spironolactone. Her degree of LV dysfunction puts her in a category of patients who would generally benefit from an ICD as primary prevention against sudden cardiac . She has several severe comorbidities however and longevity may be limited. However, given her episode of ventricular tachycardia and severely reduced LV systolic function we discussed the option of an ICD. I discussed this with the patient and her daughter both of whom are in agreement. (6) Paroxysmal ventricular tachycardia: Nonsustained episodes. More significant episode recently which was polymorphic in nature. This would suggest an element of ischemic heart disease which she is known to have or possibly drug-induced. No long QT on her current EKG. Amiodarone is known to lengthen the QT interval but generally not assoc iated with torsades. Plan Extensive discussion with patient, family and care team regarding the best and most immediate approach for this patient and her severe cardiac disease. Decision made to proceed with ICD tomorrow. History of Present Illness Reason for Consultation: Ventricular tachycardia, cardiomyopathy Requesting Physician: Enriqueta Attending Physician: Danielle Huitron MD History of Present Illness The patient is an 78-year-old woman with a known history of severe coronary disease status post percutaneous intervention in 2019. She is also known to have an element of reduced LV systolic function. Currently admitted to our facility with decompensated heart failure in the setting of sustained atrial fibrillation and associated high ventricular rates. Attempt at rate control has been made and she was also placed on amiodarone bolus for rate control and possible conversion to sinus rhythm. Patient was noted on telemetry to have an episode of polymorphic ventricular tachycardia. Repeat echocardiogram during this hospitalization also demonstrated severely reduced LV systolic function. The patient's main concern is weakness and an inability to ambulate. She has had some difficulty with walking and is planning on inpatient rehab for strengthening. Not currently experiencing symptoms of dyspnea at rest. No dizziness or lightheadedness. She cannot recall the episode of ventricular tachycardia which occurred yesterday evening. She has been unaware of any palpitations despite being in atrial fibrillation. She denied any history of syncope. No chest pain. Allergies Allergy/AdvReac Type Severity Reaction Status Date / Time bee venom protein (honey bee) Allergy Severe Anaphylaxis Verified 04/27/24 15:19 Penicillins Allergy Severe Rash, Verified 04/27/24 15:19 anaphylaxis Sulfa (Sulfonamide Allergy Severe Rash, Verified 04/27/24 15:19 Antibiotics) anaphylaxis Home Medications Medication Instructions Recorded Confirmed Type abaloparatide (Tymlos) 80 mcg subcut QAM 06/19/23 05/02/24 History apixaban 5 mg tablet (Eliquis) 5 mg PO BID #180 tabs 08/25/23 05/02/24 Rx atorvastatin 80 mg tablet (Lipitor) 80 mg PO HS #90 tabs 08/25/23 05/02/24 Rx clopidogrel 75 mg tablet 75 mg PO DAILY #90 tabs 08/25/23 05/02/24 Rx folic acid 1 mg tablet 1 mg PO DAILY #90 tabs 08/25/23 05/02/24 Rx lancets 31 gauge (Comfort Touch #100 ea 08/25/23 04/27/24 Rx Ultra Thin Lancets) nitroglycerin 0.4 mg sublingual 0.4 mg sublingual UD PRN Chest 08/25/23 05/02/24 Rx tablet (Nitrostat) Pain #25 tabs sacubitril 97 mg-valsartan 103 mg 1 tab PO BID #120 tabs 08/25/23 05/02/24 Rx tablet (Entresto) sertraline 100 mg tablet (Zoloft) 100 mg PO DAILY #90 tabs 08/25/23 05/02/24 Rx blood sugar diagnostic (OneTouch #100 ea 09/01/23 04/27/24 Rx Verio test strips) furosemide 20 mg tablet 20 mg PO QAM #90 tabs 11/10/23 05/02/24 Rx fexofenadine 180 mg tablet 180 mg PO Q24H #90 tabs 11/24/23 05/02/24 Rx fluticasone propionate 50 1 spray intranasal QAM #48 mL 12/02/23 05/02/24 Rx mcg/actuation nasal spray,suspension polyethylene glycol 3350 17 17 g PO DAILY #119 grams 12/20/23 05/02/24 Rx gram/dose oral powder (Miralax) pantoprazole 40 mg tablet,delayed 40 mg PO DAILY #90 tabs 01/18/24 05/02/24 Rx release amiodarone 200 mg tablet 200 mg PO QAM #90 tabs 03/07/24 05/02/24 Rx spironolactone 25 mg tablet 25 mg PO DAILY #90 tabs 03/07/24 05/02/24 Rx albuterol sulfate 90 mcg/actuation 1 puff inhalation Q6H PRN 03/21/24 05/02/24 Rx aerosol inhaler Shortness Of Breath #8.5 grams cholecalciferol (vitamin D3) 50 2,000 unit PO QAM #90 tabs 03/27/24 05/02/24 Rx mcg (2,000 unit) tablet triamcinolone acetonide 0.5 % 1 applic topical BID #15 grams 04/21/24 05/02/24 Rx topical ointment carvedilol 6.25 mg tablet 3.125 mg (1/2 x 6.25 mg) PO BID 04/27/24 05/02/24 Rx #180 tabs prednisone 10 mg tablet 10 mg PO UD 05/02/24 05/02/24 History mecobalamin (vitamin B12) 1,000 1,000 mcg sublingual DAILY #90 tabs 05/09/24 Rx mcg disintegrating tablet,sublingual Patient History Medical History 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 snf 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 CLL (chronic lymphocytic leukemia) Ischemic cardiomyopathy PAF (paroxysmal atrial fibrillation) Diabetes mellitus, type 2 Depression Hypertension Seasonal allergies Cerebral artery occlusion History of CHF (congestive heart failure) Osteoarthritis of right knee GEL SHOT, MOST RECENT INJECTION FEBRUARY 2021 DM2 (diabetes mellitus, type 2) History of colon polyps Nausea and vomiting after administration of anesthetic agent Osteoarthritis Leukemia just monitoring On anticoagulant therapy Hearing deficit Stroke x3 ?--2010/2011--no neurologist, left arm weakness, uses cane to ambulate Hyperlipidemia Atrial fibrillation DX 2018 ? DR KENNEDY - NO HX CARDIOVERSION Myocardial Infarction 2010 & 2019...STENT X 1 Asthma LAST USE LAST WEEK Surgical History Hx of cataract surgery B/L H/O heart artery stent HX [place] , STENT X1 2019 History of phacoemulsification of cataract of both eyes with intraocular lens implantation History of dilatation and curettage x3 History of total left knee replacement (TKR) History of right breast biopsy x3--benign History of laparoscopy History of bilateral breast reduction surgery History of colonoscopy Family History Mother Family history of diabetes mellitus Myocardial infarction Family/Other Family history of diabetes mellitus cousin Aunt Breast cancer Father Myocardial infarction Stroke Other No family history of adverse response to anesthesia Denies family history of Ovarian cancer Prostate cancer Colorectal cancer Uterine cancer Social History Smoking Status: Never smoker Tobacco Type: Cigarettes Age Started Using Tobacco: 53; Age Quit Using Tobacco: 62; Cigarettes Per Day: HX OCCASSIONAL CIGARETTE 15 YRS AGO; Second Hand Exposure: No; Do You Dip or Chew Tobacco: No; Hx Alcohol Use: No Hx Substance Use: No Preferred Language: Lao Communication Ability: Effective Visual Impairment: No Limitations Hearing Ability: Use of Hearing Aid Air Traffic Control Manager Required: No Beliefs That Will Affect Care: None marital status: / Current Living Situation: Family Current Living Situation Comment: lives with daughter current occupational status: retired current occupation: worked for [employer] Feels Safe at Home: Yes Childhood Exposure to Second-Hand Smoke: Yes Diet: low salt Diet Comment: low sodium Dental Care, Regularly: Yes Physical Activity Frequency: Does not Exercise Seatbelt Use: always Sunscreen Use: No Assistive Devices: Walker and Wheelchair Review of Systems Review of Systems: Per HPI Physical Exam Physical Exam: She is alert and oriented x3. Mood affect appear normal. She answered all questions appropriately. HEENT: Sclerae are anicteric. Pupils are equal and reactive to light and accommodation. Extraocular movements were intact. Neuro: Cranial nerves intact Lungs: Some reduced breath sounds in the bases. Occasional crackle. No expiratory wheezing.. She has normal respiratory effort without use of accessory muscles. There is normal pulmonary excursion. Cardiac: The rhythm was irregular. S1 and S2 were normal. Crescendo systolic murmur variable intensity. The PMI was not markedly displaced on palpation. Abdomen: The abdomen was soft and nontender. Extremities: Patient has bilateral radial pulses that are equal in intensity. There is no evidence cyanosis or clubbing. There was no evidence of significant peripheral edema bilaterally. Skin: There are no rashes noted on examination today. Results & Data Vital Signs (Past 12 Hours) Vital Signs Temp Pulse Pulse Resp BP Pulse Ox O2 Del Method 05/11/24 20:00 Room Air 05/11/24 19:28 36.5 C 104 H 18 109/79 95 Room Air 05/11/24 15:15 36.4 C L 97 H 18 107/80 96 Room Air 05/11/24 14:45 91 H 05/11/24 11:27 36.6 C 97 H 18 105/72 97 Room Air PG Care Time/CCT Total # of Minutes Spent Total Time Spent with Patient: Total time spent is greater than 50% in coordination of care (as documented) at patient's floor/unit and/or counseling patient: Coding Level of Care Code 66064 INT INP/OBS CARE 3/75MIN Diagnoses HFrEF (heart failure with reduced ejection fraction) I50.20 Aortic stenosis I35.0 PAF (paroxysmal atrial fibrillation) I48.0 CAD (coronary artery disease) I25.10 Ischemic cardiomyopathy I25.5 Paroxysmal ventricular tachycardia I47.29
[2024-05-12 06:10] LABS: Basophils # (auto) 0.08 K/uL (0.00-0.20); Basophils % (auto) 0.8 %; Eosinophils # (auto) 0.41 K/uL (0.00-0.50); Eosinophils % (auto) 3.9 %; Hematocrit (blood only) 30.7 % (37.0-47.0); Hemoglobin 9.9 g/dl (12.0-16.0); Immature Granulocytes # (auto) 0.04 K/uL (0.01-0.20); Immature Granulocytes % (auto) 0.4 %; Lymphocytes # (auto) 4.13 K/uL (1.20-3.40); Lymphocytes % (auto) 38.9 %; Mean Corpuscular Hemoglobin 30.8 pg (25.0-34.0); Mean Corpuscular Hgb Conc 32.2 g/dL (32.0-36.0); Mean Corpuscular Volume 95.6 fL (80.0-100.0); Mean Platelet Volume 10.2 fL (9.4-12.4); Monocytes # (auto) 0.75 K/uL (0.11-0.59); Monocytes % (auto) 7.1 %; Neutrophils % (auto) 48.9 %; Platelet Count 253 K/uL (130-400); RDW Coefficient of Variation 15.2 % (11.5-14.5); RDW Standard Deviation 53.4 fL (36.4-46.3); Red Blood Count 3.21 M/uL (4.20-5.40); White Blood Count 10.61 K/ul (4.8-10.8)
[2024-05-12 06:29] LABS: BUN Creatinine Ratio 39.4 (10-20); Calcium 9.1 mg/dl (8.6-10.3); Creatinine Clr Calc Pharmacy 20.7 ml/min; Est GFR (African American) 21.8 ml/min; Est GFR (Non-African American) 18.8 ml/min; Magnesium 2.2 mg/dl (1.7-2.4); Potassium 4.3 mmol/L (3.5-5.1)
[2024-05-12 06:46] LABS: Ferritin 362.5 ng/ml (8-388)
[2024-05-12 06:49] LABS: Folate (Folic Acid),Ser orPlas 19.84 ng/ml (>5.38)
[2024-05-12 06:50] LABS: Vitamin B12 > 1500 pg/ml (180-914)
--- NOTE | 2024-05-12 14:56 | Pre Anesthesia Assessment ---
Date of Service May 12, 2024 Pre Sedation Assessment Vital Signs Temp Pulse Pulse Resp BP Pulse Ox O2 Del Method 05/12/24 11:31 36.7 C 117 H 18 105/82 95 Room Air 05/12/24 07:41 36.7 C 94 H 18 111/84 95 Room Air 05/12/24 07:27 90 05/12/24 03:46 36.6 C 90 18 110/79 94 Room Air 05/11/24 23:00 90 05/11/24 22:42 36.5 C 95 H 18 121/81 93 Room Air 05/11/24 20:00 Room Air 05/11/24 19:28 36.5 C 104 H 18 109/79 95 Room Air 05/11/24 15:15 36.4 C L 97 H 18 107/80 96 Room Air Cardiovascular + tachycardic and + irregularly irregular Respiratory + respiratory effort normal Pre-Sedation Airway Assessment Smoking Status: Never smoker Hx Sleep Apnea: No Hx Difficult Intubation: No Short, Thick Neck: No Thyromental Distance: > or= 3.5 Finger Breadths Oral Cavity: + WNL Mallampati Class: III ASA: ASA3 Procedure Planning Contraindications for Sedation: none Current Medications Reviewed: Yes Notes The planned sedation has been discussed with the patient. Informed Consent was obtained. I have identified the patient, determined the appropriateness of sedation and have assessed the patient immediately prior to the procedure. All medicine(s) and interventions are by my order.
[2024-05-12] MEDS: LIDOCAINE 1% LOCAL 20 ML VIAL ONE (16:18)
[2024-05-12] MEDS: BUPIVACAINE 0.25% PF 30 ML VIAL ONE (16:18)
[2024-05-12] MEDS: VANCOMYCIN HCL 1000MG/20ML VIAL ONE (16:19)
[2024-05-12] MEDS: ceFAZolin 330 MG/ML 1 GM VIAL ONE (16:19)
[2024-05-12] MEDS: CLINDAMYCIN 900 MG/D5W 50 ML BAG IV ONE (16:19)
[2024-05-12] MEDS: WATER, STERILE FOR INJ 10 ML VIAL ONE (16:19)
[2024-05-12] MEDS ORDERED: oxyCODONE HCL IR 5 MG TAB (IMMEDIATE RELEASE) PO PRN (16:42)
--- NOTE | 2024-05-12 16:42 | Post Anesthesia Assessment ---
Date of Service May 12, 2024 Post Sedation Assessment Vital Signs Temp Pulse Pulse Resp BP BP Pulse Ox 05/12/24 15:15 96 H 05/12/24 15:12 110 H 17 117/81 96 05/12/24 11:31 36.7 C 117 H 18 105/82 95 05/12/24 07:41 36.7 C 94 H 18 111/84 95 05/12/24 07:27 90 05/12/24 03:46 36.6 C 90 18 110/79 94 05/11/24 23:00 90 05/11/24 22:42 36.5 C 95 H 18 121/81 93 05/11/24 20:00 05/11/24 19:28 36.5 C 104 H 18 109/79 95 O2 Del Method 05/12/24 15:15 05/12/24 15:12 Room Air 05/12/24 11:31 Room Air 05/12/24 07:41 Room Air 05/12/24 07:27 05/12/24 03:46 Room Air 05/11/24 23:00 05/11/24 22:42 Room Air 05/11/24 20:00 Room Air 05/11/24 19:28 Room Air Recovery Score Activity: Moves 4 extremities Respiration: Deep Breath/Cough Circulation: +/-20% PreAnes Value Consciousness: Arouseable (by name) Oxygen Saturation: > 92% On Room Air Discharge Sedation Level of Care: Fast Track Phase II Post Sedation Plan On clinical assessment, the patient appears to have tolerated the sedation without complications. Patient is recovering as anticipated. Patient will continue to be monitored by nursing and may be discharged when sedation discharge criteria are met per below protocol. Upon Completions of procedure up to 15 minutes continue every 5 minute vital signs and the P.A.R. score; then discharge to a Phase I or Fast Track to Phase II per the following guidelines: * Discharge Patient to appropriate Phase II area if PAR is 8 or greater or return to pre- procedure baseline. The post - procedure orders will be as directed. * If PAR score is less than 8 or not return to pre-procedure baseline then patient will follow Phase I monitoring till PAR is reached for Phase II. The Phase I may be done in procedure room or may call to secure a Phase I area. * If naloxone or flumazenil are used for reversal, hold in Phase I for continued monitoring from when last reversal dose was given for a minimum of 60 minutes or longer pending the nurse and/or physician discretion of patient condition before discharge to Phase II. Please call the Sedation Physician to re-evaluate and complete post-note for discharge to Phase II area. Do NOT discharge from procedure sedation or Phase 1 until post- sedation evaluation note is complete by procedure /sedation MD Sedation Discharge Instructions to be given to the patient at discharge to home.
--- NOTE | 2024-05-12 16:44 | Electrophysiology Report ---
Date of Service May 12, 2024 Electrophysiology Procedure Electrophysiology Procedure Report Procedure performed: Implantation of dual-chamber ICD Staff bean roaster: Edgardo Sanders MD Indication: The patient is an 78-year-old woman with a history of an ischemic cardiomyopathy and ejection fraction less than 30%. She is known to have significant coronary disease which is not amenable to further revascularization. She has not had revascularization in the past 90 days nor suffered a myocardial infarction in the past 40 days. She is on guideline directed medical therapy which is not optimal based on several patient factors including renal dysfunction. [place] Heart Association class II-III symptoms. Estimated longevity greater than 1 year. This puts her in a category of patients who would likely benefit from an ICD as primary prevention against sudden cardiac . Procedure in detail: The patient was informed of the risks benefits and alternatives to the intended procedure and she wished to proceed. She was taken to the electrophysiology suite in a fasting state. A preoperative antibiotic had been administered. The patient was monitored electrocardiographically throughout today's procedure and conscious sedation was administered per protocol. The left upper pectoral area is prepped and draped in usual sterile fashion. This area was anesthetized using subcutaneous administration of a xylocaine solution. An incision was made at this site and carried down to the prepectoralis fascia using sharp dissection. Electrocautery was also employed for dissection as well as for hemostasis. A device pocket was fashioned tissues above the pectoralis muscle. Subsequent to this maneuver the left axillary vein was accessed using modified Seldinger technique. Sheaths were placed over guidewires at this site and used to facilitate passage of the pacing leads to the respective chambers under fluoroscopic guidance. This included right atrial and right ventricular leads. Adequate sensing and threshold parameters were obtained prior to Active fixation of the leads to the endocardial surface. The proximal portion leads were then sutured the prepectoral fascia using nonabsorbable suture. The device pocket was irrigated with antibiotic solution. The leads were then attached to the device. The device and leads were then placed in the pocket and pocket was closed in 3 layers of absorbable suture. Steri-Strips and sterile dressing were applied. The device was tested noninvasively prior to conclusion the procedure. The patient tolerated procedure well there no immediate complications. Equipment used: New pulse generator: Arc Cutter Plasma Arc [employer]. Model number: [id number] serial number [id number] Right atrial lead: Arc Cutter Plasma Arc Medtronic. Model number: [id number] serial [id number] Right ventricular lead: Arc Cutter Plasma Arc [employer]tronic. Model number: 6935M serial number [id number] Measured data: Right atrial lead: Patient was in atrial fibrillation at time of implant. Sensing was 1.1 mV. Pacing impedance was 682 ohms Right ventricular lead: R waves measured greater than 20 mV. Pacing threshold was 0.75 V at 0.4 ms with a pacing impedance of 551 ohms Impression: Successful implantation of dual-chamber ICD MNPG Electrophysiology codes ICD Procedure 1: ICD: 85998 Insert single or dual ICD system PG Moderate Sedation Codes Moderate Sedation Codes Procedure 1: Sedation/Anesthesia: 73677 Mod Sedation by the same physician;Init15 Min Child Age 5 & Up Procedure 2: Sedation/Anesthesia: 96396 Mod Sedation by the same physician; Ea [id number] Minutes
[2024-05-12] MEDS: fentaNYL citrate PF 100 MCG/2 ML VIAL ONE (17:43)
[2024-05-12] MEDS: MIDAZOLAM HCL 5 MG/ML 1 ML VIAL ONE (17:43)
--- NOTE | 2024-05-12 19:50 | Hospitalist Progress Note ---
Date of Service May 12, 2024 Assessment & Plan (1) HFrEF (heart failure with reduced ejection fraction): Plan: Presented with acute on chronic HFrEF and a gradual decline with progressing weakness. Chest x-ray on admission with patchy right basilar densities favoring subsegmental atelectasis. Subsequent chest x-ray with small bilateral pleural effusions and pulmonary edema with cardiomegaly. Was diuresed aggressively initially with higher doses of Lasix and 1 dose of metolazone, with rising creatinine/ALLAN up to 2.9 Lasix now decreased back to 20 mg p.o. daily per nephrology/Cardio recommendations and creatinine improved down to 2.3 Echocardiogram now with severe aortic stenosis, moderate to severe MR, EF 30- 35%, positive wall motion abnormalities. Has a known history of CAD and was not a candidate for CABG when evaluated several years ago Now with V. tach/torsades on amiodarone drip Cardiology consulted:Recommendations appreciated Monitor daily weights-weight down 5 kg since admission Monitor strict I's and O's-net -6.9 L Can discontinue Jeong in the morning Continue rate control of A-fib-was given 1 dose of IV digoxin, continues on carvedilol. Entresto has been held for poor renal function and continues on spironolactone. Not a candidate for SGLT2 due to renal function HR control with plans to reevaluate EF once tachycardia improves Now s/p ICD placement on 05/12-check chest x-ray in the morning (2) Paroxysmal ventricular tachycardia: Plan: With an episode of 78 beats of V. tach/torsades on 05/10, now on amiodarone drip and s/p ICD on 05/12 Appreciate cardiology consultation Keep electrolytes replete-follow BMP, magnesium in the morning Check chest x-ray in the morning (3) Aortic stenosis: Plan: Moderate to severe but more severe likely due to low flow from poor EF as per cardiology Needs outpatient evaluation for TAVR which will be arranged by her primary orthotist/prosthetist Avoid overdiuresis (4) Chronic kidney disease, stage IV (severe): Plan: -Creatinine baseline over the last year has been 1.4-2.0, with acute kidney i njury here now improving with creatinine back to 2.3 -Nephro consulted: recommendations appreciated -Continue to hold Entresto but remains on low-dose Lasix and spironolactone -Monitor renal function closely (5) PAF (paroxysmal atrial fibrillation): Plan: Was in sinus rhythm on admission but converted to rapid atrial fibrillation on 05/05 Cardiology consulted: Cardiology increased amiodarone to BID dosing with hopes of converting to sinus and now on amiodarone drip due to torsades Received 1 dose of IV digoxin on 05/10 Rates are now better controlled the 80s to 90s Continue Carvedilol- dose limited by BP and weakness outpatient with higher doses -AC: Continue Eliquis but placed on hold for ICD placement-resume when okay with cardiology Likely convert back to p.o. amiodarone tomorrow (6) Demand ischemia: Plan: Troponin mildly elevated on admission without chest pain or acute EKG changes. Has a known history of CAD with stents and was referred for CABG eval but deemed not a candidate several years ago at [facility] Cardiology consulted Continue Plavix, Eliquis, carvedilol (7) Weakness: Plan: -OT and PT while hospitalized. Rehab recommended upon DC (8) CAD (coronary artery disease): Plan: As noted above (9) CLL (chronic lymphocytic leukemia): Plan: Outpatient oncology follow-up as scheduled. WBC count 10 She received parenteral iron replacement while hospitalized. For anemia, checked B12, folate, iron studies all of which are fairly normal except for mildly low transferrin saturation of 13% (10) Diabetes mellitus, type 2: Plan: -Pre-dm- patient and family declined insulin -Educated on diet and lifestyle modifications (11) Stroke: Plan: With a history of such Continue Plavix, Eliquis Plan Anemia-stable at 9-10, received IV iron, workup as above with normal B12, folate, mildly low iron levels Allergies-continue Sho GERD-continue PPI Anxiety/depression-continue on lorazepam as needed for anxiety, continue sertraline Meningioma-noted on brain MRI-chronic and follow as an outpatient Abnormal TSH-TSH recently elevated at 5, is on amiodarone-follow as an outpatient DVT prophylaxis-Eliquis Disposition-continued stay in PCU, with eventual discharge to [facility] on Wednesday next week Admission and Anticipated Discharge Date Admission Date: May 02, 2024 Subjective Patient seen after return from ICD placement. She has some mild aching pain at the site of the ICD but otherwise feeling well. Denies shortness of breath. Telemetry with atrial fibrillation with rates in the 80s to 90s Physical Exam Constitutional: WD/WN, vitals as above Respiratory: normal respiratory effort, lungs clear to auscultation Cardiovascular: Rate/Rhythm: regular rate and + irregularly irregular Heart Sounds: + murmur (3/6 DEBRA at the RUSB) Extremities: no edema Chest (Breasts): Chest: + abnormal inspection of chest (Dressing over ICD in place left anterior chest wall) Gastrointestinal (Abdomen): normal bowel sounds, soft, nontender, no hepatosplenomegaly Psychiatric: A+Ox3, euthymic affect Genitourinary: Jeong catheter in place draining clear yellow urine Results & Data Results & Data Vital Signs (Past 12 Hours) Vital Signs Temp Pulse Pulse Resp BP BP BP 05/12/24 19:01 36.4 C L 79 16 90/54 L 05/12/24 17:52 84 18 98/62 L 05/12/24 17:22 95 H 18 109/82 05/12/24 17:12 36.4 C L 96 H 18 99/73 L 05/12/24 15:15 96 H 05/12/24 15:12 110 H 17 117/81 05/12/24 11:31 36.7 C 117 H 18 105/82 Pulse Ox O2 Del Method 05/12/24 19:01 94 Room Air 05/12/24 17:52 05/12/24 17:22 Room Air 05/12/24 17:12 96 Room Air 05/12/24 15:15 05/12/24 15:12 96 Room Air 05/12/24 11:31 95 Room Air Laboratory Results CBC, BMP, magnesium, iron studies, B12, folate reviewed PG Care Time/CCT Total # of Minutes Spent Total Time Spent with Patient: Total time spent is greater than 50% in coordination of care (as documented) at patient's floor/unit and/or counseling patient: Coding Level of Care Code 36445 SUB INP/OBS CARE 2/35MIN Diagnoses HFrEF (heart failure with reduced ejection fraction) I50.20 Paroxysmal ventricular tachycardia I47.29 Aortic stenosis I35.0 Chronic kidney disease, stage IV (severe) N18.4 PAF (paroxysmal atrial fibrillation) I48.0 Demand ischemia I24.89 Weakness R53.1 CAD (coronary artery disease) I25.10 CLL (chronic lymphocytic leukemia) C91.90 Diabetes mellitus, type 2 E11.9 Stroke I63.9
--- NOTE | 2024-05-12 23:53 | Electrocardiogram Report ---
Test Reason : Blood Pressure : */* mmHG Vent. Rate : 95 BPM Atrial Rate : 267 BPM P-R Int : * ms QRS Dur : 126 ms QT Int : 406 ms P-R-T Axes : * 55 176 degrees QTcB Int : 510 ms Atrial fibrillation with premature ventricular or aberrantly conducted complexes Non-specific intra-ventricular conduction block Possible Anterior infarct (cited on or before 13-May-2019) ST elevation, consider anterior injury pattern Possible Inferior infarct Abnormal ECG When compared with ECG of 07-May-2024 10:34, Questionable change in initial forces of Septal leads Confirmed by Zack Roach ([id number]) on 05/12/2024 11:53:28 PM Referred By: REFERRED SELF Confirmed By: Zack Roach
[2024-05-13] MEDS: CLINDAMYCIN/D5W 600 MG/50 ML BAG IV ONE (00:26)
[2024-05-13 06:57] LABS: Basophils # (auto) 0.06 K/uL (0.00-0.20); Basophils % (auto) 0.5 %; Eosinophils # (auto) 0.42 K/uL (0.00-0.50); Eosinophils % (auto) 3.8 %; Hematocrit (blood only) 29.9 % (37.0-47.0); Hemoglobin 9.4 g/dl (12.0-16.0); Immature Granulocytes # (auto) 0.06 K/uL (0.01-0.20); Immature Granulocytes % (auto) 0.5 %; Lymphocytes # (auto) 3.05 K/uL (1.20-3.40); Lymphocytes % (auto) 27.9 %; Mean Corpuscular Hemoglobin 30.4 pg (25.0-34.0); Mean Corpuscular Hgb Conc 31.4 g/dL (32.0-36.0); Mean Corpuscular Volume 96.8 fL (80.0-100.0); Mean Platelet Volume 10.2 fL (9.4-12.4); Monocytes # (auto) 0.68 K/uL (0.11-0.59); Monocytes % (auto) 6.2 %; Neutrophils # (auto) 6.66 K/uL (1.40-6.50); Neutrophils % (auto) 61.1 %; Platelet Count 248 K/uL (130-400); RDW Coefficient of Variation 15.2 % (11.5-14.5); RDW Standard Deviation 52.8 fL (36.4-46.3); Red Blood Count 3.09 M/uL (4.20-5.40); White Blood Count 10.93 K/ul (4.8-10.8)
[2024-05-13 07:13] LABS: BUN Creatinine Ratio 38.9 (10-20); Calcium 8.9 mg/dl (8.6-10.3); Creatinine Clr Calc Pharmacy 20.3 ml/min; Est GFR (African American) 20.7 ml/min; Est GFR (Non-African American) 17.8 ml/min; Magnesium 2.1 mg/dl (1.7-2.4); Potassium 3.9 mmol/L (3.5-5.1)
--- NOTE | 2024-05-13 07:19 | XRay Report ---
XR chest 2V PA/lateral CLINICAL HISTORY: Pacemaker insertion. COMPARISON STUDY: Chest CT February 12, 2024. Chest radiograph May 08, 2024. FINDINGS: There is no pneumothorax following placement of a dual-lead left subclavian pacer/AICD. Car diomegaly is unchanged. There are small bilateral pleural effusions with bibasilar opacities. Interst itial thickening persists. Severe osteoarthritis of the left glenohumeral joint is incidentally noted . IMPRESSION: 1. No pneumothorax status post placement of a dual-lead left subclavian pacer/AICD. 2. Cardiomegaly. Mild increase in pulmonary edema. Small bilateral pleural effusions. ACT 112: Negative or not required by law. Electronically signed by: Giovanni Dixon M.D. 05/13/2024 7:18 AM
[2024-05-13] MEDS: METOPROLOL TARTRATE 25 MG TAB PO SCH (08:51)
[2024-05-13] MEDS: ACETAMINOPHEN 325 MG TAB PO PRN (08:54)
--- NOTE | 2024-05-13 09:46 | Cardiology Progress Note ---
Date of Service May 13, 2024 Assessment & Plan (1) HFrEF (heart failure with reduced ejection fraction): Plan: Her chest x-ray would suggest an element of pulmonary vascular congestion. I think she obtained her dose of diuretic today. I think tomorrow perhaps an intravenous dose may be more effective in clearing some congestion prior to discharge. Will switch her carvedilol to metoprolol tartrate temporarily in order to achieve better rate control. At some point we could convert this back to metoprolol succinate. She is continuing spironolactone. Entresto discontinued due to renal dysfunction. Also mildly hypotensive. (2) Aortic stenosis: Plan: -Likely severe. -Will consider TAVR as an outpatient. Being cautious with aggressive diuresis and addition of antihypertensives. (3) PAF (paroxysmal atrial fibrillation): Plan: Overall rate control appears somewhat improved. Amiodarone infusion discontinued and we will continue the oral formulation. Will discontinue carvedilol in order to try metoprolol for better rate control. This will have less antihypertensive effect and we may be able to achieve higher doses. No concerns about bradycardia now with her device. Will hold apixaban for 1 more day and restart tomorrow. (4) CAD (coronary artery disease): Plan: -Quiescent on medical management. -Deemed inoperable when [facility], June 2019. (5) Ischemic cardiomyopathy: Plan: -LVEF currently 30 to 35%. (6) Paroxysmal ventricular tachycardia: Plan: She had an episode of polymorphic ventricular tachycardia. Etiology unclear. Possibly ischemic given her known coronary disease. ICD now in place. Will continue amiodarone, beta-blockade and consider an ischemic evaluation at some point especially in light of her severe aortic stenosis and possible referral for TAVR. (7) ICD (implantable cardioverter-defibrillator) in place: Plan: Normal function on interrogation today. No evident complication. Plan Extensive discussion with patient, family and care team regarding the best and most immediate approach for this patient and her severe cardiac disease. Decision made to proceed with ICD tomorrow. Admission and Anticipated Discharge Date Admission Date: May 02, 2024 Subjective This morning the patient claims a feeling well. She reported not sleeping well over the course of the evening. She had some discomfort at the implant site which is now improved. No breathing difficulty. Some difficulty ambulating still. Review of Systems Review of Systems: Per HPI Physical Exam Physical Exam: Gen.: No acute distress. Alert. HEENT: Anicteric sclera. Cardiac: Irregularly irregular. Normal S1-S2. 2/6 mid-to-late peaking systolic ejection murmur. Pulmonary: Reduced breath sounds at the bases bilaterally. Occasional crackle. No expiratory wheezing. Normal respiratory effort. Chest: Device implant site with only mild ecchymosis. No hematoma. No erythema. No drainage. Abdomen: Soft, nontender, nondistended, with normoactive bowel sounds. No bruits noted. Extremities: 2+ radial pulses bilaterally. 1+ posterior tibialis pulses bilaterally. No edema or cyanosis. Results & Data Vital Signs (Past 12 Hours) Vital Signs Temp Pulse Pulse Resp BP Pulse Ox O2 Del Method 05/13/24 07:22 36.8 C 92 H 18 100/72 94 Room Air 05/13/24 07:15 83 05/13/24 01:49 36.5 C 95 H 18 105/74 96 Room Air 05/12/24 23:31 84 05/12/24 22:40 36.5 C 88 18 100/66 95 Room Air Laboratory Results Abnormal Lab Results 05/12/24 05/13/24 05/13/24 11:52 05:41 07:20 WBC 10.93 H RBC 3.09 L Hgb 9.4 L Hct 29.9 L MCV 96.8 MCH 30.4 MCHC 31.4 L RDW Std Deviation 52.8 H RDW Coeff of Nino 15.2 H Plt Count 248 MPV 10.2 Immature Gran % (Auto) 0.5 Neut % (Auto) 61.1 Lymph % (Auto) 27.9 [place] % (Auto) 6.2 Eos % (Auto) 3.8 Baso % (Auto) 0.5 Neut # (Auto) 6.66 H Lymph # (Auto) 3.05 [place] # (Auto) 0.68 H Eos # (Auto) 0.42 Baso # (Auto) 0.06 Immature Gran # (Auto) 0.06 Sodium 136 Potassium 3.9 Chloride 101 Carbon Dioxide 22 Anion Gap 13 H BUN 96 H Creatinine 2.47 H Est Cr Clr Drug Dosing 20.3 Est GFR ( Amer) 20.7 Est GFR (Non-Af Amer) 17.8 BUN/Creatinine Ratio 38.9 H Glucose 162 H POC Glucose 135 H 172 H Calcium 8.9 Magnesium 2.1 Diagnostic Findings Chest x-ray performed this morning revealed some evidence of pulmonary vascular congestion. Stable lead position without pneumothorax. Device interrogation revealed normal function both atrial and ventricular leads. PG Care Time/CCT Total # of Minutes Spent Total Time Spent with Patient: Total time spent is greater than 50% in coordination of care (as documented) at patient's floor/unit and/or counseling patient: Coding Level of Care Code 72693 SUB INP/OBS CARE 2/35MIN Diagnoses HFrEF (heart failure with reduced ejection fraction) I50.20 Aortic stenosis I35.0 PAF (paroxysmal atrial fibrillation) I48.0 CAD (coronary artery disease) I25.10 Ischemic cardiomyopathy I25.5 Paroxysmal ventricular tachycardia I47.29 ICD (implantable cardioverter-defibrillator) in place Z95.810
--- NOTE | 2024-05-13 12:02 | Hospitalist Progress Note ---
Date of Service May 13, 2024 Assessment & Plan (1) HFrEF (heart failure with reduced ejection fraction): Plan: Presented with acute on chronic HFrEF and a gradual decline with progressing weakness. Chest x-ray on admission with patchy right basilar densities favoring subsegmental atelectasis. Subsequent chest x-ray with small bilateral pleural effusions and pulmonary edema with cardiomegaly. Was diuresed aggressively initially with higher doses of Lasix and 1 dose of metolazone, with rising creatinine/ALLAN up to 2.9 Lasix then decreased back to 20 mg p.o. daily per nephrology/Cardio recommendations and creatinine improved down to 2.3 Echocardiogram now with progression to severe aortic stenosis, moderate to severe MR, EF 30-35%, positive wall motion abnormalities. Has a known history of CAD and was not a candidate for CABG when evaluated several years ago Had an episode of V. tach/torsades-placed on amiodarone drip and now s/p ICD placement on 05/12 Cardiology consulted:Recommendations appreciated Monitor daily weights-weight down 5 kg since admission Monitor strict I's and O's-net -6.4 L CXR on 05/13 with worsening pulmonary edema although not clinically symptomatic Give Lasix 20 Mg IV x 1 today, hold p.o. Lasix and spironolactone with slightly rising creatinine Adenike discontinued Continue rate control of A-fib- cardiology switched cart cardiology switched to metoprolol to tartrate on 05/13-convert to Toprol-XL prior to discharge Entresto has been held for poor renal function and will now hold spironolactone due to rising creatinine. Not a candidate for SGLT2 due to renal function HR control with plans to reevaluate EF once tachycardia improves (2) Paroxysmal ventricular tachycardia: Plan: With an episode of 78 beats of V. tach/torsades on 05/10, placed on amiodarone drip and s/p ICD on 05/12 Appreciate cardiology consultation Keep electrolytes replete-follow BMP, magnesium in the morning DC IV amiodarone and convert to amiodarone 200 mg p.o. once daily-Home dose (3) Aortic stenosis: Plan: Moderate to severe but more severe likely due to low flow from poor EF as per cardiology Needs outpatient evaluation for TAVR which will be arranged by her primary packaging specialist Avoid overdiuresis and low blood pressure (4) Chronic kidney disease, stage IV (severe): Plan: -Creatinine baseline over the last year has been 1.4-2.0, with acute kidney injury here now improving but slightly worse from previous now back up to 2.47 -Nephro consulted: recommendations appreciated-signed off-recommends frequent monitoring of BMP -Continue to hold Entresto but remains on low-dose Lasix and spironolactone- placing p.o. Lasix and spironolactone on hold on 05/13, give IV Lasix 20 Mg x 1 -Monitor renal function closely, watch urine output (5) PAF (paroxysmal atrial fibrillation): Plan: Was in sinus rhythm on admission but converted to rapid atrial fibrillation on 05/05 Cardiology consulted: Cardiology increased amiodarone to BID dosing with hopes of converting to sinus and then on amiodarone drip due to torsades Received 1 dose of IV digoxin on 05/10 Rates are now better controlled the 80s to 90s Switched carvedilol to metoprolol on 05/13-titrate up as able to and then convert to Toprol-XL on discharge Eliquis on hold for ICD placement-can resume on 05/14 Convert back to p.o. amiodarone (6) Demand ischemia: Plan: Troponin mildly elevated on admission without chest pain or acute EKG changes. Has a known history of CAD with stents and was referred for CABG eval but deemed not a candidate several years ago at [facility] Cardiology consulted Continue Plavix, Eliquis, carvedilol (7) Weakness: Plan: -OT and PT while hospitalized. Rehab recommended upon DC (8) CAD (coronary artery disease): Plan: As noted above (9) CLL (chronic lymphocytic leukemia): Plan: WBC count 10 She received parenteral iron replacement while hospitalized. For anemia, checked B12, folate, iron studies all of which are fairly normal except for mildly low transferrin saturation of 13% She did receive 2 doses of IV Venofer this admission-will give a third dose of Venofer 200 mg on 05/13 Follow-up with hematology as an outpatient (10) Diabetes mellitus, type 2: Plan: -Pre-dm- patient and family declined insulin -Educated on diet and lifestyle modifications (11) Stroke: Plan: With a history of such Continue Plavix, Eliquis Plan Anemia-stable at 9-10, giving IV iron, workup as above with normal B12, folate, mildly low iron levels Allergies-continue Sho GERD-continue PPI Anxiety/depression-continue on lorazepam as needed for anxiety, continue sertraline. She does feel this hospitalization has worsened her depression- monitor for further worsening Meningioma-noted on brain MRI-chronic and follow as an outpatient Abnormal TSH-TSH recently elevated at 5, is on amiodarone-follow as an outpatient DVT prophylaxis-Eliquis Disposition-continued stay in PCU, with eventual discharge to [facility] on Wednesday next week Admission and Anticipated Discharge Date Admission Date: May 02, 2024 Subjective Patient reports ongoing pain at the site of her ICD. Denies shortness of breath. No chest pains. Is feeling depressed and is tearful, misses her cats. Telemetry with atrial fibrillation and PVCs, occasional pacer spikes, rates in the 80s to 90s Physical Exam Constitutional: WD/WN, vitals as above Respiratory: normal respiratory effort; no cough Auscultation: + crackles (Bibasilar); no rhonchi and no wheezes Cardiovascular: Rate/Rhythm: regular rate and + irregularly irregular Heart Sounds: + murmur (3/6 DEBRA at the RUSB) Extremities: no edema Chest (Breasts): Chest: + abnormal inspection of chest (Steri-Strips over ICD in place left anterior chest wall,surrounding bruise) Gastrointestinal (Abdomen): normal bowel sounds, soft, nontender, no hepatosplenomegaly Psychiatric: A+Ox3, euthymic affect Results & Data Results & Data Vital Signs (Past 12 Hours) Vital Signs Temp Pulse Pulse Resp BP Pulse Ox O2 Del Method 05/13/24 11:13 36.7 C 89 18 123/64 93 Room Air 05/13/24 07:22 36.8 C 92 H 18 100/72 94 Room Air 05/13/24 07:15 83 05/13/24 01:49 36.5 C 95 H 18 105/74 96 Room Air Laboratory Results CBC, BMP, magnesium reviewed Diagnostic Findings Chest x-ray image personally reviewed by me-shows increasing pulmonary edema PG Care Time/CCT Total # of Minutes Spent Total Time Spent with Patient: Total time spent is greater than 50% in coordination of care (as documented) at patient's floor/unit and/or counseling patient: Coding Level of Care Code 55244 SUB INP/OBS CARE 3/50MIN Diagnoses HFrEF (heart failure with reduced ejection fraction) I50.20 Paroxysmal ventricular tachycardia I47.29 Aortic stenosis I35.0 Chronic kidney disease, stage IV (severe) N18.4 PAF (paroxysmal atrial fibrillation) I48.0 Demand ischemia I24.89 Weakness R53.1 CAD (coronary artery disease) I25.10 CLL (chronic lymphocytic leukemia) C91.90 Diabetes mellitus, type 2 E11.9 Stroke I63.9
[2024-05-13] MEDS: FUROSEMIDE INJ 20 MG/2 ML VIAL IV ONE (12:12)
[2024-05-13] MEDS: oxyCODONE HCL IR 5 MG TAB (IMMEDIATE RELEASE) PO PRN (12:31)
[2024-05-13] MEDS: AMIODARONE 200 MG TAB PO SCH (12:31)
[2024-05-13] MEDS: POTASSIUM CHLORIDE 10 MEQ TABCR PO STA (12:31)
[2024-05-13] MEDS: DOCUSATE SODIUM/SENNA 50/8.6MG TAB PO SCH (13:24)
[2024-05-13] MEDS: IRON SUCROSE 200 MG in 0.9 % SODIUM CHLORIDE 100 ML IV ONE (13:25)
[2024-05-13] MEDS: FUROSEMIDE 40 MG/4 ML VIAL IV ONE (18:45)
[2024-05-13 19:14] LABS: BUN Creatinine Ratio 36.8 (10-20); Calcium 9.1 mg/dl (8.6-10.3); Creatinine Clr Calc Pharmacy 16.9 ml/min; Est GFR (African American) 16.6 ml/min; Est GFR (Non-African American) 14.3 ml/min; Potassium 3.9 mmol/L (3.5-5.1)
[2024-05-14 06:54] LABS: Basophils # (auto) 0.06 K/uL (0.00-0.20); Basophils % (auto) 0.5 %; Eosinophils % (auto) 2.7 %; Hematocrit (blood only) 31.5 % (37.0-47.0); Hemoglobin 9.9 g/dl (12.0-16.0); Immature Granulocytes # (auto) 0.07 K/uL (0.01-0.20); Immature Granulocytes % (auto) 0.6 %; Lymphocytes # (auto) 3.56 K/uL (1.20-3.40); Lymphocytes % (auto) 31.8 %; Mean Corpuscular Hemoglobin 30.5 pg (25.0-34.0); Mean Corpuscular Hgb Conc 31.4 g/dL (32.0-36.0); Mean Corpuscular Volume 96.9 fL (80.0-100.0); Mean Platelet Volume 10.1 fL (9.4-12.4); Monocytes # (auto) 0.76 K/uL (0.11-0.59); Monocytes % (auto) 6.8 %; Neutrophils # (auto) 6.45 K/uL (1.40-6.50); Neutrophils % (auto) 57.6 %; Platelet Count 259 K/uL (130-400); RDW Coefficient of Variation 15.2 % (11.5-14.5); RDW Standard Deviation 54.1 fL (36.4-46.3); Red Blood Count 3.25 M/uL (4.20-5.40)
[2024-05-14 07:15] LABS: BUN Creatinine Ratio 32.8 (10-20); Calcium 8.8 mg/dl (8.6-10.3); Creatinine Clr Calc Pharmacy 15.7 ml/min; Est GFR (African American) 15.1 ml/min; Magnesium 2.1 mg/dl (1.7-2.4); Potassium 4.2 mmol/L (3.5-5.1)
--- NOTE | 2024-05-14 10:49 | Cardiology Progress Note ---
Date of Service May 14, 2024 Assessment & Plan (1) HFrEF (heart failure with reduced ejection fraction): Plan: Outpatient regimen included carvedilol, Entresto and spironolactone. Entresto currently being held due to renal dysfunction. (2) Aortic stenosis: Plan: This is newly discovered during this admission. Severity and question due to possible low output heart failure. This can be evaluated further in the outpatient setting (3) PAF (paroxysmal atrial fibrillation): Plan: Overall heart rates appear to be improving. Carvedilol switched to metoprolol yesterday to facilitate higher doses of beta-blockade with less antihypertensive effect. Blood pressures appear stable. Will continue her d aily dose of amiodarone, increase her metoprolol to tartrate as able and consider restarting her apixaban (although in the setting of her renal dysfunction this may be delayed.) (4) CAD (coronary artery disease): Plan: -Quiescent on medical management. -Deemed inoperable when [facility], June 2019. (5) Ischemic cardiomyopathy: Plan: Her medical therapy was de-escalated based on declining renal function. Currently only on carvedilol and spironolactone. Her degree of LV dysfunction puts her in a category of patients who would generally benefit from an ICD as primary prevention against sudden cardiac . She has several severe comorbidities however and longevity may be limited. However, given her episode of ventricular tachycardia and severely reduced LV systolic function ICD was placed 2 days ago. (6) Paroxysmal ventricular tachycardia: Plan: Nonsustained episodes. More significant episode recently which was polymorphic in nature. No recent symptoms. Plan Unfortunately, the patient appears to have developed some oliguric renal failure. Will await further evaluation from the nephrology service. An attempt was made to affect some diuresis yesterday based on what appeared to be an element of volume overload. However, she did not respond to 2 doses of diuretic. Admission and Anticipated Discharge Date Admission Date: May 02, 2024 Subjective This morning patient overall felt well. She was complaining of some pain in the left arm that she describes as "shooting". She feels this may be related to her left rotator cuff difficulties. Improving with Tylenol. No pain at the actual device implant site. No breathing difficulty at rest. She did report being up in chair somewhat yesterday. No sense of palpitation. Review of Systems Review of Systems: Per HPI Physical Exam Physical Exam: Gen.: No acute distress. Alert. HEENT: Anicteric sclera. Cardiac: Irregularly irregular. Normal S1-S2. 2/6 mid-to-late peaking systolic ejection murmur. Pulmonary: Reduced breath sounds at the bases bilaterally. Occasional crackle. No expiratory wheezing. Normal respiratory effort. Chest: Device implant site with only mild ecchymosis. No hematoma. No erythema. No drainage. Nontender to palpation. Extremities: 2+ radial pulses bilaterally. 1+ posterior tibialis pulses bilaterally. No edema or cyanosis. Results & Data Vital Signs (Past 12 Hours) Vital Signs Temp Pulse Pulse Resp BP BP Pulse Ox 05/14/24 07:28 93 H 05/14/24 07:21 36.4 C L 107 H 18 123/83 91 05/14/24 02:33 36.7 C 92 H 18 124/79 91 05/13/24 23:34 85 05/13/24 23:11 36.6 C 90 18 96/72 L 93 O2 Del Method 05/14/24 07:28 05/14/24 07:21 Room Air 05/14/24 02:33 Room Air 05/13/24 23:34 05/13/24 23:11 Room Air Laboratory Results Abnormal Lab Results 05/13/24 05/13/24 05/13/24 11:10 16:16 18:36 WBC RBC Hgb Hct MCV MCH MCHC RDW Std Deviation RDW Coeff of Nino Plt Count MPV Immature Gran % (Auto) Neut % (Auto) Lymph % (Auto) [place] % (Auto) Eos % (Auto) Baso % (Auto) Neut # (Auto) Lymph # (Auto) [place] # (Auto) Eos # (Auto) Baso # (Auto) Immature Gran # (Auto) Sodium 133 L Potassium 3.9 Chloride 99 Carbon Dioxide 22 Anion Gap 12 H BUN 109 H Creatinine 2.96 H D Est Cr Clr Drug Dosing 16.9 Est GFR ( Amer) 16.6 Est GFR (Non-Af Amer) 14.3 BUN/Creatinine Ratio 36.8 H Glucose 168 H POC Glucose 170 H 148 H Calcium 9.1 Magnesium 05/13/24 05/14/24 05/14/24 20:07 06:19 07:22 WBC 11.20 H RBC 3.25 L Hgb 9.9 L Hct 31.5 L MCV 96.9 MCH 30.5 MCHC 31.4 L RDW Std Deviation 54.1 H RDW Coeff of Nino 15.2 H Plt Count 259 MPV 10.1 Immature Gran % (Auto) 0.6 Neut % (Auto) 57.6 Lymph % (Auto) 31.8 [place] % (Auto) 6.8 Eos % (Auto) 2.7 Baso % (Auto) 0.5 Neut # (Auto) 6.45 Lymph # (Auto) 3.56 H [place] # (Auto) 0.76 H Eos # (Auto) 0.30 Baso # (Auto) 0.06 Immature Gran # (Auto) 0.07 Sodium 130 L Potassium 4.2 Chloride 97 L Carbon Dioxide 20 L Anion Gap 13 H BUN 105 H Creatinine 3.20 H Est Cr Clr Drug Dosing 15.7 Est GFR ( Amer) 15.1 Est GFR (Non-Af Amer) 13.0 BUN/Creatinine Ratio 32.8 H Glucose 150 H POC Glucose 144 H 157 H Calcium 8.8 Magnesium 2.1 PG Care Time/CCT Total # of Minutes Spent Total Time Spent with Patient: Total time spent is greater than 50% in coordination of care (as documented) at patient's floor/unit and/or counseling patient: Coding Level of Care Code 31494 SUB INP/OBS CARE 2/35MIN Diagnoses HFrEF (heart failure with reduced ejection fraction) I50.20 Aortic stenosis I35.0 PAF (paroxysmal atrial fibrillation) I48.0 CAD (coronary artery disease) I25.10 Ischemic cardiomyopathy I25.5 Paroxysmal ventricular tachycardia I47.29
--- NOTE | 2024-05-14 12:01 | Nephrology Progress Note ---
Date of Service May 14, 2024 Assessment & Plan (1) Acute kidney injury: Plan: * ALLAN/CKD. ALLAN due to CRS. +/- hemodynamically mediated ATN. * Entresto has been held. Spironolactone held. * 05/02/24 urinalysis was negative for blood or protein. Repeat requested. * Kidney function initially improved to creatinine 2.17 mg/dL on May 11 with diuresis. Creatinine is trending upward over the past few days in association with markedly decreased urine output. UOP did not respond to diuretics yesterday. * Straight cath/bladder scan with <10 ml. * Volume status acceptable. Electrolytes normal. There is no emergent indication for dialysis. * Medications are appropriate for kidney function. * Continue to document strict I/O's. Repeat metabolic profile tomorrow AM. (2) Chronic kidney disease, stage IV (severe): Plan: * CKD stage G4 (advanced impairment). Baseline Cr has been 1.8-2.0 w/ EGFR 26 cc/min. (3) CHF (congestive heart failure): Plan: * Cardiology following. * Ischemic cardiomyopathy with HFrEF. * Severe . * PAF/PVT - remains in rate controlled atrial fibrillation this morning. * s/p dual chamber ICD May 12. * Entresto being held due to relative hypotension. * Monitor daily weight and document strict I/O's. (4) Anemia: Plan: * Repeat H/H tomorrow AM. * Check iron profile with next blood work. Admission and Anticipated Discharge Date Admission Date: May 02, 2024 Subjective No acute events overnight. Jere reports some pain in the left arm/shoulder from ICD placement. She otherwise feels reasonably well. Appetite is fair. She is breathing comfortably. She endorses some weakness. No fevers or chills. No GI symptoms reported. Decreased UOP noted. Review of Systems Review of Systems: All systems reviewed & are unremarkable except as noted in HPI & below Physical Exam Constitutional: well developed; no acute distress Eyes: + anicteric sclerae ENMT: Mouth: no oral mucosal abnormality and oral mucous membranes not dry Neck: normal visual inspection and trachea midline Respiratory: normal respiratory effort Auscultation: lungs clear to auscultation bilaterally Cardiovascular: Rate/Rhythm: + irregularly irregular Heart Sounds: normal S1, normal S2 and + murmur Extremities: no edema Chest (Breasts): Chest: + pacemaker (ICD with incision CDI) Musculoskeletal: Extremities: no cyanosis and no clubbing Skin: no jaundice and no erythema Neurologic: Motor/Sensory: no tremor and no asterixis Psychiatric: Orientation: alert and oriented x 3 Genitourinary: no CVA tenderness Results & Data Vital Signs (Past 12 Hours) Vital Signs Temp Pulse Pulse Resp BP BP Pulse Ox 05/14/24 10:58 36.5 C 81 18 97/71 L 96 05/14/24 07:28 93 H 05/14/24 07:21 36.4 C L 107 H 18 123/83 91 05/14/24 02:33 36.7 C 92 H 18 124/79 91 O2 Del Method 05/14/24 10:58 Room Air 05/14/24 07:28 05/14/24 07:21 Room Air 05/14/24 02:33 Room Air Laboratory Results Laboratory Results - last 24 hr 05/13/24 05/13/24 05/13/24 16:16 18:36 20:07 WBC RBC Hgb Hct MCV MCH MCHC RDW Std Deviation RDW Coeff of Nino Plt Count MPV Immature Gran % (Auto) Neut % (Auto) Lymph % (Auto) [place] % (Auto) Eos % (Auto) Baso % (Auto) Neut # (Auto) Lymph # (Auto) [place] # (Auto) Eos # (Auto) Baso # (Auto) Immature Gran # (Auto) Sodium 133 L Potassium 3.9 Chloride 99 Carbon Dioxide 22 Anion Gap 12 H BUN 109 H Creatinine 2.96 H D Est Cr Clr Drug Dosing 16.9 Est GFR ( Amer) 16.6 Est GFR (Non-Af Amer) 14.3 BUN/Creatinine Ratio 36.8 H Glucose 168 H POC Glucose 148 H 144 H Calcium 9.1 Magnesium 05/14/24 05/14/24 05/14/24 06:19 07:22 11:32 WBC 11.20 H RBC 3.25 L Hgb 9.9 L Hct 31.5 L MCV 96.9 MCH 30.5 MCHC 31.4 L RDW Std Deviation 54.1 H RDW Coeff of Nino 15.2 H Plt Count 259 MPV 10.1 Immature Gran % (Auto) 0.6 Neut % (Auto) 57.6 Lymph % (Auto) 31.8 [place] % (Auto) 6.8 Eos % (Auto) 2.7 Baso % (Auto) 0.5 Neut # (Auto) 6.45 Lymph # (Auto) 3.56 H [place] # (Auto) 0.76 H Eos # (Auto) 0.30 Baso # (Auto) 0.06 Immature Gran # (Auto) 0.07 Sodium 130 L Potassium 4.2 Chloride 97 L Carbon Dioxide 20 L Anion Gap 13 H BUN 105 H Creatinine 3.20 H Est Cr Clr Drug Dosing 15.7 Est GFR ( Amer) 15.1 Est GFR (Non-Af Amer) 13.0 BUN/Creatinine Ratio 32.8 H Glucose 150 H POC Glucose 157 H 164 H Calcium 8.8 Magnesium 2.1 PG Care Time/CCT Total # of Minutes Spent Total Time Spent with Patient: Total time spent is greater than 50% in coordination of care (as documented) at patient's floor/unit and/or counseling patient: Coding Level of Care Code 31731 SUB INP/OBS CARE 3/50MIN Diagnoses Acute kidney injury N17.9 Chronic kidney disease, stage IV (severe) N18.4 CHF (congestive heart failure) I50.9 Heart failure chronicity: unspecified Heart failure type: unspecified Anemia D64.9 (3) CHF (congestive heart failure) Heart failure chronicity: unspecified Heart failure type: unspecified Qualified Code(s): I50.9 - Heart failure, unspecified
--- NOTE | 2024-05-14 17:22 | Hospitalist Progress Note ---
Date of Service May 14, 2024 Assessment & Plan (1) HFrEF (heart failure with reduced ejection fraction): Plan: Presented with acute on chronic HFrEF and a gradual decline with progressing weakness. Chest x-ray on admission with patchy right basilar densities favoring subsegmental atelectasis. Subsequent chest x-ray with small bilateral pleural effusions and pulmonary edema with cardiomegaly. Was diuresed aggressively initially with higher doses of Lasix and 1 dose of metolazone, with rising creatinine/ALLAN up to 2.9 Lasix then decreased back to 20 mg p.o. daily per nephrology/Cardio recommendations and creatinine improved down to 2.3 Echocardiogram now with progression to severe aortic stenosis, moderate to severe MR, EF 30-35%, positive wall motion abnormalities. Has a known history of CAD and was not a candidate for CABG when evaluated several years ago Had an episode of V. tach/torsades-placed on amiodarone drip and now s/p ICD placement on 05/12 Cardiology consulted:Recommendations appreciated Monitor daily weights-weight was down 5 kg since admission but now rising back up and urine output almost 0 Monitor strict I's and O's CXR on 05/13 with worsening pulmonary edema although not clinically symptomatic She was given 2 doses of IV Lasix on 05/13 without much urine output and now creatinine rising to 3.2 Continue to hold p.o. Lasix and spironolactone Jeong discontinued and straight cath as needed Continue rate control of A-fib- cardiology switched cart cardiology switched to metoprolol to tartrate on 05/13-convert to Toprol-XL prior to discharge Entresto has been held for poor renal function and holding spironolactone due to rising creatinine. Not a candidate for SGLT2 due to renal function HR control with plans to reevaluate EF once tachycardia improves Would give IV Lasix if develops respiratory distress-likely 80 mg IV (2) Chronic kidney disease, stage IV (severe): Plan: With acute kidney injury in the setting of CKD stage IV-Creatinine baseline over the last year has been 1.4-2.0, with ALLAN here that was improving, but now much worse and with oliguria Reconsulted nephrology today-recommends holding off on further Lasix unless develops evidence of worsening volume overload Continue to hold Entresto, Lasix and spironolactone Monitor renal function closely, watch urine output (3) Paroxysmal ventricular tachycardia: Plan: With an episode of 78 beats of V. tach/torsades on 05/10, placed on amiodarone drip and s/p ICD on 05/12 Appreciate cardiology consultation Keep electrolytes replete-follow BMP, magnesium in the morning Have since discontinued IV amiodarone and switched back to amiodarone 200 mg p.o. once daily-Home dose (4) Aortic stenosis: Plan: Moderate to severe but more severe likely due to low flow from poor EF as per cardiology Needs outpatient evaluation for TAVR which will be arranged by her primary panel builder Avoid overdiuresis and low blood pressure (5) PAF (paroxysmal atrial fibrillation): Plan: Was in sinus rhythm on admission but converted to rapid atrial fibrillation on 05/05 Cardiology consulted: Cardiology increased amiodarone to BID dosing with hopes of converting to sinus and then on amiodarone drip due to torsades Received 1 dose of IV digoxin on 05/10 Rates are now better controlled the 80s to 90s Switched carvedilol to metoprolol on 05/13-titrate up as able to and then convert to Toprol-XL on discharge Eliquis was on hold for ICD placement-can resume now Continue p.o. amiodarone (6) Demand ischemia: Plan: Troponin mildly elevated on admission without chest pain or acute EKG changes. Has a known history of CAD with stents and was referred for CABG eval but deemed not a candidate several years ago at [facility] Cardiology consulted Continue Plavix, Eliquis, carvedilol (7) Weakness: Plan: -OT and PT while hospitalized. Rehab recommended upon DC (8) CAD (coronary artery disease): Plan: As noted above (9) CLL (chronic lymphocytic leukemia): Plan: WBC count 10-11 She received parenteral iron replacement while hospitalized. For anemia, checked B12, folate, iron studies all of which are fairly normal except for mildly low transferrin saturation of 13% She did receive 3 doses of IV Venofer this admission Follow-up with hematology as an outpatient (10) Diabetes mellitus, type 2: Plan: -Pre-dm- patient and family declined insulin -Educated on diet and lifestyle modifications (11) Stroke: Plan: With a history of such Continue Plavix, Eliquis Plan Anemia-stable at 9-10, gave IV iron, workup as above with normal B12, folate, mildly low iron levels Allergies-continue Sho GERD-continue PPI, add IV pepcid x 1 dose today for reflux and nausea Anxiety/depression-continue on lorazepam as needed for anxiety, continue sertraline. She does feel this hospitalization has worsened her depression- monitor for further worsening Meningioma-noted on brain MRI-chronic and follow as an outpatient Abnormal TSH-TSH recently elevated at 5, is on amiodarone-follow as an outpatient DVT prophylaxis-Eliquis Disposition-continued stay in PCU, with eventual discharge to [facility] on Wednesday next week Discussed her care at length with her daughter on the phone on 05/14 Admission and Anticipated Discharge Date Admission Date: May 02, 2024 Subjective Patient only made 75 mL of urine overnight and no urine throughout the day today. She denies shortness of breath or chest pains. She is having some nausea today. She is trying to force herself to drink some fluids. She finally did move her bowels multiple times today after taking a lot of laxatives and straining. I did discuss her case with both cardiology and nephrology. I discussed her care with her daughter on the phone at length. Telemetry with atrial fibrillation with rates in the 80s to 100s Physical Exam Constitutional: WD/WN, vitals as above Respiratory: normal respiratory effort, lungs clear to auscultation no cough Cardiovascular: Rate/Rhythm: regular rate and + irregularly irregular Heart Sounds: + murmur (3/6 DEBRA at the RUSB) Extremities: no edema Chest (Breasts): Chest: + abnormal inspection of chest (Steri-Strips over ICD in place left anterior chest wall,surrounding bruise) Gastrointestinal (Abdomen): normal bowel sounds, soft, nontender, no hepatosplenomegaly Psychiatric: A+Ox3, euthymic affect Results & Data Results & Data Vital Signs (Past 12 Hours) Vital Signs Temp Pulse Pulse Resp BP Pulse Ox O2 Del Method 05/14/24 15:32 36.6 C 88 18 108/76 91 Room Air 05/14/24 15:24 82 05/14/24 10:58 36.5 C 81 18 97/71 L 96 Room Air 05/14/24 07:28 93 H 05/14/24 07:21 36.4 C L 107 H 18 123/83 91 Room Air Laboratory Results CBC, BMP, magnesium reviewed PG Care Time/CCT Total # of Minutes Spent Total Time Spent with Patient: Total time spent is greater than 50% in coordination of care (as documented) at patient's floor/unit and/or counseling patient: Coding Level of Care Code 81694 SUB INP/OBS CARE 3/50MIN Diagnoses HFrEF (heart failure with reduced ejection fraction) I50.20 Chronic kidney disease, stage IV (severe) N18.4 Paroxysmal ventricular tachycardia I47.29 Aortic stenosis I35.0 PAF (paroxysmal atrial fibrillation) I48.0 Demand ischemia I24.89 Weakness R53.1 CAD (coronary artery disease) I25.10 CLL (chronic lymphocytic leukemia) C91.90 Diabetes mellitus, type 2 E11.9 Stroke I63.9
[2024-05-14] MEDS: FAMOTIDINE 20MG IV PUSH 20 MG/5 ML SYR IV STA (19:18)
[2024-05-14] MEDS: APIXABAN 2.5 MG TAB PO SCH (20:09)
[2024-05-15 06:25] LABS: Appearance Urine Cloudy (Clear); Bacteria Urine Automated 4+ (None Seen); Bilirubin Urine Negative (Negative); Blood Urine Negative (Negative); Color Urine Dark Yellow; Epithelial Cell Urine Auto 0-2 /hpf (0-2); Glucose Urine UA Negative (Negative); Ketones Urine Trace (Negative); Leukocyte Esterase Urine 2+ (Negative); Nitrite Urine Negative (Negative); Protein Urine 1+ (Negative); Specific Gravity Urine 1.034 (1.000-1.030); Urobilinogen Urine Negative (Negative); WBC Urine Automated >50 /hpf (0-5)
[2024-05-15 06:43] LABS: Hemoglobin 9.7 g/dl (12.0-16.0); Mean Corpuscular Hemoglobin 30.5 pg (25.0-34.0); Mean Corpuscular Hgb Conc 32.3 g/dL (32.0-36.0); Mean Corpuscular Volume 94.3 fL (80.0-100.0); Mean Platelet Volume 10.2 fL (9.4-12.4); Nucleated RBC # (auto) 0.02 K/uL (0.00-0.12); Nucleated RBC % (auto) 0.1 %; Platelet Count 283 K/uL (130-400); RDW Coefficient of Variation 15.4 % (11.5-14.5); RDW Standard Deviation 52.8 fL (36.4-46.3); Red Blood Count 3.18 M/uL (4.20-5.40)
[2024-05-15 06:45] LABS: Albumin Level 3.6 gm/dl (3.4-5.0); BUN Creatinine Ratio 28.2 (10-20); Calcium 8.6 mg/dl (8.6-10.3); Creatinine Clr Calc Pharmacy 12.6 ml/min; Est GFR (African American) 11.5 ml/min; Est GFR (Non-African American) 9.9 ml/min; Phosphorus 6.2 mg/dl (2.5-4.9); Potassium 4.4 mmol/L (3.5-5.1)
[2024-05-15 07:07] LABS: Ferritin 471.4 ng/ml (8-388)
[2024-05-15] MEDS: CEFEPIME 2,000 MG in SYRINGE 0 ML IV ONE (08:28)
[2024-05-15] MEDS: IRON SUCROSE 200 MG in 0.9 % SODIUM CHLORIDE 100 ML IV SCH (10:28)
--- NOTE | 2024-05-15 11:56 | Hospitalist Progress Note ---
Date of Service May 15, 2024 Assessment & Plan (1) HFrEF (heart failure with reduced ejection fraction): Plan: Presented with acute on chronic HFrEF and a gradual decline with progressing weakness. CXR on admission with patchy right basilar densities favoring aceves bsegmental atelectasis. Subsequent chest x-ray with small bilateral pleural effusions and pulmonary edema with cardiomegaly. Was diuresed aggressively initially with higher doses of Lasix and 1 dose of metolazone, with rising creatinine/ALLAN up to 2.9 Lasix then decreased back to 20 mg p.o. daily per nephrology/Cardio recommendations and creatinine improved down to 2.3 Echocardiogram w/ progression to severe aortic stenosis, moderate to severe MR, EF 30-35%, positive wall motion abnormalities. Has a known history of CAD and was not a candidate for CABG when evaluated several years ago Had an episode of V. tach/torsades-placed on amiodarone drip and now s/p ICD placement on 05/12 Cardiology recommendations appreciated Monitor daily weights-weight was down 5 kg since admission but now rising back up and urine output quite low. Monitor strict I's and O's CXR on 05/13 with worsening pulmonary edema although not clinically symptomatic She was given 2 doses of IV Lasix on 05/13 without much urine output and now creatinine continues rising up to 4.02 Continue to hold p.o. Lasix and spironolactone Give 500 mL bolus of Plasma-Lyte as per nephrology on 05/15 to encourage urine output Continue rate control of A-fib- cardiology switched carvedilol to metoprolol tartrate on 05/13-convert to Toprol-XL prior to discharge Entresto has been held for poor renal function and hypotension; holding s pironolactone due to rising creatinine. Not a candidate for SGLT2 due to renal function HR control with plans to reevaluate EF once tachycardia improves Would give IV Lasix if develops respiratory distress-likely 80 mg IV (2) Chronic kidney disease, stage IV (severe): Plan: With ALLAN in the setting of CKD stage IV-Creatinine baseline over the last year has been 1.4-2.0, with ALLAN here that was improving, but now much worse and with oliguria Nephrology recommends holding off on further Lasix unless develops evidence of worsening volume overload Repeat UA on 05/14 shows evidence of UTI, 1+ protein, trace ketones, 3-5 hyaline casts-treat for UTI Nausea/vomiting may be related to uremia but could be from constipation as well- continue antiemetics as needed. Continue bowel regimen Giving Plasma-Lyte 500 mL bolus on 05/15 to encourage urine output Continue to hold Entresto, Lasix and spironolactone Monitor BMP, urine output May end up needing dialysis-hold Eliquis in case of need for temporary dialysis catheter placement (3) UTI (urinary tract infection): Plan: Repeat UA on 05/15 with evidence of UTI Has a history of anaphylaxis with penicillin but review of pharmacy records shows she has tolerated both ceftriaxone and cefepime in the past Start cefepime Follow urine culture (4) Paroxysmal ventricular tachycardia: Plan: With an episode of 78 beats of V. tach/torsades on 05/10, placed on amiodarone drip and s/p ICD on 05/12 Appreciate cardiology consultation Keep electrolytes replete-follow BMP, magnesium in the morning Have since discontinued IV amiodarone and switched back to amiodarone 200 mg p.o. once daily-Home dose (5) Aortic stenosis: Plan: Moderate to severe but more severe likely due to low flow from poor EF as per cardiology Needs outpatient evaluation for TAVR which will be arranged by her primary hide splitter Avoid overdiuresis and low blood pressure (6) PAF (paroxysmal atrial fibrillation): Plan: Was in sinus rhythm on admission but converted to rapid atrial fibrillation on 05/05 Cardiology consulted: Cardiology increased amiodarone to BID dosing with hopes of converting to sinus and then on amiodarone drip due to torsades Received 1 dose of IV digoxin on 05/10 Rates are now better controlled the 80s to 90s Switched carvedilol to metoprolol on 05/13-titrate up as able to and then convert to Toprol-XL on discharge Eliquis was on hold for ICD placement-resumed on 05/14, however will place on hold again now in case of need for dialysis catheter Continue p.o. amiodarone (7) Demand ischemia: Plan: Troponin mildly elevated on admission without chest pain or acute EKG changes. Has a known history of CAD with stents and was referred for CABG eval but deemed not a candidate several years ago at [facility] Cardiology consulted Continue Plavix, Eliquis, carvedilol (8) CAD (coronary artery disease): Plan: As noted above (9) CLL (chronic lymphocytic leukemia): Plan: WBC count 10-12 She received parenteral iron replacement while hospitalized. For anemia, checked B12, folate, iron studies all of which are fairly normal except for mildly low transferrin saturation of 13% She did receive 3 doses of IV Venofer this admission-nephrology giving another dose on 05/15 Follow-up with hematology as an outpatient Plan Anemia-stable at 9-10, gave IV iron, workup as above with normal B12, folate, mildly low iron levels Allergies-continue Sho GERD-continue PPI Anxiety/depression-continue on lorazepam as needed for anxiety, continue sertraline. She does feel this hospitalization has worsened her depression- monitor for further worsening Meningioma-noted on brain MRI-chronic and follow as an outpatient Abnormal TSH-TSH recently elevated at 5, is on amiodarone-follow as an outpatient History of stroke-Continue Plavix, Eliquis Prediabetes- patient and family declined insulin-Educated on diet and lifestyle modifications DVT prophylaxis-Eliquis Disposition-continued stay in PCU for worsening renal failure and oliguria, with eventual discharge to [facility] Discussed her care at length with her daughter on the phone on 05/14 and again on 05/15 Admission and Anticipated Discharge Date Admission Date: May 02, 2024 Subjective Patient is feeling depressed. She has not moved her bowels again since yesterday and feels nauseated again after trying to eat lunch. She did vomit after breakfast. She denies shortness of breath. She is upset that her kidney function is worsening. With 100 mL of urine in the last 24 hours I discussed her care with nephrology Telemetry with atrial fibrillation and paced rhythm with rates in the 80s to 90s, some PVCs Physical Exam Constitutional: WD/WN, vitals as above Respiratory: normal respiratory effort; no cough Auscultation: + crackles (Bibasilar); no rhonchi and no wheezes Cardiovascular: Rate/Rhythm: regular rate and + irregularly irregular Heart Sounds: + murmur (3/6 DEBRA at the RUSB) Extremities: no edema Chest (Breasts): Chest: + abnormal inspection of chest (Steri-Strips over ICD in place left anterior chest wall,surrounding bruise) Gastrointestinal (Abdomen): normal bowel sounds, soft, nontender, no hepat osplenomegaly Psychiatric: Orientation: alert, oriented x 3 and cooperative Mood: + depressed mood Results & Data Results & Data Vital Signs (Past 12 Hours) Vital Signs Temp Pulse Pulse Resp BP BP Pulse Ox 05/15/24 10:50 36.7 C 91 H 18 115/68 93 05/15/24 08:28 05/15/24 07:14 88 05/15/24 06:45 36.8 C 92 H 18 121/83 95 05/15/24 03:45 36.6 C 94 H 16 125/86 93 05/15/24 03:15 36.5 C 83 18 110/73 94 O2 Del Method 05/15/24 10:50 Room Air 05/15/24 08:28 Room Air 05/15/24 07:14 05/15/24 06:45 Room Air 05/15/24 03:45 Room Air 05/15/24 03:15 Room Air Laboratory Results CBC, BMP, phosphorus, iron studies, UA reviewed PG Care Time/CCT Total # of Minutes Spent Total Time Spent with Patient: Total time spent is greater than 50% in coordination of care (as documented) at patient's floor/unit and/or counseling patient: Coding Level of Care Code 60555 SUB INP/OBS CARE 3/50MIN Diagnoses HFrEF (heart failure with reduced ejection fraction) I50.20 Chronic kidney disease, stage IV (severe) N18.4 UTI (urinary tract infection) N39.0 Paroxysmal ventricular tachycardia I47.29 Aortic stenosis I35.0 PAF (paroxysmal atrial fibrillation) I48.0 Demand ischemia I24.89 CAD (coronary artery disease) I25.10 CLL (chronic lymphocytic leukemia) C91.90
--- NOTE | 2024-05-15 12:29 | Nephrology Progress Note ---
Date of Service May 15, 2024 Assessment & Plan (1) Acute kidney injury: Plan: * ALLAN/CKD. ALLAN due to CRS +/- hemodynamically mediated ATN. * Preload dependent due to severe - will provide a 1 x fluid bolus to 500 ml plasma-lyte to encourage urine output. * Timing is very sudden for possible atheroembolic or acute GN. Cystitis/UTI mediated ATN is possible. * Entresto has been held. Spironolactone held. * 05/02/24 urinalysis was negative for blood or protein. Repeat demonstrating >50 WBC, 3-5 RBC, 3-5 hyaline casts, +4 bacteria. Cefepime was started. * Kidney function initially improved to creatinine 2.17 mg/dL on May 11 with diuresis. Creatinine is trending upward over the past few days in association with oliguric. UOP did not respond to furosemide 40 mg IV. * Straight cath/bladder scan with <10 ml. * Renal US requested today. * Volume status acceptable. Electrolytes normal. There is no emergent indication for dialysis. * Medications are appropriate for kidney function. * Continue to document strict I/O's. Repeat metabolic profile tomorrow AM. * Low potassium diet. * 1.2 L daily fluid restriction. (2) Chronic kidney disease, stage IV (severe): Plan: * CKD stage G4 (advanced impairment). Baseline Cr has been 1.8-2.0 w/ EGFR 26 cc/min. (3) CHF (congestive heart failure): Plan: * Cardiology following. * Ischemic cardiomyopathy with HFrEF. * Severe . * PAF/PVT - remains in rate controlled atrial fibrillation this morning. * s/p dual chamber ICD May 12. * Entresto being held due to relative hypotension. * Monitor daily weight and document strict I/O's. (4) Anemia: Plan: * H/H stable. * Tsat 11 with ferritin ~400. Venofer 200 mg IV daily started today. Admission and Anticipated Discharge Date Admission Date: May 02, 2024 Subjective No acute events overnight. Jere is very emotional today. She is frustrated. The idea of dialysis is very upsetting. It elicits thoughts about and dying. She has reservations about dialysis but states that she would likely start treatments if indicated. She remains oliguric (~100 ml of urine in the past 24 hours). Thankfully, she does not endorse symptomatic volume overload. She reports some urge to void but only small drops of urine. No abdominal pain or discomfort but significant nausea and very poor appetite. She did move her bowels today but reports straining and continued constipation. She also reported some discomfort to pressure in the lower abdomen. Bladder scan has not demonstrated any residual urine. Jere denies dysuria. She denies fevers or chills. She states that her ICD is causing intermittent stabbing pain and remains very tender. Otherwise, Jere denies chest pains or palpitations. She denies lightheadedness. She denies shortness of breath or orthopnea. Review of Systems Review of Systems: All systems reviewed & are unremarkable except as noted in HPI & below Physical Exam Constitutional: well developed; no acute distress Eyes: + anicteric sclerae ENMT: Mouth: + dry oral mucous membranes (slightly); no oral mucosal abnormality Neck: normal visual inspection and trachea midline Respiratory: normal respiratory effort Auscultation: lungs clear to auscultation bilaterally and + rales (few at the right base) Cardiovascular: Rate/Rhythm: + irregularly irregular Heart Sounds: normal S1, normal S2 and + murmur Extremities: no edema Chest (Breasts): Chest: + pacemaker (ICD with incision CDI) Musculoskeletal: Extremities: no cyanosis and no clubbing Skin: no jaundice and no erythema Neurologic: Motor/Sensory: no tremor and no asterixis Psychiatric: Orientation: alert and oriented x 3 Genitourinary: no CVA tenderness Results & Data Vital Signs (Past 12 Hours) Vital Signs Temp Pulse Pulse Resp BP BP Pulse Ox 05/15/24 10:50 36.7 C 91 H 18 115/68 93 05/15/24 08:28 05/15/24 07:14 88 05/15/24 06:45 36.8 C 92 H 18 121/83 95 05/15/24 03:45 36.6 C 94 H 16 125/86 93 05/15/24 03:15 36.5 C 83 18 110/73 94 O2 Del Method 05/15/24 10:50 Room Air 05/15/24 08:28 Room Air 05/15/24 07:14 05/15/24 06:45 Room Air 05/15/24 03:45 Room Air 05/15/24 03:15 Room Air Laboratory Results Laboratory Results - last 24 hr 05/15/24 05/15/24 05:53 Unknown WBC 14.80 H RBC 3.18 L Hgb 9.7 L Hct 30.0 L MCV 94.3 MCH 30.5 MCHC 32.3 RDW Std Deviation 52.8 H RDW Coeff of Nino 15.4 H Plt Count 283 MPV 10.2 Absolute Nucleated RBC 0.02 Nucleated RBC % (auto) 0.1 Sodium 125 L Potassium 4.4 Chloride 92 L Carbon Dioxide 18 L Anion Gap 15 H BUN 113 H Creatinine 4.01 H D Est Cr Clr Drug Dosing 12.6 Est GFR ( Amer) 11.5 Est GFR (Non-Af Amer) 9.9 BUN/Creatinine Ratio 28.2 H Glucose 141 H Calcium 8.6 Phosphorus 6.2 H Iron 38 TIBC 348 Unsaturated IBC 310 Transferrin % Sat 11 L Ferritin 471.4 H Albumin 3.6 Urine Color Dark Yellow Urine Appearance Cloudy A Urine pH 5.0 Ur Specific Walker 1.034 H Urine Protein 1+ H Urine Glucose (UA) Negative Urine Ketones Trace H Urine Blood Negative Urine Nitrite Negative Urine Bilirubin Negative Urine Urobilinogen Negative Ur Leukocyte Esterase 2+ H Urine WBC (Auto) >50 H Urine RBC (Auto) 3-5 H U Hyaline Cast (Auto) 3-5 H U Epithel Cells (Auto) 0-2 Urine Bacteria (Auto) 4+ H PG Care Time/CCT Total # of Minutes Spent Total Time Spent with Patient: Total time spent is greater than 50% in coordination of care (as documented) at patient's floor/unit and/or counseling patient: Coding Level of Care Code 17744 SUB INP/OBS CARE 3/50MIN Diagnoses Acute kidney injury N17.9 Chronic kidney disease, stage IV (severe) N18.4 CHF (congestive heart failure) I50.9 Heart failure chronicity: unspecified Heart failure type: unspecified Anemia D64.9 (3) CHF (congestive heart failure) Heart failure chronicity: unspecified Heart failure type: unspecified Qualified Code(s): I50.9 - Heart failure, unspecified
[2024-05-15] MEDS: bisacodyL 10 MG SUPP PR STA (13:13)
[2024-05-15] MEDS: PLASMA-LYTE A 500 ML IV ONE ×2 (13:15→19:46)
[2024-05-15] MEDS: SODIUM BICARBONATE 650 MG TAB PO SCH (13:16)
--- NOTE | 2024-05-15 15:21 | Ultrasound Report ---
RENAL ULTRASOUND HISTORY: Acute kidney injury. COMPARISON: Abdomen and pelvis CT 02/12/2024. FINDINGS: Right kidney: 11.3 cm. No hydronephrosis. Severe cortical thinning/atrophy. There is a 1.1 cm upper p ole cyst. Left kidney: 9.5 cm. No hydronephrosis. Moderate cortical thinning. Normal corticomedullary different iation. There is a 7 mm lower pole cyst. A 15 mm hypoechoic focus within the upper pole which may rep resent the residual normal renal parenchyma with surrounding scarring. Bladder: Not well-distended. The ureteral jets are not identified. Miscellaneous: Trace perihepatic ascites. Thickening and edema within the gallbladder wall along the hepatic surface likely corresponds to the underlying hepatic abnormality. No gallstones identified. N egative sonographic Tomas sign. Normal caliber common bile duct at 4 mm IMPRESSION: 1. No hydronephrosis. 2. Severe right and moderate left cortical renal thinning/atrophy. 3. The bladder is not well evaluated due to underdistention. 4. Trace perihepatic ascites. 5. Thickening and edema within the gallbladder wall along the hepatic surface likely corresponds to t he underlying hepatic abnormality. No gallstones identified. ACT 112: Negative or not required by law. Electronically signed by: Arnel Cortés M.D. 05/15/2024 3:19 PM
[2024-05-15] MEDS: CEFEPIME 1,000 MG in SYRINGE 0 ML IV SCH (19:46)
[2024-05-16 07:34] LABS: Hematocrit (blood only) 28.3 % (37.0-47.0); Hemoglobin 9.7 g/dl (12.0-16.0); Mean Corpuscular Hemoglobin 31.3 pg (25.0-34.0); Mean Corpuscular Hgb Conc 34.3 g/dL (32.0-36.0); Mean Corpuscular Volume 91.3 fL (80.0-100.0); Mean Platelet Volume 10.1 fL (9.4-12.4); Platelet Count 290 K/uL (130-400); RDW Coefficient of Variation 15.6 % (11.5-14.5); RDW Standard Deviation 51.6 fL (36.4-46.3); White Blood Count 16.16 K/ul (4.8-10.8)
[2024-05-16 07:53] LABS: Albumin Level 3.5 gm/dl (3.4-5.0); BUN Creatinine Ratio 24.3 (10-20); Calcium 8.5 mg/dl (8.6-10.3); Creatinine Clr Calc Pharmacy 10.4 ml/min; Est GFR (Non-African American) 7.7 ml/min; Magnesium 2.3 mg/dl (1.7-2.4); Phosphorus 7.1 mg/dl (2.5-4.9); Potassium 4.5 mmol/L (3.5-5.1)
[2024-05-16 08:21] LABS: Basophils # (auto) 0.07 K/uL (0.00-0.20); Basophils % (auto) 0.4 %; Echinocytes 1+; Eosinophils # (auto) 0.29 K/uL (0.00-0.50); Eosinophils % (auto) 1.8 %; Immature Granulocytes # (auto) 0.12 K/uL (0.01-0.20); Immature Granulocytes % (auto) 0.7 %; Lymphocytes # (auto) 6.46 K/uL (1.20-3.40); Monocytes # (auto) 0.79 K/uL (0.11-0.59); Monocytes % (auto) 4.9 %; Neutrophils # (auto) 8.43 K/uL (1.40-6.50); Neutrophils % (auto) 52.2 %; Polychromasia 1+; Smudge Cells Present
[2024-05-16] MEDS ORDERED: STAT IV/IM STA (10:50)
[2024-05-16] MEDS ORDERED: SODIUM BICARBONATE 650 MG TAB PO SCH (11:00)
--- NOTE | 2024-05-16 11:41 | Nephrology Progress Note ---
Date of Service May 16, 2024 Assessment & Plan (1) Acute kidney injury: (2) Chronic kidney disease, stage IV (severe): (3) Aortic stenosis: (4) Anemia: (5) UTI (urinary tract infection): (6) CHF (congestive heart failure): (7) Hyponatremia: (8) Metabolic acidosis: Plan Ms. Diaz is an 78 year old female with past medical history significant for stage 4 CKD., baseline Cr has been 1.8-2.0 mg/dl, ASCVD, h/o AMI 2010, CHF, paroxysmal atrial fibrillation, AODM, CLL. Admitted to the hospital on 05/02/24 with generalized weakness, CHF, Echo showed EF 30-35%. She was treated with IV diuretic with improvement in volume status and respiratory status. She was noted to have slight changes in kidney function during initial few days of her hospitalization, creatinine up peaked to 2.9 which eventually started to improve and decrease down to 2.2. She had ICD placed considering paroxysmal A-fib and ventricular tachycardia. Was on Entresto which has been on hold. Eliquis was on hold since 05/14/2024 afternoon. However, kidney function again started to worsen over last few days with decreased urine output. Diuretics has been on hold for last 2 days. She also noted to have multiple electrolyte abnormalities including hyponatremia and metabolic acidosis. Started on sodium bicarbonate yesterday. She was given 2 IV fluid boluses yesterday as urine output dropped and kidney function rapidly worsen. However, urine output remain low over last 24 hours and creatinine now up to 4.9 with BUN 120s. Electrolyte abnormality has been worsening with some confusion. -- Continue to hold diuretics, 150 mL of 3% saline bolus, recheck serum sodium and electrolyte in the afternoon -- Continue to monitor intake and output accurately -- Tentatively keep on plan for tunneled dialysis catheter tomorrow and first dialysis tomorrow unless we see significant improvement in electrolyte and kidney function as well as urine output over next 24 hours. Admission and Anticipated Discharge Date Admission Date: May 02, 2024 Subjective Mrs. Diaz was seen and evaluated this morning with her daughter Lita at bedside. She looks comfortable, denied any specific symptoms but seems to have some confusion according to her daughter. She reports decreased urine output, and record shows urine output only 110 mL over last 24 hours although intake and output was not accurately measured as some of the urine output was unmeasured. Blood pressure has been relatively low. Rapid worsening of kidney function noted with creatinine 4.9 this morning compared to 4.0 yesterday with BUN 120s and multiple electrolyte abnormalities including bicarb 18 and sodium dropped further to 124 this morning. Review of Systems Review of Systems: Detailed review of system was done and pertinent positives and negatives are mentioned above. Physical Exam Constitutional: WD/WN, vitals as above no acute distress Eyes: + anicteric sclerae Neck: normal visual inspection Respiratory: no respiratory distress Auscultation: + rales (at mainly right base) Cardiovascular: Rate/Rhythm: + irregularly irregular Heart Sounds: normal S1, normal S2 and + murmur Extremities: no edema Neurologic: speech normal, no focal deficit Psychiatric: generally alert, oriented with normal mood but some confusion noted Results & Data Vital Signs (Past 12 Hours) Vital Signs Temp Pulse Pulse Resp BP Pulse Ox O2 Del Method 05/16/24 10:03 77 05/16/24 07:57 36.6 C 96 H 20 100/66 92 Room Air 05/16/24 03:23 36.6 C 79 18 104/79 93 Room Air 05/16/24 01:04 36.8 C 90 18 148/84 H 93 Room Air PG Care Time/CCT Total # of Minutes Spent Total Time Spent with Patient: Total time spent is greater than 50% in coordination of care (as documented) at patient's floor/unit and/or counseling patient: Coding Level of Care Code 35882 SUB INP/OBS CARE 2/35MIN Diagnoses Acute kidney injury N17.9 Chronic kidney disease, stage IV (severe) N18.4 Aortic stenosis I35.0 Anemia D64.9 UTI (urinary tract infection) N39.0 CHF (congestive heart failure) I50.9 Heart failure chronicity: unspecified Heart failure type: unspecified Hyponatremia E87.1 Metabolic acidosis E87.20 (6) CHF (congestive heart failure) Heart failure chronicity: unspecified Heart failure type: unspecified Qualified Code(s): I50.9 - Heart failure, unspecified
[2024-05-16] MEDS: SODIUM CHLORIDE 3 % 150 ML IV ONE (11:42)
--- NOTE | 2024-05-16 15:18 | Hospitalist Progress Note ---
Date of Service May 16, 2024 Assessment & Plan (1) HFrEF (heart failure with reduced ejection fraction): Plan: Known ejection fraction of 30%. She received parenteral Lasix earlier this admission. She is now on room air. Repeat portable chest x-ray pending today, May 16. Entresto has been discontinued to remove the ARB. Appreciate cardiology consultation and recommendations. Echocardiogram reveals severe aortic stenosis, moderate to severe MR, EF 30-35%, regional wall motion abnormalities. Has a known history of CAD and was not a candidate for CABG when evaluated several years ago (2) Chronic kidney disease, stage IV (severe): Plan: With ALLAN in the setting of CKD stage IV. She will begin hemodialysis tomorrow, May 17. Hemodialysis catheter will be placed tomorrow, May 17, prior to onset of hemodialysis. Entresto, Lasix, and spironolactone are currently on hold. (3) UTI (urinary tract infection): Plan: Gram-negative's isolated. Identification and sensitivities pending. Continue cefepime for now, day 2 (4) Paroxysmal ventricular tachycardia: Plan: Occurred on May 10. She was given intravenous amiodarone and now is on oral amiodarone. ICD was placed on May 12. Appreciate cardiology consultation (5) Aortic stenosis: Plan: Seen on cardiac echo. Needs outpatient evaluation for TAVR which will be arranged by her primary senior care assistant. Avoid overdiuresis and low blood pressure (6) PAF (paroxysmal atrial fibrillation): Plan: Was in sinus rhythm earlier this admission but converted to rapid atrial fibrillation on 05/05. Cardiology consultation and recommendations appreciated. Carvedilol has been switched to metoprolol to tartrate and eventually hopeful switch to metoprolol succinate once daily dosing. Intravenous amiodarone has been switched to oral dosing. Eliquis is currently on hold. (7) Demand ischemia: Plan: No evidence of acute coronary syndrome. Telemetry. Continue current medical management (8) CAD (coronary artery disease): Plan: Stable. Continue current medical management. Telemetry (9) CLL (chronic lymphocytic leukemia): Plan: Serial labs. Currently quiescent. Iron deficiency noted. She has received parenteral iron replacement Plan To be determined Admission and Anticipated Discharge Date Admission Date: May 02, 2024 Subjective Alert and oriented. No distress. She is on room air. Repeat portable chest x- ray is pending. Urine culture growing gram-negative bacilli. Final identification and sensitivities pending. Currently on cefepime, day 2. Creatinine continues to rise. Now up to 4.9. Hemodialysis catheter will be placed tomorrowMay 17. Serum osmolarity is elevated at 305. Will monitor intake and output. Entresto has been discontinued to remove the ARB. Carvedilol has been switched to metoprolol tartrate for now and eventually to metoprolol succinate if well-tolerated. Zaina is on hold. She is receiving parenteral iron replacement for iron deficiency. She is anxious about starting hemodialysis tomorrowMay 17 Review of Systems 2 Review of Systems: Constitutionalno fever or chills ENTno blurred vision, no double vision, no epistaxis, no sore throat Respiratoryno cough, no wheezing. Shortness of breath with exertion Cardiacno palpitations, no chest pain, no syncope Humble nausea, vomiting, diarrhea, melena, hematochezia GUno urinary retention, no urinary incontinence, no dysuria, no hematuria Musculoskeletalno joint pain, no muscle tenderness Skinno bruising, no rashes, no pruritus Neurono isolated weakness, no paresthesia Psychflat affect Physical Exam 2 Physical Exam: General-alert and oriented x3, no fever, no chills HEENT-head atraumatic and normocephalic, pupils equal and reactive to light, extraocular muscles intact Neck-no lymphadenopathy or thyromegaly, trachea midline Chest-faint bibasilar inspiratory rales. No wheezing. No dullness to percussion Cardiac-regular rate and rhythm, normal S1 and S2 Abdomen-normal bowel sounds, no hepatosplenomegaly Extremities-no cyanosis, clubbing, or edema Neuro-cranial nerves II through XII intact, motor and sensory function within normal limits, strength symmetrical with generalized weakness, no focal deficits Psych-flat affect Results & Data Results & Data Vital Signs (Past 12 Hours) Vital Signs Temp Pulse Pulse Resp BP Pulse Ox O2 Del Method 05/16/24 11:29 36.5 C 83 18 112/75 93 Room Air 05/16/24 10:03 77 05/16/24 07:57 36.6 C 96 H 20 100/66 92 Room Air 05/16/24 03:23 36.6 C 79 18 104/79 93 Room Air Laboratory Results 05/16/24 06:50 PG Care Time/CCT Total # of Minutes Spent Total Time Spent with Patient: Total time spent is greater than 50% in coordination of care (as documented) at patient's floor/unit and/or counseling patient: Coding Level of Care Code 90479 SUB INP/OBS CARE 3/50MIN Diagnoses HFrEF (heart failure with reduced ejection fraction) I50.20 Chronic kidney disease, stage IV (severe) N18.4 UTI (urinary tract infection) N39.0 Paroxysmal ventricular tachycardia I47.29 Aortic stenosis I35.0 PAF (paroxysmal atrial fibrillation) I48.0 Demand ischemia I24.89 CAD (coronary artery disease) I25.10 CLL (chronic lymphocytic leukemia) C91.90
--- NOTE | 2024-05-16 16:59 | XRay Report ---
XR chest 1V portable CLINICAL HISTORY: CHF TECHNIQUE: Single frontal radiograph of the chest was obtained. Comparison: Comparison is made to chest radiograph 05/13/2024 FINDINGS: Pacemaker defibrillator is seen. Cardiomegaly is noted. Prominence and cephalization of the vasculatu re is seen. Small bilateral pleural effusions are seen. IMPRESSION: 1. Cardiomegaly and mild pulmonary edema. 2. Small bilateral pleural effusions. ACT 112: Negative or not required by law. Electronically signed by: Emre Dennis M.D. 05/16/2024 4:57 PM
[2024-05-16 17:39] LABS: Albumin Level 3.5 gm/dl (3.4-5.0); Calcium 8.2 mg/dl (8.6-10.3); Potassium 4.5 mmol/L (3.5-5.1)
[2024-05-16 17:52] LABS: BUN Creatinine Ratio 24.3 (10-20); Creatinine Clr Calc Pharmacy 9.9 ml/min; Est GFR (African American) 8.4 ml/min; Est GFR (Non-African American) 7.3 ml/min; Phosphorus 7.1 mg/dl (2.5-4.9)
--- NOTE | 2024-05-16 17:57 | Electrocardiogram Report ---
Test Reason : Blood Pressure : */* mmHG Vent. Rate : 94 BPM Atrial Rate : * BPM P-R Int : * ms QRS Dur : 108 ms QT Int : 368 ms P-R-T Axes : * 80 152 degrees QTcB Int : 460 ms Atrial fibrillation Abnormal ECG When compared with ECG of 11-May-2024 15:58, Minimal criteria for Anterior infarct are no longer Present QT has shortened Confirmed by Edgardo Sanders ([id number]) on 05/16/2024 5:57:23 PM Referred By: REFERRED SELF Confirmed By: Edgardo Sanders
[2024-05-17 06:51] LABS: Hematocrit (blood only) 28.1 % (37.0-47.0); Hemoglobin 9.5 g/dl (12.0-16.0); Mean Corpuscular Hemoglobin 30.9 pg (25.0-34.0); Mean Corpuscular Hgb Conc 33.8 g/dL (32.0-36.0); Mean Corpuscular Volume 91.5 fL (80.0-100.0); Mean Platelet Volume 10.2 fL (9.4-12.4); Nucleated RBC # (auto) 0.03 K/uL (0.00-0.12); Nucleated RBC % (auto) 0.2 %; Platelet Count 291 K/uL (130-400); RDW Coefficient of Variation 15.7 % (11.5-14.5); RDW Standard Deviation 51.1 fL (36.4-46.3); Red Blood Count 3.07 M/uL (4.20-5.40); White Blood Count 18.15 K/ul (4.8-10.8)
[2024-05-17 07:26] LABS: Albumin Level 3.4 gm/dl (3.4-5.0); BUN Creatinine Ratio 22.4 (10-20); Calcium 8.1 mg/dl (8.6-10.3); Creatinine Clr Calc Pharmacy 8.9 ml/min; Est GFR (African American) 7.3 ml/min; Est GFR (Non-African American) 6.3 ml/min; Phosphorus 7.7 mg/dl (2.5-4.9); Potassium 4.8 mmol/L (3.5-5.1)
[2024-05-17] MEDS: CEFEPIME 1,000 MG in SYRINGE 0 ML IV SCH (07:45)
[2024-05-17 08:41] LABS: ALC (manual) 7.26 K/uL (1.2-3.4); ANC (manual) 9.26 K/uL (1.4-6.5); Basophils # (manual) 0.18 K/uL (0-0.2); Basophils % (manual) 1 %; Echinocytes 1+; Eosinophils # (manual) 0.36 K/uL (0-0.50); Eosinophils % (manual) 2 %; Lymphocytes # (manual) 7.26 K/uL (1.2-3.4); Lymphocytes % (manual) 40 %; Monocytes # (manual) 1.09 K/uL (0.11-0.59); Monocytes % (manual) 6 %; Neutrophils # (manual) 9.26 K/uL (1.40-6.50); Neutrophils % (manual) 51 %; Polychromasia 1+
--- NOTE | 2024-05-17 10:06 | Nephrology Progress Note ---
Date of Service May 17, 2024 Assessment & Plan (1) Acute kidney injury: (2) Chronic kidney disease, stage IV (severe): (3) Aortic stenosis: (4) Anemia: (5) UTI (urinary tract infection): (6) CHF (congestive heart failure): (7) Hyponatremia: (8) Metabolic acidosis: Plan Ms. Diaz is an 78 year old female with past medical history significant for stage 4 CKD., baseline Cr has been 1.8-2.0 mg/dl, ASCVD, h/o AMI 2010, CHF, paroxysmal atrial fibrillation, AODM, CLL. Admitted to the hospital on 05/02/24 with generalized weakness, CHF, Echo showed EF 30-35%. She was treated with IV diuretic with improvement in volume status and respiratory status. She was noted to have slight changes in kidney function during initial few days of her hospitalization, creatinine up peaked to 2.9 which eventually started to improve and decrease down to 2.2. She had ICD placed considering paroxysmal A-fib and ventricular tachycardia. Was on Entresto which has been on hold. Eliquis was on hold since 05/14/2024 afternoon. However, kidney function again started to worsen over last few days with decreased urine output. Diuretics has been on hold for last 2 days. She also noted to have multiple electrolyte abnormalities including hyponatremia and metabolic acidosis, on sodium bicarbonate. Kidney function rapidly worsen. Rapid worsening of kidney function with electrolyte abnormality. BP relatively low, afebrile. --plan for tunneled dialysis catheter and first dialysis this afternoon. --left arm nephrology precaution, dose meds eGFR <10 --continue to monitor for recovery of kidney function while on dialysis Admission and Anticipated Discharge Date Admission Date: May 02, 2024 Srikanth Oquendo was seen and evaluated this morning. She looks comfortable, denied any specific symptoms, waiting for OR for TDC. She reports slight increase in urine output. Blood pressure has been relatively low. Rapid worsening of kidney function and multiple electrolyte abnormalities. Review of Systems Review of Systems: Detailed review of system was done and pertinent positives and negatives are mentioned above. Physical Exam Constitutional: WD/WN, vitals as above no acute distress Eyes: + anicteric sclerae Neck: normal visual inspection Respiratory: no respiratory distress Auscultation: + rales (at mainly right base) Cardiovascular: Rate/Rhythm: + irregularly irregular Heart Sounds: normal S1, normal S2 and + murmur Extremities: no edema Neurologic: no focal motor deficits and not confused Psychiatric: A+Ox3, euthymic affect Results & Data Vital Signs (Past 12 Hours) Vital Signs Temp Pulse Pulse Resp BP Pulse Ox O2 Del Method 05/17/24 08:39 94 H 05/17/24 08:39 Room Air 05/17/24 08:20 36.4 C L 96 H 20 108/74 92 Room Air 05/17/24 04:37 36.6 C 65 18 107/66 95 Room Air 05/16/24 23:35 36.9 C 93 H 18 111/70 95 Room Air 05/16/24 23:00 88 PG Care Time/CCT Total # of Minutes Spent Total Time Spent with Patient: Total time spent is greater than 50% in coordination of care (as documented) at patient's floor/unit and/or counseling patient: Coding Level of Care Code 23062 SUB INP/OBS CARE 2/35MIN Diagnoses Acute kidney injury N17.9 Chronic kidney disease, stage IV (severe) N18.4 Aortic stenosis I35.0 Anemia D64.9 UTI (urinary tract infection) N39.0 CHF (congestive heart failure) I50.9 Heart failure chronicity: unspecified Heart failure type: unspecified Hyponatremia E87.1 Metabolic acidosis E87.20 (6) CHF (congestive heart failure) Heart failure chronicity: unspecified Heart failure type: unspecified Qualified Code(s): I50.9 - Heart failure, unspecified
[2024-05-17 10:28] LABS: Hepatitis B Surface Ab Quant < 3.00 mIU/mL (>or=10mIU/mL Immune); Hepatitis B Surface Antibody Non-Immune
[2024-05-17 10:32] LABS: Hep B Surface Ag with confirm Negative (Negative)
--- NOTE | 2024-05-17 12:14 | Consultation ---
Date of Consultation May 17, 2024 Assessment & Plan (1) Acute kidney injury: Pt with worsening renal fxn, a few days out from AICD placement, now requiring HD. Planning on permcath insertion later today. Procedure, benefits, alternatives discussed at length with pt and daughter. Risks, including but not limited to, bleeding, infection, damage to local structures, abnormal heart rhythm, collapsed lung, thromboembolism, catheter fragmentation discussed with pt and daughter, who is POA, by myself at Dr Hernández's request. Daughter expresses understanding and agreement to proceed. Patient was seen, examined, and chart reviewed. Agree with exam and treatment plan of the Vascular PA. History of Present Illness Reason for Consultation: ESRD, need permcath Attending Physician: Emeterio Dacosta MD History of Present Illness 78 yo f with hx of HTN, DMII, recent AICD placement, aortic stenosis, CAD, CKD, anemia, CHF, spinal stenosis, GERD, dyslipidemia, admitted with worsening renal fxn, seen in consultation today for permcath insertion at nephrology request. Pt is very confused presently and unable to relate pertinent HPI. Denies any complaints presently. Daughter, Lita, present and states her mother has been more confused in past 1-2 days. Allergies Allergy/AdvReac Type Severity Reaction Status Date / Time bee venom protein (honey bee) Allergy Severe Anaphylaxis Verified 04/27/24 15:19 Penicillins Allergy Severe Rash, Verified 04/27/24 15:19 anaphylaxis Sulfa (Sulfonamide Allergy Severe Rash, Verified 04/27/24 15:19 Antibiotics) anaphylaxis Home Medications Medication Instructions Recorded Confirmed Type abaloparatide (Tymlos) 80 mcg subcut QAM 06/19/23 05/02/24 History apixaban 5 mg tablet (Eliquis) 5 mg PO BID #180 tabs 08/25/23 05/02/24 Rx atorvastatin 80 mg tablet (Lipitor) 80 mg PO HS #90 tabs 08/25/23 05/02/24 Rx clopidogrel 75 mg tablet 75 mg PO DAILY #90 tabs 08/25/23 05/02/24 Rx folic acid 1 mg tablet 1 mg PO DAILY #90 tabs 08/25/23 05/02/24 Rx lancets 31 gauge (Comfort Touch #100 ea 08/25/23 04/27/24 Rx Ultra Thin Lancets) nitroglycerin 0.4 mg sublingual 0.4 mg sublingual UD PRN Chest 08/25/23 05/02/24 Rx tablet (Nitrostat) Pain #25 tabs sacubitril 97 mg-valsartan 103 mg 1 tab PO BID #120 tabs 08/25/23 05/02/24 Rx tablet (Entresto) sertraline 100 mg tablet (Zoloft) 100 mg PO DAILY #90 tabs 08/25/23 05/02/24 Rx blood sugar diagnostic (OneTouch #100 ea 09/01/23 04/27/24 Rx Verio test strips) furosemide 20 mg tablet 20 mg PO QAM #90 tabs 11/10/23 05/02/24 Rx fexofenadine 180 mg tablet 180 mg PO Q24H #90 tabs 11/24/23 05/02/24 Rx fluticasone propionate 50 1 spray intranasal QAM #48 mL 12/02/23 05/02/24 Rx mcg/actuation nasal spray,suspension polyethylene glycol 3350 17 17 g PO DAILY #119 grams 12/20/23 05/02/24 Rx gram/dose oral powder (Miralax) pantoprazole 40 mg tablet,delayed 40 mg PO DAILY #90 tabs 01/18/24 05/02/24 Rx release amiodarone 200 mg tablet 200 mg PO QAM #90 tabs 03/07/24 05/02/24 Rx spironolactone 25 mg tablet 25 mg PO DAILY #90 tabs 03/07/24 05/02/24 Rx albuterol sulfate 90 mcg/actuation 1 puff inhalation Q6H PRN 03/21/24 05/02/24 Rx aerosol inhaler Shortness Of Breath #8.5 grams cholecalciferol (vitamin D3) 50 2,000 unit PO QAM #90 tabs 03/27/24 05/02/24 Rx mcg (2,000 unit) tablet triamcinolone acetonide 0.5 % 1 applic topical BID #15 grams 04/21/24 05/02/24 Rx topical ointment carvedilol 6.25 mg tablet 3.125 mg (1/2 x 6.25 mg) PO BID 04/27/24 05/02/24 Rx #180 tabs prednisone 10 mg tablet 10 mg PO UD 05/02/24 05/02/24 History mecobalamin (vitamin B12) 1,000 1,000 mcg sublingual DAILY #90 tabs 05/09/24 Rx mcg disintegrating tablet,sublingual Patient History Medical History 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 rubber mixer 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 CLL (chronic lymphocytic leukemia) Ischemic cardiomyopathy PAF (paroxysmal atrial fibrillation) Diabetes mellitus, type 2 Depression Hypertension Seasonal allergies Cerebral artery occlusion History of CHF (congestive heart failure) Osteoarthritis of right knee GEL SHOT, MOST RECENT INJECTION FEBRUARY 2021 DM2 (diabetes mellitus, type 2) History of colon polyps Nausea and vomiting after administration of anesthetic agent Osteoarthritis Leukemia just monitoring On anticoagulant therapy Hearing deficit Stroke x3 ?--2010/2011--no neurologist, left arm weakness, uses cane to ambulate Hyperlipidemia Atrial fibrillation DX 2018 ? DR KENNEDY - NO HX CARDIOVERSION Myocardial Infarction 2010 & 2019...STENT X 1 Asthma LAST USE LAST WEEK Surgical History Hx of cataract surgery B/L H/O heart artery stent HX [place] , STENT X1 2019 History of phacoemulsification of cataract of both eyes with intraocular lens implantation History of dilatation and curettage x3 History of total left knee replacement (TKR) History of right breast biopsy x3--benign History of laparoscopy History of bilateral breast reduction surgery History of colonoscopy Family History Mother Family history of diabetes mellitus Myocardial infarction Family/Other Family history of diabetes mellitus cousin Aunt Breast cancer Father Myocardial infarction Stroke Other No family history of adverse response to anesthesia Denies family history of Ovarian cancer Prostate cancer Colorectal cancer Uterine cancer Social History Smoking Status: Never smoker Tobacco Type: Cigarettes Age Started Using Tobacco: 53; Age Quit Using Tobacco: 62; Cigarettes Per Day: HX OCCASSIONAL CIGARETTE 15 YRS AGO; Second Hand Exposure: No; Do You Dip or Chew Tobacco: No; Hx Alcohol Use: No Hx Substance Use: No Preferred Language: Divehi Communication Ability: Effective Visual Impairment: No Limitations Hearing Ability: Use of Hearing Aid Banquet Director Required: No Beliefs That Will Affect Care: None marital status: / Current Living Situation: Family Current Living Situation Comment: lives with daughter current occupational status: retired current occupation: worked for [employer] Feels Safe at Home: Yes Childhood Exposure to Second-Hand Smoke: Yes Diet: low salt Diet Comment: low sodium Dental Care, Regularly: Yes Physical Activity Frequency: Does not Exercise Seatbelt Use: always Sunscreen Use: No Assistive Devices: Walker and Wheelchair Review of Systems Review of Systems: Unobtainable due to cognitive status Physical Exam Constitutional: WD/WN, vitals as above + obese and cooperative; not in distress Neck: trachea midline Respiratory: normal respiratory effort, lungs clear to auscultation Auscultation: + diminished lung sounds Cardiovascular: Rate/Rhythm: regular rate and regular rhythm Vessels: posterior tibial pulses present, dorsalis pedis pulses present and radial pulses present; + abnormal peripheral pulses Extremities: normal capillary refill and + edema Gastrointestinal (Abdomen): Inspection/Auscultation: abdomen normal to inspection and normal bowel sounds Percussion/Palpation: abdomen soft; abdomen nontender Musculoskeletal: no cyanosis or clubbing, extremities motor strength 5/5 Skin: no rashes, warm and dry Neurologic: moves all extremities, awake and + confused; no focal motor deficits Psychiatric: Orientation: alert, oriented to person and cooperative; + not oriented to place and + not oriented to time Results & Data Vital Signs (Past 12 Hours) Vital Signs Temp Pulse Pulse Resp BP Pulse Ox O2 Del Method 05/17/24 12:00 36.5 C 97 H 18 115/65 97 Room Air 05/17/24 08:39 94 H 05/17/24 08:39 Room Air 05/17/24 08:20 36.4 C L 96 H 20 108/74 92 Room Air 05/17/24 04:37 36.6 C 65 18 107/66 95 Room Air
--- NOTE | 2024-05-17 12:59 | Hospitalist Progress Note ---
Date of Service May 17, 2024 Assessment & Plan (1) HFrEF (heart failure with reduced ejection fraction): Plan: Known ejection fraction of 30%. She received parenteral Lasix earlier this admission. She is now on room air. Portable chest x-ray done May 16 reveals mild edema with small bilateral pleural effusions. Entresto has been discontinued due to renal failure to remove the ARB. Appreciate cardiology consultation and recommendations. Echocardiogram reveals severe aortic stenosis, moderate to severe MR, EF 30-35%, regional wall motion abnormalities. Has a known history of CAD and was not a candidate for CABG when evaluated several years ago (2) Chronic kidney disease, stage IV (severe): Plan: With ALLAN in the setting of CKD stage IV. She will begin hemodialysis today, May 17. Permacath hemodialysis catheter will be placed today, May 17, prior to onset of hemodialysis. Entresto, Lasix, and spironolactone are currently on hold. (3) UTI (urinary tract infection): Plan: Gram-negative's isolated. Identification and sensitivities pending. Continue cefepime for now, day 3 (4) Paroxysmal ventricular tachycardia: Plan: Occurred on May 10. She was given intravenous amiodarone and now is on oral amiodarone. ICD was placed on May 12. Surgical site is unremarkable. Appreciate cardiology consultation (5) Aortic stenosis: Plan: Seen on cardiac echo. Needs outpatient evaluation for TAVR which will be arranged by her primary facility attendant. Avoid overdiuresis and low blood pressure (6) PAF (paroxysmal atrial fibrillation): Plan: Was in sinus rhythm earlier this admission but converted to rapid atrial fibrillation on 05/05. Cardiology consultation and recommendations appreciated. Carvedilol has been switched to metoprolol to tartrate and eventually hopeful switch to metoprolol succinate once daily dosing. Intravenous amiodarone has been switched to oral dosing. Eliquis is currently on hold. (7) Demand ischemia: Plan: No evidence of acute coronary syndrome. Telemetry. Continue current medical management (8) CAD (coronary artery disease): Plan: Stable. Continue current medical management. Telemetry (9) CLL (chronic lymphocytic leukemia): Plan: Serial labs. Currently quiescent. Iron deficiency noted. She has received parenteral iron replacement Plan She will need placement at the time of discharge. Hopefully Center care Admission and Anticipated Discharge Date Admission Date: May 02, 2024 Subjective Stable overall but exhibiting symptoms of metabolic encephalopathy due to azotemia. She will undergo permacath placement today followed by hemodialysis. Appreciate vascular surgery and nephrology assistance. Daily labs. Recent ICD placement surgical site is unremarkable. Urine culture shows gram-negative bacilli. She remains on cefepime, day 3. Creatinine continues to rise, now up to 5.8. Eliquis is temporarily on hold. Review of Systems 2 Review of Systems: Constitutionalno fever or chills ENTno blurred vision, no double vision, no epistaxis, no sore throat Respiratoryno cough, no wheezing. Shortness of breath with exertion Cardiacno palpitations, no chest pain, no syncope Humble nausea, vomiting, diarrhea, melena, hematochezia GUno urinary retention, no urinary incontinence, no dysuria, no hematuria Musculoskeletalno joint pain, no muscle tenderness Skinno bruising, no rashes, no pruritus Neurono isolated weakness, no paresthesia. Mentation however has been affected by azotemia. She is exhibiting symptoms of metabolic encephalopathy Psychflat affect Physical Exam 2 Physical Exam: General-awake with symptoms of metabolic encephalopathy. No fever. HEENT-head atraumatic and normocephalic, pupils equal and reactive to light, extraocular muscles intact Neck-no lymphadenopathy or thyromegaly, trachea midline Chest-faint bibasilar inspiratory rales. No wheezing. No dullness to percussion Cardiac-regular rate and rhythm, normal S1 and S2 Abdomen-normal bowel sounds, no hepatosplenomegaly Extremities-no cyanosis, clubbing, or edema Neuro-cranial nerves II through XII intact, motor and sensory function within normal limits, strength symmetrical with generalized weakness, no focal deficits Psych-flat affect Results & Data Results & Data Vital Signs (Past 12 Hours) Vital Signs Temp Pulse Pulse Resp BP Pulse Ox O2 Del Method 05/17/24 12:00 36.5 C 97 H 18 115/65 97 Room Air 05/17/24 08:39 94 H 05/17/24 08:39 Room Air 05/17/24 08:20 36.4 C L 96 H 20 108/74 92 Room Air 05/17/24 04:37 36.6 C 65 18 107/66 95 Room Air Laboratory Results 05/17/24 05:53 05/17/24 05:53 PG Care Time/CCT Total # of Minutes Spent Total Time Spent with Patient: Total time spent is greater than 50% in coordination of care (as documented) at patient's floor/unit and/or counseling patient: Coding Level of Care Code 31416 SUB INP/OBS CARE 50MIN Diagnoses HFrEF (heart failure with reduced ejection fraction) I50.20 Chronic kidney disease, stage IV (severe) N18.4 UTI (urinary tract infection) N39.0 Paroxysmal ventricular tachycardia I47.29 Aortic stenosis I35.0 PAF (paroxysmal atrial fibrillation) I48.0 Demand ischemia I24.89 CAD (coronary artery disease) I25.10 CLL (chronic lymphocytic leukemia) C91.90
[2024-05-17] MEDS: SODIUM CHLORIDE 0.9% 1,000 ML IV SCH (13:44)
--- NOTE | 2024-05-17 14:10 | Pre Anesthesia Assessment ---
Date of Service May 17, 2024 Pre Sedation Assessment Vital Signs Temp Pulse Pulse Resp BP BP Pulse Ox 05/17/24 13:22 36.6 C 89 20 120/81 96 05/17/24 12:00 36.5 C 97 H 18 115/65 97 05/17/24 08:39 94 H 05/17/24 08:39 05/17/24 08:20 36.4 C L 96 H 20 108/74 92 05/17/24 04:37 36.6 C 65 18 107/66 95 05/16/24 23:35 36.9 C 93 H 18 111/70 95 05/16/24 23:00 88 05/16/24 21:25 05/16/24 19:35 36.8 C 93 H 20 114/80 94 05/16/24 15:53 36.5 C 92 H 18 110/74 92 O2 Del Method 05/17/24 13:22 Room Air 05/17/24 12:00 Room Air 05/17/24 08:39 05/17/24 08:39 Room Air 05/17/24 08:20 Room Air 05/17/24 04:37 Room Air 05/16/24 23:35 Room Air 05/16/24 23:00 05/16/24 21:25 Room Air 05/16/24 19:35 Room Air 05/16/24 15:53 Room Air Cardiovascular RRR, no murmur, no edema Respiratory normal respiratory effort, lungs clear to auscultation Pre-Sedation Airway Assessment Smoking Status: Never smoker Hx Sleep Apnea: No Hx Difficult Intubation: No Short, Thick Neck: No Thyromental Distance: > or= 3.5 Finger Breadths Oral Cavity: + WNL Mallampati Class: III ASA: ASA3 NPO Status Date of Last Intake of Fluids: 05/12/24 Time of Last Intake of Fluids: 06:00 Date of Last Intake of Solid Food: 05/11/24 Time of Last Intake of Solid Foods: 21:00 Procedure Planning Contraindications for Sedation: none Current Medications Reviewed: Yes Notes The planned sedation has been discussed with the patient. Informed Consent was obtained. I have identified the patient, determined the appropriateness of sedation and have assessed the patient immediately prior to the procedure. All medicine(s) and interventions are by my order.
[2024-05-17] MEDS: MIDAZOLAM HCL 1 MG/ML 2ML VIAL ONE (14:32)
[2024-05-17] MEDS: fentaNYL citrate PF 100 MCG/2 ML VIAL ONE (14:32)
--- NOTE | 2024-05-17 14:58 | Post Operative Brief Note ---
Immediate Post Op Note Date of Surgery May 17, 2024 Pre & Post Diagnosis Operation Date: 05/17/24 07:50 Pre-Op Diagnosis: ACUTE KIDNEY INJURY Post-Op Diagnosis: ACUTE KIDNEY INJURY I identified the patient and participated in the time-out.: Yes Procedure Operation Date: 05/17/24 07:50 Actual Procedures p Perm Catheter Insertion,Right Internal Jugular Approach,Ultrasound Localization of Right Internal Jugular Vein, Fluoroscopy for Positioning,Moderate Sedation [id number](Right) - Dontrell Hernández MD Surgeon Dontrell Hernández MD Environmental Field Office Manager MD Kristin Estimated Blood Loss 5 Findings Consistent with Post-Op Diagnosis Anesthesia Type RN Sedation Complications none Disposition Accompanied Patient To Recovery: No Disposition: Recovery Room
--- NOTE | 2024-05-17 14:58 | Operative Report ---
Post Operative Report Pre & Post Diagnosis Operation Date: 05/17/24 07:50 Pre-Op Diagnosis: ACUTE KIDNEY INJURY Post-Op Diagnosis: ACUTE KIDNEY INJURY I identified the patient and participated in the time-out.: Yes Procedure Operation Date: 05/17/24 07:50 Actual Procedures p Perm Catheter Insertion,Right Internal Jugular Approach,Ultrasound Localization of Right Internal Jugular Vein, Fluoroscopy for Positioning,Moderate Sedation [id number](Right) - Dontrell Hernández MD Surgeon Dontrell Hernández MD Optical Brightener Maker Helper Brianne Medley MD Estimated Blood Loss 5 Findings See Below Right IJ catheter placed under direct visualization with good position confirmed on fluoroscopy. Specimens None Drains None Anesthesia Type RN Sedation Complications None Indications 78 year old female with acute kidney injury with need for access for hemodialysis Description of Procedure Patient was taken to the angio suite and placed in the supine position. The right side of the neck and chest wall were prepped and draped in a sterile manner. Local anesthesia was then administered to the appropriate areas of the neck and chest wall. Ultrasound was then used to locate the right internal jugular vein. The vein compressed easily, had no filling defects, and was patent. The vein was then punctured under direct ultrasound imaging. A guidew ro was then passed centrally under fluoroscopic imaging. A stab wound was then made in the anterior chest wall and a 19 cm permcath was passed from the stab wound on the chest wall to the puncture site on the neck. The puncture site was then dilated until the 14Fr peel away sheath was inserted. The permcath was then inserted through the sheath to a central position in the distal superior vena cava. The peel away sheath was then removed. The catheter was then sutured in place using nylon sutures. The puncture was then closed using a 4-0 Vicryl subcuticular suture. Dermabond was used for a dressing on the puncture site. Both ports aspirated and flushed easily and were then packed with heparin. A sterile dressing was applied to the catheter. The patient tolerated the procedure well. Dr Hernández was present for all critical portions of the procedure. Dr. Hernández was present and scrubbed for the entire procedure. I attest to the content of the Intraoperative Record and any orders documented therein. Any exceptions are noted below.
[2024-05-17] MEDS: HEPARIN SOD (PORCINE) 5,000 UNITS/ML VIAL ONE (15:01)
[2024-05-17] MEDS: LIDOCAINE 1% LOCAL 20 ML VIAL ONE (15:01)
[2024-05-17] MEDS: EPOETIN ALFA 20,000 UNITS/ML VIAL IV STA (15:46)
[2024-05-18 06:18] LABS: Albumin Level 3.3 gm/dl (3.4-5.0); BUN Creatinine Ratio 19.9 (10-20); Calcium 7.9 mg/dl (8.6-10.3); Creatinine Clr Calc Pharmacy 10.8 ml/min; Est GFR (African American) 9.2 ml/min; Est GFR (Non-African American) 7.9 ml/min; Hematocrit (blood only) 27.9 % (37.0-47.0); Hemoglobin 9.3 g/dl (12.0-16.0); Mean Corpuscular Hemoglobin 30.7 pg (25.0-34.0); Mean Corpuscular Hgb Conc 33.3 g/dL (32.0-36.0); Mean Corpuscular Volume 92.1 fL (80.0-100.0); Nucleated RBC # (auto) 0.06 K/uL (0.00-0.12); Nucleated RBC % (auto) 0.4 %; Platelet Count 265 K/uL (130-400); RDW Coefficient of Variation 15.7 % (11.5-14.5); RDW Standard Deviation 51.6 fL (36.4-46.3); Red Blood Count 3.03 M/uL (4.20-5.40); White Blood Count 16.91 K/ul (4.8-10.8)
[2024-05-18 08:14] LABS: Basophils # (auto) 0.09 K/uL (0.00-0.20); Basophils % (auto) 0.5 %; Echinocytes 1+; Eosinophils # (auto) 0.19 K/uL (0.00-0.50); Eosinophils % (auto) 1.1 %; Immature Granulocytes % (auto) 0.6 %; Lymphocytes # (auto) 6.71 K/uL (1.20-3.40); Lymphocytes % (auto) 39.7 %; Monocytes % (auto) 5.3 %; Neutrophils # (auto) 8.92 K/uL (1.40-6.50); Neutrophils % (auto) 52.8 %; Smudge Cells Present
--- NOTE | 2024-05-18 10:57 | Nephrology Progress Note ---
Date of Service May 18, 2024 Assessment & Plan (1) Acute kidney injury: (2) Chronic kidney disease, stage IV (severe): (3) Aortic stenosis: (4) Anemia: (5) UTI (urinary tract infection): (6) CHF (congestive heart failure): (7) Hyponatremia: (8) Metabolic acidosis: Plan Ms. Diaz is an 78 year old female with past medical history significant for stage 4 CKD., baseline Cr has been 1.8-2.0 mg/dl, ASCVD, h/o AMI 2010, CHF, paroxysmal atrial fibrillation, AODM, CLL. Admitted to the hospital on 05/02/24 with generalized weakness, CHF, Echo showed EF 30-35%. She was treated with IV diuretic with improvement in volume status and respiratory status. She was noted to have slight changes in kidney function during initial few days of her hospitalization, creatinine up peaked to 2.9 which eventually started to improve and decrease down to 2.2. She had ICD placed considering paroxysmal A-fib and ventricular tachycardia. Was on Entresto which has been on hold. Eliquis was on hold since 05/14/2024 afternoon. However, kidney function again started to worsen over last few days with decreased urine output. Diuretics has been on hold for last 2 days. She also noted to have multiple electrolyte abnormalities including hyponatremia and metabolic acidosis, on sodium bicarbonate. Kidney function rapidly worsen with multiple electrolyte abnormality and decreased urine output and started on dialysis on 06/06 via right IJ tunneled dialysis catheter after holding Eliquis for 2 days. Blood pressure slightly low but otherwise asymptomatic. --Second dialysis treatment today for 3 hours, aim for 1 L UF if tolerated. --accurate intake and output, if urine output improved and electrolyte state stable, will consider holding dialysis and monitor for renal recovery. --left arm nephrology precaution, dose meds eGFR <10 --had JONATHAN 48262 units on 05/17/24 Admission and Anticipated Discharge Date Admission Date: May 02, 2024 Srikanth Oquendo was seen and evaluated this morning during dialysis treatment. She is getting her second dialysis treatment now, overall tolerating well although blood pressure has been relatively low. General dialysis catheter functioning well, no significant pain at the catheter site, no active bleeding. She reports noticing increase in urine output. Appetite and p.o. intake remains somewhat poor. Review of Systems Review of Systems: Detailed review of system was done and pertinent positives and negatives are mentioned above. Physical Exam Constitutional: WD/WN, vitals as above + ill appearing; no acute distress Eyes: + anicteric sclerae Neck: normal visual inspection Respiratory: no respiratory distress Auscultation: + rales (at mainly right base) Cardiovascular: Rate/Rhythm: + irregularly irregular Heart Sounds: normal S1, normal S2 and + murmur Extremities: + vascular access device (rt IJ TDC); no edema Neurologic: no focal motor deficits and not confused Psychiatric: A+Ox3, euthymic affect Results & Data Vital Signs (Past 12 Hours) Vital Signs Temp Pulse Pulse Resp BP BP Pulse Ox 05/18/24 09:33 70 97/62 L 05/18/24 09:27 36.4 C L 66 05/18/24 07:35 36.5 C 119 H 22 121/60 95 05/18/24 04:14 36.4 C L 105 H 20 118/80 90 05/17/24 23:45 36.5 C 103 H 22 104/70 91 O2 Del Method 05/18/24 09:33 05/18/24 09:27 05/18/24 07:35 Room Air 05/18/24 04:14 Room Air 05/17/24 23:45 Room Air PG Care Time/CCT Total # of Minutes Spent Total Time Spent with Patient: Total time spent is greater than 50% in coordination of care (as documented) at patient's floor/unit and/or counseling patient: Coding Level of Care Code 04281 SUB INP/OBS CARE 2/35MIN Diagnoses Acute kidney injury N17.9 Chronic kidney disease, stage IV (severe) N18.4 Aortic stenosis I35.0 Anemia D64.9 UTI (urinary tract infection) N39.0 CHF (congestive heart failure) I50.9 Heart failure chronicity: unspecified Heart failure type: unspecified Hyponatremia E87.1 Metabolic acidosis E87.20 (6) CHF (congestive heart failure) Heart failure chronicity: unspecified Heart failure type: unspecified Qualified Code(s): I50.9 - Heart failure, unspecified
[2024-05-18] MEDS ORDERED: CALCIUM ACETATE 667 MG CAP/TAB PO SCH (12:00)
[2024-05-18] MEDS: CALCIUM CARBONATE 500 MG CHEWABLE TAB PO SCH (13:08)
[2024-05-18] MEDS: cefTRIAXone SODIUM 2,000 MG/50 ML BAG IV SCH (13:10)
[2024-05-18] MEDS: POLYETHYLENE (MIRALAX) 17 GM PACK PO SCH (13:41)
--- NOTE | 2024-05-18 14:26 | Hospitalist Progress Note ---
Date of Service May 18, 2024 Assessment & Plan (1) HFrEF (heart failure with reduced ejection fraction): Plan: Known ejection fraction of 30%. She received parenteral Lasix earlier this admission. She is now on room air. Portable chest x-ray done May 16 reveals mild edema with small bilateral pleural effusions. Entresto has been discontinued due to renal failure to remove the ARB. Appreciate cardiology consultation and recommendations. Echocardiogram reveals severe aortic stenosis, moderate to severe MR, EF 30-35%, regional wall motion abnormalities. Has a known history of CAD and was not a candidate for CABG when evaluated several years ago (2) Chronic kidney disease, stage IV (severe): Plan: With ALLAN in the setting of CKD stage IV. She began hemodialysis on May 17 and had another hemodialysis session today, May 18. BUN and creatinine have improved and her mental status has also improved. Entresto, Lasix, and spironolactone are currently on hold. (3) UTI (urinary tract infection): Plan: Klebsiella and E. coli isolated. Cefepime has been switched to Rocephin. Day 4 of antibiotic therapy (4) Paroxysmal ventricular tachycardia: Plan: Occurred on May 10. She was given intravenous amiodarone and now is on oral amiodarone. ICD was placed on May 12. Surgical site is unremarkable. Appreciate cardiology consultation (5) Aortic stenosis: Plan: Seen on cardiac echo. Needs outpatient evaluation for TAVR which will be arranged by her primary video game programmer. Avoid overdiuresis and low blood pressure (6) PAF (paroxysmal atrial fibrillation): Plan: Was in sinus rhythm earlier this admission but converted to rapid atrial fibrillation on 05/05. Cardiology consultation and recommendations appreciated. Carvedilol has been switched to metoprolol tartrate and eventually hopeful switch to metoprolol succinate once daily dosing. Intravenous amiodarone has been switched to oral dosing. Eliquis has now been restarted. (7) Demand ischemia: Plan: No evidence of acute coronary syndrome. Telemetry. Continue current medical management (8) CAD (coronary artery disease): Plan: Stable. Continue current medical management. Telemetry (9) CLL (chronic lymphocytic leukemia): Plan: Serial labs. Currently quiescent. Iron deficiency noted. She has received parenteral iron replacement Plan She will need placement at the time of discharge. Hopefully Center care within the next day or 2 Admission and Anticipated Discharge Date Admission Date: May 02, 2024 Subjective Alert but somewhat tearful. Her mental status has improved with dialysis though. BUN is down to 96 and creatinine 4.8 this morning. Sodium improved to 129. She underwent another dialysis session this morning, May 19. Klebsiella and E. coli isolated in the urine. Cefepime switched to Rocephin. Day 4 of antibiotic therapy. Calcium carbonate has been started for hyperphosphatemia. She has started on MiraLAX due to constipation and will receive a Fleet enema today, May 19. Eliquis has also been restarted. Review of Systems 2 Review of Systems: Constitutionalno fever or chills ENTno blurred vision, no double vision, no epistaxis, no sore throat Respiratoryno cough, no wheezing. Shortness of breath with exertion Cardiacno palpitations, no chest pain, no syncope Humble nausea, vomiting, diarrhea, melena, hematochezia GUno urinary retention, no urinary incontinence, no dysuria, no hematuria Musculoskeletalno joint pain, no muscle tenderness Skinno bruising, no rashes, no pruritus Neurono isolated weakness, no paresthesia. Mentation however has been affected by azotemia. She is exhibiting symptoms of metabolic encephalopathy Psychflat affect Physical Exam 2 Physical Exam: General-awake with symptoms of metabolic encephalopathy. No fever. HEENT-head atraumatic and normocephalic, pupils equal and reactive to light, extraocular muscles intact Neck-no lymphadenopathy or thyromegaly, trachea midline Chest-faint bibasilar inspiratory rales. No wheezing. No dullness to percussion Cardiac-regular rate and rhythm, normal S1 and S2 Abdomen-normal bowel sounds, no hepatosplenomegaly Extremities-no cyanosis, clubbing, or edema Neuro-cranial nerves II through XII intact, motor and sensory function within normal limits, strength symmetrical with generalized weakness, no focal deficits Psych-flat affect Results & Data Results & Data Vital Signs (Past 12 Hours) Vital Signs Temp Pulse Pulse Resp BP BP Pulse Ox 05/18/24 13:19 94/70 L 05/18/24 12:40 36.6 C 97 H 112/67 05/18/24 12:30 104 H 104/73 05/18/24 12:00 79 92/71 L 05/18/24 11:30 113 H 108/71 05/18/24 11:00 76 128/65 09/05/24 10:30 99 H 106/65 05/18/24 10:00 57 L 99/45 L 05/18/24 09:33 70 97/62 L 05/18/24 09:27 36.4 C L 66 05/18/24 08:11 05/18/24 07:35 36.5 C 119 H 22 121/60 95 05/18/24 06:43 88 05/18/24 04:14 36.4 C L 105 H 20 118/80 90 O2 Del Method 05/18/24 13:19 05/18/24 12:40 05/18/24 12:30 05/18/24 12:00 05/18/24 11:30 05/18/24 11:00 05/18/24 10:30 05/18/24 10:00 05/18/24 09:33 05/18/24 09:27 05/18/24 08:11 Room Air 05/18/24 07:35 Room Air 05/18/24 06:43 05/18/24 04:14 Room Air Laboratory Results 05/18/24 05:45 05/18/24 05:45 PG Care Time/CCT Total # of Minutes Spent Total Time Spent with Patient: Total time spent is greater than 50% in coordination of care (as documented) at patient's floor/unit and/or counseling patient: Coding Level of Care Code 55674 SUB INP/OBS CARE 3/50MIN Diagnoses HFrEF (heart failure with reduced ejection fraction) I50.20 Chronic kidney disease, stage IV (severe) N18.4 UTI (urinary tract infection) N39.0 Paroxysmal ventricular tachycardia I47.29 Aortic stenosis I35.0 PAF (paroxysmal atrial fibrillation) I48.0 Demand ischemia I24.89 CAD (coronary artery disease) I25.10 CLL (chronic lymphocytic leukemia) C91.90
[2024-05-18] MEDS: SOD PHOSPHATE/SOD BIPHOSPHATE ENEMA 132 ML BTL PR STA (16:33)
[2024-05-19 06:09] LABS: Hematocrit (blood only) 29.4 % (37.0-47.0); Hemoglobin 9.9 g/dl (12.0-16.0); Mean Corpuscular Hgb Conc 33.7 g/dL (32.0-36.0); Mean Corpuscular Volume 92.2 fL (80.0-100.0); Nucleated RBC # (auto) 0.24 K/uL (0.00-0.12); Nucleated RBC % (auto) 1.2 %; Platelet Count 283 K/uL (130-400); RDW Coefficient of Variation 15.7 % (11.5-14.5); RDW Standard Deviation 51.7 fL (36.4-46.3); Red Blood Count 3.19 M/uL (4.20-5.40); White Blood Count 19.63 K/ul (4.8-10.8)
[2024-05-19 06:22] LABS: Albumin Level 3.4 gm/dl (3.4-5.0); Calcium 8.4 mg/dl (8.6-10.3); Potassium 4.1 mmol/L (3.5-5.1)
[2024-05-19 06:28] LABS: BUN Creatinine Ratio 16.5 (10-20); Creatinine Clr Calc Pharmacy 13.3 ml/min; Est GFR (African American) 11.9 ml/min; Est GFR (Non-African American) 10.3 ml/min; Phosphorus 5.3 mg/dl (2.5-4.9)
[2024-05-19 06:32] LABS: Basophils # (auto) 0.08 K/uL (0.00-0.20); Basophils % (auto) 0.4 %; Eosinophils # (auto) 0.29 K/uL (0.00-0.50); Eosinophils % (auto) 1.5 %; Immature Granulocytes # (auto) 0.14 K/uL (0.01-0.20); Immature Granulocytes % (auto) 0.7 %; Lymphocytes # (auto) 7.64 K/uL (1.20-3.40); Lymphocytes % (auto) 38.9 %; Monocytes # (auto) 1.41 K/uL (0.11-0.59); Monocytes % (auto) 7.2 %; Neutrophils # (auto) 10.07 K/uL (1.40-6.50); Neutrophils % (auto) 51.3 %; Polychromasia 1+
--- NOTE | 2024-05-19 10:37 | Nephrology Progress Note ---
Date of Service May 19, 2024 Assessment & Plan (1) Acute kidney injury: (2) Chronic kidney disease, stage IV (severe): (3) Aortic stenosis: (4) Anemia: (5) UTI (urinary tract infection): (6) CHF (congestive heart failure): (7) Hyponatremia: (8) Metabolic acidosis: Plan Ms. Diaz is an 78 year old female with past medical history significant for stage 4 CKD., baseline Cr has been 1.8-2.0 mg/dl, ASCVD, h/o AMI 2010, CHF, paroxysmal atrial fibrillation, AODM, CLL. Admitted to the hospital on 05/02/24 with generalized weakness, CHF, Echo showed EF 30-35%. She was treated with IV diuretic with improvement in volume status and respiratory status. She was noted to have slight changes in kidney function during initial few days of her hospitalization, creatinine up peaked to 2.9 which eventually started to improve and decrease down to 2.2. She had ICD placed considering paroxysmal A-fib and ventricular tachycardia. Was on Entresto which has been on hold. Eliquis was on hold since 05/14/2024 afternoon. However, kidney function again started to worsen over last few days with decreased urine output. Diuretics has been on hold for last 2 days. She also noted to have multiple electrolyte abnormalities including hyponatremia and metabolic acidosis, on sodium bicarbonate. Kidney function rapidly worsen with multiple electrolyte abnormality and decreased urine output and started on dialysis on 06/06 via right IJ tunneled dialysis catheter after holding Eliquis for 2 days. Blood pressure slightly low but otherwise asymptomatic. Had dialysis Wednesday and Wednesday. Currently electrolyte acceptable. Remain oliguric but no sign of volume overload. --Continue to monitor for any recovery of renal function, monitor intake and output, electrolyte, if needed will plan for dialysis tomorrow -- Encouraged increase p.o. intake accurate intake and output, if urine output improved and electrolyte state stable, will consider holding dialysis and monitor for renal recovery. --left arm nephrology precaution, dose meds eGFR <10 --had JONATHAN 17818 units on 05/17/24 Admission and Anticipated Discharge Date Admission Date: May 02, 2024 Srikanth Oquendo was seen and evaluated this morning. Overall she reports feeling tired, blood pressure has been staying low. Had 2 dialysis [id number] on Wednesday and Wednesday, tolerated well, had 1 L UF yesterday. She remained oliguric but clinically no volume overload. Electrolyte acceptable. Review of Systems Review of Systems: Detailed review of system was done and pertinent positives and negatives are mentioned above. Physical Exam Constitutional: WD/WN, vitals as above + ill appearing; no acute distress Eyes: + anicteric sclerae Neck: normal visual inspection Respiratory: no respiratory distress Auscultation: + rales (at mainly right base) Cardiovascular: Rate/Rhythm: + irregularly irregular Heart Sounds: normal S1, normal S2 and + murmur Extremities: + vascular access device (rt IJ TDC); no edema Neurologic: no focal motor deficits and not confused Psychiatric: A+Ox3, euthymic affect Results & Data Vital Signs (Past 12 Hours) Vital Signs Temp Pulse Pulse Resp BP BP Pulse Ox 05/19/24 09:26 106 H 05/19/24 09:26 05/19/24 07:39 118 H 20 93/68 L 93 05/19/24 03:40 36.5 C 104 H 18 100/68 95 05/18/24 23:44 36.6 C 104 H 18 95/57 L 96 O2 Del Method 05/19/24 09:26 05/19/24 09:26 Room Air 05/19/24 07:39 Room Air 05/19/24 03:40 Room Air 05/18/24 23:44 Room Air PG Care Time/CCT Total # of Minutes Spent Total Time Spent with Patient: Total time spent is greater than 50% in coordination of care (as documented) at patient's floor/unit and/or counseling patient: Coding Level of Care Code 77036 SUB INP/OBS CARE 2/35MIN Diagnoses Acute kidney injury N17.9 Chronic kidney disease, stage IV (severe) N18.4 Aortic stenosis I35.0 Anemia D64.9 UTI (urinary tract infection) N39.0 CHF (congestive heart failure) I50.9 Heart failure chronicity: unspecified Heart failure type: unspecified Hyponatremia E87.1 Metabolic acidosis E87.20 (6) CHF (congestive heart failure) Heart failure chronicity: unspecified Heart failure type: unspecified Qualified Code(s): I50.9 - Heart failure, unspecified
--- NOTE | 2024-05-19 11:55 | Hospitalist Progress Note ---
Date of Service May 19, 2024 Assessment & Plan (1) HFrEF (heart failure with reduced ejection fraction): Plan: Known ejection fraction of 30%. She received parenteral Lasix earlier this admission. She is now on room air. Portable chest x-ray done May 16 revealed mild edema with small bilateral pleural effusions. Entresto has been discontinued due to renal failure to remove the ARB. Appreciate cardiology consultation and recommendations. Echocardiogram reveals severe aortic stenosis, moderate to severe MR, EF 30-35%, regional wall motion abnormalities. Has a known history of CAD and was not a candidate for CABG when evaluated several years ago (2) Chronic kidney disease, stage IV (severe): Plan: With ALLAN in the setting of CKD stage IV. She began hemodialysis on May 17 and had another hemodialysis session on May 18. BUN and creatinine have improved and her mental status has also improved. Entresto, Lasix, and spironolactone are currently on hold. She will have another hemodialysis session tomorrow, May 20 (3) UTI (urinary tract infection): Plan: Klebsiella and E. coli isolated. Cefepime has been switched to Rocephin. Day 5 of antibiotic therapy (4) Paroxysmal ventricular tachycardia: Plan: Occurred on May 10. She was given intravenous amiodarone and now is on oral amiodarone. ICD was placed on May 12. Surgical site is unremarkable. Appreciate cardiology consultation (5) Aortic stenosis: Plan: Seen on cardiac echo. Needs outpatient evaluation for TAVR which will be arranged by her primary hydrographic engineer. Avoid overdiuresis and low blood pressure (6) PAF (paroxysmal atrial fibrillation): Plan: Was in sinus rhythm earlier this admission but converted to rapid atrial fibrillation on 05/05. Cardiology consultation and recommendations appreciated. Carvedilol has been switched to metoprolol tartrate and eventually hopeful switch to metoprolol succinate once daily dosing. Intravenous amiodarone has been switched to oral dosing. Eliquis has now been restarted. (7) Demand ischemia: Plan: No evidence of acute coronary syndrome. Telemetry. Continue current medical management (8) CAD (coronary artery disease): Plan: Stable. Continue current medical management. Telemetry (9) CLL (chronic lymphocytic leukemia): Plan: Serial labs. Currently quiescent. Iron deficiency noted. She has received parenteral iron replacement Plan She will need placement at the time of discharge. Hopefully Center care early next week Admission and Anticipated Discharge Date Admission Date: May 02, 2024 Subjective Alert and oriented. No new problems. Repeat hemodialysis session delayed until tomorrow, May 20, due to borderline blood pressure. BUN has improved down to 64 and creatinine improved down to 3.9. I spoke to her daughter, Lita, by phone today and brought her up-to-date. Klebsiella and E. coli isolated in the urine, sensitive to Rocephin day 5 of antibiotic therapy. Review of Systems 2 Review of Systems: Constitutionalno fever or chills ENTno blurred vision, no double vision, no epistaxis, no sore throat Respiratoryno cough, no wheezing. Shortness of breath with exertion Cardiacno palpitations, no chest pain, no syncope Humble nausea, vomiting, diarrhea, melena, hematochezia GUno urinary retention, no urinary incontinence, no dysuria, no hematuria Musculoskeletalno joint pain, no muscle tenderness Skinno bruising, no rashes, no pruritus Neurono isolated weakness, no paresthesia. Mentation however has been affected by azotemia. She is exhibiting symptoms of metabolic encephalopathy Psychflat affect Physical Exam 2 Physical Exam: General-awake with symptoms of metabolic encephalopathy. No fever. HEENT-head atraumatic and normocephalic, pupils equal and reactive to light, extraocular muscles intact Neck-no lymphadenopathy or thyromegaly, trachea midline Chest-faint bibasilar inspiratory rales. No wheezing. No dullness to percussion Cardiac-regular rate and rhythm, normal S1 and S2 Abdomen-normal bowel sounds, no hepatosplenomegaly Extremities-no cyanosis, clubbing, or edema Neuro-cranial nerves II through XII intact, motor and sensory function within normal limits, strength symmetrical with generalized weakness, no focal deficits Psych-flat affect Results & Data Results & Data Vital Signs (Past 12 Hours) Vital Signs Temp Pulse Pulse Resp BP BP Pulse Ox 05/19/24 10:49 36.7 C 112 H 20 100/76 94 05/19/24 09:26 106 H 05/19/24 09:26 05/19/24 07:39 118 H 20 93/68 L 93 05/19/24 03:40 36.5 C 104 H 18 100/68 95 O2 Del Method 05/19/24 10:49 Room Air 05/19/24 09:26 05/19/24 09:26 Room Air 05/19/24 07:39 Room Air 05/19/24 03:40 Room Air Laboratory Results 05/19/24 05:43 05/19/24 05:43 PG Care Time/CCT Total # of Minutes Spent Total Time Spent with Patient: Total time spent is greater than 50% in coordination of care (as documented) at patient's floor/unit and/or counseling patient: Coding Level of Care Code 45425 SUB INP/OBS CARE 2/35MIN Diagnoses HFrEF (heart failure with reduced ejection fraction) I50.20 Chronic kidney disease, stage IV (severe) N18.4 UTI (urinary tract infection) N39.0 Paroxysmal ventricular tachycardia I47.29 Aortic stenosis I35.0 PAF (paroxysmal atrial fibrillation) I48.0 Demand ischemia I24.89 CAD (coronary artery disease) I25.10 CLL (chronic lymphocytic leukemia) C91.90
--- NOTE | 2024-05-19 18:09 | Cardiology Progress Note ---
Date of Service May 19, 2024 Assessment & Plan (1) HFrEF (heart failure with reduced ejection fraction): Plan: Outpatient regimen included carvedilol, Entresto and spironolactone. Entresto currently being held due to renal dysfunction. If she stays on dialysis we may have an opportunity to reintroduce some medications. Blood pressure continues to be low. She seems to have an element of volume overload although not overtly symptomatic. Volume now being controlled with dialysis as she seems to have had little urine output. (2) Aortic stenosis: Plan: This is newly discovered during this admission. Severity and question due to possible low output heart failure. This can be evaluated further in the outpatient setting (3) PAF (paroxysmal atrial fibrillation): Plan: She continues to have some elevated heart rates. I think we will try a slightly higher dose of metoprolol as her blood pressure allows. Continue amiodarone as well. Perhaps as her volume status stabilizes we will see some improvement in heart rate as well. (4) CAD (coronary artery disease): Plan: -Quiescent on medical management. -Deemed inoperable when [facility], June 2019. (5) Ischemic cardiomyopathy: Plan: Some medications being held due to renal dysfunction. (6) Paroxysmal ventricular tachycardia: Plan: she continues to have some nonsustained ventricular tachycardia at times. She appears to have undergone successful ICD placement without evident complication. Will continue her beta-earl and amiodarone. Admission and Anticipated Discharge Date Admission Date: May 02, 2024 Subjective This email patient claimed to be feeling well. She denies significant breathing trouble. No sense of palpitation. No chest pain. Frustrated by the inability to ambulate more be more active. Review of Systems Review of Systems: Per HPI Physical Exam Physical Exam: Gen.: No acute distress. Alert. Oriented. She answers questions appropriately. She follows commands. HEENT: Anicteric sclera. Cardiac: Irregularly irregular. Normal S1-S2. 2/6 mid-to-late peaking systolic ejection murmur. Pulmonary: Reduced breath sounds at the bases bilaterally. No expiratory wheezing. Normal respiratory effort. Chest: Device implant site with only mild ecchymosis. No hematoma. No erythema. No drainage. Nontender to palpation. Extremities: No edema or cyanosis. ENMT: Mallampati Class: III Respiratory: normal respiratory effort Cardiovascular: Rate/Rhythm: + tachycardic and + irregularly irregular Results & Data Vital Signs (Past 12 Hours) Vital Signs Temp Pulse Pulse Resp BP BP Pulse Ox 05/19/24 15:34 109 H 05/19/24 15:19 36.6 C 111 H 18 104/82 93 05/19/24 10:49 36.7 C 112 H 20 100/76 94 05/19/24 09:26 106 H 05/19/24 09:26 05/19/24 07:39 118 H 20 93/68 L 93 O2 Del Method 05/19/24 15:34 05/19/24 15:19 Room Air 05/19/24 10:49 Room Air 05/19/24 09:26 05/19/24 09:26 Room Air 05/19/24 07:39 Room Air Laboratory Results Abnormal Lab Results 05/19/24 05:43 WBC 19.63 H RBC 3.19 L Hgb 9.9 L Hct 29.4 L MCV 92.2 MCH 31.0 MCHC 33.7 RDW Std Deviation 51.7 H RDW Coeff of Nino 15.7 H Plt Count 283 MPV 10.0 Immature Gran % (Auto) 0.7 Neut % (Auto) 51.3 Lymph % (Auto) 38.9 Gaines % (Auto) 7.2 Eos % (Auto) 1.5 Baso % (Auto) 0.4 Neut # (Auto) 10.07 H Lymph # (Auto) 7.64 H Gaines # (Auto) 1.41 H Eos # (Auto) 0.29 Baso # (Auto) 0.08 Immature Gran # (Auto) 0.14 Absolute Nucleated RBC 0.24 H Nucleated RBC % (auto) 1.2 Polychromasia 1+ Sodium 132 L Potassium 4.1 Chloride 93 L Carbon Dioxide 25 Anion Gap 14 H BUN 64 H D Creatinine 3.89 H D Est Cr Clr Drug Dosing 13.3 Est GFR ( Amer) 11.9 Est GFR (Non-Af Amer) 10.3 BUN/Creatinine Ratio 16.5 Glucose 139 H Calcium 8.4 L Phosphorus 5.3 H Albumin 3.4 PG Care Time/CCT Total # of Minutes Spent Total Time Spent with Patient: Total time spent is greater than 50% in coordination of care (as documented) at patient's floor/unit and/or counseling patient: Coding Level of Care Code 55067 SUB INP/OBS CARE MIN Diagnoses HFrEF (heart failure with reduced ejection fraction) I50.20 Aortic stenosis I35.0 PAF (paroxysmal atrial fibrillation) I48.0 CAD (coronary artery disease) I25.10 Ischemic cardiomyopathy I25.5 Paroxysmal ventricular tachycardia I47.29
[2024-05-19 20:56] LABS: Complement C3 99 mg/dL (83-193); Complement Total(CH50) 60 U/mL (31-60)
[2024-05-20 07:35] LABS: Albumin Level 3.4 gm/dl (3.4-5.0); BUN Creatinine Ratio 16.6 (10-20); Calcium 8.4 mg/dl (8.6-10.3); Creatinine Clr Calc Pharmacy 11.4 ml/min; Est GFR (African American) 9.8 ml/min; Est GFR (Non-African American) 8.5 ml/min; Phosphorus 5.8 mg/dl (2.5-4.9); Potassium 4.2 mmol/L (3.5-5.1)
--- NOTE | 2024-05-20 11:06 | Hospitalist Progress Note ---
Date of Service May 20, 2024 Assessment & Plan (1) HFrEF (heart failure with reduced ejection fraction): Plan: Known ejection fraction of 30%. She received parenteral Lasix earlier this admission. She is now on room air. Portable chest x-ray done May 16 revealed mild edema with small bilateral pleural effusions. Entresto has been discontinued due to renal failure to remove the ARB. Appreciate cardiology consultation and recommendations. Echocardiogram reveals severe aortic stenosis, moderate to severe MR, EF 30-35%, regional wall motion abnormalities. Has a known history of CAD and was not a candidate for CABG when evaluated several years ago (2) Chronic kidney disease, stage IV (severe): Plan: With ALLAN in the setting of CKD stage IV. She began hemodialysis on May 17 and had another hemodialysis session on May 18. BUN and creatinine have improved and her mental status has also improved. Entresto has been discontinued. Lasix, and spironolactone are currently on hold. Undergoing dialysis again today, May 20 (3) UTI (urinary tract infection): Plan: Klebsiella and E. coli isolated. Cefepime has been switched to Rocephin. Day 6 of antibiotic therapy (4) Paroxysmal ventricular tachycardia: Plan: Occurred on May 10. She was given intravenous amiodarone and now is on oral amiodarone. ICD was placed on May 12. Surgical site is unremarkable. Appreciate cardiology consultation. Amiodarone uptitrated today, May 20, due to recurrent runs of nonsustained V. tach. (5) Aortic stenosis: Plan: Seen on cardiac echo. Needs outpatient evaluation for TAVR which will be arranged by her primary aerographer. Avoid overdiuresis and low blood pressure (6) PAF (paroxysmal atrial fibrillation): Plan: Was in sinus rhythm earlier this admission but converted to rapid atrial fibrillation on 05/05. Cardiology consultation and recommendations appreciated. Carvedilol has been switched to metoprolol tartrate and eventually hopeful switch to metoprolol succinate once daily dosing. Intravenous amiodarone has been switched to oral dosing. Eliquis has now been restarted. (7) Demand ischemia: Plan: No evidence of acute coronary syndrome. Telemetry. Continue current medical management (8) CAD (coronary artery disease): Plan: Stable. Continue current medical management. Telemetry (9) CLL (chronic lymphocytic leukemia): Plan: Serial labs. Currently quiescent. Iron deficiency noted. She has received parenteral iron replacement Plan She will need placement at the time of discharge. Hopefully Center care early next week Admission and Anticipated Discharge Date Admission Date: May 02, 2024 Subjective The patient was seen while in dialysis today, May 20. She is alert and oriented. Unfortunately, she is having recurrent runs of nonsustained V. tach. Cardiology has been notified. Amiodarone increased to twice daily dosing. Fortunately she is asymptomatic. She is on day 6 of antibiotic therapy for urinary tract infection. Klebsiella and E. coli isolated. Currently on antibiotic day 6. She will complete her antibiotic course this admission. BUN and creatinine have increased to 76 and 4.5 respectively today, May 20, but will come down again with dialysis. She has a tunneled dialysis catheter in the right anterior upper chest wall. Eliquis was restarted on May 18, AICD was implanted May 12, Entresto has been discontinued. Review of Systems 2 Review of Systems: Constitutionalno fever or chills ENTno blurred vision, no double vision, no epistaxis, no sore throat Respiratoryno cough, no wheezing. Shortness of breath with exertion Cardiacno palpitations, no chest pain, no syncope Humble nausea, vomiting, diarrhea, melena, hematochezia GUno urinary retention, no urinary incontinence, no dysuria, no hematuria Musculoskeletalno joint pain, no muscle tenderness Skinno bruising, no rashes, no pruritus Neurono isolated weakness, no paresthesia. Mentation however has been affected by azotemia. She is exhibiting symptoms of metabolic encephalopathy Psychflat affect Physical Exam 2 Physical Exam: General-awake with symptoms of metabolic encephalopathy. No fever. HEENT-head atraumatic and normocephalic, pupils equal and reactive to light, extraocular muscles intact Neck-no lymphadenopathy or thyromegaly, trachea midline Chest-faint bibasilar inspiratory rales. No wheezing. No dullness to percussion Cardiac-regular rate and rhythm, normal S1 and S2 Abdomen-normal bowel sounds, no hepatosplenomegaly Extremities-no cyanosis, clubbing, or edema Neuro-cranial nerves II through XII intact, motor and sensory function within normal limits, strength symmetrical with generalized weakness, no focal deficits Psych-flat affect Results & Data Results & Data Vital Signs (Past 12 Hours) Vital Signs Temp Pulse Pulse Pulse Resp BP BP 05/20/24 10:00 114 H 81/60 L 05/20/24 09:30 73 88/65 L 05/20/24 09:10 36.6 C 55 L 05/20/24 09:01 109 H 91/73 L 05/20/24 09:00 05/20/24 07:42 36.8 C 102 H 18 106/87 05/20/24 07:24 123 H 05/20/24 02:01 36.5 C 104 H 18 106/76 Pulse Ox O2 Del Method 05/20/24 10:00 05/20/24 09:30 05/20/24 09:10 05/20/24 09:01 05/20/24 09:00 Room Air 05/20/24 07:42 97 Room Air 05/20/24 07:24 05/20/24 02:01 92 Room Air Laboratory Results 05/19/24 05:43 05/20/24 06:28 PG Care Time/CCT Total # of Minutes Spent Total Time Spent with Patient: Total time spent is greater than 50% in coordination of care (as documented) at patient's floor/unit and/or counseling patient: Coding Level of Care Code 65004 SUB INP/OBS CARE 3/50MIN Diagnoses HFrEF (heart failure with reduced ejection fraction) I50.20 Chronic kidney disease, stage IV (severe) N18.4 UTI (urinary tract infection) N39.0 Paroxysmal ventricular tachycardia I47.29 Aortic stenosis I35.0 PAF (paroxysmal atrial fibrillation) I48.0 Demand ischemia I24.89 CAD (coronary artery disease) I25.10 CLL (chronic lymphocytic leukemia) C91.90
--- NOTE | 2024-05-20 12:23 | Nephrology Progress Note ---
Date of Service May 20, 2024 Assessment & Plan (1) Acute kidney injury: (2) Chronic kidney disease, stage IV (severe): (3) Aortic stenosis: (4) Anemia: (5) UTI (urinary tract infection): (6) CHF (congestive heart failure): (7) Hyponatremia: (8) Metabolic acidosis: Plan Ms. Diaz is an 78 year old female with past medical history significant for stage 4 CKD., baseline Cr has been 1.8-2.0 mg/dl, ASCVD, h/o AMI 2010, CHF, paroxysmal atrial fibrillation, AODM, CLL. Admitted to the hospital on 05/02/24 with generalized weakness, CHF, Echo showed EF 30-35%. She was treated with IV diuretic with improvement in volume status and respiratory status. She was noted to have slight changes in kidney function during initial few days of her hospitalization, creatinine up peaked to 2.9 which eventually started to improve and decrease down to 2.2. She had ICD placed considering paroxysmal A-fib and ventricular tachycardia. Was on Entresto which has been on hold. However, kidney function again started to worsen with multiple electrolyte abnormality and decreased urine output. Started on dialysis on 06/06 via right IJ tunneled dialysis catheter. Completed a course of Venofer, had JONATHAN 12042 units on 05/17/24. Blood pressure slightly low but otherwise asymptomatic. Although reports slight improvement in urine output but no sign of renal recovery yet, BUN and creatinine continues to rise sharply of dialysis. Hemoglobin improved to 9.9 --Dialysis today, minimum UF as tolerated, continue to monitor for any recovery of renal function, monitor intake and output, electrolyte. --Encouraged increase p.o. intake accurate intake and output, if urine output improved and electrolyte state stable, will consider holding dialysis and monitor for renal recovery. --left arm nephrology precaution, dose meds eGFR <10 --Epogen 68439 units with next HD Admission and Anticipated Discharge Date Admission Date: May 02, 2024 Srikanth Oquendo was seen and examined during dialysis this morning. Was tolerating dialysis low blood pressure was slightly low and UF rate was decreased. She reports some improvement in urine output. But creatinine continues to rise off dialysis. Electrolyte acceptable. Review of Systems Review of Systems: Detailed review of system was done and pertinent positives and negatives are mentioned above. Physical Exam Constitutional: WD/WN, vitals as above + ill appearing; no acute distress Eyes: + anicteric sclerae Neck: normal visual inspection Respiratory: no respiratory distress Cardiovascular: Rate/Rhythm: + irregularly irregular Heart Sounds: normal S1, normal S2 and + murmur Extremities: + vascular access device (rt IJ TDC); no edema Neurologic: no focal motor deficits Psychiatric: A+Ox3, euthymic affect Results & Data Vital Signs (Past 12 Hours) Vital Signs Temp Pulse Pulse Pulse Resp BP BP 05/20/24 10:00 114 H 81/60 L 05/20/24 09:30 73 88/65 L 05/20/24 09:10 36.6 C 55 L 05/20/24 09:01 109 H 91/73 L 05/20/24 09:00 05/20/24 07:42 36.8 C 102 H 18 106/87 05/20/24 07:24 123 H 05/20/24 02:01 36.5 C 104 H 18 106/76 Pulse Ox O2 Del Method 05/20/24 10:00 05/20/24 09:30 05/20/24 09:10 05/20/24 09:01 05/20/24 09:00 Room Air 05/20/24 07:42 97 Room Air 05/20/24 07:24 05/20/24 02:01 92 Room Air PG Care Time/CCT Total # of Minutes Spent Total Time Spent with Patient: Total time spent is greater than 50% in coordination of care (as documented) at patient's floor/unit and/or counseling patient: Coding Level of Care Code 84817 SUB INP/OBS CARE 2/35MIN Diagnoses Acute kidney injury N17.9 Chronic kidney disease, stage IV (severe) N18.4 Aortic stenosis I35.0 Anemia D64.9 UTI (urinary tract infection) N39.0 CHF (congestive heart failure) I50.9 Heart failure chronicity: unspecified Heart failure type: unspecified Hyponatremia E87.1 Metabolic acidosis E87.20 (6) CHF (congestive heart failure) Heart failure chronicity: unspecified Heart failure type: unspecified Qualified Code(s): I50.9 - Heart failure, unspecified
[2024-05-20] MEDS ORDERED: Nursing to Pharmacy Communication SCH (13:15)
[2024-05-20] MEDS: AMIODARONE 200 MG TAB PO SCH (20:25)
[2024-05-21 07:40] LABS: Hematocrit (blood only) 27.4 % (37.0-47.0); Hemoglobin 9.2 g/dl (12.0-16.0); Mean Corpuscular Hemoglobin 31.6 pg (25.0-34.0); Mean Corpuscular Hgb Conc 33.6 g/dL (32.0-36.0); Mean Corpuscular Volume 94.2 fL (80.0-100.0); Nucleated RBC # (auto) 0.34 K/uL (0.00-0.12); Nucleated RBC % (auto) 1.7 %; Platelet Count 239 K/uL (130-400); RDW Coefficient of Variation 16.5 % (11.5-14.5); RDW Standard Deviation 55.3 fL (36.4-46.3); Red Blood Count 2.91 M/uL (4.20-5.40); White Blood Count 20.23 K/ul (4.8-10.8)
[2024-05-21 07:52] LABS: Calcium 8.1 mg/dl (8.6-10.3); Potassium 3.9 mmol/L (3.5-5.1)
[2024-05-21 08:01] LABS: BUN Creatinine Ratio 13.2 (10-20); Creatinine Clr Calc Pharmacy 15.9 ml/min; Est GFR (African American) 14.8 ml/min; Est GFR (Non-African American) 12.8 ml/min; Phosphorus 4.4 mg/dl (2.5-4.9)
[2024-05-21 08:26] LABS: Basophils # (auto) 0.08 K/uL (0.00-0.20); Basophils % (auto) 0.4 %; Eosinophils # (auto) 0.35 K/uL (0.00-0.50); Eosinophils % (auto) 1.7 %; Immature Granulocytes # (auto) 0.15 K/uL (0.01-0.20); Immature Granulocytes % (auto) 0.7 %; Lymphocytes # (auto) 8.63 K/uL (1.20-3.40); Lymphocytes % (auto) 42.7 %; Monocytes # (auto) 1.11 K/uL (0.11-0.59); Monocytes % (auto) 5.5 %; Neutrophils # (auto) 9.91 K/uL (1.40-6.50); Polychromasia 1+; Smudge Cells Present
--- NOTE | 2024-05-21 11:10 | Nephrology Progress Note ---
Date of Service May 21, 2024 Assessment & Plan (1) Acute kidney injury: (2) Chronic kidney disease, stage IV (severe): (3) Aortic stenosis: (4) Anemia: (5) UTI (urinary tract infection): (6) CHF (congestive heart failure): (7) Hyponatremia: (8) Metabolic acidosis: Plan Ms. Diaz is an 78 year old female with past medical history significant for stage 4 CKD., baseline Cr has been 1.8-2.0 mg/dl, ASCVD, h/o AMI 2010, CHF, paroxysmal atrial fibrillation, AODM, CLL. Admitted to the hospital on 05/02/24 with generalized weakness, CHF, Echo showed EF 30-35%. She was treated with IV diuretic with improvement in volume status and respiratory status. She was noted to have slight changes in kidney function during initial few days of her hospitalization, creatinine up peaked to 2.9 which eventually started to improve and decrease down to 2.2. She had ICD placed considering paroxysmal A-fib and ventricular tachycardia. Was on Entresto which has been on hold. However, kidney function again started to worsen with multiple electrolyte abnormality and decreased urine output. Started on dialysis on 06/06 via right IJ tunneled dialysis catheter. Completed a course of Venofer, had JONATHAN 52980 units on 05/17/24. Blood pressure Continues to be low but otherwise asymptomatic. Although urine output unmeasured, she reports increase urine output and clinically she does not have any sign of volume overload. --continue to monitor for any recovery of renal function, monitor intake and output, electrolyte. Will check lab tomorrow morning off of dialysis today and if creatinine stays stable with acceptable electrolyte, will consider holding dialysis. --Encouraged increase p.o. intake accurate intake and output. --left arm nephrology precaution, dose meds eGFR <10 Admission and Anticipated Discharge Date Admission Date: May 02, 2024 Srikanth Oquendo was seen and examined during this morning. She was getting physical th erapy, able to participate more slowly. Intake and output unmeasured but she reports increase frequency of urination. Had dialysis yesterday but did not have much UF as blood pressure is low and she did not really have significant sign of volume overload. Oral intake remains poor mainly because of hospital food. Review of Systems Review of Systems: Detailed review of system was done and pertinent positives and negatives are mentioned above. Physical Exam Constitutional: WD/WN, vitals as above + ill appearing; no acute distress Eyes: + anicteric sclerae Neck: normal visual inspection Respiratory: no respiratory distress Auscultation: + rales (at mainly right base) Cardiovascular: Rate/Rhythm: + irregularly irregular Heart Sounds: normal S1, normal S2 and + murmur Extremities: + vascular access device (rt IJ TDC); no edema Neurologic: no focal motor deficits Psychiatric: A+Ox3, euthymic affect Results & Data Vital Signs (Past 12 Hours) Vital Signs Temp Pulse Pulse Pulse Resp BP BP 05/21/24 08:56 62 97/60 L 05/21/24 07:21 36.4 C L 60 16 107/63 05/21/24 07:07 60 Pulse Ox O2 Del Method 05/21/24 08:56 05/21/24 07:21 92 Room Air 05/21/24 07:07 PG Care Time/CCT Total # of Minutes Spent Total Time Spent with Patient: Total time spent is greater than 50% in coordination of care (as documented) at patient's floor/unit and/or counseling patient: Coding Level of Care Code 94389 SUB INP/OBS CARE 2/35MIN Diagnoses Acute kidney injury N17.9 Chronic kidney disease, stage IV (severe) N18.4 Aortic stenosis I35.0 Anemia D64.9 UTI (urinary tract infection) N39.0 CHF (congestive heart failure) I50.9 Heart failure chronicity: unspecified Heart failure type: unspecified Hyponatremia E87.1 Metabolic acidosis E87.20 (6) CHF (congestive heart failure) Heart failure chronicity: unspecified Heart failure type: unspecified Qualified Code(s): I50.9 - Heart failure, unspecified
--- NOTE | 2024-05-21 14:10 | Hospitalist Progress Note ---
Date of Service May 21, 2024 Assessment & Plan (1) HFrEF (heart failure with reduced ejection fraction): Plan: Known ejection fraction of 30%. She received parenteral Lasix earlier this admission. CHF now resolved and she is on room air. Entresto has been discontinued due to renal failure to remove the ARB. Appreciate cardiology consultation and recommendations. Echocardiogram reveals severe aortic stenosis, moderate to severe MR, EF 30-35%, regional wall motion abnormalities. Has a known history of CAD and was not a candidate for CABG when evaluated several years ago (2) Chronic kidney disease, stage IV (severe): Plan: With ALLAN in the setting of CKD stage IV. She began hemodialysis on May 17 and had another hemodialysis session on May 18. BUN and creatinine have improved and her mental status has also improved. Entresto has been discontinued. Lasix, and spironolactone are currently on hold. She has undergone dialysis May 17, May 18, and May 20. Appreciate nephrology consultation and recommendations. (3) UTI (urinary tract infection): Plan: Klebsiella and E. coli isolated. Cefepime has been switched to Rocephin. Day 7 of antibiotic therapy. Rocephin will be discontinued after today's dose, May 21 (4) Paroxysmal ventricular tachycardia: Plan: Occurred on May 10. She was given intravenous amiodarone and now is on oral amiodarone. ICD was placed on May 12. Surgical site is unremarkable. Appreciate cardiology consultation. Amiodarone uptitrated on May 20 due to recurrent runs of nonsustained V. tach. (5) Aortic stenosis: Plan: Seen on cardiac echo. Needs outpatient evaluation for TAVR which will be arranged by her primary coal mill operator. Avoid overdiuresis and low blood pressure (6) PAF (paroxysmal atrial fibrillation): Plan: Was in sinus rhythm earlier this admission but converted to rapid atrial fibrillation on 05/05. Cardiology consultation and recommendations appreciated. Carvedilol has been switched to metoprolol tartrate and eventually hopeful switch to metoprolol succinate once daily dosing. Intravenous amiodarone has been switched to oral dosing. Eliquis has now been restarted. (7) Demand ischemia: Plan: No evidence of acute coronary syndrome. Telemetry. Continue current medical management (8) CAD (coronary artery disease): Plan: Stable. Continue current medical management. Telemetry (9) CLL (chronic lymphocytic leukemia): Plan: Serial labs. Currently quiescent. Iron deficiency noted. She has received parenteral iron replacement Plan She will need placement at the time of discharge. Hopefully Center care early this coming week Admission and Anticipated Discharge Date Admission Date: May 02, 2024 Subjective Alert and oriented. No new problems. Her son is at the bedside. Nephrology entry noted. Phosphorus is now down to 4.4. Rocephin will be discontinued after today's dose for treatment of the KlebsiellaE. coli UTI. Day 7 of antibiotic therapy today, May 21. Review of Systems 2 Review of Systems: Constitutionalno fever or chills. Metabolic encephalopathy has resolved with dialysis ENTno blurred vision, no double vision, no epistaxis, no sore throat Respiratoryno cough, no wheezing. Shortness of breath with exertion Cardiacno palpitations, no chest pain, no syncope Humble nausea, vomiting, diarrhea, melena, hematochezia GUno urinary retention, no urinary incontinence, no dysuria, no hematuria Musculoskeletalno joint pain, no muscle tenderness Skinno bruising, no rashes, no pruritus Neurono isolated weakness, no paresthesia. Mentation is back to baseline Psychflat affect Physical Exam 2 Physical Exam: General-alert and oriented x3, no fever, no chills HEENT-head atraumatic and normocephalic, pupils equal and reactive to light, extraocular muscles intact Neck-no lymphadenopathy or thyromegaly, trachea midline Chest-clear to auscultation. No rales, wheezing or rhonchi Cardiac-regular rate and rhythm, normal S1 and S2 Abdomen-normal bowel sounds, no hepatosplenomegaly Extremities-no cyanosis, clubbing, or edema Neuro-cranial nerves II through XII intact, motor and sensory function within normal limits, strength symmetrical, no focal deficits Psych-normal affect, normal mood Results & Data Results & Data Vital Signs (Past 12 Hours) Vital Signs Temp Pulse Pulse Pulse Resp BP BP 05/21/24 13:55 65 106/56 L 05/21/24 11:11 36.6 C 60 18 112/51 L 05/21/24 08:56 62 97/60 L 05/21/24 07:21 36.4 C L 60 16 107/63 05/21/24 07:07 60 Pulse Ox O2 Del Method 05/21/24 13:55 05/21/24 11:11 93 Room Air 05/21/24 08:56 05/21/24 07:21 92 Room Air 05/21/24 07:07 Laboratory Results 05/21/24 06:52 05/21/24 06:52 PG Care Time/CCT Total # of Minutes Spent Total Time Spent with Patient: Total time spent is greater than 50% in coordination of care (as documented) at patient's floor/unit and/or counseling patient: Coding Level of Care Code 29005 SUB INP/OBS CARE 3/50MIN Diagnoses HFrEF (heart failure with reduced ejection fraction) I50.20 Chronic kidney disease, stage IV (severe) N18.4 UTI (urinary tract infection) N39.0 Paroxysmal ventricular tachycardia I47.29 Aortic stenosis I35.0 PAF (paroxysmal atrial fibrillation) I48.0 Demand ischemia I24.89 CAD (coronary artery disease) I25.10 CLL (chronic lymphocytic leukemia) C91.90
[2024-05-22 06:46] LABS: Hematocrit (blood only) 30.8 % (37.0-47.0); Hemoglobin 9.8 g/dl (12.0-16.0); Mean Corpuscular Hemoglobin 30.8 pg (25.0-34.0); Mean Corpuscular Hgb Conc 31.8 g/dL (32.0-36.0); Mean Corpuscular Volume 96.9 fL (80.0-100.0); Mean Platelet Volume 9.9 fL (9.4-12.4); Nucleated RBC # (auto) 0.16 K/uL (0.00-0.12); Nucleated RBC % (auto) 0.9 %; Platelet Count 224 K/uL (130-400); RDW Coefficient of Variation 16.8 % (11.5-14.5); RDW Standard Deviation 57.1 fL (36.4-46.3); Red Blood Count 3.18 M/uL (4.20-5.40); White Blood Count 17.25 K/ul (4.8-10.8)
[2024-05-22 07:05] LABS: BUN Creatinine Ratio 12.3 (10-20); Calcium 8.3 mg/dl (8.6-10.3); Creatinine Clr Calc Pharmacy 12.6 ml/min; Est GFR (African American) 11.1 ml/min; Est GFR (Non-African American) 9.6 ml/min; Phosphorus 5.3 mg/dl (2.5-4.9); Potassium 3.7 mmol/L (3.5-5.1)
[2024-05-22 08:01] LABS: Basophils # (auto) 0.09 K/uL (0.00-0.20); Basophils % (auto) 0.5 %; Eosinophils # (auto) 0.48 K/uL (0.00-0.50); Eosinophils % (auto) 2.8 %; Immature Granulocytes # (auto) 0.11 K/uL (0.01-0.20); Immature Granulocytes % (auto) 0.6 %; Lymphocytes # (auto) 7.76 K/uL (1.20-3.40); Monocytes # (auto) 0.77 K/uL (0.11-0.59); Monocytes % (auto) 4.5 %; Neutrophils # (auto) 8.04 K/uL (1.40-6.50); Neutrophils % (auto) 46.6 %; Polychromasia 1+; Smudge Cells Present
--- NOTE | 2024-05-22 10:00 | Nephrology Progress Note ---
Date of Service May 22, 2024 Assessment & Plan (1) Acute kidney injury: Plan: * ALLAN/CKD. ALLAN due to CRS and hemodynamically mediated ATN. * Remains oliguric. Unfortunately no significant evidence of renal recovery. * Remains dialysis dependent. Started HD via [facility] on May 17. * Orders for HD today were entered into the EHR and reviewed with the stencil machine operator. * TDC functioning well. * Medications are appropriate for kidney function. * Continue to document strict I/O's. Repeat metabolic profile tomorrow AM. * Low potassium diet. Dietary phosphorus acceptable with current restriction. Jere would like to eat some cottage cheese which would be acceptable. * 1.2 L daily fluid restriction. (2) Chronic kidney disease, stage IV (severe): Plan: * CKD stage G4 (advanced impairment). Baseline Cr has been 1.8-2.0 w/ EGFR 26 cc/min. * Renal US demonstrates advance changes and atrophy. Findings suggestive of significant chronic underlying vascular disease. * Unfortunately prognosis for renal recovery is guarded. (3) CHF (congestive heart failure): Plan: * Cardiology following. * Ischemic cardiomyopathy with HFrEF. * Severe . * s/p dual chamber ICD May 12. * Entresto being held due to relative hypotension. * Monitor daily weight and document strict I/O's. (4) Anemia: Plan: * H/H stable. * Tsat 11 with ferritin ~400. Venofer 200 mg IV daily started today. * Completed Venofer 200 mg daily x 5. * JONATHAN 95333 units provided on 05/17/24. Additional 4000 units provided today. Admission and Anticipated Discharge Date Admission Date: May 02, 2024 Subjective No acute events overnight. Jere was seen and evaluated with her daughter (Lita) at the bedside. I also discussed the plan of care and recent medical history with Dr. Robison. Jere unfortunately remains oliguric. She is breathing comfortably. She does not endorse fluid retention or edema. She is not experiencing chest pains or palpitations. Jere is tolerating dialysis treatments well. She is understandably emotional and adjusting to her kidney dysfunction. She also reports weakness/debility associated with hospitalization. She is asking appropriate questions with regard to ALLAN and hemodialysis treatments. She is anxious to be able to leave the hospital. Review of Systems Review of Systems: All systems reviewed & are unremarkable except as noted in HPI & below Physical Exam Constitutional: well developed; no acute distress Eyes: + anicteric sclerae ENMT: Mouth: oral mucous membranes not dry Neck: normal visual inspection and trachea midline Respiratory: normal respiratory effort Auscultation: lungs clear to auscultation bilaterally Cardiovascular: Rate/Rhythm: regular rate Heart Sounds: normal S1, normal S2 and + murmur Extremities: + edema (trace dependent) Chest (Breasts): Chest: + pacemaker (ICD with incision CDI) and + vascular access device or port ([facility] TDC) Musculoskeletal: Extremities: no cyanosis and no clubbing Skin: no jaundice and no erythema Neurologic: Motor/Sensory: no tremor and no asterixis Psychiatric: Orientation: alert and oriented x 3 Results & Data Vital Signs (Past 12 Hours) Vital Signs Temp Pulse Pulse Pulse Pulse Resp BP 05/22/24 09:21 60 05/22/24 09:11 05/22/24 08:13 36.5 C 59 L 19 115/73 05/22/24 02:47 36.7 C 61 16 05/22/24 00:00 60 05/21/24 22:00 36.6 C 60 19 108/73 BP Pulse Ox O2 Del Method 05/22/24 09:21 05/22/24 09:11 Room Air 05/22/24 08:13 95 Room Air 05/22/24 02:47 110/73 93 Room Air 05/22/24 00:00 05/21/24 22:00 93 Room Air Laboratory Results Laboratory Results - last 24 hr 05/22/24 06:09 WBC 17.25 H RBC 3.18 L Hgb 9.8 L Hct 30.8 L MCV 96.9 MCH 30.8 MCHC 31.8 L RDW Std Deviation 57.1 H RDW Coeff of Nino 16.8 H Plt Count 224 MPV 9.9 Immature Gran % (Auto) 0.6 Neut % (Auto) 46.6 Lymph % (Auto) 45.0 [place] % (Auto) 4.5 Eos % (Auto) 2.8 Baso % (Auto) 0.5 Neut # (Auto) 8.04 H Lymph # (Auto) 7.76 H [place] # (Auto) 0.77 H Eos # (Auto) 0.48 Baso # (Auto) 0.09 Immature Gran # (Auto) 0.11 Absolute Nucleated RBC 0.16 H Nucleated RBC % (auto) 0.9 Smudge Cells Present Polychromasia 1+ Sodium 129 L Potassium 3.7 Chloride 91 L Carbon Dioxide 26 Anion Gap 12 H BUN 51 H Creatinine 4.13 H D Est Cr Clr Drug Dosing 12.6 Est GFR ( Amer) 11.1 Est GFR (Non-Af Amer) 9.6 BUN/Creatinine Ratio 12.3 Glucose 125 H Calcium 8.3 L Phosphorus 5.3 H PG Care Time/CCT Total # of Minutes Spent Total Time Spent with Patient: Total time spent is greater than 50% in coordination of care (as documented) at patient's floor/unit and/or counseling patient: Coding Level of Care Code 45255 SUB INP/OBS CARE 3/50MIN Diagnoses Acute kidney injury N17.9 Chronic kidney disease, stage IV (severe) N18.4 CHF (congestive heart failure) I50.9 Heart failure chronicity: unspecified Heart failure type: unspecified Anemia D64.9 (3) CHF (congestive heart failure) Heart failure chronicity: unspecified Heart failure type: unspecified Qualified Code(s): I50.9 - Heart failure, unspecified
--- NOTE | 2024-05-22 10:45 | Cardiology Progress Note ---
Date of Service May 22, 2024 Assessment & Plan (1) HFrEF (heart failure with reduced ejection fraction): Plan: -Hemodialysis managing volume status well. -Carvedilol was changed to metoprolol to tartrate for an elevated ventricular response to atrial fibrillation. -Consider changing back to carvedilol 3.125 mg twice daily. -Entresto currently on hold due to renal insufficiency. (2) Aortic stenosis: Plan: -Likely severe in degree. -Consider TAVR as an outpatient. (3) PAF (paroxysmal atrial fibrillation): Plan: -Has converted to sinus rhythm and atrial pacing. -Continue adjusted dose Eliquis. (4) CAD (coronary artery disease): Plan: -Quiescent on medical management. -Deemed inoperable when at [facility], June 2019. (5) Ischemic cardiomyopathy: Plan: -Some medications being held due to renal dysfunction. (6) Paroxysmal ventricular tachycardia: Plan: -Resolved on low-dose amiodarone. -Successful ICD placement by Dr. Sanders, May 12. Admission and Anticipated Discharge Date Admission Date: May 02, 2024 Subjective The patient is resting comfortably in bed without complaints of chest pain, dyspnea, or palpitations. She will have dialysis later today. Physical Exam Physical Exam: In general this is a well-developed, well-nourished, white female no acute distress. HEENT is negative. Neck is supple with delayed carotid upstrokes. There are no carotid bruits. No jugular venous distention. There is no thyromegaly. Cardiovascular exam reveals a regular rhythm with distant heart sounds. A 2/6 basal systolic murmur is noted. No S3 or S4. Lungs are clear without rales, rhonchi, or wheezes. Chest reveals an indwelling catheter in the right subclavicular region. Abdomen is soft without bruits. Extremities reveal intact radial artery pulses bilaterally. There is no peripheral edema. Results & Data Vital Signs (Past 12 Hours) Vital Signs Temp Pulse Pulse Pulse Resp BP BP 05/22/24 09:21 60 05/22/24 09:11 05/22/24 08:13 36.5 C 59 L 19 115/73 05/22/24 02:47 36.7 C 61 16 110/73 05/22/24 00:00 60 Pulse Ox O2 Del Method 05/22/24 09:21 05/22/24 09:11 Room Air 09/09/24 08:13 95 Room Air 05/22/24 02:47 93 Room Air 05/22/24 00:00 Diagnostic Findings front desk monitor notes sinus rhythm and atrial pacing. She converted from atrial fibrillation to sinus rhythm on May 20. No ventricular tachycardia. PG Care Time/CCT Total # of Minutes Spent Total Time Spent with Patient: Total time spent is greater than 50% in coordination of care (as documented) at patient's floor/unit and/or counseling patient: Coding Level of Care Code 85088 SUB INP/OBS CARE 3/50MIN Diagnoses HFrEF (heart failure with reduced ejection fraction) I50.20 Aortic stenosis I35.0 PAF (paroxysmal atrial fibrillation) I48.0 CAD (coronary artery disease) I25.10 Ischemic cardiomyopathy I25.5 Paroxysmal ventricular tachycardia I47.29
[2024-05-22] MEDS: Nursing to Pharmacy Communication SCH (13:52)
[2024-05-22] MEDS ORDERED: POLYETHYLENE (MIRALAX) 17 GM PACK PO PRN (14:28)
--- NOTE | 2024-05-22 14:29 | Hospitalist Progress Note ---
Date of Service May 22, 2024 Assessment & Plan (1) HFrEF (heart failure with reduced ejection fraction): Plan: Presented with acute on chronic HFrEF and a gradual decline with progressing weakness. CXR on admission with patchy right basilar densities favoring aceves bsegmental atelectasis. Subsequent chest x-ray with small bilateral pleural effusions and pulmonary edema with cardiomegaly. Was diuresed aggressively initially with higher doses of Lasix and 1 dose of metolazone, with rising creatinine/ALLAN and eventually with oliguria Now requiring hemodialysis and volume status is improving Echo w/ progression to severe aortic stenosis, moderate to severe MR, EF 30-35%, positive wall motion abnormalities. With H/o CAD- not a candidate for CABG when evaluated several years ago Had an episode of V. tach/torsades-placed on amiodarone drip and and then ICD p lacement on 05/12 Cardiology recommendations appreciated Continue rate control of A-fib- cardiology switched carvedilol to metoprolol tartrate on 05/13-convert to Toprol-XL 25 Mg p.o. twice daily Entresto, spironolactone, and SGLT 2 all on hold/not given due to poor renal function. Follow daily weights, strict I's and O's, hemodialysis to manage volume status (2) Chronic kidney disease, stage IV (severe): Plan: With ALLAN in the setting of CKD stage IV. She began hemodialysis on May 17 and had another hemodialysis session on May 18, another planned for 05/22. BUN and creatinine have improved and her mental status has also improved. Entresto has been discontinued. Lasix, and spironolactone are currently on hold. Appreciate nephrology consultation and recommendations. It seems her renal function is not recovering and she will continue to need dialysis after discharge. She is still making minimal urine She may end up progressing towards end-stage renal disease on hemodialysis Follow BMP Renally dose medications, avoid nephrotoxins (3) UTI (urinary tract infection): Plan: Klebsiella and E. coli isolated. She completed 7 days of antibiotics between cefepime and ceftriaxone (4) Paroxysmal ventricular tachycardia: Plan: Occurred on May 10. She was given intravenous amiodarone and now is on oral amiodarone loading dose. ICD was placed on May 12. Surgical site is unremarkable. Appreciate cardiology consultation. Amiodarone uptitrated on May 20 due to recurrent runs of nonsustained V. tach. Continue to monitor on telemetry and keep electrolytes replete Follow BMP, magnesium (5) Aortic stenosis: Plan: Moderate-severe as seen on cardiac echo. Needs outpatient evaluation for TAVR which will be arranged by her primary project management instructor. Avoid overdiuresis and low blood pressure (6) PAF (paroxysmal atrial fibrillation): Plan: Was in sinus rhythm earlier this admission but converted to rapid atrial fibrillation on 05/05. Cardiology consultation and recommendations appreciated. Carvedilol has been switched to metoprolol tartrate and now will switch to metoprolol succinate Intravenous amiodarone has been switched to oral dosing. She converted to sinus rhythm on 05/20, also being paced at times Continue Eliquis, renally dosed Monitor on telemetry (7) Demand ischemia: Plan: No evidence of acute coronary syndrome. Telemetry. Continue current medical management (8) CAD (coronary artery disease): Plan: Stable. Continue current medical management. Telemetry Continue Plavix, metoprolol, atorvastatin (9) CLL (chronic lymphocytic leukemia): Plan: Serial labs. With leukocytosis Iron deficiency noted. She has received parenteral iron replacement Follow with hematology as an outpatient Plan DVT prophylaxis-Eliquis Disposition-continued stay in PCU, awaiting rehab placement but is more complex now that she is needing outpatient hemodialysis Admission and Anticipated Discharge Date Admission Date: May 02, 2024 Subjective Patient still upset that she had to be started on dialysis. Denies shortness of breath. She moved her bowels a couple of times today and several times yesterday. She has been refusing the laxatives last few days. Telemetry with sinus rhythm since 05/20 and paced rhythm, rates in the 60s Physical Exam Constitutional: WD/WN, vitals as above Respiratory: normal respiratory effort, lungs clear to auscultation Cardiovascular: Rate/Rhythm: regular rate and + irregularly irregular Heart Sounds: + murmur (3/6 DEBRA at the RUSB) Chest (Breasts): Chest: + pacemaker (Pacer/ICD on left anterior chest wall) and + vascular access device or port (Rt anterior chest wall w/ tunneled dialysis cath, no surrounding erythema) Gastrointestinal (Abdomen): normal bowel sounds, soft, nontender, no hepatosplenomegaly Psychiatric: A+Ox3, euthymic affect Results & Data Results & Data Vital Signs (Past 12 Hours) Vital Signs Temp Pulse Pulse Pulse Resp BP BP 05/22/24 13:53 65 116/73 05/22/24 11:29 36.6 C 60 20 102/69 05/22/24 09:21 60 05/22/24 09:11 05/22/24 08:13 36.5 C 59 L 19 115/73 05/22/24 02:47 36.7 C 61 16 110/73 Pulse Ox O2 Del Method 05/22/24 13:53 05/22/24 11:29 94 Room Air 05/22/24 09:21 05/22/24 09:11 Room Air 05/22/24 08:13 95 Room Air 05/22/24 02:47 93 Room Air Laboratory Results CBC, BMP, urine culture reviewed PG Care Time/CCT Total # of Minutes Spent Total Time Spent with Patient: Total time spent is greater than 50% in coordination of care (as documented) at patient's floor/unit and/or counseling patient: Coding Level of Care Code 42951 SUB INP/OBS CARE 2/35MIN Diagnoses HFrEF (heart failure with reduced ejection fraction) I50.20 Chronic kidney disease, stage IV (severe) N18.4 UTI (urinary tract infection) N39.0 Paroxysmal ventricular tachycardia I47.29 Aortic stenosis I35.0 PAF (paroxysmal atrial fibrillation) I48.0 Demand ischemia I24.89 CAD (coronary artery disease) I25.10 CLL (chronic lymphocytic leukemia) C91.90
[2024-05-22] MEDS: EPOETIN ALFA 4,000 UNIT/ML VIAL IV ONE (15:39)
[2024-05-22] MEDS: METOPROLOL SUCC 25MG EXT REL TAB PO SCH (20:35)
[2024-05-23 07:37] LABS: Hematocrit (blood only) 28.9 % (37.0-47.0); Hemoglobin 9.3 g/dl (12.0-16.0); Mean Corpuscular Hemoglobin 30.9 pg (25.0-34.0); Mean Corpuscular Hgb Conc 32.2 g/dL (32.0-36.0); Mean Platelet Volume 10.1 fL (9.4-12.4); Nucleated RBC # (auto) 0.25 K/uL (0.00-0.12); Nucleated RBC % (auto) 1.6 %; Platelet Count 210 K/uL (130-400); RDW Coefficient of Variation 17.5 % (11.5-14.5); RDW Standard Deviation 55.8 fL (36.4-46.3); Red Blood Count 3.01 M/uL (4.20-5.40); White Blood Count 15.68 K/ul (4.8-10.8)
[2024-05-23 08:06] LABS: BUN Creatinine Ratio 9.9 (10-20); Calcium 8.1 mg/dl (8.6-10.3); Creatinine Clr Calc Pharmacy 17.4 ml/min; Est GFR (African American) 16.1 ml/min; Est GFR (Non-African American) 13.9 ml/min; Magnesium 1.9 mg/dl (1.7-2.4); Phosphorus 3.9 mg/dl (2.5-4.9); Potassium 3.6 mmol/L (3.5-5.1)
[2024-05-23 08:30] LABS: Basophils # (auto) 0.07 K/uL (0.00-0.20); Basophils % (auto) 0.4 %; Eosinophils # (auto) 0.31 K/uL (0.00-0.50); Immature Granulocytes # (auto) 0.09 K/uL (0.01-0.20); Immature Granulocytes % (auto) 0.6 %; Lymphocytes # (auto) 6.74 K/uL (1.20-3.40); Monocytes # (auto) 0.76 K/uL (0.11-0.59); Monocytes % (auto) 4.8 %; Neutrophils # (auto) 7.71 K/uL (1.40-6.50); Neutrophils % (auto) 49.2 %; Smudge Cells Present
[2024-05-23] MEDS: MAGNESIUM SULFATE / D5W 1 GM/100 ML BAG IV ONE (09:06)
--- NOTE | 2024-05-23 10:31 | Nephrology Progress Note ---
Date of Service May 23, 2024 Assessment & Plan (1) Acute kidney injury: Plan: Acute kidney injury superimposed on advanced CKD. ALLAN attributed to CRS and hemodynamically mediated ATN. Remains oliguric. Unfortunately no signs of renal recovery. Started HD via [facility] T[facility] on May 17. Completed treatment yesterday with adequate UF and clearance. Next HD planned for tomorrow. Check metabolic profile tomorrow AM. Medications are appropriate for kidney function. (2) Chronic kidney disease, stage IV (severe): Plan: CKD stage G4 (advanced impairment). Baseline Cr 1.8-2.0 w/ EGFR 26 cc/min. Renal US demonstrates advance atrophy. Findings suggestive of significant chronic underlying vascular/chronic disease. Unfortunately prognosis for renal recovery is guarded. (3) CHF (congestive heart failure): Plan: Ischemic cardiomyopathy with HFrEF. Severe . s/p dual chamber ICD May 12. Entresto being held due to relative hypotension and ALLAN. Monitor daily weight and document strict I/O's. (4) Anemia: Plan: * H/H stable. * Completed Venofer 200 mg daily x 5. * JONATHAN 20162 units provided on 05/17/24. Additional 4000 units provided 05/22. Admission and Anticipated Discharge Date Admission Date: May 02, 2024 Subjective No acute events overnight. Jere tolerated HD well yesterday. No complications with treatment. She remains weak and debilitated. I discussed the patient with her RN, PT, and Dr. Robison this morning. Review of Systems Review of Systems: All systems reviewed & are unremarkable except as noted in HPI & below Constitutional: + fatigue and + anorexia; no fever and n o chills Physical Exam Constitutional: well developed; no acute distress Eyes: + anicteric sclerae ENMT: Mouth: oral mucous membranes not dry Neck: normal visual inspection Respiratory: normal respiratory effort Auscultation: lungs clear to auscultation bilaterally Cardiovascular: Rate/Rhythm: + bradycardic Heart Sounds: normal S1, normal S2 and + murmur Extremities: + edema (trace dependent) Chest (Breasts): Chest: + pacemaker (ICD) and + vascular access device or port ([facility] TDC) Musculoskeletal: Extremities: no cyanosis and no clubbing Skin: no jaundice Neurologic: Motor/Sensory: no tremor and no asterixis Psychiatric: Orientation: alert and oriented x 3 Results & Data Vital Signs (Past 12 Hours) Vital Signs Temp Pulse Pulse Resp BP Pulse Ox O2 Del Method 05/23/24 07:36 60 05/23/24 07:13 36.5 C 60 18 105/64 91 Room Air 05/23/24 02:57 36.6 C 70 18 102/60 93 Room Air 05/22/24 23:46 65 05/22/24 22:43 36.8 C 61 18 105/60 94 Room Air Laboratory Results Laboratory Results - last 24 hr 05/23/24 07:09 WBC 15.68 H RBC 3.01 L Hgb 9.3 L Hct 28.9 L MCV 96.0 MCH 30.9 MCHC 32.2 RDW Std Deviation 55.8 H RDW Coeff of Nino 17.5 H Plt Count 210 MPV 10.1 Immature Gran % (Auto) 0.6 Neut % (Auto) 49.2 Lymph % (Auto) 43.0 [place] % (Auto) 4.8 Eos % (Auto) 2.0 Baso % (Auto) 0.4 Neut # (Auto) 7.71 H Lymph # (Auto) 6.74 H [place] # (Auto) 0.76 H Eos # (Auto) 0.31 Baso # (Auto) 0.07 Immature Gran # (Auto) 0.09 Absolute Nucleated RBC 0.25 H Nucleated RBC % (auto) 1.6 Smudge Cells Present Sodium 134 L Potassium 3.6 Chloride 99 Carbon Dioxide 26 Anion Gap 9 BUN 30 H D Creatinine 3.04 H D Est Cr Clr Drug Dosing 17.4 Est GFR ( Amer) 16.1 Est GFR (Non-Af Amer) 13.9 BUN/Creatinine Ratio 9.9 L Glucose 120 H Calcium 8.1 L Phosphorus 3.9 D Magnesium 1.9 PG Care Time/CCT Total # of Minutes Spent Total Time Spent with Patient: Total time spent is greater than 50% in coordination of care (as documented) at patient's floor/unit and/or counseling patient: Coding Level of Care Code 88778 SUB INP/OBS CARE 3/50MIN Diagnoses Acute kidney injury N17.9 Chronic kidney disease, stage IV (severe) N18.4 CHF (congestive heart failure) I50.9 Heart failure chronicity: unspecified Heart failure type: unspecified Anemia D64.9 (3) CHF (congestive heart failure) Heart failure chronicity: unspecified Heart failure type: unspecified Qualified Code(s): I50.9 - Heart failure, unspecified
[2024-05-23 15:55] VITALS: RESP 18
--- NOTE | 2024-05-23 16:58 | Hospitalist Progress Note ---
Date of Service May 23, 2024 Assessment & Plan (1) HFrEF (heart failure with reduced ejection fraction): Plan: Presented with acute on chronic HFrEF and a gradual decline with progressing weakness. CXR on admission with patchy right basilar densities favoring s ubsegmental atelectasis. Subsequent chest x-ray with small bilateral pleural effusions and pulmonary edema with cardiomegaly. Was diuresed aggressively initially with higher doses of Lasix and 1 dose of metolazone, with rising creatinine/ALLAN and eventually with oliguria Now requiring hemodialysis and volume status is much improved Echo w/ progression to severe aortic stenosis, moderate to severe MR, EF 30-35%, positive wall motion abnormalities. With H/o CAD- not a candidate for CABG when evaluated several years ago Had an episode of V. tach/torsades-placed on amiodarone drip and and then ICD placement on 05/12 Cardiology recommendations appreciated Continue rate control of A-fib- cardiology switched carvedilol to Toprol-XL 25 Mg p.o. twice daily Entresto, spironolactone, and SGLT 2 all on hold/not given due to poor renal function. Follow daily weights, strict I's and O's, hemodialysis to manage volume status (2) Chronic kidney disease, stage IV (severe): Plan: With ALLAN in the setting of CKD stage IV. She began hemodialysis on May 17 and had another hemodialysis session on May 18, another planned for 05/22. BUN and creatinine have improved and her mental status has also improved. Entresto has been discontinued. Lasix, and spironolactone are currently on hold. Appreciate nephrology consultation and recommendations. It seems her renal function is not recovering and she will continue to need dialysis after discharge. She is still making minimal urine She may end up progressing towards end-stage renal disease on hemodialysis, but not clear yet Follow BMP Renally dose medications, avoid nephrotoxins (3) UTI (urinary tract infection): Plan: Klebsiella and E. coli isolated. She completed 7 days of antibiotics between cefepime and ceftriaxone (4) Paroxysmal ventricular tachycardia: Plan: Occurred on May 10. She was given intravenous amiodarone and now is on oral amiodarone loading dose. ICD was placed on May 12. Surgical site is unrem arkable. Appreciate cardiology consultation. Amiodarone uptitrated on May 20 due to recurrent runs of nonsustained V. tach. Continue to monitor on telemetry and keep electrolytes replete Follow BMP, magnesium (5) Aortic stenosis: Plan: Moderate-severe as seen on cardiac echo. Needs outpatient evaluation for TAVR which will be arranged by her primary hoop expander. Avoid overdiuresis and low blood pressure (6) PAF (paroxysmal atrial fibrillation): Plan: Was in sinus rhythm earlier this admission but converted to rapid atrial fibrillation on 05/05. Cardiology consultation and recommendations appreciated. Carvedilol has been switched to metoprolol succinate Intravenous amiodarone has been switched to oral dosing. She converted to sinus rhythm on 05/20, also being paced at times Continue Eliquis, renally dosed Monitor on telemetry She will need f/u with Cardiology after discharge (7) Demand ischemia: Plan: No evidence of acute coronary syndrome. Telemetry. Continue current medical management (8) CAD (coronary artery disease): Plan: Stable. Continue current medical management. Telemetry Continue Plavix, metoprolol, atorvastatin (9) CLL (chronic lymphocytic leukemia): Plan: Serial labs. With leukocytosis now improving Iron deficiency noted. She has received parenteral iron replacement Follow with hematology as an outpatient Plan DVT prophylaxis-Eliquis Disposition-continued stay in PCU, awaiting SNF placement and outpt HD arrangements being finalized, possible discharge tomorrow Admission and Anticipated Discharge Date Admission Date: May 02, 2024 Anticipated date of discharge: 05/24/24 Subjective Pt in better spirits today, family visiting at the bedside. Denies pain, SOB. No BM today. Is eating her food. Tele with sinus and paced rhythm, rates 60s Physical Exam Constitutional: WD/WN, vitals as above Respiratory: normal respiratory effort, lungs clear to auscultation Cardiovascular: Rate/Rhythm: regular rate and regular rhythm Heart Sounds: + murmur (3/6 DEBRA at the RUSB) Extremities: no edema Chest (Breasts): Chest: + pacemaker (Pacer/ICD on left anterior chest wall) and + vascular access device or port (Rt anterior chest wall w/ tunneled dialysis cath, no surrounding erythema); + abnormal inspection of chest (Steri- Strips over ICD in place left anterior chest wall,surrounding bruise) Gastrointestinal (Abdomen): normal bowel sounds, soft, nontender, no hepatosplenomegaly Psychiatric: A+Ox3, euthymic affect Orientation: cooperative Results & Data Results & Data Vital Signs (Past 12 Hours) Vital Signs Temp Pulse Pulse Resp BP Pulse Ox O2 Del Method 05/23/24 15:53 36.5 C 60 18 116/77 91 Room Air 05/23/24 11:15 36.6 C 60 19 102/70 91 Room Air 05/23/24 07:36 60 05/23/24 07:13 36.5 C 60 18 105/64 91 Room Air Laboratory Results CBC, BMP, magnesium reviewed PG Care Time/CCT Total # of Minutes Spent Total Time Spent with Patient: Total time spent is greater than 50% in coordination of care (as documented) at patient's floor/unit and/or counseling patient: Coding Level of Care Code 25441 SUB INP/OBS CARE 2/35MIN Diagnoses HFrEF (heart failure with reduced ejection fraction) I50.20 Chronic kidney disease, stage IV (severe) N18.4 UTI (urinary tract infection) N39.0 Paroxysmal ventricular tachycardia I47.29 Aortic stenosis I35.0 PAF (paroxysmal atrial fibrillation) I48.0 Demand ischemia I24.89 CAD (coronary artery disease) I25.10 CLL (chronic lymphocytic leukemia) C91.90
[2024-05-24] MEDS ORDERED: Nursing to Pharmacy Communication SCH (06:45)
[2024-05-24 07:51] LABS: Hematocrit (blood only) 32.5 % (37.0-47.0); Hemoglobin 10.2 g/dl (12.0-16.0)
[2024-05-24 07:58] VITALS: O2SAT 91
[2024-05-24 08:05] LABS: Albumin Level 3.4 gm/dl (3.4-5.0); Calcium 8.6 mg/dl (8.6-10.3); Creatinine Clr Calc Pharmacy 15.7 ml/min; Est GFR (African American) 14.2 ml/min; Est GFR (Non-African American) 12.2 ml/min; Magnesium 2.1 mg/dl (1.7-2.4); Phosphorus 4.4 mg/dl (2.5-4.9); Potassium 3.7 mmol/L (3.5-5.1)
--- NOTE | 2024-05-24 09:53 | Nephrology Progress Note ---
Date of Service May 24, 2024 Assessment & Plan (1) Acute kidney injury: Plan: Acute kidney injury superimposed on advanced CKD. ALLAN attributed to CRS and hemodynamically mediated ATN. Remains oliguric. No signs of renal recovery. Started HD via [facility] on May 17. Orders for HD today entered into the EHR and reviewed with cost reduction engineer. Jere is tolerating HD well. TDC functioning well. Anticipate possible discharge today. Outpatient HD orders provided to [facility] in anticipation of discharge. Medications are appropriate for kidney function. (2) Chronic kidney disease, stage IV (severe): Plan: CKD stage G4 (advanced impairment). Baseline Cr 1.8-2.0 mg/dL. Renal US demonstrates significant renal atrophy. Findings suggestive of advanced underlying vascular/chronic disease. Unfortunately prognosis for renal recovery is guarded. (3) CHF (congestive heart failure): Plan: Ischemic cardiomyopathy with HFrEF. Severe . s/p dual chamber ICD May 12. Entresto being held due to relative hypotension and ALLAN. Monitor daily weight and document strict I/O's. (4) Anemia: Plan: H/H stable. Completed Venofer 200 mg daily x 5. JONATHAN 76217 units provided on 05/17/24. Additional 4000 units provided 05/22. Admission and Anticipated Discharge Date Admission Date: May 02, 2024 Subjective No acute events overnight. Jere was seen and evaluated this AM prior to and during hemodialysis. She remains oliguric. Appetite remains poor. No significant fluid retention or edema. Denies dyspnea. No chest pain or shortness of breath. Review of Systems Review of Systems: All systems reviewed & are unremarkable except as noted in HPI & below Physical Exam Constitutional: well developed; no acute distress Eyes: + anicteric sclerae ENMT: Mouth: no oral mucosal abnormality and oral mucous membranes not dry Neck: normal visual inspection and trachea midline Respiratory: normal respiratory effort Auscultation: lungs clear to auscultation bilaterally Cardiovascular: Rate/Rhythm: + irregularly irregular Heart Sounds: normal S1, normal S2 and + murmur Extremities: + edema (trace dependent) Chest (Breasts): Chest: + pacemaker (ICD) and + vascular access device or port ([facility] TDC) Musculoskeletal: Extremities: no cyanosis and no clubbing Skin: no jaundice Neurologic: Motor/Sensory: no tremor and no asterixis Psychiatric: Orientation: alert and oriented x 3 Results & Data Vital Signs (Past 12 Hours) Vital Signs Temp Pulse Pulse Pulse Resp BP Pulse Ox 05/24/24 07:57 36.6 C 65 18 112/73 91 05/24/24 07:34 05/24/24 02:52 36.6 C 60 18 132/75 92 05/23/24 23:32 60 05/23/24 23:09 36.6 C 61 18 113/73 92 05/23/24 22:46 O2 Del Method 05/24/24 07:57 Room Air 05/24/24 07:34 Room Air 05/24/24 02:52 Room Air 05/23/24 23:32 05/23/24 23:09 Room Air 05/23/24 22:46 Room Air Laboratory Results Laboratory Results - last 24 hr 05/24/24 06:42 Hgb 10.2 L Hct 32.5 L Sodium 131 L Potassium 3.7 Chloride 96 L Carbon Dioxide 22 Anion Gap 13 H BUN 37 H Creatinine 3.37 H D Est Cr Clr Drug Dosing 15.7 Est GFR ( Amer) 14.2 Est GFR (Non-Af Amer) 12.2 BUN/Creatinine Ratio 11.0 Glucose 135 H Calcium 8.6 Phosphorus 4.4 Magnesium 2.1 Albumin 3.4 PG Care Time/CCT Total # of Minutes Spent Total Time Spent with Patient: Total time spent is greater than 50% in coordination of care (as documented) at patient's floor/unit and/or counseling patient: Coding Level of Care Code 46907 SUB INP/OBS CARE 3/50MIN Diagnoses Acute kidney injury N17.9 Chronic kidney disease, stage IV (severe) N18.4 CHF (congestive heart failure) I50.9 Heart failure chronicity: unspecified Heart failure type: unspecified Anemia D64.9 (3) CHF (congestive heart failure) Heart failure chronicity: unspecified Heart failure type: unspecified Qualified Code(s): I50.9 - Heart failure, unspecified
[2024-05-24 13:11] VITALS: BP 121/91; TEMP 98.1
--- NOTE | 2024-05-24 13:48 | Discharge Summary ---
Discharge Summary Date of Service May 24, 2024 Principal Dx & Hospital Course #1 = Principal Diagnosis (1) HFrEF (heart failure with reduced ejection fraction): Presented with acute on chronic HFrEF and a gradual decline with progressing weakness. CXR on admission with patchy right basilar densities favoring subsegmental atelectasis. Subsequent chest x-ray with small bilateral pleural effusions and pulmonary edema with cardiomegaly. Was diuresed aggressively initially with higher doses of Lasix and 1 dose of metolazone, with rising creatinine/ALLAN and eventually with oliguria Now requiring hemodialysis and volume status is much improved Echo w/ progression to severe aortic stenosis, moderate to severe MR, EF 30-35%, positive wall motion abnormalities. With H/o CAD- not a candidate for CABG when evaluated several years ago Had an episode of V. tach/torsades-placed on amiodarone drip and and then ICD placement on 05/12 Cardiology recommendations appreciated Continue rate control of A-fib- cardiology switched carvedilol to Toprol-XL 25 Mg p.o. twice daily Entresto, spironolactone, and SGLT 2 all on hold/not given due to poor renal function. Follow daily weights, strict I's and O's, fluid restrict to 1200mL, hemodialysis to manage volume status (2) Chronic kidney disease, stage IV (severe): With ALLAN in the setting of CKD stage IV. She began hemodialysis on May 17 and had another hemodialysis session on May 18, another planned for 05/22. BUN and creatinine have improved and her mental status has also improved. Entresto, lasix, and spironolactone all have been discontinued. Appreciate nephrology consultation and recommendations. It seems her renal function is not recovering and she will continue to need dialysis after discharge. She is still making minimal urine She may end up progressing towards end-stage renal disease on hemodialysis, but not clear yet Follow BMP as outpt at dialysis Renally dose medications, avoid nephrotoxins (3) UTI (urinary tract infection): Klebsiella and E. coli isolated. She completed 7 days of antibiotics between cefepime and ceftriaxone (4) Paroxysmal ventricular tachycardia: Occurred on May 10. She was given intravenous amiodarone and now is on oral amiodarone loading dose. ICD was placed on May 12. Surgical site is unremarkable. Appreciate cardiology consultation. Amiodarone uptitrated on May 20 due to recurrent runs of nonsustained V. tach. None further since then F/u with Cardiology/EP after discharge No lifting LUE above level of shoulder for 5 more weeks (5) Aortic stenosis: Moderate-severe as seen on cardiac echo. Needs outpatient evaluation for TAVR which will be arranged by her primary rn internal medicine. Avoid overdiuresis and low blood pressure (6) PAF (paroxysmal atrial fibrillation): Was in sinus rhythm earlier this admission but converted to rapid atrial fibrillation on 05/05. Cardiology consultation and recommendations appreciated. Carvedilol has been switched to metoprolol succinate Intravenous amiodarone has been switched to oral dosing. She converted to sinus rhythm on 05/20, also being paced at times Continue Eliquis, renally dosed Continue amiodarone 200mg po bid likely for a few weeks and then could likely go down on dose then but defer to outpt Cardiology follow up She will need f/u with Cardiology after discharge (7) Demand ischemia: No evidence of acute coronary syndrome. Telemetry. Continue current medical management (8) CAD (coronary artery disease): Stable. Continue current medical management. Telemetry Continue Plavix, metoprolol, atorvastatin (9) CLL (chronic lymphocytic leukemia): Serial labs. With leukocytosis now improving Iron deficiency noted. She has received parenteral iron replacement Follow with hematology as an outpatient Plan DVT prophylaxis-Eliquis Disposition-dc to [facility] with outpt HD at [facility]. Discussed care with daughter at bedside on day of discharge Notes For Next Care Provider Follow up with Cardiology within 2 weeks Medication Changes From Visit See list Admission HPI Per Admitting Provider Jere Diaz is an 78yo female with PMH of chronic low back pain, HFrEF (LVEF of 45-50%), CAD s/p anteroapical AK in 2010, HTN, paroxysmal a fib, Diet controlled T2DM, CKD, CLL, and anxiety who presented to the [facility] ED on 05/02/2024 with multiple complaints including generalized weakness, nausea with nonbloody emesis, and diarrhea. She remained stable in the ED. Labs were significant for an improving white blood cell count of 14, with neutrophil predominance of 9, hemoglobin of 9.5 (down from 10 as of 03/30/2024), stable renal function with bicarb of 19 and anion gap within normal limits, initial high-sensitivity troponin 28 with BNP greater than 4700, and full respiratory BioFire negative. Chest x-ray was read as patchy right basilar densities have progressed in favor of subsegmental atelectasis. The superior imposed pneumonia would be difficult to exclude by imaging. Cardiomegaly and chronic interstitial thickening again noted. ECG shows sinus rhythm with first- degree AV block. Prior to admission the patient was given 4 mg IV Zofran. We are asked to admit the patient for generalized weakness and possible rehab placement. Patient was sitting in bed in no acute distress at time of exam with her daughter at bedside, history is obtained from both. Patient has been e xperiencing progressive generalized weakness over the past few weeks with associated dyspnea on exertion causing limited mobility. Diet has been poor as she has little appetite at this time. Has been having a nonproductive cough throughout the day. No recent urinary symptoms. Started develop nausea with nonbloody emesis and nonbloody diarrhea after eating hotdogs for dinner on 04/30/2024 however the symptoms have essentially resolved. Denies any diarrhea today has had mild nausea with dry heaves but no emesis. Has been taking her medications as prescribed. Almost had another fall today but likely family was there to stabilize her before she actually fell to the ground. Family is concerned she is getting too weak for them to safely care for her and she may need rehab and/or SNF placement. We discussed CODE STATUS, at this time the patient wishes to be a conditional code. She would not want CPR or defibrillation in the event of cardiac arrest. In the event of respiratory failure she would want a trial of intubation and mechanical ventilation but would not want to be on a ventilator permanently. She would want her daughter to make medical decisions for her if she cannot make them herself. Please refer to Dr. Santillan's attestation for any changes to treatment plan Discharge Exam Constitutional WD/WN, vitals as above Respiratory normal respiratory effort, lungs clear to auscultation Cardiovascular Rate/Rhythm: regular rate and + irregularly irregular Heart Sounds: + murmur (3/6 DEBRA at the RUSB) Extremities: no edema Chest (Breasts) Chest: + pacemaker (Pacer/ICD on left anterior chest wall) and + vascular access device or port (Rt anterior chest wall w/ tunneled dialysis cath, no surrounding erythema); + abnormal inspection of chest (Steri-Strips over ICD in place left anterior chest wall,surrounding bruise) Gastrointestinal (Abdomen) normal bowel sounds, soft, nontender, no hepatosplenomegaly Psychiatric A+Ox3, euthymic affect Discharge Plan Discharge Items Patient Disposition: Transfer [facility] Reason For Visit: GENERALIZED WEAKNESS, HYPOXIA Discharge Diagnosis: Acute kidney injury Ventricular tachycardia Acute on chronic HFrEF Severe aortic stenosis Condition on Discharge: Fair Activity: As commented below Lifting: Gradually increase as tolerated Bathing: Keep incision dry Bathing Comment: keep tunnelled catheter dry Exercise Comment: Do not lift left arm above the level of the shoulder for 5 weeks Weightbearing: Full weightbearing Non-emergency contact: Primary Care Provider, [facility] Call non-emergency contact if: you have any medication questions and your symptoms worsen Follow-up/Referrals: Rigo Robison MD [Physician] - (Please follow up within 2 weeks ) Arlen Frederick MD [Primary Care Provider] - Diet: Dialysis Renal and Heart Healthy Fluids: 1200ml (5 cups) Addtl Attending Provider Instructions: You were admitted with fluid overload from heart failure and developed worsening kidney failure which required you to start on kidney dialysis. Please continue with dialysis three times a week and follow up with your [facility], Dr. Leonard. You also had ventricular tachycardia and had a defibrillator/pacemaker placed to protect you from cardiac arrest. You have severe aortic stenosis and atrial fibrillation. Please follow up with Dr. Robison to discuss a referral for evaluation for repair of your heart valve in the future. Pending Studies at Discharge: No Stand-Alone Forms: My [facility] Skilled Items Patient informed of condition?: Yes DNR: No Discharge Level of Care: Skilled Communicable Disease: No Discharge Prognosis: Improving Lines: [place] Urinary Catheter: No Medications and DC Order Prescriptions: New Eliquis 2.5 mg Tablet 2.5 mg PO BID Qty: 60 0RF metoprolol succinate 25 mg Tablet Extended Release 24 Hr 25 mg PO BID Qty: 60 0RF bisacodyl [Gentle Laxative (bisacodyl)] 5 mg Tablet,Delayed Release (Dr/Ec) 5 mg PO DAILY PRN (Reason: constipation) Qty: 10 0RF acetaminophen [Tylenol Extra Strength] 500 mg Tablet 1,000 mg PO Q8H PRN (Reason: pain) Qty: 60 0RF Continued atorvastatin [Lipitor] 80 mg tablet 80 mg PO HS Qty: 90 3RF clopidogrel 75 mg tablet 75 mg PO DAILY Qty: 90 3RF folic acid 1 mg tablet 1 mg PO DAILY Qty: 90 0RF (DME) Comfort Touch Ult Thin Lancets 31 gauge misc See Rx Instructions .Route Qty: 100 3RF Rx Instructions: pt tests every other day nitroglycerin [Nitrostat] 0.4 mg tablet, sublingual 0.4 mg sublingual UD PRN (Reason: Chest Pain) Qty: 25 1RF sertraline [Zoloft] 100 mg tablet 100 mg PO DAILY Qty: 90 1RF (DME) OneTouch Verio test strips Strip See Rx Instructions .ROUTE .MEDSUPPLY Qty: 100 1RF Rx Instructions: check once daily Dx code: E11.9 fexofenadine 180 mg tablet 180 mg PO Q24H Qty: 90 3RF fluticasone propionate 50 mcg/actuation spray,suspension 1 spray intranasal QAM Qty: 48 1RF pantoprazole 40 mg tablet,delayed release (DR/EC) 40 mg PO DAILY Qty: 90 3RF albuterol sulfate 90 mcg/actuation HFA aerosol inhaler 1 puff inhalation Q6H PRN (Reason: Shortness Of Breath) Qty: 8.5 1RF Rx Instructions: INHALE 1 PUFF BY MOUTH EVERY 6 HOURS NEEDED FOR SHORTNESS OF BREATH cholecalciferol (vitamin D3) 50 mcg (2,000 unit) tablet 2,000 unit PO QAM Qty: 90 3RF mecobalamin (vitamin B12) 1,000 mcg tablet,disintegrating 1,000 mcg sublingual DAILY Qty: 90 1RF Rx Instructions: place tablet under tongue and allow to dissolve for at least30 secs before swallowing triamcinolone acetonide 0.5 % ointment 1 applic topical BID Qty: 15 0RF Changed polyethylene glycol 3350 [Miralax] 17 gram/dose powder 17 g PO DAILY PRN (Reason: constipation) Qty: 119 0RF amiodarone 200 mg tablet 200 mg PO BID Qty: 60 1RF Discontinued Eliquis 5 mg tablet 5 mg PO BID Qty: 180 1RF Rx Instructions: TAKE 1 TABLET BY MOUTH TWICE A DAY Entresto 97-103 mg tablet 1 tab PO BID Qty: 120 3RF furosemide 20 mg tablet 20 mg PO QAM Qty: 90 3RF Rx Instructions: Can take and additional 20mg tablet as needed for weight gain, swelling or edema. spironolactone 25 mg tablet 25 mg PO DAILY Qty: 90 0RF Rx Instructions: TAKE 1 TABLET BY MOUTH EVERY DAY carvedilol 6.25 mg tablet 3.125 mg PO BID Qty: 180 3RF Tymlos 80 mcg (3,120 mcg/1.56 mL) pen injector 80 mcg SUBCUT QAM prednisone 10 mg tablet 10 mg PO UD Rx Instructions: tapering end date around 3 PO daily x 3 d, then 2 PO daily x 3 d, then 1 PO DAILY; Discharge Orders: Discharge Order- CHF (Routine); Ordered 05/24/24 Ordered By: Danielle Huitron Admission Data Admit Date/Time: 05/02/24 12:56 Attending Provider: Danielle Huitron Admit Provider: Aaron Santillan Primary Care Provider: Arlen Frederick Other Providers: [facility]; Aaron Santillan; Jose Cruz Tran; Zack Roach; Dontrell Hernández Hospital Stay Data Consultations 05/02/24 12:18 ED Decision to Admit Stat 05/08/24 08:23 Consult Nephrology Routine 05/08/24 12:19 Consult Cardiology Routine 05/16/24 10:52 Consult Vascular Surgery Routine Procedures Performed Operation Date: 05/17/24 07:50 Actual Procedures p Perm Catheter Insertion,Right Internal Jugular Approach,Ultrasound Localization of Right Internal Jugular Vein, Fluoroscopy for Positioning,Moderate Sedation [id number](Right) - Dontrell Hernández MD Diagnostic Imagining Performed 05/02/24 12:14 CT head/brain wo con Stat 05/03/24 00:14 MR brain wo con Routine 05/12/24 06:40 CL Cath Imgs for PACS use only Routine 05/12/24 14:15 EP Lab Images for PACS ONCE 05/15/24 12:35 US renal/blad retro comp Routine 05/17/24 07:54 EV cvc insrt tunnel wo prt/dark room attendant Routine US EV guide vascular access Routine ECHO Pending Results Patient Have Any Pending Studies at Discharge: No Discharge Instructions Given to Patient (Per Discharging Provider) You were admitted with fluid overload from heart failure and developed worsening kidney failure which required you to start on kidney dialysis. Please continue with dialysis three times a week and follow up with your [facility], Dr. Tran. You also had ventricular tachycardia and had a defibrillator/pacemaker placed to protect you from cardiac arrest. You have severe aortic stenosis and atrial fibrillation. Please follow up with Dr. Robison to discuss a referral for evaluation for repair of your heart valve in the future. Total Time Total Time Spent Total Time Spent (In Minutes): 45 min Total Time Includes: Examination of the Patient, Discharge Planning and Medication Reconciliation Coding Level of Care Code 91896 INP/OBS DISCH >30 MIN Diagnoses HFrEF (heart failure with reduced ejection fraction) I50.20 Chronic kidney disease, stage IV (severe) N18.4 UTI (urinary tract infection) N39.0 Paroxysmal ventricular tachycardia I47.29 Aortic stenosis I35.0 PAF (paroxysmal atrial fibrillation) I48.0 Demand ischemia I24.89 CAD (coronary artery disease) I25.10 CLL (chronic lymphocytic leukemia) C91.90
[2024-05-24 15:07] VITALS: PULSE 65
== END 2024-05-24 16:36 | DRG 276 ==
LOC: ED 10:04 → 2W 12:56 → SUATTDRO 12:56 → 2W 14:39 → 2E 05-10 18:49 → 2S 05-22 07:07
PROC: EPB.ICD (2024-05-12 15:30)
DX: Z79.899 Other long term (current) drug therapy; Z79.51 Long term (current) use of inhaled steroids; I25.10 Atherosclerotic heart disease of native coronary artery without angina pectoris; K21.9 Gastro-esophageal reflux disease without esophagitis; E87.1 Hypo-osmolality and hyponatremia; F32.A Depression, unspecified; I50.23 Acute on chronic systolic (congestive) heart failure; F41.9 Anxiety disorder, unspecified; J96.01 Acute respiratory failure with hypoxia; N18.4 Chronic kidney disease, stage 4 (severe); N17.9 Acute kidney failure, unspecified; Z88.0 Allergy status to penicillin; B96.1 Klebsiella pneumoniae [K. pneumoniae] as the cause of diseases classified elsewhere; Z95.5 Presence of coronary angioplasty implant and graft; C91.10 Chronic lymphocytic leukemia of B-cell type not having achieved remission; N39.0 Urinary tract infection, site not specified; I47.20 Ventricular tachycardia, unspecified; I44.0 Atrioventricular block, first degree; I13.0 Hypertensive heart and chronic kidney disease with heart failure and stage 1 through stage 4 chronic kidney disease, or unspecified chronic kidney disease; D32.9 Benign neoplasm of meninges, unspecified; Z79.01 Long term (current) use of anticoagulants; I95.9 Hypotension, unspecified; Z88.2 Allergy status to sulfonamides; R94.6 Abnormal results of thyroid function studies; E11.22 Type 2 diabetes mellitus with diabetic chronic kidney disease; Z79.02 Long term (current) use of antithrombotics/antiplatelets; E78.5 Hyperlipidemia, unspecified; K59.00 Constipation, unspecified; Z79.52 Long term (current) use of systemic steroids; E87.20 Acidosis, unspecified; D50.9 Iron deficiency anemia, unspecified; I08.0 Rheumatic disorders of both mitral and aortic valves; B96.20 Unspecified Escherichia coli [E. coli] as the cause of diseases classified elsewhere; I24.89 Other forms of acute ischemic heart disease; Z86.73 Personal history of transient ischemic attack (TIA), and cerebral infarction without residual deficits; I48.0 Paroxysmal atrial fibrillation

== ENCOUNTER 2024-05-25 13:10 | Inpatient (IN) ==
--- NOTE | 2024-05-25 14:14 | Emergency Department Note ---
Impression & Plan CHF (congestive heart failure), Weakness, Chronic kidney disease, stage IV (severe), Hypoxia, Elevated troponin I level ED Provider Note NAME: WALE POLLARD AGE: 78 SEX: F : 1945 ARRIVES VIA: Walk-In INFORMANT: Patient, the patient's daughter ED PROVIDER(S): Rigo Holden DO CHIEF COMPLAINT: Shortness of breath HPI: The patient is an 78-year-old female who has a history of renal failure who recently started dialysis. The patient has a complicated medical history including aortic stenosis. She has a history of heart failure with reduced ejection fraction. The patient is felt to be in need of dialysis. She was discharged recently from our facility and started following up with dialysis. She started having problems breathing today. She became very hypoxic and was placed on supplemental oxygen. The patient himself denies having any chest pain. She does complain of lower extremity swelling. She recently had a defibrillator pacer placed because of an episode of torsades that occurred in the hospital. ROS: See above HPI for pertinent positives & negatives. A total of 10 systems reviewed and were otherwise negative. PAST MEDICAL HISTORY: See Below PAST SURGICAL HISTORY: See Below FAMILY HISTORY: See Below SOCIAL HISTORY: See Below HOME MEDICATIONS: See Below ALLERGIES: See Below VITALS: See Below PHYSICAL EXAMINATION: GENERAL: The patient is awake and alert. The patient is somewhat anxious appearing. EYES: The conjunctivae are clear. The pupils are round and reactive. EARS, NOSE, MOUTH AND THROAT: The nose is without any evidence of any deformity. NECK: The neck is nontender and supple. RESPIRATORY: Diminished breath sounds are noted throughout. There was tachypnea as well as conversational dyspnea. CARDIOVASCULAR: Irregular heart sounds were noted to auscultation. Systolic murmur was suggested. GASTROINTESTINAL: The abdomen is soft. Abdomen is nontender. MUSCULOSKELETAL/EXTREMITIES: There is no evidence of gross deformity full range of motion is noted in the hips and shoulders. SKIN: Pedal edema was noted bilaterally. Skin was warm and dry. NEUROLOGIC: Patient is awake alert and oriented x3 MEDICAL DECISION MAKING: The patient is an 78-year-old female who presented to the emergency department for an evaluation of difficulty breathing. The patient has been in our facility for a long time and was recently discharged. She was following up with dialysis but appears to have significant hypoxia and pulmonary edema at this time. I discussed the patient's condition with the relief man. We will try to get the patient inpatient dialysis as soon as possible. For this reason I discussed her condition with the [facility] so she could be evaluated as soon as possible. The patient was found to have pulmonary edema on chest x-ray. Her laboratory studies would reflect some degree of pulmonary edema as well. She was found in the elevated troponin. She also has an elevated white blood cell count which does not appear to be new for her. The patient was placed on supplemental oxygen with significant improvement of her symptoms. Triage Nursing notes reviewed. Prior medical records reviewed Vital Signs: reviewed and remarkable for hypoxia Differential diagnosis: Reactive airway disease, pneumonia, pneumothorax, COPD, CHF, infections, cardiac ischemia, pulmonary embolism, musculoskeletal, gastrointestinal, as well as other pathologies. ER treatment provided: See below Diagnostics interpreted by me: ECG: EKG was obtained in the emergency department. My interpretation is atrial paced rhythm at 68 bpm. Underlying atrial fibrillation versus ectopic atrial beats were noted. There was nonspecific ST segment abnormalities noted. This was compared to a tracing from May 12, 2004. The pacer is new otherwise no specific changes were noted. Cardiac Monitoring: An order was placed for continuous cardiac monitoring. The monitor shows a rate of 66 bpm with atrial fibrillation. Laboratory studies: As stated above and show below. Imaging studies: See below. Radiographic imaging was reviewed by myself Consultation(s): I discussed this case with Dr. Horn who is the patient's primary relief man. I discussed this case with Dr. Huitron who is on for the [facility] group who is familiar with the patient's case. ED COURSE: Procedures: none Critical Care: I have personally spent greater than 45 minutes of critical care time in the direct management of this patient. This includes bedside care, interpretation of diagnostic studies, and testing, discussion with consultants, patient, and family members, and other required patient management activities. This 45 minutes is in excess of all separately billable procedures. Past Med/Surg History Problem List (Updated 05/25/24 @ 16:13 by Rigo Holden DO) Elevated troponin I level (Acute) Hypoxia (Acute) Metabolic acidosis Hyponatremia UTI (urinary tract infection) Anemia ICD (implantable cardioverter-defibrillator) in place Paroxysmal ventricular tachycardia S/P coronary artery stent placement Mitral regurgitation Aortic stenosis HFrEF (heart failure with reduced ejection fraction) Acute kidney injury Chronic kidney disease, stage IV (severe) (Acute) Demand ischemia Acute on chronic systolic (congestive) heart failure Nausea (Acute) Diarrhea (Acute) Chronic kidney insufficiency (Acute) CHF (congestive heart failure) (Acute) Weakness (Acute) Cough PND (post-nasal drip) DNS (deviated nasal septum) Otalgia of both ears Acute bronchitis Toxic encephalopathy Radicular low back pain Spinal stenosis Pulmonary edema (Acute) Anxiety Chronic cough Physician orders for life-sustaining treatment (POLST) form indicates patient wish for full code resuscitation status CKD (chronic kidney disease) stage 3, GFR 30-59 ml/min Compression fracture GERD (gastroesophageal reflux disease) (Chronic) Dyslipidemia (Chronic) CAD (coronary artery disease) Chronic combined systolic and diastolic CHF (congestive heart failure) Left ventricular dysfunction Medical History 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 detention 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 CLL (chronic lymphocytic leukemia) Ischemic cardiomyopathy PAF (paroxysmal atrial fibrillation) Diabetes mellitus, type 2 Depression Hypertension Seasonal allergies Cerebral artery occlusion History of CHF (congestive heart failure) Osteoarthritis of right knee GEL SHOT, MOST RECENT INJECTION FEBRUARY 2021 DM2 (diabetes mellitus, type 2) History of colon polyps Nausea and vomiting after administration of anesthetic agent Osteoarthritis Leukemia just monitoring On anticoagulant therapy Hearing deficit Stroke x3 ?--2010/2011--no neurologist, left arm weakness, uses cane to ambulate Hyperlipidemia Atrial fibrillation DX 2018 ? DR KENNEDY - NO HX CARDIOVERSION Myocardial Infarction 2010 & 2019...STENT X 1 Asthma LAST USE LAST WEEK Surgical History Hx of cataract surgery B/L H/O heart artery stent HX [place] , STENT X1 2019 History of phacoemulsification of cataract of both eyes with intraocular lens implantation History of dilatation and curettage x3 History of total left knee replacement (TKR) History of right breast biopsy x3--benign History of laparoscopy History of bilateral breast reduction surgery History of colonoscopy Family History Mother Family history of diabetes mellitus Myocardial infarction Family/Other Family history of diabetes mellitus cousin Aunt Breast cancer Father Myocardial infarction Stroke Other No family history of adverse response to anesthesia Denies family history of Ovarian cancer Prostate cancer Colorectal cancer Uterine cancer Social History Smoking Status: Never smoker Tobacco Type: Cigarettes Age Started Using Tobacco: 53; Age Quit Using Tobacco: 62; Cigarettes Per Day: HX OCCASSIONAL CIGARETTE 15 YRS AGO; Second Hand Exposure: No; Do You Dip or Chew Tobacco: No; Hx Alcohol Use: No Hx Substance Use: No Preferred Language: Trinidadian Communication Ability: Effective Visual Impairment: No Limitations Hearing Ability: Use of Hearing Aid Supervisor Evaporator Required: No Beliefs That Will Affect Care: None marital status: / Current Living Situation: Family Current Living Situation Comment: lives with daughter current occupational status: retired current occupation: worked for [employer] Feels Safe at Home: Yes Childhood Exposure to Second-Hand Smoke: Yes Diet: low salt Diet Comment: low sodium Dental Care, Regularly: Yes Physical Activity Frequency: Does not Exercise Seatbelt Use: always Sunscreen Use: No Assistive Devices: Walker and Wheelchair Allergies Allergies Allergy/AdvReac Type Severity Reaction Status Date / Time bee venom protein (honey bee) Allergy Severe Anaphylaxis Verified 05/25/24 15:24 Penicillins Allergy Severe Rash, Verified 05/25/24 15:24 anaphylaxis Sulfa (Sulfonamide Allergy Severe Rash, Verified 05/25/24 15:24 Antibiotics) anaphylaxis Home Meds Home Medications Medication Instructions Recorded Confirmed acetaminophen 500 mg tablet 1,000 mg PO Q8H PRN Fever Or Pain 05/25/24 05/25/24 (Tylenol Extra Strength) albuterol sulfate 90 mcg/actuation 1 puff inhalation Q6H PRN 05/25/24 05/25/24 aerosol inhaler Shortness Of Breath Or Wheezing amiodarone 200 mg tablet 200 mg PO AMHS 05/25/24 05/25/24 cholecalciferol (vitamin D3) 50 2,000 unit PO HS 05/25/24 05/25/24 mcg (2,000 unit) tablet clopidogrel 75 mg tablet 75 mg PO HS 05/25/24 05/25/24 fexofenadine 180 mg tablet 180 mg PO HS 05/25/24 05/25/24 folic acid 1 mg tablet 1 mg PO HS 05/25/24 05/25/24 mecobalamin (vitamin B12) 1,000 1,000 mcg sublingual HS 05/25/24 05/25/24 mcg disintegrating tablet,sublingual metoprolol succinate 25 mg 25 mg PO AMHS 05/25/24 05/25/24 tablet,extended release 24 hr pantoprazole 40 mg tablet,delayed 40 mg PO HS 05/25/24 05/25/24 release sertraline 100 mg tablet (Zoloft) 100 mg PO HS 05/25/24 05/25/24 Previous Rx's Medication Instructions Recorded atorvastatin 80 mg tablet (Lipitor) 80 mg PO HS #90 tabs 08/25/23 lancets 31 gauge (Comfort Touch #100 ea 08/25/23 Ultra Thin Lancets) nitroglycerin 0.4 mg sublingual 0.4 mg sublingual UD PRN Chest 08/25/23 tablet (Nitrostat) Pain #25 tabs blood sugar diagnostic (OneTouch #100 ea 09/01/23 Verio test strips) fluticasone propionate 50 1 spray intranasal QAM #48 mL 12/02/23 mcg/actuation nasal spray,suspension apixaban 2.5 mg tablet (Eliquis) 2.5 mg PO BID #60 tabs 05/24/24 polyethylene glycol 3350 17 17 g PO DAILY PRN constipation 05/24/24 gram/dose oral powder (Miralax) #119 grams Results & Data (ED) Vital Signs Vital Signs - 24 hr 05/25/24 13:55 05/25/24 13:55 05/25/24 14:01 Temperature 36.8 C Temperature Source Oral Pulse Rate 66 Pulse Rhythm Respiratory Rate 16 Respiratory Effort / Characteristics Non-Labored Respiratory Depth Normal Normal Respiratory Pattern Regular Blood Pressure 113/66 Blood Pressure Mean 81 Pulse Oximetry 95 84 L Oxygen Delivery Method Nasal Cannula Nasal Cannula Nasal Cannula Oxygen Flow Rate 5 5 0 Sepsis Recent Fever Within 48 Hours No Sepsis New/Unexplained Change in Mental Status N/A Sepsis Action Taken by Nursing No Action Required Oxygen Flow Rate - Titration 5 Pulse Oximetry Post Tiitration 95 05/25/24 14:01 05/25/24 14:28 Temperature Temperature Source Pulse Rate 69 66 Pulse Rhythm Regular Respiratory Rate 18 Respiratory Effort / Characteristics Respiratory Depth Respiratory Pattern Blood Pressure Blood Pressure Mean Pulse Oximetry 95 Oxygen Delivery Method Room Air Oxygen Flow Rate Sepsis Recent Fever Within 48 Hours Sepsis New/Unexplained Change in Mental Status Sepsis Action Taken by Nursing Oxygen Flow Rate - Titration Pulse Oximetry Post Tiitration Home Medications Current Medication List: was personally reviewed by pr Laboratory Data Attestation: I reviewed the patient's lab results. 05/25/24 13:47 05/25/24 13:47 Lab Results 05/25/24 05/25/24 Range/Units 13:47 14:28 WBC 21.14 H (4.8-10.8) K/ul RBC 3.14 L (4.20-5.40) M/uL Hgb 9.8 L (12.0-16.0) g/dl Hct 30.6 L (37.0-47.0) % MCV 97.5 (80.0-100.0) fL MCH 31.2 (25.0-34.0) pg MCHC 32.0 (32.0-36.0) g/dL RDW Std Deviation 59.0 H (36.4-46.3) fL RDW Coeff of Nino 19.1 H (11.5-14.5) % Plt Count 236 (130-400) K/uL MPV 10.2 (9.4-12.4) fL Immature Gran % (Auto) 0.6 % Neut % (Auto) 48.0 % Lymph % (Auto) 45.8 % [place] % (Auto) 4.8 % Eos % (Auto) 0.4 % Baso % (Auto) 0.4 % Neut # (Auto) 10.13 H (1.40-6.50) K/uL Lymph # (Auto) 9.69 H (1.20-3.40) K/uL [place] # (Auto) 1.02 H (0.11-0.59) K/uL Eos # (Auto) 0.09 (0.00-0.50) K/uL Baso # (Auto) 0.08 (0.00-0.20) K/uL Immature Gran # (Auto) 0.13 (0.01-0.20) K/uL Absolute Nucleated RBC 0.18 H (0.00-0.12) K/uL Nucleated RBC % (auto) 0.9 % Polychromasia 1+ PT 13.5 H (9.0-12.0) Seconds INR 1.3 H (0.9-1.1) APTT 36 H (21-31) Seconds PTT Ratio 1.3 Sodium 135 L (136-145) mmol/L Potassium 4.0 (3.5-5.1) mmol/L Chloride 101 (98-107) mmol/L Carbon Dioxide 22 (21-32) mmol/L Anion Gap 12 H (3-11) BUN 30 H (6-23) mg/dl Creatinine 2.93 H D (0.6-1.2) mg/dl Est Cr Clr Drug Dosing 17.4 ml/min Est GFR ( Amer) 16.8 ml/min Est GFR (Non-Af Amer) 14.5 ml/min BUN/Creatinine Ratio 10.2 (10-20) Glucose 135 H (70-99(Fasting)) mg/dl Calcium 8.7 (8.6-10.3) mg/dl Magnesium 2.1 (1.7-2.4) mg/dl Total Bilirubin 0.7 (0.2-1.0) mg/dl AST 39 (13-39) U/L ALT 130 H (7-52) U/L Alkaline Phosphatase 316 H (34-104) U/L Troponin I High Sens 286.4 H* (0-14) pg/ml B-Natriuretic Peptide > 4700 H (0-100) pg/ml Total Protein 5.7 L (6.0-8.3) gm/dl Albumin 3.4 (3.4-5.0) gm/dl Globulin 2.3 L (2.5-4.0) gm/dl Albumin/Globulin Ratio 1.5 (0.9-2) SARS-CoV-2 (PCR) NEGATIVE (Negative) Influenza Type A (PCR) Negative (Neg) Influenza Type B (PCR) Negative (Neg) RSV (RT-PCR) Negative (Neg) Imaging Data Attestation: I personally reviewed and interpreted this imaging study as follows: My Impression: 1 view chest x-ray was obtained in the emergency department. My interpretation is no free air, pulmonary edema was noted with cardiomegaly, final report below. Radiologist's Impression: Chest X-Ray 05/25/24 13:55 XR chest 1V portable CLINICAL HISTORY: Dyspnea. COMPARISON STUDY: Chest CT February 12, 2024. Chest radiograph May 16, 2024. FINDINGS: Dual lumen right internal jugular central venous catheter and left subclavian pacer/AICD remain in place. Cardiomegaly is unchanged. Pulmonary edema has progressed. Small bilateral pleural effusions have increased. There is no pneumothorax. IMPRESSION: Cardiomegaly with progression of moderate interstitial pulmonary edema and small bilateral pleural effusions with associated bibasilar opacities. ACT 112: Negative or not required by law. Electronically signed by: Giovanni Dixon M.D. 05/25/2024 2:50 PM Discharge Plan Visit Data Chief Complaint: Shortness of Breath/Dyspnea Stated Complaint: shortness of breath ED Provider: Rigo Holden Discharge Problem: CHF (congestive heart failure), Weakness, Chronic kidney disease, stage IV (severe), Hypoxia, Elevated troponin I level Patient Disposition: Being Evaluated by Hospitalist Discharge Instructions Interventions: ED Discharge Assessment Last Done: 05/25/24 16:04 Forms Stand Alone Forms: My [facility] [employer] Prescriptions Prescriptions: No Action atorvastatin [Lipitor] 80 mg tablet 80 mg PO HS Qty: 90 3RF (DME) Comfort Touch Ult Thin Lancets 31 gauge misc See Rx Instructions .Route Qty: 100 3RF Rx Instructions: pt tests every other day nitroglycerin [Nitrostat] 0.4 mg tablet, sublingual 0.4 mg sublingual UD PRN (Reason: Chest Pain) Qty: 25 1RF Rx Instructions: 1 tablet every 5 minutes as needed for chest pain x 3 doses (DME) OneTouch Verio test strips Strip See Rx Instructions .ROUTE .MEDSUPPLY Qty: 100 1RF Rx Instructions: check once daily Dx code: E11.9 fluticasone propionate 50 mcg/actuation spray,suspension 1 spray intranasal QAM Qty: 48 1RF amiodarone 200 mg tablet 200 mg PO AMHS clopidogrel 75 mg tablet 75 mg PO HS acetaminophen [Tylenol Extra Strength] 500 mg tablet 1,000 mg PO Q8H MDD 3g PRN (Reason: Fever Or Pain) albuterol sulfate 90 mcg/actuation HFA aerosol inhaler 1 puff inhalation Q6H PRN (Reason: Shortness Of Breath Or Wheezing) Rx Instructions: INHALE 1 PUFF BY MOUTH EVERY 6 HOURS NEEDED FOR SHORTNESS OF BREATH cholecalciferol (vitamin D3) 50 mcg (2,000 unit) tablet 2,000 unit PO HS fexofenadine 180 mg tablet 180 mg PO HS folic acid 1 mg tablet 1 mg PO HS pantoprazole 40 mg tablet,delayed release (DR/EC) 40 mg PO HS metoprolol succinate 25 mg tablet extended release 24 hr 25 mg PO AMHS mecobalamin (vitamin B12) 1,000 mcg tablet,disintegrating 1,000 mcg sublingual HS Rx Instructions: place tablet under tongue and allow to dissolve for at least30 secs before swallowing sertraline [Zoloft] 100 mg tablet 100 mg PO HS Eliquis 2.5 mg Tablet 2.5 mg PO BID Qty: 60 0RF polyethylene glycol 3350 [Miralax] 17 gram/dose powder 17 g PO DAILY PRN (Reason: constipation) Qty: 119 0RF Referrals Referrals: Arlen Frederick MD [Physician] - Discharge Problem: CHF (congestive heart failure) Qualifiers: Heart failure type: unspecified Heart failure chronicity: unspecified Qualified Code(s): I50.9 - Heart failure, unspecified
[2024-05-25 14:32] LABS: Hematocrit (blood only) 30.6 % (37.0-47.0); Hemoglobin 9.8 g/dl (12.0-16.0); Mean Corpuscular Hemoglobin 31.2 pg (25.0-34.0); Mean Corpuscular Volume 97.5 fL (80.0-100.0); Mean Platelet Volume 10.2 fL (9.4-12.4); Nucleated RBC # (auto) 0.18 K/uL (0.00-0.12); Nucleated RBC % (auto) 0.9 %; Platelet Count 236 K/uL (130-400); RDW Coefficient of Variation 19.1 % (11.5-14.5); Red Blood Count 3.14 M/uL (4.20-5.40); White Blood Count 21.14 K/ul (4.8-10.8)
--- NOTE | 2024-05-25 14:43 | History & Physical Report ---
Date of Service May 25, 2024 Assessment & Plan (1) HFrEF (heart failure with reduced ejection fraction): Plan: Presents again with acute on chronic HFrEF/flash pulm edema despite just having dialysis yesterday and was stable for days awaiting rehab placement during prior admission She did go back into Afib but rates controlled in 80-90s on day of discharge 05/24 but perhaps this caused some backup of fluid into the lungs? BNP significantly elevated, chest x-ray appears worse than previous with pulmonary edema and effusions Was initiated on hemodialysis last admission for volume management and oliguria in setting of ALLAN Last admission w/ Echo w/ progression to severe aortic stenosis, moderate to severe MR, EF 30-35%, positive wall motion abnormalities. With H/o CAD- not a candidate for CABG when evaluated several years ago Has ICD in place Cardiology and Nephrology consults placed Continue rate control of A-fib- continue Toprol-XL 25 Mg p.o. twice daily Entresto, spironolactone, and SGLT 2 not able to be given due to poor renal function. Follow daily weights, strict I's and O's, fluid restrict to 1200mL, hemodialysis to manage volume status-going for urgent HD now Needs eval for TAVR after stabilized and discharged (2) Hypoxia: Plan: 2/2 flash pulm edema as above going for HD wean off O2 as able (3) Chronic kidney disease, stage IV (severe): Plan: With ALLAN in the setting of CKD stage IV. She began hemodialysis on May 17 and had several dialysis sessions, the most recent on 05/24 prior to discharge from last admission. Going for urgent dialysis now Has tunneled catheter in place Renally dose medications, avoid nephrotoxins Appreciate nephrology consultation (4) Paroxysmal ventricular tachycardia: Plan: Occurred on May 10 during last admission. ICD was placed on May 12. Surgical site is unremarkable. Appreciate cardiology consultation. Amiodarone uptitrated on May 20 due to recurrent runs of nonsustained V. tach. Continue amiodarone 200 Mg p.o. twice daily No lifting LUE above level of shoulder for 5 more weeks Consult cardiology (5) Aortic stenosis: Plan: Moderate-severe as seen on cardiac echo. Needs outpatient evaluation for TAVR which will be arranged by her primary plant safety leader. Avoid overdiuresis and low blood pressure (6) CAD (coronary artery disease): Plan: With elevated troponin on admission in the 200s, no chest pain but also with mildly elevated LFTs-prep she had a hypotensive event? In the setting of aortic stenosis. No evidence of syncope by history. Trend serial troponins Consult cardiology Continue Plavix, metoprolol, atorvastatin (7) GERD (gastroesophageal reflux disease): Plan: Continue PPI (8) DM2 (diabetes mellitus, type 2): Plan: Most recent hemoglobin A1c only 6.3% She is not on medications for this as an outpatient No need for insulin checks (9) PAF (paroxysmal atrial fibrillation): Plan: She has paroxysms of atrial fibrillation, the most recent on 05/24. She is currently in a sinus rhythm here with rates in the 60s, paced at times Continue amiodarone, renally dosed Eliquis Monitor on telemetry (10) CLL (chronic lymphocytic leukemia): Plan: With leukocytosis secondary to CLL and stress Iron deficiency noted. She has received parenteral iron replacement last admission Follow with hematology as an outpatient Follow CBC Plan DVT prophylaxis-Eliquis Disposition-admit to PCU Full code as per discussion with patient with her paid advocate at her bedside History of Present Illness Chief Complaint: Shortness of breath Primary Care Provider: Roddy Woodruff III, MD This patient is an 78-year-old female who was just discharged from the hospital by myself yesterday after a prolonged hospitalization for acute kidney injury on CKD stage IV, acute on chronic HFrEF, sustained ventricular tachycardia s/p ICD placement, severe aortic stenosis, moderate-severe mitral regurgitation, CAD, paroxysmal atrial fibrillation, and CLL who presents from longterm facility with acute onset of shortness of breath and tachypnea this morning. She was noted to be hypoxic at the long term and placed on 2 L nasal cannula. Her vital signs were otherwise normal. She denies any chest pains or lightheadedness, no abdominal pains. She was apparently doing well as per the physician at the long term when she was initially assessed yesterday evening, just like she was when I saw her yesterday morning. She did have some atrial fibrillation yesterday before she left the hospital with rates in the 80s-90s, but is currently in a sinus/paced rhythm again. She also received hemodialysis yesterday prior to discharge. Chest x-ray here shows worsening pulmonary edema and pleural effusions, she is requiring 5 L nasal cannula to keep pulse ox greater than 92%. She will be admitted for urgent dialysis I discussed her care with nephrology and cardiology at the time of admission Allergies Allergy/AdvReac Type Severity Reaction Status Date / Time bee venom protein (honey bee) Allergy Severe Anaphylaxis Verified 05/25/24 15:24 Penicillins Allergy Severe Rash, Verified 05/25/24 15:24 anaphylaxis Sulfa (Sulfonamide Allergy Severe Rash, Verified 05/25/24 15:24 Antibiotics) anaphylaxis Home Medications Medication Instructions Recorded Confirmed Type atorvastatin 80 mg tablet (Lipitor) 80 mg PO HS #90 tabs 08/25/23 05/25/24 Rx lancets 31 gauge (Comfort Touch #100 ea 08/25/23 05/25/24 Rx Ultra Thin Lancets) nitroglycerin 0.4 mg sublingual 0.4 mg sublingual UD PRN Chest 08/25/23 05/25/24 Rx tablet (Nitrostat) Pain #25 tabs blood sugar diagnostic (OneTouch #100 ea 09/01/23 05/25/24 Rx Verio test strips) fluticasone propionate 50 1 spray intranasal QAM #48 mL 12/02/23 05/25/24 Rx mcg/actuation nasal spray,suspension apixaban 2.5 mg tablet (Eliquis) 2.5 mg PO BID #60 tabs 05/24/24 05/25/24 Rx polyethylene glycol 3350 17 17 g PO DAILY PRN constipation 05/24/24 05/25/24 Rx gram/dose oral powder (Miralax) #119 grams acetaminophen 500 mg tablet 1,000 mg PO Q8H PRN Fever Or Pain 05/25/24 05/25/24 History (Tylenol Extra Strength) albuterol sulfate 90 mcg/actuation 1 puff inhalation Q6H PRN 05/25/24 05/25/24 History aerosol inhaler Shortness Of Breath Or Wheezing amiodarone 200 mg tablet 200 mg PO AMHS 05/25/24 05/25/24 History cholecalciferol (vitamin D3) 50 2,000 unit PO HS 05/25/24 05/25/24 History mcg (2,000 unit) tablet clopidogrel 75 mg tablet 75 mg PO HS 05/25/24 05/25/24 History fexofenadine 180 mg tablet 180 mg PO HS 05/25/24 05/25/24 History folic acid 1 mg tablet 1 mg PO HS 05/25/24 05/25/24 History mecobalamin (vitamin B12) 1,000 1,000 mcg sublingual HS 05/25/24 05/25/24 History mcg disintegrating tablet,sublingual metoprolol succinate 25 mg 25 mg PO AMHS 05/25/24 05/25/24 History tablet,extended release 24 hr pantoprazole 40 mg tablet,delayed 40 mg PO HS 05/25/24 05/25/24 History release sertraline 100 mg tablet (Zoloft) 100 mg PO HS 05/25/24 05/25/24 History Past Med/Surg History Problem List Elevated troponin I level (Acute) Hypoxia (Acute) Metabolic acidosis Hyponatremia UTI (urinary tract infection) Anemia ICD (implantable cardioverter-defibrillator) in place Paroxysmal ventricular tachycardia S/P coronary artery stent placement Mitral regurgitation Aortic stenosis HFrEF (heart failure with reduced ejection fraction) Acute kidney injury Chronic kidney disease, stage IV (severe) (Acute) Demand ischemia Acute on chronic systolic (congestive) heart failure Nausea (Acute) Diarrhea (Acute) Chronic kidney insufficiency (Acute) CHF (congestive heart failure) (Acute) Weakness (Acute) Cough PND (post-nasal drip) DNS (deviated nasal septum) Otalgia of both ears Acute bronchitis Toxic encephalopathy Radicular low back pain Spinal stenosis Pulmonary edema (Acute) Anxiety Chronic cough Physician orders for life-sustaining treatment (POLST) form indicates patient wish for full code resuscitation status CKD (chronic kidney disease) stage 3, GFR 30-59 ml/min Compression fracture GERD (gastroesophageal reflux disease) (Chronic) Dyslipidemia (Chronic) CAD (coronary artery disease) Chronic combined systolic and diastolic CHF (congestive heart failure) Left ventricular dysfunction Medical History 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 CLL (chronic lymphocytic leukemia) Ischemic cardiomyopathy PAF (paroxysmal atrial fibrillation) Diabetes mellitus, type 2 Depression Hypertension Seasonal allergies Cerebral artery occlusion History of CHF (congestive heart failure) Osteoarthritis of right knee GEL SHOT, MOST RECENT INJECTION FEBRUARY 2021 DM2 (diabetes mellitus, type 2) History of colon polyps Nausea and vomiting after administration of anesthetic agent Osteoarthritis Leukemia just monitoring On anticoagulant therapy Hearing deficit Stroke x3 ?--2011--no neurologist, left arm weakness, uses cane to ambulate Hyperlipidemia Atrial fibrillation DX 2018 ? DR KENNEDY - NO HX CARDIOVERSION Myocardial Infarction 2010 & 2019...STENT X 1 Asthma LAST USE LAST WEEK Surgical History Hx of cataract surgery B/L H/O heart artery stent HX HI , STENT X1 2019 History of phacoemulsification of cataract of both eyes with intraocular lens implantation History of dilatation and curettage x3 History of total left knee replacement (TKR) History of right breast biopsy x3--benign History of laparoscopy History of bilateral breast reduction surgery History of colonoscopy Family History Mother Family history of diabetes mellitus Myocardial infarction Family/Other Family history of diabetes mellitus cousin Aunt Breast cancer Father Myocardial infarction Stroke Other No family history of adverse response to anesthesia Denies family history of Ovarian cancer Prostate cancer Colorectal cancer Uterine cancer Social History Smoking Status: Never smoker Tobacco Type: Cigarettes Age Started Using Tobacco: 53; Age Quit Using Tobacco: 62; Cigarettes Per Day: HX OCCASSIONAL CIGARETTE 15 YRS AGO; Second Hand Exposure: No; Do You Dip or Chew Tobacco: No; Hx Alcohol Use: No Hx Substance Use: No Preferred Language: Turkmen Communication Ability: Effective Visual Impairment: No Limitations Hearing Ability: Use of Hearing Aid Jig Grinder Required: No Beliefs That Will Affect Care: None marital status: / Current Living Situation: Family Current Living Situation Comment: lives with daughter current occupational status: retired current occupation: worked for [employer] center Feels Safe at Home: Yes Childhood Exposure to Second-Hand Smoke: Yes Diet: low salt Diet Comment: low sodium Dental Care, Regularly: Yes Physical Activity Frequency: Does not Exercise Seatbelt Use: always Sunscreen Use: No Assistive Devices: Walker and Wheelchair Review of Systems Review of Systems: All systems reviewed & are unremarkable except as noted in HPI & below Physical Exam Constitutional: WD/WN, vitals as above Neck: trachea midline, no thyromegaly Respiratory: able to speak in complete sentences (With some tachypnea) Auscultation: + crackles (Basilar bilateral); no rhonchi and no wheezes Cardiovascular: Rate/Rhythm: regular rate and regular rhythm Heart Sounds: + murmur (3/6 DEBRA at the RUSB) Extremities: + edema (1+ pitting edema to the knees bilaterally) Gastrointestinal (Abdomen): normal bowel sounds, soft, nontender, no hepatosplenomegaly Musculoskeletal: Extremities: no cyanosis and no clubbing Skin: no rashes, warm and dry Neurologic: moves all extremities and awake; no focal motor deficits Psychiatric: A+Ox3, euthymic affect Results & Data Results & Data Vital Signs (Past 12 Hours) Vital Signs Temp Pulse Resp BP Pulse Ox O2 Del Method O2 Flow Rate 05/25/24 14:28 66 05/25/24 14:01 69 18 95 Room Air 05/25/24 14:01 84 L Nasal Cannula 0 05/25/24 13:55 36.8 C 66 16 113/66 95 Nasal Cannula 5 05/25/24 13:55 Nasal Cannula 5 Laboratory Results CBC, coags, BMP, magnesium, LFTs, troponin, BNP, COVID/flu/RSV reviewed ECG Additional Comments: EKG with paced rhythm Code Status & VTE Plan Code Status Full code VTE Prophylaxis Plan VTE Prophylaxis will be ordered: Yes PG Care Time/CCT Total # of Minutes Spent Total Time Spent with Patient: Total time spent is greater than 50% in coordination of care (as documented) at patient's floor/unit and/or counseling patient: Coding Level of Care Code 28203 INT INP/OBS CARE 3/75MIN Diagnoses HFrEF (heart failure with reduced ejection fraction) I50.20 Hypoxia R09.02 Chronic kidney disease, stage IV (severe) N18.4 Paroxysmal ventricular tachycardia I47.29 Aortic stenosis I35.0 CAD (coronary artery disease) I25.10 GERD (gastroesophageal reflux disease) K21.9 DM2 (diabetes mellitus, type 2) E11.9 PAF (paroxysmal atrial fibrillation) I48.0 CLL (chronic lymphocytic leukemia) C91.90
--- NOTE | 2024-05-25 14:51 | XRay Report ---
XR chest 1V portable CLINICAL HISTORY: Dyspnea. COMPARISON STUDY: Chest CT February 12, 2024. Chest radiograph May 16, 2024. FINDINGS: Dual lumen right internal jugular central venous catheter and left subclavian pacer/AICD re main in place. Cardiomegaly is unchanged. Pulmonary edema has progressed. Small bilateral pleural eff usions have increased. There is no pneumothorax. IMPRESSION: Cardiomegaly with progression of moderate interstitial pulmonary edema and small bilater al pleural effusions with associated bibasilar opacities. ACT 112: Negative or not required by law. Electronically signed by: Giovanni Dixon M.D. 05/25/2024 2:50 PM
[2024-05-25 14:52] LABS: Albumin Globulin Ratio 1.5 (0.9-2); Albumin Level 3.4 gm/dl (3.4-5.0); BUN Creatinine Ratio 10.2 (10-20); Bilirubin,Total 0.7 mg/dl (0.2-1.0); Calcium 8.7 mg/dl (8.6-10.3); Creatinine Clr Calc Pharmacy 17.4 ml/min; Est GFR (African American) 16.8 ml/min; Est GFR (Non-African American) 14.5 ml/min; Globulin 2.3 gm/dl (2.5-4.0); Magnesium 2.1 mg/dl (1.7-2.4); Total Protein 5.7 gm/dl (6.0-8.3)
[2024-05-25 15:06] LABS: Troponin I High Sensitivity 286.4 pg/ml (0-14)
[2024-05-25 15:24] LABS: Basophils # (auto) 0.08 K/uL (0.00-0.20); Basophils % (auto) 0.4 %; Eosinophils # (auto) 0.09 K/uL (0.00-0.50); Eosinophils % (auto) 0.4 %; Immature Granulocytes # (auto) 0.13 K/uL (0.01-0.20); Immature Granulocytes % (auto) 0.6 %; Lymphocytes # (auto) 9.69 K/uL (1.20-3.40); Lymphocytes % (auto) 45.8 %; Monocytes # (auto) 1.02 K/uL (0.11-0.59); Monocytes % (auto) 4.8 %; Neutrophils # (auto) 10.13 K/uL (1.40-6.50); Polychromasia 1+
[2024-05-25 15:28] LABS: Influenza A virus by PCR Negative (Neg); Influenza B virus by PCR Negative (Neg); RSV by PCR Negative (Neg); SARS CoV2 RNA(COVID-19) Ceph NEGATIVE (Negative)
[2024-05-25 15:31] LABS: INR 1.3 (0.9-1.1); Partial Thromboplastin Ratio 1.3; Partial Thromboplastin Time 36 Seconds (21-31); Prothrombin Time 13.5 Seconds (9.0-12.0)
--- NOTE | 2024-05-25 15:38 | Nephrology Consultation ---
Date of Consultation May 25, 2024 Assessment & Plan (1) Hypoxia: Evaluation demonstrating interstitial pulmonary edema and evidence of CHF. Presents as acute pulmonary edema. Emergent HD was coordinated for UF. Orders for dialysis entered into the EHR and reviewed with the [facility]. The patient was seen and evaluated during treatment. (2) Acute kidney injury: Started HD May 17. ALLAN attributed to CRS and ATN. No signs of renal recovery. Remains oliguric. Tolerating hemodialysis. Outpatient HD has been arranged at [facility] under the care of Dr. Tran. Medications are appropriate for kidney function. (3) Chronic kidney disease, stage IV (severe): Baseline creatinine ~1.8-2.0 mg/dL. Severely atrophic right kidney and moderately atrophic left. CKD attributed to arterionephrosclerosis. (4) CHF (congestive heart failure): Entresto held due to hypotension and ALLAN. MRA avoided due to hypotension and ALLAN. ICD in place. (5) Anemia: History of CLL. Completed IV iron replacement during recent hospitalization. Hemoglobin stable. (6) Aortic stenosis: Cardiology consultation to discuss repair +/- palliative care consultation. (7) PAF (paroxysmal atrial fibrillation): Rate controlled with amiodarone and metoprolol. Anticoagulated with Eliquis. History of Present Illness Reason for Consultation: Urgent dialysis Requesting Physician: Danielle Huitron MD Attending Physician: Danielle Huitron MD History of Present Illness Jere Diaz is an 78 year-old female with an ischemic cardiomyopathy (HFrEF LVEF 30-35%, global hypokinesis to akinesis), coronary artery disease (deemed inoperable during prior cardiac catheterization at [place] in 2019), severe aortic stenosis, moderate to severe mitral regurgitation, paroxysmal atrial fibrillation and paroxysmal ventricular tachycardia (s/p ICD placement following recent episode of VT), and cardiorenal syndrome. She is dialysis dependent due to acute on chronic kidney disease. Jere was admitted to [facility] from May 02 through May 24. She was discharged to [facility] for rehab yesterday. She was previously residing at home but unfortunately not safely due to progressive debility and multiple falls. Jere was admitted to the hospital with acute on chronic HFrEF and overall progressive weakness + decline in functional status. She developed acute on chronic kidney injury during the hospitalization attributed to cardiorenal syndrome with suspected ATN in the setting of hemodynamic instablity due to rapid atrial fibrillation. She required the initiation of hemodialysis on May 17. Jere has been dialyzing via a right IJ TDC which was placed by Dr. Hernández. The catheter has been functioning well. Intradialytic hypotensive and elevated heart rates noted during dialysis treatment but overall no complications with dialysis. The most recent treatment was completed yesterday AM. BP was low/normal. Atrial fibrillation throughout with elevated heart rate. Jere completed 3.5 hours with net UF of 2 L. She was breathing comfortably and oxygenating well when transferred to [facility]. I spoke to Dr. Woodruff at [facility] today. He evaluated the patient yesterday evening and today. No concerning findings were noted yesterday but Jere rapidly decompensated today. She developed acute hypoxia and respiratory distress with evidence of pulmonary edema. She was initially resistant to return to the hospital but ultimately agreeable when goals of care were discussed. Jere was transferred to [facility] ER via EMS. The patient was seen and evaluated in the dialysis unit. Emergent HD coordinated. I discussed the recent history and plan of care with Dr. Holden and Dr. Huitron. Jere remains oliguric. Prior to her recent hospitalization, serum creatinine was 1.75-2.0 mg/dL. She had not followed with a rolfer prior to admission. The right kidney is severely atrophic and left kidney moderately atrophic. Urine has been acellular. She is dialyzing for ALLAN but understands that prognosis for renal recovery is not good. Outpatient HD has been arranged at [facility] under the care of Dr. Tran. Jere was scheduled for her first outpatient treatment tomorrow AM. Medical history is also notable for CLL and chronic anemia with iron deficiency. She remains slightly tachypneic but reports significant improvement in work of breathing with supplemental O2. Jere is oxygenating at 96% on 4L NC. She remains in atrial fibrillation with heart rates in the 60s. She denies chest pain. She states that her heart was racing all night last night. She was uncomfortable and not able to sleep. She felt exhausted this morning and too tired to get out of bed. Appetite has remained very poor. Allergies Allergy/AdvReac Type Severity Reaction Status Date / Time bee venom protein (honey bee) Allergy Severe Anaphylaxis Verified 05/25/24 15:24 Penicillins Allergy Severe Rash, Verified 05/25/24 15:24 anaphylaxis Sulfa (Sulfonamide Allergy Severe Rash, Verified 05/25/24 15:24 Antibiotics) anaphylaxis Home Medications Medication Instructions Recorded Confirmed Type atorvastatin 80 mg tablet (Lipitor) 80 mg PO HS #90 tabs 08/25/23 05/25/24 Rx lancets 31 gauge (Comfort Touch #100 ea 08/25/23 05/25/24 Rx Ultra Thin Lancets) nitroglycerin 0.4 mg sublingual 0.4 mg sublingual UD PRN Chest 08/25/23 05/25/24 Rx tablet (Nitrostat) Pain #25 tabs blood sugar diagnostic (OneTouch #100 ea 09/01/23 05/25/24 Rx Verio test strips) fluticasone propionate 50 1 spray intranasal QAM #48 mL 12/02/23 05/25/24 Rx mcg/actuation nasal spray,suspension apixaban 2.5 mg tablet (Eliquis) 2.5 mg PO BID #60 tabs 05/24/24 05/25/24 Rx polyethylene glycol 3350 17 17 g PO DAILY PRN constipation 05/24/24 05/25/24 Rx gram/dose oral powder (Miralax) #119 grams acetaminophen 500 mg tablet 1,000 mg PO Q8H PRN Fever Or Pain 05/25/24 05/25/24 History (Tylenol Extra Strength) albuterol sulfate 90 mcg/actuation 1 puff inhalation Q6H PRN 05/25/24 05/25/24 History aerosol inhaler Shortness Of Breath Or Wheezing amiodarone 200 mg tablet 200 mg PO AMHS 05/25/24 05/25/24 History cholecalciferol (vitamin D3) 50 2,000 unit PO HS 05/25/24 05/25/24 History mcg (2,000 unit) tablet clopidogrel 75 mg tablet 75 mg PO HS 05/25/24 05/25/24 History fexofenadine 180 mg tablet 180 mg PO HS 05/25/24 05/25/24 History folic acid 1 mg tablet 1 mg PO HS 05/25/24 05/25/24 History mecobalamin (vitamin B12) 1,000 1,000 mcg sublingual HS 05/25/24 05/25/24 History mcg disintegrating tablet,sublingual metoprolol succinate 25 mg 25 mg PO [facility] 05/25/24 05/25/24 History tablet,extended release 24 hr pantoprazole 40 mg tablet,delayed 40 mg PO HS 05/25/24 05/25/24 History release sertraline 100 mg tablet (Zoloft) 100 mg PO HS 05/25/24 05/25/24 History Patient History Medical History 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 [facility] 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 CLL (chronic lymphocytic leukemia) Ischemic cardiomyopathy PAF (paroxysmal atrial fibrillation) Diabetes mellitus, type 2 Depression Hypertension Seasonal allergies Cerebral artery occlusion History of CHF (congestive heart failure) Osteoarthritis of right knee GEL SHOT, MOST RECENT INJECTION FEBRUARY 2021 DM2 (diabetes mellitus, type 2) History of colon polyps Nausea and vomiting after administration of anesthetic agent Osteoarthritis Leukemia just monitoring On anticoagulant therapy Hearing deficit Stroke x3 ?--2010/2011--no neurologist, left arm weakness, uses cane to ambulate Hyperlipidemia Atrial fibrillation DX 2018 ? DR KENNEDY - NO HX CARDIOVERSION Myocardial Infarction 2010 & 2019...STENT X 1 Asthma LAST USE LAST WEEK Surgical History Hx of cataract surgery B/L H/O heart artery stent HX ME , STENT X1 2019 History of phacoemulsification of cataract of both eyes with intraocular lens implantation History of dilatation and curettage x3 History of total left knee replacement (TKR) History of right breast biopsy x3--benign History of laparoscopy History of bilateral breast reduction surgery History of colonoscopy Family History Mother Family history of diabetes mellitus Myocardial infarction Family/Other Family history of diabetes mellitus cousin Aunt Breast cancer Father Myocardial infarction Stroke Other No family history of adverse response to anesthesia Denies family history of Ovarian cancer Prostate cancer Colorectal cancer Uterine cancer Social History Smoking Status: Never smoker Tobacco Type: Cigarettes Age Started Using Tobacco: 53; Age Quit Using Tobacco: 62; Cigarettes Per Day: HX OCCASSIONAL CIGARETTE 15 YRS AGO; Second Hand Exposure: No; Do You Dip or Chew Tobacco: No; Hx Alcohol Use: No Hx Substance Use: No Preferred Language: Thai Communication Ability: Effective Visual Impairment: No Limitations Hearing Ability: Use of Hearing Aid Food Inspector Required: No Beliefs That Will Affect Care: None marital status: / Current Living Situation: Family Current Living Situation Comment: lives with daughter current occupational status: retired current occupation: worked for [employer] Feels Safe at Home: Yes Childhood Exposure to Second-Hand Smoke: Yes Diet: low salt Diet Comment: low sodium Dental Care, Regularly: Yes Physical Activity Frequency: Does not Exercise Seatbelt Use: always Sunscreen Use: No Assistive Devices: Walker and Wheelchair Review of Systems Review of Systems: All systems reviewed & are unremarkable except as noted in HPI & below Constitutional: no fever and no chills Cardiovascular: as per Subjective / HPI and + dyspnea at rest; no chest pain and no palpitations Physical Exam Constitutional: well developed and + frail appearing; no acute distress Eyes: + anicteric sclerae Neck: normal visual inspection and trachea midline Respiratory: + tachypneic; no respiratory distress an d does not use accessory muscles Auscultation: lungs clear to auscultation bilaterally and + diminished lung sounds Cardiovascular: Rate/Rhythm: + irregularly irregular Heart Sounds: normal S1, normal S2 and + murmur Extremities: no edema Chest (Breasts): Chest: + pacemaker (ICD) and + vascular access device or port (RIJ TDC) Musculoskeletal: Extremities: no cyanosis and no clubbing Skin: no jaundice Neurologic: Motor/Sensory: no tremor and no asterixis Psychiatric: Orientation: alert and oriented x 3 Results & Data Vital Signs (Past 12 Hours) Vital Signs Temp Pulse Resp BP Pulse Ox O2 Del Method O2 Flow Rate 05/25/24 14:28 66 05/25/24 14:01 69 18 95 Room Air 05/25/24 14:01 84 L Nasal Cannula 0 05/25/24 13:55 36.8 C 66 16 113/66 95 Nasal Cannula 5 05/25/24 13:55 Nasal Cannula 5 Laboratory Results Laboratory Results - last 24 hr 05/25/24 05/25/24 13:47 14:28 WBC 21.14 H RBC 3.14 L Hgb 9.8 L Hct 30.6 L MCV 97.5 MCH 31.2 MCHC 32.0 RDW Std Deviation 59.0 H RDW Coeff of Nino 19.1 H Plt Count 236 MPV 10.2 Immature Gran % (Auto) 0.6 Neut % (Auto) 48.0 Lymph % (Auto) 45.8 Nance % (Auto) 4.8 Eos % (Auto) 0.4 Baso % (Auto) 0.4 Neut # (Auto) 10.13 H Lymph # (Auto) 9.69 H Nance # (Auto) 1.02 H Eos # (Auto) 0.09 Baso # (Auto) 0.08 Immature Gran # (Auto) 0.13 Absolute Nucleated RBC 0.18 H Nucleated RBC % (auto) 0.9 Polychromasia 1+ PT 13.5 H INR 1.3 H APTT 36 H PTT Ratio 1.3 Sodium 135 L Potassium 4.0 Chloride 101 Carbon Dioxide 22 Anion Gap 12 H BUN 30 H Creatinine 2.93 H D Est Cr Clr Drug Dosing 17.4 Est GFR ( Amer) 16.8 Est GFR (Non-Af Amer) 14.5 BUN/Creatinine Ratio 10.2 Glucose 135 H Calcium 8.7 Magnesium 2.1 Total Bilirubin 0.7 AST 39 ALT 130 H Alkaline Phosphatase 316 H Troponin I High Sens 286.4 H* B-Natriuretic Peptide > 4700 H Total Protein 5.7 L Albumin 3.4 Globulin 2.3 L Albumin/Globulin Ratio 1.5 SARS-CoV-2 (PCR) NEGATIVE Influenza Type A (PCR) Negative Influenza Type B (PCR) Negative RSV (RT-PCR) Negative Diagnostic Findings XR chest 1V portable COMPARISON STUDY: Chest CT February 12, 2024. Chest radiograph May 16, 2024. FINDINGS: Dual lumen right internal jugular central venous catheter and left subclavian pacer/AICD remain in place. Cardiomegaly is unchanged. Pulmonary edema has progressed. Small bilateral pleural effusions have increased. There is no pneumothorax. IMPRESSION: Cardiomegaly with progression of moderate interstitial pulmonary edema and small bilateral pleural effusions with associated bibasilar opacities. PG Care Time/CCT Total # of Minutes Spent Total Time Spent with Patient: Total time spent is greater than 50% in coordination of care (as documented) at patient's floor/unit and/or counseling patient: Coding Level of Care Code 00382 IN/OBS CONSULT LVL 5,80M Diagnoses Hypoxia R09.02 Acute kidney injury N17.9 Chronic kidney disease, stage IV (severe) N18.4 CHF (congestive heart failure) I50.9 Heart failure chronicity: unspecified Heart failure type: unspecified Anemia D64.9 Aortic stenosis I35.0 PAF (paroxysmal atrial fibrillation) I48.0 (4) CHF (congestive heart failure) Heart failure chronicity: unspecified Heart failure type: unspecified Qualified Code(s): I50.9 - Heart failure, unspecified
[2024-05-25] MEDS ORDERED: POLYETHYLENE (MIRALAX) 17 GM PACK PO PRN (16:45)
[2024-05-25] MEDS ORDERED: bisacodyL 5 MG TABEC PO PRN (16:45)
[2024-05-25] MEDS: APIXABAN 2.5 MG TAB PO SCH (20:51)
[2024-05-25] MEDS: ATORVASTATIN 40 MG TAB PO SCH (20:51)
[2024-05-25] MEDS: AMIODARONE 200 MG TAB PO SCH (20:52)
[2024-05-25] MEDS: METOPROLOL SUCC 25MG EXT REL TAB PO SCH (20:53)
[2024-05-26 06:09] LABS: Hemoglobin 9.2 g/dl (12.0-16.0); Mean Corpuscular Hemoglobin 31.4 pg (25.0-34.0); Mean Corpuscular Hgb Conc 31.7 g/dL (32.0-36.0); Mean Platelet Volume 10.1 fL (9.4-12.4); Nucleated RBC # (auto) 0.07 K/uL (0.00-0.12); Nucleated RBC % (auto) 0.5 %; Platelet Count 191 K/uL (130-400); RDW Coefficient of Variation 19.2 % (11.5-14.5); RDW Standard Deviation 60.5 fL (36.4-46.3); Red Blood Count 2.93 M/uL (4.20-5.40); White Blood Count 15.35 K/ul (4.8-10.8)
[2024-05-26 06:28] LABS: Albumin Globulin Ratio 1.6 (0.9-2); Albumin Level 3.1 gm/dl (3.4-5.0); BUN Creatinine Ratio 8.5 (10-20); Bilirubin,Total 0.8 mg/dl (0.2-1.0); Calcium 8.6 mg/dl (8.6-10.3); Creatinine Clr Calc Pharmacy 18.9 ml/min; Est GFR (African American) 18.5 ml/min; Est GFR (Non-African American) 15.9 ml/min; Magnesium 2.1 mg/dl (1.7-2.4); Total Protein 5.1 gm/dl (6.0-8.3)
[2024-05-26 06:35] LABS: Anisocytosis Present; Basophils # (auto) 0.06 K/uL (0.00-0.20); Basophils % (auto) 0.4 %; Eosinophils # (auto) 0.34 K/uL (0.00-0.50); Eosinophils % (auto) 2.2 %; Hypochromasia Present; Immature Granulocytes # (auto) 0.09 K/uL (0.01-0.20); Immature Granulocytes % (auto) 0.6 %; Lymphocytes # (auto) 6.68 K/uL (1.20-3.40); Lymphocytes % (auto) 43.5 %; Monocytes # (auto) 0.89 K/uL (0.11-0.59); Monocytes % (auto) 5.8 %; Neutrophils # (auto) 7.29 K/uL (1.40-6.50); Neutrophils % (auto) 47.5 %
[2024-05-26 06:50] LABS: Troponin I High Sensitivity 244.3 pg/ml (0-14)
[2024-05-26] MEDS: CLOPIDOGREL BISULFATE 75 MG TAB PO SCH (08:07)
[2024-05-26] MEDS: CHOLECALCIFEROL 25 MCG (1000 UNITS) TAB PO SCH (08:07)
[2024-05-26] MEDS: PANTOprazole 40 MG TAB PO SCH (08:08)
[2024-05-26] MEDS: FOLIC ACID 1 MG TAB PO SCH (08:08)
[2024-05-26] MEDS: CYANOCOBALAMIN (B-12) 500 MCG TABLET PO SCH (08:08)
[2024-05-26] MEDS: SERTRALINE HCL 100 MG TABLET PO SCH (08:08)
[2024-05-26] MEDS: FLUTICASONE PROPIONATE NA SPR 16 GM BTL NAE SCH (08:09)
--- NOTE | 2024-05-26 09:44 | Cardiology Consultation ---
Date of Consultation May 26, 2024 Assessment & Plan (1) Aortic stenosis: (2) HFrEF (heart failure with reduced ejection fraction): (3) ICD (implantable cardioverter-defibrillator) in place: (4) Paroxysmal ventricular tachycardia: Plan (1) HFrEF (heart failure with reduced ejection fraction): Plan: -Clinically features of heart failure seems overlapping with ALLAN volume overload; hoping her symptoms will improve after few more HD. -BNP: >4700 since last admission ( 05/07 : Similar BNP) -She feels already much better than yesterday. -Recent Echo :Severe aortic stenosis, Moderate to severe MR, EF 30-35%, positive wall motion abnormalities. -Her Heart failure seems to be because of low output secondary to severe aortic stenosis; she is candidate for TAVR, however needs planned procedure in OP basis. -Carvedilol was changed to metoprolol tartrate for an elevated ventricular response to atrial fibrillation. Continue Metoprolol; Currently controlled VR. -Entresto currently on hold due to renal insufficiency. We may be able to restart her heart failure medication after HD. Will consult nephrology before re-starting. (2) Aortic stenosis: Plan: -Severe in degree; Likely candidate for TAVR. is likely for her heart failure as well. -TAVR should be considered as an outpatient planned procedure. She is aware and positive about it. -Advise to F/U with Cardiology team as Outpatient basis. (3) PAF (paroxysmal atrial fibrillation): Plan: -Rate controlled Afib, VR: 78 bpm today morning( range 52-106 after admission -ECG in ED: Paced rhythm with Afib + VR: 68/ min -Tele: Afib persistent -Continue Tele monitoring; Target VR <100 -Continue adjusted dose Eliquis/ Continue Metoprolol same dose. - No Additional intervention for Afib at present. (4) CAD (coronary artery disease): Plan: -Clinically no chest pain at rest or exertion -Quiescent on medical management. -Deemed inoperable when at [facility], June 2019. (5) Ischemic cardiomyopathy: Plan: -Some medications being held due to renal dysfunction. (6) Paroxysmal ventricular tachycardia: Plan: -Resolved on low-dose amiodarone. Continue Amiodarone same dose. -Successful ICD placement by Dr. Sanders, May 12. Supervising Physician Co-Signing Physician Notes Patient seen and examined. Agree with Dr. Rausch's assessment and plan. Impression 1. Acute on chronic systolic CHF -Ischemic cardiomyopathy -Hemodialysis controlling volume status. -Currently on metoprolol to tartrate in place of carvedilol for heart rate control. -Entresto on hold due to renal status. -LVEF 30 to 35% with multiple wall motion abnormalities. 2. Severe aortic stenosis -Consider TAVR once she has stabilized and is an outpatient. 3. Coronary artery disease -Deemed inoperable when at [facility], June 2019 4. Paroxysmal ventricular tachycardia -Resolved on amiodarone. -s/p dual-chamber ICD, May 12, 2024. 5. Paroxysmal atrial fibrillation -No further episodes during this admission. -Currently atrial pacing. -Continue amiodarone. History of Present Illness Attending Physician: Danielle Huitron MD History of Present Illness Jere is an 78-year-old pleasant lady who was just discharged from the hospital 2 days back after a prolonged hospitalization for acute kidney injury on CKD stage IV, acute on chronic HFrEF, sustained ventricular tachycardia s/p ICD placement, severe aortic stenosis, moderate-severe mitral regurgitation, CAD paroxysmal atrial fibrillation. She presented to ED with acute onset of shortness of breath and tachypnea yesterday. She was found hypoxic at the correction and placed on 2 L nasal cannula. O2 Sats on arrival to ER was 84% and given 5L of O2----93% Severe Aortic Stenosis was diagnosed recently and Valve replacement was suggested on Out-patient basis. She denies Chest pain and syncope now and anytime in past. Developed ALLAN on CKD while during admission. Dialysis was started on 17 May, last Dialysis before ED 05/24. She head developed AFib during HD on 05/24 and hence HD was stopped earlier with 2 pounds of fluid removal. After admission completed 1 Dialysis and is undergoing another now. Today morning she was in Dialysis when I saw her. She was out of Oxygen. Lying in bed in propped op position. She talked to me for about 15 minutes; looks d yspneic, however she reports she feels much better than yesterday. No episode of passing out this time or in past, No chest pain, no abdominal pain , nausea, headache. She is not aware of her heart racing. or slowing down. Allergies Allergy/AdvReac Type Severity Reaction Status Date / Time bee venom protein (honey bee) Allergy Severe Anaphylaxis Verified 05/25/24 15:24 Penicillins Allergy Severe Rash, Verified 05/25/24 15:24 anaphylaxis Sulfa (Sulfonamide Allergy Severe Rash, Verified 05/25/24 15:24 Antibiotics) anaphylaxis Home Medications Medication Instructions Recorded Confirmed Type atorvastatin 80 mg tablet (Lipitor) 80 mg PO HS #90 tabs 08/25/23 05/25/24 Rx lancets 31 gauge (Comfort Touch #100 ea 08/25/23 05/25/24 Rx Ultra Thin Lancets) nitroglycerin 0.4 mg sublingual 0.4 mg sublingual UD PRN Chest 08/25/23 05/25/24 Rx tablet (Nitrostat) Pain #25 tabs blood sugar diagnostic (OneTouch #100 ea 09/01/23 05/25/24 Rx Verio test strips) fluticasone propionate 50 1 spray intranasal QAM #48 mL 12/02/23 05/25/24 Rx mcg/actuation nasal spray,suspension apixaban 2.5 mg tablet (Eliquis) 2.5 mg PO BID #60 tabs 05/24/24 05/25/24 Rx polyethylene glycol 3350 17 17 g PO DAILY PRN constipation 05/24/24 05/25/24 Rx gram/dose oral powder (Miralax) #119 grams acetaminophen 500 mg tablet 1,000 mg PO Q8H PRN Fever Or Pain 05/25/24 05/25/24 History (Tylenol Extra Strength) albuterol sulfate 90 mcg/actuation 1 puff inhalation Q6H PRN 05/25/24 05/25/24 History aerosol inhaler Shortness Of Breath Or Wheezing amiodarone 200 mg tablet 200 mg PO AMHS 05/25/24 05/25/24 History cholecalciferol (vitamin D3) 50 2,000 unit PO HS 05/25/24 05/25/24 History mcg (2,000 unit) tablet clopidogrel 75 mg tablet 75 mg PO HS 05/25/24 05/25/24 History fexofenadine 180 mg tablet 180 mg PO HS 05/25/24 05/25/24 History folic acid 1 mg tablet 1 mg PO HS 05/25/24 05/25/24 History mecobalamin (vitamin B12) 1,000 1,000 mcg sublingual HS 05/25/24 05/25/24 History mcg disintegrating tablet,sublingual metoprolol succinate 25 mg 25 mg PO AMHS 05/25/24 05/25/24 History tablet,extended release 24 hr pantoprazole 40 mg tablet,delayed 40 mg PO HS 05/25/24 05/25/24 History release sertraline 100 mg tablet (Zoloft) 100 mg PO HS 05/25/24 05/25/24 History Patient History Medical History 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 [facility] 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 CLL (chronic lymphocytic leukemia) Ischemic cardiomyopathy PAF (paroxysmal atrial fibrillation) Diabetes mellitus, type 2 Depression Hypertension Seasonal allergies Cerebral artery occlusion History of CHF (congestive heart failure) Osteoarthritis of right knee GEL SHOT, MOST RECENT INJECTION FEBRUARY 2021 DM2 (diabetes mellitus, type 2) History of colon polyps Nausea and vomiting after administration of anesthetic agent Osteoarthritis Leukemia just monitoring On anticoagulant therapy Hearing deficit Stroke x3 ?--2010/2011--no neurologist, left arm weakness, uses cane to ambulate Hyperlipidemia Atrial fibrillation DX 2018 ? DR KENNEDY - NO HX CARDIOVERSION Myocardial Infarction 2010 & 2019...STENT X 1 Asthma LAST USE LAST WEEK Surgical History Hx of cataract surgery B/L H/O heart artery stent HX MD , STENT X1 2019 History of phacoemulsification of cataract of both eyes with intraocular lens implantation History of dilatation and curettage x3 History of total left knee replacement (TKR) History of right breast biopsy x3--benign History of laparoscopy History of bilateral breast reduction surgery History of colonoscopy Family History Mother Family history of diabetes mellitus Myocardial infarction Family/Other Family history of diabetes mellitus cousin Aunt Breast cancer Father Myocardial infarction Stroke Other No family history of adverse response to anesthesia Denies family history of Ovarian cancer Prostate cancer Colorectal cancer Uterine cancer Social History Smoking Status: Never smoker Tobacco Type: Cigarettes Age Started Using Tobacco: 53; Age Quit Using Tobacco: 62; Cigarettes Per Day: HX OCCASSIONAL CIGARETTE 15 YRS AGO; Second Hand Exposure: No; Do You Dip or Chew Tobacco: No; Hx Alcohol Use: No Hx Substance Use: No Preferred Language: [place] Korean Communication Ability: Effective Visual Impairment: No Limitations Hearing Ability: Use of Hearing Aid Souvenir Assembler Required: No Beliefs That Will Affect Care: None marital status: / Current Living Situation: Family Current Living Situation Comment: lives with daughter current occupational status: retired current occupation: worked for [employer] Feels Safe at Home: Yes Childhood Exposure to Second-Hand Smoke: Yes Diet: low salt Diet Comment: low sodium Dental Care, Regularly: Yes Physical Activity Frequency: Does not Exercise Seatbelt Use: always Sunscreen Use: No Assistive Devices: Walker Review of Systems Review of Systems: As per HPI Physical Exam Physical Exam: Constitutional: Seems Dyspneic when talking longer , ill- appearing, pallor+ HEENT: Atraumatic, Normocephalic, No conjunctival injection CVS: S1 S2, Systolic murmur+, Irregular Rhythm, Distant heart sound intensity, Peripheral edema noted upto mid-thigh. Respiratory: BL decreased air entry with occasional crackles. Increased work of breathing GI: Soft, Nondistended, Nontender, Normal Bowel sounds + MSK: No gross deformities noted Skin: Warm, Dry, No rashes Neuro: Alert, Oriented to TPP, No Focal deficit Psych: Mood and Affect congruent, Cooperative on exam Results & Data Vital Signs (Past 12 Hours) Vital Signs Temp Pulse Pulse Resp BP Pulse Ox O2 Del Method 05/26/24 07:38 37 C 60 14 143/76 H 97 Nasal Cannula 05/26/24 02:56 36.8 C 61 18 123/78 96 Nasal Cannula 05/26/24 00:37 Nasal Cannula 05/25/24 23:44 100 H 05/25/24 23:15 36.7 C 73 18 116/84 95 Nasal Cannula O2 Flow Rate 05/26/24 07:38 2 05/26/24 02:56 4 05/26/24 00:37 2 05/25/24 23:44 05/25/24 23:15 4 PG Care Time/CCT Total # of Minutes Spent Total Time Spent with Patient: Total time spent is greater than 50% in coordination of care (as documented) at patient's floor/unit and/or counseling patient: Coding Level of Care Code 94889 INT INP/OBS CARE 3/75MIN Diagnoses Aortic stenosis I35.0 HFrEF (heart failure with reduced ejection fraction) I50.20 ICD (implantable cardioverter-defibrillator) in place Z95.810 Paroxysmal ventricular tachycardia I47.29 Resident Activity Tracking Resident Involvement: Resident Care Provided Care Provided: Adult Hospital Medicine
--- NOTE | 2024-05-26 10:01 | Nephrology Progress Note ---
Date of Service May 26, 2024 Assessment & Plan (1) Hypoxia: Plan: Improved with UF yesterday. Supplemental O2 weaned off this AM. Orders for dialysis entered into the EHR and reviewed with the site reliability engineer. Will attempt additional UF today as tolerated. (2) Acute kidney injury: Plan: Started HD May 17. ALLAN attributed to CRS and ATN. No signs of renal recovery. Remains oliguric. Completed HD last evening with UF 2 L. Orders for additional HD treatment today entered into the EHR and reviewed with site reliability engineer. Outpatient HD has been arranged at [facility] under the care of Dr. Tran. Medications are appropriate for kidney function. (3) Chronic kidney disease, stage IV (severe): Plan: Baseline creatinine ~1.8-2.0 mg/dL. Severely atrophic right kidney and moderately atrophic left. CKD attributed to arterionephrosclerosis. (4) CHF (congestive heart failure): Plan: Entresto held due to hypotension and ALLAN. MRA avoided due to hypotension and ALLAN. BP has improved. Likelihood of renal recovery is low. Consider restarting RAASi for cardiac benefits. ICD in place. (5) Anemia: Plan: History of CLL. Completed IV iron replacement during recent hospitalization. Hemoglobin stable. Epogen 4000 units and venofer 100 mg will be provided with HD today. (6) Aortic stenosis: Plan: Cardiology consultation appreciated. Outpatient evaluation for TAVR planned. Ultimately may benefit from discussion with palliative care regarding advanced kidney and cardiac disease. (7) PAF (paroxysmal atrial fibrillation): Plan: Atrial paced this AM. Remains on amiodarone and metoprolol. Anticoagulated with Eliquis. Admission and Anticipated Discharge Date Admission Date: May 25, 2024 Subjective No acute events overnight. Jere reports improvement in her breathing. She feels reasonably well overall. Continues to experience lower pelvic pressure and urge to void but passing very little urine. Denies palpitations. Denies chest pain. Tolerated HD well yesterday. No complications with treatment. Review of Systems Review of Systems: All systems reviewed & are unremarkable except as noted in HPI & below Physical Exam Constitutional: well developed and + frail appearing; no acute distress Eyes: + anicteric sclerae Neck: normal visual inspection and trachea midline Respiratory: + tachypneic Auscultation: lungs lexie r to auscultation bilaterally and + diminished lung sounds Cardiovascular: Rate/Rhythm: + bradycardic Heart Sounds: normal S1, normal S2 and + murmur Extremities: no edema Chest (Breasts): Chest: + pacemaker (ICD) and + vascular access device or port (RIJ TDC) Musculoskeletal: Extremities: no cyanosis and no clubbing Skin: no jaundice Neurologic: Motor/Sensory: no tremor and no asterixis Psychiatric: Orientation: alert and oriented x 3 Results & Data Vital Signs (Past 12 Hours) Vital Signs Temp Pulse Pulse Resp BP Pulse Ox O2 Del Method 05/26/24 07:38 37 C 60 14 143/76 H 97 Nasal Cannula 05/26/24 02:56 36.8 C 61 18 123/78 96 Nasal Cannula 05/26/24 00:37 Nasal Cannula 05/25/24 23:44 100 H 05/25/24 23:15 36.7 C 73 18 116/84 95 Nasal Cannula O2 Flow Rate 05/26/24 07:38 2 05/26/24 02:56 4 05/26/24 00:37 2 05/25/24 23:44 05/25/24 23:15 4 Laboratory Results Laboratory Results - last 24 hr 05/25/24 05/25/24 05/25/24 13:47 14:28 20:26 WBC 21.14 H RBC 3.14 L Hgb 9.8 L Hct 30.6 L MCV 97.5 MCH 31.2 MCHC 32.0 RDW Std Deviation 59.0 H RDW Coeff of Nino 19.1 H Plt Count 236 MPV 10.2 Immature Gran % (Auto) 0.6 Neut % (Auto) 48.0 Lymph % (Auto) 45.8 [place] % (Auto) 4.8 Eos % (Auto) 0.4 Baso % (Auto) 0.4 Neut # (Auto) 10.13 H Lymph # (Auto) 9.69 H [place] # (Auto) 1.02 H Eos # (Auto) 0.09 Baso # (Auto) 0.08 Immature Gran # (Auto) 0.13 Absolute Nucleated RBC 0.18 H Nucleated RBC % (auto) 0.9 Polychromasia 1+ Hypochromasia Anisocytosis PT 13.5 H INR 1.3 H APTT 36 H PTT Ratio 1.3 Sodium 135 L Potassium 4.0 Chloride 101 Carbon Dioxide 22 Anion Gap 12 H BUN 30 H Creatinine 2.93 H D Est Cr Clr Drug Dosing 17.4 Est GFR ( Amer) 16.8 Est GFR (Non-Af Amer) 14.5 BUN/Creatinine Ratio 10.2 Glucose 135 H Calcium 8.7 Magnesium 2.1 Total Bilirubin 0.7 AST 39 ALT 130 H Alkaline Phosphatase 316 H Troponin I High Sens 286.4 H* 281.9 H* B-Natriuretic Peptide > 4700 H Total Protein 5.7 L Albumin 3.4 Globulin 2.3 L Albumin/Globulin Ratio 1.5 SARS-CoV-2 (PCR) NEGATIVE Influenza Type A (PCR) Negative Influenza Type B (PCR) Negative RSV (RT-PCR) Negative 05/26/24 05:56 WBC 15.35 H RBC 2.93 L Hgb 9.2 L Hct 29.0 L MCV 99.0 MCH 31.4 MCHC 31.7 L RDW Std Deviation 60.5 H RDW Coeff of Nino 19.2 H Plt Count 191 MPV 10.1 Immature Gran % (Auto) 0.6 Neut % (Auto) 47.5 Lymph % (Auto) 43.5 [place] % (Auto) 5.8 Eos % (Auto) 2.2 Baso % (Auto) 0.4 Neut # (Auto) 7.29 H Lymph # (Auto) 6.68 H [place] # (Auto) 0.89 H Eos # (Auto) 0.34 Baso # (Auto) 0.06 Immature Gran # (Auto) 0.09 Absolute Nucleated RBC 0.07 Nucleated RBC % (auto) 0.5 Polychromasia Hypochromasia Present Anisocytosis Present PT INR APTT PTT Ratio Sodium 138 Potassium 4.0 Chloride 105 Carbon Dioxide 25 Anion Gap 8 BUN 23 Creatinine 2.71 H Est Cr Clr Drug Dosing 18.9 Est GFR ( Amer) 18.5 Est GFR (Non-Af Amer) 15.9 BUN/Creatinine Ratio 8.5 L Glucose 108 H Calcium 8.6 Magnesium 2.1 Total Bilirubin 0.8 AST 31 ALT 100 H Alkaline Phosphatase 276 H Troponin I High Sens 244.3 H* B-Natriuretic Peptide Total Protein 5.1 L Albumin 3.1 L Globulin 2.0 L Albumin/Globulin Ratio 1.6 SARS-CoV-2 (PCR) Influenza Type A (PCR) Influenza Type B (PCR) RSV (RT-PCR) PG Care Time/CCT Total # of Minutes Spent Total Time Spent with Patient: Total time spent is greater than 50% in coordination of care (as documented) at patient's floor/unit and/or counseling patient: Coding Level of Care Code 26032 SUB INP/OBS CARE 50MIN Diagnoses Hypoxia R09.02 Acute kidney injury N17.9 Chronic kidney disease, stage IV (severe) N18.4 CHF (congestive heart failure) I50.9 Heart failure chronicity: unspecified Heart failure type: unspecified Anemia D64.9 Aortic stenosis I35.0 PAF (paroxysmal atrial fibrillation) I48.0 (4) CHF (congestive heart failure) Heart failure chronicity: unspecified Heart failure type: unspecified Qualified Code(s): I50.9 - Heart failure, unspecified
--- NOTE | 2024-05-26 11:30 | Hospitalist Progress Note ---
Date of Service May 26, 2024 Assessment & Plan (1) HFrEF (heart failure with reduced ejection fraction): Plan: Presents again with acute on chronic HFrEF/flash pulm edema despite just having dialysis yesterday and had been stable for days awaiting rehab placement during prior admission She did go back into Afib but rates controlled in 80-90s on day of discharge 05/24 but perhaps this caused some backup of fluid into the lungs? BNP significantly elevated, chest x-ray appears worse than previous with pulmonary edema and effusions Was initiated on hemodialysis last admission for volume management and oliguria in setting of ALLAN Last admission w/ Echo w/ progression to severe aortic stenosis, moderate to severe MR, EF 30-35%, positive wall motion abnormalities. With H/o CAD- not a candidate for CABG when evaluated several years ago Has ICD in place Cardiology and Nephrology consults placed-appreciate recommendations Had urgent dialysis on the evening of 05/25 after admission and going for dialysis again on 05/26 Significantly improved, weaned off oxygen now, no longer tachypneic or hypoxic Continue rate control of A-fib- continue Toprol-XL 25 Mg p.o. twice daily Entresto, spironolactone, and SGLT 2 not able to be given due to poor renal function. Follow daily weights, strict I's and O's, fluid restrict to 1200mL, hemodialysis to manage volume status Needs eval for TAVR after stabilized and discharged (2) Hypoxia: Plan: 2/2 flash pulm edema as above-now resolved after receiving extra dialysis Follow chest x-ray periodically (3) Chronic kidney disease, stage IV (severe): Plan: With ALLAN in the setting of CKD stage IV. She began hemodialysis on May 17 and had several dialysis sessions, the most recent on 05/24 prior to discharge from last admission. Receiving extra dialysis sessions on 05/25 and 05/[address] Renally dose medications, avoid nephrotoxins Appreciate nephrology consultation Already has outpatient hemodialysis arranged at [facility] Wednesday for when she returns to longterm facility at discharge (4) Paroxysmal ventricular tachycardia: Plan: Occurred on May 10 during last admission. ICD was placed on May 12. Surgical site is unremarkable. Appreciate cardiology consultation. Amiodarone uptitrated on May 20 due to recurrent runs of nonsustained V. tach. Continue amiodarone 200 Mg p.o. twice daily No lifting LUE above level of shoulder for 5 more weeks-can likely have her Steri-Strips removed prior to this discharge if they do not fall off before then Consult cardiology appreciated (5) Aortic stenosis: Plan: Moderate-severe as seen on cardiac echo. Needs outpatient evaluation for TAVR which will be arranged by her primary director of respiratory therapy. Avoid overdiuresis and low blood pressure (6) CAD (coronary artery disease): Plan: With elevated troponin on admission in the 200s, no chest pain but also with mil dly elevated LFTs-prep she had a hypotensive event? In the setting of aortic stenosis. No evidence of syncope by history. Trended serial troponins and remained stable each time in the 200s-this is not acute coronary syndrome and rather is likely demand ischemia in the setting of renal failure Consult cardiology Continue Plavix, metoprolol, atorvastatin (7) GERD (gastroesophageal reflux disease): Plan: Continue PPI (8) DM2 (diabetes mellitus, type 2): Plan: Most recent hemoglobin A1c only 6.3% She is not on medications for this as an outpatient No need for insulin checks (9) PAF (paroxysmal atrial fibrillation): Plan: She has paroxysms of atrial fibrillation, the most recent on 05/24. She continues to remain in a sinus rhythm here with rates in the 60s, paced at times Continue amiodarone, renally dosed Eliquis Monitor on telemetry (10) CLL (chronic lymphocytic leukemia): Plan: With leukocytosis secondary to CLL and stress Iron deficiency noted. She has received parenteral iron replacement last admission Follow with hematology as an outpatient Follow CBC Plan DVT prophylaxis-Eliquis Disposition-continued stay on PCU, eventually back to longterm facility at Start care for rehab-likely on Wednesday Full code as per discussion with patient with her paid advocate at her bedside Admission and Anticipated Discharge Date Admission Date: May 25, 2024 Subjective Patient seen while on dialysis this morning. She had dialysis urgently on admission yesterday. She is feeling much better. Not short of breath. Complaining about how she did not get dinner last night. Telemetry with paced rhythm, underlying sinus, rates in the 60s I discussed her care with cardiology. Physical Exam Constitutional: WD/WN, vitals as above Neck: trachea midline, no thyromegaly Respiratory: normal respiratory effort; no cough and not tachypneic Auscultation: + crackles (Bibasilar); no rhonchi and no wheezes Cardiovascular: Rate/Rhythm: regular rate and regular rhythm Heart Sounds: + murmur (3/6 DEBRA at the RUSB) Extremities: + edema (1+ pitting edema to the knees bilaterally) Gastrointestinal (Abdomen): normal bowel sounds, soft, nontender, no hepatosplenomegaly Musculoskeletal: Extremities: no cyanosis and no clubbing Skin: no rashes, warm and dry Neurologic: moves all extremities and awake; no focal motor deficits Psychiatric: A+Ox3, euthymic affect Results & Data Results & Data Vital Signs (Past 12 Hours) Vital Signs Temp Pulse Pulse Resp BP Pulse Ox O2 Del Method 05/26/24 07:38 37 C 60 14 143/76 H 97 Nasal Cannula 05/26/24 02:56 36.8 C 61 18 123/78 96 Nasal Cannula 05/26/24 00:37 Nasal Cannula 05/25/24 23:44 100 H O2 Flow Rate 05/26/24 07:38 2 05/26/24 02:56 4 05/26/24 00:37 2 05/25/24 23:44 Laboratory Results CBC, BMP, troponin, magnesium, LFTs reviewed PG Care Time/CCT Total # of Minutes Spent Total Time Spent with Patient: Total time spent is greater than 50% in coordination of care (as documented) at patient's floor/unit and/or counseling patient: Coding Level of Care Code 15046 SUB INP/OBS CARE 2/35MIN Diagnoses HFrEF (heart failure with reduced ejection fraction) I50.20 Hypoxia R09.02 Chronic kidney disease, stage IV (severe) N18.4 Paroxysmal ventricular tachycardia I47.29 Aortic stenosis I35.0 CAD (coronary artery disease) I25.10 GERD (gastroesophageal reflux disease) K21.9 DM2 (diabetes mellitus, type 2) E11.9 PAF (paroxysmal atrial fibrillation) I48.0 CLL (chronic lymphocytic leukemia) C91.90
[2024-05-26] MEDS ORDERED: ALBUTEROL HFA 8 GM INHALER INH PRN (11:36)
[2024-05-26] MEDS: IRON SUCROSE 100 MG in SYRINGE 0 ML IV ONE (12:07)
[2024-05-26] MEDS: EPOETIN ALFA 10,000 UNITS/ML VIAL IV ONE (12:07)
--- NOTE | 2024-05-26 13:16 | Electrocardiogram Report ---
Test Reason : Blood Pressure : */* mmHG Vent. Rate : 68 BPM Atrial Rate : 68 BPM P-R Int : 242 ms QRS Dur : 122 ms QT Int : 460 ms P-R-T Axes : 4 48 133 degrees QTcB Int : 489 ms Atrial-paced rhythm with prolonged AV conduction with Premature atrial complexes Poor R wave progression, consider anterior NC vs. lead placement vs. LVH Abnormal ECG When compared with ECG of 12-May-2024 16:45, Electronic atrial pacemaker has replaced Atrial fibrillation Anterior infarct is now Present Confirmed by Rigo Robison [id number] on 05/26/2024 1:16:06 PM Referred By: [facility] Confirmed By: Rigo Robison
[2024-05-26] MEDS: FEXOFENADINE HCL 180 MG TAB PO SCH (20:06)
[2024-05-26] MEDS: ACETAMINOPHEN 500 MG TAB PO PRN (22:15)
[2024-05-26] MEDS: CALCIUM CARBONATE 500 MG CHEWABLE TAB PO PRN (22:17)
[2024-05-27 07:51] LABS: Hematocrit (blood only) 32.9 % (37.0-47.0); Mean Corpuscular Hemoglobin 30.9 pg (25.0-34.0); Mean Corpuscular Hgb Conc 30.4 g/dL (32.0-36.0); Mean Corpuscular Volume 101.5 fL (80.0-100.0); Mean Platelet Volume 10.2 fL (9.4-12.4); Nucleated RBC # (auto) 0.05 K/uL (0.00-0.12); Nucleated RBC % (auto) 0.4 %; Platelet Count 184 K/uL (130-400); RDW Coefficient of Variation 19.9 % (11.5-14.5); RDW Standard Deviation 64.3 fL (36.4-46.3); Red Blood Count 3.24 M/uL (4.20-5.40); White Blood Count 13.41 K/ul (4.8-10.8)
[2024-05-27 08:02] LABS: Albumin Globulin Ratio 1.5 (0.9-2); Albumin Level 3.3 gm/dl (3.4-5.0); BUN Creatinine Ratio 9.1 (10-20); Bilirubin,Total 0.8 mg/dl (0.2-1.0); Calcium 8.8 mg/dl (8.6-10.3); Est GFR (African American) 17.3 ml/min; Est GFR (Non-African American) 14.9 ml/min; Globulin 2.2 gm/dl (2.5-4.0); Potassium 3.8 mmol/L (3.5-5.1); Total Protein 5.5 gm/dl (6.0-8.3)
[2024-05-27 08:40] LABS: Basophils # (auto) 0.08 K/uL (0.00-0.20); Basophils % (auto) 0.6 %; Eosinophils # (auto) 0.33 K/uL (0.00-0.50); Eosinophils % (auto) 2.5 %; Immature Granulocytes # (auto) 0.06 K/uL (0.01-0.20); Immature Granulocytes % (auto) 0.4 %; Lymphocytes # (auto) 6.13 K/uL (1.20-3.40); Lymphocytes % (auto) 45.7 %; Monocytes # (auto) 0.82 K/uL (0.11-0.59); Monocytes % (auto) 6.1 %; Neutrophils # (auto) 5.99 K/uL (1.40-6.50); Neutrophils % (auto) 44.7 %; Polychromasia 3+
--- NOTE | 2024-05-27 09:09 | Nephrology Progress Note ---
Date of Service May 27, 2024 Assessment & Plan (1) Hypoxia: Plan: * Resolved. Patient was breathing comfortably on room air. * HD provided 05/24, 05/25, 05/26/2024. Each treatment removed 2 L volume * This morning patient has diminished breath sounds at the right base. I suspect she has a right pleural effusion despite aggressive dialysis. She also has evidence of volume overload with bilateral lower extremity pitting edema. * Will provide hemodialysis today for 2 hours and attempt 1-2 L UF. * Will order CXR this afternoon following dialysis (2) End stage chronic kidney disease: Plan: * ESKD due to CRS. First HD provided 05/17/2024 * Patient is now dialysis dependent, utilizing right IJ TCC as vascular access * Outpatient hemodialysis has been set up with [facility] * Patient's daughter Lita Prater updated by telephone this morning. Reviewed echocardiogram, physical exam findings and vital signs (relative hypotension). Explained that dialysis is needed for continued UF (pleural effusion, lower extremity edema) but this may be difficult due to her valvular heart disease and relative hypotension. We discussed goals of care and the role of palliative care. Currently Ms. Diaz is a full code. Lita indicated that she would speak to her mother regarding her goals of care. If she is not a candidate for TAVR the patient and family may benefit from consultation with palliative care. (3) CHF (congestive heart failure): Plan: * Entresto held due to hypotension and ALLAN. * MRA avoided due to hypotension and ALLAN. * ICD placed 05/12/2024 due to ventricular tachycardia/torsades * Atrial fibrillation. Remains on metoprolol, amiodarone, warfarin therapy. (4) Anemia: Plan: * History of CLL. Completed IV iron replacement during recent hospitalization. Hemoglobin stable. * Epogen 4000 units and venofer 100 mg provided with HD 05/26/2024 Admission and Anticipated Discharge Date Admission Date: May 25, 2024 Subjective Ms. Diaz was evaluated in her hospital room this morning. She is extremely hard of hearing. She was very tearful about remaining hospitalized. She notes that her breathing has improved with dialysis but she still has abdominal swelling and marked lower extremity swelling. Review of Systems Constitutional: no fever Eyes: no problem reported Ear, Nose, Mouth, Throat: no problem reported Respiratory: no cough and no dyspnea Cardiovascular: no chest pain Gastrointestinal: + bloating Integumentary: no rash Neurologic: + problem reported ([place]) Physical Exam Constitutional: not in distress Anxious, [place] Eyes: PERRL, conjunctivae normal, anicteric sclerae ENMT: external ear and nose normal, oropharynx normal Neck: trachea midline, no thyromegaly Respiratory: Auscultation: + diminished lung sounds (Right base) Cardiovascular: Rate/Rhythm: regular rate and regular rhythm Extremities: + edema (3+ pretibial pitting edema) Gastrointestinal (Abdomen): normal bowel sounds, soft, nontender, no hepatosplenomegaly Skin: no rashes, warm and dry Psychiatric: Affect: + anxious affect Results & Data Vital Signs (Past 12 Hours) Vital Signs Temp Pulse Resp BP BP Pulse Ox O2 Del Method 05/27/24 07:21 36.5 C 99 H 20 107/75 97 Nasal Cannula 05/27/24 04:41 36.4 C L 64 19 139/69 98 Room Air 05/27/24 00:19 36.6 C 60 21 108/69 98 Nasal Cannula O2 Flow Rate 05/27/24 07:21 05/27/24 04:41 05/27/24 00:19 1 Laboratory Results Laboratory Results - last 24 hr 05/27/24 07:20 WBC 13.41 H RBC 3.24 L Hgb 10.0 L Hct 32.9 L MCV 101.5 H MCH 30.9 MCHC 30.4 L RDW Std Deviation 64.3 H RDW Coeff of Nino 19.9 H Plt Count 184 MPV 10.2 Immature Gran % (Auto) 0.4 Neut % (Auto) 44.7 Lymph % (Auto) 45.7 [place] % (Auto) 6.1 Eos % (Auto) 2.5 Baso % (Auto) 0.6 Neut # (Auto) 5.99 Lymph # (Auto) 6.13 H [place] # (Auto) 0.82 H Eos # (Auto) 0.33 Baso # (Auto) 0.08 Immature Gran # (Auto) 0.06 Absolute Nucleated RBC 0.05 Nucleated RBC % (auto) 0.4 Polychromasia 3+ Sodium 139 Potassium 3.8 Chloride 105 Carbon Dioxide 24 Anion Gap 10 BUN 26 H Creatinine 2.86 H Est Cr Clr Drug Dosing 18.0 Est GFR ( Amer) 17.3 Est GFR (Non-Af Amer) 14.9 BUN/Creatinine Ratio 9.1 L Glucose 123 H Calcium 8.8 Magnesium 2.0 Total Bilirubin 0.8 AST 29 ALT 87 H Alkaline Phosphatase 265 H Total Protein 5.5 L Albumin 3.3 L Globulin 2.2 L Albumin/Globulin Ratio 1.5 PG Care Time/CCT Total # of Minutes Spent Total Time Spent with Patient: Total time spent is greater than 50% in coordination of care (as documented) at patient's floor/unit and/or counseling patient: Coding Level of Care Code 15571 SUB INP/OBS CARE 3/50MIN Diagnoses Hypoxia R09.02 End stage chronic kidney disease N18.6 CHF (congestive heart failure) I50.9 Heart failure chronicity: unspecified Heart failure type: unspecified Anemia D64.9 (3) CHF (congestive heart failure) Heart failure chronicity: unspecified Heart failure type: unspecified Qualified Code(s): I50.9 - Heart failure, unspecified
[2024-05-27] MEDS ORDERED: SODIUM CHLORIDE 0.9% 1,000 ML IV PRN (09:40)
[2024-05-27] MEDS: EPOETIN ALFA 10,000 UNITS/ML VIAL IV ONE (11:04)
--- NOTE | 2024-05-27 17:17 | Hospitalist Progress Note ---
Date of Service May 27, 2024 Assessment & Plan (1) HFrEF (heart failure with reduced ejection fraction): Plan: (1) HFrEF (heart failure with reduced ejection fraction): Plan: - Readmitted after spending ~ 12 hours at [facility] with acute on chronic HFrEF/flash pulm edema despite just having dialysis on 05/26/24 and had been stable for days awaiting rehab placement during prior admission - She did go back into Afib but rates controlled in 80-90s on day of discharge 05/24 but perhaps this caused some backup of fluid into the lungs? - BNP significantly elevated, chest x-ray appears worse than previous with pulmonary edema and effusions - Was initiated on hemodialysis last admission for volume management and oliguria in setting of ALLAN Last admission w/ Echo w/ progression to severe aortic stenosis, moderate to severe MR, EF 30-35%, positive wall motion abnormalities. With H/o CAD- not a candidate for CABG when evaluated several years ago Has ICD in place Cardiology and Nephrology consults placed-appreciate recommendations Had urgent dialysis on the evening of 05/25 after admission and going for dialysis again on 05/26. Having lower volume dialysis today Significantly improved, weaned off oxygen now, no longer tachypneic or hypoxic Continue rate control of A-fib- continue Toprol-XL 25 Mg p.o. twice daily Entresto, spironolactone, and SGLT 2 not able to be given due to poor renal function. Follow daily weights, strict I's and O's, fluid restrict to 1200mL, hemodialysis to manage volume status --> Needs eval for TAVR -- perhaps more acutely than originally planned -- await cards input <-- (2) Hypoxia: Plan: 2/2 flash pulm edema as above-now resolved after receiving extra dialysis Follow chest x-ray periodically -- resolved (3) Chronic kidney disease, stage IV (severe): Plan: With ALLAN in the setting of CKD stage IV. She began hemodialysis on May 17 and had several dialysis sessions, the most recent on 05/24 prior to discharge from last admission. Receiving extra dialysis sessions on 05/25 and 05/[address] Has tunnel[address] catheter in place Renally dose medications, avoid nephrotoxins Appreciate nephrology consultation Already has outpatient hemodialysis arranged at [facility] Wednesday for when she returns to prison facility at discharge (4) Paroxysmal ventricular tachycardia: Plan: Occurred on May 10 during last admission. ICD was placed on May 12. Surgical site is unremarkable. Appreciate cardiology consultation. Amiodarone uptitrated on May 20 due to recurrent runs of nonsustained V. tach. Continue amiodarone 200 Mg p.o. twice daily No lifting LUE above level of shoulder for 5 more weeks-can likely have her Steri-Strips removed prior to this discharge if they do not fall off before then Consult cardiology appreciated (5) Aortic stenosis: Plan: Moderate-severe as seen on cardiac echo. Needs outpatient evaluation for TAVR which will be arranged by her primary silver service waiter. Avoid overdiuresis and low blood pressure (6) CAD (coronary artery disease): Plan: With elevated troponin on admission in the 200s, no chest pain but also with mildly elevated LFTs-prep she had a hypotensive event? In the setting of aortic stenosis. No evidence of syncope by history. Trended serial troponins and remained stable each time in the 200s-this is not acute coronary syndrome and rather is likely demand ischemia in the setting of renal failure Consult cardiology Continue Plavix, metoprolol, atorvastatin (7) GERD (gastroesophageal reflux disease): Plan: Continue PPI (8) DM2 (diabetes mellitus, type 2): Plan: Most recent hemoglobin A1c only 6.3% She is not on medications for this as an outpatient No need for insulin checks (9) PAF (paroxysmal atrial fibrillation): Plan: She has paroxysms of atrial fibrillation, the most recent on 05/24. She continues to remain in a sinus rhythm here with rates in the 60s, paced at times Continue amiodarone, renally dosed Eliquis Monitor on telemetry (10) CLL (chronic lymphocytic leukemia): Plan: With leukocytosis secondary to CLL and stress Iron deficiency noted. She has received parenteral iron replacement last admission Follow with hematology as an outpatient Follow CBC Plan DVT prophylaxis-Eliquis Disposition-continued stay on PCU, eventually back to [facility] facility [facility] for rehab-likely on Wednesday Full code as per discussion with patient with her paid advocate at her bedside Admission and Anticipated Discharge Date Admission Date: May 25, 2024 Subjective Talked with patient and daughter today at bedside. Awaiting recommendation regarding TAVR Review of Systems Review of Systems: All systems reviewed & are unremarkable except as noted in HPI & below Physical Exam Constitutional: WD/WN, vitals as above Eyes: + anicteric sclerae ENMT: external ear and nose normal, oropharynx normal Neck: trachea midline, no thyromegaly Respiratory: normal respiratory effort, lungs clear to auscultation Cardiovascular: Rate/Rhythm: regular rate Heart Sounds: normal S1, normal S2 and + murmur (systolic ejection ) Musculoskeletal: Head/Neck/Chest: normocephalic and head atraumatic Skin: no rashes, warm and dry Psychiatric: A+Ox3, euthymic affect Results & Data Results & Data Vital Signs (Past 12 Hours) Vital Signs Temp Pulse Pulse Pulse Resp BP BP 05/27/24 14:32 36.4 C L 62 17 114/73 05/27/24 12:54 36.5 C 60 05/27/24 12:30 60 118/68 05/27/24 12:00 60 117/66 05/27/24 11:30 61 129/78 05/27/24 11:00 62 122/74 05/27/24 10:48 61 123/65 05/27/24 10:45 36.7 C 60 05/27/24 09:00 94 H 05/27/24 09:00 05/27/24 07:21 36.5 C 99 H 20 BP Pulse Ox O2 Del Method 05/27/24 14:32 95 Room Air 05/27/24 12:54 122/76 05/27/24 12:30 05/27/24 12:00 05/27/24 11:30 05/27/24 11:00 05/27/24 10:48 05/27/24 10:45 05/27/24 09:00 05/27/24 09:00 Room Air 05/27/24 07:21 107/75 97 Nasal Cannula PG Care Time/CCT Total # of Minutes Spent Total Time Spent with Patient: Total time spent is greater than 50% in coordination of care (as documented) at patient's floor/unit and/or counseling patient: Coding Level of Care Code 57154 SUB INP/OBS CARE 2/35MIN Diagnoses HFrEF (heart failure with reduced ejection fraction) I50.20
--- NOTE | 2024-05-27 17:44 | XRay Report ---
XR chest 1V portable CLINICAL HISTORY: CHF TECHNIQUE: Single frontal radiograph of the chest was obtained. Comparison: Comparison is made to chest radiograph 05/25/2024 FINDINGS: Lines and tubes are stable. Aortic valvular prosthesis is seen. There is prominence and cephalization of the vasculature with Melva B lines seen. Small bilateral pleural effusions are seen. IMPRESSION: 1. Cardiomegaly and moderate pulmonary edema. This is improved from prior exam. 2. Small bilateral pleural effusions. ACT 112: Negative or not required by law. Electronically signed by: Emre Dennis M.D. 05/27/2024 5:42 PM
[2024-05-27] MEDS: busPIRone 5 MG TAB PO PRN (18:31)
[2024-05-27] MEDS: MELATONIN 3 MG TAB PO PRN (20:06)
[2024-05-28 07:58] LABS: Hematocrit (blood only) 33.1 % (37.0-47.0); Hemoglobin 10.4 g/dl (12.0-16.0); Mean Corpuscular Hemoglobin 31.4 pg (25.0-34.0); Mean Corpuscular Hgb Conc 31.4 g/dL (32.0-36.0); Mean Platelet Volume 10.6 fL (9.4-12.4); Nucleated RBC # (auto) 0.07 K/uL (0.00-0.12); Nucleated RBC % (auto) 0.6 %; Platelet Count 195 K/uL (130-400); RDW Coefficient of Variation 20.2 % (11.5-14.5); RDW Standard Deviation 65.6 fL (36.4-46.3); Red Blood Count 3.31 M/uL (4.20-5.40); White Blood Count 12.44 K/ul (4.8-10.8)
[2024-05-28 08:08] LABS: BUN Creatinine Ratio 9.2 (10-20); Calcium 8.8 mg/dl (8.6-10.3); Est GFR (African American) 16.1 ml/min; Est GFR (Non-African American) 13.9 ml/min; Potassium 3.8 mmol/L (3.5-5.1)
--- NOTE | 2024-05-28 09:07 | Nephrology Progress Note ---
Date of Service May 28, 2024 Assessment & Plan (1) Hypoxia: Plan: * Resolved. Patient was breathing comfortably on room air. * HD provided 05/24, 05/25, 05/26, 05/27/24. Each treatment removed 2 L volume * On exam patient still has diminished breath sounds at the right base and bilateral lower extremity pitting edema * 05/27/24 CXR post HD reveals small bilateral pleural effusions * Will provide hemodialysis tomorrow and utilize Crit-line monitor to guide UF (2) End stage chronic kidney disease: Plan: * ESKD due to CRS. First HD provided 05/17/2024 * Patient is now dialysis dependent, utilizing right IJ TCC as vascular access * Outpatient hemodialysis has been set up with [facility] * Patient's daughter Lita Prater updated by telephone this morning. We discussed her dialysis treatment yesterday and persistent lower extremity swelling/bilateral pleural effusions. Await cardiology input. Given patient's recent episode of flash pulmonary edema and repeated hospitalization question whether she should transfer to tertiary care center for TAVR evaluation. If patient is not a candidate for TAVR then she and the family may benefit from consultation with palliative care. (3) Anemia: Plan: * History of CLL. Completed IV iron replacement during recent hospitalization. Hemoglobin stable. * Epogen 4000 units and venofer 100 mg provided with HD 05/26/2024 Admission and Anticipated Discharge Date Admission Date: May 25, 2024 Subjective Ms. Diaz was evaluated in her hospital room this morning. She was breathing comfortably on RA. Ms. Diaz tolerated HD with 2 L UF yesterday without complication. Systolic blood pressure 103 this morning however patient is asymptomatic. She voices no new medical concerns. Review of Systems Constitutional: no fever Eyes: no problem reported Ear, Nose, Mouth, Throat: no problem reported Respiratory: no cough and no dyspnea Cardiovascular: no chest pain Gastrointestinal: + bloating Integumentary: no rash Neurologic: + problem reported (CHITIMACHA) Physical Exam Constitutional: not in distress Eyes: PERRL, conjunctivae normal, anicteric sclerae ENMT: external ear and nose normal, oropharynx normal Neck: trachea midline, no thyromegaly Respiratory: Auscultation: + diminished lung sounds (Right base) Cardiovascular: Rate/Rhythm: regular rate and regular rhythm Extremities: + edema (3+ pretibial pitting edema) Gastrointestinal (Abdomen): normal bowel sounds, soft, nontender, no hepatosplenomegaly Skin: no rashes, warm and dry Psychiatric: Affect: + anxious affect Results & Data Vital Signs (Past 12 Hours) Vital Signs Temp Pulse Resp BP Pulse Ox O2 Del Method O2 Flow Rate 05/28/24 07:00 36.5 C 60 20 103/67 95 Room Air 05/28/24 05:07 36.5 C 101 H 18 100/62 99 Nasal Cannula 1 05/28/24 00:08 36.7 C 59 L 18 109/69 97 Room Air Laboratory Results Laboratory Results - last 24 hr 05/28/24 06:46 WBC 12.44 H RBC 3.31 L Hgb 10.4 L Hct 33.1 L MCV 100.0 MCH 31.4 MCHC 31.4 L RDW Std Deviation 65.6 H RDW Coeff of Nino 20.2 H Plt Count 195 MPV 10.6 Absolute Nucleated RBC 0.07 Nucleated RBC % (auto) 0.6 Sodium 138 Potassium 3.8 Chloride 105 Carbon Dioxide 24 Anion Gap 9 BUN 28 H Creatinine 3.03 H Est Cr Clr Drug Dosing 17.0 Est GFR ( Amer) 16.1 Est GFR (Non-Af Amer) 13.9 BUN/Creatinine Ratio 9.2 L Glucose 122 H Calcium 8.8 Diagnostic Findings 05/27/24 CXR: Lines and tubes are stable. Aortic valvular prosthesis is seen. There is prominence and cephalization of the vasculature with Melva B lines seen. Small bilateral pleural effusions are seen. PG Care Time/CCT Total # of Minutes Spent Total Time Spent with Patient: Total time spent is greater than 50% in coordination of care (as documented) at patient's floor/unit and/or counseling patient: Coding Level of Care Code 94293 SUB INP/OBS CARE 3/50MIN Diagnoses Hypoxia R09.02 End stage chronic kidney disease N18.6 Anemia D64.9
--- NOTE | 2024-05-28 18:21 | Hospitalist Progress Note ---
Date of Service May 28, 2024 Assessment & Plan (1) HFrEF (heart failure with reduced ejection fraction): Plan: (1) HFrEF (heart failure with reduced ejection fraction): Plan: - Hx of HFrEF; echo from 04/2024 showing progression to severe aortic stenosis, moderate to severe MR, EF 30-35%, positive wall motion abnormalities. - Readmitted on 05/25/24 after spending ~ 12 hours at [facility] for acute on chronic HFrEF/flash pulm edema despite just having dialysis on 05/26/24 and had been stable for days awaiting rehab placement during prior admission - She did go back into Afib but rates controlled in 80-90s on day of discharge (05/24) but perhaps this caused some backup of fluid into the lungs? - BNP significantly elevated, chest x-ray appears worse than previous with pulmonary edema and effusions - Was initiated on hemodialysis last admission for volume management and oliguria in setting of ALLAN H/o CAD- not a candidate for CABG when evaluated several years ago Has ICD in place Cardiology and Nephrology consults placed-appreciate recommendations Had urgent dialysis on the evening of 05/25 after admission and going for dialysis again on 05/26. Significantly improved, weaned off oxygen now, no longer tachypneic or hypoxic Continue rate control of A-fib- continue Toprol-XL 25 Mg p.o. twice daily Entresto, spironolactone, and SGLT 2 not able to be given due to poor renal function. Follow daily weights, strict I's and O's, fluid restrict to 1200mL, hemodialysis to manage volume status --> Needs eval for TAVR -- prefers to have done at [facility] --> needs left heart cath first (perhaps this can be done here at [facility] on 05/29/24?) NPO at midnight in case. [facility] also requested Chest CTA with TAVR protocol -- unsure if we offer this protocol here. (2) Hypoxia: Plan: 2/2 flash pulm edema as above-now resolved after receiving extra dialysis Follow chest x-ray periodically -- resolved (3) Chronic kidney disease, stage IV (severe): Plan: With ALLAN in the setting of CKD stage IV. She began hemodialysis on May 17 and had several dialysis sessions, the most recent on 05/24 prior to discharge from last admission. Receiving extra dialysis sessions on 05/25 and 05/[address] Renally dose medications, avoid nephrotoxins Appreciate nephrology consultation Already has outpatient hemodialysis arranged at [facility] Wednesday for when she returns to [facility] facility at discharge (4) Paroxysmal ventricular tachycardia: Plan: Occurred on May 10 during last admission. ICD was placed on May 12. Surgical site is unremarkable. Appreciate cardiology consultation. Amiodarone uptitrated on May 20 due to recurrent runs of nonsustained V. tach. Continue amiodarone 200 Mg p.o. twice daily No lifting LUE above level of shoulder for 5 more weeks-can likely have her Steri-Strips removed prior to this discharge if they do not fall off before then Consult cardiology appreciated (5) Aortic stenosis: Plan: Moderate-severe as seen on cardiac echo. Needs outpatient evaluation for TAVR which will be arranged by her primary dental internship. Avoid overdiuresis and low blood pressure (6) CAD (coronary artery disease): Plan: With elevated troponin on admission in the 200s, no chest pain but also with mildly elevated LFTs-prep she had a hypotensive event? In the setting of aortic stenosis. No evidence of syncope by history. Trended serial troponins and remained stable each time in the 200s-this is not acute coronary syndrome and rather is likely demand ischemia in the setting of renal failure Consult cardiology Continue Plavix, metoprolol, atorvastatin (7) GERD (gastroesophageal reflux disease): Plan: Continue PPI (8) DM2 (diabetes mellitus, type 2): Plan: Most recent hemoglobin A1c only 6.3% She is not on medications for this as an outpatient No need for insulin checks (9) PAF (paroxysmal atrial fibrillation): Plan: She has paroxysms of atrial fibrillation, the most recent on 05/24. She continues to remain in a sinus rhythm here with rates in the 60s, paced at times Continue amiodarone, renally dosed Eliquis Monitor on telemetry (10) CLL (chronic lymphocytic leukemia): Plan: With leukocytosis secondary to CLL and stress Iron deficiency noted. She has received parenteral iron replacement last admission Follow with hematology as an outpatient Follow CBC Plan DVT prophylaxis-Eliquis Disposition-continued stay on Med/Tele, eventually back to [facility] facility [facility] for rehab Full code as per discussion with patient with her paid advocate at her bedside Admission and Anticipated Discharge Date Admission Date: May 25, 2024 Subjective Patient doing well -- amenable to pursuing TAVR at [facility] Review of Systems Review of Systems: All systems reviewed & are unremarkable except as noted in HPI & below Physical Exam Constitutional: WD/WN, vitals as above Eyes: + anicteric sclerae ENMT: external ear and nose normal, oropharynx normal Neck: trachea midline, no thyromegaly Respiratory: normal respiratory effort, lungs clear to auscultation Cardiovascular: Rate/Rhythm: regular rate Heart Sounds: normal S1, normal S2 and + murmur (systolic ejection ) Musculoskeletal: Head/Neck/Chest: normocephalic and head atraumatic Skin: no rashes, warm and dry Psychiatric: A+Ox3, euthymic affect Results & Data Results & Data Vital Signs (Past 12 Hours) Vital Signs Temp Pulse Pulse Resp BP BP Pulse Ox 05/28/24 16:00 60 05/28/24 14:40 36.4 C L 56 L 20 109/72 96 05/28/24 10:36 36.6 C 59 L 19 108/72 98 05/28/24 09:12 61 05/28/24 09:12 05/28/24 07:00 36.5 C 60 20 103/67 95 O2 Del Method 05/28/24 16:00 05/28/24 14:40 Room Air 05/28/24 10:36 Room Air 05/28/24 09:12 05/28/24 09:12 Room Air 05/28/24 07:00 Room Air PG Care Time/CCT Total # of Minutes Spent Total Time Spent with Patient: Total time spent is greater than 50% in coordination of care (as documented) at patient's floor/unit and/or counseling patient: C[place] [address] SUB INP/OBS CARE 2/35MIN Patient Type Established Diagnoses HFrEF (heart failure with reduced ejection fraction) I50.20
[2024-05-29 06:56] LABS: BUN Creatinine Ratio 10.1 (10-20); Calcium 8.7 mg/dl (8.6-10.3); Creatinine Clr Calc Pharmacy 13.5 ml/min; Est GFR (African American) 12.4 ml/min; Est GFR (Non-African American) 10.7 ml/min; Potassium 3.8 mmol/L (3.5-5.1)
[2024-05-29] MEDS ORDERED: SODIUM CHLORIDE 0.9% 1,000 ML IV PRN (07:00)
--- NOTE | 2024-05-29 08:41 | Nephrology Progress Note ---
Date of Service May 29, 2024 Assessment & Plan (1) Hypoxia: Plan: * Resolved. Patient was breathing comfortably on room air. * HD provided 05/24, 05/25, 05/26, 05/27/24. Each treatment removed 2 L volume * On exam patient has improved breath sounds at the right base but persistent bilateral lower extremity pitting edema * 05/27/24 CXR post HD did reveal small bilateral pleural effusions * Will provide hemodialysis today and utilize Crit-line monitor to guide UF. Orders have been placed in EMR and trust evaluation supervisor HD RN notified (2) End stage chronic kidney disease: Plan: * ESKD due to CRS. First HD provided 05/17/2024 * Patient is now dialysis dependent, utilizing right IJ TCC as vascular access * Outpatient hemodialysis has been set up with [facility] (3) Anemia: Plan: * History of CLL. Completed IV iron replacement during recent hospitalization. Hemoglobin stable. * Epogen 4000 units and venofer 100 mg provided with HD 05/26/2024 (4) Aortic stenosis: Plan: * Severe * Patient may benefit from transfer to tertiary [facility] for cardiac naomi terization, evaluation for TAVR. Await cardiology input (5) ICD (implantable cardioverter-defibrillator) in place: Plan: * h/o VT, torsades Admission and Anticipated Discharge Date Admission Date: May 25, 2024 Subjective Ms. Diaz was evaluated in her hospital room this morning. Her daughter Lita was present at bedside. Ms. Diaz was breathing comfortably on RA. Review of Systems Constitutional: no fever Eyes: no problem reported Ear, Nose, Mouth, Throat: no problem reported Respiratory: no cough and no dyspnea Cardiovascular: no chest pain Gastrointestinal: no abdominal pain Integumentary: no rash Neurologic: + problem reported (POKAGON) Physical Exam Constitutional: not in distress Eyes: PERRL, conjunctivae normal, anicteric sclerae ENMT: external ear and nose normal, oropharynx normal Neck: trachea midline, no thyromegaly Respiratory: Auscultation: + diminished lung sounds (Right base) Cardiovascular: Rate/Rhythm: regular rate and regular rhythm Extremities: + edema (3+ pretibial pitting edema) Gastrointestinal (Abdomen): normal bowel sounds, soft, nontender, no hepatosplenomegaly Skin: no rashes, warm and dry Results & Data Vital Signs (Past 12 Hours) Vital Signs Temp Pulse Resp BP Pulse Ox O2 Del Method 05/29/24 07:38 36.8 C 60 18 153/68 H 98 Room Air 05/29/24 03:48 36.5 C 82 18 103/68 99 Room Air 05/29/24 00:03 36.5 C 60 20 116/70 96 Room Air Laboratory Results Laboratory Results - last 24 hr 05/29/24 06:17 Sodium 136 Potassium 3.8 Chloride 103 Carbon Dioxide 23 Anion Gap 10 BUN 38 H Creatinine 3.76 H D Est Cr Clr Drug Dosing 13.5 Est GFR ( Amer) 12.4 Est GFR (Non-Af Amer) 10.7 BUN/Creatinine Ratio 10.1 Glucose 119 H Calcium 8.7 PG Care Time/CCT Total # of Minutes Spent Total Time Spent with Patient: Total time spent is greater than 50% in coordination of care (as documented) at patient's floor/unit and/or counseling patient: Coding Level of Care Code 45522 SUB INP/OBS CARE 3/50MIN Diagnoses Hypoxia R09.02 End stage chronic kidney disease N18.6 Anemia D64.9 Aortic stenosis I35.0 ICD (implantable cardioverter-defibrillator) in place Z95.810
[2024-05-29] MEDS: EPOETIN ALFA 10,000 UNITS/ML VIAL IV ONE (12:14)
[2024-05-29 15:40] VITALS: TEMP 97.9
--- NOTE | 2024-05-29 16:41 | Communication Note ---
Date of Service: May 29, 2024 *End stage renal disease Patient receiving dialysis Risk Factor(s): Dialysis dependent, GFR 10-14 Treatment: Nephro consult, hemodialysis, I&O
--- NOTE | 2024-05-29 16:42 | Discharge Summary ---
Discharge Summary Date of Service May 29, 2024 Principal Dx & Hospital Course #1 = Principal Diagnosis (1) HFrEF (heart failure with reduced ejection fraction): Presents again with acute on chronic HFrEF/flash pulm edema despite just having dialysis yesterday and had been stable for days awaiting rehab placement during prior admission She did go back into Afib but rates controlled in 80-90s on day of discharge 05/24 but perhaps this caused some backup of fluid into the lungs? BNP significantly elevated, chest x-ray appears worse than previous with pulmonary edema and effusions Was initiated on hemodialysis last admission for volume management and oliguria in setting of ALLAN Last admission w/ Echo w/ progression to severe aortic stenosis, moderate to severe MR, EF 30-35%, positive wall motion abnormalities. With H/o CAD- not a candidate for CABG when evaluated several years ago Has ICD in place Cardiology and Nephrology consults placed-appreciate recommendations Had urgent dialysis on the evening of 05/25 after admission and going for dialysis again on 05/26 Significantly improved, weaned off oxygen now, no longer tachypneic or hypoxic Continue rate control of A-fib- continue Toprol-XL 25 Mg p.o. twice daily Entresto, spironolactone, and SGLT 2 not able to be given due to poor renal function. Follow daily weights, strict I's and O's, fluid restrict to 1200mL, hemodialysis to manage volume status Needs eval for TAVR after stabilized and discharged (2) Hypoxia: 2/2 flash pulm edema as above-now resolved after receiving extra dialysis Follow chest x-ray periodically (3) Chronic kidney disease, stage IV (severe): ESRD With ALLAN in the setting of CKD stage IV. She began hemodialysis on May 17 and had several dialysis sessions, the most recent on 05/24 prior to discharge from last admission. Receiving extra dialysis sessions on 05/25 and 05/[address] Renally dose medications, avoid nephrotoxins Appreciate nephrology consultation Already has outpatient hemodialysis arranged at [facility] Wednesday for when she returns to jail facility at discharge (4) Paroxysmal ventricular tachycardia: Occurred on May 10 during last admission. ICD was placed on May 12. Surgical site is unremarkable. Appreciate cardiology consultation. Amiodarone uptitrated on May 20 due to recurrent runs of nonsustained V. tach. Continue amiodarone 200 Mg p.o. twice daily No lifting LUE above level of shoulder for 5 more weeks-can likely have her Steri-Strips removed prior to this discharge if they do not fall off before then Consult cardiology appreciated (5) Aortic stenosis: Moderate-severe as seen on cardiac echo. Needs outpatient evaluation for TAVR which will be arranged by her primary memorial marker designer. Avoid overdiuresis and low blood pressure (6) CAD (coronary artery disease): With elevated troponin on admission in the 200s, no chest pain but also with mildly elevated LFTs-prep she had a hypotensive event? In the setting of aortic stenosis. No evidence of syncope by history. Trended serial troponins and remained stable each time in the 200s-this is not acute coronary syndrome and rather is likely demand ischemia in the setting of renal failure Consult cardiology Continue Plavix, metoprolol, atorvastatin (7) GERD (gastroesophageal reflux disease): Continue PPI (8) DM2 (diabetes mellitus, type 2): Most recent hemoglobin A1c only 6.3% She is not on medications for this as an outpatient No need for insulin checks (9) PAF (paroxysmal atrial fibrillation): She has paroxysms of atrial fibrillation, the most recent on 05/24. She continues to remain in a sinus rhythm here with rates in the 60s, paced at times Continue amiodarone, renally dosed Eliquis Monitor on telemetry (10) CLL (chronic lymphocytic leukemia): With leukocytosis secondary to CLL and stress Iron deficiency noted. She has received parenteral iron replacement last admission Follow with hematology as an outpatient Follow CBC Plan DVT prophylaxis-Eliquis Disposition-continued stay on PCU, eventually back to jail facility [facility] [place] [facility] for rehab-likely on Wednesday Full code as per discussion with patient with her paid advocate at her bedside Admission HPI Per Admitting Provider This patient is an 78-year-old female who was just discharged from the hospital by myself yesterday after a prolonged hospitalization for acute kidney injury on CKD stage IV, acute on chronic HFrEF, sustained ventricular tachycardia s/p ICD placement, severe aortic stenosis, moderate-severe mitral regurgitation, CAD, paroxysmal atrial fibrillation, and CLL who presents from jail facility with acute onset of shortness of breath and tachypnea this morning. She was noted to be hypoxic at the senior living and placed on 2 L nasal cannula. Her vital signs were otherwise normal. She denies any chest pains or light headedness, no abdominal pains. She was apparently doing well as per the physician at the senior living when she was initially assessed yesterday evening, just like she was when I saw her yesterday morning. She did have some atrial fibrillation yesterday before she left the hospital with rates in the 80s-90s, but is currently in a sinus/paced rhythm again. She also received hemodialysis yesterday prior to discharge. Chest x-ray here shows worsening pulmonary edema and pleural effusions, she is requiring 5 L nasal cannula to keep pulse ox greater than 92%. She will be admitted for urgent dialysis I discussed her care with nephrology and cardiology at the time of admission Discharge Plan Discharge Items Reason For Visit: CHF Follow-up/Referrals: Roddy Woodruff III, MD [Primary Care Provider] - Medications and DC Order Prescriptions: No Action atorvastatin [Lipitor] 80 mg tablet 80 mg PO HS Qty: 90 3RF (DME) Comfort Touch Ult Thin Lancets 31 gauge misc See Rx Instructions .Route Qty: 100 3RF Rx Instructions: pt tests every other day nitroglycerin [Nitrostat] 0.4 mg tablet, sublingual 0.4 mg sublingual UD PRN (Reason: Chest Pain) Qty: 25 1RF Rx Instructions: 1 tablet every 5 minutes as needed for chest pain x 3 doses (DME) OneTouch Verio test strips Strip See Rx Instructions .ROUTE .MEDSUPPLY Qty: 100 1RF Rx Instructions: check once daily Dx code: E11.9 fluticasone propionate 50 mcg/actuation spray,suspension 1 spray intranasal QAM Qty: 48 1RF amiodarone 200 mg tablet 200 mg PO AMHS clopidogrel 75 mg tablet 75 mg PO HS acetaminophen [Tylenol Extra Strength] 500 mg tablet 1,000 mg PO Q8H MDD 3g PRN (Reason: Fever Or Pain) albuterol sulfate 90 mcg/actuation HFA aerosol inhaler 1 puff inhalation Q6H PRN (Reason: Shortness Of Breath Or Wheezing) Rx Instructions: INHALE 1 PUFF BY MOUTH EVERY 6 HOURS NEEDED FOR SHORTNESS OF BREATH cholecalciferol (vitamin D3) 50 mcg (2,000 unit) tablet 2,000 unit PO HS fexofenadine 180 mg tablet 180 mg PO HS folic acid 1 mg tablet 1 mg PO HS pantoprazole 40 mg tablet,delayed release (DR/EC) 40 mg PO HS metoprolol succinate 25 mg tablet extended release 24 hr 25 mg PO AMHS mecobalamin (vitamin B12) 1,000 mcg tablet,disintegrating 1,000 mcg sublingual HS Rx Instructions: place tablet under tongue and allow to dissolve for at least30 secs before swallowing sertraline [Zoloft] 100 mg tablet 100 mg PO HS Eliquis 2.5 mg Tablet 2.5 mg PO BID Qty: 60 0RF polyethylene glycol 3350 [Miralax] 17 gram/dose powder 17 g PO DAILY PRN (Reason: constipation) Qty: 119 0RF Admission Data Admit Date/Time: 05/25/24 14:35 Attending Provider: Tello Brooks Admit Provider: Danielle Huitron Primary Care Provider: Roddy Woodruff III Other Providers: Osvaldo Horn; Danielle Huitron; Rigo Robison; [facility] Hospital Stay Data Consultations 05/25/24 14:19 ED Decision to Admit Stat 05/25/24 14:35 Consult Nephrology Stat 05/25/24 16:45 Consult Cardiology Routine 05/28/24 17:59 Burn CD for patient Routine Coding Diagnoses HFrEF (heart failure with reduced ejection fraction) I50.20 Hypoxia R09.02 Chronic kidney disease, stage IV (severe) N18.4 Paroxysmal ventricular tachycardia I47.29 Aortic stenosis I35.0 CAD (coronary artery disease) I25.10 GERD (gastroesophageal reflux disease) K21.9 DM2 (diabetes mellitus, type 2) E11.9 PAF (paroxysmal atrial fibrillation) I48.0 CLL (chronic lymphocytic leukemia) C91.90
[2024-05-29 20:01] VITALS: BP 119/74; RESP 16; O2SAT 94
[2024-05-29 22:58] VITALS: PULSE 65
== END 2024-05-30 01:05 | disposition short-term general hospital (02) | DRG 291 ==
LOC: SUATTDRO → ED 13:10 → 4W 14:35 → SUATTDRO 14:35 → 4W 16:04

== ENCOUNTER 2024-07-29 08:53 | Inpatient (IN) ==
[2024-07-29 09:31] LABS: Base Excess VBG -3.5 mEq/L; HCO3 VBG 24 mmol/L; Oxygen Saturation VBG 61.7 %; PCO2 VBG 54 mmHg (38-50); PO2 VBG 41 mmHg; pH VBG 7.26 (7.36-7.41)
--- NOTE | 2024-07-29 09:31 | XRay Report ---
XR chest 1V portable HISTORY: 78 years-old Female Dyspnea acute shortness of breath COMPARISON: 05/27/2024 TECHNIQUE: AP view of the chest FINDINGS: Cardiac silhouette is enlarged. Dual lead left subclavian pacer/AICD. Dual-lumen right IJ hemodialysi s catheter is unchanged. No pneumothorax. Pulmonary edema with layering pleural effusions and right g reater than left bibasilar consolidation redemonstrated, not significant change from the prior study. Bones appear grossly intact. IMPRESSION: 1. Cardiomegaly with pulmonary edema. 2. Right greater than left layering pleural effusions with bibasilar consolidation is similar to the prior study. ACT 112: Negative or not required by law. The above report was generated using voice recognition software. It may contain grammatical, syntax o r spelling errors. Electronically signed by: Justus Baires M.D. 07/29/2024 9:29 AM
--- NOTE | 2024-07-29 09:35 | Emergency Department Note ---
Impression & Plan Acute hypoxemic respiratory failure, Sepsis, Pulmonary edema, Acute dyspnea, Non-ST elevation RI (NSTEMI), Elevated brain natriuretic peptide (BNP) level, Leukocytosis, ESRD on dialysis ED Provider Note HISTORY OF PRESENT ILLNESS: Patient is an 78-year-old female presenting with shortness of breath. Patient presents from [facility] where about 1 hour prior to arrival she started having significant difficulties breathing. She does not wear any supplemental oxygen at baseline. She had saturations of 78% on 4 L nasal cannula on EMS arrival. She was transition to a CPAP and seemed to respond well to this. She was given 125 mg Solu-Medrol prehospital. She saturating 93% on the CPAP. She was also given a DuoNeb. She is currently being treated on oral antibiotics for a UTI. Patient denies any chest pain arrival to the ER, she reports her breathing is significantly improved on an oxy mask. Denies any abdominal pain, nausea or vomiting. She is an ESRD patient and receives dialysis Wednesday/Wednesday/Wednesday. She reports she did receive a full session yesterday. ROS: as above PHYSICAL EXAM: Constitutional: Patient appears in no acute distress. HENT: Head: Normocephalic and atraumatic. Eyes: EOMI, PERRL Mouth/Throat: Mucous membranes moist. Neck: Trachea midline. Neck supple. Cardiovascular: RRR, No murmurs, rubs or gallops. Intact distal pulses. Pulmonary/Chest: No respiratory distress. Breath sounds clear and equal bilaterally. Coarse breath sounds bilaterally. Patient on 10 L oxy mask. Noted to have dialysis access in the right upper chest in the subclavian. Abdominal: Abdomen soft, no tenderness, rebound or guarding. Musculoskeletal: No edema, tenderness or deformity noted. Skin: Warm and dry. No rash, erythema, pallor or cyanosis Psychiatric: Appropriate mood and affect for situation. Neurological: Alert and keenly responsive. CN II-XII grossly intact, moving all extremities equally and fully. MDM: - Vitals signs showed hypertension and tachypnea - History obtained via EMS and patient. History as above. - Chronic conditions affecting care: CAD (s/p PCI); GERD; HLD; HTN; ESRD on HD; CVA - Differential diagnoses include, but are not limited to: Congestive heart failure; acute coronary syndrome; COPD/asthma exacerbation; pulmonary edema; pulmonary embolism; pneumonia; pneumothorax; viral syndrome - Order placed for continuous cardiac monitoring. At this time, monitor showed rate of 60 bpm with normal sinus rhythm, per my interpretation. - External medical records reviewed. Cardiology visit note dated 07/27/2024 was reviewed. Patient follows in their clinic for her heart failure with reduced ejection fraction. She had an echo in May 2024 which showed an EF of 20 to 24%. - EKG interpreted by myself showed normal sinus rhythm. Rate 63 bpm. QT 504. No acute ischemic changes. Patient does appear to have some ST elevations in lead V1. However, this appears similar to ST elevation on previous EKG from May 30, 2024. - Laboratory workup interpreted by myself showed leukocytosis (WBC 23.32); normal PT/NR; normal procalcitonin; normal potassium; elevated anion gap (12); ESRD; elevated lactate (2.3); elevated troponin (49.2); elevated BNP (1712) - Repeat troponin elevated at 96.8 - Blood cultures obtained - VBG with acidosis (pH 7.26) - CXR negative for pneumonia, per my interpretation. Noted to have pulmonary edema. Radiology notes right greater than left layering pleural effusion with bibasilar consolidation similar to previous study. - Viral respiratory panel negative - Patient given 2g IV cefepime for sepsis coverage. - Fluid administration was not provided for sepsis, given that the patient is an ESRD patient, has an EF of 20-24%, and already noted to have some fluid overload with her pulmonary edema. - Discussion was had with child welfare caseworker about patient's case and need for admission - Hospitalist consulted for admission - Patient admitted to [facility] service for further evaluation and management. ASSESSMENT AND PLAN: Diagnosis: acute hypoxemic respiratory failure; sepsis; pulmonary edema; acute dyspnea; NSTEMI; elevated BNP; leukocytosis; ESRD on dialysis Plan: admit Past Med/Surg History Problem List (Updated 07/29/24 @ 12:42 by Tameka Azevedo MD) ESRD on dialysis (Acute) Leukocytosis (Acute) Elevated brain natriuretic peptide (BNP) level (Acute) Non-ST elevation RI (NSTEMI) (Acute) Acute dyspnea (Acute) Pulmonary edema (Acute) Sepsis (Acute) Acute hypoxemic respiratory failure (Acute) Sepsis End stage chronic kidney disease Elevated troponin I level (Acute) Hypoxia (Acute) Hyponatremia Anemia ICD (implantable cardioverter-defibrillator) in place Paroxysmal ventricular tachycardia S/P coronary artery stent placement Mitral regurgitation Aortic stenosis HFrEF (heart failure with reduced ejection fraction) Acute kidney injury Chronic kidney disease, stage IV (severe) (Acute) Weakness (Acute) PND (post-nasal drip) DNS (deviated nasal septum) Otalgia of both ears Acute bronchitis Toxic encephalopathy Radicular low back pain Spinal stenosis Pulmonary edema (Acute) Anxiety Chronic cough Physician orders for life-sustaining treatment (POLST) form indicates patient wish for full code resuscitation status CKD (chronic kidney disease) stage 3, GFR 30-59 ml/min Compression fracture GERD (gastroesophageal reflux disease) (Chronic) Dyslipidemia (Chronic) CAD (coronary artery disease) Chronic combined systolic and diastolic CHF (congestive heart failure) Left ventricular dysfunction Medical History 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 DR KENNEDY - NO HX CARDIOVERSION Myocardial Infarction 2010 & 2019...STENT X 1 Asthma LAST USE LAST WEEK Surgical History Hx of cataract surgery B/L H/O heart artery stent HX RI , STENT X1 2019 History of phacoemulsification of cataract of both eyes with intraocular lens implantation History of dilatation and curettage x3 History of total left knee replacement (TKR) History of right breast biopsy x3--benign History of laparoscopy History of bilateral breast reduction surgery History of colonoscopy Family History Mother Family history of diabetes mellitus Myocardial infarction Family/Other Family history of diabetes mellitus cousin Aunt Breast cancer Father Myocardial infarction Stroke Other No family history of adverse response to anesthesia Denies family history of Ovarian cancer Prostate cancer Colorectal cancer Uterine cancer Social History Smoking Status: Former smoker Tobacco Type: Cigarettes Age Started Using Tobacco: 53; Age Quit Using Tobacco: 62; Cigarettes Per Day: HX OCCASSIONAL CIGARETTE 15 YRS AGO; Second Hand Exposure: No; Do You Dip or Chew Tobacco: No; Hx Alcohol Use: No Hx Substance Use: No Preferred Language: Salvadorean Communication Ability: Effective Visual Impairment: No Limitations Hearing Ability: Use of Hearing Aid Surfacing Technician Required: No Beliefs That Will Affect Care: Yazidism Yazidism Beliefs: DRUZE marital status: / Current Living Situation: Family Current Living Situation Comment: lives with daughter current occupational status: retired current occupation: worked for [employer] Feels Safe at Home: Yes Childhood Exposure to Second-Hand Smoke: Yes Diet: low salt Diet Comment: low sodium Dental Care, Regularly: Yes Physical Activity Frequency: Does not Exercise Seatbelt Use: always Sunscreen Use: No Assistive Devices: Walker Allergies Allergies Allergy/AdvReac Type Severity Reaction Status Date / Time bee venom protein (honey bee) Allergy Severe Anaphylaxis Verified 07/29/24 11:55 Penicillins Allergy Severe Rash, Verified 07/29/24 11:55 anaphylaxis Sulfa (Sulfonamide Allergy Severe Rash, Verified 07/29/24 11:55 Antibiotics) anaphylaxis Home Meds Home Medications Medication Instructions Recorded Confirmed acetaminophen 500 mg tablet 1,000 mg PO Q8H PRN Fever Or Pain 05/25/24 07/27/24 (Tylenol Extra Strength) albuterol sulfate 90 mcg/actuation 1 puff inhalation Q6H PRN 05/25/24 07/27/24 aerosol inhaler Shortness Of Breath Or Wheezing amiodarone 200 mg tablet 200 mg PO [facility] 05/25/24 07/27/24 clopidogrel 75 mg tablet 75 mg PO HS 05/25/24 07/27/24 mecobalamin (vitamin B12) 1,000 1,000 mcg sublingual HS 05/25/24 06/29/24 mcg disintegrating tablet,sublingual metoprolol succinate 25 mg 25 mg PO [facility] 05/25/24 07/27/24 tablet,extended release 24 hr pantoprazole 40 mg tablet,delayed 40 mg PO HS 05/25/24 07/27/24 release isosorbide mononitrate 30 mg 30 mg PO DAILY 06/29/24 07/27/24 tablet,extended release 24 hr lorazepam 0.5 mg tablet 0.5 mg PO TID PRN 06/29/24 07/27/24 losartan 25 mg tablet 25 mg PO DAILY 06/29/24 07/27/24 melatonin 5 mg capsule 5 mg PO PRN insomnia 06/29/24 07/27/24 docusate sodium 100 mg tablet 100 mg PO BID 07/27/24 07/27/24 lorazepam 0.5 mg tablet 0.5 mg PO BID PRN 07/27/24 07/27/24 omeprazole 20 mg tablet,delayed 20 mg PO DAILY 07/27/24 07/27/24 release Previous Rx's Medication Instructions Recorded atorvastatin 80 mg tablet (Lipitor) 80 mg PO HS #90 tabs 08/25/23 lancets 31 gauge (Comfort Touch #100 ea 08/25/23 Ultra Thin Lancets) nitroglycerin 0.4 mg sublingual 0.4 mg sublingual UD PRN Chest 08/25/23 tablet (Nitrostat) Pain #25 tabs blood sugar diagnostic (OneTouch #100 ea 09/01/23 Verio test strips) fluticasone propionate 50 1 spray intranasal QAM #48 mL 12/02/23 mcg/actuation nasal spray,suspension apixaban 2.5 mg tablet (Eliquis) 2.5 mg PO BID #60 tabs 05/24/24 polyethylene glycol 3350 17 17 g PO DAILY PRN constipation 05/24/24 gram/dose oral powder (Miralax) #119 grams fexofenadine 180 mg tablet 180 mg PO HS #0 tabs 05/29/24 folic acid 1 mg tablet 1 mg PO DAILY #30 tabs 05/29/24 cholecalciferol (vitamin D3) 25 50 mcg (2 x 25 mcg (1,000 unit)) 06/05/24 mcg (1,000 unit) capsule PO QAM #30 caps cholecalciferol (vitamin D3) 50 2,000 unit PO HS #90 tabs 06/06/24 mcg (2,000 unit) tablet sertraline 100 mg tablet (Zoloft) 100 mg PO HS #90 tabs 06/23/24 spironolactone 25 mg tablet 25 mg PO DAILY #90 tabs 07/03/24 Results & Data (ED) Vital Signs Vital Signs - 24 hr 07/29/24 08:55 11/16/24 08:55 07/29/24 09:33 Temperature 36.4 C L Temperature Source Oral Pulse Rate 71 68 Pulse Rate [Apical] Pulse Rate from SpO2 Sensor Respiratory Rate 28 H Respiratory Effort / Characteristics Accessory Muscle Use Labored Short of Breath Short of Breath Respiratory Depth Respiratory Pattern Tachypnea Tachypnea Blood Pressure 149/94 H Blood Pressure [Left Arm] Blood Pressure Mean 112 Blood Pressure Mean [Left Arm] Blood Pressure Position [Left Arm] Pulse Oximetry 98 Oxygen Delivery Method Oxymask Oxymask Oxygen Flow Rate 10 10 Sepsis Recent Fever Within 48 Hours No Sepsis New/Unexplained Change in Mental Status No Sepsis Action Taken by Nursing No Action Required 07/29/24 09:42 07/29/24 10:59 07/29/24 10:59 Temperature Temperature Source Pulse Rate 60 60 Pulse Rate [Apical] Pulse Rate from SpO2 Sensor 59 L Respiratory Rate 18 21 Respiratory Effort / Characteristics Respiratory Depth Respiratory Pattern Blood Pressure 131/72 Blood Pressure [Left Arm] Blood Pressure Mean 91 Blood Pressure Mean [Left Arm] Blood Pressure Position [Left Arm] Pulse Oximetry 96 98 98 Oxygen Delivery Method Oxymask Oxymask Oxymask Oxygen Flow Rate 7 6 6 Sepsis Recent Fever Within 48 Hours Sepsis New/Unexplained Change in Mental Status Sepsis Action Taken by Nursing 07/29/24 10:59 07/29/24 11:30 07/29/24 12:30 Temperature 36.4 C Temperature Source Oral Pulse Rate Pulse Rate [Apical] 60 60 60 Pulse Rate from SpO2 Sensor Respiratory Rate 20 24 18 Respiratory Effort / Characteristics Spontaneous Short of Breath Non-Labored Spontaneous Spontaneous Respiratory Depth Normal Normal Normal Respiratory Pattern Regular Regular Regular Blood Pressure Blood Pressure [Left Arm] 154/76 H 142/85 H 135/73 Blood Pressure Mean Blood Pressure Mean [Left Arm] 102 104 93 Blood Pressure Position [Left Arm] Lying Semi-fowlers Semi-fowlers Pulse Oximetry 98 97 95 Oxygen Delivery Method Oxymask Oxymask Oxymask Oxygen Flow Rate 6 4 2 Sepsis Recent Fever Within 48 Hours Sepsis New/Unexplained Change in Mental Status Sepsis Action Taken by Nursing Laboratory Data 07/29/24 09:10 07/29/24 09:10 Lab Results 07/29/24 07/29/24 07/29/24 Range/Units 09:10 09:20 10:33 WBC 23.23 H (4.8-10.8) K/ul RBC 4.12 L (4.20-5.40) M/uL Hgb 13.0 (12.0-16.0) g/dl Hct 41.6 (37.0-47.0) % MCV 101.0 H (80.0-100.0) fL MCH 31.6 (25.0-34.0) pg MCHC 31.3 L (32.0-36.0) g/dL RDW Std Deviation 60.8 H (36.4-46.3) fL RDW Coeff of Nino 16.2 H (11.5-14.5) % Plt Count 229 (130-400) K/uL MPV 9.6 (9.4-12.4) fL Immature Gran % (Auto) 0.4 % Neut % (Auto) 46.6 % Lymph % (Auto) 50.0 % [place] % (Auto) 1.5 % Eos % (Auto) 1.1 % Baso % (Auto) 0.4 % Neut # (Auto) 10.82 H (1.40-6.50) K/uL Lymph # (Auto) 11.62 H (1.20-3.40) K/uL [place] # (Auto) 0.34 (0.11-0.59) K/uL Eos # (Auto) 0.25 (0.00-0.50) K/uL Baso # (Auto) 0.10 (0.00-0.20) K/uL Immature Gran # (Auto) 0.10 (0.01-0.20) K/uL Smudge Cells Present Polychromasia 1+ Tear Drop Cells 1+ Ovalocytes 1+ PT 11.9 (9.0-12.0) Seconds INR 1.1 (0.9-1.1) VBG pH 7.26 L (7.36-7.41) VBG pCO2 54 H (38-50) mmHg VBG pO2 41 mmHg VBG HCO3 24 mmol/L VBG O2 Saturation 61.7 % VBG Base Excess -3.5 mEq/L Sodium 138 (136-145) mmol/L Potassium 4.2 (3.5-5.1) mmol/L Chloride 103 (98-107) mmol/L Carbon Dioxide 23 (21-32) mmol/L Anion Gap 12 H (3-11) BUN 24 H (6-23) mg/dl Creatinine 2.78 H (0.6-1.2) mg/dl Est Cr Clr Drug Dosing 16.9 ml/min eGFR 16.70 BUN/Creatinine Ratio 8.6 L (10-20) Glucose 230 H (70-99(Fasting)) mg/dl Lactate 2.3 H* (0.4-2.0) mmol/L Calcium 10.4 H (8.6-10.3) mg/dl Magnesium 1.9 (1.7-2.4) mg/dl Total Bilirubin 0.6 (0.2-1.0) mg/dl AST 36 (13-39) U/L ALT 29 (7-52) U/L Alkaline Phosphatase 130 H (34-104) U/L Troponin I High Sens 49.2 H (0-14) pg/ml B-Natriuretic Peptide 1712 H (0-100) pg/ml Total Protein 6.5 (6.0-8.3) gm/dl Albumin 3.8 (3.4-5.0) gm/dl Globulin 2.7 (2.5-4.0) gm/dl Albumin/Globulin Ratio 1.4 (0.9-2) Procalcitonin 0.28 (0-0.5) ng/ml Adenovirus (PCR) Not Detected (NotDetected) B. pertussis DNA (PCR) Not Detected (NotDetected) B.parapertussis DNA PCR Not Detected (NotDetected) C. pneumoniae DNA (PCR) Not Detected (NotDetected) Coronavirus OC43 (PCR) Not Detected (NotDetected) Coronavirus HKU1 (PCR) Not Detected (NotDetected) Coronavirus 229E (PCR) Not Detected (NotDetected) SARS-CoV-2 (PCR) Not Detected (NotDetected) Coronavirus NL63 (PCR) Not Detected (NotDetected) Human Metapneumovir PCR Not Detected (NotDetected) Influenza Type A (PCR) Not Detected (NotDetected) Influenza Type B (PCR) Not Detected (NotDetected) M. pneumoniae (PCR) Not Detected (NotDetected) Parainfluenza 1 (PCR) Not Detected (NotDetected) Parainfluenza 2 (PCR) Not Detected (NotDetected) Parainfluenza 3 (PCR) Not Detected (NotDetected) Parainfluenza 4 (PCR) Not Detected (NotDetected) RSV (PCR) Not Detected (NotDetected) Entero/Rhino (PCR) Not Detected (NotDetected) 07/29/24 Range/Units 11:06 WBC (4.8-10.8) K/ul RBC (4.20-5.40) M/uL Hgb (12.0-16.0) g/dl Hct (37.0-47.0) % MCV (80.0-100.0) fL MCH (25.0-34.0) pg MCHC (32.0-36.0) g/dL RDW Std Deviation (36.4-46.3) fL RDW Coeff of Nino (11.5-14.5) % Plt Count (130-400) K/uL MPV (9.4-12.4) fL Immature Gran % (Auto) % Neut % (Auto) % Lymph % (Auto) % [place] % (Auto) % Eos % (Auto) % Baso % (Auto) % Neut # (Auto) (1.40-6.50) K/uL Lymph # (Auto) (1.20-3.40) K/uL [place] # (Auto) (0.11-0.59) K/uL Eos # (Auto) (0.00-0.50) K/uL Baso # (Auto) (0.00-0.20) K/uL Immature Gran # (Auto) (0.01-0.20) K/uL Smudge Cells Polychromasia Tear Drop Cells Ovalocytes PT (9.0-12.0) Seconds INR (0.9-1.1) VBG pH (7.36-7.41) VBG pCO2 (38-50) mmHg VBG pO2 mmHg VBG HCO3 mmol/L VBG O2 Saturation % VBG Base Excess mEq/L Sodium (136-145) mmol/L Potassium (3.5-5.1) mmol/L Chloride (98-107) mmol/L Carbon Dioxide (21-32) mmol/L Anion Gap (3-11) BUN (6-23) mg/dl Creatinine (0.6-1.2) mg/dl Est Cr Clr Drug Dosing ml/min eGFR BUN/Creatinine Ratio (10-20) Glucose (70-99(Fasting)) mg/dl Lactate 2.3 H* (0.4-2.0) mmol/L Calcium (8.6-10.3) mg/dl Magnesium (1.7-2.4) mg/dl Total Bilirubin (0.2-1.0) mg/dl AST (13-39) U/L ALT (7-52) U/L Alkaline Phosphatase (34-104) U/L Troponin I High Sens 96.8 H* D (0-14) pg/ml B-Natriuretic Peptide (0-100) pg/ml Total Protein (6.0-8.3) gm/dl Albumin (3.4-5.0) gm/dl Globulin (2.5-4.0) gm/dl Albumin/Globulin Ratio (0.9-2) Procalcitonin (0-0.5) ng/ml Adenovirus (PCR) (NotDetected) B. pertussis DNA (PCR) (NotDetected) B.parapertussis DNA PCR (NotDetected) C. pneumoniae DNA (PCR) (NotDetected) Coronavirus OC43 (PCR) (NotDetected) Coronavirus HKU1 (PCR) (NotDetected) Coronavirus 229E (PCR) (NotDetected) SARS-CoV-2 (PCR) (NotDetected) Coronavirus NL63 (PCR) (NotDetected) Human Metapneumovir PCR (NotDetected) Influenza Type A (PCR) (NotDetected) Influenza Type B (PCR) (NotDetected) M. pneumoniae (PCR) (NotDetected) Parainfluenza 1 (PCR) (NotDetected) Parainfluenza 2 (PCR) (NotDetected) Parainfluenza 3 (PCR) (NotDetected) Parainfluenza 4 (PCR) (NotDetected) RSV (PCR) (NotDetected) Entero/Rhino (PCR) (NotDetected) Administered Medications Discontinued Medications Cefepime HCl (Maxipime 2000mg) 2,000 mg in 20 mls @ 5 mls/min IV NOW STA; Protocol Stop: 07/29/24 11:58 Last Admin: 07/29/24 12:32 Dose: 5 mls/min Documented By: THIEN Imaging Data Radiologist's Impression: Chest X-Ray 07/29/24 08:55 XR chest 1V portable HISTORY: 78 years-old Female Dyspnea acute shortness of breath COMPARISON: 05/27/2024 TECHNIQUE: AP view of the chest FINDINGS: Cardiac silhouette is enlarged. Dual lead left subclavian pacer/AICD. Dual-lumen right IJ hemodialysis catheter is unchanged. No pneumothorax. Pulmonary edema with layering pleural effusions and right greater than left bibasilar consolidation redemonstrated, not significant change from the prior study. Bones appear grossly intact. IMPRESSION: 1. Cardiomegaly with pulmonary edema. 2. Right greater than left layering pleural effusions with bibasilar consolidation is similar to the prior study. ACT 112: Negative or not required by law. The above report was generated using voice recognition software. It may contain grammatical, syntax or spelling errors. Electronically signed by: Justus Baires M.D. 07/29/2024 9:29 AM Discharge Plan Visit Data Chief Complaint: Shortness of Breath/Dyspnea Stated Complaint: SHORTNESS OF BREATH ED Provider: Tameka Azevedo Discharge Problem: Acute hypoxemic respiratory failure, Sepsis, Pulmonary edema, Acute dyspnea, Non-ST elevation RI (NSTEMI), Elevated brain natriuretic peptide (BNP) level, Leukocytosis, ESRD on dialysis Forms Stand Alone Forms: My [facility] [place] [facility] Prescriptions Prescriptions: No Action atorvastatin [Lipitor] 80 mg tablet 80 mg PO HS Qty: 90 3RF (DME) Comfort Touch Ult Thin Lancets 31 gauge misc See Rx Instructions .Route Qty: 100 3RF Rx Instructions: pt tests every other day nitroglycerin [Nitrostat] 0.4 mg tablet, sublingual 0.4 mg sublingual UD PRN (Reason: Chest Pain) Qty: 25 1RF Rx Instructions: 1 tablet every 5 minutes as needed for chest pain x 3 doses (DME) OneTouch Verio test strips Strip See Rx Instructions .ROUTE .MEDSUPPLY Qty: 100 1RF Rx Instructions: check once daily Dx code: E11.9 fluticasone propionate 50 mcg/actuation spray,suspension 1 spray intranasal QAM Qty: 48 1RF cholecalciferol (vitamin D3) 25 mcg (1,000 unit) capsule 50 mcg PO QAM Qty: 30 0RF cholecalciferol (vitamin D3) 50 mcg (2,000 unit) tablet 2,000 unit PO HS Qty: 90 0RF sertraline [Zoloft] 100 mg tablet 100 mg PO HS Qty: 90 1RF spironolactone 25 mg tablet 25 mg PO DAILY Qty: 90 1RF isosorbide mononitrate 30 mg tablet extended release 24 hr 30 mg PO DAILY lorazepam 0.5 mg tablet 0.5 mg PO TID PRN losartan 25 mg tablet 25 mg PO DAILY melatonin 5 mg capsule 5 mg PO PRN (Reason: insomnia) docusate sodium 100 mg tablet 100 mg PO BID lorazepam 0.5 mg tablet 0.5 mg PO BID PRN omeprazole 20 mg tablet,delayed release (DR/EC) 20 mg PO DAILY amiodarone 200 mg tablet 200 mg PO [facility] clopidogrel 75 mg tablet 75 mg PO HS acetaminophen [Tylenol Extra Strength] 500 mg tablet 1,000 mg PO Q8H MDD 3g PRN (Reason: Fever Or Pain) albuterol sulfate 90 mcg/actuation HFA aerosol inhaler 1 puff inhalation Q6H PRN (Reason: Shortness Of Breath Or Wheezing) Rx Instructions: INHALE 1 PUFF BY MOUTH EVERY 6 HOURS NEEDED FOR SHORTNESS OF BREATH pantoprazole 40 mg tablet,delayed release (DR/EC) 40 mg PO HS metoprolol succinate 25 mg tablet extended release 24 hr 25 mg PO [facility] mecobalamin (vitamin B12) 1,000 mcg tablet,disintegrating 1,000 mcg sublingual HS Rx Instructions: place tablet under tongue and allow to dissolve for at least30 secs before swallowing folic acid 1 mg Tablet 1 mg PO DAILY Qty: 30 0RF fexofenadine 180 mg tablet 180 mg PO HS Qty: 0 0RF Eliquis 2.5 mg Tablet 2.5 mg PO BID Qty: 60 0RF Hold Instructions: Resume on 06/02/24. until no longer awaiting procedures polyethylene glycol 3350 [Miralax] 17 gram/dose powder 17 g PO DAILY PRN (Reason: constipation) Qty: 119 0RF Referrals Referrals: Roddy Woodruff III, MD [Primary Care Provider] -
[2024-07-29 09:52] LABS: Hematocrit (blood only) 41.6 % (37.0-47.0); Mean Corpuscular Hemoglobin 31.6 pg (25.0-34.0); Mean Corpuscular Hgb Conc 31.3 g/dL (32.0-36.0); Mean Platelet Volume 9.6 fL (9.4-12.4); Platelet Count 229 K/uL (130-400); RDW Coefficient of Variation 16.2 % (11.5-14.5); RDW Standard Deviation 60.8 fL (36.4-46.3); Red Blood Count 4.12 M/uL (4.20-5.40); White Blood Count 23.23 K/ul (4.8-10.8)
[2024-07-29 09:53] LABS: Albumin Globulin Ratio 1.4 (0.9-2); Albumin Level 3.8 gm/dl (3.4-5.0); BUN Creatinine Ratio 8.6 (10-20); Bilirubin,Total 0.6 mg/dl (0.2-1.0); Calcium 10.4 mg/dl (8.6-10.3); Creatinine Clr Calc Pharmacy 16.9 ml/min; Globulin 2.7 gm/dl (2.5-4.0); Magnesium 1.9 mg/dl (1.7-2.4); Potassium 4.2 mmol/L (3.5-5.1); Total Protein 6.5 gm/dl (6.0-8.3)
[2024-07-29 09:59] LABS: Troponin I High Sensitivity 49.2 pg/ml (0-14)
[2024-07-29 10:06] LABS: INR 1.1 (0.9-1.1); Prothrombin Time 11.9 Seconds (9.0-12.0)
[2024-07-29 10:19] LABS: Adenovirus PCR Not Detected (NotDetected); Bordetella parapertussis PCR Not Detected (NotDetected); Bordetella pertussis PCR Not Detected (NotDetected); Chlamydia pneumoniae PCR Not Detected (NotDetected); Coronavirus 229E PCR Not Detected (NotDetected); Coronavirus CoV-2 (COVID19)PCR Not Detected (NotDetected); Coronavirus HKU1 PCR Not Detected (NotDetected); Coronavirus NL63 PCR Not Detected (NotDetected); Coronavirus OC43PCR Not Detected (NotDetected); Human Metapneumovirus PCR Not Detected (NotDetected); Influenza A PCR Not Detected (NotDetected); Influenza B PCR Not Detected (NotDetected); Mycoplasma pneumoniae PCR Not Detected (NotDetected); Parainfluenza Virus 1 PCR Not Detected (NotDetected); Parainfluenza Virus 2 PCR Not Detected (NotDetected); Parainfluenza Virus 3 PCR Not Detected (NotDetected); Parainfluenza Virus 4 PCR Not Detected (NotDetected); Respiratory Syncytial VirusPCR Not Detected (NotDetected); Rhinovirus/Enterovirus PCR Not Detected (NotDetected)
[2024-07-29 10:51] LABS: Basophils % (auto) 0.4 %; Eosinophils # (auto) 0.25 K/uL (0.00-0.50); Eosinophils % (auto) 1.1 %; Immature Granulocytes % (auto) 0.4 %; Lymphocytes # (auto) 11.62 K/uL (1.20-3.40); Monocytes # (auto) 0.34 K/uL (0.11-0.59); Monocytes % (auto) 1.5 %; Neutrophils # (auto) 10.82 K/uL (1.40-6.50); Neutrophils % (auto) 46.6 %; Ovalocytes 1+; Polychromasia 1+; Smudge Cells Present; Tear Drop Cells 1+
--- NOTE | 2024-07-29 11:49 | History & Physical Report ---
<Statement entered by Mary Jane Moreno MD - 07/29/24 15:50> 78-year-old woman who is medically complex admitted with acute on chronic hypoxic respiratory failure from acute pulmonary edema. I am unable to determine at this time whether she has sepsis, she does have significant leukocytosis in the setting of CLL and having received 125 mg of Solu-Medrol by medics, she had dysuria earlier this week which resolved on oral Cipro, she has a very mild elevation of lactate and HAGMA, possible sources include pneumonia, urinary tract infection, dialysis line infection. Acute ( flash) pulmonary edema, underlying chronic systolic and diastolic heart failure from ischemic cardiomyopathy, severe aortic stenosis, severe underlying coronary artery disease, ALLAN on CKD 4 currently dialysis dependent - baseline requires 4 L of oxygen, on medics arrival today was 78% on 4 L - improved on CPAP started by medics, continues to have pulmonary edema on lung exam with crackles throughout and on chest x-ray continue noninvasive positive pressure ventilation at this time - she does not appear total body volume overloaded on exam there is no peripheral edema and her weight is similar to previous discharge - does make some urine at baseline, consult pairer inspector consider dose of IV Lasix versus hemodialysis/ultrafiltration - blood pressure is currently normal, avoid hypovolemia and too much vasodilation because of severe possible sepsis. fluid bolus deferred because of acute pulmonary edema and dialysis dependence. - she is at risk of resistant gram-negative pneumonia because she has been on oral Cipro this week, because of her dialysis dependence, [facility], and is frequently hospitalized there for we will continue cefepime. I wo uld prefer pip-tazo because of the risk of cefepime induced neurotoxicity in a dialysis patient,however she has a penicillin allergy. she has tolerated cephalosporin - we will also cover MRSA/gram-positive's with vancomycin because of the chance of a line infection - follow-up blood cultures, we are unlikely to have a productive urine culture because she was already on antibiotics and this has been difficult to obtain her overall prognosis is poor because of her multiple severe underlying medical problems. I reviewed her chart it seems that she developed ALLNA on CKD 4 early this fall and was started on hemodialysis, transferred to tertiary care to consider TAVR however she was deemed not a candidate. She also had coronary angiogram this fall and was transferred to tertiary care to consider CABG who was again not a candidate, she on underwent PCI of unknown vessel. she has chronic systolic and valvular heart failure with a low EF around 25%, has a history of ventricular tachycardia, and has a biventricular pacemaker with AICD. She is also known to have severe pulmonary hypertension as well as atrial fibrillation. She has CLL. palliative care was consulted when she was hospitalized this fall at [facility] and she is DNR/DNI which we confirmed with the patient and her daughter. Date of Service July 29, 2024 Assessment & Plan (1) Acute respiratory failure: Plan: In setting of HFrEF, severe , pulmonary edema, ? PNA; initially satting at 70% on 4L O2, EMS started patient on CPAP; stable during visit - Admit PCU - 4 L O2 via NC at baseline - Initially was 70% on 4 L at Center care-> EMS put patient on CPAP and O2 sats increased - CXR w/ pulmonary edema - WBC 22.23, Procal 0.28 - BiPAP continuous (2) Pulmonary edema: Plan: H/o HFrEF, HFpEF, severe ; H/o similar episode May 2024 - Euvolemic on exam - On 4L O2 via NC baseline; requiring Oxymask currently - BiPAP now, continuous possible transition to CPAP if necessary - ? Lasix vs dialysis - pending nephrology input - Follow CXR periodically (3) Sepsis: Plan: Likely source urine vs PNA vs line associated - SIRS: RR 28; WBC 23.23 - BP 149/94 on arrival- 142/85 currently - VBGs pH 7.28, pCO2 54 - CBC WBC 23.23 (neutrophil 10.82, lymphs 11.62) - CMP anion gap 12, BUN 24, creatinine 2.78, ratio 8.6 - Lactate 2.3, 2.3 on repeat as well; Mg 1.9, Ca 10.4 - PT/INR WNL - BNP 1712; Procal 0.28 - Troponin 49.2, repeat 96.8 - trend troponins - UA pending (if able) - Pending blood cultures - EKG sinus rhythm, first-degree AV block, rate around 60 - CXR cardiomegaly pulmonary edema, right greater than left layering pleural effusion with bibasilar consolidation - No fluids provide secondary to pulmonary edema -> does not meet criteria for 30 cc/kg (not hypotensive, lactate less than 4) - Patient with very mild urine output secondary to ESRD - Cefepime + Vancomycin - tailor abx to culture (4) End stage chronic kidney disease: Plan: Patient in and stage renal disease, very minimal urine output; IJ HD catheter in place - Dialysis on Wednesday, Wednesday, Wednesday- most recent 07/28 - initially started May 17, 2024 - Cr ranging 2-3 - Cr on admission 2.78 - Phosphorus pending - BMP a.m. - Renally dose medications, avoid nephrotoxins - Avoid overdiuresis - Nephrology consulted Appreciate nephrology input + recs (5) HFrEF (heart failure with reduced ejection fraction): Plan: H/o HFrEF; presenting with SOB; ICD in place (by Dr. Sanders, May 12, 2024) - Current weight 87.5 kg; Daily weights (unsure if patient can stand on her own) - I+Os - patient makes little urine secondary #4 - Echo 05/02/2024- LV dilated, LV systolic function reduced, EF 30 to 35%, distal inferior wall akinetic, diastolic dysfunction grade 2, severe valvular , severe MR, RVSP 30 to 40 mmHg - BNP 1712 - patient appears to be significantly elevated in the past at baseline - CXR cardiomegaly, pulmonary edema, right greater than left layering pleural effusion - Troponin 49.2 -> 96.8 on repeat-- no chest pain, EKG w/o ischemic changes - demand related in setting of renal failure - Clopidogrel 75mg, metoprolol succinate 25 mg - Spironolactone 25 mg daily (6) Leukemia: Plan: CLL - Leukocytosis, ? 2/2 CLL + stress + UT+ ? sepsis - History of DURAN; H&H stable on admission - Daughter states patient can absolutely not receive p.o. iron secondary to severe constipation - Follows with hematology as an outpatient - CBC a.m. - Iron studies a.m. (7) PAF (paroxysmal atrial fibrillation): Plan: Previous history of PAF; no symptoms currently - EKG on admission showed normal sinus with first-degree block - telemetry showing normal sinus - Anticoagulated with Eliquis, renally dosed - Metoprolol succinate, Imdur, amiodarone - Continue to monitor (8) DM2 (diabetes mellitus, type 2): Plan: Per history - Most recent A1C (03/30/2024) 6.3% - No outpatient medications, therefore no checks - Pt normally checks sugars every other day Plan GERD- omeprazole HTN- Metoprolol, Imdur, Losartan Mood- Sertraline Dispo: Admit Diet: Low Na, fluid restrict (2L) VTE prophylaxis: Eliquis 2.5 mg p.o. twice daily (renally dosed) Code: DNR/DNI Admission and Anticipated Discharge Date Admission Date: 07/29/2024 History of Present Illness Chief Complaint: Shortness of breath Primary Care Provider: Roddy Woodruff III, MD 78-year-old female presenting via EMS from [facility] for shortness of breath, requiring supplemental oxygen. Currently being treated for UTI. ED course: CBC- WBC 22.23, lymphocyte predominant (11.62) neutrophils 10.82, RBC 4.12, MCV 101, MCHC 31.3, RDW 60.8; PT/INR WNL; VBG pH 7.26, pCO2 54; CMP AG 12, BUN 24, creatinine 2.78, glucose 230, calcium 10.4, magnesium 1.9, initial lactate 2.3 pending repeat, alk phos 130; troponin 49.2; BNP 1712; procalcitonin 0.28; CXR cardiomegaly with pulmonary edema, right greater than left layering pleural effusion with bibasilar consolidation (similar to prior study); EKG sinus rhythm with first-degree AV block, rate around 60. Patient is an 78-year-old female from [facility] with PMHx end-stage CKD, HFrEF, GERD, CAD s/p stents, dyslipidemia, and with presence of ICD in place presenting for shortness of breath. Associated onset shortness of breath the morning of arrival. Daughter is in the room and helped provide history. Daughter states that the patient called her at 0500 this a.m. and was not complaining of shortness of breath or any symptoms. Around 0900 the same day, the patient's daughter was called for the change in patient's breathing. Patient states that she is not currently very short of breath, and that she is normally on 4 L O2 via NC at baseline. States that the shortness of breath came on and concerned her, but she denies episodes of syncope, dizziness, chest pain, palpitations, or cough. Patient is being treated for UTI with ciprofloxacin, based off of clinical picture as UA was not able to be obtained after 2 unsuccessful catheter placement attempts. States that her dysuria has been improving. Multiple bowel movements today. Denies open areas to skin or recent wounds. No recent fever/chills. Currently denying chest pain, palpitations, headache, vision changes, abdominal pain, N/V/D/C, numbness/tingling, dysuria (minimal output however), or additional concerns. Patient states most recent dialysis was 07/28; she receives dialysis every Wednesday/Wednesday/Wednesday. States that she has had similar episodes of this happen before. Reports taking all a.m. medications to the best of her knowledge. Please see Dr. Moreno's attestation for adjustments/additions to treatment plan. Allergies Allergy/AdvReac Type Severity Reaction Status Date / Time bee venom protein (honey bee) Allergy Severe Anaphylaxis Verified 07/29/24 12:39 Penicillins Allergy Severe Rash, Verified 07/29/24 12:39 anaphylaxis Sulfa (Sulfonamide Allergy Severe Rash, Verified 07/29/24 12:39 Antibiotics) anaphylaxis amlodipine Allergy Unknown Palpitation/Headache, Unverified 07/29/24 12:39 on file w/ [facility] pseudoephedrine Allergy Unknown Unknown, Unverified 07/29/24 12:39 on file w/ [facility] Home Medications Medication Instructions Recorded Confirmed Type atorvastatin 80 mg tablet (Lipitor) 80 mg PO HS #90 tabs 08/25/23 07/29/24 Rx lancets 31 gauge (Comfort Touch #100 ea 08/25/23 06/29/24 Rx Ultra Thin Lancets) nitroglycerin 0.4 mg sublingual 0.4 mg sublingual UD PRN Chest 08/25/23 07/29/24 Rx tablet (Nitrostat) Pain #25 tabs blood sugar diagnostic (OneTouch #100 ea 09/01/23 06/29/24 Rx Verio test strips) apixaban 2.5 mg tablet (Eliquis) 2.5 mg PO BID #60 tabs 05/24/24 07/29/24 Rx acetaminophen 500 mg tablet 1,000 mg PO Q8H PRN Fever Or Pain 05/25/24 07/29/24 History (Tylenol Extra Strength) albuterol sulfate 90 mcg/actuation 2 puff inhalation DAILY SOB 05/25/24 07/29/24 History aerosol inhaler amiodarone 200 mg tablet 200 mg PO AMHS 05/25/24 07/29/24 History clopidogrel 75 mg tablet 75 mg PO HS 05/25/24 07/29/24 History metoprolol succinate 25 mg 25 mg PO AMHS 05/25/24 07/29/24 History tablet,extended release 24 hr folic acid 1 mg tablet 1 mg PO DAILY #30 tabs 05/29/24 07/29/24 Rx cholecalciferol (vitamin D3) 50 2,000 unit PO HS #90 tabs 06/06/24 07/29/24 Rx mcg (2,000 unit) tablet sertraline 100 mg tablet (Zoloft) 100 mg PO HS #90 tabs 06/23/24 07/29/24 Rx isosorbide mononitrate 30 mg 30 mg PO DAILY 06/29/24 07/29/24 History tablet,extended release 24 hr lorazepam 0.5 mg tablet 0.5 mg PO BID 06/29/24 07/29/24 History losartan 25 mg tablet 25 mg PO DAILY 06/29/24 07/29/24 History melatonin 5 mg capsule 5 mg PO HS insomnia 06/29/24 07/29/24 History spironolactone 25 mg tablet 25 mg PO DAILY #90 tabs 07/03/24 07/29/24 Rx docusate sodium 100 mg tablet 200 mg PO HS 07/27/24 07/29/24 History lorazepam 0.5 mg tablet 0.5 mg PO Q12H PRN Anxiety 07/27/24 07/29/24 History omeprazole 20 mg tablet,delayed 20 mg PO DAILY 07/27/24 07/29/24 History release albuterol sulfate 2.5 mg/3 mL 2.5 mg inhalation Q4H PRN SOB 07/29/24 07/29/24 History (0.083 %) solution for nebulization bisacodyl 10 mg rectal suppository 10 mg NC DAILY PRN Constipation 07/29/24 07/29/24 History (Dulcolax (bisacodyl)) cyanocobalamin (vitamin B-12) 1,000 mcg PO DAILY 07/29/24 07/29/24 History 1,000 mcg tablet (Vitamin B-12) dextromethorphan-guaifenesin 10 10 ml PO UD cough 07/29/24 07/29/24 History mg-100 mg/5 mL oral syrup (Tussin DM) fluticasone propionate 50 2 spray intranasal QAM 07/29/24 07/29/24 History mcg/actuation nasal spray,suspension magnesium hydroxide 400 mg/5 mL 0 mg PO DAILY PRN Constipation 07/29/24 07/29/24 History oral suspension (Milk of Magnesia) sodium phosphates 19 gram-7 118 ml NC DAILY PRN Constipation 07/29/24 07/29/24 History gram/118 mL enema (Fleet Enema) Past Med/Surg History Problem List (Updated 07/29/24 @ 12:44 by Roman Marquez PA-C) Acute respiratory failure ESRD on dialysis (Acute) Leukocytosis (Acute) Elevated brain natriuretic peptide (BNP) level (Acute) Non-ST elevation CO (NSTEMI) (Acute) Acute dyspnea (Acute) Pulmonary edema (Acute) Sepsis (Acute) Acute hypoxemic respiratory failure (Acute) Sepsis End stage chronic kidney disease Elevated troponin I level (Acute) Hypoxia (Acute) Hyponatremia Anemia ICD (implantable cardioverter-defibrillator) in place Paroxysmal ventricular tachycardia S/P coronary artery stent placement Mitral regurgitation Aortic stenosis HFrEF (heart failure with reduced ejection fraction) Acute kidney injury Chronic kidney disease, stage IV (severe) (Acute) Weakness (Acute) PND (post-nasal drip) DNS (deviated nasal septum) Otalgia of both ears Acute bronchitis Toxic encephalopathy Radicular low back pain Spinal stenosis Pulmonary edema (Acute) Anxiety Chronic cough Physician orders for life-sustaining treatment (POLST) form indicates patient wish for full code resuscitation status CKD (chronic kidney disease) stage 3, GFR 30-59 ml/min Compression fracture GERD (gastroesophageal reflux disease) (Chronic) Dyslipidemia (Chronic) CAD (coronary artery disease) Chronic combined systolic and diastolic CHF (congestive heart failure) Left ventricular dysfunction Medical History 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 retirement 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 Depression Hypertension Seasonal allergies Cerebral artery occlusion History of CHF (congestive heart failure) Osteoarthritis of right knee GEL SHOT, MOST RECENT INJECTION FEBRUARY 2021 DM2 (diabetes mellitus, type 2) History of colon polyps Nausea and vomiting after administration of anesthetic agent Osteoarthritis Leukemia just monitoring On anticoagulant therapy Hearing deficit Stroke x3 ?--2010/2011--no neurologist, left arm weakness, uses cane to ambulate Hyperlipidemia Atrial fibrillation DX 2018 ? DR KENNEDY - NO HX CARDIOVERSION Myocardial Infarction 2010 & 2019...STENT X 1 Asthma LAST USE LAST WEEK Surgical History Hx of cataract surgery B/L H/O heart artery stent HX CO , STENT X1 2019 History of phacoemulsification of cataract of both eyes with intraocular lens implantation History of dilatation and curettage x3 History of total left knee replacement (TKR) History of right breast biopsy x3--benign History of laparoscopy History of bilateral breast reduction surgery History of colonoscopy Family History Mother Family history of diabetes mellitus Myocardial infarction Family/Other Family history of diabetes mellitus cousin Aunt Breast cancer Father Myocardial infarction Stroke Other No family history of adverse response to anesthesia Denies family history of Ovarian cancer Prostate cancer Colorectal cancer Uterine cancer Social History Smoking Status: Former smoker Tobacco Type: Cigarettes Age Started Using Tobacco: 53; Age Quit Using Tobacco: 62; Cigarettes Per Day: HX OCCASSIONAL CIGARETTE 15 YRS AGO; Second Hand Exposure: No; Do You Dip or Chew Tobacco: No; Hx Alcohol Use: No Hx Substance Use: No Preferred Language: Albanian Communication Ability: Effective Visual Impairment: No Limitations Hearing Ability: Use of Hearing Aid Tobacco Shaker Required: No Beliefs That Will Affect Care: Yazdanism Yazdanism Beliefs: CONFUCIANISM marital status: / Current Living Situation: Family Current Living Situation Comment: lives with daughter current occupational status: retired current occupation: worked for [employer] Feels Safe at Home: Yes Childhood Exposure to Second-Hand Smoke: Yes Diet: low salt Diet Comment: low sodium Dental Care, Regularly: Yes Physical Activity Frequency: Does not Exercise Seatbelt Use: always Sunscreen Use: No Assistive Devices: Walker Review of Systems Review of Systems: All systems reviewed & are unremarkable except as noted in Subjective Physical Exam Physical Exam: General: No acute distress Skin: Warm and dry, without rashes or lesions; left medial aspect of heel with very small red area, no break in skin, no streaking Head: Normocephalic, atraumatic Eyes: PERRL, conjunctivae clear, sclera non-icteric ENT: External ear and ear canal without swelling; nose atraumatic; good dentition, tongue normal appearance, pharynx normal without tonsillar swelling or exudate Neck: Supple, no LAD; no JVD Cardio: RRR, no M/G/R, S1 and S2 normal Resp: On 4 L O2 via Oxymasl; no respiratory distress, Lungs with diminished breath sounds bilaterally, no wheezes, rales, or rhonchi Abdomen: Soft, symmetric, nontender; no distention; No masses or hepatosplenomegaly MSK: No deformities; pulses palpable and equal; no edema. Neuro: Awake, alert; Sensation intact bilaterally; CN intact Psych: Appropriate mood and affect Daughter present in room at time of visit. Results & Data Results & Data Vital Signs (Past 12 Hours) Vital Signs Temp Pulse Pulse Resp BP BP Pulse Ox 07/29/24 10:59 36.4 C 60 20 154/76 H 98 07/29/24 10:59 60 21 98 07/29/24 10:59 98 07/29/24 09:42 60 18 131/72 96 07/29/24 09:33 68 07/29/24 08:55 36.4 C L 71 28 H 149/94 H 98 07/29/24 08:55 O2 Del Method O2 Flow Rate 07/29/24 10:59 Oxymask 6 07/29/24 10:59 Oxymask 6 07/29/24 10:59 Oxymask 6 07/29/24 09:42 Oxymask 7 07/29/24 09:33 07/29/24 08:55 Oxymask 10 07/29/24 08:55 Oxymask 10 Laboratory Results 07/29/24 Unknown Aerobic Blood Culture - Pending Blood Anaerobic Blood Culture - Pending 07/29/24 10:33 Aerobic Blood Culture - Pending Blood Anaerobic Blood Culture - Pending 07/29/24 07/29/24 07/29/24 11:06 10:33 09:20 WBC RBC Hgb Hct MCV MCH MCHC RDW Std Deviation RDW Coeff of Nino Plt Count MPV Immature Gran % (Auto) Neut % (Auto) Lymph % (Auto) [place]haw % (Auto) Eos % (Auto) Baso % (Auto) Neut # (Auto) Lymph # (Auto) [place] # (Auto) Eos # (Auto) Baso # (Auto) Immature Gran # (Auto) Smudge Cells Polychromasia Tear Drop Cells Ovalocytes PT INR VBG pH VBG pCO2 VBG pO2 VBG HCO3 VBG O2 Saturation VBG Base Excess Sodium Potassium Chloride Carbon Dioxide Anion Gap BUN Creatinine Est Cr Clr Drug Dosing eGFR BUN/Creatinine Ratio Glucose Lactate 2.3 H* Calcium Magnesium Total Bilirubin AST ALT Alkaline Phosphatase Troponin I High Sens B-Natriuretic Peptide Total Protein Albumin Globulin Albumin/Globulin Ratio Procalcitonin 0.28 Adenovirus (PCR) Not Detected B. pertussis DNA (PCR) Not Detected B.parapertussis DNA PCR Not Detected C. pneumoniae DNA (PCR) Not Detected Coronavirus OC43 (PCR) Not Detected Coronavirus HKU1 (PCR) Not Detected Coronavirus 229E (PCR) Not Detected SARS-CoV-2 (PCR) Not Detected Coronavirus NL63 (PCR) Not Detected Human Metapneumovir PCR Not Detected Influenza Type A (PCR) Not Detected Influenza Type B (PCR) Not Detected M. pneumoniae (PCR) Not Detected Parainfluenza 1 (PCR) Not Detected Parainfluenza 2 (PCR) Not Detected Parainfluenza 3 (PCR) Not Detected Parainfluenza 4 (PCR) Not Detected RSV (PCR) Not Detected Entero/Rhino (PCR) Not Detected 07/29/24 09:10 WBC 23.23 H RBC 4.12 L Hgb 13.0 Hct 41.6 MCV 101.0 H MCH 31.6 MCHC 31.3 L RDW Std Deviation 60.8 H RDW Coeff of Nino 16.2 H Plt Count 229 MPV 9.6 Immature Gran % (Auto) 0.4 Neut % (Auto) 46.6 Lymph % (Auto) 50.0 Kershaw % (Auto) 1.5 Eos % (Auto) 1.1 Baso % (Auto) 0.4 Neut # (Auto) 10.82 H Lymph # (Auto) 11.62 H Kershaw # (Auto) 0.34 Eos # (Auto) 0.25 Baso # (Auto) 0.10 Immature Gran # (Auto) 0.10 Smudge Cells Present Polychromasia 1+ Tear Drop Cells 1+ Ovalocytes 1+ PT 11.9 INR 1.1 VBG pH 7.26 L VBG pCO2 54 H VBG pO2 41 VBG HCO3 24 VBG O2 Saturation 61.7 VBG Base Excess -3.5 Sodium 138 Potassium 4.2 Chloride 103 Carbon Dioxide 23 Anion Gap 12 H BUN 24 H Creatinine 2.78 H Est Cr Clr Drug Dosing 16.9 eGFR 16.70 BUN/Creatinine Ratio 8.6 L Glucose 230 H Lactate 2.3 H* Calcium 10.4 H Magnesium 1.9 Total Bilirubin 0.6 AST 36 ALT 29 Alkaline Phosphatase 130 H Troponin I High Sens 49.2 H B-Natriuretic Peptide 1712 H Total Protein 6.5 Albumin 3.8 Globulin 2.7 Albumin/Globulin Ratio 1.4 Procalcitonin Adenovirus (PCR) B. pertussis DNA (PCR) B.parapertussis DNA PCR C. pneumoniae DNA (PCR) Coronavirus OC43 (PCR) Coronavirus HKU1 (PCR) Coronavirus 229E (PCR) SARS-CoV-2 (PCR) Coronavirus NL63 (PCR) Human Metapneumovir PCR Influenza Type A (PCR) Influenza Type B (PCR) M. pneumoniae (PCR) Parainfluenza 1 (PCR) Parainfluenza 2 (PCR) Parainfluenza 3 (PCR) Parainfluenza 4 (PCR) RSV (PCR) Entero/Rhino (PCR) Diagnostic Findings Chest X-Ray 07/29/24 08:55 XR chest 1V portable HISTORY: 78 years-old Female Dyspnea acute shortness of breath COMPARISON: 05/27/2024 TECHNIQUE: AP view of the chest FINDINGS: Cardiac silhouette is enlarged. Dual lead left subclavian pacer/AICD. Dual-lumen right IJ hemodialysis catheter is unchanged. No pneumothorax. Pulmonary edema with layering pleural effusions and right greater than left bibasilar consolidation redemonstrated, not significant change from the prior study. Bones appear grossly intact. IMPRESSION: 1. Cardiomegaly with pulmonary edema. 2. Right greater than left layering pleural effusions with bibasilar consolidation is similar to the prior study. ACT 112: Negative or not required by law. The above report was generated using voice recognition software. It may contain grammatical, syntax or spelling errors. Electronically signed by: Justus Baires M.D. 07/29/2024 9:29 AM Code Status & VTE Plan Code Status DNR/DNI PG Care Time/CCT Total # of Minutes Spent Total Time Spent with Patient: Total time spent is greater than 50% in coordination of care (as documented) at patient's floor/unit and/or counseling patient: Coding Level of Care Code 16541 INT INP/OBS CARE 3/75MIN Diagnoses Acute respiratory failure J96.00 Pulmonary edema J81.1 Sepsis A41.9 End stage chronic kidney disease N18.6 HFrEF (heart failure with reduced ejection fraction) I50.20 Leukemia C95.90 PAF (paroxysmal atrial fibrillation) I48.0 DM2 (diabetes mellitus, type 2) E11.9 Time Spent (min) 90
[2024-07-29] MEDS: CEFEPIME 2000MG 2,000 MG/20 ML SYR IV STA (12:32)
[2024-07-29] MEDS ORDERED: VANCOMYCIN CONSULT ACTIVE PRN (13:24)
[2024-07-29] MEDS ORDERED: LORazepam 0.5 MG TAB PO PRN (14:03)
[2024-07-29] MEDS ORDERED: bisacodyL 10 MG SUPP PR PRN (14:03)
[2024-07-29] MEDS ORDERED: MAGNESIUM HYDROXIDE SUSP 30 ML UDC PO PRN (14:03)
[2024-07-29] MEDS ORDERED: NITROGLYCERIN SL 0.4 MG/TAB TAB SL PRN (14:03)
[2024-07-29] MEDS ORDERED: ALBUTEROL 0.083% NEBU SOLN 3 ML VIAL INH PRN (14:03)
[2024-07-29] MEDS ORDERED: POLYETHYLENE (MIRALAX) 17 GM PACK PO PRN (15:34)
[2024-07-29] MEDS: VANCOMYCIN 2,000 MG in D5W 500mL (Use w/ NSS Shortage) IV ONE (15:36)
[2024-07-29] MEDS: VANCOMYCIN HCL 1,250 MG in SODIUM CHLORIDE 0.9% 250 ML IV ONE (15:36)
--- NOTE | 2024-07-29 16:21 | Pharmacy Report ---
Pharmacy PK ABX Note - Date of Service July 29, 2024 - Assessment and Plan Assessment 78 year old F receiving Vancomycin and Cefepime for empiric treatment of sepsis secondary to skin infection vs pneumonia. * Day #1 of antimicrobial therapy. * Afebrile. Leukocytosis of 23k. SCr at 2.78 but patient with ESRD on HD MWF. Procal was 0.28 and lactate elevated at 2.3. * Respiratory biofire negative. MRSA nasal swab pending. Blood cultures pending. Plan Vancomycin * Loading dose: 2000 mg IV x 1 * Will dose per level given ESRD on HD. * Random level ordered for tomorrow morning. Will need to assess along with residual urine output prior to given next vancomycin dose. Cefepime * 2000 mg IV x 1 followed by 1000 mg IV every 12 hours Pharmacy will continue to follow and will adjust dose/frequency as necessary. Thank you. Pharmacy has transitioned to AUC monitoring for vancomycin. AUC/DONOVAN is the preferred PK/PD target and is associated with decreased risk of nephrotoxicity compared to traditional trough targets.
[2024-07-29] MEDS: SENNA 8.6 MG TAB PO SCH (18:17)
--- NOTE | 2024-07-29 18:34 | Communication Note ---
Date of Service: July 29, 2024 I reexamined her late afternoon. Appears to be breathing more comfortably, continues to have posterior crackles on lung exam however apices are more clear. satting in high 90s on 3L which is better than her baseline 4L O2 -made Bipap PRN -if worsening pulmonary edema overnight recommend restarting Bipap and giving large dose of IV lasix probably 80 mg.
[2024-07-29] MEDS: ATORVASTATIN 40 MG TAB PO SCH (21:00)
[2024-07-29] MEDS: AMIODARONE 200 MG TAB PO SCH (21:00)
[2024-07-29] MEDS: CLOPIDOGREL BISULFATE 75 MG TAB PO SCH (21:00)
[2024-07-29] MEDS: CHOLECALCIFEROL 25 MCG (1000 UNITS) TAB PO SCH (21:00)
[2024-07-29] MEDS: SERTRALINE HCL 100 MG TABLET PO SCH (21:01)
[2024-07-29] MEDS: APIXABAN 2.5 MG TAB PO SCH (21:01)
[2024-07-29] MEDS: METOPROLOL SUCC 25MG EXT REL TAB PO SCH (21:01)
[2024-07-29] MEDS: MELATONIN 3 MG TAB PO SCH (21:03)
[2024-07-29] MEDS: DOCUSATE SODIUM 100 MG CAP PO SCH (21:04)
[2024-07-29] MEDS: LORazepam 0.5 MG TAB PO SCH (21:04)
[2024-07-30] MEDS ORDERED: CEFEPIME 1000MG 1,000 MG/10 ML SYR IV SCH
[2024-07-30 04:39] LABS: Hematocrit (blood only) 33.3 % (37.0-47.0); Hemoglobin 10.7 g/dl (12.0-16.0); Mean Corpuscular Hemoglobin 31.6 pg (25.0-34.0); Mean Corpuscular Hgb Conc 32.1 g/dL (32.0-36.0); Mean Corpuscular Volume 98.2 fL (80.0-100.0); Platelet Count 179 K/uL (130-400); RDW Coefficient of Variation 15.9 % (11.5-14.5); RDW Standard Deviation 57.2 fL (36.4-46.3); Red Blood Count 3.39 M/uL (4.20-5.40); White Blood Count 19.94 K/ul (4.8-10.8)
[2024-07-30 04:54] LABS: BUN Creatinine Ratio 11.7 (10-20); Calcium 9.9 mg/dl (8.6-10.3); Creatinine Clr Calc Pharmacy 15.8 ml/min; Potassium 4.7 mmol/L (3.5-5.1)
--- NOTE | 2024-07-30 08:48 | Nephrology Consultation ---
Date of Consultation July 30, 2024 Assessment & Plan (1) ESRD on dialysis: * ESKD due to CRS * Patient is a resident at [facility]. She dialyzes MWF. Dialysis prescription is as follows: 4 hours, Revaclear 300, Target weight 87.5 kg, QB 300 cc/minute, 2K, 2 calcium, bicarbonate 32, heparin 2000 units loading, 500 units/hour * At this time patient is oxygenating well flat in bed on room air. Will plan for hemodialysis Wednesday. Orders have been placed in EMR and VM left with HD staff appraiser to have patient dialyzed first shift tomorrow * Will provide IV furosemide to attempt diuresis today (2) Pulmonary edema: * Will order CXR following HD tomorrow. If patient's right effusion fails to improve with ultrafiltration consider consultation with pulmonology for thoracentesis (3) Aortic stenosis: * Not a candidate for TAVR due to underlying ASCVD (4) HFrEF (heart failure with reduced ejection fraction): * Ischemic CMP s/p AICD due to history of VT/torsades History of Present Illness Reason for Consultation: ESKD-D Attending Physician: Mary Jane Moreno MD History of Present Illness Ms. Diaz is an 78-year-old white female who is seen at the request of the [facility] hospitalist service to provide inpatient hemodialysis. Information for the HPI is obtained from direct patient interview and review of the EMR. HPI summarized as follows: Ms. Diaz Has ESKD due to CRS. She required initiation of HD 05/17/2024. Her dialysis access remains a right IJ TCC. Ms. Diaz is currently a resident at [facility]. She receives HD every MWF. Her HD prescription is as follows: 4 hours, Revaclear 300, Target weight 87.5 kg, QB 300 cc/minute, 2K, 2 calcium, bicarbonate 32, heparin 2000 units loading, 500 units/hour. Ms. Diaz's medical history is significant for ICM with LVEF 30- 35%, severe , moderate MR, paroxysmal A-fib. During her 06/06 hospitalization Ms. Diaz suffered an episode of VT/torsades. She now has an AICD in place. In 06/06 Ms. Diaz was transferred to [facility] for consideration of TAVR. Cardiac catheterization was performed the patient was found to have coronary artery disease that was not amenable to revascularization. TAVR was not pursued due to concerns over inducing myocardial ischemia during the procedure. Patient remains on HD for volume management. [facility] she has become progressively weaker. She now requires a Chris lift to get from bed to her dialysis chair. Permanent dialysis access has not yet been pursued as her prognosis remains guarded. 07/29/24 Ms. Diaz completed her dialysis treatment without complication. She did obtain her dry weight of 87.5 kg. That evening she became progressively dyspneic. Patient was transferred to the [facility]. Chest x-ray revealed cardiomegaly with pulmonary edema and R > L layering pleural effusions similar to prior study. Admission was advised for O2 therapy and ongoing dialysis if needed. This morning Ms. Diaz denied dyspnea. She was resting comfortably flat in bed on room air. O2 sat was 98%. Allergies Allergy/AdvReac Type Severity Reaction Status Date / Time bee venom protein (honey bee) Allergy Severe Anaphylaxis Verified 07/29/24 12:39 Penicillins Allergy Severe Rash, Verified 07/29/24 12:39 anaphylaxis Sulfa (Sulfonamide Allergy Severe Rash, Verified 07/29/24 12:39 Antibiotics) anaphylaxis amlodipine Allergy Unknown Palpitation/Headache, Unverified 07/29/24 12:39 on file w/ [facility] pseudoephedrine Allergy Unknown Unknown, Unverified 07/29/24 12:39 on file w/ [facility] Home Medications Medication Instructions Recorded Confirmed Type atorvastatin 80 mg tablet (Lipitor) 80 mg PO HS #90 tabs 08/25/23 07/29/24 Rx lancets 31 gauge (Comfort Touch #100 ea 08/25/23 06/29/24 Rx Ultra Thin Lancets) nitroglycerin 0.4 mg sublingual 0.4 mg sublingual UD PRN Chest 08/25/23 07/29/24 Rx tablet (Nitrostat) Pain #25 tabs blood sugar diagnostic (OneTouch #100 ea 09/01/23 06/29/24 Rx Verio test strips) apixaban 2.5 mg tablet (Eliquis) 2.5 mg PO BID #60 tabs 05/24/24 07/29/24 Rx acetaminophen 500 mg tablet 1,000 mg PO Q8H PRN Fever Or Pain 05/25/24 07/29/24 History (Tylenol Extra Strength) albuterol sulfate 90 mcg/actuation 2 puff inhalation DAILY SOB 05/25/24 07/29/24 History aerosol inhaler amiodarone 200 mg tablet 200 mg PO AMHS 05/25/24 07/29/24 History clopidogrel 75 mg tablet 75 mg PO HS 05/25/24 07/29/24 History metoprolol succinate 25 mg 25 mg PO AMHS 05/25/24 07/29/24 History tablet,extended release 24 hr folic acid 1 mg tablet 1 mg PO DAILY #30 tabs 05/29/24 07/29/24 Rx cholecalciferol (vitamin D3) 50 2,000 unit PO HS #90 tabs 06/06/24 07/29/24 Rx mcg (2,000 unit) tablet sertraline 100 mg tablet (Zoloft) 100 mg PO HS #90 tabs 06/23/24 07/29/24 Rx isosorbide mononitrate 30 mg 30 mg PO DAILY 06/29/24 07/29/24 History tablet,extended release 24 hr lorazepam 0.5 mg tablet 0.5 mg PO BID 06/29/24 07/29/24 History losartan 25 mg tablet 25 mg PO DAILY 06/29/24 07/29/24 History melatonin 5 mg capsule 5 mg PO HS insomnia 06/29/24 07/29/24 History spironolactone 25 mg tablet 25 mg PO DAILY #90 tabs 07/03/24 07/29/24 Rx docusate sodium 100 mg tablet 200 mg PO HS 07/27/24 07/29/24 History lorazepam 0.5 mg tablet 0.5 mg PO Q12H PRN Anxiety 07/27/24 07/29/24 History omeprazole 20 mg tablet,delayed 20 mg PO DAILY 07/27/24 07/29/24 History release albuterol sulfate 2.5 mg/3 mL 2.5 mg inhalation Q4H PRN SOB 07/29/24 07/29/24 History (0.083 %) solution for nebulization bisacodyl 10 mg rectal suppository 10 mg VT DAILY PRN Constipation 07/29/24 07/29/24 History (Dulcolax (bisacodyl)) cyanocobalamin (vitamin B-12) 1,000 mcg PO DAILY 07/29/24 07/29/24 History 1,000 mcg tablet (Vitamin B-12) dextromethorphan-guaifenesin 10 10 ml PO UD cough 07/29/24 07/29/24 History mg-100 mg/5 mL oral syrup (Tussin DM) fluticasone propionate 50 2 spray intranasal QAM 07/29/24 07/29/24 History mcg/actuation nasal spray,suspension magnesium hydroxide 400 mg/5 mL 0 mg PO DAILY PRN Constipation 07/29/24 07/29/24 History oral suspension (Milk of Magnesia) sodium phosphates 19 gram-7 118 ml VT DAILY PRN Constipation 07/29/24 07/29/24 History gram/118 mL enema (Fleet Enema) Patient History Medical History 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 DR KENNEDY - NO HX CARDIOVERSION Myocardial Infarction 2010 & 2019...STENT X 1 Asthma LAST USE LAST WEEK Surgical History Hx of cataract surgery B/L H/O heart artery stent HX GA , STENT X1 2019 History of phacoemulsification of cataract of both eyes with intraocular lens implantation History of dilatation and curettage x3 History of total left knee replacement (TKR) History of right breast biopsy x3--benign History of laparoscopy History of bilateral breast reduction surgery History of colonoscopy Family History Mother Family history of diabetes mellitus Myocardial infarction Family/Other Family history of diabetes mellitus cousin Aunt Breast cancer Father Myocardial infarction Stroke Other No family history of adverse response to anesthesia Denies family history of Ovarian cancer Prostate cancer Colorectal cancer Uterine cancer Social History Smoking Status: Never smoker Tobacco Type: Cigarettes Age Started Using Tobacco: 53; Age Quit Using Tobacco: 62; Cigarettes Per Day: HX OCCASSIONAL CIGARETTE 15 YRS AGO; Second Hand Exposure: No; Do You Dip or Chew Tobacco: No; Hx Alcohol Use: No Hx Substance Use: No Preferred Language: Uzbek Communication Ability: Effective Visual Impairment: No Limitations Hearing Ability: Use of Hearing Aid 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: No Beliefs That Will Affect Care: None marital status: / Current Living Situation: Snf Current Living Situation Comment: lives with daughter current occupational status: retired current occupation: worked for [employer] Other Information That Helps Us Care for You: No Feels Safe at Home: Yes Safety Concerns: Feels Safe At This Time Childhood Exposure to Second-Hand Smoke: Yes Diet: low salt Diet Comment: low sodium Dental Care, Regularly: Yes Physical Activity Frequency: Does not Exercise Seatbelt Use: always Sunscreen Use: No Assistive Devices: None Review of Systems Constitutional: no fever Eyes: no problem reported Ear, Nose, Mouth, Throat: no problem reported Respiratory: no cough and no dyspnea Cardiovascular: no chest pain Gastrointestinal: no abdominal pain, no nausea, no vomiting and no diarrhea/loose stools Integumentary: no rash Physical Exam Constitutional: not in distress Eyes: PERRL, conjunctivae normal, anicteric sclerae ENMT: external ear and nose normal, oropharynx normal Neck: trachea midline, no thyromegaly IJ TCC with clean dry dressing in place Respiratory: normal respiratory effort Auscultation: + diminished lung sounds (R base) Cardiovascular: Rate/Rhythm: regular rate and regular rhythm Gastrointestinal (Abdomen): normal bowel sounds, soft, nontender, no hepatosplenomegaly Skin: no rashes, warm and dry normal turgor Neurologic: Speech / Cognition: normal speech Oriented to self, place and month Results & Data Vital Signs (Past 12 Hours) Vital Signs Temp Pulse Pulse Resp BP Pulse Ox O2 Del Method 07/30/24 08:00 36.7 C 61 18 131/72 98 Nasal Cannula 07/30/24 04:09 36.5 C 60 18 145/64 H 95 Nasal Cannula 07/29/24 23:57 36.6 C 60 18 98 Nasal Cannula 07/29/24 22:55 60 07/29/24 20:57 60 18 127/75 07/29/24 20:55 92 Nasal Cannula O2 Flow Rate 07/30/24 08:00 2 07/30/24 04:09 3 07/29/24 23:57 3 07/29/24 22:55 07/29/24 20:57 07/29/24 20:55 3 Laboratory Results Laboratory Results WBC 19.94 K/ul (4.8-10.8) H 07/30/24 04:15 RBC 3.39 M/uL (4.20-5.40) L 07/30/24 04:15 Hgb 10.7 g/dl (12.0-16.0) L 07/30/24 04:15 Hct 33.3 % (37.0-47.0) L 07/30/24 04:15 MCV 98.2 fL (80.0-100.0) 07/30/24 04:15 MCH 31.6 pg (25.0-34.0) 07/30/24 04:15 MCHC 32.1 g/dL (32.0-36.0) 07/30/24 04:15 RDW Std Deviation 57.2 fL (36.4-46.3) H 07/30/24 04:15 RDW Coeff of Nino 15.9 % (11.5-14.5) H 07/30/24 04:15 Plt Count 179 K/uL (130-400) 07/30/24 04:15 MPV 10.0 fL (9.4-12.4) 07/30/24 04:15 Immature Gran % (Auto) 0.4 % 07/29/24 09:10 Neut % (Auto) 46.6 % 07/29/24 09:10 Lymph % (Auto) 50.0 % 07/29/24 09:10 [place] % (Auto) 1.5 % 07/29/24 09:10 Eos % (Auto) 1.1 % 07/29/24 09:10 Baso % (Auto) 0.4 % 07/29/24 09:10 Neut # (Auto) 10.82 K/uL (1.40-6.50) H 07/29/24 09:10 Lymph # (Auto) 11.62 K/uL (1.20-3.40) H 07/29/24 09:10 [place] # (Auto) 0.34 K/uL (0.11-0.59) 07/29/24 09:10 Eos # (Auto) 0.25 K/uL (0.00-0.50) 07/29/24 09:10 Baso # (Auto) 0.10 K/uL (0.00-0.20) 07/29/24 09:10 Immature Gran # (Auto) 0.10 K/uL (0.01-0.20) 07/29/24 09:10 Smudge Cells Present 07/29/24 09:10 Polychromasia 1+ 07/29/24 09:10 Tear Drop Cells 1+ 07/29/24 09:10 Ovalocytes 1+ 07/29/24 09:10 PT 11.9 Seconds (9.0-12.0) 07/29/24 09:10 INR 1.1 (0.9-1.1) 07/29/24 09:10 VBG pH 7.26 (7.36-7.41) L 07/29/24 09:10 VBG pCO2 54 mmHg (38-50) H 07/29/24 09:10 VBG pO2 41 mmHg 07/29/24 09:10 VBG HCO3 24 mmol/L 07/29/24 09:10 VBG O2 Saturation 61.7 % 07/29/24 09:10 VBG Base Excess -3.5 mEq/L 07/29/24 09:10 Sodium 134 mmol/L (136-145) L 07/30/24 04:15 Potassium 4.7 mmol/L (3.5-5.1) 07/30/24 04:15 Chloride 103 mmol/L (98-107) 07/30/24 04:15 Carbon Dioxide 24 mmol/L (21-32) 07/30/24 04:15 Anion Gap 7 (3-11) 07/30/24 04:15 BUN 35 mg/dl (6-23) H 07/30/24 04:15 Creatinine 2.98 mg/dl (0.6-1.2) H 07/30/24 04:15 Est Cr Clr Drug Dosing 15.8 ml/min 07/30/24 04:15 eGFR 15.36 07/30/24 04:15 BUN/Creatinine Ratio 11.7 (10-20) 07/30/24 04:15 Glucose 125 mg/dl (70-99(Fasting)) H 07/30/24 04:15 Lactate 2.3 mmol/L (0.4-2.0) H* 07/29/24 11:06 Calcium 9.9 mg/dl (8.6-10.3) 07/30/24 04:15 Magnesium 1.9 mg/dl (1.7-2.4) 07/29/24 09:10 Iron 65 mcg/dl (35-150) 07/30/24 04:15 TIBC 273 mcg/dl (250-450) 07/30/24 04:15 Unsaturated IBC 208 mcg/dl (155-355) 07/30/24 04:15 Transferrin % Sat 24 % (15-50) 07/30/24 04:15 Total Bilirubin 0.6 mg/dl (0.2-1.0) 07/29/24 09:10 AST 36 U/L (13-39) 07/29/24 09:10 ALT 29 U/L (7-52) 07/29/24 09:10 Alkaline Phosphatase 130 U/L (34-104) H 07/29/24 09:10 Troponin I High Sens 162.3 pg/ml (0-14) H* 07/29/24 19:58 B-Natriuretic Peptide 1712 pg/ml (0-100) H 07/29/24 09:10 Total Protein 6.5 gm/dl (6.0-8.3) 07/29/24 09:10 Albumin 3.8 gm/dl (3.4-5.0) 07/29/24 09:10 Globulin 2.7 gm/dl (2.5-4.0) 07/29/24 09:10 Albumin/Globulin Ratio 1.4 (0.9-2) 07/29/24 09:10 Procalcitonin 1.52 ng/ml (0-0.5) H 07/30/24 04:15 Nasal Screen MRSA (PCR) Negative (Negative) 07/30/24 02:29 Random Vancomycin 20.4 mcg/ml (10-20) H 07/30/24 04:15 Adenovirus (PCR) Not Detected (NotDetected) 07/29/24 09:20 B. pertussis DNA (PCR) Not Detected (NotDetected) 07/29/24 09:20 B.parapertussis DNA PCR Not Detected (NotDetected) 07/29/24 09:20 C. pneumoniae DNA (PCR) Not Detected (NotDetected) 07/29/24 09:20 Coronavirus OC43 (PCR) Not Detected (NotDetected) 07/29/24 09:20 Coronavirus HKU1 (PCR) Not Detected (NotDetected) 07/29/24 09:20 Coronavirus 229E (PCR) Not Detected (NotDetected) 07/29/24 09:20 SARS-CoV-2 (PCR) Not Detected (NotDetected) 07/29/24 09:20 Coronavirus NL63 (PCR) Not Detected (NotDetected) 07/29/24 09:20 Human Metapneumovir PCR Not Detected (NotDetected) 07/29/24 09:20 Influenza Type A (PCR) Not Detected (NotDetected) 07/29/24 09:20 Influenza Type B (PCR) Not Detected (NotDetected) 07/29/24 09:20 M. pneumoniae (PCR) Not Detected (NotDetected) 07/29/24 09:20 Parainfluenza 1 (PCR) Not Detected (NotDetected) 07/29/24 09:20 Parainfluenza 2 (PCR) Not Detected (NotDetected) 07/29/24 09:20 Parainfluenza 3 (PCR) Not Detected (NotDetected) 07/29/24 09:20 Parainfluenza 4 (PCR) Not Detected (NotDetected) 07/29/24 09:20 RSV (PCR) Not Detected (NotDetected) 07/29/24 09:20 Entero/Rhino (PCR) Not Detected (NotDetected) 07/29/24 09:20 Impressions Chest X-Ray 07/29/24 08:55 XR chest 1V portable HISTORY: 78 years-old Female Dyspnea acute shortness of breath COMPARISON: 05/27/2024 TECHNIQUE: AP view of the chest FINDINGS: Cardiac silhouette is enlarged. Dual lead left subclavian pacer/AICD. Dual-lumen right IJ hemodialysis catheter is unchanged. No pneumothorax. Pulmonary edema with layering pleural effusions and right greater than left bibasilar consolidation redemonstrated, not significant change from the prior study. Bones appear grossly intact. IMPRESSION: 1. Cardiomegaly with pulmonary edema. 2. Right greater than left layering pleural effusions with bibasilar consolidation is similar to the prior study. ACT 112: Negative or not required by law. The above report was generated using voice recognition software. It may contain grammatical, syntax or spelling errors. Electronically signed by: Justus Baires M.D. 07/29/2024 9:29 AM PG Care Time/CCT Total # of Minutes Spent Total Time Spent with Patient: Total time spent is greater than 50% in coordination of care (as documented) at patient's floor/unit and/or counseling patient: Coding Level of Care Code 21945 IN/OBS CONSULT LVL 5,80M Diagnoses ESRD on dialysis N18.6; Z99.2 Pulmonary edema J81.1 Aortic stenosis I35.0 HFrEF (heart failure with reduced ejection fraction) I50.20
[2024-07-30] MEDS: CYANOCOBALAMIN (B-12) 500 MCG TABLET PO SCH (08:58)
[2024-07-30] MEDS: SPIRONOLACTONE 25 MG TAB PO SCH (08:58)
[2024-07-30] MEDS: PANTOprazole 40 MG TAB PO SCH (08:59)
[2024-07-30] MEDS: FOLIC ACID 1 MG TAB PO SCH (08:59)
[2024-07-30] MEDS: LOSARTAN POTASSIUM 25 MG TAB PO SCH (08:59)
[2024-07-30] MEDS: ISOSORBIDE MONO EXTENDED REL 30 MG TABCR PO SCH (08:59)
[2024-07-30] MEDS: POLYETHYLENE (MIRALAX) 17 GM PACK PO SCH (09:01)
--- NOTE | 2024-07-30 10:02 | Pharmacy Report ---
Pharmacy PK ABX Note - Date of Service July 30, 2024 - Assessment and Plan Assessment 07/30: * Day #2 of abx therapy. * Afebrile. Leukocytosis improved to 20k. Procal increased today. ESRD so awaiting nephrology recommendation on HD today or tomorrow. * No growth in cultures to date. 07/29: 78 year old F receiving Vancomycin and Cefepime for empiric treatment of sepsis secondary to skin infection vs pneumonia. * Day #1 of antimicrobial therapy. * Afebrile. Leukocytosis of 23k. SCr at 2.78 but patient with ESRD on HD MWF. Procal was 0.28 and lactate elevated at 2.3. * Respiratory biofire negative. MRSA nasal swab pending. Blood cultures pending. Plan Vancomycin * Loading dose: 2000 mg IV x 1 given at 1536 yesterday * Random level this AM was 20.4 mcg/mL. * Per RN, very little residual urine output for this patient. * Unless patient has emergency HD today, will not give another dose of vancomycin today. * Random level ordered for tomorrow morning prior to HD. Cefepime * 1000 mg IV every 24 hours Pharmacy will continue to follow and will adjust dose/frequency as necessary. Thank you. Pharmacy has transitioned to AUC monitoring for vancomycin. AUC/DONOVAN is the preferred PK/PD target and is associated with decreased risk of nephrotoxicity compared to traditional trough targets.
--- NOTE | 2024-07-30 11:24 | Hospitalist Progress Note ---
Date of Service July 30, 2024 Assessment & Plan (1) Acute respiratory failure: Plan: 78-year-old woman with history of HFrEF, severe aortic stenosis, severe multivessel coronary artery disease, CKD on dialysis who was admitted from [place] [facility] with acute on chronic hypoxic respiratory failure due to flash pulmonary edema and sepsis of unclear source. Possibilities include pneumonia, UTI, dialysis line infection. Acute on chronic hypoxic respiratory failure She had acute pulmonary edema on admission that symptomatically was of rapid onset and nearly resolved with temporary CPAP/Bipap, consistent with "flash" pulmonary edema, similar episode 05/2024. She will be prone to this because of her severe , dialysis dependence, brittle volume status. Potentially provoked by sepsis and some mild volume overload. She did not have peripheral edema -continues to have crackles on lung exam and may be mildly volume overloaded, however she is no longer dyspneic and is back on her usual 4L pnc -80 mg IV lasix today per material hauler, resuming usual HD schedule in AM (2) Pulmonary edema: (3) Sepsis: Plan: Sepsis, unclear source, present on admission Leukocytosis exacerbated by underlying CLL and dose of solumedrol given by medics Procalcitonin was elevated at 1.52, lactate mildly elevated Possibly pneumonia, CXR with pulmonary edema and bibasilar infiltrates. MRSA nares neg UTI is possible but unable to get urine specimen despite multiple attempts at I/O catheter. Was on oral cipro for a week at [facility] so urine culture would likely be negative CLABSI is possible with her dialysis line -continue cefepime and vancomycin, started 07/29 -blood cultures pending (4) End stage chronic kidney disease: Plan: ALLAN on CKD-4 on hemodialysis, possibly has progressed to ESRD, very minimal urine output; IJ tunneled HD catheter in place - Dialysis on Wednesday, Wednesday, Wednesday- most recent 07/28 - initially started May 17, 2024 - Nephrology consulted (5) HFrEF (heart failure with reduced ejection fraction): Plan: Acute on chronic systolic and diastolic heart failure, ischemic cardiomyopathy EF 25%, history of VT with BiV pacer AICD Severe aortic stenosis, not a candidate for TAVR Multivessel CAD with history of PCI, not a candidate for CABG Atrial fibrillation Pulmonary hypertension Mild HS-troponin elevation consistent with myocardial demand ischemia from hypoxia and underlying CAD, no evidence of ACS Echo 05/02/2024- LV dilated, LV systolic function reduced, EF 30 to 35%, distal inferior wall akinetic, diastolic dysfunction grade 2, severe valvular , severe MR, RVSP 30 to 40 mmHg BNP 1712 on admission Caution not to drop preload with -see above for volume management -continue plavix, apixaban, atorvastatin -continue metoprolol, losartan, imdur -continue spironolactone -continue amiodarone for rate/rhythm control (6) Leukemia: Plan: CLL - History of DURAN; H&H stable on admission - Daughter states patient can absolutely not receive p.o. iron secondary to severe constipation - Follows with hematology as an outpatient - iron stores reviewed, adequate (7) PAF (paroxysmal atrial fibrillation): (8) DM2 (diabetes mellitus, type 2): Plan: history of - Most recent A1C (03/30/2024) 6.3% - Diet controlled - Pt normally checks sugars every other day Plan GERD- omeprazole HTN- Metoprolol, Imdur, Losartan Mood- Sertraline VTE prophylaxis: Eliquis 2.5 mg p.o. twice daily (renally dosed) Code: DNR/DNI Dispo: return to [facility] Admission and Anticipated Discharge Date Admission Date: July 29, 2024 Subjective Confused and thinks she needs to be ready for care appointment in 6 AM dialysis, however, seems to know that she is in the hospital no shortness of breath today Physical Exam 2 Physical Exam: PHYSICAL EXAMINATION Last 24h vital signs reviewed, see documentation in flowsheet General: sitting up in bed awake and alert looks much better HEENT: Normocephalic, atraumatic, pupils round and equal, sclerae anicteric, no conjunctival injection, moist mucus membranes Lungs: Normal respiratory effort. severely kyphotic crackles chcf up no wheezing nonlabored Heart: distant, systolic murmur right upper sternal border right upper chest hemodialysis catheter, slight erythema at the opening but no tenderness or redness over the tunnel Abdomen: Soft, nontender, nondistended. Bowel sounds present. Extremities: Warm, dry, well-perfused. No extremity edema. Neuro: Alert and oriented x self and intermittently to hospital but not fully to situation, face symmetric, moves 4 extremities well Psych: fussy, Normal affect and behavior Results & Data Results & Data Vital Signs (Past 12 Hours) Vital Signs Temp Pulse Pulse Resp BP Pulse Ox O2 Del Method 07/30/24 08:00 60 07/30/24 08:00 36.7 C 61 18 131/72 98 Nasal Cannula 07/30/24 04:09 36.5 C 60 18 145/64 H 95 Nasal Cannula 07/29/24 23:57 36.6 C 60 18 98 Nasal Cannula O2 Flow Rate 07/30/24 08:00 07/30/24 08:00 2 07/30/24 04:09 3 07/29/24 23:57 3 Laboratory Results 07/30/24 04:15 07/30/24 04:15 PG Care Time/CCT Total # of Minutes Spent Total Time Spent with Patient: Total time spent is greater than 50% in coordination of care (as documented) at patient's floor/unit and/or counseling patient: Coding Level of Care Code 09780 SUB INP/OBS CARE 3/50MIN Diagnoses Acute respiratory failure J96.00 Pulmonary edema J81.1 Sepsis A41.9 End stage chronic kidney disease N18.6 HFrEF (heart failure with reduced ejection fraction) I50.20 Leukemia C95.90 PAF (paroxysmal atrial fibrillation) I48.0 DM2 (diabetes mellitus, type 2) E11.9
[2024-07-30] MEDS ORDERED: ACETAMINOPHEN 500 MG TAB PO PRN (12:24)
[2024-07-30] MEDS: CEFEPIME 1000MG 1,000 MG/10 ML SYR IV SCH (16:52)
[2024-07-30] MEDS: FUROSEMIDE 40 MG/4 ML VIAL IV ONE (21:23)
[2024-07-31 06:08] LABS: Hematocrit (blood only) 32.5 % (37.0-47.0); Hemoglobin 10.5 g/dl (12.0-16.0); Mean Corpuscular Hgb Conc 32.3 g/dL (32.0-36.0); Mean Corpuscular Volume 99.1 fL (80.0-100.0); Platelet Count 196 K/uL (130-400); RDW Coefficient of Variation 16.3 % (11.5-14.5); RDW Standard Deviation 59.7 fL (36.4-46.3); Red Blood Count 3.28 M/uL (4.20-5.40); White Blood Count 15.62 K/ul (4.8-10.8)
[2024-07-31 06:21] LABS: BUN Creatinine Ratio 13.8 (10-20); Calcium 10.1 mg/dl (8.6-10.3); Creatinine Clr Calc Pharmacy 13.9 ml/min; Potassium 4.4 mmol/L (3.5-5.1)
[2024-07-31 08:05] VITALS: RESP 17; O2SAT 91
--- NOTE | 2024-07-31 09:05 | Nephrology Progress Note ---
Date of Service July 31, 2024 Assessment & Plan (1) ESRD on dialysis: Plan: * ESKD-D due to CRS * Patient is a resident at [facility]. She dialyzes MWF. Dialysis prescription is as follows: 4 hours, Revaclear 300, Target weight 87.5 kg, QB 300 cc/minute, 2K, 2 calcium, bicarbonate 32, heparin 2000 units loading, 500 units/hour * HD today. Although patient is below her EDW, will attempt 3 L UF while utilizing Crit-line monitor. Will ask staff pharmacist to perform plasma refill testing at end of treatment to determine whether patient is euvolemic (2) Pulmonary edema: Plan: * Will order CXR following HD today. If patient's R effusion fails to improve with ultrafiltration consider consultation with pulmonology for thoracentesis (3) Aortic stenosis: Plan: * Not a candidate for TAVR due to underlying ASCVD (4) HFrEF (heart failure with reduced ejection fraction): Plan: * Ischemic CMP s/p AICD due to history of VT/torsades Admission and Anticipated Discharge Date Admission Date: July 29, 2024 Subjective Ms. Diaz was evaluated during HD this morning. She was breathing comfortably flat in bed on RA and denied dyspnea or angina. Review of Systems Constitutional: no fever Eyes: no problem reported Ear, Nose, Mouth, Throat: no problem reported Respiratory: no cough and no dyspnea Cardiovascular: no chest pain Gastrointestinal: no abdominal pain, no nausea, no vomiting and no diarrhea/loose stools Integumentary: no rash Physical Exam Constitutional: not in distress Eyes: PERRL, conjunctivae normal, anicteric sclerae ENMT: external ear and nose normal, oropharynx normal Neck: trachea midline, no thyromegaly Respiratory: normal respiratory effort Auscultation: + diminished lung sounds (R base) Cardiovascular: Rate/Rhythm: regular rate and regular rhythm Gastrointestinal (Abdomen): normal bowel sounds, soft, nontender, no hepatosplenomegaly Skin: no rashes, warm and dry normal turgor Neurologic: Speech / Cognition: normal speech Results & Data Vital Signs (Past 12 Hours) Vital Signs Temp Pulse Pulse Resp BP Pulse Ox O2 Del Method 07/31/24 08:04 36.7 C 59 L 17 155/83 H 91 Room Air 07/31/24 04:42 36.6 C 60 16 144/77 H 90 Room Air 07/30/24 22:59 60 07/30/24 22:27 36.6 C 59 L 18 112/69 93 Room Air Laboratory Results Laboratory Results - last 24 hr 07/31/24 05:35 WBC 15.62 H RBC 3.28 L Hgb 10.5 L Hct 32.5 L MCV 99.1 MCH 32.0 MCHC 32.3 RDW Std Deviation 59.7 H RDW Coeff of Nino 16.3 H Plt Count 196 MPV 10.0 Sodium 138 Potassium 4.4 Chloride 105 Carbon Dioxide 24 Anion Gap 9 BUN 46 H Creatinine 3.33 H D Est Cr Clr Drug Dosing 13.9 eGFR 13.45 BUN/Creatinine Ratio 13.8 Glucose 102 H Calcium 10.1 Random Vancomycin 15.0 Microbiology 07/29/24 10:33 Aerobic Blood Culture - Preliminary Blood No growth in Aerobic bottle after 24 hours. Anaerobic Blood Culture - Preliminary No growth in Anaerobic bottle after 24 hours. 07/29/24 Unknown Aerobic Blood Culture - Preliminary Blood No growth in Aerobic bottle after 24 hours. Anaerobic Blood Culture - Preliminary No growth in Anaerobic bottle after 24 hours. PG Care Time/CCT Total # of Minutes Spent Total Time Spent with Patient: Total time spent is greater than 50% in coordination of care (as documented) at patient's floor/unit and/or counseling patient: Coding Level of Care Code 52133 SUB INP/OBS CARE 3/50MIN Diagnoses ESRD on dialysis N18.6; Z99.2 Pulmonary edema J81.1 Aortic stenosis I35.0 HFrEF (heart failure with reduced ejection fraction) I50.20
[2024-07-31 11:23] LABS: Hep B Surface Ag with confirm Negative (Negative)
[2024-07-31 11:32] LABS: Hepatitis B Surface Ab Quant < 3.00 mIU/mL (>or=10mIU/mL Immune); Hepatitis B Surface Antibody Non-Immune
[2024-07-31] MEDS: EPOETIN ALFA 10,000 UNITS/ML VIAL IV ONE (12:27)
[2024-07-31 12:51] VITALS: PULSE 60
--- NOTE | 2024-07-31 13:48 | Discharge Summary ---
Discharge Summary Date of Service July 31, 2024 Principal Dx & Hospital Course #1 = Principal Diagnosis (1) Acute respiratory failure: 78-year-old woman with history of HFrEF, severe aortic stenosis, severe multivessel coronary artery disease, CKD on dialysis who was admitted from [facility] with acute on chronic hypoxic respiratory failure due to flash pulmonary edema and sepsis of unclear source. Possibilities included pneumonia, UTI, dialysis line infection. Acute on chronic hypoxic respiratory failure She had acute pulmonary edema on admission that symptomatically was of rapid onset and nearly resolved over hours with temporary CPAP/Bipap, consistent with "flash" pulmonary edema, similar episode 05/2024. She will be prone to this because of her severe , dialysis dependence, brittle volume status. Potentially provoked by sepsis and some mild volume overload. She did not have peripheral edema - 80 mg IV Lasix on 07/30 - hemodialysis last completed 07/31 - weight is below baseline, has been on room air since yesterday which is better than usual baseline said to be 4L O2 - acute respiratory failure resolved CXR this afternoon to reassess bilateral pleural effusions, which are chronic but have been small through april and may (2) Pulmonary edema: see above (3) Sepsis: Sepsis, unclear source, present on admission Leukocytosis exacerbated by underlying CLL and dose of solumedrol given by medics Procalcitonin was elevated at 1.52, lactate mildly elevated Possibly pneumonia, CXR with pulmonary edema and bibasilar infiltrates. MRSA nares neg UTI is possible but unable to get urine specimen despite multiple attempts at I/O catheter. Was on oral cipro for a week at [facility] so urine culture would likely be negative Initially treated with vancomycin because of risk of CLABSI, but this has been discontinued since blood cultures are negative at 48 hours -cefepime started 07/29, continue cefuroxime to complete a 7 day course -blood cultures pending - continues to have leukocytosis 15,000 however this is close to her baseline with CLL, and much improved from 23,000 on admission. She has had no fevers (4) End stage chronic kidney disease: ALLAN on CKD-4 on hemodialysis, possibly has progressed to ESRD, very minimal urine output; IJ tunneled HD catheter in place - Dialysis on Wednesday, Wednesday, Wednesday initially started May 17, 2024 - Nephrology consulted, discussed with Dr. Tran today (5) HFrEF (heart failure with reduced ejection fraction): Acute on chronic systolic and diastolic heart failure, ischemic cardiomyopathy EF 25%, history of VT with BiV pacer AICD Severe aortic stenosis, not a candidate for TAVR Multivessel CAD with history of PCI, not a candidate for CABG Atrial fibrillation Pulmonary hypertension Mild HS-troponin elevation consistent with myocardial demand ischemia from hypoxia and underlying CAD, no evidence of ACS Echo 05/02/2024- LV dilated, LV systolic function reduced, EF 30 to 35%, distal inferior wall akinetic, diastolic dysfunction grade 2, severe valvular , severe MR, RVSP 30 to 40 mmHg BNP 1712 on admission Caution not to drop preload with -see above for volume management, currently euvolemic -continue plavix, apixaban, atorvastatin -continue metoprolol, losartan, imdur -continue spironolactone -continue amiodarone for rate/rhythm control (6) Leukemia: CLL - History of DURAN; H&H stable on admission - Daughter states patient can absolutely not receive p.o. iron secondary to severe constipation - Follows with hematology as an outpatient - iron stores reviewed, adequate (7) PAF (paroxysmal atrial fibrillation): (8) DM2 (diabetes mellitus, type 2): history of - Most recent A1C (03/30/2024) 6.3% - Diet controlled - Pt normally checks sugars every other day Plan GERD- omeprazole HTN- Metoprolol, Imdur, Losartan Mood- Sertraline Code: DNR/DNI Dispo: return to [facility] I updated her daughter by phone today Admission HPI Per Admitting Provider 78-year-old female presenting via EMS from [facility] for shortness of breath, requiring supplemental oxygen. Currently being treated for UTI. ED course: CBC- WBC 22.23, lymphocyte predominant (11.62) neutrophils 10.82, RBC 4.12, MCV 101, MCHC 31.3, RDW 60.8; PT/INR WNL; VBG pH 7.26, pCO2 54; CMP AG 12, BUN 24, creatinine 2.78, glucose 230, calcium 10.4, magnesium 1.9, initial lactate 2.3 pending repeat, alk phos 130; troponin 49.2; BNP 1712; procalcitonin 0.28; CXR cardiomegaly with pulmonary edema, right greater than left layering pleural effusion with bibasilar consolidation (similar to prior study); EKG sinus rhythm with first-degree AV block, rate around 60. Patient is an 78-year-old female from [facility] with PMHx end-stage CKD, HFrEF, GERD, CAD s/p stents, dyslipidemia, and with presence of ICD in place presenting for shortness of breath. Associated onset shortness of breath the morning of arrival. Daughter is in the room and helped provide history. Daughter states that the patient called her at 0500 this a.m. and was not complaining of shortness of breath or any symptoms. Around 0900 the same day, the patient's daughter was called for the change in patient's breathing. Patient states that she is not currently very short of breath, and that she is normally on 4 L O2 via NC at baseline. States that the shortness of breath came on and concerned her, but she denies episodes of syncope, dizziness, chest pain, palpitations, or cough. Patient is being treated for UTI with ciprofloxacin, based off of clinical picture as UA was not able to be obtained after 2 unsuccessful catheter placement attempts. States that her dysuria has been improving. Multiple bowel movements today. Denies open areas to skin or recent wounds. No recent fever/chills. Currently denying chest pain, palpitations, headache, vision changes, abdominal pain, N/V/D/C, numbness/tingling, dysuria (minimal output however), or additional concerns. Patient states most recent dialysis was 07/28; she receives dialysis every Wednesday/Wednesday/Wednesday. States that she has had similar episodes of this happen before. Reports taking all a.m. medications to the best of her knowledge. Please see Dr. Moreno's attestation for adjustments/additions to treatment plan. Discharge Exam PHYSICAL EXAMINATION Last 24h vital signs reviewed, see documentation in flowsheet General: seen early, awake and alert and lots of requests about various things, wants cold water, breakfast, blankets etc HEENT: Normocephalic, atraumatic, pupils round and equal, sclerae anicteric, no conjunctival injection, moist mucus membranes Lungs: Normal respiratory effort. severely kyphotic diminished and crackles in bases no wheezing nonlabored Heart: distant, systolic murmur right upper sternal border right upper chest hemodialysis catheter Abdomen: Soft, nontender, nondistended. Bowel sounds present. Extremities: Warm, dry, well-perfused. No extremity edema. Neuro: Alert and oriented x self and basic situation, face symmetric, moves 4 extremities well Psych: fussy, Normal affect and behavior Discharge Plan Discharge Items Patient Disposition: Transfer Long-Term Fac Reason For Visit: HYPOXIA, ESRD Discharge Diagnosis: Flash pulmonary edema, sepsis, pneumonia, ESRD on dialysis, HFrEF, Severe aortic stenosis, CAD, Pulmonary hypertension, CLL Activity: Resume your previous activity Weightbearing: Full weightbearing Non-emergency contact: Primary Care Provider Call non-emergency contact if: you have any medication questions, your symptoms worsen and you have a fever Follow-up/Referrals: Roddy Woodruff III, MD [Primary Care Provider] - Diet: Low Sodium (2gm) Fluids: 1800ml (7 cups) Addtl Attending Provider Instructions: Continue dialysis MWF PT and OT evaluate and treat Routine line care - Left upper chest tunneled HD line Complete a course of oral cefuroxime for pneumonia Repeat chest x-ray in 1-2 weeks see if pleural effusions improved Pending Studies at Discharge: Yes (blood cultures, two sets from 07/29/24 NGTD) Stand-Alone Forms: My [facility] Skilled Items Patient informed of condition?: Yes DNR: Yes Discharge Level of Care: Skilled Communicable Disease: No Discharge Prognosis: Improving Lines: None Urinary Catheter: No Medications and DC Order Prescriptions: New cefuroxime axetil 500 mg tablet 500 mg PO DAILY Qty: 4 0RF Rx Instructions: give after dialysis on dialysis days polyethylene glycol 3350 [Miralax] 17 gram Powder In Packet 17 g PO DAILY PRNQty: 0 0RF sennosides [Senokot] 8.6 mg Tablet 8.6 mg PO QAM Qty: 0 0RF Continued atorvastatin [Lipitor] 80 mg tablet 80 mg PO HS Qty: 90 3RF (DME) Comfort Touch Ult Thin Lancets 31 gauge misc See Rx Instructions .Route Qty: 100 3RF Rx Instructions: pt tests every other day nitroglycerin [Nitrostat] 0.4 mg tablet, sublingual 0.4 mg sublingual UD PRN (Reason: Chest Pain) Qty: 25 1RF Rx Instructions: 1 tablet every 5 minutes as needed for chest pain x 3 doses (DME) OneTouch Verio test strips Strip See Rx Instructions .ROUTE .MEDSUPPLY Qty: 100 1RF Rx Instructions: check once daily Dx code: E11.9 cholecalciferol (vitamin D3) 50 mcg (2,000 unit) tablet 2,000 unit PO HS Qty: 90 0RF sertraline [Zoloft] 100 mg tablet 100 mg PO HS Qty: 90 1RF spironolactone 25 mg tablet 25 mg PO DAILY Qty: 90 1RF isosorbide mononitrate 30 mg tablet extended release 24 hr 30 mg PO DAILY lorazepam 0.5 mg tablet 0.5 mg PO BID losartan 25 mg tablet 25 mg PO DAILY melatonin 5 mg capsule 5 mg PO HS docusate sodium 100 mg tablet 200 mg PO HS lorazepam 0.5 mg tablet 0.5 mg PO Q12H PRN (Reason: Anxiety) amiodarone 200 mg tablet 200 mg PO AMHS clopidogrel 75 mg tablet 75 mg PO HS acetaminophen [Tylenol Extra Strength] 500 mg tablet 1,000 mg PO Q8H MDD 3g/24h PRN (Reason: Fever Or Pain) albuterol sulfate 90 mcg/actuation HFA aerosol inhaler 2 puff inhalation DAILY metoprolol succinate 25 mg tablet extended release 24 hr 25 mg PO AMHS folic acid 1 mg Tablet 1 mg PO DAILY Qty: 30 0RF Eliquis 2.5 mg Tablet 2.5 mg PO BID Qty: 60 0RF Hold Instructions: Resume on 06/02/24. until no longer awaiting procedures albuterol sulfate 2.5 mg /3 mL (0.083 %) Solution For Nebulization 2.5 mg INHALATION Q4H PRN (Reason: SOB) cyanocobalamin (vitamin B-12) [Vitamin B-12] 1,000 mcg Tablet 1,000 mcg PO DAILY dextromethorphan-guaifenesin [Tussin DM] 10-100 mg/5 mL Syrup 10 ml PO UD Rx Instructions: Give 10ml by mouth four times a day on Mon/Wed/Fri magnesium hydroxide [Milk of Magnesia] 400 mg/5 mL Suspension 0 mg PO DAILY PRN (Reason: Constipation) Rx Instructions: Milk of Magnesia Gisselle 7.75%: Give 30ml by mouth as needed for constipation aft er no BM for 3 days. Administer on 7-3 shift bisacodyl [Dulcolax (bisacodyl)] 10 mg Suppository 10 mg NJ DAILY PRN (Reason: Constipation) Rx Instructions: Insert 1 unit rectally as needed for constipation, given suppository on day 3; 3-11 shift if no BM after MOM Fleet Enema 19-7 gram/118 mL Enema 118 ml NJ DAILY PRN (Reason: Constipation) Rx Instructions: Insert 1 unit rectally as needed for constipation if no BM after dulcolax, administer fleets on 7-3 shift on day 4 fluticasone propionate 50 mcg/actuation spray,suspension 2 spray intranasal QAM Held omeprazole 20 mg tablet,delayed release (DR/EC) 20 mg PO DAILY Hold Instructions: Resume on 08/05/24. held because of interaction with cefuroxime, resume once off antibiotic Discharge Orders: Discharge Order (Routine); Ordered 07/31/24 Ordered By: Mary Jane Moreno Admission Data Admit Date/Time: 07/29/24 12:28 Attending Provider: Mary Jane Moreno Admit Provider: Mary Jane Moreno Primary Care Provider: Roddy Woodruff III Other Providers: [facility]; Tello Brooks; Jose Cruz Tran Other Interventions: Discharge Summary Assessment (RN) Last Done: 07/31/24 11:16 Hospital Stay Data Consultations 07/29/24 12:00 ED Decision to Admit Stat 07/29/24 13:55 Consult Nephrology Routine Pending Results Patient Have Any Pending Studies at Discharge: Yes (blood cultures, two sets from 07/29/24 NGTD) Discharge Instructions Given to Patient (Per Discharging Provider) Continue dialysis MWF PT and OT evaluate and treat Routine line care - Left upper chest tunneled HD line Complete a course of oral cefuroxime for pneumonia Repeat chest x-ray in 1-2 weeks see if pleural effusions improved Total Time Total Time Spent Total Time Spent (In Minutes): I personally spent: 50 minutes today on clinical care activities including: reviewing chart notes and vital signs reviewing labs discussion with home planning consultant salesperson(s) discussion with career placement specialist examining and counseling the patient counseling the patient's family writing orders writing prescriptions, discharge instructions documentation Coding Level of Care Code 59691 INP/OBS DISCH >30 MIN Diagnoses Acute respiratory failure J96.00 Pulmonary edema J81.1 Sepsis A41.9 End stage chronic kidney disease N18.6 HFrEF (heart failure with reduced ejection fraction) I50.20 Leukemia C95.90 PAF (paroxysmal atrial fibrillation) I48.0 DM2 (diabetes mellitus, type 2) E11.9
--- NOTE | 2024-07-31 14:44 | XRay Report ---
XR chest 1V portable HISTORY: 78 years-old Female hypoxia, pleural effusions acute shortness of breath COMPARISON: 07/29/2024 TECHNIQUE: AP view of the chest FINDINGS: Cardiac silhouette is enlarged. Dual lead left subclavian pacer/AICD. Trace left and small right pleu ral effusions with mild right basilar consolidation. Dual-lumen right IJ hemodialysis catheter is unc hanged. The bones appear grossly intact. IMPRESSION: 1. Cardiomegaly with resolution of the previously described pulmonary edema. 2. Decreased size of the pleural effusions with improved aeration of the lung bases. 3. Moderate residual right basilar consolidation/atelectasis. ACT 112: Negative or not required by law. The above report was generated using voice recognition software. It may contain grammatical, syntax o r spelling errors. Electronically signed by: Justus Baires M.D. 07/31/2024 2:43 PM
[2024-07-31 14:58] VITALS: BP 112/63; TEMP 97.7
--- NOTE | 2024-07-31 17:15 | Electrocardiogram Report ---
Test Reason : Blood Pressure : */* mmHG Vent. Rate : 63 BPM Atrial Rate : 63 BPM P-R Int : 224 ms QRS Dur : 134 ms QT Int : 504 ms P-R-T Axes : 62 15 39 degrees QTcB Int : 515 ms Sinus rhythm with 1st degree A-V block Non-specific intra-ventricular conduction block Minimal voltage criteria for LVH, may be normal variant ( Myles product ) Inferior infarct , age undetermined Cannot rule out Anterior infarct (cited on or before 25-May-2024) Abnormal ECG When compared with ECG of 25-May-2024 13:22, Sinus rhythm has replaced Electronic atrial pacemaker Confirmed by Zack Roach ([id number]) on 07/31/2024 5:14:58 PM Referred By: [facility] Confirmed By: Zack Roach
== END 2024-07-31 15:39 | DRG 871 ==
LOC: ED 08:53 → 4W 12:28

== ENCOUNTER 2024-12-10 19:17 | Inpatient (IN) ==
--- NOTE | 2024-12-10 20:11 | Emergency Department Note ---
Impression & Plan Acute hypoxemic respiratory failure, Elevated troponin, Tachycardia, RLL pneumonia ED Provider Note NAME: WALE POLLARD AGE: 79 SEX: F : 1945 ARRIVES VIA: Ambulance INFORMANT: Patient, nursing report ED PROVIDER(S): Mak Sylvester MD CHIEF COMPLAINT: Unresponsive episode, hypoxia, hypotension MEDICAL DECISION MAKING: Patient presents with the above. Associated fluttering. The patient did have an IV established and blood work was obtained along with a [id number] BMP given the patient's missing dialysis on Wednesday. Pacemaker was interrogated. The patient did have an ultrasound completed of the right upper extremity no obvious palpable thrill noted over the patient's AV fistula. DVT ultrasound also obtained. Bio fire obtained. Patient afebrile. Review of the patient's EKG did show concordant elevation with her left bundle branch block. Not significantly pronounced but this appears to be an acute change. Patient is without any chest pain. I did review the patient's EKGs with on-call rubber attacher Dr. Araujo who was concerned about the possibility of ACS. I discussed that the patient's EKGs with Dr. Gaines of the cancer registry coordinator and after review he does not believe the patient is having an acute STEMI and does not require emergent cardiac catheterization as the patient denies any current chest pain at this time. I did speak with the [employer] customer relations representative who stated the patient may have had some sustained ventricular tachycardia but this may be just below the detection rate. He states that this occurred around 553 which would be consistent with the patient stated that she had a fluttering sensation. No reported paced terminated or shock episodes. I did speak with the ultrasound supervisor and did not noted any obvious abnormalities but still pending formal radiology reports. The patient's chest x-ray does show concern for may be developing right-sided pneumonia. Patient does have a white count of 29,000. Patient reportedly does have a history of leukemia per the daughter at bedside. Anemia noted 9.3. Chronic and stable. Patient is platelet count is unremarkable. Creatinine of 4.1. Patient does have transaminitis with AST and ALT of 264/275. Patient's initial troponin of 5100. Patient still without any chest pains. BioFire negative. Given the patient's elevated troponin I did message back with the cancer registry coordinator Dr. Gaines who agreed with heparin. No plan for cardiac catheterization at this time. Given the patient's possible VT noted on her pacemaker interrogation report the patient was ordered IV amiodarone 150 mg. I did speak the on-call hospitalist service Tierra Nguyen PA-C and Dr. Pandey the patient was admitted to medicine service. Patient's right upper extremity ultrasound show patent AV fistula and no evidence of DVT. Critical Care: I have personally spent 95 minutes of critical care time in direct management of this patient. This includes bedside care, interpretation of diagnostic studies, and testing, discussion with consultants, patient, and family members, and other require inpatient management activities. This 95 minutes is in excess of all separately billable procedures. Discussion w/ other healthcare providers: Dr. Araujo cardiology Dr. Gaines interventional cardiology Tierra Nguyen PA-C and Dr. Pandey inpatient medicine service Prior /Outside records reviewed: I reviewed part of a heart failure visit from September 2024 and [facility]. Known history of ischemic cardiomyopathy and paroxysmal A-fib also history of CHF. Dry weight of 177 pounds. Volume status managed by dialysis team and currently resident [facility] care. Patient with known history of ischemic cardiomyopathy with EF of 30 to 35%. Most recently the patient's EF was noted to be 20 to 25% at [facility] although unclear as to the date. Known history of A-fib rate controlled. Patient is on Coumadin. Patient reportedly is DNR/DNI. Differential diagnosis: Premature contractions, electrolyte abnormality, cardiac dysrhythmia, thyroid dysfunction, infection, toxicologic, anxiety among others were considered. Diagnostics, as interpreted by me: ECG: Sinus with first-degree AV block, rate of 69, wide QRS, left bundle branch block pattern, concordant elevations in V3 through V6. Inferior Q waves noted appear to be chronic from comparison; the slight elevation in concordance in the anterior lateral leads is new from comparison EKG from July 29, 2024. Cardiac monitoring: An order was placed for continuous cardiac monitoring. The monitor shows a rate of 72 with sinus rhythm. Patient was placed on pulse oximetry Medical decision rules: None Imaging studies: I informally interpreted the patient's chest x-ray shows concern for right-sided pneumonia with formal report to follow. HPI: Patient presents due to concern for a period of unresponsiveness. The patient reports that she had a episode of fluttering in her chest which she thinks lasted a whole hour. Patient reportedly stumped over and was not breathing for a period of time. Patient was noted to be hypoxic in the 80s and was subsequently placed on nasal cannula oxygen. Patient did have a recent AV fistula that was placed by Dr. Hernández on . The patient does have a chest permacath. Patient's blood pressure reportedly has been low at her care facility and her dialysis was not completed on Wednesday. Patient is accompanied by her daughter. Patient really does not make occasional urine. She does follow with Dr. Robison cardiology and Dr. Tran with nephrology. PAST MEDICAL HISTORY: See Below PAST SURGICAL HISTORY: See Below SOCIAL HISTORY: See Below HOME MEDICATIONS: See Below ALLERGIES: See Below VITALS: See Below PHYSICAL EXAMINATION: GENERAL: Mildly ill but nontoxic. Nasal cannula in place. EYE EXAM: Normal conjunctiva. PERRL, no anisocoria and EOM's grossly intact w/o pain. OROPHARYNX: Moist mucus membranes, grossly normal dentition. NECK: Trachea midline, no stridor. Supple, no nuchal rigidity, no adenopathy, non-tender. No signs of meningismus. FROM of the neck with good chin to chest and neck extension. LUNGS: Clear to auscultation. Normal chest wall mechanics. HEART: NSR, no MRG. ABDOMEN: Abdomen soft, non-tender, no masses, no rebound or guarding. BACK: No CVA TTP. SKIN: No rashes and no bruising. UPPER EXTREMITIES: Right proximal medial extremity noted with krystian, no obvious palpable thrill. Warm with blanching redness noted near the incisional site. No obvious drainage. LOWER EXTREMITIES: Grossly normal, no edema. NEURO EXAM: A&O x3, cranial nerves II-XII grossly intact, normal speech, moves all 4 extremities. Past Med/Surg History Problem List Left ventricular aneurysm Severe aortic stenosis deemed not surgical candidate [place] [facility] [place] Severe aortic stenosis suspected per 05/2024 ECHO AV fistula Right arm pain Constipation CLL (chronic lymphocytic leukemia) Under observation 3-vessel CAD - 05/2024 cath- LAD 90-100% stenosis, Cx 90-100% stenosis, RCA 100% stenosis (medical management- no anginal symptoms per 10/05/24 HF clinic visit) - 2019- cath showed mid LAD 99% stenosis, D1 99% stenosis, ostial LCx 99% stenosis, subtotaled pRCA- transferred to [place]- was not a candidate for bypass- and underwent PCI - Anteroapical SD 2010 per cardio records Moderate to severe mitral regurgitation Ischemic cardiomyopathy EF 20-24% with anterior wall abnormality - s/p ICD placement Nonsustained ventricular tachycardia Demand ischemia Hypotension Transaminitis UTI (urinary tract infection) Pulmonary edema recurrent flash Aspiration pneumonia RLL pneumonia (Acute) Tachycardia (Acute) Elevated troponin (Acute) Acute hypoxemic respiratory failure (Acute) S/P vascular surgery Encounter for pre-operative examination Complications, dialysis, catheter, mechanical ESRD on dialysis (Acute) Leukocytosis (Acute) Elevated troponin I level (Acute) 07/2024- consistent with myocardial demand ischemia from hypoxia and underlying CAD, no evidence of ACS per discharge summary Hypoxia (Acute) Anemia ICD (implantable cardioverter-defibrillator) in place Paroxysmal ventricular tachycardia S/P coronary artery stent placement Aortic stenosis HFrEF (heart failure with reduced ejection fraction) Weakness (Acute) PND (post-nasal drip) DNS (deviated nasal septum) Otalgia of both ears Toxic encephalopathy Radicular low back pain Chronic cough Compression fracture L2 (chronic) Left ventricular dysfunction CAD (coronary artery disease) Anxiety Spinal stenosis Dyslipidemia (Chronic) GERD (gastroesophageal reflux disease) (Chronic) Medical History Chronic respiratory failure on continuous O2 per records Mitral regurgitation Moderate to severe MR per 05/2024 ECHO Chronic combined systolic and diastolic CHF (congestive heart failure) EF 20-24% per 05/2024 ECHO Near euvolemic per 10/05/24 HF Clinic visit Chronic anemia Cardiorenal syndrome with renal failure end stage Adult failure to thrive Sepsis due to pneumonia 07/2024 per records possible per centre care readmission list ESRD on dialysis M/W/F at [facility] History of placement of internal cardiac defibrillator 05/12/24 Paroxysmal ventricular tachycardia non-sustained DJD (degenerative joint disease), multiple sites 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 skilled nursing 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 Depression Hypertension Seasonal allergies Cerebral artery occlusion DM2 (diabetes mellitus, type 2) Nausea and vomiting after administration of anesthetic agent Osteoarthritis On anticoagulant therapy Hearing deficit Stroke x3 Hyperlipidemia Atrial fibrillation on Eliquis Myocardial Infarction 2010 & 2019 (cath w/1 stent) Asthma Surgical History S/P dialysis catheter insertion 05/2024 and exchange 10/2024, [facility] AICD (automatic cardioverter/defibrillator) present placed 05/12/24 Hx of cardiac cath 06/19/19, [facility] [place] [facility] [place]x of cataract surgery B/L H/O heart artery stent HX SD , STENT X1 2019 History of phacoemulsification of cataract of both eyes with intraocular lens implantation History of dilatation and curettage x3 History of total left knee replacement (TKR) History of right breast biopsy x3--benign History of laparoscopy History of bilateral breast reduction surgery History of colonoscopy Family History Mother Family history of diabetes mellitus Myocardial infarction Family/Other Family history of diabetes mellitus cousin Aunt Breast cancer Father Myocardial infarction Stroke Other No family history of adverse response to anesthesia Denies family history of Ovarian cancer Prostate cancer Colorectal cancer Uterine cancer Social History Smoking Status: Former smoker Tobacco Type: Cigarettes Age Started Using Tobacco: 53; Age Quit Using Tobacco: 62; Cigarettes Per Day: HX OCCASSIONAL CIGARETTE 15 YRS AGO; Hx Alcohol Use: Yes Alcohol type: wine Alcohol Intake Frequency: 2-4 x/Month Hx Substance Use: No Preferred Language: Jamaican Communication Ability: Effective Visual Impairment: No Limitations Hearing Ability: Use of Hearing Aid Coal Miner Required: No Beliefs That Will Affect Care: None marital status: / Current Living Situation: Jail Current Living Situation Comment: centre care resident current occupational status: retired current occupation: worked for [employer] Feels Safe at Home: Yes Safety Concerns: Feels Safe At This Time Childhood Exposure to Second-Hand Smoke: Yes Diet: low salt Diet Comment: low sodium Dental Care, Regularly: Yes Physical Activity Frequency: Does not Exercise Seatbelt Use: always Sunscreen Use: No Assistive Devices: Walker and Wheelchair Allergies Allergies Allergy/AdvReac Type Severity Reaction Status Date / Time bee venom protein (honey bee) Allergy Severe Anaphylaxis Verified 12/10/24 20:30 Penicillins Allergy Severe Rash, Verified 12/10/24 20:30 anaphylaxis Sulfa (Sulfonamide Allergy Severe Rash, Verified 12/10/24 20:30 Antibiotics) anaphylaxis pseudoephedrine Allergy Unknown Unknown, Verified 12/10/24 20:30 on file w/ [facility] amlodipine AdvReac Intermediate Palpitation/Headache, Verified 12/10/24 20:30 on file w/ [facility] Home Meds Home Medications Medication Instructions Recorded Confirmed acetaminophen 500 mg tablet 1,000 mg PO Q8H PRN Fever Or Pain 05/25/24 12/10/24 (Tylenol Extra Strength) albuterol sulfate 90 mcg/actuation 2 puff inhalation Q4H PRN SOB 05/25/24 12/10/24 aerosol inhaler amiodarone 200 mg tablet 200 mg PO BID 05/25/24 12/10/24 clopidogrel 75 mg tablet 75 mg PO HS 05/25/24 12/10/24 metoprolol succinate 25 mg 25 mg PO BID 05/25/24 12/10/24 tablet,extended release 24 hr isosorbide mononitrate 30 mg 30 mg PO HS 06/29/24 12/10/24 tablet,extended release 24 hr lorazepam 0.5 mg tablet 0.5 mg PO BID 06/29/24 12/10/24 melatonin 5 mg capsule 5 mg PO HS insomnia 06/29/24 12/10/24 docusate sodium 100 mg tablet 200 mg PO HS 07/27/24 12/10/24 omeprazole 20 mg tablet,delayed 20 mg PO HS 07/27/24 12/10/24 release bisacodyl 10 mg rectal suppository 10 mg WA DAILY PRN Constipation 07/29/24 12/10/24 (Dulcolax (bisacodyl)) fluticasone propionate 50 2 spray intranasal 3XWK 07/29/24 12/10/24 mcg/actuation nasal spray,suspension sodium phosphates 19 gram-7 118 ml WA DAILY PRN Constipation 07/29/24 12/10/24 gram/118 mL enema (Fleet Enema) levothyroxine 50 mcg capsule 50 mcg PO .QPM@2100 10/05/24 12/10/24 acetaminophen 325 mg tablet 650 mg PO 3XWK 11/28/24 12/10/24 sennosides 8.6 mg tablet (Senokot) 8.6 mg PO QPM 11/28/24 12/10/24 sertraline 100 mg tablet (Zoloft) 100 mg PO HS 11/28/24 12/10/24 acetaminophen 325 mg tablet 650 mg PO 4XWK 12/10/24 12/10/24 (Tylenol) aluminum-mag hydroxide-simethicone 30 ml PO Q6H PRN Indigestion 12/10/24 12/10/24 400 mg-400 mg-40 mg/5 mL oral susp (Maalox Maximum Strength) cyanocobalamin (vitamin B-12) 1,000 mcg PO HS 12/10/24 12/10/24 1,000 mcg tablet (Vitamin B-12) fluticasone propionate 50 2 spray intranasal 4XWK 12/10/24 12/10/24 mcg/actuation nasal spray,suspension folic acid 1 mg tablet 1 mg PO HS 12/10/24 12/10/24 promethazine 25 mg tablet 25 mg PO Q6H PRN NAUSEA/VOMITING 12/10/24 12/10/24 protein supplement 1 ea PO 4XWK 12/10/24 12/10/24 spironolactone 25 mg tablet 25 mg PO HS 12/10/24 12/10/24 Previous Rx's Medication Instructions Recorded atorvastatin 80 mg tablet (Lipitor) 80 mg PO HS #90 tabs 08/25/23 lancets 31 gauge (Comfort Touch #100 ea 08/25/23 Ultra Thin Lancets) nitroglycerin 0.4 mg sublingual 0.4 mg sublingual UD PRN Chest 08/25/23 tablet (Nitrostat) Pain #25 tabs blood sugar diagnostic (OneTouch #100 ea 09/01/23 Verio test strips) apixaban 2.5 mg tablet (Eliquis) 2.5 mg PO BID #60 tabs 05/24/24 cholecalciferol (vitamin D3) 50 2,000 unit PO HS #90 tabs 06/06/24 mcg (2,000 unit) tablet oxycodone-acetaminophen 5 mg-325 1 tab PO Q6H PRN pain #20 tabs 12/07/24 mg tablet (Percocet) Results & Data (ED) Vital Signs Vital Signs - 24 hr 12/10/24 19:12 12/10/24 19:23 12/10/24 19:40 Temperature 37.1 C Temperature Source Oral Pulse Rate 74 74 68 Pulse Rate [Apical] Pulse Rhythm [Apical] Respiratory Rate 14 20 Respiratory Effort / Characteristics Non-Labored Respiratory Depth Normal Respiratory Pattern Regular Blood Pressure 96/55 L Blood Pressure [Left Arm] Blood Pressure Mean 68 Blood Pressure Mean [Left Arm] Blood Pressure Position Sitting Blood Pressure Position [Left Arm] Pulse Oximetry 87 L 95 Oxygen Delivery Method Room Air Nasal Cannula Oxygen Flow Rate 2 Sepsis Recent Fever Within 48 Hours No Sepsis New/Unexplained Change in Mental Status N/A Sepsis Action Taken by Nursing No Action Required Oxygen Flow Rate - Titration Pulse Oximetry Post Tiitration 12/10/24 19:44 12/10/24 21:44 12/10/24 22:31 Temperature Temperature Source Pulse Rate Pulse Rate [Apical] 65 61 Pulse Rhythm [Apical] Regular Respiratory Rate 21 22 Respiratory Effort / Characteristics Non-Labored Respiratory Depth Normal Respiratory Pattern Blood Pressure Blood Pressure [Left Arm] 124/53 L 102/64 Blood Pressure Mean Blood Pressure Mean [Left Arm] 76 76 Blood Pressure Position Blood Pressure Position [Left Arm] Lying Lying Pulse Oximetry 87 L 94 94 Oxygen Delivery Method Room Air Nasal Cannula Nasal Cannula Oxygen Flow Rate 0 2 2 Sepsis Recent Fever Within 48 Hours Sepsis New/Unexplained Change in Mental Status Sepsis Action Taken by Nursing Oxygen Flow Rate - Titration 2 Pulse Oximetry Post Tiitration 95 12/10/24 23:15 Temperature Temperature Source Pulse Rate 60 Pulse Rate [Apical] Pulse Rhythm [Apical] Respiratory Rate Respiratory Effort / Characteristics Respiratory Depth Respiratory Pattern Blood Pressure Blood Pressure [Left Arm] Blood Pressure Mean Blood Pressure Mean [Left Arm] Blood Pressure Position Blood Pressure Position [Left Arm] Pulse Oximetry Oxygen Delivery Method Oxygen Flow Rate Sepsis Recent Fever Within 48 Hours Sepsis New/Unexplained Change in Mental Status Sepsis Action Taken by Nursing Oxygen Flow Rate - Titration Pulse Oximetry Post Tiitration Home Medications Current Medication List: was personally reviewed by me Laboratory Data Attestation: I reviewed the patient's lab results. 12/14/24 06:34 12/12/24 05:37 Lab Results 12/10/24 12/10/24 12/10/24 Range/Units 19:47 20:56 20:58 WBC 29.57 H (4.8-10.8) K/ul RBC 2.80 L (4.20-5.40) M/uL Hgb 9.3 L (12.0-16.0) g/dl POC Hgb 9.2 L (12.0-16.0) g/dl Hct 28.4 L (37.0-47.0) % POC Hct 27 L (37-47) % MCV 101.4 H (80.0-100.0) fL MCH 33.2 (25.0-34.0) pg MCHC 32.7 (32.0-36.0) g/dL RDW Std Deviation 52.6 H (36.4-46.3) fL RDW Coeff of Nino 14.3 (11.5-14.5) % Plt Count 217 (130-400) K/uL MPV 10.2 (9.4-12.4) fL Immature Gran % (Auto) 0.7 % Neut % (Auto) 51.9 % Lymph % (Auto) 43.3 % [place] % (Auto) 3.7 % Eos % (Auto) 0.1 % Baso % (Auto) 0.3 % Neut # (Auto) 15.36 H (1.40-6.50) K/uL Lymph # (Auto) 12.81 H (1.20-3.40) K/uL [place] # (Auto) 1.08 H (0.11-0.59) K/uL Eos # (Auto) 0.03 (0.00-0.50) K/uL Baso # (Auto) 0.08 (0.00-0.20) K/uL Immature Gran # (Auto) 0.21 H (0.01-0.20) K/uL Polychromasia 1+ PT 12.3 H (9.0-12.0) Seconds INR 1.1 (0.9-1.1) APTT 34 H (21-31) Seconds PTT Ratio 1.3 POC Sodium 132 L (135-144) mmol/L Sodium 133 L (136-145) mmol/L POC Potassium 5.0 (3.3-5.0) mmol/L Potassium 5.0 (3.5-5.1) mmol/L POC Chloride 98 L (101-112) mmol/L Chloride 98 (98-107) mmol/L Carbon Dioxide 28 (21-32) mmol/L POC Total CO2 23 L (24-31) mmol/L Anion Gap 7 (3-11) POC Anion Gap 17.0 (16-25) mmol/L POC BUN 47 H (7-18) mg/dl BUN 56 H (6-23) mg/dl Creatinine 4.19 H (0.6-1.2) mg/dl POC Creatinine 4.7 H* (0.6-1.3) mg/dl Est Cr Clr Drug Dosing 10.9 ml/min eGFR 10.14 BUN/Creatinine Ratio 13.4 (10-20) Glucose 171 H (70-99(Fasting)) mg/dl POC Glucose (other) 167 H (70-99) mg/dl Calcium 9.3 (8.6-10.3) mg/dl POC Ioniz Calcium [place] 1.15 (1.12-1.32) mmol/l Phosphorus 4.4 (2.5-4.9) mg/dl Magnesium 2.9 H (1.7-2.4) mg/dl Total Bilirubin 0.8 (0.2-1.0) mg/dl AST 264 H (13-39) U/L ALT 275 H (7-52) U/L Alkaline Phosphatase 125 H (34-104) U/L Troponin I High Sens 5188.4 H* (0-14) pg/ml Total Protein 6.3 (6.0-8.3) gm/dl Albumin 3.5 (3.4-5.0) gm/dl Globulin 2.8 (2.5-4.0) gm/dl Albumin/Globulin Ratio 1.3 (0.9-2) Urine Color Urine Appearance (Clear) Urine pH (4.5-7.5) Ur Specific [place] (1.000-1.030) Urine Protein (Negative) Urine Glucose (UA) (Negative) Urine Ketones (Negative) Urine Blood (Negative) Urine Nitrite (Negative) Urine Bilirubin (Negative) Urine Urobilinogen (Negative) Ur Leukocyte Esterase (Negative) Urine WBC (Auto) (0-5) /hpf Urine RBC (Auto) (0-2) /hpf U Hyaline Cast (Auto) (0-2) /lpf U Epithel Cells (Auto) (0-2) /hpf Urine Bacteria (Auto) (None Seen) Hyaline Casts (None Presnt) /lpf Nasal Screen MRSA (PCR) (Negative) Adenovirus (PCR) Not Detected (NotDetected) B. pertussis DNA (PCR) Not Detected (NotDetected) B.parapertussis DNA PCR Not Detected (NotDetected) C. pneumoniae DNA (PCR) Not Detected (NotDetected) Coronavirus OC43 (PCR) Not Detected (NotDetected) Coronavirus HKU1 (PCR) Not Detected (NotDetected) Coronavirus 229E (PCR) Not Detected (NotDetected) SARS-CoV-2 (PCR) Not Detected (NotDetected) Coronavirus NL63 (PCR) Not Detected (NotDetected) Human Metapneumovir PCR Not Detected (NotDetected) Influenza Type A (PCR) Not Detected (NotDetected) Influenza Type B (PCR) Not Detected (NotDetected) M. pneumoniae (PCR) Not Detected (NotDetected) Parainfluenza 1 (PCR) Not Detected (NotDetected) Parainfluenza 2 (PCR) Not Detected (NotDetected) Parainfluenza 3 (PCR) Not Detected (NotDetected) Parainfluenza 4 (PCR) Not Detected (NotDetected) RSV (PCR) Not Detected (NotDetected) Entero/Rhino (PCR) Not Detected (NotDetected) 12/10/24 12/10/24 12/10/24 Range/Units 21:43 22:58 23:15 WBC (4.8-10.8) K/ul RBC (4.20-5.40) M/uL Hgb (12.0-16.0) g/dl POC Hgb (12.0-16.0) g/dl Hct (37.0-47.0) % POC Hct (37-47) % MCV (80.0-100.0) fL MCH (25.0-34.0) pg MCHC (32.0-36.0) g/dL RDW Std Deviation (36.4-46.3) fL RDW Coeff of Nino (11.5-14.5) % Plt Count (130-400) K/uL MPV (9.4-12.4) fL Immature Gran % (Auto) % Neut % (Auto) % Lymph % (Auto) % [place] % (Auto) % Eos % (Auto) % Baso % (Auto) % Neut # (Auto) (1.40-6.50) K/uL Lymph # (Auto) (1.20-3.40) K/uL [place] # (Auto) (0.11-0.59) K/uL Eos # (Auto) (0.00-0.50) K/uL Baso # (Auto) (0.00-0.20) K/uL Immature Gran # (Auto) (0.01-0.20) K/uL Polychromasia PT (9.0-12.0) Seconds INR (0.9-1.1) APTT (21-31) Seconds PTT Ratio POC Sodium (135-144) mmol/L Sodium (136-145) mmol/L POC Potassium (3.3-5.0) mmol/L Potassium (3.5-5.1) mmol/L POC Chloride (101-112) mmol/L Chloride (98-107) mmol/L Carbon Dioxide (21-32) mmol/L POC Total CO2 (24-31) mmol/L Anion Gap (3-11) POC Anion Gap (16-25) mmol/L POC BUN (7-18) mg/dl BUN (6-23) mg/dl Creatinine (0.6-1.2) mg/dl POC Creatinine (0.6-1.3) mg/dl Est Cr Clr Drug Dosing ml/min eGFR BUN/Creatinine Ratio (10-20) Glucose (70-99(Fasting)) mg/dl POC Glucose (other) (70-99) mg/dl Calcium (8.6-10.3) mg/dl POC Ioniz Calcium [place] (1.12-1.32) mmol/l Phosphorus (2.5-4.9) mg/dl Magnesium (1.7-2.4) mg/dl Total Bilirubin (0.2-1.0) mg/dl AST (13-39) U/L ALT (7-52) U/L Alkaline Phosphatase (34-104) U/L Troponin I High Sens 5723.6 H* (0-14) pg/ml Total Protein (6.0-8.3) gm/dl Albumin (3.4-5.0) gm/dl Globulin (2.5-4.0) gm/dl Albumin/Globulin Ratio (0.9-2) Urine Color Dark Yellow Urine Appearance Turbid A (Clear) Urine pH 5.0 (4.5-7.5) Ur Specific [place] 1.025 (1.000-1.030) Urine Protein Trace H (Negative) Urine Glucose (UA) Negative (Negative) Urine Ketones Trace H (Negative) Urine Blood Negative (Negative) Urine Nitrite Negative (Negative) Urine Bilirubin Negative (Negative) Urine Urobilinogen Negative (Negative) Ur Leukocyte Esterase 2+ H (Negative) Urine WBC (Auto) 6-10 H (0-5) /hpf Urine RBC (Auto) 0-2 (0-2) /hpf U Hyaline Cast (Auto) >20 H (0-2) /lpf U Epithel Cells (Auto) 6-10 H (0-2) /hpf Urine Bacteria (Auto) 4+ H (None Seen) Hyaline Casts Present A (None Presnt) /lpf Nasal Screen MRSA (PCR) Negative (Negative) Adenovirus (PCR) (NotDetected) B. pertussis DNA (PCR) (NotDetected) B.parapertussis DNA PCR (NotDetected) C. pneumoniae DNA (PCR) (NotDetected) Coronavirus OC43 (PCR) (NotDetected) Coronavirus HKU1 (PCR) (NotDetected) Coronavirus 229E (PCR) (NotDetected) SARS-CoV-2 (PCR) (NotDetected) Coronavirus NL63 (PCR) (NotDetected) Human Metapneumovir PCR (NotDetected) Influenza Type A (PCR) (NotDetected) Influenza Type B (PCR) (NotDetected) M. pneumoniae (PCR) (NotDetected) Parainfluenza 1 (PCR) (NotDetected) Parainfluenza 2 (PCR) (NotDetected) Parainfluenza 3 (PCR) (NotDetected) Parainfluenza 4 (PCR) (NotDetected) RSV (PCR) (NotDetected) Entero/Rhino (PCR) (NotDetected) Administered Medications Amiodarone HCl (Amiodarone 200 Mg Tab) 200 mg PO BIDM VINAYAK Stop: 01/12/25 07:59 Last Admin: 12/14/24 09:06 Dose: 200 mg Documented By: Admin: 12/13/24 17:59 Dose: 200 mg Documented By: Admin: 12/13/24 08:29 Dose: 200 mg Documented By: DUNCAN Apixaban (Apixaban 2.5 Mg Tab) 2.5 mg PO BID VINAYAK Stop: 01/11/25 20:59 Last Admin: 12/14/24 10:37 Dose: Not Given Documented By: Admin: 12/13/24 20:29 Dose: 2.5 mg Documented By: Admin: 12/13/24 08:29 Dose: 2.5 mg Documented By: Admin: 12/12/24 20:41 Dose: 2.5 mg Documented By: NILE Docusate Sodium (Docusate Sodium 100 Mg Cap) 100 mg PO BID PRN PRN Reason: Constipation Stop: 01/10/25 02:34 Last Admin: 12/14/24 09:04 Dose: 100 mg Documented By: DELMAR Gabapentin (Gabapentin 250 Mg/5 Ml 470 Ml Btl) 50 mg PO BID VINAYAK Stop: 01/13/25 08:59 Last Admin: 12/14/24 10:29 Dose: 50 mg Documented By: DELMAR Levofloxacin/Dextrose (Levaquin/D5w) 500 mg in 100 mls @ 100 mls/hr IV Q48H VINAYAK Stop: 12/16/24 05:59 Last Infusion: 12/13/24 09:46 Dose: Infused Documented By: Admin: 12/13/24 06:58 Dose: 100 mls/hr Documented By: NILE Isosorbide Mononitrate (Isosorbide Amite Extended Rel 30 Mg Tabcr) 30 mg PO HS VINAYAK Stop: 01/10/25 20:59 Last Admin: 12/13/24 20:30 Dose: 30 mg Documented By: Admin: 12/12/24 20:44 Dose: 30 mg Documented By: Admin: 12/11/24 20:54 Dose: 30 mg Documented By: NILE Levothyroxine Sodium (Levothyroxine Sodium 50 Mcg Tablet) 50 mcg PO DAILY@2100 VINAYAK Stop: 01/10/25 20:59 Last Admin: 12/13/24 20:29 Dose: 50 mcg Documented By: Admin: 12/12/24 20:43 Dose: 50 mcg Documented By: Admin: 12/11/24 20:54 Dose: 50 mcg Documented By: NILE Metoprolol Succinate (Metoprolol Succ 25mg Ext Rel Tab) 25 mg PO BID@1230,2030 [facility] Stop: 01/10/25 12:29 Last Admin: 12/13/24 20:30 Dose: 25 mg Documented By: Admin: 12/13/24 13:06 Dose: Not Given Documented By: Admin: 12/12/24 20:41 Dose: 25 mg Documented By: Admin: 12/12/24 11:47 Dose: 25 mg Documented By: Admin: 12/11/24 20:54 Dose: 25 mg Documented By: Admin: 12/11/24 13:34 Dose: Not Given Documented By: MARY Ondansetron HCl (Ondansetron Inj 2 Mg/Ml 2 Ml Vial) 4 mg IV Q6H PRN PRN Reason: Nausea And Vomiting Stop: 01/10/25 02:34 Last Admin: 12/11/24 22:14 Dose: 4 mg Documented By: NILE Oxycodone HCl (Oxycodone Hcl Ir 5 Mg Tab (Immediate Release)) 2.5 mg PO Q6H PRN PRN Reason: Pain Stop: 12/26/24 08:54 Last Admin: 12/14/24 09:04 Dose: 2.5 mg Documented By: Admin: 12/13/24 10:43 Dose: 2.5 mg Documented By: Admin: 12/12/24 09:20 Dose: 2.5 mg Documented By: DUNCAN Pantoprazole Sodium (Pantoprazole 40 Mg Tab) 40 mg PO [facility] Stop: 01/10/25 20:59 Last Admin: 12/13/24 20:30 Dose: 40 mg Documented By: Admin: 12/12/24 20:43 Dose: 40 mg Documented By: Admin: 12/11/24 20:54 Dose: 40 mg Documented By: NILE Polyethylene Glycol (Polyethylene (Miralax) 17 Gm Pack) 17 gm PO DAILY VINAYAK Stop: 01/11/25 13:44 Last Admin: 12/14/24 09:04 Dose: 17 gm Documented By: Admin: 12/13/24 08:28 Dose: Not Given Documented By: Admin: 12/12/24 13:57 Dose: 17 gm Documented By: DUNCAN Sertraline HCl (Sertraline Hcl 100 Mg Tablet) 100 mg PO HS [facility] Stop: 01/10/25 20:59 Last Admin: 12/13/24 20:30 Dose: 100 mg Documented By: Admin: 12/12/24 20:43 Dose: 100 mg Documented By: Admin: 12/11/24 20:54 Dose: 100 mg Documented By: NILE Discontinued Medications Amiodarone HCl (Amiodarone 200 Mg Tab) 200 mg PO NOW ONE Stop: 12/12/24 20:24 Last Admin: 12/12/24 20:46 Dose: 200 mg Documented By: NILE Bisacodyl (Bisacodyl 10 Mg Supp) 10 mg WA NOW STA Stop: 12/12/24 13:35 Last Admin: 12/12/24 13:57 Dose: 10 mg Documented By: DUNCAN Epoetin Armaan (Epoetin Armaan 10,000 Units/Ml Vial) 10,000 units IV ONE ONE Stop: 12/13/24 10:01 Last Admin: 12/13/24 10:57 Dose: 10,000 units Documented By: EPHRAIM Gabapentin (Gabapentin 250 Mg/5 Ml 470 Ml Btl) 50 mg PO [facility] Stop: 01/11/25 20:59 Last Admin: 12/13/24 20:29 Dose: 50 mg Documented By: Admin: 12/12/24 20:42 Dose: 50 mg Documented By: NILE Heparin Sodium/Dextrose (Heparin Iv Adult Wt-Based Low-Dose *No* Initial Bolus Protocol) 1 each IV ONE STA; Protocol Stop: 12/10/24 21:51 Last Admin: 12/10/24 22:36 Dose: Not Given Documented By: YANNICK Clindamycin Phosphate (Cleocin/D5w) 900 mg in 50 mls @ 100 mls/hr IV NOW ONE Stop: 12/10/24 20:42 Last Infusion: 12/10/24 21:57 Dose: Infused Documented By: Admin: 12/10/24 21:27 Dose: 100 mls/hr Documented By: YANNICK Cefepime HCl (Maxipime 2000mg) 2,000 mg in 20 mls @ 5 mls/min IV NOW STA; Protocol Stop: 12/10/24 20:29 Last Admin: 12/10/24 21:56 Dose: 5 mls/min Documented By: YANNICK Amiodarone HCl/Dextrose (Nexterone / D5w) 150 mg in 100 mls @ 600 mls/hr IV NOW STA Stop: 12/10/24 21:59 Last Infusion: 12/10/24 22:51 Dose: Infused Documented By: YANNICK Co-signed By: ORTEGA Admin: 12/10/24 22:31 Dose: 600 mls/hr Documented By: YANNICK Co-signed By: ARNJAN Heparin Sodium/Dextrose (Heparin 18944 Unit/500 Ml D5w) 25,000 units in 500 mls @ 16 mls/hr IV .Q24H VINAYAK; Protocol Stop: 01/09/25 22:14 Last Titration: 12/11/24 06:12 Dose: Infused Documented By: NILE Co-signed By: VIANEY Admin: 12/10/24 22:37 Dose: 800 units/hr, 16 mls/hr Documented By: YANNICK Co-signed By: RANJAN Amiodarone HCl/Dextrose (Nexterone / D5w) 360 mg in 200 mls @ 33.333 mls/hr IV ONE ONE; Protocol Stop: 12/11/24 04:30 Last Infusion: 12/11/24 05:03 Dose: Infused Documented By: NILE Co-signed By: VIANEY Admin: 12/10/24 23:02 Dose: 1 mg/min, 33.3 mls/hr Documented By: YANNICK Co-signed By: WENDI Amiodarone HCl/Dextrose (Nexterone / D5w) 360 mg in 200 mls @ 16.667 mls/hr IV .Q12H VINAYAK Stop: 01/10/25 04:29 Last Infusion: 12/11/24 09:50 Dose: Infused Documented By: MARY Co-signed By: ALVAREZ Admin: 12/11/24 04:39 Dose: 0.5 mg/min, 16.7 mls/hr Documented By: NILE Co-signed By: NOLBERTO Levofloxacin/Dextrose (Levaquin/D5w) 750 mg in 150 mls @ 100 mls/hr IV ONE ONE; Protocol Stop: 12/11/24 04:04 Last Infusion: 12/11/24 05:00 Dose: Infused Documented By: Admin: 03/31/25 03:21 Dose: 100 mls/hr Documented By: [facility] Imaging Data Radiologist's Impression: Chest X-Ray 12/10/24 19:40 Exam(s): XR CXR 1 VIEW EXAM: XR Chest, 1 View CLINICAL HISTORY: Reason for exam: Dyspnea. TECHNIQUE: Frontal view of the chest. COMPARISON: 07/31/2024 FINDINGS: Lungs: Interstitial prominence favored to represent edema right greater than left. Atelectasis at the lung bases. Pleural space: No pleural effusion. No pneumothorax. Heart: Unremarkable. No cardiomegaly. Tubes, lines and devices: Dialysis catheter terminates at the cavoatrial junction. Pacemaker leads in place. IMPRESSION: Interstitial prominence favored to represent edema right greater than left. Electronically signed by: Reynaldo Ferro MD 12/10/24 22:05 PM Hemodialysis Access Duplex US 12/10/24 19:51 Exam(s): US OTHER US hemodialysis fistula EXAM: Us Hemodialysis Fistula CLINICAL HISTORY: Reason for exam: eval for patency, recent placement. TECHNIQUE: Real-time ultrasound of a hemodialysis fistula with image documentation. COMPARISON: No relevant prior studies available. FINDINGS: A patent AV fistula is noted in the right upper arm. Proximal graft: 88 cm/s Anastomotic site: 342 cm/s Brachial artery distal to anastomosis: 289 cm/s There is soft tissue edema. IMPRESSION: A patent AV fistula is noted in the right upper arm. Electronically signed by: Niko Hsu MD 12/10/24 23:16 PM Venous Doppler Study 12/10/24 19:51 Exam(s): US VENOUS RIGHT UPPER EXTREMITY EXAM: US Duplex Right Upper Extremity Veins CLINICAL HISTORY: Reason for exam: swelling/pain; recent AVF placement. TECHNIQUE: Real-time duplex ultrasound scan of the right upper extremity veins integrating B-mode two-dimensional vascular structure, Doppler spectral analysis, color flow Doppler imaging and compression. COMPARISON: No relevant prior studies available. FINDINGS: The exam is limited. Deep veins: Unremarkable. No DVT in the internal jugular, subclavian, axillary, or brachial veins. The veins demonstrate normal color flow, are normally compressible, with normal phasic flow and/or augmentation response. Superficial veins: Unremarkable. No thrombus in the visualized basilic and cephalic veins. An AV fistula is noted. Soft tissues: There is soft tissue edema.. IMPRESSION: Limited exam. No ultrasound evidence of deep venous thrombosis in the right upper extremity.. Electronically signed by: Niko Hsu MD 12/10/24 23:08 PM Discharge Plan Visit Data Chief Complaint: Respiratory Problems Stated Complaint: RESPIRATORY PROBLEMS, HYPOTENSION ED Provider: Mak Sylvester Discharge Problem: Acute hypoxemic respiratory failure, Elevated troponin, Tachycardia, RLL pneumonia Patient Disposition: Admitted As Inpatient Discharge Instructions Interventions: ED Discharge Assessment Last Done: 12/11/24 00:30 Discharge Problem: RLL pneumonia Qualifiers: Pneumonia type: due to unspecified organism Qualified Code(s): J18.9 - Pneumonia, unspecified organism
[2024-12-10 20:47] LABS: Adenovirus PCR Not Detected (NotDetected); Bordetella parapertussis PCR Not Detected (NotDetected); Bordetella pertussis PCR Not Detected (NotDetected); Chlamydia pneumoniae PCR Not Detected (NotDetected); Coronavirus 229E PCR Not Detected (NotDetected); Coronavirus CoV-2 (COVID19)PCR Not Detected (NotDetected); Coronavirus HKU1 PCR Not Detected (NotDetected); Coronavirus NL63 PCR Not Detected (NotDetected); Coronavirus OC43PCR Not Detected (NotDetected); Human Metapneumovirus PCR Not Detected (NotDetected); Influenza A PCR Not Detected (NotDetected); Influenza B PCR Not Detected (NotDetected); Mycoplasma pneumoniae PCR Not Detected (NotDetected); Parainfluenza Virus 1 PCR Not Detected (NotDetected); Parainfluenza Virus 2 PCR Not Detected (NotDetected); Parainfluenza Virus 3 PCR Not Detected (NotDetected); Parainfluenza Virus 4 PCR Not Detected (NotDetected); Respiratory Syncytial VirusPCR Not Detected (NotDetected); Rhinovirus/Enterovirus PCR Not Detected (NotDetected)
[2024-12-10 21:10] LABS: iSTAT Creatinine 4.7 mg/dl (0.6-1.3); iSTAT Hemoglobin 9.2 g/dl (12.0-16.0); iSTAT Ionized Calcium 1.15 mmol/l (1.12-1.32)
[2024-12-10] MEDS: CLINDAMYCIN/D5W 900 MG/50 ML BAG IV ONE (21:27)
[2024-12-10 21:31] LABS: Albumin Globulin Ratio 1.3 (0.9-2); Albumin Level 3.5 gm/dl (3.4-5.0); BUN Creatinine Ratio 13.4 (10-20); Bilirubin,Total 0.8 mg/dl (0.2-1.0); Calcium 9.3 mg/dl (8.6-10.3); Creatinine Clr Calc Pharmacy 10.9 ml/min; Globulin 2.8 gm/dl (2.5-4.0); Magnesium 2.9 mg/dl (1.7-2.4); Phosphorus 4.4 mg/dl (2.5-4.9); Total Protein 6.3 gm/dl (6.0-8.3)
[2024-12-10 21:39] LABS: Hematocrit (blood only) 28.4 % (37.0-47.0); Hemoglobin 9.3 g/dl (12.0-16.0); Mean Corpuscular Hemoglobin 33.2 pg (25.0-34.0); Mean Corpuscular Hgb Conc 32.7 g/dL (32.0-36.0); Mean Corpuscular Volume 101.4 fL (80.0-100.0); Mean Platelet Volume 10.2 fL (9.4-12.4); Platelet Count 217 K/uL (130-400); RDW Coefficient of Variation 14.3 % (11.5-14.5); RDW Standard Deviation 52.6 fL (36.4-46.3); White Blood Count 29.57 K/ul (4.8-10.8)
[2024-12-10 21:42] LABS: Troponin I High Sensitivity 5188.4 pg/ml (0-14)
[2024-12-10 21:47] LABS: INR 1.1 (0.9-1.1); Partial Thromboplastin Ratio 1.3; Partial Thromboplastin Time 34 Seconds (21-31); Prothrombin Time 12.3 Seconds (9.0-12.0)
[2024-12-10] MEDS ORDERED: 0.2 MICRON FILTER SET 1 EACH IV ONE ×2 (21:50→22:31)
[2024-12-10] MEDS: CEFEPIME 2000MG 2,000 MG/20 ML SYR IV STA (21:56)
--- NOTE | 2024-12-10 22:06 | XRay Report ---
Exam(s): XR CXR 1 VIEW EXAM: XR Chest, 1 View CLINICAL HISTORY: Reason for exam: Dyspnea. TECHNIQUE: Frontal view of the chest. COMPARISON: 07/31/2024 FINDINGS: Lungs: Interstitial prominence favored to represent edema right greater than left. Atelectasis at the lung bases. Pleural space: No pleural effusion. No pneumothorax. Heart: Unremarkable. No cardiomegaly. Tubes, lines and devices: Dialysis catheter terminates at the cavoatrial junction. Pacemaker leads in place. IMPRESSION: Interstitial prominence favored to represent edema right greater than left. Electronically signed by: Reynaldo Ferro MD 12/10/24 22:05 PM
[2024-12-10 22:24] LABS: Appearance Urine Turbid (Clear); Bacteria Urine Automated 4+ (None Seen); Bilirubin Urine Negative (Negative); Blood Urine Negative (Negative); Cast Urine Automated >20 /lpf (0-2); Color Urine Dark Yellow; Glucose Urine UA Negative (Negative); Hyaline Casts Urine Present /lpf (None Presnt); Ketones Urine Trace (Negative); Leukocyte Esterase Urine 2+ (Negative); Nitrite Urine Negative (Negative); Protein Urine Trace (Negative); RBC Urine Automated 0-2 /hpf (0-2); Specific Gravity Urine 1.025 (1.000-1.030); Urobilinogen Urine Negative (Negative)
[2024-12-10] MEDS: AMIODARONE / D5W 150 MG/100 ML BAG IV STA (22:31)
[2024-12-10] MEDS: Heparin IV Adult Wt-Based Low-Dose *NO* INITIAL Bolus Protocol IV STA (22:36)
[2024-12-10 22:37] LABS: Basophils # (auto) 0.08 K/uL (0.00-0.20); Basophils % (auto) 0.3 %; Eosinophils # (auto) 0.03 K/uL (0.00-0.50); Eosinophils % (auto) 0.1 %; Immature Granulocytes # (auto) 0.21 K/uL (0.01-0.20); Immature Granulocytes % (auto) 0.7 %; Lymphocytes # (auto) 12.81 K/uL (1.20-3.40); Lymphocytes % (auto) 43.3 %; Monocytes # (auto) 1.08 K/uL (0.11-0.59); Monocytes % (auto) 3.7 %; Neutrophils # (auto) 15.36 K/uL (1.40-6.50); Neutrophils % (auto) 51.9 %; Polychromasia 1+
[2024-12-10] MEDS: HEPARIN 25000 UNIT/500 ML D5W 25,000 UNITS/500 ML BAG IV SCH (22:37)
--- NOTE | 2024-12-10 22:37 | History & Physical Report ---
Date of Service December 10, 2024 Assessment & Plan (1) Elevated troponin: (2) Aspiration pneumonia: (3) Acute hypoxemic respiratory failure: (4) ESRD on dialysis: (5) Pulmonary edema: (6) UTI (urinary tract infection): (7) Transaminitis: (8) Hypotension: Plan Patient is an 83-year-old female with history of heart failure reduced ejection fraction (most recent EF 05/2420 to 25%), three-vessel disease, severe aortic stenosis, CKD on dialysis, A-fib on Eliquis s/p pacer. She came into the ED due to an unresponsive episode where she [facility] EMS found her to have oxygen levels in the 80s and started her on 4 L nasal cannula. Patient stated she had a fluttering in her chest and nausea prior to the episode. [employer] report showed sustained V. tach. EKG showed T wave inversions in inferior and anterior leads. Patient was found to have a troponin of 5188.4. She was started on heparin drip, amiodarone bolus and drip. Differential includes but not limited to ischemia vs troponin elevated 2/2 tachycardia. ED provider spoke with construction pit worker drop hammer mechanic and laboratory technical specialist, recommended heparin drip and eval in AM. Patient also found to have right sided diffuse PNA and pulmonary edema, consider aspiration with unresponsive event. Also, found to have transaminitis, suspect hepatic congestion. Patient missed dialysis 12/08. #elevated troponin differential includes but not limited to STEMI vs elevated 2/2 demand with tachycardia (v tach vs a fib) s/p cardiac cath 05/30/25 showed severe 3 vessel dz - LAD 90-100% occlusion, CX 90-100% occlusion, RCA 90-100% occlusion does have pacer in place 05/12/2024 due to history of sustained V. tach and flash pulmonary edema EKG showed new T wave inversions in inferior and Anterior leads since July 2024, concordant elevation V3-V6 Pacer report - sustained V tach s a fib with aberrancy Troponin 5188.4; 2 hr repeat ordered, trend Q6H electrolytes stable recent lipid panel 03/30/2024 - TG G118, T cholesterol 166, LDL 91, HDL 51 - holding atorvastatin 80 mg at bedtime with transaminitis no A1c on file Lipid panel and A1c with a.m. labs amiodarone bolus given in ED; amiodarone drip started on admission - hold oral amiodarone consult cardiology NPO after midnight as may require cardiac cath dobutamine stress echocardiogram ordered EKG with chest pain PRN continue isosorbide mononitrate and metoprolol with holding precautions monitor on tele #Right sided multilobular aspiration PNA/hypoxia suspect aspiration s/p unresponsive event 12/10 EMS noted patient's oxygen levels to be in 80s -> 4L NC -> 2L NC at time of admission CXR showing interstitial prominence favored to represent edema right greater than left, personal interpretation of diffuse right-sided multilobular pneumonia with edema BioFire negative significant leukocytosis with WBC 29.5 (baseline trends between 15-20, history of chronic leukemia) sputum cultures ordered incentive spirometry Tessalon Perles and Tylenol as needed oxygen prn for O2 <94%, wean as tolerated given cefepime and clindamycin in ED, transition to levofloxacin - Anaphylaxis with penicillins MRSA swab ordered, will add coverage of positive aspiration precautions trend CBC #ESRD on dialysis/ pulmonary edema history of end-stage renal disease on dialysis MWF, missed dialysis 12/08 Suspect now pulmonary edema and hepatic congestion 2/2 missing dialysis CXR showing interstitial prominence favored to represent edema right greater than left, personal interpretation of diffuse right-sided multilobular pneumonia with edema creatinine 4.19 on admission (baseline 2.9-3.3), BUN 56 electrolytes stable on admission UA showed trace protein considered Lasix 40 IV; however defer on admission given pressure 102/64, dialysis in am may improve consult nephrology - plan for dialysis 12/11 trend CMP and magnesium of note patient had fistula procedure 12/07, surrounding erythema and warmth, Dopplers negative for acute changes #UTI asymptomatic UA turbid, trace protein, trace ketones, 2+ leukocyte esterase, 6-10 WBC, hyaline casts, 6-10 epithelial cells, 4+ bacteria History of pansensitive Klebsiella pneumoniae and E. coli Will be covered with levofloxacin for pneumonia above Follow urine cultures #transaminitis suspect hepatic congestion 2/2 missing dialysis does have mild transaminitis at baseline Total bili 0.8, AST 264, ALT 275, alk phos [address] ordered to further evaluate hold atorvastatin 80mg HS dialysis in AM, trend CMP consult GI #Hypotension BP 102/64 on admission defer IVF given above defer IV lasix continue isosorbide mononitrate and metoprolol with holding precautions Chronic stable diagnoses: A-fib holding Eliquis with heparin drip, s/p pacer, continue metoprolol Chronic leukemia white count 29.5 (baseline 15-20), Hgb 9.3, follow-up with PCP Severe aortic stenosis following cardiology for possible TAVR workup hypothyroidism - continue levothyroxine insomnia - continue melatonin prn anxiety - continue lorazepam and sertraline prn GERD - continue PPI VTE ppx: Heparin drip Diet: NPO after midnight Dispo: PCU Admission and Anticipated Discharge Date Admission Date: 12/10/24 History of Present Illness Chief Complaint: respiratory problems Primary Care Provider: Roddy Woodruff III, Patient is an 83-year-old female with history of heart failure reduced ejection fraction (most recent EF 05/2420 to 25%), three-vessel disease, severe aortic stenosis, CKD on dialysis, A-fib on Eliquis s/p pacer. She came into the ED due to an unresponsive episode where she was [facility] breathing [facility]. EMS found her to have oxygen levels in the 80s and started her on 4 L nasal cannula. Patient stated she had a fluttering in her chest and nausea prior to the episode. Medtronic report showed sustained V. tach. EKG showed T wave inversions in inferior and anterior leads. Patient was found to have a troponin of 5188.4. She was started on heparin drip, amiodarone bolus and drip. Differential includes but not limited to ischemia vs troponin elevated 2/2 tachycardia. ED provider spoke with construction pit worker drop hammer mechanic and laboratory technical specialist, recommended heparin drip and eval in AM. Patient also found to have right sided diffuse PNA and pulmonary edema, consider aspiration with unresponsive event. Also, found to have transaminitis, suspect hepatic congestion. Of note, EMS stated patient missed dialysis 12/08, patient denies. Patient seen at bedside. She is alert and oriented x 4 however does appear somewhat confused. She stated she does remember the episode earlier however denies any chest pain or shortness of breath prior to. She denies any cough. She stated she feels well right now, other than mild nausea. Patient denies dizziness, lightheadedness, cough, sputum production, dyspnea, dyspnea on exertion, chest pain, abdominal pain, vomiting, diarrhea, constipation, dysuria, hematuria. She had a fistula placed , has been red and swollen since his procedure. She denies nicotine or alcohol use. She resides at [facility]. She stated she does have a history of chronic leukemia, has a chronically elevated white blood cell count. She stated she did not get her morning m edications today. She wishes to be full code. She does not use oxygen at baseline. she stated her family knows that she is here. Patient does still make urine. Provider stated he spoke with [employer]ah employee relations representative who stated the pacer did show sustained V. tach however pacer did not to NSR given in the setting 130- 170. ER provider spoke with on-call drop hammer mechanic and Driller'S Assistant drop hammer mechanic who recommended no immediate intervention, start heparin drip and amiodarone bolus. Allergies Allergy/AdvReac Type Severity Reaction Status Date / Time bee venom protein (honey bee) Allergy Severe Anaphylaxis Verified 12/10/24 20:30 Penicillins Allergy Severe Rash, Verified 12/10/24 20:30 anaphylaxis Sulfa (Sulfonamide Allergy Severe Rash, Verified 12/10/24 20:30 Antibiotics) anaphylaxis pseudoephedrine Allergy Unknown Unknown, Verified 12/10/24 20:30 on file w/ [facility] amlodipine AdvReac Intermediate Palpitation/Headache, Verified 12/10/24 20:30 on file w/ [facility] Home Medications Medication Instructions Recorded Confirmed Type atorvastatin 80 mg tablet (Lipitor) 80 mg PO HS #90 tabs 08/25/23 12/10/24 Rx lancets 31 gauge (Comfort Touch #100 ea 08/25/23 10/05/24 Rx Ultra Thin Lancets) nitroglycerin 0.4 mg sublingual 0.4 mg sublingual UD PRN Chest 08/25/23 12/10/24 Rx tablet (Nitrostat) Pain #25 tabs blood sugar diagnostic (OneTouch #100 ea 09/01/23 10/05/24 Rx Verio test strips) apixaban 2.5 mg tablet (Eliquis) 2.5 mg PO BID #60 tabs 05/24/24 12/10/24 Rx acetaminophen 500 mg tablet 1,000 mg PO Q8H PRN Fever Or Pain 05/25/24 12/10/24 History (Tylenol Extra Strength) albuterol sulfate 90 mcg/actuation 2 puff inhalation Q4H PRN SOB 05/25/24 12/10/24 History aerosol inhaler amiodarone 200 mg tablet 200 mg PO BID 05/25/24 12/10/24 History clopidogrel 75 mg tablet 75 mg PO HS 05/25/24 12/10/24 History metoprolol succinate 25 mg 25 mg PO BID 05/25/24 12/10/24 History tablet,extended release 24 hr cholecalciferol (vitamin D3) 50 2,000 unit PO HS #90 tabs 06/06/24 12/10/24 Rx mcg (2,000 unit) tablet isosorbide mononitrate 30 mg 30 mg PO HS 06/29/24 12/10/24 History tablet,extended release 24 hr lorazepam 0.5 mg tablet 0.5 mg PO BID 06/29/24 12/10/24 History melatonin 5 mg capsule 5 mg PO HS insomnia 06/29/24 12/10/24 History docusate sodium 100 mg tablet 200 mg PO HS 07/27/24 12/10/24 History omeprazole 20 mg tablet,delayed 20 mg PO HS 07/27/24 12/10/24 History release bisacodyl 10 mg rectal suppository 10 mg [place] DAILY PRN Constipation 07/29/24 12/10/24 History (Dulcolax (bisacodyl)) fluticasone propionate 50 2 spray intranasal 3XWK 07/29/24 12/10/24 History mcg/actuation nasal spray,suspension sodium phosphates 19 gram-7 118 ml [place] DAILY PRN Constipation 07/29/24 12/10/24 History gram/118 mL enema (Fleet Enema) levothyroxine 50 mcg capsule 50 mcg PO .QPM@2100 10/05/24 12/10/24 History acetaminophen 325 mg tablet 650 mg PO 3XWK 11/28/24 12/10/24 History sennosides 8.6 mg tablet (Senokot) 8.6 mg PO QPM 11/28/24 12/10/24 History sertraline 100 mg tablet (Zoloft) 100 mg PO HS 11/28/24 12/10/24 History oxycodone-acetaminophen 5 mg-325 1 tab PO Q6H PRN pain #20 tabs 12/07/24 12/10/24 Rx mg tablet (Percocet) acetaminophen 325 mg tablet 650 mg PO 4XWK 12/10/24 12/10/24 History (Tylenol) aluminum-mag hydroxide-simethicone 30 ml PO Q6H PRN Indigestion 12/10/24 12/10/24 History 400 mg-400 mg-40 mg/5 mL oral susp (Maalox Maximum Strength) cyanocobalamin (vitamin B-12) 1,000 mcg PO HS 12/10/24 12/10/24 History 1,000 mcg tablet (Vitamin B-12) fluticasone propionate 50 2 spray intranasal 4XWK 12/10/24 12/10/24 History mcg/actuation nasal spray,suspension folic acid 1 mg tablet 1 mg PO HS 12/10/24 12/10/24 History promethazine 25 mg tablet 25 mg PO Q6H PRN NAUSEA/VOMITING 12/10/24 12/10/24 History protein supplement 1 ea PO 4XWK 12/10/24 12/10/24 History spironolactone 25 mg tablet 25 mg PO HS 12/10/24 12/10/24 History Past Med/Surg History Problem List (Updated 12/10/24 @ 23:58 by Tierra Nguyen PA-C) Hypotension Transaminitis UTI (urinary tract infection) Pulmonary edema recurrent flash Aspiration pneumonia RLL pneumonia (Acute) Tachycardia (Acute) Elevated troponin (Acute) Acute hypoxemic respiratory failure (Acute) S/P vascular surgery Encounter for pre-operative examination Complications, dialysis, catheter, mechanical ESRD on dialysis (Acute) Leukocytosis (Acute) Elevated troponin I level (Acute) 07/2024- consistent with myocardial demand ischemia from hypoxia and underlying CAD, no evidence of ACS per discharge summary Hypoxia (Acute) Anemia ICD (implantable cardioverter-defibrillator) in place Paroxysmal ventricular tachycardia S/P coronary artery stent placement Aortic stenosis HFrEF (heart failure with reduced ejection fraction) Weakness (Acute) PND (post-nasal drip) DNS (deviated nasal septum) Otalgia of both ears Toxic encephalopathy Radicular low back pain Chronic cough Compression fracture L2 (chronic) Left ventricular dysfunction CAD (coronary artery disease) Anxiety Spinal stenosis Dyslipidemia (Chronic) GERD (gastroesophageal reflux disease) (Chronic) Medical History Chronic respiratory failure on continuous O2 per records Mitral regurgitation Moderate to severe MR per 05/2024 ECHO Chronic combined systolic and diastolic CHF (congestive heart failure) EF 20-24% per 05/2024 ECHO Near euvolemic per 10/05/24 HF Clinic visit Ischemic cardiomyopathy EF 20-24% with anterior wall abnormality - s/p ICD placement Chronic anemia Cardiorenal syndrome with renal failure end stage Adult failure to thrive CLL (chronic lymphocytic leukemia) Under observation Sepsis due to pneumonia 07/2024 per records possible per [facility] readmission list ESRD on dialysis M/W/F at [facility] History of placement of internal cardiac defibrillator 05/12/24 Paroxysmal ventricular tachycardia non-sustained 3-vessel CAD - 05/2024 cath- LAD 90-100% stenosis, Cx 90-100% stenosis, RCA 100% stenosis (medical management- no anginal symptoms per 10/05/24 HF clinic visit) - 2019- cath showed mid LAD 99% stenosis, D1 99% stenosis, ostial LCx 99% stenosis, subtotaled pRCA- transferred to [facility]- was not a candidate for bypass- and underwent PCI - Anteroapical [place] 2010 per cardio records Pulmonary edema recurrent flash Severe aortic stenosis deemed not surgical candidate for TAVR at [facility] 05/2024 Severe aortic stenosis suspected per 05/2024 ECHO DJD (degenerative joint disease), multiple sites 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 care home 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 Depression Hypertension Seasonal allergies Cerebral artery occlusion DM2 (diabetes mellitus, type 2) Nausea and vomiting after administration of anesthetic agent Osteoarthritis On anticoagulant therapy Hearing deficit Stroke x3 Hyperlipidemia Atrial fibrillation on Eliquis Myocardial Infarction 2010 & 2019 (cath w/1 stent) Asthma Surgical History S/P dialysis catheter insertion 05/2024 and exchange 10/2024, [facility] AICD (automatic cardioverter/defibrillator) present placed 05/12/24 Hx of cardiac cath 06/19/19, [facility] 05/30/2024, [facility] Hx of cataract surgery B/L H/O heart artery stent HX [place] , STENT X1 2019 History of phacoemulsification of cataract of both eyes with intraocular lens implantation History of dilatation and curettage x3 History of total left knee replacement (TKR) History of right breast biopsy x3--benign History of laparoscopy History of bilateral breast reduction surgery History of colonoscopy Family History Mother Family history of diabetes mellitus Myocardial infarction Family/Other Family history of diabetes mellitus cousin Aunt Breast cancer Father Myocardial infarction Stroke Other No family history of adverse response to anesthesia Denies family history of Ovarian cancer Prostate cancer Colorectal cancer Uterine cancer Social History Smoking Status: Former smoker Tobacco Type: Cigarettes Age Started Using Tobacco: 53; Age Quit Using Tobacco: 62; Cigarettes Per Day: HX OCCASSIONAL CIGARETTE 15 YRS AGO; Preferred Language: Lao Communication Ability: Unknown Visual Impairment: No Limitations Hearing Ability: Use of Hearing Aid Plater Helper Required: No Beliefs That Will Affect Care: None marital status: / Current Living Situation: Senior Living Current Living Situation Comment: [facility] current occupational status: retired current occupation: worked for [employer] Feels Safe at Home: Yes Childhood Exposure to Second-Hand Smoke: Yes Diet: low salt Diet Comment: low sodium Dental Care, Regularly: Yes Physical Activity Frequency: Does not Exercise Seatbelt Use: always Sunscreen Use: No Assistive Devices: Oxygen - Continuous Review of Systems Review of Systems: see HPI Physical Exam Physical Exam: The patient is sleepy, oriented x4 however mildly confused. Pale, sickly appearing. HEENT- EOMI, mucous membranes dry. [place]. Heart-normal S1 and S2. No murmurs, rubs or gallops. Lungs-decreased bilaterally, no respiratory distress, no accessory muscle use. 2L NC. Abdomen-normal bowel sounds and soft. No ascites noted. Non-tender. Extremities- RUE surgical site with surround erythema and warmth. Results & Data Results & Data Vital Signs (Past 12 Hours) Vital Signs Temp Pulse Pulse Resp BP BP Pulse Ox 12/10/24 22:31 61 22 102/64 94 12/10/24 21:44 65 21 124/53 L 94 12/10/24 19:44 87 L 12/10/24 19:40 68 20 95 12/10/24 19:23 74 12/10/24 19:12 37.1 C 74 14 96/55 L 87 L O2 Del Method O2 Flow Rate 12/10/24 22:31 Nasal Cannula 2 12/10/24 21:44 Nasal Cannula 2 12/10/24 19:44 Room Air 0 12/10/24 19:40 Nasal Cannula 2 12/10/24 19:23 12/10/24 19:12 Room Air Code Status & VTE Plan Code Status full VTE Prophylaxis Plan VTE Prophylaxis will be ordered: Yes Supervising Physician Co-Signing Physician Notes Attending addendum: I have physically seen this patient, have supervised the ROYAL's activities, and agree with the H&P unless as otherwise noted. Assessment and Plan: The patient is an 83-year-old female with a past medical history including HFrEF, with most recent echocardiogram on 06/06/2020, with ejection fraction 25%, three-vessel CAD/severe aortic stenosis/ESRD on HD, A-fib on Eliquis, status post pacer. The patient reports she had a fluttering in her chest earlier this evening, accompanied by nausea, and then had an unresponsive episode where she was found not breathing at [facility]. EMS found her to have oxygen levels in the 80s, and she was started on 4 L nasal cannula oxygen. Patient was brought to the emergency department. [employer] report of AICD revealed episodes of V. tach. EKG showed abnormalities across the anterior and inferior chest leads, which cardiology was consulted on by the ED, and advice was to start heparin drip, and may likely need cardiac catheterization in the a.m.. The patient was then referred for evaluation for admission to [facility] #Episodes of ventricular tachycardia noted on Medtronic pacer report/abnormal EKG- Continue heparin drip begun in the ED Patient did receive amiodarone 150 mg IV bolus, and will have the addition of amiodarone continuous infusion, with holding oral amiodarone at this time Consult cardiology, who will see patient in the a.m. The patient will be admitted to telemetry for serial cardiac enzymes, serial EKG's, cardiac rhythm monitoring and a 2-D echocardiogram with Dopplers. Initial troponin 5188.4, with follow-up 5723.6 Abnormal LFTs- AST 264, ALT 275, alkaline phosphatase 125 Likely hepatic congestion secondary to HFrEF exacerbation- Will give furosemide 40 mg IV this evening, however, will likely require dialysis in the a.m. Order CT scan of abdomen and pelvis ESRD on HD- Patient reports that she did not go to dialysis 2 days ago, due to low blood pressure. Consult nephrology Urinary tract infection- Follow urine culture and sensitivity Chronic stable medical conditions: Atrial fibrillation/hypertension/severe aortic stenosis- Holding Eliquis while on heparin drip, undergoing TAVR workup at this time Hypothyroidism-continue levothyroxine Anxiety-continue lorazepam and sertraline GERD-continue pantoprazole Chronic leukemia follow serial laboratories [facility] Care Time/CCT Total # of Minutes Spent Total Time Spent with Patient: Total time spent is greater than 50% in coordination of care (as documented) at patient's floor/unit and/or counseling patient: Coding Level of Care Code 11306 INT INP/OBS CARE 3/75MIN Diagnoses Elevated troponin R79.89 Aspiration pneumonia J69.0 Acute hypoxemic respiratory failure J96.01 ESRD on dialysis N18.6; Z99.2 Pulmonary edema J81.1 UTI (urinary tract infection) N39.0 Transaminitis R74.01 Hypotension I95.9
[2024-12-10] MEDS: AMIODARONE / D5W 360 MG/200 ML BAG IV ONE (23:02)
--- NOTE | 2024-12-10 23:09 | Ultrasound Report ---
Exam(s): US VENOUS RIGHT UPPER EXTREMITY EXAM: US Duplex Right Upper Extremity Veins CLINICAL HISTORY: Reason for exam: swelling/pain; recent AVF placement. TECHNIQUE: Real-time duplex ultrasound scan of the right upper extremity veins integrating B-mode two-dimensional vascular structure, Doppler spectral analysis, color flow Doppler imaging and compression. COMPARISON: No relevant prior studies available. FINDINGS: The exam is limited. Deep veins: Unremarkable. No DVT in the internal jugular, subclavian, axillary, or brachial veins. The veins demonstrate normal color flow, are normally compressible, with normal phasic flow and/or augmentation response. Superficial veins: Unremarkable. No thrombus in the visualized basilic and cephalic veins. An AV fistula is noted. Soft tissues: There is soft tissue edema.. IMPRESSION: Limited exam. No ultrasound evidence of deep venous thrombosis in the right upper extremity.. Electronically signed by: Niko Hsu MD 12/10/24 23:08 PM
--- NOTE | 2024-12-10 23:18 | Ultrasound Report ---
Exam(s): US OTHER US hemodialysis fistula EXAM: Us Hemodialysis Fistula CLINICAL HISTORY: Reason for exam: eval for patency, recent placement. TECHNIQUE: Real-time ultrasound of a hemodialysis fistula with image documentation. COMPARISON: No relevant prior studies available. FINDINGS: A patent AV fistula is noted in the right upper arm. Proximal graft: 88 cm/s Anastomotic site: 342 cm/s Brachial artery distal to anastomosis: 289 cm/s There is soft tissue edema. IMPRESSION: A patent AV fistula is noted in the right upper arm. Electronically signed by: Niko Hsu MD 12/10/24 23:16 PM
--- NOTE | 2024-12-11 01:26 | CT Scan Report ---
EXAM: CT abd pelvis wo con CLINICAL HISTORY: transaminitis, eval liver/gallbladder TECHNIQUE: Contiguous axial images were obtained from the level of the diaphragm to the pubic symphysis without intravenous or oral contrast. Coronal and sagittal reconstructions were likewise performed and indicated to increase the sensitivity for detecting clinically relevant pathology. CT scan was performed according to ALARA (as low as reasonable achievable). COMPARISON: 12 february 2024 FINDINGS: The visualized lung bases show bilateral mild pleural effusion with subsegmental consolidation of right lower lobe Evaluation of the abdominal and pelvic visceral organs is limited without intravenous contrast. The unenhanced liver, spleen, pancreas, and adrenal glands are grossly unremarkable. The gallbladder is overdistended with sludge. The kidneys are reduced in size and parenchymal thickness. There is no hydronephrosis or perinephric stranding. The ureters are normal in caliber. No adenopathy or fluid collections are seen. No evidence of focal or diffuse bowel wall thickening or evidence of bowel obstruction is seen. The appendix is visualized in the right lower quadrant and appears within normal limits. The aorta is normal in caliber. The urinary bladder is normal in contour. Calcified uterine fibroids noted No aggressive appearing osseous lesions are identified. Marked degeneraitve changes in spine IMPRESSION: 1. Gallbladder is overdistended with sludge advise USG: stable 2. Calcified uterine fibroids stable 3. Marked degeneraitve changes in spine: stable 4. Chronic renal parenchymal disease 5. Bilateral mild pleural effusion with subsegmental consolidation of right lower lobe: advise CT chest: new finding Electronically signed by Ever Pop 12-11-2024 01:26 AM
[2024-12-11] MEDS ORDERED: ALBUTEROL HFA 8 GM INHALER INH PRN (02:35)
[2024-12-11] MEDS ORDERED: ALUMINUM/MAGNESIUM/SIMETH (MAALOX MAX) 30 ML UDC PO PRN (02:35)
[2024-12-11] MEDS: levoFLOXacin/D5W 750 MG/150 ML BAG IV ONE (03:21)
[2024-12-11] MEDS: AMIODARONE / D5W 360 MG/200 ML BAG IV SCH (04:39)
[2024-12-11 05:15] LABS: Hematocrit (blood only) 27.9 % (37.0-47.0); Hemoglobin 9.3 g/dl (12.0-16.0); Mean Corpuscular Hemoglobin 33.7 pg (25.0-34.0); Mean Corpuscular Hgb Conc 33.3 g/dL (32.0-36.0); Mean Corpuscular Volume 101.1 fL (80.0-100.0); Platelet Count 202 K/uL (130-400); RDW Coefficient of Variation 14.3 % (11.5-14.5); RDW Standard Deviation 52.4 fL (36.4-46.3); Red Blood Count 2.76 M/uL (4.20-5.40); White Blood Count 24.64 K/ul (4.8-10.8)
[2024-12-11 05:33] LABS: Albumin Globulin Ratio 1.2 (0.9-2); Albumin Level 3.5 gm/dl (3.4-5.0); BUN Creatinine Ratio 13.9 (10-20); Bilirubin,Total 0.8 mg/dl (0.2-1.0); Chol HDL Ratio 2.7 (0-5); Creatinine Clr Calc Pharmacy 10.3 ml/min; Globulin 2.9 gm/dl (2.5-4.0); Potassium 4.7 mmol/L (3.5-5.1); Total Protein 6.4 gm/dl (6.0-8.3)
[2024-12-11 05:42] LABS: Basophils # (auto) 0.08 K/uL (0.00-0.20); Basophils % (auto) 0.3 %; Eosinophils # (auto) 0.11 K/uL (0.00-0.50); Eosinophils % (auto) 0.4 %; Immature Granulocytes # (auto) 0.13 K/uL (0.01-0.20); Immature Granulocytes % (auto) 0.5 %; Lymphocytes # (auto) 11.06 K/uL (1.20-3.40); Lymphocytes % (auto) 44.9 %; Monocytes # (auto) 1.04 K/uL (0.11-0.59); Monocytes % (auto) 4.2 %; Neutrophils # (auto) 12.22 K/uL (1.40-6.50); Neutrophils % (auto) 49.7 %; Polychromasia 1+
[2024-12-11 05:48] LABS: Troponin I High Sensitivity 5888.2 pg/ml (0-14)
[2024-12-11 06:09] LABS: ANTI-Xa, UFH(UnfractionatedHep > 1.50 IU/ml (0.3-0.7)
--- NOTE | 2024-12-11 07:57 | Electrocardiogram Report ---
Test Reason : Blood Pressure : */* mmHG Vent. Rate : 69 BPM Atrial Rate : 69 BPM P-R Int : 266 ms QRS Dur : 146 ms QT Int : 486 ms P-R-T Axes : 62 48 -32 degrees QTcB Int : 520 ms Sinus rhythm with 1st degree A-V block Incomplete left bundle block Acute septal infarction with ST elevation and reciprocal lateral (I, AVL) depression Inferior infarct (cited on or before 29-Jul-2024) Abnormal ECG When compared with ECG of 29-Jul-2024 09:11, There is evidence for acute STEMI Confirmed by Kaylie Morales ([id number]) on 12/11/2024 7:56:43 AM Referred By: REFERRED SELF Confirmed By: Kaylie Moralse
[2024-12-11 08:25] LABS: ANTI-Xa, UFH(UnfractionatedHep 1.44 IU/ml (0.3-0.7)
--- NOTE | 2024-12-11 08:47 | Hospitalist Progress Note ---
Date of Service December 11, 2024 Assessment & Plan (1) Elevated troponin: (2) Aspiration pneumonia: (3) Acute hypoxemic respiratory failure: (4) ESRD on dialysis: (5) Pulmonary edema: (6) UTI (urinary tract infection): (7) Transaminitis: (8) Hypotension: Plan Patient is an 83-year-old female with history of heart failure reduced ejection fraction (most recent EF 05/2420 to 25%), three-vessel disease, severe aortic stenosis, CKD on dialysis, A-fib on Eliquis s/p pacer. She came into the ED due to an unresponsive episode where she was [facility] breathing [facility]. EMS found her to have oxygen levels in the 80s and started her on 4 L nasal cannula. Patient stated she had a fluttering in her chest and nausea prior to the episode. [employer] report showed sustained V. tach. EKG showed T wave inversions in inferior and anterior leads. Patient was found to have a troponin of 5188.4. She was started on heparin drip, amiodarone bolus and drip. Differential includes but not limited to ischemia vs troponin elevated 2/2 tachycardia. 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 Patient also found to have right sided diffuse PNA and pulmonary edema, consider aspiration with unresponsive event. Also, found to have transaminitis, suspect hepatic congestion. Patient missed dialysis 12/08. On review of cardiology findings do not feel to be consistent with ACS. Heparin GTT and amiodarone drip were discontinued. Patient is continued on treatment for lobar pneumonia possibly due to aspiration, follow-up of possible UTI with UCx pending, and receive dialysis 12/11/2024. Elevated Troponin, ?STEMI, CAD, hx VT, HFrEF, Severe , hx ICD - EKG on admit: ?V1/V2 ST elevations. Compared to prior V1 with increased elevation, V2 elevation new. - DDx included STEMI vs Demand vs clearance with hx ESRD. Subsequently thought ot be 2/2 demand +/- clearance - s/p cath 05/30/25 --> severe 3 vessel disease. LAD 90-100% occlusion, CX 90- 100% occlusion, RCA 90-100% occlusion - s/p [employer] [place] XT ICD/pacer 05/12/24 due to hx VT + flash pulm edema - Interrogation: VT + afib w/ aberrancy - Atorvastatin held for transaminitis. DDx of this includes perfusion/shock liver -LDL 77, total cholesterol 149. A1c 6.1% - Amio 150mg bolus + gtt and heparin GTT were initially started, these have been discontinued - Cardiology consulted. On review suspect that EKG changes are likely from LV aneurysm. She is chest pain-free and catheterization is not recommended at this time. No role for DSE as she has already known three-vessel disease. . Recommended discontinuing heparin as no evidence of ACS, discontinuing amiodarone and no evidence of sustained V. tach. ICD remains in place. Appreciate recommendations - Continue isosorbide, MTP w/ hold parameters R Multilobal PNA, ?aspiration - Unresponsive event 12/08 associated with NS VT on interrogation. Suspected aspiration event during. - CXR: R>L opacities. DDx includes CHF, multilobal PNA - WBC elevated consistent with PNA - Sputum pending - IC, Flutter - SpO2 goal >94% - Cefepime/Clinda --> levofloxacin after admit. - Continue levofloxacin. Pt is w/ anaphylactic penicillin allergy - MRSA nare negative ESRD-HD MWF - Missed dialysis 12/08 - Pt with +pulmonary edema/congestion, potassium upper normal @ - Cr elevated on admission consistent with ESRD dependence and missed HD. BUN 56 - Non-anuric. Lasix deferred on admission due to borderline hypotension and anticipated HD - Nephrology consulted for HD - Had fistula placement 12/07 R Arm. No surrounding eyrthema and warmth, +krystian in place with no dehiscence at prox or distal incision. Dopplers negative for occlusion. Pt is on abx as noted above for PNA. No purulence/discharge/fluctuance on exam Patient taken to dialysis 12/11 UTI vs Asymptomatic Bacterutia - UA trace protein, trace ketones, 2+ leukocyte esterase, 6-10 WBC, hyaline casts, 6-10 epithelial cells, 4+ bacteria - History of pansensitive Klebsiella pneumoniae and E. coli -Levaquin continued - UC pending Transaminitis - Suspect hepatic congestion/shock liver 2/2 perfusion in the setting of both missed dialysis, PNA, and VT episodes - Trend daily - CT-A/P: 1. Gallbladder is overdistended with sludge advise USG: stable 2. Calcified uterine fibroids stable 3. Marked degeneraitve changes in spine: stable 4. Chronic renal parenchymal disease 5. Bilateral mild pleural effusion with subsegmental consolidation of right lower lobe: advise CT chest: new finding - Clinically w/o murphys. RUQ US pending. She is on levaquin - Statin Held Borderline Hypotension - DDx includes CHF/HFrEf, acute PNA/impaired SVR -continue isosorbide mononitrate and metoprolol with holding precautions Chronic stable diagnoses: A-fib Continue mtp. Heparin gtt d/hermelinda, DOAC resumed Chronic leukemia white count 29.5 (baseline 15-20), Hgb 9.3, follow-up with PCP. hypothyroidism - continue levothyroxine insomnia - continue melatonin prn anxiety - continue lorazepam and sertraline prn GERD - continue PPI VTE ppx: Heparin drip --> switched back to DOAC Diet: Renal, HH Dispo: PCU Admission and Anticipated Discharge Date Admission Date: December 10, 2024 Subjective Seen at the bedside. She denies chest pain, chest pressure, shortness of breath. She does endorse some chronic pain in her left shoulder. She reports she is not feeling short of breath currently. She reports she is still not remember the episode where she passed out. Denies chest pain or chest pressure.. She reports she is a little short of breath with exertion, does not feel short of breath while laying in bed but has had a persistent cough and has been coughing up some thick brownish colored sputum for the last few days. Denies night sweats and chills Physical Exam Physical Exam: General: A&Ox3. NAD. Cooperative. Nontoxic but fatigued appearing HEENT: Atraumatic, normocephalic. Vision and hearing grossly intact Pulm: Diminished coarse in the bases right greater than left. No overt rales. Symmetrical chest rise. No increase in work of breathing. No respiratory distress. Cardiac: Regular, mildly bradycardic with chronotropic response. Radial pulses intact and symmetrical. Abdominal: Nontender, nondistended, soft. BS present. Skin/extremities: Right arm recent fistula creation site with surgical incision C/D/I. No overlying warmth or tenderness. Krystian in place at both proximal and distal site. No evidence of dehiscence. Soft minimal thrill is appreciated on palpation. Right HD catheter is in place. No overlying warmth, tenderness. No surrounding erythema or discharge. Results & Data Results & Data Vital Signs (Past 12 Hours) Vital Signs Temp Pulse Pulse Resp BP BP Pulse Ox 12/11/24 08:08 36.9 C 60 18 110/53 L 98 12/11/24 07:44 60 12/11/24 03:56 12/11/24 03:56 36.5 C 62 21 96/55 L 92 12/11/24 02:35 36.5 C 62 21 96/55 L 92 12/11/24 02:35 12/11/24 00:30 65 18 118/75 92 12/11/24 00:30 60 21 111/74 95 12/11/24 00:09 61 24 117/65 94 12/10/24 23:30 60 22 108/59 L 95 12/10/24 23:15 60 12/10/24 23:00 60 22 109/54 L 96 12/10/24 22:31 61 22 102/64 94 12/10/24 21:44 65 21 124/53 L 94 Pulse Ox O2 Del Method O2 Del Method O2 Flow Rate O2 Flow Rate 12/11/24 08:08 Nasal Cannula 2 12/11/24 07:44 12/11/24 03:56 Nasal Cannula 2 12/11/24 03:56 Nasal Cannula 2 12/11/24 02:35 Nasal Cannula 2 12/11/24 02:35 92 Nasal Cannula 2 12/11/24 00:30 Nasal Cannula 2 12/11/24 00:30 Nasal Cannula 2 12/11/24 00:09 Nasal Cannula 2 12/10/24 23:30 Nasal Cannula 2 12/10/24 23:15 12/10/24 23:00 Nasal Cannula 2 12/10/24 22:31 Nasal Cannula 2 12/10/24 21:44 Nasal Cannula 2 PG Care Time/CCT Total # of Minutes Spent Total Time Spent with Patient: Total time spent is greater than 50% in coordination of care (as documented) at patient's floor/unit and/or counseling patient: Coding Level of Care Code 48087 SUB INP/OBS CARE 3/50MIN Diagnoses Elevated troponin R79.89 Aspiration pneumonia J69.0 Acute hypoxemic respiratory failure J96.01 ESRD on dialysis N18.6; Z99.2 Pulmonary edema J81.1 UTI (urinary tract infection) N39.0 Transaminitis R74.01 Hypotension I95.9
[2024-12-11 08:57] LABS: Estimated Average Glucose 128 mg/dl; Hemoglobin A1C 6.1 % (4.5-5.6)
--- NOTE | 2024-12-11 10:05 | Cardiology Consultation ---
Date of Consultation December 11, 2024 Assessment & Plan (1) Demand ischemia: (2) 3-vessel CAD: (3) Ischemic cardiomyopathy: (4) ICD (implantable cardioverter-defibrillator) in place: (5) Nonsustained ventricular tachycardia: (6) Severe aortic stenosis: (7) Moderate to severe mitral regurgitation: (8) ESRD on dialysis: Plan 79-year-old woman with complex cardiac history and multiple current comorbidities admitted after an episode of unexplained unresponsiveness at [facility]. Pacemaker interrogation showed only nonsustained ventricular tachycardia, which is commonplace in the setting of ischemic cardiomyopathy and unlikely to have caused prolonged syncope with hypoxemia. Troponin elevation would be fully expected in the context of triple-vessel coronary artery disease/ischemic cardiomyopathy and patient facing physiologic stress. ECG findings are nonspecific given the presence of a left ventricular apical aneurysm resulting in chronic ST elevation. Absence of peak indicating troponin curve, absence of chest pain, and benign appearance of the patient this morning way against acute coronary syndrome. As noted, clinical course and telemetry were benign overnight. Recommend discontinuing amiodarone as there is no evidence of sustained ventricular tachycardia, also she does have a defibrillator should she have any sustained dysrhythmias. Recommend discontinuing heparin as there is no evidence of acute coronary syndrome. No need for stress study as she has known triple-vessel coronary artery disease (therefore the study would undoubtedly be abnormal), no need for repeat cardiac catheterization given recent study and absence of current evidence for acute coronary syndrome. Resume diet. Proceed to dialysis, chest x-ray is unimpressive to me and the patient is lying flat in has no clinical heart failure, but she does appear hypervolemic and will benefit from volume unloading. Continue telemetry, as etiology of her syncopal episode remains uncertain. Will continue to follow from a cardiology standpoint, the patient sees Dr. Robison regularly and he plans to visit her tomorrow. History of Present Illness Reason for Consultation: elevated trop - STEMI vs tachycardia Requesting Physician: Natalio Del Valle MD Attending Physician: Natalio Del Valle MD History of Present Illness 79-year-old woman with end-stage renal disease (on hemodialysis), severe ischemic cardiomyopathy (EF 20-24%) with LV apical aneurysm, triple-vessel coronary artery disease, significant valvular disease (severe /moderate to severe MR/severe pulmonary hypertension), permanent atrial fibrillation (apixaban/metoprolol), and dual-chamber pacemaker who was admitted yesterday after an episode of unresponsiveness with hypoxemia. Patient reportedly felt tachypalpitations and nausea before the episode of unresponsiveness, she denies chest pain at any time. She was placed on amiodarone and heparin due to concerns regarding dysrhythmia and potential acute coronary syndrome, she had an uneventful night with only electronically paced rhythm and no dysrhythmias, no chest pain, and no evidence of heart failure. Cardiac data: [employer] pacemaker interrogation showed only 1 episode of nonsustained ventricular tachycardia, no device activations. Troponin x 3 in the [id number] range with flat profile. ECG showed sinus rhythm at 69 bpm with incomplete left bundle branch block and ST elevation in the anterior leads, compared to 07/29/2024 ECG there was some increase in pre-existing anterior ST elevation (likely due to LV aneurysm), but no significant change. Echocardiogram May 2024 showed EF 20 to 24% with diffuse hypokinesis to dyskinesis with a moderate size apical aneurysm, probably severe , moderate to severe MR, severe pulmonary hypertension. Cardiac catheterization May 2024 at [facility] showed occluded mid LAD, occluded distal circumflex, occluded mid RCA, severe branch vessel disease. She had no somatic complaints at the time my evaluation this morning. Allergies Allergy/AdvReac Type Severity Reaction Status Date / Time bee venom protein (honey bee) Allergy Severe Anaphylaxis Verified 12/10/24 20:30 Penicillins Allergy Severe Rash, Verified 12/10/24 20:30 anaphylaxis Sulfa (Sulfonamide Allergy Severe Rash, Verified 12/10/24 20:30 Antibiotics) anaphylaxis pseudoephedrine Allergy Unknown Unknown, Verified 12/10/24 20:30 on file w/ [facility] amlodipine AdvReac Intermediate Palpitation/Headache, Verified 12/10/24 20:30 on file w/ [facility] Home Medications Medication Instructions Recorded Confirmed Type atorvastatin 80 mg tablet (Lipitor) 80 mg PO HS #90 tabs 08/25/23 12/10/24 Rx lancets 31 gauge (Comfort Touch #100 ea 08/25/23 10/05/24 Rx Ultra Thin Lancets) nitroglycerin 0.4 mg sublingual 0.4 mg sublingual UD PRN Chest 08/25/23 12/10/24 Rx tablet (Nitrostat) Pain #25 tabs blood sugar diagnostic (OneTouch #100 ea 09/01/23 10/05/24 Rx Verio test strips) apixaban 2.5 mg tablet (Eliquis) 2.5 mg PO BID #60 tabs 05/24/24 12/10/24 Rx acetaminophen 500 mg tablet 1,000 mg PO Q8H PRN Fever Or Pain 05/25/24 12/10/24 History (Tylenol Extra Strength) albuterol sulfate 90 mcg/actuation 2 puff inhalation Q4H PRN SOB 05/25/24 12/10/24 History aerosol inhaler amiodarone 200 mg tablet 200 mg PO BID 05/25/24 12/10/24 History clopidogrel 75 mg tablet 75 mg PO HS 05/25/24 12/10/24 History metoprolol succinate 25 mg 25 mg PO BID 05/25/24 12/10/24 History tablet,extended release 24 hr cholecalciferol (vitamin D3) 50 2,000 unit PO HS #90 tabs 06/06/24 12/10/24 Rx mcg (2,000 unit) tablet isosorbide mononitrate 30 mg 30 mg PO HS 06/29/24 12/10/24 History tablet,extended release 24 hr lorazepam 0.5 mg tablet 0.5 mg PO BID 06/29/24 12/10/24 History melatonin 5 mg capsule 5 mg PO HS insomnia 06/29/24 12/10/24 History docusate sodium 100 mg tablet 200 mg PO HS 07/27/24 12/10/24 History omeprazole 20 mg tablet,delayed 20 mg PO HS 07/27/24 12/10/24 History release bisacodyl 10 mg rectal suppository 10 mg MA DAILY PRN Constipation 07/29/24 12/10/24 History (Dulcolax (bisacodyl)) fluticasone propionate 50 2 spray intranasal 3XWK 07/29/24 12/10/24 History mcg/actuation nasal spray,suspension sodium phosphates 19 gram-7 118 ml MA DAILY PRN Constipation 07/29/24 12/10/24 History gram/118 mL enema (Fleet Enema) levothyroxine 50 mcg capsule 50 mcg PO .QPM@2100 10/05/24 12/10/24 History acetaminophen 325 mg tablet 650 mg PO 3XWK 11/28/24 12/10/24 History sennosides 8.6 mg tablet (Senokot) 8.6 mg PO QPM 11/28/24 12/10/24 History sertraline 100 mg tablet (Zoloft) 100 mg PO HS 11/28/24 12/10/24 History oxycodone-acetaminophen 5 mg-325 1 tab PO Q6H PRN pain #20 tabs 12/07/24 12/10/24 Rx mg tablet (Percocet) acetaminophen 325 mg tablet 650 mg PO 4XWK 12/10/24 12/10/24 History (Tylenol) aluminum-mag hydroxide-simethicone 30 ml PO Q6H PRN Indigestion 12/10/24 12/10/24 History 400 mg-400 mg-40 mg/5 mL oral susp (Maalox Maximum Strength) cyanocobalamin (vitamin B-12) 1,000 mcg PO HS 12/10/24 12/10/24 History 1,000 mcg tablet (Vitamin B-12) fluticasone propionate 50 2 spray intranasal 4XWK 12/10/24 12/10/24 History mcg/actuation nasal spray,suspension folic acid 1 mg tablet 1 mg PO HS 12/10/24 12/10/24 History promethazine 25 mg tablet 25 mg PO Q6H PRN NAUSEA/VOMITING 12/10/24 12/10/24 History protein supplement 1 ea PO 4XWK 12/10/24 12/10/24 History spironolactone 25 mg tablet 25 mg PO HS 12/10/24 12/10/24 History Patient History Medical History Chronic respiratory failure on continuous O2 per records Mitral regurgitation Moderate to severe MR per 05/2024 ECHO Chronic combined systolic and diastolic CHF (congestive heart failure) EF 20-24% per 05/2024 ECHO Near euvolemic per 10/05/24 HF Clinic visit Ischemic cardiomyopathy EF 20-24% with anterior wall abnormality - s/p ICD placement Chronic anemia Cardiorenal syndrome with renal failure end stage Adult failure to thrive CLL (chronic lymphocytic leukemia) Under observation Sepsis due to pneumonia 07/2024 per records possible per [facility] readmission list ESRD on dialysis M/W/F at [facility] History of placement of internal cardiac defibrillator 05/12/24 Paroxysmal ventricular tachycardia non-sustained 3-vessel CAD - 05/2024 cath- LAD 90-100% stenosis, Cx 90-100% stenosis, RCA 100% stenosis (medical management- no anginal symptoms per 10/05/24 HF clinic visit) - 2019- cath showed mid LAD 99% stenosis, D1 99% stenosis, ostial LCx 99% stenosis, subtotaled pRCA- transferred to [place]- was not a candidate for bypass- and underwent PCI - Anteroapical NV 2010 per cardio records Severe aortic stenosis deemed not surgical candidate for TAVR at [facility] 05/2024 Severe aortic stenosis suspected per 05/2024 ECHO DJD (degenerative joint disease), multiple sites 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 Depression Hypertension Seasonal allergies Cerebral artery occlusion DM2 (diabetes mellitus, type 2) Nausea and vomiting after administration of anesthetic agent Osteoarthritis On anticoagulant therapy Hearing deficit Stroke x3 Hyperlipidemia Atrial fibrillation on Eliquis Myocardial Infarction 2010 & 2018 (cath w/1 stent) Asthma Surgical History S/P dialysis catheter insertion 05/2024 and exchange 10/2024, [facility] AICD (automatic cardioverter/defibrillator) present placed 05/12/24 Hx of cardiac cath 06/19/19, [facility] 05/30/2024, [facility] Hx of cataract surgery B/L H/O heart artery stent HX NV , STENT X1 2019 History of phacoemulsification of cataract of both eyes with intraocular lens implantation History of dilatation and curettage x3 History of total left knee replacement (TKR) History of right breast biopsy x3--benign History of laparoscopy History of bilateral breast reduction surgery History of colonoscopy Family History Mother Family history of diabetes mellitus Myocardial infarction Family/Other Family history of diabetes mellitus cousin Aunt Breast cancer Father Myocardial infarction Stroke Other No family history of adverse response to anesthesia Denies family history of Ovarian cancer Prostate cancer Colorectal cancer Uterine cancer Social History Smoking Status: Former smoker Tobacco Type: Cigarettes Age Started Using Tobacco: 53; Age Quit Using Tobacco: 62; Cigarettes Per Day: HX OCCASSIONAL CIGARETTE 15 YRS AGO; Hx Alcohol Use: Yes Alcohol type: wine Alcohol Intake Frequency: 2-4 x/Month Hx Substance Use: No Preferred Language: [place] Communication Ability: Unknown Visual Impairment: No Limitations Hearing Ability: Use of Hearing Aid Account Leader Required: No Beliefs That Will Affect Care: None marital status: / Current Living Situation: [facility] Current Living Situation Comment: [facility] current occupational status: retired current occupation: worked for [employer] Feels Safe at Home: Yes Safety Concerns: Feels Safe At This Time Childhood Exposure to Second-Hand Smoke: Yes Diet: low salt Diet Comment: low sodium Dental Care, Regularly: Yes Physical Activity Frequency: Does not Exercise Seatbelt Use: always Sunscreen Use: No Assistive Devices: Glasses, Hearing Aid - Bilateral, Walker and Wheelchair Physical Exam Physical Exam: Elderly white female lying comfortably. BP 110/53 mmHg. Pulse 60 bpm and regular (paced). Respirations 18 unlabored. Skin: no ecchymoses or generalized lesions. HEENT: unremarkable. Neck: JVP two thirds the way to the angle of the jaw at 90 degrees, carotids with bilateral transmitted murmur. Lungs: clear anteriorly. Cardiac: regular rhythm, and audible aortic closure sound, 3/6 crescendo/decrescendo systolic ejection murmur right upper sternal border rating widely, tearful 6 apical systolic murmur. No diastolic murmur. Abdomen: benign. Extremities: no edema, right upper extremity with intact AV fistula (recently placed, sutures clean and dry). Neurologic: normal affect and conversation, nonfocal. Results & Data Laboratory Results WBC 24.64, hemoglobin 9.3, normal platelet count. Sodium 131, potassium 4.7, BUN 60, creatinine 4.32. Magnesium 3.0. Troponin as per HPI. AST 295, ALT 315, alk phos 119. Cholesterol 149, LDL 77, HDL 56, ratio 2.7 Diagnostic Findings Chest x-ray read as "interstitial prominence", to my eye mildly increased vasculature but no effusions or overt heart failure. ECGs as noted in HPI. Venous Doppler right upper extremity with no DVT. CT abdomen/pelvis showed over distended gallbladder with sludge, bilateral mild pleural effusion with right lower lobe consolidation. PG Care Time/CCT Total # of Minutes Spent Total Time Spent with Patient: Total time spent is greater than 50% in coordination of care (as documented) at patient's floor/unit and/or counseling patient: Coding Level of Care Code 87751 IN/OBS CONSULT LVL 5,80M Diagnoses Demand ischemia I24.89 3-vessel CAD I25.10 Ischemic cardiomyopathy I25.5 ICD (implantable cardioverter-defibrillator) in place Z95.810 Nonsustained ventricular tachycardia I47.29 Severe aortic stenosis I35.0 Moderate to severe mitral regurgitation I34.0 ESRD on dialysis N18.6; Z99.2
--- NOTE | 2024-12-11 10:09 | Gastrointestinal Consultation ---
Date of Consultation December 11, 2024 Assessment & Plan (1) Transaminitis: Suspect that her transaminitis is secondary to her cardiac issues and recent events as she had normal transaminases back in July of 2024. - would continue to monitor LFTs and trend. Supervising Physician Co-Signing Physician Notes 83 year old female with history of heart failure with reduced ejection fraction (most recent EF reportedly 25%), three vessel disease, severe aortic stenosis, CKD on dialysis, A-fib on Eliquis s/p pacer. She came into the ED due to an unresponsive episode where [facility] found her to have oxygen levels in the 80s and started her on 4 L nasal cannula. Patient stated she had a fluttering in her chest and nausea prior to the episode. [employer] report showed sustained V. tach. EKG showed T wave inversions in inferior and anterior leads. Patient was found to have a troponin of 5188.4. She was started on heparin drip, amiodarone bolus and drip. LFTs are mildly elevated with AST and ALT in the 200s and they are starting to downtrend. CT and ultrasound showed normal bile duct size with an atrophic pancreas and a small sidebranch IPMN that is 1 cm or less. The gallbladder is thickened but there is no acute cholecystitis noted. Given her elevated troponin and her CAD with heart failure, I think her LFTs are secondary to mild congestion and a low flow state with known low EF and moderate leading to low flow and ischemic hepatitis. This will get better as are heart and condition improves. Supportive care for now. History of Present Illness Reason for Consultation: transaminitis, hepatic congestion Requesting Physician: Tierra GONZALES Attending Physician: Natalio Del Valle MD History of Present Illness Patient is an 83 year old female with history of heart failure with reduced ejection fraction (most recent EF reportedly 25%), three vessel disease, severe aortic stenosis, CKD on dialysis, A-fib on Eliquis s/p pacer. She came into the ED due to an unresponsive episode where she [facility] EMS found her to have oxygen levels in the 80s and started her on 4 L nasal cannula. Patient stated she had a fluttering in her chest and nausea prior to the episode. [employer] report showed sustained V. tach. EKG showed T wave inversions in inferior and anterior leads. Patient was found to have a tro ponin of 5188.4. She was started on heparin drip, amiodarone bolus and drip. Differential includes but not limited to ischemia vs troponin elevated seconday tachycardia. Patient also found to have right sided diffuse pneumonia and pulmonary edema, consider aspiration with unresponsive event. Also, found to have transaminitis, which was suspected to be due to hepatic congestion. She had a CT on this admission showing an unremarkable liver. GI ros are unremarkable. a remote history of alcohol use. 12/11/24 T bili 0.8, ast 293, ALT 315, ALK 119. 08/07/24 ALT/AST wnl. Allergies Allergy/AdvReac Type Severity Reaction Status Date / Time bee venom protein (honey bee) Allergy Severe Anaphylaxis Verified 12/10/24 20:30 Penicillins Allergy Severe Rash, Verified 12/10/24 20:30 anaphylaxis Sulfa (Sulfonamide Allergy Severe Rash, Verified 12/10/24 20:30 Antibiotics) anaphylaxis pseudoephedrine Allergy Unknown Unknown, Verified 12/10/24 20:30 on file w/ [facility] amlodipine AdvReac Intermediate Palpitation/Headache, Verified 12/10/24 20:30 on file w/ [facility] Home Medications Medication Instructions Recorded Confirmed Type atorvastatin 80 mg tablet (Lipitor) 80 mg PO HS #90 tabs 08/25/23 12/10/24 Rx lancets 31 gauge (Comfort Touch #100 ea 08/25/23 10/05/24 Rx Ultra Thin Lancets) nitroglycerin 0.4 mg sublingual 0.4 mg sublingual UD PRN Chest 08/25/23 12/10/24 Rx tablet (Nitrostat) Pain #25 tabs blood sugar diagnostic (OneTouch #100 ea 09/01/23 10/05/24 Rx Verio test strips) apixaban 2.5 mg tablet (Eliquis) 2.5 mg PO BID #60 tabs 05/24/24 12/10/24 Rx acetaminophen 500 mg tablet 1,000 mg PO Q8H PRN Fever Or Pain 05/25/24 12/10/24 History (Tylenol Extra Strength) albuterol sulfate 90 mcg/actuation 2 puff inhalation Q4H PRN SOB 05/25/24 12/10/24 History aerosol inhaler amiodarone 200 mg tablet 200 mg PO BID 05/25/24 12/10/24 History clopidogrel 75 mg tablet 75 mg PO HS 05/25/24 12/10/24 History metoprolol succinate 25 mg 25 mg PO BID 05/25/24 12/10/24 History tablet,extended release 24 hr cholecalciferol (vitamin D3) 50 2,000 unit PO HS #90 tabs 06/06/24 12/10/24 Rx mcg (2,000 unit) tablet isosorbide mononitrate 30 mg 30 mg PO HS 06/29/24 12/10/24 History tablet,extended release 24 hr lorazepam 0.5 mg tablet 0.5 mg PO BID 06/29/24 12/10/24 History melatonin 5 mg capsule 5 mg PO HS insomnia 06/29/24 12/10/24 History docusate sodium 100 mg tablet 200 mg PO HS 07/27/24 12/10/24 History omeprazole 20 mg tablet,delayed 20 mg PO HS 07/27/24 12/10/24 History release bisacodyl 10 mg rectal suppository 10 mg GA DAILY PRN Constipation 07/29/24 12/10/24 History (Dulcolax (bisacodyl)) fluticasone propionate 50 2 spray intranasal 3XWK 07/29/24 12/10/24 History mcg/actuation nasal spray,suspension sodium phosphates 19 gram-7 118 ml GA DAILY PRN Constipation 07/29/24 12/10/24 History gram/118 mL enema (Fleet Enema) levothyroxine 50 mcg capsule 50 mcg PO .QPM@2100 10/05/24 12/10/24 History acetaminophen 325 mg tablet 650 mg PO 3XWK 11/28/24 12/10/24 History sennosides 8.6 mg tablet (Senokot) 8.6 mg PO QPM 11/28/24 12/10/24 History sertraline 100 mg tablet (Zoloft) 100 mg PO HS 11/28/24 12/10/24 History oxycodone-acetaminophen 5 mg-325 1 tab PO Q6H PRN pain #20 tabs 12/07/24 12/10/24 Rx mg tablet (Percocet) acetaminophen 325 mg tablet 650 mg PO 4XWK 12/10/24 12/10/24 History (Tylenol) aluminum-mag hydroxide-simethicone 30 ml PO Q6H PRN Indigestion 12/10/24 12/10/24 History 400 mg-400 mg-40 mg/5 mL oral susp (Maalox Maximum Strength) cyanocobalamin (vitamin B-12) 1,000 mcg PO HS 12/10/24 12/10/24 History 1,000 mcg tablet (Vitamin B-12) fluticasone propionate 50 2 spray intranasal 4XWK 12/10/24 12/10/24 History mcg/actuation nasal spray,suspension folic acid 1 mg tablet 1 mg PO HS 12/10/24 12/10/24 History promethazine 25 mg tablet 25 mg PO Q6H PRN NAUSEA/VOMITING 12/10/24 12/10/24 History protein supplement 1 ea PO 4XWK 12/10/24 12/10/24 History spironolactone 25 mg tablet 25 mg PO HS 12/10/24 12/10/24 History Patient History Medical History Chronic respiratory failure on continuous O2 per records Mitral regurgitation Moderate to severe MR per 05/2024 ECHO Chronic combined systolic and diastolic CHF (congestive heart failure) EF 20-24% per 05/2024 ECHO Near euvolemic per 10/05/24 HF Clinic visit Ischemic cardiomyopathy EF 20-24% with anterior wall abnormality - s/p ICD placement Chronic anemia Cardiorenal syndrome with renal failure end stage Adult failure to thrive CLL (chronic lymphocytic leukemia) Under observation Sepsis due to pneumonia 07/2024 per records possible per [facility] read[facility] ESRD on dialysis M/W/F at [facility] History of placement of internal cardiac defibrillator 05/12/24 Paroxysmal ventricular tachycardia non-sustained 3-vessel CAD - 05/2024 cath- LAD 90-100% stenosis, Cx 90-100% stenosis, RCA 100% stenosis (medical management- no anginal symptoms per 10/05/24 HF clinic visit) - 2018- cath showed mid LAD 99% stenosis, D1 99% stenosis, ostial LCx 99% stenosis, subtotaled pRCA- transferred to [place]- was not a candidate for bypass- and underwent PCI - Anteroapical DC 2010 per cardio records Severe aortic stenosis deemed not surgical candidate for TAVR at [facility] 05/2024 Severe aortic stenosis suspected per 05/2024 ECHO DJD (degenerative joint disease), multiple sites 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 alf 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 Depression Hypertension Seasonal allergies Cerebral artery occlusion DM2 (diabetes mellitus, type 2) Nausea and vomiting after administration of anesthetic agent Osteoarthritis On anticoagulant therapy Hearing deficit Stroke x3 Hyperlipidemia Atrial fibrillation on Eliquis Myocardial Infarction 2010 & 2018 (cath w/1 stent) Asthma Surgical History S/P dialysis catheter insertion 05/2024 and exchange 10/2024, [facility] AICD (automatic cardioverter/defibrillator) present placed 05/12/24 Hx of cardiac cath 06/19/19, [facility] 05/30/2024, [facility] Hx of cataract surgery B/L H/O heart artery stent HX [place] , STENT X1 2019 History of phacoemulsification of cataract of both eyes with intraocular lens i mplantation History of dilatation and curettage x3 History of total left knee replacement (TKR) History of right breast biopsy x3--benign History of laparoscopy History of bilateral breast reduction surgery History of colonoscopy Family History Mother Family history of diabetes mellitus Myocardial infarction Family/Other Family history of diabetes mellitus cousin Aunt Breast cancer Father Myocardial infarction Stroke Other No family history of adverse response to anesthesia Denies family history of Ovarian cancer Prostate cancer Colorectal cancer Uterine cancer Social History Smoking Status: Former smoker Tobacco Type: Cigarettes Age Started Using Tobacco: 53; Age Quit Using Tobacco: 62; Cigarettes Per Day: HX OCCASSIONAL CIGARETTE 15 YRS AGO; Hx Alcohol Use: Yes Alcohol type: wine Alcohol Intake Frequency: 2-4 x/Month Hx Substance Use: No Preferred Language: Chilean Communication Ability: Effective Visual Impairment: No Limitations Hearing Ability: Use of Hearing Aid Contract Administrative Assistant Required: No Beliefs That Will Affect Care: None marital status: / Current Living Situation: [facility] Current Living Situation Comment: [facility] current occupational status: retired current occupation: worked for [email or web address] Feels Safe at Home: Yes Safety Concerns: Feels Safe At This Time Childhood Exposure to Second-Hand Smoke: Yes Diet: low salt Diet Comment: low sodium Dental Care, Regularly: Yes Physical Activity Frequency: Does not Exercise Seatbelt Use: always Sunscreen Use: No Assistive Devices: Walker and Wheelchair Review of Systems Review of Systems: All systems reviewed & are unremarkable except as noted in HPI & below Physical Exam Constitutional: WD/WN, vitals as above Respiratory: normal respiratory effort, lungs clear to auscultation Cardiovascular: Rate/Rhythm: regular rate and regular rhythm Gastrointestinal (Abdomen): normal bowel sounds, soft, nontender, no hepatosplenomegaly Psychiatric: Orientation: alert and oriented x 3 Affect: euthymic affect Results & Data Vital Signs (Past 12 Hours) Vital Signs Temp Pulse Pulse Resp BP BP Pulse Ox 12/11/24 08:08 98.4 F 60 18 110/53 L 98 12/11/24 08:00 12/11/24 07:44 60 12/11/24 03:56 12/11/24 03:56 97.7 F 62 21 96/55 L 92 12/11/24 02:35 97.7 F 62 21 96/55 L 92 12/11/24 02:35 12/11/24 00:30 65 18 118/75 92 12/11/24 00:30 60 21 111/74 95 12/11/24 00:09 61 24 117/65 94 12/10/24 23:30 60 22 108/59 L 95 12/10/24 23:15 60 12/10/24 23:00 60 22 109/54 L 96 12/10/24 22:31 61 22 102/64 94 Pulse Ox O2 Del Method O2 Del Method O2 Flow Rate O2 Flow Rate 12/11/24 08:08 Nasal Cannula 2 12/11/24 08:00 Nasal Cannula 12/11/24 07:44 12/11/24 03:56 Nasal Cannula 2 12/11/24 03:56 Nasal Cannula 2 12/11/24 02:35 Nasal Cannula 2 12/11/24 02:35 92 Nasal Cannula 2 12/11/24 00:30 Nasal Cannula 2 12/11/24 00:30 Nasal Cannula 2 12/11/24 00:09 Nasal Cannula 2 12/10/24 23:30 Nasal Cannula 2 12/10/24 23:15 12/10/24 23:00 Nasal Cannula 2 12/10/24 22:31 Nasal Cannula 2 Coding Level of Care Code 74597 INT INP/OBS CARE 255MIN Diagnoses Transaminitis R74.01
--- NOTE | 2024-12-11 10:14 | Nephrology Consultation ---
Date of Consultation December 11, 2024 Assessment & Plan (1) ESRD on dialysis: (2) Anemia: (3) RLL pneumonia: (4) Elevated troponin: Plan Mrs Diaz is a 79 year old female with ESRD on HD MWF, ASCVD, h/o AMI 2010, CHF, paroxysmal atrial fibrillation, AODM, CLL. Admitted to the hospital on 12/10/24 with an episode of unresponsiveness, concern for STEMI,. Rt LL pneumonia. Blood pressure relatively low but denies any dizziness or lightheadedness. Volume status acceptable. --Plan for dialysis today as her regular schedule, blood pressure relatively low, no significant volume overload, will try 2 L UF. --rt arm precaution --dose meds for eGFR <10 --continue on nephro caps daily Thank you for allowing me to participate in your patient's care. It was a pleasure to see Jere. History of Present Illness Attending Physician: Natalio Del Valle MD History of Present Illness Ms. Diaz is an 78 year old female with past medical history significant for stage 4 CKD., baseline Cr has been 1.8-2.0 mg/dl, ASCVD, h/o AMI 2010, CHF, paroxysmal atrial fibrillation, AODM, CLL. Admitted to the hospital on 05/02/24 with an episode of unresponsiveness, possible acute coronary event and pneumonia. EMR records reviewed in detail during patient's visit. Jere was brought to ER on 12/10/2024 after she had an episode of unresponsiveness at [facility]. Her oxygen saturation was in 80s while she was on 4 L nasal cannula oxygen. She reported feeling palpitation and fluttering in her chest prior to the event. She was noted to be in sustained V. tach. EKG on admission showed T wave inversions in inferior and anterior leads. Troponin was elevated at 5188 which has been increasing. Overnight she was started on heparin drip, amiodarone bolus and drip. She has no history of significant multivessel coronary artery disease on cardiac cath done recently. This morning she reports otherwise feeling much better than yesterday, denies any shortness of breath, chest pain. Blood pressures staying relatively stable. Hemoglobin was 9.3. Electrolytes are reasonable. Her last dialysis was last Wednesday. She reports recently she has been voiding more. Never smoker. She currently lives at [facility]. ESRD, secondary to cardiorenal syndrome, has been on dialysis since May 2024, dialyzes at [facility]. Has right IJ tunneled dialysis catheter. She had a right upper arm AV fistula placed on 12/07/[address] Hernández. Has been noticing some erythema and tenderness since the fistula placement. Reports feeling better this morning, no shortness of breath or chest pain. Blood pressure staying relatively low but asymptomatic. Allergies Allergy/AdvReac Type Severity Reaction Status Date / Time bee venom protein (honey bee) Allergy Severe Anaphylaxis Verified 12/10/24 20:30 Penicillins Allergy Severe Rash, Verified 12/10/24 20:30 anaphylaxis Sulfa (Sulfonamide Allergy Severe Rash, Verified 12/10/24 20:30 Antibiotics) anaphylaxis pseudoephedrine Allergy Unknown Unknown, Verified 12/10/24 20:30 on file w/ [facility] amlodipine AdvReac Intermediate Palpitation/Headache, Verified 12/10/24 20:30 on file w/ [facility] Home Medications Medication Instructions Recorded Confirmed Type atorvastatin 80 mg tablet (Lipitor) 80 mg PO HS #90 tabs 08/25/23 12/10/24 Rx lancets 31 gauge (Comfort Touch #100 ea 08/25/23 10/05/24 Rx Ultra Thin Lancets) nitroglycerin 0.4 mg sublingual 0.4 mg sublingual UD PRN Chest 08/25/23 12/10/24 Rx tablet (Nitrostat) Pain #25 tabs blood sugar diagnostic (OneTouch #100 ea 09/01/23 10/05/24 Rx Verio test strips) apixaban 2.5 mg tablet (Eliquis) 2.5 mg PO BID #60 tabs 05/24/24 12/10/24 Rx acetaminophen 500 mg tablet 1,000 mg PO Q8H PRN Fever Or Pain 05/25/24 12/10/24 History (Tylenol Extra Strength) albuterol sulfate 90 mcg/actuation 2 puff inhalation Q4H PRN SOB 05/25/24 12/10/24 History aerosol inhaler amiodarone 200 mg tablet 200 mg PO BID 05/25/24 12/10/24 History clopidogrel 75 mg tablet 75 mg PO HS 05/25/24 12/10/24 History metoprolol succinate 25 mg 25 mg PO BID 05/25/24 12/10/24 History tablet,extended release 24 hr cholecalciferol (vitamin D3) 50 2,000 unit PO HS #90 tabs 06/06/24 12/10/24 Rx mcg (2,000 unit) tablet isosorbide mononitrate 30 mg 30 mg PO HS 06/29/24 12/10/24 History tablet,extended release 24 hr lorazepam 0.5 mg tablet 0.5 mg PO BID 06/29/24 12/10/24 History melatonin 5 mg capsule 5 mg PO HS insomnia 06/29/24 12/10/24 History docusate sodium 100 mg tablet 200 mg PO HS 07/27/24 12/10/24 History omeprazole 20 mg tablet,delayed 20 mg PO HS 07/27/24 12/10/24 History release bisacodyl 10 mg rectal suppository 10 mg GA DAILY PRN Constipation 07/29/24 12/10/24 History (Dulcolax (bisacodyl)) fluticasone propionate 50 2 spray intranasal 3XWK 07/29/24 12/10/24 History mcg/actuation nasal spray,suspension sodium phosphates 19 gram-7 118 ml GA DAILY PRN Constipation 07/29/24 12/10/24 History gram/118 mL enema (Fleet Enema) levothyroxine 50 mcg capsule 50 mcg PO .QPM@2100 10/05/24 12/10/24 History acetaminophen 325 mg tablet 650 mg PO 3XWK 11/28/24 12/10/24 History sennosides 8.6 mg tablet (Senokot) 8.6 mg PO QPM 11/28/24 12/10/24 History sertraline 100 mg tablet (Zoloft) 100 mg PO HS 11/28/24 12/10/24 History oxycodone-acetaminophen 5 mg-325 1 tab PO Q6H PRN pain #20 tabs 12/07/24 12/10/24 Rx mg tablet (Percocet) acetaminophen 325 mg tablet 650 mg PO 4XWK 12/10/24 12/10/24 History (Tylenol) aluminum-mag hydroxide-simethicone 30 ml PO Q6H PRN Indigestion 12/10/24 12/10/24 History 400 mg-400 mg-40 mg/5 mL oral susp (Maalox Maximum Strength) cyanocobalamin (vitamin B-12) 1,000 mcg PO HS 12/10/24 12/10/24 History 1,000 mcg tablet (Vitamin B-12) fluticasone propionate 50 2 spray intranasal 4XWK 12/10/24 12/10/24 History mcg/actuation nasal spray,suspension folic acid 1 mg tablet 1 mg PO HS 12/10/24 12/10/24 History promethazine 25 mg tablet 25 mg PO Q6H PRN NAUSEA/VOMITING 12/10/24 12/10/24 History protein supplement 1 ea PO 4XWK 12/10/24 12/10/24 History spironolactone 25 mg tablet 25 mg PO HS 12/10/24 12/10/24 History Patient History Medical History Chronic respiratory failure on continuous O2 per records Mitral regurgitation Moderate to severe MR per 05/2024 ECHO Chronic combined systolic and diastolic CHF (congestive heart failure) EF 20-24% per 05/2024 ECHO Near euvolemic per 10/05/24 HF Clinic visit Ischemic cardiomyopathy EF 20-24% with anterior wall abnormality - s/p ICD placement Chronic anemia Cardiorenal syndrome with renal failure end stage Adult failure to thrive CLL (chronic lymphocytic leukemia) Under observation Sepsis due to pneumonia 07/2024 per records possible per [facility] read[facility] list ESRD on dialysis M/W/F at [facility] History of placement of internal cardiac defibrillator 05/12/24 Paroxysmal ventricular tachycardia non-sustained 3-vessel CAD - 05/2024 cath- LAD 90-100% stenosis, Cx 90-100% stenosis, RCA 100% stenosis (medical management- no anginal symptoms per 10/05/24 HF clinic visit) - 2018- cath showed mid LAD 99% stenosis, D1 99% stenosis, ostial LCx 99% stenosis, subtotaled pRCA- transferred to [place]- was not a candidate for bypass- and underwent PCI - Anteroapical [place] 2010 per cardio records Severe [place] stenosis [place] surgical [place] [facility] [place] Severe aortic stenosis suspected per 05/2024 ECHO DJD (degenerative joint disease), multiple sites 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 Depression Hypertension Seasonal allergies Cerebral artery occlusion DM2 (diabetes mellitus, type 2) Nausea and vomiting after administration of anesthetic agent Osteoarthritis On anticoagulant therapy Hearing deficit Stroke x3 Hyperlipidemia Atrial fibrillation on Eliquis Myocardial Infarction 2010 & 2019 (cath w/1 stent) Asthma Surgical History S/P dialysis catheter insertion 05/2024 and exchange 10/2024, [facility] AICD (automatic cardioverter/defibrillator) present placed 05/12/24 Hx of cardiac cath 06/19/19, [facility] [place] [facility] [place]x of cataract surgery B/L H/O heart artery stent HX [place] , STENT X1 2019 History of phacoemulsification of cataract of both eyes with intraocular lens implantation History of dilatation and curettage x3 History of total left knee replacement (TKR) History of right breast biopsy x3--benign History of laparoscopy History of bilateral breast reduction surgery History of colonoscopy Family History Mother Family history of diabetes mellitus Myocardial infarction Family/Other Family history of diabetes mellitus cousin Aunt Breast cancer Father Myocardial infarction Stroke Other No family history of adverse response to anesthesia Denies family history of Ovarian cancer Prostate cancer Colorectal cancer Uterine cancer Social History Smoking Status: Former smoker Tobacco Type: Cigarettes Age Started Using Tobacco: 53; Age Quit Using Tobacco: 62; Cigarettes Per Day: HX OCCASSIONAL CIGARETTE 15 YRS AGO; Hx Alcohol Use: Yes Alcohol type: wine Alcohol Intake Frequency: 2-4 x/Month Hx Substance Use: No Preferred Language: Ugandan Communication Ability: Effective Visual Impairment: No Limitations Hearing Ability: Use of Hearing Aid Bus Cleaner Required: No Beliefs That Will Affect Care: None marital status: / Current Living Situation: Detention Current Living Situation Comment: [facility] current occupational status: retired current occupation: worked for [employer] Feels Safe at Home: Yes Safety Concerns: Feels Safe At This Time Childhood Exposure to Second-Hand Smoke: Yes Diet: low salt Diet Comment: low sodium Dental Care, Regularly: Yes Physical Activity Frequency: Does not Exercise Seatbelt Use: always Sunscreen Use: No Assistive Devices: Walker and Wheelchair Review of Systems Review of Systems: All systems reviewed & are unremarkable except as noted in HPI & below Physical Exam Constitutional: WD/WN, vitals as above + ill appearing; no acute distress Eyes: + anicteric sclerae Respiratory: Auscultation: lungs clear to auscultation bilaterally Cardiovascular: RRR, no murmur, no edema Rate/Rhythm: + tachycardic and + irregularly irregular Heart Sounds: normal S1 and normal S2 Extremities: + AV fistula (rt BC ABF with bruit, erythema, tenderness, krystian in place); no edema Gastrointestinal (Abdomen): Inspection/Auscultation: abdomen normal to inspection Percussion/Palpation: abdomen soft; abdomen nontender Musculoskeletal: Extremities: extremities normal to inspection Skin: no rashes, warm and dry Neurologic: no focal motor deficits Psychiatric: Orientation: alert and oriented x 3 Affect: euthymic affect Results & Data Vital Signs (Past 12 Hours) Vital Signs Temp Pulse Pulse Resp BP BP Pulse Ox 12/11/24 08:08 36.9 C 60 18 110/53 L 98 12/11/24 08:00 12/11/24 07:44 60 12/11/24 03:56 12/11/24 03:56 36.5 C 62 21 96/55 L 92 12/11/24 02:35 36.5 C 62 21 96/55 L 92 12/11/24 02:35 12/11/24 00:30 65 18 118/75 92 12/11/24 00:30 60 21 111/74 95 12/11/24 00:09 61 24 117/65 94 12/10/24 23:30 60 22 108/59 L 95 12/10/24 23:15 60 12/10/24 23:00 60 22 109/54 L 96 12/10/24 22:31 61 22 102/64 94 Pulse Ox O2 Del Method O2 Del Method O2 Flow Rate O2 Flow Rate 12/11/24 08:08 Nasal Cannula 2 12/11/24 08:00 Nasal Cannula 12/11/24 07:44 12/11/24 03:56 Nasal Cannula 2 12/11/24 03:56 Nasal Cannula 2 12/11/24 02:35 Nasal Cannula 2 12/11/24 02:35 92 Nasal Cannula 2 12/11/24 00:30 Nasal Cannula 2 12/11/24 00:30 Nasal Cannula 2 12/11/24 00:09 Nasal Cannula 2 12/10/24 23:30 Nasal Cannula 2 12/10/24 23:15 12/10/24 23:00 Nasal Cannula 2 12/10/24 22:31 Nasal Cannula 2 PG Care Time/CCT Total # of Minutes Spent Total Time Spent with Patient: Total time spent is greater than 50% in coordination of care (as documented) at patient's floor/unit and/or counseling patient: Coding Level of Care Code 37125 INT INP/OBS CARE 3/75MIN Diagnoses ESRD on dialysis N18.6; Z99.2 Anemia D64.9 RLL pneumonia J18.9 Pneumonia type: due to unspecified organism Elevated troponin R79.89 (3) RLL pneumonia Pneumonia type: due to unspecified organism Qualified Code(s): J18.9 - Pneumonia, unspecified organism
[2024-12-11 12:25] LABS: Hep B Surface Ag with confirm Negative (Negative)
[2024-12-11 12:34] LABS: Hepatitis B Surface Ab Quant < 3.00 mIU/mL (>or=10mIU/mL Immune); Hepatitis B Surface Antibody Non-Immune
--- NOTE | 2024-12-11 13:26 | XCELERA ---
[id number] \\[email or web address]\[id number]
[2024-12-11] MEDS: METOPROLOL SUCC 25MG EXT REL TAB PO SCH (13:34)
--- NOTE | 2024-12-11 15:38 | Ultrasound Report ---
ABDOMINAL ULTRASOUND, RIGHT UPPER QUADRANT HISTORY: Acute right upper quadrant abdominal pain gb distension. COMPARISON: CT 12/10/2024 FINDINGS: Pancreas: Echogenic appearance of the atrophic pancreas. 9 x 6 x 10 mm cystic focus of the pancreatic head may represent a sidebranch IPMN. Liver: 19 cm in length. Patent portal vein. No suspicious mass lesions. No marginal nodularity to sug gest cirrhosis. Gallbladder: No gallbladder wall thickening. Trace gallbladder sludge. Vicarious excretion of contras t seen on the comparison CT. No gallstones. CBD: 4 mm Right kidney: Cortical thinning with increased parenchymal echogenicity compatible with chronic medic al renal disease No hydronephrosis. IMPRESSION: 1. Trace gallbladder sludge without cholelithiasis or sonographic evidence of acute cholecystitis. Vi carious excretion of contrast is seen on the comparison CT study. 2. No biliary ductal dilation. 3. Evidence of chronic medical renal disease. 4. 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 ACT 112: Negative or not required by law. Electronically signed by: Justus Baires M.D. 12/11/2024 3:36 PM
--- NOTE | 2024-12-11 17:10 | Dialysis Progress Note ---
Date of Service December 11, 2024 Assessment & Plan (1) ESRD on dialysis: (2) Anemia: (3) RLL pneumonia: (4) Elevated troponin: Plan Mrs Diaz is a 79 year old female with ESRD on HD MWF, ASCVD, h/o AMI 2010, CHF, paroxysmal atrial fibrillation, AODM, CLL. Admitted to the hospital on 12/10/24 with an episode of unresponsiveness, concern for STEMI,. Rt LL pneumonia. Blood pressure relatively low but denies any dizziness or lightheadedness. Right IJ tunneled dialysis catheter functioning well. --change dialysis time to 3.5-hour based on her outpatient dialysis prescription. Decrease the plan for UF to just 1 L but lower UF if blood pressure drops further. --rt arm precaution Will be available during dialysis treatment. Thank you for allowing me to participate in your patient's care. It was a pleasure to see Jere. Admission and Anticipated Discharge Date Admission Date: December 10, 2024 Srikanth Bardales was seen during hemodialysis. She was tolerating dialysis well, denies shortness of breath, dizziness lightheadedness. She reports noticing increased urine output recently. Outpatient dialysis prescription reviewed, according to record her weight was close to her dry weight. Blood pressure is relatively low. Tunnel dialysis catheter is functioning well. Review of Systems Review of Systems: ROS was otherwise unremarkable. Physical Exam Constitutional: WD/WN, vitals as above no acute distress Eyes: + anicteric sclerae Respiratory: no respiratory distress Auscultation: + crackles (Rt base) Cardiovascular: Rate/Rhythm: + tachycardic and + irregularly irregular Hea rt Sounds: normal S1 and normal S2 Extremities: + AV fistula (rt BC ABF with bruit, erythema, tenderness, krystian in place); no edema Neurologic: no focal motor deficits Results & Data Vital Signs (Past 12 Hours) Vital Signs Temp Pulse Pulse Pulse Resp BP BP 12/11/24 16:12 36.6 C 73 20 112/59 L 12/11/24 14:23 36.7 C 79 20 110/42 L 12/11/24 14:04 36.4 C L 60 120/58 L 12/11/24 13:30 60 90/60 L 12/11/24 13:00 32 L 128/100 12/11/24 12:30 60 110/53 L 12/11/24 12:00 55 L 104/77 12/11/24 11:30 53 L 127/58 L 12/11/24 11:00 53 L 97/78 L 12/11/24 10:30 60 119/57 L 12/11/24 10:20 60 119/63 12/11/24 10:10 36.4 C L 58 L 12/11/24 08:08 36.9 C 60 18 110/53 L 12/11/24 08:00 12/11/24 07:44 60 Pulse Ox O2 Del Method O2 Flow Rate 12/11/24 16:12 97 Nasal Cannula 2 12/11/24 14:23 96 Nasal Cannula 2 12/11/24 14:04 12/11/24 13:30 12/11/24 13:00 12/11/24 12:30 12/11/24 12:00 12/11/24 11:30 12/11/24 11:00 12/11/24 10:30 12/11/24 10:20 12/11/24 10:10 12/11/24 08:08 98 Nasal Cannula 2 12/11/24 08:00 Nasal Cannula 12/11/24 07:44 Coding Level of Care Code 69191 SUB INP/OBS CARE 10/07MIN Diagnoses ESRD on dialysis N18.6; Z99.2 Anemia D64.9 RLL pneumonia J18.9 Pneumonia type: due to unspecified organism Elevated troponin R79.89 (3) RLL pneumonia Pneumonia type: due to unspecified organism Qualified Code(s): J18.9 - Pneumonia, unspecified organism
[2024-12-11] MEDS: LEVOTHYROXINE SODIUM 50 MCG TABLET PO SCH (20:54)
[2024-12-11] MEDS: SERTRALINE HCL 100 MG TABLET PO SCH (20:54)
[2024-12-11] MEDS: PANTOprazole 40 MG TAB PO SCH (20:54)
[2024-12-11] MEDS: ISOSORBIDE MONO EXTENDED REL 30 MG TABCR PO SCH (20:54)
[2024-12-11] MEDS: ONDANSETRON INJ 2 MG/ML 2 ML VIAL IV PRN (22:14)
[2024-12-12 06:12] LABS: Hematocrit (blood only) 26.3 % (37.0-47.0); Hemoglobin 8.5 g/dl (12.0-16.0); Mean Corpuscular Hemoglobin 32.3 pg (25.0-34.0); Mean Corpuscular Hgb Conc 32.3 g/dL (32.0-36.0); Platelet Count 190 K/uL (130-400); RDW Coefficient of Variation 14.3 % (11.5-14.5); Red Blood Count 2.63 M/uL (4.20-5.40); White Blood Count 20.93 K/ul (4.8-10.8)
[2024-12-12 07:04] LABS: ALC (manual) 10.26 K/uL (1.2-3.4); ANC (manual) 9.21 K/uL (1.4-6.5); Basophils # (manual) 0.21 K/uL (0-0.2); Basophils % (manual) 1 %; Eosinophils # (manual) 0.42 K/uL (0-0.50); Eosinophils % (manual) 2 %; Lymphocytes # (manual) 10.26 K/uL (1.2-3.4); Lymphocytes % (manual) 49 %; Monocytes # (manual) 0.84 K/uL (0.11-0.59); Monocytes % (manual) 4 %; Neutrophils # (manual) 9.21 K/uL (1.40-6.50); Neutrophils % (manual) 44 %; Polychromasia 1+; Smudge Cells Present
[2024-12-12 07:24] LABS: Albumin Level 3.2 gm/dl (3.4-5.0); Bilirubin,Total 0.6 mg/dl (0.2-1.0); Calcium 8.9 mg/dl (8.6-10.3); Magnesium 2.6 mg/dl (1.7-2.4)
[2024-12-12 07:56] LABS: Albumin Globulin Ratio 1.3 (0.9-2); Creatinine Clr Calc Pharmacy 14.6 ml/min; Globulin 2.5 gm/dl (2.5-4.0); Total Protein 5.7 gm/dl (6.0-8.3)
[2024-12-12] MEDS: oxyCODONE HCL IR 5 MG TAB (IMMEDIATE RELEASE) PO PRN (09:20)
--- NOTE | 2024-12-12 09:48 | Nephrology Progress Note ---
Date of Service December 12, 2024 Assessment & Plan (1) ESRD on dialysis: (2) Anemia: (3) RLL pneumonia: (4) Elevated troponin: Plan Mrs Diaz is a 79 year old female with ESRD on HD MWF, ASCVD, h/o AMI 2010, CHF, paroxysmal atrial fibrillation, AODM, CLL. Admitted to the hospital on 12/10/24 with an episode of unresponsiveness, concern for STEMI,. Rt LL pneumonia. Had dialysis yesterday, tolerated well. Blood pressure has been stable. Electrolyte acceptable. Has been doing well except pain at right upper extremity surgical area. --Keep right arm elevated, analgesic as needed for pain control. --Plan for dialysis tomorrow as regular schedule --Dose medications for eGFR less than 10 --rt arm precaution Admission and Anticipated Discharge Date Admission Date: December 10, 2024 Srikanth Bardales was seen this morning. She continues to be bothered by pain and swelling in her right upper extremity including her hands. She denies shortness of breath, dizziness lightheadedness. Blood pressure well controlled. Volume status acceptable. Tunnel dialysis catheter has been functioning well. Review of Systems Review of Systems: All systems reviewed & are unremarkable except as noted in Subjective Physical Exam Constitutional: WD/WN, vitals as above no acute distress Eyes: + anicteric sclerae Respiratory: no respiratory distress Auscultation: lungs clear to auscultation bilaterally Cardiovascular: RRR, no murmur, no edema Rate/Rhythm: + tachycardic and + irregularly irregular Heart Sounds: normal S1 and normal S2 Extremities: + AV fistula (rt BC ABF with bruit, erythema, tenderness, krystian in place); no edema Skin: no rashes, warm and dry Neurologic: no focal motor deficits Psychiatric: Orientation: alert and oriented x 3 Affect: euthymic affect Results & Data Vital Signs (Past 12 Hours) Vital Signs Temp Pulse Pulse Resp BP Pulse Ox Pulse Ox 12/12/24 09:17 60 12/12/24 07:49 36.4 C L 60 21 128/70 97 12/12/24 02:59 36.9 C 60 18 108/58 L 97 12/12/24 02:35 95 12/11/24 23:26 36.9 C 60 18 94/50 L 97 O2 Del Method O2 Del Method O2 Flow Rate O2 Flow Rate 12/12/24 09:17 12/12/24 07:49 Nasal Cannula 2 12/12/24 02:59 Nasal Cannula 2 12/12/24 02:35 Nasal Cannula 2 12/11/24 23:26 Nasal Cannula 2 PG Care Time/CCT Total # of Minutes Spent Total Time Spent with Patient: Total time spent is greater than 50% in coordination of care (as documented) at patient's floor/unit and/or counseling patient: Coding Level of Care Code 32817 SUB INP/OBS CARE MIN Diagnoses ESRD on dialysis N18.6; Z99.2 Anemia D64.9 RLL pneumonia J18.9 Pneumonia type: due to unspecified organism Elevated troponin R79.89 (3) RLL pneumonia Pneumonia type: due to unspecified organism Qualified Code(s): J18.9 - Pneumonia, unspecified organism
--- NOTE | 2024-12-12 11:22 | Cardiology Progress Note ---
Date of Service December 12, 2024 Assessment & Plan (1) Demand ischemia: (2) 3-vessel CAD: (3) Ischemic cardiomyopathy: (4) ICD (implantable cardioverter-defibrillator) in place: (5) Nonsustained ventricular tachycardia: (6) Severe aortic stenosis: (7) Moderate to severe mitral regurgitation: (8) ESRD on dialysis: Plan Patient is doing well from a cardiac standpoint, no clinical evidence of ongoing myocardial ischemia or dysrhythmias. Volume status improved postdialysis. Echo showed similar wall motion abnormalities to 2023, LVEF had mildly improved. Etiology of her syncopal episode remains uncertain. Main somatic complaint is right upper extremity discomfort, Dr. Hernández is aware. No need for MCOT monitor upon discharge, since she has a pacemaker which will document any dysrhythmias. No new cardiac recommendations. Will sign off, please contact if there is change in the patient's clinical status. Admission and Anticipated Discharge Date Admission Date: December 10, 2024 Subjective Uneventful night. Patient again complains of right upper extremity pain and loss of function (possibly secondary to pain). She denies any chest pain, dyspnea, lightheadedness, or palpitations. Echocardiogram yesterday showed EF 25-30%, mildly improved versus 202 study. 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 Telemetry showed sinus rhythm with first-degree block around 70 bpm alternating with electronically paced rhythm at 60 bpm. Physical Exam Physical Exam: Appears mildly uncomfortable but not acutely distressed. BP 143/58 mmHg. Pulse 60 bpm and regular (paced). Respirations 20 and unlabored. Skin: no ecchymoses or generalized lesions. HEENT: unremarkable. Neck: JVP just above the clavicle at 90 degrees, carotids with bilateral transmitted murmur. Lungs: clear anteriorly. Cardiac: regular rhythm, inaudible aortic closure sound, 3/6 crescendo/decrescendo systolic ejection murmur right upper sternal border rating widely, tearful 6 apical systolic murmur. No diastolic murmur. Abdomen: benign. Extremities: no edema, right upper extremity with intact AV fistula (recently placed, sutures clean and dry). Neurologic: normal affect and conversation, difficulty lifting her right arm or performing handgrip (possibly secondary to pain rather than loss of function). Results & Data Laboratory Results WBC 20.9, hemoglobin 8.5, normal platelet count. Normal electrolytes, BUN 36, creatinine 3.01. PG Care Time/CCT Total # of Minutes Spent Total Time Spent with Patient: Total time spent is greater than 50% in coordination of care (as documented) at patient's floor/unit and/or counseling patient: Coding Level of Care Code 28385 SUB INP/OBS CARE 2/35MIN Diagnoses Demand ischemia I24.89 3-vessel CAD I25.10 Ischemic cardiomyopathy I25.5 ICD (implantable cardioverter-defibrillator) in place Z95.810 Nonsustained ventricular tachycardia I47.29 Severe aortic stenosis I35.0 Moderate to severe mitral regurgitation I34.0 ESRD on dialysis N18.6; Z99.2
--- NOTE | 2024-12-12 13:38 | Hospitalist Progress Note ---
Date of Service December 12, 2024 Assessment & Plan (1) Right arm pain: (2) AV fistula: (3) Constipation: (4) Acute hypoxemic respiratory failure: (5) Aspiration pneumonia: (6) UTI (urinary tract infection): (7) Elevated troponin: (8) ESRD on dialysis: (9) Pulmonary edema: (10) Transaminitis: (11) Hypotension: (12) Ischemic cardiomyopathy: (13) Nonsustained ventricular tachycardia: (14) ICD (implantable cardioverter-defibrillator) in place: (15) HFrEF (heart failure with reduced ejection fraction): (16) CAD (coronary artery disease): (17) CLL (chronic lymphocytic leukemia): (18) Severe aortic stenosis: (19) Left ventricular aneurysm: Plan 83yo female - HFrEF (EF 25-30%), severe CAD (all 3 epicardial vessels), severe aortic stenosis, ESRD on HD M/W/F, A-fib on Eliquis, ICD/pacemaker status, LV aneurysm, CLL. Presented from [facility] due to unresponsive episode and acute hypoxic resp failure. EMS found her to have oxygen levels in the 80s upon arrival to SNF. By report patient stated she had a fluttering in her chest and nausea prior to the episode. Upon presentation to [facility] found to have a troponin of 5188.[address] segment elevations in the anteroseptal leads with inferior ST depression. Started on heparin drip, amiodarone bolus and drip. Additionally her chest imaging showed right sided pneumonia & pulm edema. Labs revealed elevated LFTs. #acute hypoxic resp failure - * likely 2nd to pneumonia and pulmonary edema * improved s/p HD on 12/11 as well as antibiotics for pneumonia * O2 has been weaned off with stable sats in room air #right-sided pneumonia - * typical vs aspiration vs gram negative all possible * currently on levaquin q48h * MRSA screen negative #right arm pain - * most severe pain is distally in the right wrist and right hand * she has evidence of what looks like ulnar nerve compromise leading to her exam findings * description of pain sounds neuropathic (hyperalgesia, intermittent, sharp, etc) * ordered oxycodone 2.5mg prn * ordered low-dose gabapentin (in light of hepatic dysfunction, advanced age, etc) - 50mg HS starting tonight * arterial duplex study of RLE obtained -- does not appear to have a steal phenomenon from her AV fistula; blood flow to the hand is intact * x-rays of R wrist/hand - no fractures; 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 nerve injury s/p AV fistula creation? other? * will ultimately need PT/OT for the right arm and hand #Elevated Troponin / known, severe triple-vessel CAD - * peak HS troponin - 5888 * appreciate MNP cardiology consultation * STEMI/NSTEMI not suspected * troponin elevation - myocardial demand ischemia in the setting of her acute hypoxic resp failure, pneumonia, UTI, other acute issues * echo with NO changes in comparison to previous echo (slight improvement in EF actually) * Dr Truong states that ST segment elevations can be difficult to interpret in setting of LV aneurysm * will obtain repeat EKG in am tomorrow * pt is not having any ischemic symptoms at this time and did not have any at time of admission * Dr Truong not recommending heart cath; previous heparin drip d/c; previous amiodarone drip d/c * previous cath - 05/30/24 - LAD 90-100% occlusion, Left Cx 90-100% occlusion, RCA 90-100% occlusion * cont meto succ 25mg BID; imdur 30mg daily; resume Eliquis 2.5mg BID starting tonight; statin held due to abnormal LFTs #ICD/pacemaker status - * patient has [employer] Lanexa XT device - placed 04/2024 due to VT and depressed LV function * interrogation this admission - nonsustained VT and a.fib with aberrancy; NO SUSTAINED VT seen * had received IV amiodarone bolus then drip - cardiology advised discontinuation * amiodarone 200mg BID - resume tonight #ESRD on HD - // - * missed HS session 12/08 * likely pulmonary edema upon admission * s/p HD 12/11 * next session tomorrow * appreciate nephrology assistance * see "right arm pain" above re: AV fistula #chronic systolic CHF - * appears compensated today * volume control via HD * cont meto succ BID * not a candidate for TRACY/ARB/Entresto/aldactone due to ESRD #klebsiella UTI - * levaquin q48h #abnormal LFTs - * 2nd to hepatic congestion/shock liver in setting of hypoperfusion during her unresponsive episode? * 2nd to statin? * 2nd to amiodarone? * other? * holding statin * serial LFTs * RUQ u/s noted (no acute cholecystitis) * appreciate GI consult - nothing to do on their end #constipation - * dulcolax suppox x 1 now * then senna/miralax daily for bowel maintenance #severe - * not a TAVR candidate * severe * certainly can contribute to syncope but patient was not walking or upright during her episode at the SNF #atrial fibrillation - * resume Eliquis 2.5mg BID * resume amiodarone 200mg BID * cont meto succ 25mg BID * TSH 2.5 in 08/2024 Chronic stable diagnoses: CLL leukocytosis 2nd to such; follow hypothyroidism - continue levothyroxine; TSH wnl in 09/05 insomnia - continue melatonin anxiety - continue lorazepam and sertraline GERD - continue PPI daughter extensively updated by phone 12/12/24 by report patient is largely bed or wheelchair bound at [facility] - defer on PT/OT at this time very complex care management - total 90 minutes spent on extensive chart review, ordering tests for RUE, updating family, corresponding with vascular surgery, documentation, and high-risk med management Admission and Anticipated Discharge Date Admission Date: December 10, 2024 Subjective patient lying in bed upon arrival she had 2 main complaints - * constipation - passing flatus, but no luck with having a BM; she is uncomfortable because of the constipation * right arm pain - severe - comes/goes - sharp - main area of pain is the entire hand; she has significant limitation of ROM of the fingers particularly the 3rd/4th/5th fingers; some pain over the right wrist; discomfort over the upper right arm; denies numbness or tingling; she is right-handed and has been unable to use the hand starting about 2 days after her recent AV fistula creation in the upper right arm on 12/07/24; pain started the same time as the dysfunction she has mild cough denies dyspnea denies chest pain tele overnight NSR she is frustrated by her current state of health and all of the problems she is having Review of Systems Review of Systems: gen - no fevers or chills; fatigued; fair appetite cv - no chest pain pulm - no dyspnea at rest GI - no N/V; abd discomfort & constipation Physical Exam Physical Exam: gen - uncomfortable, frustrated, but awake/alert neck - no JVD mouth - MMM heart - RRR, s1 s2, 3/6 holosystolic murmur RUSB lungs - mild rales b/l bases, R>L; no wheeze; no increased work of breathing; good airation abd - soft NT ND BS+; no HSM ext - no peripheral edema of legs; right arm - 2 incisions medial aspect of upper arm, clean; generalized swelling of the tail of the axillae and upper right arm; some swelling extending below the right elbow and into the right wrist/hand; no cellulitis any location vascular - positive bruit right upper arm fistula; radial and ulnar pulses right wrist 1-2+; perfusion of right hand is normal; upper chest - HD catheter clean musculo - "claw hand" appearance of right hand with all fingers flexed but particularly the 3rd/4th/5th fingers; no synovitis of any finger; ?synovitis of right wrist; handgrip on right - 3-4/5; unable to fully extend the fingers of right hand; difficult extending the right wrist; no pain with flexing the right elbow or passive ROM of right shoulder Results & Data Results & Data Vital Signs (Past 12 Hours) Vital Signs Temp Pulse Pulse Resp BP Pulse Ox Pulse Ox 12/12/24 11:45 61 113/57 L 12/12/24 10:56 143/58 H 12/12/24 10:36 37.3 C 60 20 114/43 L 90 12/12/24 09:44 12/12/24 09:17 60 12/12/24 07:49 36.4 C L 60 21 128/70 97 12/12/24 02:59 36.9 C 60 18 108/58 L 97 12/12/24 02:35 95 O2 Del Method O2 Del Method O2 Flow Rate O2 Flow Rate 12/12/24 11:45 12/12/24 10:56 12/12/24 10:36 Room Air 12/12/24 09:44 Room Air 12/12/24 09:17 12/12/24 07:49 Nasal Cannula 2 12/12/24 02:59 Nasal Cannula 2 12/12/24 02:35 Nasal Cannula 2 Laboratory Results Laboratory Results - last 24 hr 12/12/24 05:37 WBC 20.93 H RBC 2.63 L Hgb 8.5 L Hct 26.3 L MCV 100.0 MCH 32.3 MCHC 32.3 RDW Std Deviation 52.0 H RDW Coeff of Nino 14.3 Plt Count 190 MPV 10.0 Neutrophils % (Manual) 44 Lymphocytes % (Manual) 49 Monocytes % (Manual) 4 Eosinophils % (Manual) 2 Basophils % (Manual) 1 Neutrophils # (Manual) 9.21 H Total Absolute Neuts 9.21 H Lymphocytes # (Manual) 10.26 H Total Abs Lymphocytes 10.26 H Monocytes # (Manual) 0.84 H Eosinophils # (Manual) 0.42 Basophils # (Manual) 0.21 H Smudge Cells Present Polychromasia 1+ Sodium 137 Potassium 4.0 Chloride 101 Carbon Dioxide 30 Anion Gap 6 BUN 36 H D Creatinine 3.01 H D Est Cr Clr Drug Dosing 14.6 eGFR 15.08 BUN/Creatinine Ratio 12.0 Glucose 95 Calcium 8.9 Magnesium 2.6 H Total Bilirubin 0.6 AST 212 H ALT 289 H Alkaline Phosphatase 126 H Total Protein 5.7 L Albumin 3.2 L Globulin 2.5 Albumin/Globulin Ratio 1.3 Microbiology 12/10/24 21:43 Urine,Straight Cath Urine Culture - Final Klebsiella pneumoniae Diagnostic Findings Duplex Scan Upper Extremity Artery 12/12/24 14:00 RIGHT UPPER EXTREMITY ARTERIAL DUPLEX ULTRASOUND TECHNIQUE: Survey ultrasound imaging of the right upper extremity arterial system is performed including color and spectral Doppler evaluation with manufacturer's representative images submitted. INDICATION: Pain COMPARISON: None FINDINGS: Velocities: Common carotid artery: 98.0 cm/s Subclavian artery: 142.0 cm/s Axillary artery: 133.0 cm/s Proximal brachial artery: 133.0 cm/s Mid brachial artery: 184.0 cm/s Distal brachial artery: 272.0 cm/s Radial artery: 63.0 cm/s Ulnar artery: 63.0 cm/s Arterial anastomosis site: 722 cm/s. There is moderate stenosis suggested at the anastomosis. Otherwise scattered atherosclerotic plaques are noted in the right upper extremity arterial circuit. IMPRESSION: Stenosis at the arterial anastomosis site with severely elevated flow velocity. Also there are stenoses in the mid and distal segments of the brachial artery. Electronically signed by Pb Lopez 12-12-2024 4:38 PM Hand X-Ray 12/12/24 14:00 XR hand RT 2V HISTORY: 79 years-old Female severe pain multiple fingers COMPARISON: Right wrist radiographs of same day TECHNIQUE: 2 views of the right hand FINDINGS: Demineralized appearance of the bones. No acute fracture, dislocation or osseous erosion. Arterial calcifications. Chondrocalcinosis of the TFCC. Multifocal osteoarthritis, moderate in the first carpometacarpal joint and also moderate within the interphalangeal joints of the second and third fingers. Soft tissue swelling is most pronounced in the second and third fingers as well. IMPRESSION: 1. No acute fracture or dislocation. 2. Osteoarthritis with soft tissue swelling. 3. No acute erosive changes identified. ACT 112: Negative or not required by law. The above report was generated using voice recognition software. It may contain grammatical, syntax or spelling errors. Electronically signed by: Justus Baires M.D. 12/12/2024 2:33 PM Wrist X-Ray 12/12/24 14:00 XR wrist RT 2V CLINICAL HISTORY: Severe right wrist pain. COMPARISON: None FINDINGS: Alignment of the right wrist is anatomic. There is no acute fracture. No osseous lesions are present. There is moderate joint space narrowing and osteophytosis of the right first carpometacarpal joint and the radiocarpal articulation. Right wrist soft tissue swelling is present. Extensive vascular calcification. IMPRESSION: 1. No fractures within the right wrist. 2. Moderate osteoarthritis within several articulations of the right wrist. 3. Right wrist soft tissue swelling. ACT 112: Negative or not required by law. Electronically signed by: Giovanni Dixon M.D. 12/12/2024 2:29 PM PG Care Time/CCT Total # of Minutes Spent Total Time Spent with Patient: Total time spent is greater than 50% in coordination of care (as documented) at patient's floor/unit and/or counseling patient: Prolonged Care Time Prolonged Care Time: Yes Total Prolonged Care Time: 90 Coding Level of Care Code 92416 SUB INP/OBS CARE 3/50MIN (25 - SIGNIFICANT, SEPARATELY IDENTIFIABLE ) Diagnoses Right arm pain M79.601 AV fistula I77.0 Constipation K59.00 Acute hypoxemic respiratory failure J96.01 Aspiration pneumonia J69.0 UTI (urinary tract infection) N39.0 Elevated troponin R79.89 ESRD on dialysis N18.6; Z99.2 Pulmonary edema J81.1 Transaminitis R74.01 Hypotension I95.9 Ischemic cardiomyopathy I25.5 Nonsustained ventricular tachycardia I47.29 ICD (implantable cardioverter-defibrillator) in place Z95.810 HFrEF (heart failure with reduced ejection fraction) I50.20 Coronary artery disease involving [place] coronary artery of [place] heart without angina pectoris I25.10 Coronary Disease-Associated Artery/Lesion type: [place] artery [place] vs. transplanted heart: [place] heart Associated angina: without angina CLL (chronic lymphocytic leukemia) C91.10 Severe aortic stenosis I35.0 Left ventricular aneurysm I25.3 Additional Codes Prolonged Care Time - Prolonged Care Time: Yes ([id number]) (16) CAD (coronary artery disease) Coronary Disease-Associated Artery/Lesion type: [place] artery [place] vs. transplanted heart: [place] heart Associated angina: without angina Qualified Code(s): I25.10 - Atherosclerotic heart disease of [place] coronary artery without angina pectoris
[2024-12-12] MEDS: bisacodyL 10 MG SUPP PR STA (13:57)
[2024-12-12] MEDS: POLYETHYLENE (MIRALAX) 17 GM PACK PO SCH (13:57)
--- NOTE | 2024-12-12 14:32 | XRay Report ---
XR wrist RT 2V CLINICAL HISTORY: Severe right wrist pain. COMPARISON: None FINDINGS: Alignment of the right wrist is anatomic. There is no acute fracture. No osseous lesions a re present. There is moderate joint space narrowing and osteophytosis of the right first carpometacar pal joint and the radiocarpal articulation. Right wrist soft tissue swelling is present. Extensive va scular calcification. IMPRESSION: 1. No fractures within the right wrist. 2. Moderate osteoarthritis within several articulations of the right wrist. 3. Right wrist soft tissue swelling. ACT 112: Negative or not required by law. Electronically signed by: Giovanni Dixon M.D. 12/12/2024 2:29 PM
--- NOTE | 2024-12-12 14:34 | XRay Report ---
XR hand RT 2V HISTORY: 79 years-old Female severe pain multiple fingers COMPARISON: Right wrist radiographs of same day TECHNIQUE: 2 views of the right hand FINDINGS: Demineralized appearance of the bones. No acute fracture, dislocation or osseous erosion. Arterial ca lcifications. Chondrocalcinosis of the TFCC. Multifocal osteoarthritis, moderate in the first carpome tacarpal joint and also moderate within the interphalangeal joints of the second and third fingers. S oft tissue swelling is most pronounced in the second and third fingers as well. IMPRESSION: 1. No acute fracture or dislocation. 2. Osteoarthritis with soft tissue swelling. 3. No acute erosive changes identified. ACT 112: Negative or not required by law. The above report was generated using voice recognition software. It may contain grammatical, syntax o r spelling errors. Electronically signed by: Justus Baires M.D. 12/12/2024 2:33 PM
--- NOTE | 2024-12-12 16:38 | Ultrasound Report ---
RIGHT UPPER EXTREMITY ARTERIAL DUPLEX ULTRASOUND TECHNIQUE: Survey ultrasound imaging of the right upper extremity arterial system is performed including color and spectral Doppler evaluation with mortician supplies sales representative images submitted. INDICATION: Pain COMPARISON: None FINDINGS: Velocities: Common carotid artery: 98.0 cm/s Subclavian artery: 142.0 cm/s Axillary artery: 133.0 cm/s Proximal brachial artery: 133.0 cm/s Mid brachial artery: 184.0 cm/s Distal brachial artery: 272.0 cm/s Radial artery: 63.0 cm/s Ulnar artery: 63.0 cm/s Arterial anastomosis site: 722 cm/s. There is moderate stenosis suggested at the anastomosis. Otherwise scattered atherosclerotic plaques are noted in the right upper extremity arterial circuit. IMPRESSION: Stenosis at the arterial anastomosis site with severely elevated flow velocity. Also there are stenoses in the mid and distal segments of the brachial artery. Electronically signed by Pb Lopez 12-12-2024 4:38 PM
[2024-12-12] MEDS: APIXABAN 2.5 MG TAB PO SCH (20:41)
[2024-12-12] MEDS: GABAPENTIN 250 MG/5 ML 470 ML BTL PO SCH (20:42)
[2024-12-12] MEDS: AMIODARONE 200 MG TAB PO ONE (20:46)
[2024-12-13] MEDS: levoFLOXacin/D5W 500 MG/100 ML BAG IV SCH (06:58)
[2024-12-13 07:30] LABS: Albumin Level 3.1 gm/dl (3.4-5.0); Bilirubin Direct 0.1 mg/dl (0-0.2); Bilirubin,Total 0.5 mg/dl (0.2-1.0); Total Protein 5.6 gm/dl (6.0-8.3)
[2024-12-13] MEDS: AMIODARONE 200 MG TAB PO SCH (08:29)
--- NOTE | 2024-12-13 08:47 | Electrocardiogram Report ---
Test Reason : Blood Pressure : */* mmHG Vent. Rate : 62 BPM Atrial Rate : 62 BPM P-R Int : 254 ms QRS Dur : 146 ms QT Int : 478 ms P-R-T Axes : 67 78 -25 degrees QTcB Int : 485 ms Sinus rhythm with 1st degree A-V block Non-specific intra-ventricular conduction block Possible Old Inferior infarct (cited on or before 29-Jul-2024) Minor ST elevation in Septal leads Abnormal ECG When compared with ECG of 10-Dec-2024 19:30, T wave inversion no longer evident in Anterior leads ST elevation in Septal leads less pronounced Confirmed by Khai Truong ([id number]) on 12/13/2024 8:47:13 AM Referred By: REFERRED SELF Confirmed By: Khai Truong
[2024-12-13 09:03] LABS: Partial Thromboplastin Ratio 1.5; Partial Thromboplastin Time 41 Seconds (21-31)
--- NOTE | 2024-12-13 10:07 | Nephrology Progress Note ---
Date of Service December 13, 2024 Assessment & Plan (1) ESRD on dialysis: (2) Anemia: (3) RLL pneumonia: (4) Elevated troponin: Plan Mrs Diaz is a 79 year old female with ESRD on HD MWF, ASCVD, h/o AMI 2010, CHF, paroxysmal atrial fibrillation, AODM, CLL. Admitted to the hospital on 12/10/24 with an episode of unresponsiveness, concern for STEMI,. Rt LL pneumonia. Also found to have UTI, now on Levaquine. Had rt UE AVF on 12/07/24 and has been having pain and swelling in her right upper extremity including her hands. Doppler showing moderate to severe Stenosis at the arterial anastomosis site with severely elevated flow velocity and stenoses in the mid and distal segments of the brachial artery. Blood pressure has been low. Electrolyte acceptable. --Keep right arm elevated, analgesic as needed for pain control. Waiting on vascular evaluation for Doppler finding of moderate to severe stenosis at the arterial anastomosis site. --dialysis today, plan for 1 L UF as BP has been low and she is close to her EDW --Dose medications for eGFR less than 10 --rt arm precaution Admission and Anticipated Discharge Date Admission Date: December 10, 2024 Srikanth Bardales was seen this morning. Rt UE pain and swelling slightly better today. Doppler showing moderate to severe Stenosis at the arterial anastomosis site. She denies shortness of breath, dizziness lightheadedness. Blood pressure has been low. Volume status acceptable, she is close to her EDW. Tunnel dialysis catheter has been functioning well. Review of Systems Review of Systems: ROS was otherwise unremarkable. Physical Exam Constitutional: WD/WN, vitals as above no acute distress Eyes: + anicteric sclerae Respiratory: no respiratory distress Auscultation: lungs clear to auscultation bilaterally Cardiovascular: RRR, no murmur, no edema Rate/Rhythm: + tachycardic and + irregularly irregular Heart Sounds: normal S1 and normal S2 Extremities: + AV fistula (rt BC ABF with bruit, erythema, tenderness, krystian in place); no edema Skin: no rashes, warm and dry Neurologic: no focal motor deficits Psychiatric: Orientation: alert and oriented x 3 Affect: euthymic affect Results & Data Vital Signs (Past 12 Hours) Vital Signs Temp Pulse Pulse Resp BP Pulse Ox Pulse Ox 12/13/24 08:27 103/49 L 12/13/24 08:13 36.7 C 60 17 86/45 L 93 12/13/24 02:00 94 12/13/24 01:59 37.0 C 60 18 87/58 L 90 12/12/24 23:09 37.1 C 60 18 141/68 H 96 O2 Del Method O2 Del Method 12/13/24 08:27 12/13/24 08:13 Room Air 12/13/24 02:00 Room Air 12/13/24 01:59 Room Air 12/12/24 23:09 Room Air PG Care Time/CCT Total # of Minutes Spent Total Time Spent with Patient: Total time spent is greater than 50% in coordination of care (as documented) at patient's floor/unit and/or counseling patient: Coding Level of Care Code 03948 SUB INP/OBS CARE 2/35MIN Diagnoses ESRD on dialysis N18.6; Z99.2 Anemia D64.9 RLL pneumonia J18.9 Pneumonia type: due to unspecified organism Elevated troponin R79.89 (3) RLL pneumonia Pneumonia type: due to unspecified organism Qualified Code(s): J18.9 - Pneumonia, unspecified organism
[2024-12-13] MEDS: EPOETIN ALFA 10,000 UNITS/ML VIAL IV ONE (10:57)
--- NOTE | 2024-12-13 13:30 | Consultation ---
Date of Consultation December 13, 2024 Assessment & Plan (1) ESRD on dialysis: Pt on HD via IJ permcath, 1 wk s/p R AV graft placement for permanent HD access. No sign of vascular steal on imaging or physical exam. Fingers appear well perfused. Incisions healing well, no sign of infection, will plan to remove st aples in office next week. Please call if needed. History of Present Illness Reason for Consultation: eval RUE AVG Attending Physician: José Edwards MD History of Present Illness 79 yo f with hx of a fib, ESRD on HD, CLL, CAD, ischemic cardiomyopathy, anemia, ICD placement, spinal stenosis, GERD, dyslipidemia, anxiety, admitted with respiratory failure, seen in consultation today regarding her recent RUE AV graft placement. Pt had RUE AV graft placement 1 week ago for permanent HD access. Has been undergoing HD via IJ permcath for some time. Pt states she is having pain in RUE incisions, as well as in her forearm/hand. Pain worse with movement, and painful to touch. Denies discoloration, numbness. Denies BORJAS, fever, chest pain, SOB presently, abd pain, N/V, rest pain, claudication, other complaints. US imaging demonstrates good arterial flow to hand, patent AV graft, and no sign of vascular steal. Allergies Allergy/AdvReac Type Severity Reaction Status Date / Time bee venom protein (honey bee) Allergy Severe Anaphylaxis Verified 12/10/24 20:30 Penicillins Allergy Severe Rash, Verified 12/10/24 20:30 anaphylaxis Sulfa (Sulfonamide Allergy Severe Rash, Verified 12/10/24 20:30 Antibiotics) anaphylaxis pseudoephedrine Allergy Unknown Unknown, Verified 12/10/24 20:30 on file w/ [facility] amlodipine AdvReac Intermediate Palpitation/Headache, Verified 12/10/24 20:30 on file w/ [facility] Home Medications Medication Instructions Recorded Confirmed Type atorvastatin 80 mg tablet (Lipitor) 80 mg PO HS #90 tabs 08/25/23 12/10/24 Rx lancets 31 gauge (Comfort Touch #100 ea 08/25/23 10/05/24 Rx Ultra Thin Lancets) nitroglycerin 0.4 mg sublingual 0.4 mg sublingual UD PRN Chest 08/25/23 12/10/24 Rx tablet (Nitrostat) Pain #25 tabs blood sugar diagnostic (OneTouch #100 ea 09/01/23 10/05/24 Rx Verio test strips) apixaban 2.5 mg tablet (Eliquis) 2.5 mg PO BID #60 tabs 05/24/24 12/10/24 Rx acetaminophen 500 mg tablet 1,000 mg PO Q8H PRN Fever Or Pain 05/25/24 12/10/24 History (Tylenol Extra Strength) albuterol sulfate 90 mcg/actuation 2 puff inhalation Q4H PRN SOB 05/25/24 12/10/24 History aerosol inhaler amiodarone 200 mg tablet 200 mg PO BID 05/25/24 12/10/24 History clopidogrel 75 mg tablet 75 mg PO HS 05/25/24 12/10/24 History metoprolol succinate 25 mg 25 mg PO BID 05/25/24 12/10/24 History tablet,extended release 24 hr cholecalciferol (vitamin D3) 50 2,000 unit PO HS #90 tabs 06/06/24 12/10/24 Rx mcg (2,000 unit) tablet isosorbide mononitrate 30 mg 30 mg PO HS 06/29/24 12/10/24 History tablet,extended release 24 hr lorazepam 0.5 mg tablet 0.5 mg PO BID 06/29/24 12/10/24 History melatonin 5 mg capsule 5 mg PO HS insomnia 06/29/24 12/10/24 History docusate sodium 100 mg tablet 200 mg PO HS 07/27/24 12/10/24 History omeprazole 20 mg tablet,delayed 20 mg PO HS 07/27/24 12/10/24 History release bisacodyl 10 mg rectal suppository 10 mg KS DAILY PRN Constipation 07/29/24 12/10/24 History (Dulcolax (bisacodyl)) fluticasone propionate 50 2 spray intranasal 3XWK 07/29/24 12/10/24 History mcg/actuation nasal spray,suspension sodium phosphates 19 gram-7 118 ml KS DAILY PRN Constipation 07/29/24 12/10/24 History gram/118 mL enema (Fleet Enema) levothyroxine 50 mcg capsule 50 mcg PO .QPM@2100 10/05/24 12/10/24 History acetaminophen 325 mg tablet 650 mg PO 3XWK 11/28/24 12/10/24 History sennosides 8.6 mg tablet (Senokot) 8.6 mg PO QPM 11/28/24 12/10/24 History sertraline 100 mg tablet (Zoloft) 100 mg PO HS 11/28/24 12/10/24 History oxycodone-acetaminophen 5 mg-325 1 tab PO Q6H PRN pain #20 tabs 12/07/24 12/10/24 Rx mg tablet (Percocet) acetaminophen 325 mg tablet 650 mg PO 4XWK 12/10/24 12/10/24 History (Tylenol) aluminum-mag hydroxide-simethicone 30 ml PO Q6H PRN Indigestion 12/10/24 12/10/24 History 400 mg-400 mg-40 mg/5 mL oral susp (Maalox Maximum Strength) cyanocobalamin (vitamin B-12) 1,000 mcg PO HS 12/10/24 12/10/24 History 1,000 mcg tablet (Vitamin B-12) fluticasone propionate 50 2 spray intranasal 4XWK 12/10/24 12/10/24 History mcg/actuation nasal spray,suspension folic acid 1 mg tablet 1 mg PO HS 12/10/24 12/10/24 History promethazine 25 mg tablet 25 mg PO Q6H PRN NAUSEA/VOMITING 12/10/24 12/10/24 History protein supplement 1 ea PO 4XWK 12/10/24 12/10/24 History spironolactone 25 mg tablet 25 mg PO HS 12/10/24 12/10/24 History Patient History Medical History Chronic respiratory failure on continuous O2 per records Mitral regurgitation Moderate to severe MR per 05/2024 ECHO Chronic combined systolic and diastolic CHF (congestive heart failure) EF 20-24% per 05/2024 ECHO Near euvolemic per 10/05/24 HF Clinic visit Chronic anemia Cardiorenal syndrome with renal failure end stage Adult failure to thrive Sepsis due to pneumonia 07/2024 per records possible per centre care readmission list ESRD on dialysis M/W/F at [facility] History of placement of internal cardiac defibrillator 05/12/24 Paroxysmal ventricular tachycardia non-sustained DJD (degenerative joint disease), multiple sites 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 rat exterminator 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 Depression Hypertension Seasonal allergies Cerebral artery occlusion DM2 (diabetes mellitus, type 2) Nausea and vomiting after administration of anesthetic agent Osteoarthritis On anticoagulant therapy Hearing deficit Stroke x3 Hyperlipidemia Atrial fibrillation on Eliquis Myocardial Infarction 2010 & 2018 (cath w/1 stent) Asthma Surgical History S/P dialysis catheter insertion 05/2024 and exchange 10/2024, [facility] AICD (automatic cardioverter/defibrillator) present placed 05/12/24 Hx of cardiac cath 06/19/19, [facility] 05/30/2024, [facility] [place] Hx of cataract surgery B/L H/O heart artery stent HX [place] , STENT X1 2019 History of phacoemulsification of cataract of both eyes with intraocular lens implantation History of dilatation and curettage x3 History of total left knee replacement (TKR) History of right breast biopsy x3--benign History of laparoscopy History of bilateral breast reduction surgery History of colonoscopy Family History Mother Family history of diabetes mellitus Myocardial infarction Family/Other Family history of diabetes mellitus cousin Aunt Breast cancer Father Myocardial infarction Stroke Other No family history of adverse response to anesthesia Denies family history of Ovarian cancer Prostate cancer Colorectal cancer Uterine cancer Social History Smoking Status: Former smoker Tobacco Type: Cigarettes Age Started Using Tobacco: 53; Age Quit Using Tobacco: 62; Cigarettes Per Day: HX OCCASSIONAL CIGARETTE 15 YRS AGO; Hx Alcohol Use: Yes Alcohol type: wine Alcohol Intake Frequency: 2-4 x/Month Hx Substance Use: No Preferred Language: Cameroonian Communication Ability: Effective Visual Impairment: No Limitations Hearing Ability: Use of Hearing Aid Drill Rig Operator Required: No Beliefs That Will Affect Care: None marital status: / Current Living Situation: [facility] Current Living Situation Comment: [facility] resident current occupational status: retired current occupation: worked for [employer] Feels Safe at Home: Yes Safety Concerns: Feels Safe At This Time Childhood Exposure to Second-Hand Smoke: Yes Diet: low salt Diet Comment: low sodium Dental Care, Regularly: Yes Physical Activity Frequency: Does not Exercise Seatbelt Use: always Sunscreen Use: No Assistive Devices: Walker and Wheelchair Review of Systems Review of Systems: All systems reviewed & are unremarkable except as noted in HPI & below Physical Exam Constitutional: WD/WN, vitals as above + frail appearing and cooperative; not in distress Respiratory: normal respiratory effort, lungs clear to auscultation Auscultation: + diminished lung sounds Cardiovascular: Rate/Rhythm: regular rate and regular rhythm Vessels: radial pulses present; + abnormal peripheral pulses Extremities: normal capillary refill and + AV fistula (RUE AV graft faint thrill, incisions c/d/i, no erythema, +mild ecchymosis) RUE palmar arches intact with good flow via doppler. Gastrointestinal (Abdomen): Inspection/Auscultation: abdomen normal to inspection and normal bowel sounds Percussion/Palpation: abdomen soft; abdomen nontender Musculoskeletal: no cyanosis or clubbing, extremities motor strength 5/5 (Pain with movment R hand, tender to touch, no obvious abnormalities) Skin: no rashes, warm and dry Neurologic: moves all extremities, awake and + confused (mildly); no focal motor deficits Psychiatric: Orientation: alert, oriented to person and oriented to place; + not oriented to time Results & Data Vital Signs (Past 12 Hours) Vital Signs Temp Pulse Pulse Pulse Resp BP BP 12/13/24 13:00 60 98/63 L 12/13/24 12:30 60 104/57 L 12/13/24 12:00 60 102/55 L 12/13/24 11:30 60 119/61 12/13/24 11:09 12/13/24 11:00 57 L 101/72 12/13/24 10:30 60 106/54 L 12/13/24 10:00 60 75/36 L 12/13/24 09:55 60 82/30 L 12/13/24 09:50 36.7 C 60 12/13/24 08:27 103/49 L 12/13/24 08:13 36.7 C 60 17 86/45 L 12/13/24 08:00 62 12/13/24 02:00 12/13/24 01:59 37.0 C 60 18 87/58 L Pulse Ox Pulse Ox O2 Del Method O2 Del Method 12/13/24 13:00 12/13/24 12:30 12/13/24 12:00 12/13/24 11:30 12/13/24 11:09 Room Air 12/13/24 11:00 12/13/24 10:30 12/13/24 10:00 12/13/24 09:55 12/13/24 09:50 12/13/24 08:27 12/13/24 08:13 93 Room Air 12/13/24 08:00 12/13/24 02:00 94 Room Air 12/13/24 01:59 90 Room Air
--- NOTE | 2024-12-13 20:08 | Hospitalist Progress Note ---
Date of Service December 13, 2024 Assessment & Plan (1) Right arm pain: (2) AV fistula: (3) Constipation: (4) Acute hypoxemic respiratory failure: (5) Aspiration pneumonia: (6) UTI (urinary tract infection): (7) Elevated troponin: (8) ESRD on dialysis: (9) Pulmonary edema: (10) Transaminitis: (11) Hypotension: (12) Ischemic cardiomyopathy: (13) Nonsustained ventricular tachycardia: (14) ICD (implantable cardioverter-defibrillator) in place: (15) HFrEF (heart failure with reduced ejection fraction): (16) CAD (coronary artery disease): (17) CLL (chronic lymphocytic leukemia): (18) Severe aortic stenosis: (19) Left ventricular aneurysm: Plan 83yo female - HFrEF (EF 25-30%), severe CAD (all 3 epicardial vessels), severe aortic stenosis, ESRD on HD M/W/F, A-fib on Eliquis, ICD/pacemaker status, LV aneurysm, CLL. Presented from [facility] due to unresponsive episode and acute hypoxic resp failure. EMS found her to have oxygen levels in the 80s upon arrival to SNF. By report patient stated she had a fluttering in her chest and nausea prior to the episode. Upon presentation to [facility] found to have a troponin of 5188.[address] segment elevations in the anteroseptal leads with inferior ST depression. Started on heparin drip, amiodarone bolus and drip. Additionally her chest imaging showed right sided pneumonia & pulm edema. Labs revealed elevated LFTs. #acute hypoxic resp failure - * likely 2nd to pneumonia and pulmonary edema * improved s/p HD on 12/11 as well as antibiotics for pneumonia * O2 has been weaned off with stable sats in room air #right-sided pneumonia - * typical vs aspiration vs gram negative all possible * currently on levaquin q48h * stable, improved, minimal symptoms * MRSA screen negative * day #4 of antibiotics today * plan 7 days in total #right arm pain - * most severe pain is distally in the right wrist and right hand * she has evidence of what looks like ulnar nerve compromise leading to her exam findings * description of pain sounds neuropathic (hyperalgesia, intermittent, sharp, etc) * cont oxycodone 2.5mg prn * cont low-dose gabapentin (in light of hepatic dysfunction, advanced age, etc) - 50mg HS, then advance to 50mg BID tomorrow * arterial duplex study of RLE obtained -- no steal phenomenon from her AV fistula; blood flow to the hand is intact; pain is not due to ischemia * recent RUE venous duplex neg for DVT * x-rays of R wrist/hand - no fractures; 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 nerve injury s/p AV fistula creation? other? * will ultimately need PT/OT for the right arm and hand * I don't think she has acute pseudogout of the right hand, but could consider low-dose prednisone (10mg daily for a few days) if pain persists over the location of the CPPD seen on hand x-rays * daughter concerned about gabapentin usage; however, daughter looked up her do se years ago, and she was on 300mg TID in the past * reassured her we have started very low and her ultimate dose will be much lower than what was used in the past #Elevated Troponin / known, severe triple-vessel CAD - * peak HS troponin - 5888 * appreciate [facility] cardiology consultation * STEMI/NSTEMI not suspected * troponin elevation - myocardial demand ischemia in the setting of her acute hypoxic resp failure, pneumonia, UTI, other acute issues * echo with NO changes in comparison to previous echo (slight improvement in EF actually) * Dr Truong states that ST segment elevations can be difficult to interpret in setting of LV aneurysm * repeat EKG today with improved ST segment elevations * pt is not having any ischemic symptoms at this time and did not have any at time of admission * Dr Truong did not recommend heart cath; previous heparin drip d/c; previous amiodarone drip d/c * previous cath - 05/30/24 - LAD 90-100% occlusion, Left Cx 90-100% occlusion, RCA 90-100% occlusion * cont meto succ 25mg BID; imdur 30mg daily; resumed Eliquis 2.5mg BID; statin held due to abnormal LFTs #ICD/pacemaker status - * patient has Medtronic [place] XT device - placed 04/2024 due to VT and depressed LV function * interrogation this admission - nonsustained VT and a.fib with aberrancy; NO SUSTAINED VT seen * had received IV amiodarone bolus then drip - cardiology advised discontinuation * amiodarone 200mg BID - resumed #ESRD on HD - M/W/F - * missed HS session 12/08 * likely pulmonary edema upon admission * s/p HD 12/11 and again today * appreciate nephrology assistance * see "right arm pain" above re: AV fistula #chronic systolic CHF - * appears compensated today * volume control via HD * cont meto succ BID * not a candidate for TRACY/ARB/Entresto/aldactone due to ESRD #klebsiella UTI - * levaquin q48h; plan 7 days of Rx #abnormal LFTs - * 2nd to hepatic congestion/shock liver in setting of hypoperfusion during her unresponsive episode? * 2nd to statin? * 2nd to amiodarone? * other? * holding statin * serial LFTs - levels improved today * RUQ u/s noted (no acute cholecystitis) * appreciate GI consult - nothing to do on their end * repeat LFTs in am tomorrow #constipation - * improved s/p dulcolax suppox yesterday * then miralax daily for bowel maintenance #severe - * not a TAVR candidate * severe * certainly can contribute to syncope but patient was not walking or upright during her episode at the SNF #atrial fibrillation - * cont Eliquis 2.5mg BID * cont amiodarone 200mg BID * cont meto succ 25mg BID * TSH 2.5 in 08/2024 Chronic stable diagnoses: CLL leukocytosis is 2nd to such; follow; repeat CBC am tomorrow hypothyroidism - continue levothyroxine; TSH wnl in 09/05 insomnia - continue melatonin anxiety - continue lorazepam and sertraline GERD - continue PPI daughter extensively updated by phone 12/12/24 and again russel, 12/13/24 by report patient was largely bed or wheelchair bound at [facility] - but patient states she was walking some about 1-2 weeks ago in light of need for therapy for right hand/arm and for generalized conditioning will ask PT/OT to see in consult Admission and Anticipated Discharge Date Admission Date: December 10, 2024 Subjective saw patient while she was in the HD unit getting dialysis main complaint again is that of right arm pain pain is worst in the right hand and modestly in the right wrist still cannot move the fingers normally mild pain in the upper portion of the right arm constipation resolved - has had BMs since yesterday she is dismayed by the right arm/hand/wrist pain Review of Systems Review of Systems: gen - no fevers cv - no chest pain pulm - no dyspnea GI - no N/V musculo - she states she was walking at [facility] 1-2 weeks ago Physical Exam Physical Exam: gen - uncomfortable due to pain in right hand; on the HD machine neck - no JVD mouth - MMM heart - RRR, s1 s2, 3/6 holosystolic murmur RUSB lungs - CTA b/l anterior chest and mid-axillary region; could not listen to bases due to being on HD machine chest - right upper chest HD catheter abd - soft NT ND BS+; no HSM ext - no peripheral edema of legs; right arm - 2 incisions medial aspect of upper arm, clean; generalized swelling of upper right arm; some swelling extending below the right elbow and into the right wrist/hand; no cellulitis any location vascular - perfusion of right hand is normal musculo - ongoing "claw hand" appearance of right hand with all fingers flexed but particularly the 3rd/4th/5th fingers; no synovitis of any finger; ?synovitis of right wrist; handgrip on right still weak; unable to fully extend the fingers of right hand; right wrist flexion/extension mildly improved today psych - recall intact, awake, alert Results & Data Results & Data Vital Signs (Past 12 Hours) Vital Signs Temp Pulse Pulse Resp BP BP Pulse Ox 12/13/24 19:23 36.7 C 60 18 104/50 L 91 12/13/24 17:50 62 101/48 L 12/13/24 15:41 36.9 C 57 L 17 96/61 L 94 12/13/24 13:00 60 98/63 L 12/13/24 12:30 60 104/57 L 12/13/24 12:00 60 102/55 L 12/13/24 11:30 60 119/61 12/13/24 11:09 12/13/24 11:00 57 L 101/72 12/13/24 10:30 60 106/54 L 12/13/24 10:00 60 75/36 L 12/13/24 09:55 60 82/30 L 12/13/24 09:50 36.7 C 60 12/13/24 08:27 103/49 L 12/13/24 08:13 36.7 C 60 17 86/45 L 93 O2 Del Method 12/13/24 19:23 Room Air 12/13/24 17:50 12/13/24 15:41 Room Air 12/13/24 13:00 12/13/24 12:30 12/13/24 12:00 12/13/24 11:30 12/13/24 11:09 Room Air 12/13/24 11:00 12/13/24 10:30 12/13/24 10:00 12/13/24 09:55 12/13/24 09:50 12/13/24 08:27 12/13/24 08:13 Room Air Laboratory Results Laboratory Results - last 24 hr 12/13/24 12/13/24 06:15 08:13 APTT 41 H PTT Ratio 1.5 Total Bilirubin 0.5 Direct Bilirubin 0.1 AST 95 H ALT 198 H Alkaline Phosphatase 126 H Total Protein 5.6 L Albumin 3.1 L PG Care Time/CCT Total # of Minutes Spent Total Time Spent with Patient: Total time spent is greater than 50% in coordination of care (as documented) at patient's floor/unit and/or counseling patient: Coding Level of Care Code 16347 SUB INP/OBS CARE 3/50MIN Diagnoses Right arm pain M79.601 AV fistula I77.0 Constipation K59.00 Acute hypoxemic respiratory failure J96.01 Aspiration pneumonia J69.0 UTI (urinary tract infection) N39.0 Elevated troponin R79.89 ESRD on dialysis N18.6; Z99.2 Pulmonary edema J81.1 Transaminitis R74.01 Hypotension I95.9 Ischemic cardiomyopathy I25.5 Nonsustained ventricular tachycardia I47.29 ICD (implantable cardioverter-defibrillator) in place Z95.810 HFrEF (heart failure with reduced ejection fraction) I50.20 Coronary artery disease involving [place] coronary artery of [place] heart without angina pectoris I25.10 Associated angina: without angina Coronary Disease-Associated Artery/Lesion type: [place] artery [place] vs. transplanted heart: [place] heart CLL (chronic lymphocytic leukemia) C91.10 Severe aortic stenosis I35.0 Left ventricular aneurysm I25.3 (16) CAD (coronary artery disease) Associated angina: without angina Coronary Disease-Associated Artery/Lesion type: [place] artery [place] vs. transplanted heart: [place] heart Qualified Code(s): I25.10 - Atherosclerotic heart disease of [place] coronary artery without angina pectoris
[2024-12-14 08:45] LABS: Hematocrit (blood only) 28.1 % (37.0-47.0); Mean Corpuscular Hemoglobin 32.6 pg (25.0-34.0); Mean Corpuscular Volume 101.8 fL (80.0-100.0); Mean Platelet Volume 9.9 fL (9.4-12.4); Nucleated RBC # (auto) 0.06 K/uL (0.00-0.12); Nucleated RBC % (auto) 0.3 %; Platelet Count 230 K/uL (130-400); RDW Coefficient of Variation 14.9 % (11.5-14.5); Red Blood Count 2.76 M/uL (4.20-5.40); White Blood Count 21.22 K/ul (4.8-10.8)
[2024-12-14 08:56] LABS: Albumin Level 3.1 gm/dl (3.4-5.0); Bilirubin Direct 0.1 mg/dl (0-0.2); Bilirubin,Total 0.5 mg/dl (0.2-1.0)
[2024-12-14 09:02] LABS: Total Protein 5.6 gm/dl (6.0-8.3)
[2024-12-14] MEDS: DOCUSATE SODIUM 100 MG CAP PO PRN (09:04)
[2024-12-14 09:28] LABS: ALC (manual) 13.16 K/uL (1.2-3.4); ANC (manual) 7.21 K/uL (1.4-6.5); Eosinophils # (manual) 0.21 K/uL (0-0.50); Eosinophils % (manual) 1 %; Lymphocytes # (manual) 13.16 K/uL (1.2-3.4); Lymphocytes % (manual) 62 %; Monocytes # (manual) 0.64 K/uL (0.11-0.59); Monocytes % (manual) 3 %; Neutrophils # (manual) 7.21 K/uL (1.40-6.50); Neutrophils % (manual) 34 %
--- NOTE | 2024-12-14 10:20 | Nephrology Progress Note ---
Date of Service December 14, 2024 Assessment & Plan (1) ESRD on dialysis: (2) Anemia: (3) RLL pneumonia: (4) Elevated troponin: Plan Mrs Diaz is a 79 year old female with ESRD on HD MWF, ASCVD, h/o AMI 2010, CHF, paroxysmal atrial fibrillation, AODM, CLL. Admitted to the hospital on 12/10/24 with an episode of unresponsiveness, concern for STEMI,. Rt LL pneumonia. Also found to have UTI, now on Levaquine. Blood pressure has been low. Electrolyte acceptable. --Keep right arm elevated, analgesic as needed for pain control. --dialysis tomorrow --Dose medications for eGFR less than 10 --rt arm precaution Admission and Anticipated Discharge Date Admission Date: December 10, 2024 Subjective Jeffy was seen this morning. Rt UE pain and swelling seems better . Had dialysis yesterday, blood pressure relatively low this morning but otherwise asymptomatic. Electrolyte acceptable. Volume status acceptable, she is close to her EDW. Tunnel dialysis catheter has been functioning well. Review of Systems Review of Systems: ROS was otherwise unremarkable. Physical Exam Constitutional: WD/WN, vitals as above no acute distress Eyes: + anicteric sclerae Respiratory: no respiratory distress Auscultation: lungs clear to auscultation bilaterally Cardiovascular: RRR, no murmur, no edema Rate/Rhythm: + tachycardic and + irregularly irregular Heart Sounds: normal S1 and normal S2 Extremities: + AV fistula (rt BC ABF with bruit, erythema, tenderness, krystian in place); no edema Skin: no rashes, warm and dry Neurologic: no focal motor deficits Psychiatric: Orientation: alert and oriented x 3 Affect: euthymic affect Results & Data Vital Signs (Past 12 Hours) Vital Signs Temp Pulse Pulse Resp BP Pulse Ox O2 Del Method 12/14/24 08:23 67 18 88/49 L 93 Room Air 12/14/24 07:35 60 12/14/24 03:16 36.5 C 60 18 98/46 L 96 Room Air 12/13/24 22:56 66 12/13/24 22:56 36.8 C 60 18 93/39 L 93 Room Air PG Care Time/CCT Total # of Minutes Spent Total Time Spent with Patient: Total time spent is greater than 50% in coordination of care (as documented) at patient's floor/unit and/or counseling patient: Coding Level of Care Code 63610 SUB INP/OBS CARE MIN Diagnoses ESRD on dialysis N18.6; Z99.2 Anemia D64.9 RLL pneumonia J18.9 Pneumonia type: due to unspecified organism Elevated troponin R79.89 (3) RLL pneumonia Pneumonia type: due to unspecified organism Qualified Code(s): J18.9 - Pneumonia, unspecified organism
[2024-12-14] MEDS: GABAPENTIN 250 MG/5 ML 470 ML BTL PO SCH (10:29)
[2024-12-14] MEDS: LORazepam 0.5 MG TAB PO PRN (12:39)
--- NOTE | 2024-12-14 14:47 | Hospitalist Progress Note ---
Date of Service December 14, 2024 Assessment & Plan (1) Right arm pain: (2) AV fistula: (3) Constipation: (4) Acute hypoxemic respiratory failure: (5) Aspiration pneumonia: (6) UTI (urinary tract infection): (7) Elevated troponin: (8) ESRD on dialysis: (9) Pulmonary edema: (10) Transaminitis: (11) Hypotension: (12) Ischemic cardiomyopathy: (13) Nonsustained ventricular tachycardia: (14) ICD (implantable cardioverter-defibrillator) in place: (15) HFrEF (heart failure with reduced ejection fraction): (16) CAD (coronary artery disease): (17) CLL (chronic lymphocytic leukemia): (18) Severe aortic stenosis: (19) Left ventricular aneurysm: Plan 83yo female - HFrEF (EF 25-30%), severe CAD (all 3 epicardial vessels), severe aortic stenosis, ESRD on HD M/W/F, A-fib on Eliquis, ICD/pacemaker status, LV aneurysm, CLL. Presented from [facility] due to unresponsive episode and acute hypoxic resp failure. EMS found her to have oxygen levels in the 80s upon arrival to SNF. By report patient stated she had a fluttering in her chest and nausea prior to the episode. Upon presentation to [facility] found to have a troponin of 5188.[address] segment elevations in the anteroseptal leads with inferior ST depression. Started on heparin drip, amiodarone bolus and drip. Additionally her chest imaging showed right sided pneumonia & pulm edema. Labs revealed elevated LFTs. #acute hypoxic resp failure - * likely 2nd to pneumonia and pulmonary edema * improved s/p HD on 12/11 as well as antibiotics for pneumonia * O2 has been weaned off with stable sats in room air #right-sided pneumonia - * typical vs aspiration vs gram negative all possible * currently on levaquin q48h * stable, improved, minimal symptoms * MRSA screen negative * day #4 of antibiotics today * plan 7 days in total #right arm pain - * most severe pain is distally in the right wrist and right hand * she has evidence of what looks like ulnar nerve compromise leading to her exam findings * description of pain sounds neuropathic (hyperalgesia, intermittent, sharp, etc) * cont oxycodone 2.5mg prn * cont low-dose gabapentin (in light of hepatic dysfunction, advanced age, etc) - 50mg HS, then advance to 50mg BID tomorrow * arterial duplex study of RLE obtained -- no steal phenomenon from her AV fistula; blood flow to the hand is intact; pain is not due to ischemia * recent RUE venous duplex neg for DVT * x-rays of R wrist/hand - no fractures; 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 nerve injury s/p AV fistula creation? other? * will ultimately need PT/OT for the right arm and hand * I don't think she has acute pseudogout of the right hand, but could consider low-dose prednisone (10mg daily for a few days) if pain persists over the location of the CPPD seen on hand x-rays * daughter concerned about gabapentin usage; however, daughter looked up her do se years ago, and she was on 300mg TID in the past * reassured her we have started very low and her ultimate dose will be much lower than what was used in the past #Elevated Troponin / known, severe triple-vessel CAD - * peak HS troponin - 5888 * appreciate [facility] cardiology consultation * STEMI/NSTEMI not suspected * troponin elevation - myocardial demand ischemia in the setting of her acute hypoxic resp failure, pneumonia, UTI, other acute issues * echo with NO changes in comparison to previous echo (slight improvement in EF actually) * Dr Truong states that ST segment elevations can be difficult to interpret in setting of LV aneurysm * repeat EKG today with improved ST segment elevations * pt is not having any ischemic symptoms at this time and did not have any at time of admission * Dr Truong did not recommend heart cath; previous heparin drip d/c; previous amiodarone drip d/c * previous cath - 05/30/24 - LAD 90-100% occlusion, Left Cx 90-100% occlusion, RCA 90-100% occlusion * cont meto succ 25mg BID; imdur 30mg daily; resumed Eliquis 2.5mg BID; statin held due to abnormal LFTs #ICD/pacemaker status - * patient has Medtronic [place] XT device - placed 04/2024 due to VT and depressed LV function * interrogation this admission - nonsustained VT and a.fib with aberrancy; NO SUSTAINED VT seen * had received IV amiodarone bolus then drip - cardiology advised discontinuation * amiodarone 200mg BID - resumed #ESRD on HD - M/W/F - * missed HS session 12/08 * likely pulmonary edema upon admission * s/p HD 12/11 and again today * appreciate nephrology assistance * see "right arm pain" above re: AV fistula #chronic systolic CHF - * appears compensated today * volume control via HD * cont meto succ BID * not a candidate for TRACY/ARB/Entresto/aldactone due to ESRD #klebsiella UTI - * levaquin q48h; plan 7 days of Rx #abnormal LFTs - * 2nd to hepatic congestion/shock liver in setting of hypoperfusion during her unresponsive episode? * 2nd to statin? * 2nd to amiodarone? * other? * holding statin * serial LFTs - levels improved today * RUQ u/s noted (no acute cholecystitis) * appreciate GI consult - nothing to do on their end * repeat LFTs in am tomorrow #constipation - * improved s/p dulcolax suppox yesterday * then miralax daily for bowel maintenance #severe - * not a TAVR candidate * severe * certainly can contribute to syncope but patient was not walking or upright during her episode at the SNF #atrial fibrillation - * cont Eliquis 2.5mg BID * cont amiodarone 200mg BID * cont meto succ 25mg BID * TSH 2.5 in 08/2024 Chronic stable diagnoses: CLL leukocytosis is 2nd to such; follow; repeat CBC am tomorrow hypothyroidism - continue levothyroxine; TSH wnl in 09/05 insomnia - continue melatonin anxiety - continue lorazepam and sertraline GERD - continue PPI daughter extensively updated by phone 12/12/24 and again russel, 12/13/24 spoke to daughter about blood in stool which was painless possibility is that this is internal hemorrhoids patient's daughter wanted GI consultation she was updated on cell #[phone] by report patient was largely bed or wheelchair bound at [facility] - but patient states she was walking some about 1-2 weeks ago in light of need for therapy for right hand/arm and for generalized conditioning will ask PT/OT to see in consult Appreciate gastroenterology input for patient patient will get a flexible sigmoidoscopy tomorrow after dialysis and 2 Fleet enemas Admission and Anticipated Discharge Date Admission Date: December 10, 2024 Subjective Jeffy was seen this morning. Rt UE pain and swelling seems better . Had dialysis yesterday, blood pressure relatively low this morning but otherwise asymptomatic. Electrolyte acceptable. Volume status acceptable, she is close to her EDW. Tunnel dialysis catheter has been functioning well. Review of Systems Review of Systems: gen - no fevers cv - no chest pain pulm - no dyspnea GI - no N/V musculo - she states she was walking at [facility] 1-2 weeks ago Physical Exam Physical Exam: gen - uncomfortable due to pain in right hand; on the HD machine neck - no JVD mouth - MMM heart - RRR, s1 s2, 3/6 holosystolic murmur RUSB lungs - CTA b/l anterior chest and mid-axillary region; could not listen to bases due to being on HD machine chest - right upper chest HD catheter abd - soft NT ND BS+; no HSM ext - no peripheral edema of legs; right arm - 2 incisions medial aspect of upper arm, clean; generalized swelling of upper right arm; some swelling extending below the right elbow and into the right wrist/hand; no cellulitis any location vascular - perfusion of right hand is normal musculo - ongoing "claw hand" appearance of right hand with all fingers flexed but particularly the 3rd/4th/5th fingers; no synovitis of any finger; ?synovitis of right wrist; handgrip on right still weak; unable to fully extend the fingers of right hand; right wrist flexion/extension mildly improved today psych - recall intact, awake, alert Results & Data Results & Data Vital Signs (Past 12 Hours) Vital Signs Temp Pulse Pulse Resp BP Pulse Ox O2 Del Method 12/14/24 11:35 62 17 114/63 92 Room Air 12/14/24 08:23 67 18 88/49 L 93 Room Air 12/14/24 07:35 60 12/14/24 03:16 36.5 C 60 18 98/46 L 96 Room Air PG Care Time/CCT Total # of Minutes Spent Total Time Spent with Patient: Total time spent is greater than 50% in coordination of care (as documented) at patient's floor/unit and/or counseling patient: Coding Level of Care Code 67765 SUB INP/OBS CARE 3/50MIN Diagnoses Right arm pain M79.601 AV fistula I77.0 Constipation K59.00 Acute hypoxemic respiratory failure J96.01 Aspiration pneumonia J69.0 UTI (urinary tract infection) N39.0 Elevated troponin R79.89 ESRD on dialysis N18.6; Z99.2 Pulmonary edema J81.1 Transaminitis R74.01 Hypotension I95.9 Ischemic cardiomyopathy I25.5 Nonsustained ventricular tachycardia I47.29 ICD (implantable cardioverter-defibrillator) in place Z95.810 HFrEF (heart failure with reduced ejection fraction) I50.20 Coronary artery disease involving [place] coronary artery of [place] heart without angina pectoris I25.10 Associated angina: without angina Coronary Disease-Associated Artery/Lesion type: [place] artery [place] vs. transplanted heart: [place] heart CLL (chronic lymphocytic leukemia) C91.10 Severe aortic stenosis I35.0 Left ventricular aneurysm I25.3 (16) CAD (coronary artery disease) Associated angina: without angina Coronary Disease-Associated Artery/Lesion type: [place] artery [place] vs. transplanted heart: [place] heart Qualified Code(s): I25.10 - Atherosclerotic heart disease of [place] coronary artery without angina pectoris
--- NOTE | 2024-12-14 15:56 | Gastrointestinal Consultation ---
Date of Consultation December 14, 2024 Assessment & Plan (1) Abnormal defecation: She is complaining of incomplete evacuation of retained stool versus a foreign sensation in her rectum every day. She states that she cannot empty her bowels and then has to sit on the toilet 20 times a day. She has had 6 bowel movements in the last 2 days but still complains there is a lot of residue left over. She is also noted to have some maroon stools with some blood around him over the past day no drop in her hemoglobin. Her last colonoscopy was in April 2019 and it showed just a single ascending colon polyp with hemorrhoids. She was found to have a partially occlusive Schatzki's ring that was dilated. She complained of similar symptoms with some rectal bleeding in 2020 2021 and was supposed to have a flexible sigmoidoscopy with Dr. Prince but did not get this done My suspicion is that she has dyssynergic defecation or associated pelvic floor dysfunction with constipation. She continues to state that she has something in her rectum and has to sit and push and push all the time. Her past colonoscopy did not reveal a rectal mass but it was 6 years ago. I will do a flexible sigmoidoscopy with very minimal sedation if any tomorrow after 2 fleets enemas. I would like her to get dialyzed in the morning so we can do this in the early afternoon. If her flex sig is negative this is likely due to dyssynergic defecation. She will need fiber supplements continue good bowel regimen and get biofeedback with physical therapy outpatient. Not a lot of options while she is in the hospital. Plan N.p.o. after midnight. Fleets enemas after her dialysis in the morning. Plan for a flex sig in early afternoon without sedation History of Present Illness Reason for Consultation: Rectal pain and maroon stools with incomplete evacuation Requesting Physician: Fermín Minor Attending Physician: Mily Kovacs MD History of Present Illness 83 year old female with history of heart failure with reduced ejection fraction (most recent EF reportedly 25%), three vessel disease, severe aortic stenosis, CKD on dialysis, A-fib on Eliquis s/p pacer. She came into the ED due to an unresponsive episode where she was found not breathing at [facility]. EMS found her to have oxygen levels in the 80s and started her on 4 L nasal cannula. Patient stated she had a fluttering in her chest and nausea prior to the episode. [employer] report showed sustained V. tach. EKG showed T wave inversions in inferior and anterior leads. Patient was found to have a troponin of 5188.4. She was started on heparin drip, amiodarone bolus and drip. LFTs are mildly elevated with AST and ALT in the 200s and they are starting to downtrend. CT and ultrasound showed normal bile duct size with an atrophic pancreas and a small sidebranch IPMN that is 1 cm or less. She is complaining of incomplete evacuation of retained stool versus a foreign sensation in her rectum every day. She states that she cannot empty her bowels and then has to sit on the toilet 20 times a day. She has had 6 bowel movements in the last 2 days but still complains there is a lot of residue left over. She is also noted to have some maroon stools with some blood around him over the past day no drop in her hemoglobin. Her last colonoscopy was in April 2019 and it showed just a single ascending colon polyp with hemorrhoids. She was found to have a partially occlusive Schatzki's ring that was dilated. She complained of similar symptoms with some rectal bleeding in 2020 2021 and was supposed to have a flexible sigmoidoscopy with Dr. Prince but did not get this done Allergies Allergy/AdvReac Type Severity Reaction Status Date / Time bee venom protein (honey bee) Allergy Severe Anaphylaxis Verified 12/10/24 20:30 Penicillins Allergy Severe Rash, Verified 12/10/24 20:30 anaphylaxis Sulfa (Sulfonamide Allergy Severe Rash, Verified 12/10/24 20:30 Antibiotics) anaphylaxis pseudoephedrine Allergy Unknown Unknown, Verified 12/10/24 20:30 on file w/ [facility] amlodipine AdvReac Intermediate Palpitation/Headache, Verified 12/10/24 20:30 on file w/ [facility] Home Medications Medication Instructions Recorded Confirmed Type atorvastatin 80 mg tablet (Lipitor) 80 mg PO HS #90 tabs 08/25/23 12/10/24 Rx lancets 31 gauge (Comfort Touch #100 ea 08/25/23 10/05/24 Rx Ultra Thin Lancets) nitroglycerin 0.4 mg sublingual 0.4 mg sublingual UD PRN Chest 08/25/23 12/10/24 Rx tablet (Nitrostat) Pain #25 tabs blood sugar diagnostic (OneTouch #100 ea 09/01/23 10/05/24 Rx Verio test strips) apixaban 2.5 mg tablet (Eliquis) 2.5 mg PO BID #60 tabs 05/24/24 12/10/24 Rx acetaminophen 500 mg tablet 1,000 mg PO Q8H PRN Fever Or Pain 05/25/24 12/10/24 History (Tylenol Extra Strength) albuterol sulfate 90 mcg/actuation 2 puff inhalation Q4H PRN SOB 05/25/24 12/10/24 History aerosol inhaler amiodarone 200 mg tablet 200 mg PO BID 05/25/24 12/10/24 History clopidogrel 75 mg tablet 75 mg PO HS 05/25/24 12/10/24 History metoprolol succinate 25 mg 25 mg PO BID 05/25/24 12/10/24 History tablet,extended release 24 hr cholecalciferol (vitamin D3) 50 2,000 unit PO HS #90 tabs 06/06/24 12/10/24 Rx mcg (2,000 unit) tablet isosorbide mononitrate 30 mg 30 mg PO HS 06/29/24 12/10/24 History tablet,extended release 24 hr lorazepam 0.5 mg tablet 0.5 mg PO BID 06/29/24 12/10/24 History melatonin 5 mg capsule 5 mg PO HS insomnia 06/29/24 12/10/24 History docusate sodium 100 mg tablet 200 mg PO HS 07/27/24 12/10/24 History omeprazole 20 mg tablet,delayed 20 mg PO HS 07/27/24 12/10/24 History release bisacodyl 10 mg rectal suppository 10 mg [place] DAILY PRN Constipation 07/29/24 12/10/24 History (Dulcolax (bisacodyl)) fluticasone propionate 50 2 spray intranasal 3XWK 07/29/24 12/10/24 History mcg/actuation nasal spray,suspension sodium phosphates 19 gram-7 118 ml [place] DAILY PRN Constipation 07/29/24 12/10/24 History gram/118 mL enema (Fleet Enema) levothyroxine 50 mcg capsule 50 mcg PO .QPM@2100 10/05/24 12/10/24 History acetaminophen 325 mg tablet 650 mg PO 3XWK 11/28/24 12/10/24 History sennosides 8.6 mg tablet (Senokot) 8.6 mg PO QPM 11/28/24 12/10/24 History sertraline 100 mg tablet (Zoloft) 100 mg PO HS 11/28/24 12/10/24 History oxycodone-acetaminophen 5 mg-325 1 tab PO Q6H PRN pain #20 tabs 12/07/24 12/10/24 Rx mg tablet (Percocet) acetaminophen 325 mg tablet 650 mg PO 4XWK 12/10/24 12/10/24 History (Tylenol) aluminum-mag hydroxide-simethicone 30 ml PO Q6H PRN Indigestion 12/10/24 12/10/24 History 400 mg-400 mg-40 mg/5 mL oral susp (Maalox Maximum Strength) cyanocobalamin (vitamin B-12) 1,000 mcg PO HS 12/10/24 12/10/24 History 1,000 mcg tablet (Vitamin B-12) fluticasone propionate 50 2 spray intranasal 4XWK 12/10/24 12/10/24 History mcg/actuation nasal spray,suspension folic acid 1 mg tablet 1 mg PO HS 12/10/24 12/10/24 History promethazine 25 mg tablet 25 mg PO Q6H PRN NAUSEA/VOMITING 12/10/24 12/10/24 History protein supplement 1 ea PO 4XWK 12/10/24 12/10/24 History spironolactone 25 mg tablet 25 mg PO HS 12/10/24 12/10/24 History Patient History Medical History Chronic respiratory failure on continuous O2 per records Mitral regurgitation Moderate to severe MR per 05/2024 ECHO Chronic combined systolic and diastolic CHF (congestive heart failure) EF 20-24% per 05/2024 ECHO Near euvolemic per 10/05/24 HF Clinic visit Chronic anemia Cardiorenal syndrome with renal failure end stage Adult failure to thrive Sepsis due to pneumonia 07/2024 per records possible per [facility] readmission list ESRD on dialysis M/W/F at [facility] History of placement of internal cardiac defibrillator 05/12/24 Paroxysmal ventricular tachycardia non-sustained DJD (degenerative joint disease), multiple sites 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 chcf 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 Depression Hypertension Seasonal allergies Cerebral artery occlusion DM2 (diabetes mellitus, type 2) Nausea and vomiting after administration of anesthetic agent Osteoarthritis On anticoagulant therapy Hearing deficit Stroke x3 Hyperlipidemia Atrial fibrillation on Eliquis Myocardial Infarction 2010 & 2018 (cath w/1 stent) Asthma Surgical History S/P dialysis catheter insertion 05/2024 and exchange 10/2024, [facility] AICD (automatic cardioverter/defibrillator) present placed 05/12/24 Hx of cardiac cath 06/19/19, [facility] 05/30/2024, [facility] [place] Hx of cataract surgery B/L H/O heart artery stent HX CO , STENT X1 2019 History of phacoemulsification of cataract of both eyes with intraocular lens implantation History of dilatation and curettage x3 History of total left knee replacement (TKR) History of right breast biopsy x3--benign History of laparoscopy History of bilateral breast reduction surgery History of colonoscopy Family History Mother Family history of diabetes mellitus Myocardial infarction Family/Other Family history of diabetes mellitus cousin Aunt Breast cancer Father Myocardial infarction Stroke Other No family history of adverse response to anesthesia Denies family history of Ovarian cancer Prostate cancer Colorectal cancer Uterine cancer Social History Smoking Status: Former smoker Tobacco Type: Cigarettes Age Started Using Tobacco: 53; Age Quit Using Tobacco: 62; Cigarettes Per Day: HX OCCASSIONAL CIGARETTE 15 YRS AGO; Hx Alcohol Use: Yes Alcohol type: wine Alcohol Intake Frequency: 2-4 x/Month Hx Substance Use: No Preferred Language: Citizen Of [place] Communication Ability: Effective Visual Impairment: No Limitations Hearing Ability: Use of Hearing Aid 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 Required: No Beliefs That Will Affect Care: None marital status: / Current Living Situation: Correction Current Living Situation Comment: [facility] current occupational status: retired current occupation: worked for [employer] Feels Safe at Home: Yes Safety Concerns: Feels Safe At This Time Childhood Exposure to Second-Hand Smoke: Yes Diet: low salt Diet Comment: low sodium Dental Care, Regularly: Yes Physical Activity Frequency: Does not Exercise Seatbelt Use: always Sunscreen Use: No Assistive Devices: Walker and Wheelchair Review of Systems Review of Systems: All systems reviewed & are unremarkable except as noted in HPI & below Physical Exam Physical Exam: Physical Exam: General: Well nourished and well developed in NAD HEENT: EOMI, PERRL Neck: trachea midline, no lad Lungs: CTA b, bilateral bs present Heart: RRR, 1/6 hsm with some distant hs Abd: soft, NT/ND, NABS, deffered rectal as uncomfortable today. Musculoskeletal: no c/c/e, normal strength B Neuro: CN2-12 intact, normal gait, normal strength Psych: normal affect and mood, euthymic. Results & Data Vital Signs (Past 12 Hours) Vital Signs Pulse Pulse Resp BP Pulse Ox O2 Del Method 12/14/24 14:00 60 12/14/24 11:35 62 17 114/63 92 Room Air 12/14/24 08:23 67 18 88/49 L 93 Room Air 12/14/24 07:35 60 PG Care Time/CCT Total # of Minutes Spent Total Time Spent with Patient: Total time spent is greater than 50% in coordination of care (as documented) at patient's floor/unit and/or counseling patient: Coding Level of Care Code 83769 INT INP/OBS CARE 3/75MIN Diagnoses Abnormal defecation R19.8
--- NOTE | 2024-12-15 09:56 | Nephrology Progress Note ---
Date of Service December 15, 2024 Assessment & Plan (1) ESRD on dialysis: (2) Anemia: (3) RLL pneumonia: (4) Elevated troponin: Plan Mrs Diaz is a 79 year old female with ESRD on HD MWF, ASCVD, h/o AMI 2010, CHF, paroxysmal atrial fibrillation, AODM, CLL. Admitted to the hospital on 12/10/24 with an episode of unresponsiveness, concern for STEMI,. Rt LL pneumonia. Also found to have UTI, now on Levaquin. Blood pressure better today, tolerating UF goal of 1.5 L. Electrolyte acceptable. Hb was stable yesterday, denies any new active GI bleeding --will check CBC and electrolyte, dialysis with 2 K bath, UF 1.5 L if BP tolerates. --Dose medications for eGFR less than 10 --rt arm precaution, keep elevated, analgesic as needed for pain control. Admission and Anticipated Discharge Date Admission Date: December 10, 2024 Subjective Jeffy was seen and evaluated during hemodialysis this morning. Rt UE pain and swelling improved. She reports rash and spots in right hand but exam was unremarkable. Tolerating dialysis, blood pressure relatively stable. Volume status acceptable, she is close to her EDW. Tunnel dialysis catheter has been f unctioning well. Review of Systems Review of Systems: ROS was otherwise unremarkable. Physical Exam Constitutional: WD/WN, vitals as above no acute distress Eyes: + anicteric sclerae Respiratory: no respiratory distress Auscultation: lungs clear to auscultation bilaterally Cardiovascular: RRR, no murmur, no edema Rate/Rhythm: + tachycardic and + irregularly irregular Heart Sounds: normal S1 and normal S2 Extremities: + AV fistula (rt BC ABF with bruit, erythema, tenderness, krystian in place); no edema Skin: no rashes, warm and dry Neurologic: no focal motor deficits Psychiatric: Orientation: alert and oriented x 3 Affect: euthymic affect Results & Data Vital Signs (Past 12 Hours) Vital Signs Temp Pulse Resp BP Pulse Ox O2 Del Method 12/15/24 08:20 36.7 C 60 17 107/68 96 Room Air 12/15/24 08:02 36.6 C 60 20 122/66 90 Room Air 12/15/24 02:25 36.8 C 60 18 117/67 93 Room Air 12/14/24 22:11 36.5 C 60 18 111/86 96 Room Air PG Care Time/CCT Total # of Minutes Spent Total Time Spent with Patient: Total time spent is greater than 50% in coordination of care (as documented) at patient's floor/unit and/or counseling patient: Coding Level of Care Code 54801 SUB INP/OBS CARE 2/35MIN Diagnoses ESRD on dialysis N18.6; Z99.2 Anemia D64.9 RLL pneumonia J18.9 Pneumonia type: due to unspecified organism Elevated troponin R79.89 (3) RLL pneumonia Pneumonia type: due to unspecified organism Qualified Code(s): J18.9 - Pneumonia, unspecified organism
[2024-12-15 10:07] LABS: BUN Creatinine Ratio 10.7 (10-20); Calcium 8.7 mg/dl (8.6-10.3); Creatinine Clr Calc Pharmacy 8.8 ml/min; Potassium 4.4 mmol/L (3.5-5.1)
[2024-12-15 10:16] LABS: Hematocrit (blood only) 25.7 % (37.0-47.0); Hemoglobin 8.5 g/dl (12.0-16.0); Mean Corpuscular Hemoglobin 33.6 pg (25.0-34.0); Mean Corpuscular Hgb Conc 33.1 g/dL (32.0-36.0); Mean Corpuscular Volume 101.6 fL (80.0-100.0); Mean Platelet Volume 9.8 fL (9.4-12.4); Nucleated RBC # (auto) 0.06 K/uL (0.00-0.12); Nucleated RBC % (auto) 0.3 %; Platelet Count 229 K/uL (130-400); RDW Coefficient of Variation 15.1 % (11.5-14.5); RDW Standard Deviation 55.1 fL (36.4-46.3); Red Blood Count 2.53 M/uL (4.20-5.40); White Blood Count 21.91 K/ul (4.8-10.8)
[2024-12-15] MEDS: EPOETIN ALFA 10,000 UNITS/ML VIAL IV STA (11:53)
--- NOTE | 2024-12-15 11:57 | Gastroenterology Progress Note ---
Date of Service December 15, 2024 Assessment & Plan (1) Abnormal defecation: Plan Patient is now declining to have a Flex sig. she does not want to have any invasive testing. Her symptoms sound like a component of dyssynergic defecation. - recommend fiber supplementation. - okay to use stool softeners / miralax for harder stools as needed. - will get her set up for pelvic floor therapy as an outpatient. Admission and Anticipated Discharge Date Admission Date: December 10, 2024 Supervising Physician Co-Signing Physician Notes I personally saw and examined the patient. I have reviewed the chart and agree with the documentation provided by the SAP F[employer] BUSINESS ANALYST including discussion about the assessment, treatment and plan. Briefly, she had a negative colonoscopy in 2019 I think is very reasonable to not repeat a flex sig now, especially as she is not interested in any invasive procedures. Her symptoms are classic for dyssynergy defecation, she admits to using rubber gloves and disimpacting herself multiple times. She needs to use fiber MiraLAX and get PT outpatient with biofeedback. We will arrange this for her outpatient. GI will sign off please call us with any questions. Subjective Patient was planned to have Flex sig today, but she has decided she does not want any invasive testing at this time. she admits that she has had issues with what sounds like dyssynergic defecation that has been ongoing for a long time. Has several small bowel movements daily. no other GI concerns currently. Review of Systems Review of Systems: All systems reviewed & are unremarkable except as noted in HPI & below Physical Exam Constitutional: WD/WN, vitals as above Respiratory: normal respiratory effort, lungs clear to auscultation Cardiovascular: Rate/Rhythm: regular rate and regular rhythm Gastrointestinal (Abdomen): normal bowel sounds, soft, nontender, no hepatosplenomegaly Psychiatric: Orientation: alert and oriented x 3 Results & Data Results & Data Vital Signs (Past 12 Hours) Vital Signs Temp Pulse Pulse Pulse Resp BP BP 12/15/24 11:30 60 122/61 12/15/24 11:00 60 108/53 L 12/15/24 10:30 52 L 107/92 12/15/24 10:00 60 126/64 12/15/24 09:30 60 112/61 12/15/24 09:06 60 101/59 L 12/15/24 09:00 97.7 F 60 12/15/24 08:20 98.1 F 60 17 107/68 12/15/24 08:02 97.9 F 60 20 122/66 12/15/24 02:25 98.2 F 60 18 117/67 Pulse Ox O2 Del Method 12/15/24 11:30 12/15/24 11:00 12/15/24 10:30 12/15/24 10:00 12/15/24 09:30 12/15/24 09:06 12/15/24 09:00 12/15/24 08:20 96 Room Air 12/15/24 08:02 90 Room Air 12/15/24 02:25 93 Room Air Coding Level of Care Code 03864 SUB INP/OBS CARE 10/07MIN Diagnoses Abnormal defecation R19.8
--- NOTE | 2024-12-15 14:29 | Hospitalist Progress Note ---
Date of Service December 15, 2024 Assessment & Plan (1) Right arm pain: (2) AV fistula: (3) Constipation: (4) Acute hypoxemic respiratory failure: (5) Aspiration pneumonia: (6) UTI (urinary tract infection): (7) Elevated troponin: (8) ESRD on dialysis: (9) Pulmonary edema: (10) Transaminitis: (11) Hypotension: (12) Ischemic cardiomyopathy: (13) Nonsustained ventricular tachycardia: (14) ICD (implantable cardioverter-defibrillator) in place: (15) HFrEF (heart failure with reduced ejection fraction): (16) CAD (coronary artery disease): (17) CLL (chronic lymphocytic leukemia): (18) Severe aortic stenosis: (19) Left ventricular aneurysm: Plan 83yo female - HFrEF (EF 25-30%), severe CAD (all 3 epicardial vessels), severe aortic stenosis, ESRD on HD M/W/F, A-fib on Eliquis, ICD/pacemaker status, LV aneurysm, CLL. Presented from [facility] due to unresponsive episode and acute hypoxic resp failure. EMS found her to have oxygen levels in the 80s upon arrival to SNF. By report patient stated she had a fluttering in her chest and nausea prior to the episode. Upon presentation to [facility] found to have a troponin of 5188.[address] segment elevations in the anteroseptal leads with inferior ST depression. Started on heparin drip, amiodarone bolus and drip. Additionally her chest imaging showed right sided pneumonia & pulm edema. Labs revealed elevated LFTs. #acute hypoxic resp failure - * likely 2nd to pneumonia and pulmonary edema * improved s/p HD on 12/11 as well as antibiotics for pneumonia * O2 has been weaned off with stable sats in room air #right-sided pneumonia - * typical vs aspiration vs gram negative all possible * currently on levaquin q48h * stable, improved, minimal symptoms * MRSA screen negative * day #6 of antibiotics today * plan 7 days in total #right arm pain - * most severe pain is distally in the right wrist and right hand * she has evidence of what looks like ulnar nerve compromise leading to her exam findings * description of pain sounds neuropathic (hyperalgesia, intermittent, sharp, etc) * cont oxycodone 2.5mg prn * cont low-dose gabapentin (in light of hepatic dysfunction, advanced age, etc) - 50mg HS, then advance to 50mg BID tomorrow * arterial duplex study of RLE obtained -- no steal phenomenon from her AV fistula; blood flow to the hand is intact; pain is not due to ischemia * recent RUE venous duplex neg for DVT * x-rays of R wrist/hand - no fractures; 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 nerve injury s/p AV fistula creation? other? * will ultimately need PT/OT for the right arm and hand * I don't think she has acute pseudogout of the right hand, but could consider low-dose prednisone (10mg daily for a few days) if pain persists over the location of the CPPD seen on hand x-rays * daughter concerned about gabapentin usage; however, daughter looked up her do se years ago, and she was on 300mg TID in the past * reassured her we have started very low and her ultimate dose will be much lower than what was used in the past #Elevated Troponin / known, severe triple-vessel CAD - * peak HS troponin - 5888 * appreciate [facility] cardiology consultation * STEMI/NSTEMI not suspected * troponin elevation - myocardial demand ischemia in the setting of her acute hypoxic resp failure, pneumonia, UTI, other acute issues * echo with NO changes in comparison to previous echo (slight improvement in EF actually) * Dr Truong states that ST segment elevations can be difficult to interpret in setting of LV aneurysm * repeat EKG today with improved ST segment elevations * pt is not having any ischemic symptoms at this time and did not have any at time of admission * Dr Truong did not recommend heart cath; previous heparin drip d/c; previous amiodarone drip d/c * previous cath - 05/30/24 - LAD 90-100% occlusion, Left Cx 90-100% occlusion, RCA 90-100% occlusion * cont meto succ 25mg BID; imdur 30mg daily; resumed Eliquis 2.5mg BID; statin held due to abnormal LFTs #ICD/pacemaker status - * patient has [employer]onic [place] XT device - placed 04/2024 due to VT and depressed LV function * interrogation this admission - nonsustained VT and a.fib with aberrancy; NO SUSTAINED VT seen * had received IV amiodarone bolus then drip - cardiology advised discontinuation * amiodarone 200mg BID - resumed #ESRD on HD - M/W/F - * missed HS session 12/08 * likely pulmonary edema upon admission * s/p HD 12/11 and again today * appreciate nephrology assistance * see "right arm pain" above re: AV fistula #chronic systolic CHF - * appears compensated today * volume control via HD * cont meto succ BID * not a candidate for TRACY/ARB/Entresto/aldactone due to ESRD #klebsiella UTI - * levaquin q48h; plan 7 days of Rx #abnormal LFTs - * 2nd to hepatic congestion/shock liver in setting of hypoperfusion during her unresponsive episode? * 2nd to statin? * 2nd to amiodarone? * other? * holding statin * serial LFTs - levels improved today * RUQ u/s noted (no acute cholecystitis) * appreciate GI consult - nothing to do on their end * repeat LFTs in am tomorrow #constipation - * improved s/p dulcolax suppox yesterday * then miralax daily for bowel maintenance #severe - * not a TAVR candidate * severe * certainly can contribute to syncope but patient was not walking or upright during her episode at the SNF #atrial fibrillation - * cont Eliquis 2.5mg BID * cont amiodarone 200mg BID * cont meto succ 25mg BID * TSH 2.5 in 08/2024 Chronic stable diagnoses: CLL leukocytosis is 2nd to such; follow; repeat CBC am tomorrow hypothyroidism - continue levothyroxine; TSH wnl in 09/05 insomnia - continue melatonin anxiety - continue lorazepam and sertraline GERD - continue PPI daughter extensively updated by phone 12/12/24 , 12/13/24 , and 0n 12/14/24 spoke to daughter about blood in stool which was painless possibility is that this is internal hemorrhoids patient's daughter wanted GI consultation she was updated on cell #[phone] Patient refused to get colonoscopy or sigmoidoscopy done by report patient was largely bed or wheelchair bound at [facility] - but patient states she was walking some about 1-2 weeks ago in light of need for therapy for right hand/arm and for generalized conditioning will ask PT/OT to see in consult Appreciate gastroenterology input for patient after patient declined sigmoidoscopy she needs to follow-up outpatient for pelvic floor therapy physical therapy and use of fiber Admission and Anticipated Discharge Date Admission Date: December 10, 2024 Subjective Patient got a trach this morning and she refused flexible sigmoidoscopy she got hemodialysis her hand is feeling a little better prior to my visit she was complaining of 10 out of 10 pain in her right arm but looks like her arm is not swollen not red not hot and not tender at this time Review of Systems Review of Systems: gen - no fevers cv - no chest pain pulm - no dyspnea GI - no N/V musculo - she states she was walking at [facility] 1-2 weeks ago Physical Exam Physical Exam: gen - uncomfortable due to pain in right hand; on the HD machine neck - no JVD mouth - MMM heart - RRR, s1 s2, 3/6 holosystolic murmur RUSB lungs - CTA b/l anterior chest and mid-axillary region; could not listen to bases due to being on HD machine chest - right upper chest HD catheter abd - soft NT ND BS+; no HSM ext - no peripheral edema of legs; right arm - 2 incisions medial aspect of upper arm, clean; generalized swelling of upper right arm; some swelling extending below the right elbow and into the right wrist/hand; no cellulitis any location vascular - perfusion of right hand is normal musculo - ongoing "claw hand" appearance of right hand with all fingers flexed but particularly the 3rd/4th/5th fingers; no synovitis of any finger; ?synovitis of right wrist; handgrip on right still weak; unable to fully extend the fingers of right hand; right wrist flexion/extension mildly improved today psych - recall intact, awake, alert Results & Data Results & Data Vital Signs (Past 12 Hours) Vital Signs Temp Pulse Pulse Pulse Resp BP BP 12/15/24 12:10 36.5 C 60 110/61 12/15/24 12:00 61 114/66 12/15/24 11:30 60 122/61 12/15/24 11:00 60 108/53 L 12/15/24 10:30 52 L 107/92 12/15/24 10:00 60 126/64 12/15/24 09:30 60 112/61 12/15/24 09:06 60 101/59 L 12/15/24 09:00 36.5 C 60 12/15/24 08:20 36.7 C 60 17 107/68 12/15/24 08:02 36.6 C 60 20 122/66 Pulse Ox O2 Del Method 12/15/24 12:10 12/15/24 12:00 12/15/24 11:30 12/15/24 11:00 12/15/24 10:30 12/15/24 10:00 12/15/24 09:30 12/15/24 09:06 12/15/24 09:00 12/15/24 08:20 96 Room Air 12/15/24 08:02 90 Room Air PG Care Time/CCT Total # of Minutes Spent Total Time Spent with Patient: Total time spent is greater than 50% in coordination of care (as documented) at patient's floor/unit and/or counseling patient: Coding Level of Care Code 99503 SUB INP/OBS CARE 3/50MIN Diagnoses Right arm pain M79.601 AV fistula I77.0 Constipation K59.00 Acute hypoxemic respiratory failure J96.01 Aspiration pneumonia J69.0 UTI (urinary tract infection) N39.0 Elevated troponin R79.89 ESRD on dialysis N18.6; Z99.2 Pulmonary edema J81.1 Transaminitis R74.01 Hypotension I95.9 Ischemic cardiomyopathy I25.5 Nonsustained ventricular tachycardia I47.29 ICD (implantable cardioverter-defibrillator) in place Z95.810 HFrEF (heart failure with reduced ejection fraction) I50.20 Coronary artery disease involving [place] coronary artery of [place] heart without angina pectoris I25.10 Coronary Disease-Associated Artery/Lesion type: [place] artery [place] vs. transplanted heart: [place] heart Associated angina: without angina CLL (chronic lymphocytic leukemia) C91.10 Severe aortic stenosis I35.0 Left ventricular aneurysm I25.3 (16) CAD (coronary artery disease) Coronary Disease-Associated Artery/Lesion type: [place] artery [place] vs. transplanted heart: [place] heart Associated angina: without angina Qualified Code(s): I25.10 - Atherosclerotic heart disease of [place] coronary artery without angina pectoris
[2024-12-16] MEDS: ACETAMINOPHEN 325 MG TAB PO PRN (10:38)
--- NOTE | 2024-12-16 11:10 | Nephrology Progress Note ---
Date of Service December 16, 2024 Assessment & Plan (1) ESRD on dialysis: (2) Anemia: (3) RLL pneumonia: (4) Elevated troponin: Plan Mrs Diaz is a 79 year old female with ESRD on HD MWF, ASCVD, h/o AMI 2010, CHF, paroxysmal atrial fibrillation, AODM, CLL. Admitted to the hospital on 12/10/24 with an episode of unresponsiveness, concern for STEMI,. Rt LL pneumonia. Also found to have UTI, now on Levaquin. Blood pressure better today. Hb was stable , denies any new active GI bleeding, she refused flexible sigmoidoscopy yesterday. Received Epogen yesterday. --Next dialysis Wednesday --Dose medications for eGFR less than 10 --rt arm precaution. Admission and Anticipated Discharge Date Admission Date: December 10, 2024 Srikanth Oquendo was seen and evaluated this morning. She looks otherwise well, denies any symptoms. She feels she is ready to go home. Vital signs stable. Had dialysis yesterday, tolerated well. Review of Systems Review of Systems: Detailed review of system otherwise unremarkable. Physical Exam Constitutional: WD/WN, vitals as above no acute distress Eyes: + anicteric sclerae Respiratory: no respiratory distress Auscultation: lungs clear to auscultation bilaterally Cardiovascular: RRR, no murmur, no edema Rate/Rhythm: + irregularly irregular Heart Sounds: normal S1 and normal S2 Extremities: + AV fistula (rt BC ABF with bruit, krystian in place); no edema Skin: no rashes, warm and dry Neurologic: no focal motor deficits Psychiatric: Orientation: alert and oriented x 3 Affect: euthymic affect Results & Data Vital Signs (Past 12 Hours) Vital Signs Temp Pulse Pulse Pulse Resp BP Pulse Ox 12/16/24 08:00 36.7 C 60 17 103/65 96 12/16/24 07:00 61 12/16/24 07:00 12/16/24 03:54 36.8 C 58 L 17 103/58 L 93 12/16/24 00:08 37.2 C 59 L 17 103/61 92 12/16/24 00:00 60 O2 Del Method 12/16/24 08:00 Room Air 12/16/24 07:00 12/16/24 07:00 Room Air 12/16/24 03:54 Room Air 12/16/24 00:08 Room Air 12/16/24 00:00 PG Care Time/CCT Total # of Minutes Spent Total Time Spent with Patient: Total time spent is greater than 50% in coordination of care (as documented) at patient's floor/unit and/or counseling patient: Coding Level of Care Code 40371 SUB INP/OBS CARE 2/35MIN Diagnoses ESRD on dialysis N18.6; Z99.2 Anemia D64.9 RLL pneumonia J18.9 Pneumonia type: due to unspecified organism Elevated troponin R79.89 (3) RLL pneumonia Pneumonia type: due to unspecified organism Qualified Code(s): J18.9 - Pneumonia, unspecified organism
--- NOTE | 2024-12-16 18:17 | Hospitalist Progress Note ---
Date of Service December 16, 2024 Assessment & Plan (1) Right arm pain: (2) AV fistula: (3) Constipation: (4) Acute hypoxemic respiratory failure: (5) Aspiration pneumonia: (6) UTI (urinary tract infection): (7) Elevated troponin: (8) ESRD on dialysis: (9) Pulmonary edema: (10) Transaminitis: (11) Hypotension: (12) Ischemic cardiomyopathy: (13) Nonsustained ventricular tachycardia: (14) ICD (implantable cardioverter-defibrillator) in place: (15) HFrEF (heart failure with reduced ejection fraction): (16) CAD (coronary artery disease): (17) CLL (chronic lymphocytic leukemia): (18) Severe aortic stenosis: (19) Left ventricular aneurysm: Plan 83yo female - HFrEF (EF 25-30%), severe CAD (all 3 epicardial vessels), severe aortic stenosis, ESRD on HD M/W/F, A-fib on Eliquis, ICD/pacemaker status, LV aneurysm, CLL. Presented from [facility] due to unresponsive episode and acute hypoxic resp failure. EMS found her to have oxygen levels in the 80s upon arrival to SNF. By report patient stated she had a fluttering in her chest and nausea prior to the episode. Upon presentation to [facility] found to have a troponin of 5188.[address] segment elevations in the anteroseptal leads with inferior ST depression. Started on heparin drip, amiodarone bolus and drip. Additionally her chest imaging showed right sided pneumonia & pulm edema. Labs revealed elevated LFTs. #acute hypoxic resp failure - * likely 2nd to pneumonia and pulmonary edema * improved s/p HD on 12/11 as well as antibiotics for pneumonia * O2 has been weaned off with stable sats in room air #right-sided pneumonia - * typical vs aspiration vs gram negative all possible * currently on levaquin q48h * stable, improved, minimal symptoms * MRSA screen negative * day #6 of antibiotics today * plan 7 days in total #right arm pain - * most severe pain is distally in the right wrist and right hand * she has evidence of what looks like ulnar nerve compromise leading to her exam findings * description of pain sounds neuropathic (hyperalgesia, intermittent, sharp, etc) * cont oxycodone 2.5mg prn * cont low-dose gabapentin (in light of hepatic dysfunction, advanced age, etc) - 50mg HS, then advance to 50mg BID tomorrow * arterial duplex study of RLE obtained -- no steal phenomenon from her AV fistula; blood flow to the hand is intact; pain is not due to ischemia * recent RUE venous duplex neg for DVT * x-rays of R wrist/hand - no fractures; 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 nerve injury s/p AV fistula creation? other? * will ultimately need PT/OT for the right arm and hand * I don't think she has acute pseudogout of the right hand, but could consider low-dose prednisone (10mg daily for a few days) if pain persists over the location of the CPPD seen on hand x-rays * daughter concerned about gabapentin usage; however, daughter looked up her do se years ago, and she was on 300mg TID in the past * reassured her we have started very low and her ultimate dose will be much lower than what was used in the past #Elevated Troponin / known, severe triple-vessel CAD - * peak HS troponin - 5888 * appreciate [facility] cardiology consultation * STEMI/NSTEMI not suspected * troponin elevation - myocardial demand ischemia in the setting of her acute hypoxic resp failure, pneumonia, UTI, other acute issues * echo with NO changes in comparison to previous echo (slight improvement in EF actually) * Dr Truong states that ST segment elevations can be difficult to interpret in setting of LV aneurysm * repeat EKG today with improved ST segment elevations * pt is not having any ischemic symptoms at this time and did not have any at time of admission * Dr Truong did not recommend heart cath; previous heparin drip d/c; previous amiodarone drip d/c * previous cath - 05/30/24 - LAD 90-100% occlusion, Left Cx 90-100% occlusion, RCA 90-100% occlusion * cont meto succ 25mg BID; imdur 30mg daily; resumed Eliquis 2.5mg BID; statin held due to abnormal LFTs #ICD/pacemaker status - * patient has Medtronic [place] XT device - placed 04/2024 due to VT and depressed LV function * interrogation this admission - nonsustained VT and a.fib with aberrancy; NO SUSTAINED VT seen * had received IV amiodarone bolus then drip - cardiology advised discontinuation * amiodarone 200mg BID - resumed #ESRD on HD - M/W/F - * missed HS session 12/08 * likely pulmonary edema upon admission * s/p HD 12/11 and again today * appreciate nephrology assistance * see "right arm pain" above re: AV fistula #chronic systolic CHF - * appears compensated today * volume control via HD * cont meto succ BID * not a candidate for TRACY/ARB/Entresto/aldactone due to ESRD #klebsiella UTI - * levaquin q48h; plan 7 days of Rx #abnormal LFTs - * 2nd to hepatic congestion/shock liver in setting of hypoperfusion during her unresponsive episode? * 2nd to statin? * 2nd to amiodarone? * other? * holding statin * serial LFTs - levels improved today * RUQ u/s noted (no acute cholecystitis) * appreciate GI consult - nothing to do on their end * repeat LFTs in am tomorrow #constipation - * improved s/p dulcolax suppox yesterday * then miralax daily for bowel maintenance #severe - * not a TAVR candidate * severe * certainly can contribute to syncope but patient was not walking or upright during her episode at the SNF #atrial fibrillation - * cont Eliquis 2.5mg BID * cont amiodarone 200mg BID * cont meto succ 25mg BID * TSH 2.5 in 08/2024 Chronic stable diagnoses: CLL leukocytosis is 2nd to such; follow; repeat CBC am tomorrow hypothyroidism - continue levothyroxine; TSH wnl in 09/05 insomnia - continue melatonin anxiety - continue lorazepam and sertraline GERD - continue PPI daughter extensively updated by phone 12/12/24 , 12/13/24 , and 0n 12/14/24 spoke to daughter about blood in stool which was painless possibility is that this is internal hemorrhoids patient's daughter wanted GI consultation she was updated on cell #[phone] Patient refused to get colonoscopy or sigmoidoscopy done by report patient was largely bed or wheelchair bound at [facility] - but patient states she was walking some about 1-2 weeks ago in light of need for therapy for right hand/arm and for generalized conditioning will ask PT/OT to see in consult Appreciate gastroenterology input for patient after patient declined sigmoidoscopy she needs to follow-up outpatient for pelvic floor therapy physical therapy and use of fiber Admission and Anticipated Discharge Date Admission Date: December 10, 2024 Srikanth Oquendo was seen and evaluated this morning. She looks otherwise well, denies any symptoms. She feels she is ready to go home. Vital signs stable. Had dialysis yesterday, tolerated well. Review of Systems Review of Systems: gen - no fevers cv - no chest pain pulm - no dyspnea GI - no N/V musculo - she states she was walking at [facility] 1-2 weeks ago Physical Exam Physical Exam: gen - uncomfortable due to pain in right hand; on the HD machine neck - no JVD mouth - MMM heart - RRR, s1 s2, 3/6 holosystolic murmur RUSB lungs - CTA b/l anterior chest and mid-axillary region; could not listen to bases due to being on HD machine chest - right upper chest HD catheter abd - soft NT ND BS+; no HSM ext - no peripheral edema of legs; right arm - 2 incisions medial aspect of upper arm, clean; generalized swelling of upper right arm; some swelling extending below the right elbow and into the right wrist/hand; no cellulitis any location vascular - perfusion of right hand is normal musculo - ongoing "claw hand" appearance of right hand with all fingers flexed but particularly the 3rd/4th/5th fingers; no synovitis of any finger; ?synovitis of right wrist; handgrip on right still weak; unable to fully extend the fingers of right hand; right wrist flexion/extension mildly improved today psych - recall intact, awake, alert Results & Data Results & Data Vital Signs (Past 12 Hours) Vital Signs Temp Pulse Pulse Resp BP Pulse Ox O2 Del Method 12/16/24 16:00 36.7 C 70 18 92/50 L 96 Room Air 12/16/24 11:48 36.7 C 60 18 96/48 L 97 Room Air 12/16/24 08:00 36.7 C 60 17 103/65 96 Room Air 12/16/24 07:00 61 12/16/24 07:00 Room Air PG Care Time/CCT Total # of Minutes Spent Total Time Spent with Patient: Total time spent is greater than 50% in coordination of care (as documented) at patient's floor/unit and/or counseling patient: Coding Level of Care Code 77632 SUB INP/OBS CARE 2/35MIN Diagnoses Right arm pain M79.601 AV fistula I77.0 Constipation K59.00 Acute hypoxemic respiratory failure J96.01 Aspiration pneumonia J69.0 UTI (urinary tract infection) N39.0 Elevated troponin R79.89 ESRD on dialysis N18.6; Z99.2 Pulmonary edema J81.1 Transaminitis R74.01 Hypotension I95.9 Ischemic cardiomyopathy I25.5 Nonsustained ventricular tachycardia I47.29 ICD (implantable cardioverter-defibrillator) in place Z95.810 HFrEF (heart failure with reduced ejection fraction) I50.20 Coronary artery disease involving [place] coronary artery of [place] heart without angina pectoris I25.10 Coronary Disease-Associated Artery/Lesion type: [place] artery [place] vs. transplanted heart: [place] heart Associated angina: without angina CLL (chronic lymphocytic leukemia) C91.10 Severe aortic stenosis I35.0 Left ventricular aneurysm I25.3 Time Spent (min) 30 (16) CAD (coronary artery disease) Coronary Disease-Associated Artery/Lesion type: [place] artery [place] vs. transplanted heart: [place] heart Associated angina: without angina Qualified Code(s): I25.10 - Atherosclerotic heart disease of [place] coronary artery without angina pectoris
[2024-12-16] MEDS: MELATONIN 3 MG TAB PO PRN (21:24)
[2024-12-17 07:08] VITALS: PULSE 60
[2024-12-17 07:42] VITALS: BP 117/57; RESP 18; O2SAT 93
[2024-12-17 07:46] VITALS: TEMP 97.7
--- NOTE | 2024-12-17 10:59 | Nephrology Progress Note ---
Date of Service December 17, 2024 Assessment & Plan (1) ESRD on dialysis: (2) Anemia: (3) RLL pneumonia: (4) Elevated troponin: Plan Mrs Diaz is a 79 year old female with ESRD on HD MWF, ASCVD, h/o AMI 2010, CHF, paroxysmal atrial fibrillation, AODM, CLL. Admitted to the hospital on 12/10/24 with an episode of unresponsiveness, concern for STEMI,. Rt LL pneumonia. Also found to have UTI, now on Levaquin. Blood pressure relatively stable, asymptomatic. Volume status acceptable. --Okay to be discharged as clinically otherwise she is stable, she can have dialysis Wednesday at [facility]. --Dose medications for eGFR less than 10 --rt arm precaution. Admission and Anticipated Discharge Date Admission Date: December 10, 2024 Srikanth Oquendo was seen and evaluated this morning. She has been doing well, continues to have some pain in right arm but overall looking better, swelling and erythema resolved. She is waiting to go home. Vital signs stable. Had dialysis Wednesday. Review of Systems Review of Systems: Detailed review of system otherwise unremarkable. Physical Exam Constitutional: WD/WN, vitals as above no acute distress Eyes: + anicteric sclerae Respiratory: no respiratory distress Auscultation: lungs clear to auscultation bilaterally Cardiovascular: RRR, no murmur, no edema Rate/Rhythm: + irregularly irregular Heart Sounds: normal S1 and normal S2 Extremities: + AV fistula (rt BC ABF with bruit, krystian in place); no edema Skin: no rashes, warm and dry Neurologic: no focal motor deficits Psychiatric: Orientation: alert and oriented x 3 Affect: euthymic affect Results & Data Vital Signs (Past 12 Hours) Vital Signs Temp Pulse Pulse Resp BP Pulse Ox O2 Del Method 12/17/24 07:45 36.5 C 12/17/24 07:41 60 18 117/57 L 93 Room Air 12/17/24 07:18 Room Air 12/17/24 07:07 60 12/17/24 04:32 36.8 C 59 L 17 104/65 97 Room Air 12/16/24 23:55 36.4 C L 62 17 93/56 L 95 Room Air PG Care Time/CCT Total # of Minutes Spent Total Time Spent with Patient: Total time spent is greater than 50% in coordination of care (as documented) at patient's floor/unit and/or counseling patient: Coding Level of Care Code 96307 SUB INP/OBS CARE MIN Diagnoses ESRD on dialysis N18.6; Z99.2 Anemia D64.9 RLL pneumonia J18.9 Pneumonia type: due to unspecified organism Elevated troponin R79.89 (3) RLL pneumonia Pneumonia type: due to unspecified organism Qualified Code(s): J18.9 - Pneumonia, unspecified organism
--- NOTE | 2024-12-17 17:10 | Discharge Summary ---
Date of Service December 17, 2024 Admission HPI Per Admitting Provider Patient is an 83-year-old female with history of heart failure reduced ejection fraction (most recent EF 05/2420 to 25%), three-vessel disease, severe aortic stenosis, CKD on dialysis, A-fib on Eliquis s/p pacer. She came into the ED due to an unresponsive episode where she [facility]. EMS found her to have oxygen levels in the 80s and started her on 4 L nasal cannula. Patient stated she had a fluttering in her chest and nausea prior to the episode. [employer] report showed sustained V. tach. EKG showed T wave inversions in inferior and anterior leads. Patient was found to have a troponin of 5188.4. She was started on heparin drip, amiodarone bolus and drip. Differential includes but not limited to ischemia vs troponin elevated 2/2 tachycardia. ED provider spoke with director airport operations pens and pencils dipper and garden labourer, recommended heparin drip and eval in AM. Patient also found to have right sided diffuse PNA and pulmonary edema, consider aspiration with unresponsive event. Also, found to have transaminitis, suspect hepatic congestion. Of note, EMS stated patient missed dialysis 12/08, patient denies. Patient seen at bedside. She is alert and oriented x 4 however does appear somewhat confused. She stated she does remember the episode earlier however denies any chest pain or shortness of breath prior to. She denies any cough. She stated she feels well right now, other than mild nausea. Patient denies dizziness, lightheadedness, cough, sputum production, dyspnea, dyspnea on exertion, chest pain, abdominal pain, vomiting, diarrhea, constipation, dysuria, hematuria. She had a fistula placed , has been red and swollen since his procedure. She denies nicotine or alcohol use. She resides at [facility]. She stated she does have a history of chronic leukemia, has a chronically elevated white blood cell count. She stated she did not get her morning medications today. She wishes to be full code. She does not use oxygen at baseline. she stated her family knows that she is here. Patient does still make urine. Provider stated he spoke with [employer] merchandising representative who stated the pacer did show sustained V. tach however pacer did not to NSR given in the setting 130- 170. ER provider spoke with on-call pens and pencils dipper and Director S[employer] Sales pens and pencils dipper who recommended no immediate intervention, start heparin drip and amiodarone Cristal your clinical opinion, is this patient being managed for: * Admission Exam (Per Admitting) Constitutional gen - uncomfortable due to pain in right hand; on the HD machine neck - no JVD mouth - MMM heart - RRR, s1 s2, 3/6 holosystolic murmur RUSB lungs - CTA b/l anterior chest and mid-axillary region; could not listen to base s due to being on HD machine chest - right upper chest HD catheter abd - soft NT ND BS+; no HSM ext - no peripheral edema of legs; right arm - 2 incisions medial aspect of upper arm, clean; generalized swelling of upper right arm; some swelling extending below the right elbow and into the right wrist/hand; no cellulitis any location vascular - perfusion of right hand is normal musculo - ongoing "claw hand" appearance of right hand with all fingers flexed but particularly the 3rd/4th/5th fingers; no synovitis of any finger; ?synovitis of right wrist; handgrip on right still weak; unable to fully extend the fingers of right hand; right wrist flexion/extension mildly improved today psych - recall intact, awake, alert Discharge Data Consultations 12/10/24 21:51 ED Decision to Admit Stat 12/11/24 02:35 Consult Cardiology Routine Consult Gastroenterology Routine Consult Nephrology Routine 12/12/24 19:28 Consult Vascular Surgery Routine 12/14/24 14:52 Consult Gastroenterology Routine Hospital Course (1) Right arm pain: (2) AV fistula: (3) Constipation: (4) Acute hypoxemic respiratory failure: (5) Aspiration pneumonia: (6) UTI (urinary tract infection): (7) Elevated troponin: (8) ESRD on dialysis: (9) Pulmonary edema: (10) Transaminitis: (11) Hypotension: (12) Ischemic cardiomyopathy: (13) Nonsustained ventricular tachycardia: (14) ICD (implantable cardioverter-defibrillator) in place: (15) HFrEF (heart failure with reduced ejection fraction): (16) CAD (coronary artery disease): (17) CLL (chronic lymphocytic leukemia): (18) Severe aortic stenosis: (19) Left ventricular aneurysm: Plan 83yo female - HFrEF (EF 25-30%), severe CAD (all 3 epicardial vessels), severe aortic stenosis, ESRD on HD M/W/F, A-fib on Eliquis, ICD/pacemaker status, LV aneurysm, CLL. Presented from [facility] due to unresponsive episode and acute hypoxic resp failure. EMS found her to have oxygen levels in the 80s upon arrival to SNF. By report patient stated she had a fluttering in her chest and nausea prior to the episode. Upon presentation to [facility] found to have a troponin of 5188.[address] segment elevations in the anteroseptal leads with inferior ST depression. Started on heparin drip, amiodarone bolus and drip. Additionally her chest imaging showed right sided pneumonia & pulm edema. Labs revealed elevated LFTs. #acute hypoxic resp failure - * likely 2nd to pneumonia and pulmonary edema * improved s/p HD on 12/11 as well as antibiotics for pneumonia * O2 has been weaned off with stable sats in room air #right-sided pneumonia - * typical vs aspiration vs gram negative all possible * currently on levaquin q48h * stable, improved, minimal symptoms * MRSA screen negative antibiotics course is complete #right arm pain - * most severe pain is distally in the right wrist and right hand * she has evidence of what looks like ulnar nerve compromise leading to her exam findings * description of pain sounds neuropathic (hyperalgesia, intermittent, sharp, etc) * cont oxycodone 2.5mg prn * cont low-dose gabapentin (in light of hepatic dysfunction, advanced age, etc) - 50mg HS, then advance to 50mg BID tomorrow * arterial duplex study of RLE obtained -- no steal phenomenon from her AV fistula; blood flow to the hand is intact; pain is not due to ischemia * recent RUE venous duplex neg for DVT * x-rays of R wrist/hand - no fractures; 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 nerve injury s/p AV fistula creation? other? * will ultimately need PT/OT for the right arm and hand * I don't think she has acute pseudogout of the right hand, but could consider l ow-dose prednisone (10mg daily for a few days) if pain persists over the location of the CPPD seen on hand x-rays * daughter concerned about gabapentin usage; however, daughter looked up her dose years ago, and she was on 300mg TID in the past * reassured her we have started very low and her ultimate dose will be much lower than what was used in the past #Elevated Troponin / known, severe triple-vessel CAD - Myocardial infarction type 2 due to demand ischemiaus. * peak HS troponin - 5888 * appreciate [facility] cardiology consultation * STEMI/NSTEMI not suspected * troponin elevation - myocardial demand ischemia in the setting of her acute hypoxic resp failure, pneumonia, UTI, other acute issues * echo with NO changes in comparison to previous echo (slight improvement in EF actually) * Dr Truong states that ST segment elevations can be difficult to interpret in setting of LV aneurysm * repeat EKG today with improved ST segment elevations * pt is not having any ischemic symptoms at this time and did not have any at time of admission * Dr Truong did not recommend heart cath; previous heparin drip d/c; previous amiodarone drip d/c * previous cath - 05/30/24 - LAD 90-100% occlusion, Left Cx 90-100% occlusion, RCA 90-100% occlusion * cont meto succ 25mg BID; imdur 30mg daily; resumed Eliquis 2.5mg BID; statin held due to abnormal LFTs #ICD/pacemaker status - * patient has [employer] [place] XT device - placed 04/2024 due to VT and depressed LV function * interrogation this admission - nonsustained VT and a.fib with aberrancy; NO SUSTAINED VT seen * had received IV amiodarone bolus then drip - cardiology advised discontinuation * amiodarone 200mg BID - resumed #ESRD on HD - // - * missed HS session 12/08 * likely pulmonary edema upon admission * s/p HD 12/11 and again today * appreciate nephrology assistance * see "right arm pain" above re: AV fistula #chronic systolic CHF - * appears compensated today * volume control via HD * cont meto succ BID * not a candidate for TRACY/ARB/Entresto/aldactone due to ESRD #klebsiella UTI - * levaquin q48h; plan 7 days of Rx * Finished antibiotic #abnormal LFTs - * 2nd to hepatic congestion/shock liver in setting of hypoperfusion during her unresponsive episode? * 2nd to statin? * 2nd to amiodarone? * other? * holding statin * serial LFTs - levels improved today * RUQ u/s noted (no acute cholecystitis) * appreciate GI consult - nothing to do on their end * repeat LFTs in am tomorrow * Patient is stable she has no anorexia and she is tolerating diet very well #constipation - * improved s/p dulcolax suppox yesterday * then miralax daily for bowel maintenance #severe - * not a TAVR candidate * severe * certainly can contribute to syncope but patient was not walking or upright during her episode at the SNF #atrial fibrillation - * cont Eliquis 2.5mg BID * cont amiodarone 200mg BID * cont meto succ 25mg BID * TSH 2.5 in 08/2024 Chronic stable diagnoses: CLL leukocytosis is 2nd to such; follow; repeat CBC am tomorrow hypothyroidism - continue levothyroxine; TSH wnl in 09/05 insomnia - continue melatonin anxiety - continue lorazepam and sertraline GERD - continue PPI daughter extensively updated by phone 12/12/24 , 12/13/24 , and 0n 12/14/24 spoke to daughter about blood in stool which was painless possibility is that this is internal hemorrhoids patient's daughter wanted GI consultation she was updated on cell #[phone] Patient refused to get colonoscopy or sigmoidoscopy done by report patient was largely bed or wheelchair bound at [facility] - but patient states she was walking some about 1-2 weeks ago in light of need for therapy for right hand/arm and for generalized conditioning will ask PT/OT to see in consult Appreciate gastroenterology input for patient after patient declined sigmoidoscopy she needs to follow-up outpatient for pelvic floor therapy physical therapy and use of fiber Coding Level of Care Code 47727 INP/OBS DISCH >30 MIN Diagnoses Right arm pain M79.601 AV fistula I77.0 Constipation K59.00 Acute hypoxemic respiratory failure J96.01 Aspiration pneumonia J69.0 UTI (urinary tract infection) N39.0 Elevated troponin R79.89 ESRD on dialysis N18.6; Z99.2 Pulmonary edema J81.1 Transaminitis R74.01 Hypotension I95.9 Ischemic cardiomyopathy I25.5 Nonsustained ventricular tachycardia I47.29 ICD (implantable cardioverter-defibrillator) in place Z95.810 HFrEF (heart failure with reduced ejection fraction) I50.20 Coronary artery disease involving [place] coronary artery of [place] heart without angina pectoris I25.10 Coronary Disease-Associated Artery/Lesion type: [place] artery [place] vs. transplanted heart: [place] heart Associated angina: without angina CLL (chronic lymphocytic leukemia) C91.10 Severe aortic stenosis I35.0 Left ventricular aneurysm I25.3
== END 2024-12-17 14:00 | DRG 189 ==
LOC: SUATTDRO → ED 19:17 → 2E 23:34 → SUATTDRO 23:34 → 2E 12-11 00:30